=== PATIENT | male | born 1950 | race African-American/Black ===

== ENCOUNTER 2018-05-09 09:11 | Emergency (ER) | payer MEDICARE, OTHER, SELFPAY ==
[2018-05-09 09:13] VITALS: BP 166/70; PULSE 64; RESP 12; TEMP 36.3; O2SAT 100; BMI 39.7
--- NOTE | 2018-05-09 09:33 | DI.RAD.S_ITS ---
PROCEDURE: XR CHEST 2V INDICATIONS: burning in chest, right chest. TECHNIQUE: 2 views of the chest were acquired. COMPARISON: [facility], , CHEST 1 VIEW, 04/30/2013, 12:37. FINDINGS: Surgical changes and devices: None. Lungs and pleura: No pleural effusions or pneumothorax. Lungs are clear. Mediastinum: Mediastinal contours are normal. Heart size is normal. Bones and chest wall: No suspicious bony abnormalities. Soft tissues appear unremarkable. IMPRESSION: Mildly reduced inspiratory volume, no acute disease. Dictated by: Josué Figueroa M.D. on 05/09/2018 at 10:25 Approved by: Josué Figueroa M.D. on 05/09/2018 at 10:25
[2018-05-09 09:44] LABS: Add Manual Diff / Slide Review NO; Basophils Percent Auto 1.1 % (0-2); Eosinophils Percent Auto 4.7 % (2-4); Hematocrit 39.3 % (41-53); Hemoglobin 13.5 g/dL (13.5-17.5); Lymphocytes Percent Auto 36.7 % (25-40); Mean Corpuscular HGB Conc 34.3 % (30-36); Mean Corpuscular Hemoglobin 29.8 PG (26-34); Monocytes Percent Auto 9.2 % (3-14); Neutrophils Absolute Auto 1400 /uL (3000-5900); Neutrophils Percent Auto 48.3 % (50-75); Platelet Count 125 X10^3/uL (150-400); Red Blood Cell Count 4.52 X10^6/uL (4.5-5.9); Red Cell Distribution Width 15.6 % (11.6-14.8); White Blood Cell Count 2.9 X10^3/uL (4.5-11.0)
[2018-05-09 09:51] LABS: Prothrombin Time 11.1 SECONDS (10.1-12.7)
[2018-05-09 09:54] LABS: PTT Partial Thromboplastin Tim 27 SECONDS (26.4-36.2)
[2018-05-09 09:55] LABS: Alanine Aminotransferase 30 IU/L (21-72); Albumin 4.2 g/dL (3.5-5.0); Albumin Globulin Ratio 1.7 (1.0-2.8); Alkaline Phosphatase 92 U/L (38-126); Aspartate Aminotransferase 23 IU/L (17-59); BUN Creatinine Ratio 15.3 (6-22); Bilirubin Total 0.7 mg/dL (0.2-1.3); Blood Urea Nitrogen 26 mg/dL (9-20); Calcium 9.4 mg/dL (8.4-10.2); Carbon Dioxide 35 mmol/L (22-32); Chloride 96 mmol/L (98-107); Creatine Kinase 165 U/L (55-170); Estimated Glomerular Filt Rate 40.7 mL/min (>60); Globulin 2.5 g/dL (1.7-4.1); Glucose 228 mg/dL (80-110); HEMOLYSIS 16 (0-50); Lipase 77 U/L (23-300); Potassium 3.6 mmol/L (3.4-5.1); Sodium 140 mmol/L (137-145); Total Protein 6.7 g/dL (6.3-8.2)
[2018-05-09] MEDS: ASPIRIN 81 MG TAB 324 MG PO (09:55)
[2018-05-09 10:07] LABS: B Type Natriuretic Peptide < 100.0 (<100); Troponin I 0.022 ng/mL (0.01-0.034)
[2018-05-09 10:10] LABS: CKMB % Relative Index 0.6 % (1.5-5.0); Creatine Kinase MB 0.96 ng/mL (<2.37)
[2018-05-09 11:00] VITALS: BP 141/61; PULSE 65; O2SAT 98
[2018-05-09 12:00] VITALS: BP 137/61; PULSE 60; O2SAT 96
[2018-05-09 13:15] VITALS: BP 149/68; PULSE 64; O2SAT 97
--- NOTE | 2018-05-09 13:27 | ED.CHESTPAIN ---
HPI - Chest Pain General Chief Complaint: Chest Pain Stated Complaint: BURNING SENSATION IN CHEST/BACK,SORE IN APEX AREA History of Present Illness HPI narrative: HPI 67-year-old morbidly obese male with IDDM, asthma, CHF, renal insufficiency, HLD and atrial fibrillation presents for evaluation of 3 weeks of gradually progressive burning right-sided subpectoral/pectoral pain that radiates outwards around to his back is without clear provoking or relieving factors. Patient believes he may have had a recent stress test. Patient presented as his symptoms are worsened and he is unable to see his primary care physician. Patient denies recent immobilization, leg trauma, estrogen use, surgery in the last four weeks, hemoptysis, or malignancy in the last 6 months. [facility] a [facility] where requested and are unavailable. M/S/F/SocHx notable for: please see HPI; remainder reviewed with patient and in chart. ROS: Negative constitutional, eye, cardiovascular, pulmonary, GI, , MSK, skin, neurologic, psychiatric, endocrine unless noted in the HPI. Exam Gen: Pleasant, non-toxic appearing, resting comfortably. HEENT: NC, AT, PEERL, EOMI. Resp: Clear to auscultation bilaterally, normal work of breathing. Card: RRR with no M/R/G, no crackles in lung bases, no pedal edema, no JVD appreciated. GI: NT/ND Vascular: Both ankles, calves, and thighs of equal size, no calf tenderness to palpation bilaterally. MSK: No chest wall TTP. No visible deformities, strength and tone WNL. Skin: Normal color with no visible lesions, no vesicles on the chest. Neuro: AO x 3, no facial asymmetry, vision and hearing WNL. Psych: Mood and affect appropriate. Labs / Imaging (pertinent): WBC 2.9, Hb 13.5, PT/INR 1.0, Na 140, K 3.6, creatinine 1.70, glucose 228, total bilirubin 0.7, AST 23, ALT 30, ALP 92, lipase 77. Troponin (9:35 AM) 0.022, troponin (1:55 AM) 0.020, BNP <100 EKG: SR at 62 bpm, no OH segment depressions, no new ST segment changes, new LBBB, or T-wave changes that would suggest acute ischemia. CXR: mildly reduced inspiratory volume, no acute disease. MDM Previous chart, nursing note, and vitals reviewed. A: 67-year-old morbidly obese male with IDDM, asthma, CHF, renal insufficiency, HLD and atrial fibrillation presents for evaluation of 3 weeks of gradually progressive burning right-sided subpectoral/pectoral pain that radiates outwards around to his back is without clear provoking or relieving factors. DDx and Evaluation: * ACS - doubt ACS given a non-ischemic EKG and negative serial troponins. * UA - patient with the atypical history for unstable angina, HEART score 4 (Hx - 0, EKG - 0, age - 2, risk factors - 2, troponin - 0; 30 day MACE: 12 to 16.6%). Admission was discussed with the patient, patient would prefer to follow up with his home service technician, risks and benefits reviewed. * Pericarditis - consider pericarditis unlikely given the lack of OH segment depressions as well as the absence of diffuse ST-segment elevations, lack of reduction of pain when supine, and lack of a friction rub. * Myocarditis - unlikely given the negative troponin and an EKG without characteristic OH-segment or ST-segment changes. * Dissection - dissection is unlikely given symptoms, and lack of mediastinal widening. * PE - low clinical suspicion given history and alternate diagnosis, further risk stratification (e.g.) Well's not indicated. * Mediastinal Air - no evidence by CXR or auscultation. * Pneumothorax - no evidence by CXR or physical exam. * MSK - doubt given lack of reproducibility on exam. * Endocarditis - no identifiable risk factors, patient afebrile, no new murmurs appreciated on exam; doubt. * Cutaneous process - skin exam without identifiable abnormalities. ED Course: Vital signs remained stable and within clinically acceptable limits. Disposition: Discharge with PCP follow up. Return to care precautions given verbally and in writing. Impression: Chest Pain. (please reference below for remainder of encounter information) Related Data Home Medications Medication Instructions Recorded Confirmed carvedilol [Coreg] 12.5 mg PO BID #0 04/30/13 05/09/18 polyethylene glycol 3350 [Miralax] 17 gm PO QDAYP #0 04/30/13 allopurinol #0 04/16/17 amlodipine [Norvasc] 10 mg PO QDAY #0 04/16/17 05/09/18 bumetanide 6 mg PO DAILY #0 04/16/17 05/09/18 dexlansoprazole [Dexilant] 60 mg PO DAILY #0 04/16/17 05/09/18 diclofenac sodium [Voltaren] 1 tj TOPICAL BID #0 04/16/17 05/09/18 doxazosin [Cardura] 8 mg PO #0 04/16/17 fexofenadine #0 04/16/17 insulin aspart U-100 [Novolog 30 unit SQ TIDCC #0 04/16/17 Flexpen U-100 Insulin] insulin glargine [Lantus Solostar 60 unit SQ QPM #0 04/16/17 U-100 Insulin] oxybutynin chloride 5 mg PO BID #0 04/16/17 sildenafil [Viagra] 100 mg PO PRN PRN #0 04/16/17 Colace 05/09/18 flaxseed 05/09/18 Allergies Allergy/AdvReac Type Severity Reaction Status Date / Time No Known Drug Allergies Allergy Verified 05/09/18 09:17 [facility] Medical History Constipation (Acute) GERD (gastroesophageal reflux disease) (Acute) HTN (hypertension) (Acute) Heart failure (Acute) Hypercholesteremia (Acute) Knee pain (Acute) Renal disease (Acute) Social History Smoking Status: Former smoker Exam Initial Vital Signs Initial Vital Signs: Vital Signs Temperature 97.4 F L 05/09/18 09:13 Pulse Rate 64 05/09/18 09:13 Respiratory Rate 12 05/09/18 09:13 Blood Pressure 166/70 H 05/09/18 09:13 Pulse Oximetry 100 05/09/18 09:13 Course Orders Ordered: ED Orders 05/09/18 09:33 Chest [XR chest 2V] Stat EKG-12 Lead Stat 05/09/18 09:35 BNP [B Type Natriuretic Peptide] Stat Complete Blood Count AUTO DIFF Stat Comprehensive Metabolic Panel Stat Lipase Stat Partial Thromboplastin Time Stat Prothrombin Time INR Stat Troponin & CK Cardiac Panel Stat 05/09/18 11:55 Troponin I Stat Discontinued Medications Aspirin (Aspirin Chew) 324 mg PO NOW ONE Stop: 05/09/18 09:34 Last Admin: 05/09/18 09:55 Dose: 324 mg Vital Signs - 8 hr 05/09/18 09:13 05/09/18 11:00 05/09/18 12:00 Temperature 97.4 F L Pulse Rate 64 65 60 Respiratory Rate 12 Blood Pressure 166/70 H Blood Pressure [Left Arm] 141/61 H 137/61 H Pulse Oximetry 100 98 96 05/09/18 13:15 Temperature Pulse Rate 64 Respiratory Rate Blood Pressure Blood Pressure [Left Arm] 149/68 H Pulse Oximetry 97 MDM - Chest Pain Lab Data Result diagrams: 05/09/18 09:35 05/09/18 09:35 Lab Results 05/09/18 05/09/18 05/09/18 Range/Units 09:35 09:35 09:35 WBC 2.9 L (4.5-11.0) X10^3/uL RBC 4.52 (4.5-5.9) X10^6/uL Hgb 13.5 (13.5-17.5) g/dL Hct 39.3 L (41-53) % MCV 87.0 (80-100) fL MCH 29.8 (26-34) PG MCHC 34.3 (30-36) % RDW 15.6 H (11.6-14.8) % Plt Count 125 L (150-400) X10^3/uL Neut % (Auto) 48.3 L (50-75) % Lymph % (Auto) 36.7 (25-40) % Hopkins % (Auto) 9.2 (3-14) % Eos % (Auto) 4.7 H (2-4) % Baso % (Auto) 1.1 (0-2) % Neut # (Auto) 1400 L (5295-6277) /uL PT 11.1 (10.1-12.7) SECONDS INR 1.0 (0.9-1.3) APTT 27 (26.4-36.2) SECONDS Sodium 140 (137-145) mmol/L Potassium 3.6 (3.4-5.1) mmol/L Chloride 96 L (98-107) mmol/L Carbon Dioxide 35 H (22-32) mmol/L BUN 26 H (9-20) mg/dL Creatinine 1.70 H (0.66-1.25) mg/dL Estimated GFR 40.7 L (>60) mL/min BUN/Creatinine Ratio 15.3 (6-22) Glucose 228 H (80-110) mg/dL Calcium 9.4 (8.4-10.2) mg/dL Total Bilirubin 0.7 (0.2-1.3) mg/dL AST 23 (17-59) IU/L ALT 30 (21-72) IU/L Alkaline Phosphatase 92 (38-126) U/L Total Creatine Kinase 165 (55-170) U/L CK-MB (CK-2) 0.96 (<2.37) ng/mL CK-MB (CK-2) Rel Index 0.6 L (1.5-5.0) % Troponin I 0.022 (0.01-0.034) ng/mL B-Natriuretic Peptide (<100) Total Protein 6.7 (6.3-8.2) g/dL Albumin 4.2 (3.5-5.0) g/dL Globulin 2.5 (1.7-4.1) g/dL Albumin/Globulin Ratio 1.7 (1.0-2.8) Lipase 77 (23-300) U/L 05/09/18 05/09/18 Range/Units 09:35 11:55 WBC (4.5-11.0) X10^3/uL RBC (4.5-5.9) X10^6/uL Hgb (13.5-17.5) g/dL Hct (41-53) % MCV (80-100) fL MCH (26-34) PG MCHC (30-36) % RDW (11.6-14.8) % Plt Count (150-400) X10^3/uL Neut % (Auto) (50-75) % Lymph % (Auto) (25-40) % Hopkins % (Auto) (3-14) % Eos % (Auto) (2-4) % Baso % (Auto) (0-2) % Neut # (Auto) (0938-9991) /uL PT (10.1-12.7) SECONDS INR (0.9-1.3) APTT (26.4-36.2) SECONDS Sodium (137-145) mmol/L Potassium (3.4-5.1) mmol/L Chloride (98-107) mmol/L Carbon Dioxide (22-32) mmol/L BUN (9-20) mg/dL Creatinine (0.66-1.25) mg/dL Estimated GFR (>60) mL/min BUN/Creatinine Ratio (6-22) Glucose (80-110) mg/dL Calcium (8.4-10.2) mg/dL Total Bilirubin (0.2-1.3) mg/dL AST (17-59) IU/L ALT (21-72) IU/L Alkaline Phosphatase (38-126) U/L Total Creatine Kinase (55-170) U/L CK-MB (CK-2) (<2.37) ng/mL CK-MB (CK-2) Rel Index (1.5-5.0) % Troponin I 0.020 (0.01-0.034) ng/mL B-Natriuretic Peptide < 100.0 (<100) Total Protein (6.3-8.2) g/dL Albumin (3.5-5.0) g/dL Globulin (1.7-4.1) g/dL Albumin/Globulin Ratio (1.0-2.8) Lipase (23-300) U/L Discharge Plan Departure Prescriptions: No Action carvedilol [Coreg] 3.125 MG tablet 12.5 mg PO BID Qty: 0 RF: 0 polyethylene glycol 3350 [Miralax] 119 GM powder 17 gm PO QDAYP Qty: 0 RF: 0 insulin aspart U-100 [Novolog Flexpen U-100 Insulin] 100 UNIT/1 ML insulin pen 30 unit SQ TIDCC Qty: 0 RF: 0 diclofenac sodium [Voltaren] 1 % gel 1 tj Topical BID Qty: 0 RF: 0 dexlansoprazole [Dexilant] 60 MG capsule,biphase delayed releas 60 mg PO DAILY Qty: 0 RF: 0 insulin glargine [Lantus Solostar U-100 Insulin] 100 UNIT/1 ML insulin pen 60 unit SQ QPM Qty: 0 RF: 0 oxybutynin chloride 5 MG tablet 5 mg PO BID Qty: 0 RF: 0 bumetanide 1 MG tablet 6 mg PO DAILY Qty: 0 RF: 0 amlodipine [Norvasc] 5 MG tablet 10 mg PO QDAY Qty: 0 RF: 0 sildenafil [Viagra] 100 MG tablet 100 mg PO PRN PRN (Reason: Sexual Activity) Qty: 0 RF: 0 allopurinol 300 MG tablet Qty: 0 RF: 0 fexofenadine 180 MG tablet Qty: 0 RF: 0 doxazosin [Cardura] 8 MG tablet 8 mg PO Qty: 0 RF: 0 Colace RF: 0 flaxseed RF: 0
--- NOTE | 2018-05-10 11:43 | PC.NURSE ---
Follow up phone call: Spoke w/ patient. Has stress test scheduled tomorrow am. Denies new complaint at this time. Encouraged to f/u as needed and indicated and return for any difficulty or concerns.
== END 2018-05-09 13:49 | disposition home or self-care (01) ==
PROVIDERS: Emergency Provider Emergency Medicine
DX: R07.9 Chest pain, unspecified (principal)
CPT/HCPCS: 36415; 36591; 71046; 80053; 82550; 82553; 83690; 83880; 84484; 85025; 85610; 85730; 93005; 93010; 99283; 99285

== ENCOUNTER 2018-10-06 11:45 | Outpatient (RCR) | payer MEDICARE, OTHER, SELFPAY ==
--- NOTE | 2018-04-13 10:25 | PT.OIE ---
Current Diagnoses Spinal stenosis, cervical region (04/09/18) Lumbago with sciatica, left side (04/09/18) Weakness (04/09/18) Provider Visit Care Team Role Provider Type Yin Vásquez MD Family Provider Non-Staff Primary Care Provider Specialty: Medical Address: [address] [place] [address], [id number] Email: Gaurang Sam MD Attending Provider Physician Specialty: Orthopedic Surgery Address: [address] [place] [address], [id number] Email: [email or web address] Physical Therapy Initial Evaluation PT-OP-A Visit Information Start: 04/09/18 09:02 Freq: Status: Active Protocol: Document 04/09/18 09:05 [facility] (Rec: 04/13/18 10:13 [facility] [id number]) Out-Patient Physical Therapy Visit Information Visit Information Visit Type Initial Evaluation Visit Start Time 09:05 Visit Stop Time 09:45 Total Visit Minutes 40 Visit Number 1 Number of STEAM PRESS OPERATOR Visits 0 Evaluation Information Evaluation Date 04/09/18 PT-OP-B Current Condition Start: 04/09/18 09:02 Freq: Status: Active Protocol: Document 04/09/18 09:05 [facility] (Rec: 04/09/18 09:23 [facility] [id number]) Current Condition History of Current Condition Onset Date 30-40 yrs History of Current Condition Patient c/o constant pain, . Pinched nerves in neck causing pain into UEs, injection 03/29/18; pain better in right, but now has constant pain left. LBP L2 and L4 pinched nerves; left LE with burning and throbbing pain along entire outside of LE; injection planned for 04/19. 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 Unable to drive more than 15 minutes unless has heated seats then can last 1- 1 1/2 hrs. 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 States after doing any physical activities is often down for several days due to pain. and [id number] and daughter assist patient. Biggest goal is pain relief. PMH includes stage 4 kidney failure, CHF, HTN, diabetic polyneuropathy, DM. Patient has been referred for aquatic therapy Prior Treatments and Tests chiropractor, massage therapy, accupunture, shots, H-wave. Prior aquatic therapy at [facility]. Shallow water up to neck level is preference. No pain pills since 2006. Treatment Goals Patient/Caregiver Goals Pain relief, improved tolerance to activity Prior Functional Status Baseline Function- ADL's Independent Baseline Function- Mobility Independent Baseline Function- Gait no device Baseline Function- Work/School able to work, do yardwork Current Functional Impairments (Reported) Functional Limitations- ADL's All activity causes pain; assist of for dressing, bathing Functional Limitations- Mobility/Gait Requires 4WW for any community distances Functional Limitations- Work/School unable Personal Factors Other Personal Factors That May Effect depression Therapy/Recovery PT-OP-C Subjective Start: 04/09/18 09:02 Freq: Status: Active Protocol: Document 04/09/18 09:05 [facility] (Rec: 04/13/18 10:13 [facility] [id number]) Patient Questionnaires Neck Disability Index NDI Score 68 Neck Disability Index Impairment 60 to 79% Impaired (Score 30- 39) Oswestry Low Back Index Oswestry Score 76 Oswestry Impairment 60 to 79% Impaired (Score 60- 79) OP-PT Pain Assessment Pain Assessment Grid Paper Pain Assessment Grid Completed Yes Location Generalized Pain Location Details bilateral c/s, shld, and l/s; left UE, left LE Scale Used Numeric (1 - 10) Description Aching Burning Chronic Pressure Radiating Sharp Shooting Spasm Throbbing With Movement Radiating Location left UE and LE Pain Aggravating Factors Activity Exercise Pain Alleviating Factors None Home Pain Medication Use Pain Medications Used No Pain Behaviors Pain Behaviors Facial Grimacing Guarding Wincing Comments Pain Comments see pain diagram in paper chart PT-OP-E Functional Tests Start: 04/09/18 09:02 Freq: Status: Active Protocol: Document 04/09/18 09:05 [facility] (Rec: 04/13/18 10:13 [facility] [id number]) Functional Tests Maryey's Scratch Test Action 1: The subject is instructed to touch the opposite shoulder with his/her hand. This motion checks Glenohumeral adduction, internal rotation , horizontal adduction and scapular protraction Action 2: The subject is instructed to place his/her arm overhead and reach behind the neck to touch his/her upper back. This motion checks Glenohumeral abduction, external rotation and scapular upward rotation and elevation. Action 3: The subject puts his/her hand on the lower back and reaches upward as far as possible. This motion checks glenohumeral adduction, internal rotation and scapular retraction with downward rotation Action 1- Left front of chest Action 1- Right front of chest Action 2- Left side of neck Action 2- Right side of neck Action 3- Left side of hip Action 3- Right side of hip PT-OP-F Manual Assessment Start: 04/09/18 09:02 Freq: Status: Active Protocol: Document 04/09/18 09:05 [facility] (Rec: 04/13/18 10:13 [facility] [id number]) Manual Assessments Soft Tissue Assessment Soft Tissue Mobility Assessment difficult to assess due to high pain level PT-OP-G Mobility & Gait Start: 04/09/18 09:02 Freq: Status: Active Protocol: Document 04/09/18 09:05 [facility] (Rec: 04/13/18 10:13 [facility] [id number]) OP Mobility Evaluation Bed Mobility Rolling independent but painful Supine to and from Sit independent but painful Functional Movements Squats painful Other Functional Movements Unable to reach overhead or behind his back due to pain OP Gait Assessment Gait Gait Assistance Required: Independent Gait Deviations General Gait Pattern Wide Based Gait Comments Gait Comments slow, guarded, antalgic PT-OP-H Neuro Start: 04/09/18 09:02 Freq: Status: Active Protocol: Document 04/09/18 05:14 [facility] (Rec: 04/13/18 10:24 [facility] [id number]) Sensation Evaluation Gross Sensation Gross Sensation Left UE Impaired Right UE Impaired Left LE Impaired Right LE Impaired PT-OP-K Range of Motion Start: 04/09/18 09:02 Freq: Status: Active Protocol: Document 04/09/18 09:05 [facility] (Rec: 04/13/18 10:13 [facility] [id number]) Cervical Spine Range of Motion Cervical Spine Active Testing Position Sitting ROM Limitations Pain Comments moderately limited all motions due to pain Lumbar Spine Range of Motion Lumbar Spine Active ROM Limitations Pain Comments Moderately limited all motions due to pain Shoulder Goniometric Range of Motion Shoulder Measured in Degrees Left Shoulder ROM WFL No Right Shoulder ROM WFL No Shoulder ROM Limitations Shoulder ROM Limitations Muscle Weakness Pain Comments Unable to reach overhead or behind his back due to pain bilaterally Hip Goniometric Range of Motion Hip ROM Limitations Hip ROM Limitations Pain Comments moderately decreased due to pain bilaterally Knee Goniometric Range of Motion Knee ROM Limitations Comments WNL fuad Ankle and Foot Goniometric Range of Motion Ankle and Foot ROM Limitations Comments WNL fuad PT-OP-T Assessment and Plan Start: 04/13/18 10:13 Freq: Status: Active Protocol: Document 04/09/18 05:14 [facility] (Rec: 04/13/18 10:24 [facility] [id number]) Physical Therapy Assessment Rehab Potential Rehabilitation Potential Good Evaluation Complexity Number of Personal Factors/Comorbidities 3 or More Number of Body Systems Impaired 3 Clinical Presentation at Evaluation Evolving Impairments Impairments Activity Tolerance Functional Activities Functional Mobility Pain ROM Strength Goals Five Impairment activity intolerance Short Term Goal (STG) Patient able to tolerate 30-45 min aquatic exercise program without excess fatigue or pain STG Duration 6 wks Reverse Engineer Goal (LTG) Patient to be safe and independent in a 45 min aquatic exercise program for long-term pain managment and fitness Four Impairment ROM Reverse Engineer Goal (LTG) Improve ROM in neck, shoulders , spine, and hips to WFL with minimal to no pain including ability to reach overhead and behind his back so he can be independent with bathing and dressing. LTG Duration 3 months Three Impairment activity tolerance/functional mobility: Oswestry Disability Index 76% Short Term Goal (STG) Decrease Oswestry score to 60% STG Duration 6 wks Usp Goal (LTG) Decrease Oswestry score to no greater than 40% LTG Duration 3 months Two Impairment activity tolerance: neck disability index 68% Short Term Goal (STG) Decrease neck disability index score to 55% STG Duration 6 wks Usp Goal (LTG) Decrease neck disability index score to no greater than 40% LTG Duration 3 months One Impairment Pain 8-9/10 Short Term Goal (STG) Decrease pain to no greater than 7/10 STG Duration 6 wks Usp Goal (LTG) Decrease pain to no greater than 4/10 LTG Duration 3 months Assessment Summary Assessment Patient presents with function -limiting pain in cervical and lumbar spines with radicular symptoms into left UE and LE. This is complicated by DM with diabetic neuropathy, CHG, depression. Feel he would benefit highly from aquatic therapy for pain management, ROM, and strengthening to improve his function and quality of life. Physical Therapy Plan Frequency and Duration Frequency of Treatment 2x/Week Duration of Treatment 3 months Plan of Care Start Date 04/09/18 Plan of Care End Date 07/09/18 Therapeutic Interventions Therapeutic Interventions Aquatic Therapy Home Exercise Program Patient/Caregiver Education Next Visit Focus/Plan Next Note Type Treatment Note Next Visit Plan Initiate aquatic therapy.
--- NOTE | 2018-04-13 10:26 | PT.OPPOC ---
Current Diagnoses Spinal stenosis, cervical region (04/09/18) Lumbago with sciatica, left side (04/09/18) Weakness (04/09/18) Provider Visit Care Team Role Provider Type Yin Vásquez MD Family Provider Non-Staff Primary Care Provider Specialty: Medical Address: [address] [place] [address], [phone] Email: Gaurang Sam MD Attending Provider Physician Specialty: Orthopedic Surgery Address: [address] [place] [address], [phone] Email: [email or web address] Plan Of Care PT-OP-T Assessment and Plan Start: 04/13/18 10:13 Freq: Status: Active Protocol: Document 04/09/18 05:14 [facility] (Rec: 04/13/18 10:24 [facility] [id number]) Physical Therapy Assessment Rehab Potential Rehabilitation Potential Good Evaluation Complexity Number of Personal Factors/Comorbidities 3 or More Number of Body Systems Impaired 3 Clinical Presentation at Evaluation Evolving Impairments Impairments Activity Tolerance Functional Activities Functional Mobility Pain ROM Strength Goals Five Impairment activity intolerance Short Term Goal (STG) Patient able to tolerate 30-45 min aquatic exercise program without excess fatigue or pain STG Duration 6 wks Senior Living Goal (LTG) Patient to be safe and independent in a 45 min aquatic exercise program for long-term pain managment and fitness Four Impairment ROM Commodities Manager Goal (LTG) Improve ROM in neck, shoulders , spine, and hips to WFL with minimal to no pain including ability to reach overhead and behind his back so he can be independent with bathing and dressing. LTG Duration 3 months Three Impairment activity tolerance/functional mobility: Oswestry Disability Index 76% Short Term Goal (STG) Decrease Oswestry score to 60% STG Duration 6 wks Senior Living Goal (LTG) Decrease Oswestry score to no greater than 40% LTG Duration 3 months Two Impairment activity tolerance: neck disability index 68% Short Term Goal (STG) Decrease neck disability index score to 55% STG Duration 6 wks Senior Living Goal (LTG) Decrease neck disability index score to no greater than 40% LTG Duration 3 months One Impairment Pain 8-9/10 Short Term Goal (STG) Decrease pain to no greater than 7/10 STG Duration 6 wks Senior Living Goal (LTG) Decrease pain to no greater than 4/10 LTG Duration 3 months Assessment Summary Assessment Patient presents with function -limiting pain in cervical and lumbar spines with radicular symptoms into left UE and LE. This is complicated by DM with diabetic neuropathy, CHG, depression. Feel he would benefit highly from aquatic therapy for pain management, ROM, and strengthening to improve his function and quality of life. Physical Therapy Plan Frequency and Duration Frequency of Treatment 2x/Week Duration of Treatment 3 months Plan of Care Start Date 04/09/18 Plan of Care End Date 07/09/18 Therapeutic Interventions Therapeutic Interventions Aquatic Therapy Home Exercise Program Patient/Caregiver Education Next Visit Focus/Plan Next Note Type Treatment Note Next Visit Plan Initiate aquatic therapy. Plan of Care Dates Plan of Care Start Date 04/09/18 Plan of Care End Date 07/09/18 Please Sign and Return: I have reviewed this Plan of Care and certify that the skilled therapy services above are required to meet the patient?s needs. Physician Signature Date Printed Name and Credentials Clinical Instructor Signature Printed Name and Credentials
--- NOTE | 2018-05-03 13:45 | PT.OTN ---
Current Diagnoses Spinal stenosis, cervical region (05/03/18) Physical Therapy Treatment Note PT-OP-A Visit Information Start: 04/09/18 09:02 Freq: Status: Active Protocol: Document 05/03/18 13:45 [facility] (Rec: 05/03/18 16:37 [facility] [id number]) Out-Patient Physical Therapy Visit Information Visit Information Visit Type Treatment Note Visit Start Time 13:10 Visit Stop Time 13:45 Total Visit Minutes 35 Visit Number 2 Number of GRAVITY METER OBSERVER Visits 1 PT-OP-B Current Condition Start: 04/09/18 09:02 Freq: Status: Active Protocol: Document 04/09/18 09:05 [facility] (Rec: 04/09/18 09:23 [facility] [id number]) Current Condition History of Current Condition Onset Date 30-40 yrs History of Current Condition Patient c/o constant pain, . Pinched nerves in neck causing pain into UEs, injection 03/29/18; pain better in right, but now has constant pain left. LBP L2 and L4 pinched nerves; left LE with burning and throbbing pain along entire outside of LE; injection planned for 04/19. 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 Unable to drive more than 15 minutes unless has heated seats then can last 1- 1 1/2 hrs. 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 States after doing any physical activities is often down for several days due to pain. and [id number] and daughter assist patient. Biggest goal is pain relief. PMH includes stage 4 kidney failure, CHF, HTN, diabetic polyneuropathy, DM. Patient has been referred for aquatic therapy Prior Treatments and Tests chiropractor, massage therapy, accupunture, shots, H-wave. Prior aquatic therapy at [place] helpful. Shallow water up to neck level is preference. No pain pills since 2006. Treatment Goals Patient/Caregiver Goals Pain relief, improved tolerance to activity Prior Functional Status Baseline Function- ADL's Independent Baseline Function- Mobility Independent Baseline Function- Gait no device Baseline Function- Work/School able to work, do yardwork Current Functional Impairments (Reported) Functional Limitations- ADL's All activity causes pain; assist of for dressing, bathing Functional Limitations- Mobility/Gait Requires 4WW for any community distances Functional Limitations- Work/School unable Personal Factors Other Personal Factors That May Effect depression Therapy/Recovery PT-OP-C Subjective Start: 04/09/18 09:02 Freq: Status: Active Protocol: Document 05/03/18 13:45 [facility] (Rec: 05/03/18 16:37 [facility] [id number]) OP-PT Subjective Patient Comments Patient Comments Pt. is hoping aquatic therapy is helpful, states he's not comfortable going in deep water. PT-OP-E Functional Tests Start: 04/09/18 09:02 Freq: Status: Active Protocol: Document 04/09/18 09:05 [facility] (Rec: 04/13/18 10:13 [facility] [id number]) Functional Tests Apley's Scratch Test Action 1: The subject is instructed to touch the opposite shoulder with his/her hand. This motion checks Glenohumeral adduction, internal rotation , horizontal adduction and scapular protraction Action 2: The subject is instructed to place his/her arm overhead and reach behind the neck to touch his/her upper back. This motion checks Glenohumeral abduction, external rotation and scapular upward rotation and elevation. Action 3: The subject puts his/her hand on the lower back and reaches upward as far as possible. This motion checks glenohumeral adduction, internal rotation and scapular retraction with downward rotation Action 1- Left front of chest Action 1- Right front of chest Action 2- Left side of neck Action 2- Right side of neck Action 3- Left side of hip Action 3- Right side of hip PT-OP-F Manual Assessment Start: 04/09/18 09:02 Freq: Status: Active Protocol: Document 04/09/18 09:05 [facility] (Rec: 04/13/18 10:13 [facility] [id number]) Manual Assessments Soft Tissue Assessment Soft Tissue Mobility Assessment difficult to assess due to high pain level PT-OP-G Mobility & Gait Start: 04/09/18 09:02 Freq: Status: Active Protocol: Document 04/09/18 09:05 [facility] (Rec: 04/13/18 10:13 [facility] [id number]) OP Mobility Evaluation Bed Mobility Rolling independent but painful Supine to and from Sit independent but painful Functional Movements Squats painful Other Functional Movements Unable to reach overhead or behind his back due to pain OP Gait Assessment Gait Gait Assistance Required: Independent Gait Deviations General Gait Pattern Wide Based Gait Comments Gait Comments slow, guarded, antalgic PT-OP-H Neuro Start: 04/09/18 09:02 Freq: Status: Active Protocol: Document 04/09/18 05:14 [facility] (Rec: 04/13/18 10:24 [facility] [id number]) Sensation Evaluation Gross Sensation Gross Sensation Left UE Impaired Right UE Impaired Left LE Impaired Right LE Impaired PT-OP-K Range of Motion Start: 04/09/18 09:02 Freq: Status: Active Protocol: Document 04/09/18 09:05 [facility] (Rec: 04/13/18 10:13 [facility] [id number]) Cervical Spine Range of Motion Cervical Spine Active Testing Position Sitting ROM Limitations Pain Comments moderately limited all motions due to pain Lumbar Spine Range of Motion Lumbar Spine Active ROM Limitations Pain Comments Moderately limited all motions due to pain Shoulder Goniometric Range of Motion Shoulder Measured in Degrees Left Shoulder ROM WFL No Right Shoulder ROM WFL No Shoulder ROM Limitations Shoulder ROM Limitations Muscle Weakness Pain Comments Unable to reach overhead or behind his back due to pain bilaterally Hip Goniometric Range of Motion Hip ROM Limitations Hip ROM Limitations Pain Comments moderately decreased due to pain bilaterally Knee Goniometric Range of Motion Knee ROM Limitations Comments WNL fuad Ankle and Foot Goniometric Range of Motion Ankle and Foot ROM Limitations Comments WNL fuad PT-OP-S Aquatic Treatment Start: 04/13/18 10:13 Freq: Status: Active Protocol: Document 05/03/18 13:45 [facility] (Rec: 05/03/18 16:37 [facility] [id number]) Aquatics Treatment Pool Entry/Exit Pool Entry/Exit Method Stairs Assistance Standby Assistance Water Walking Marching Water Level Chest Level Sideways Water Level Chest Level Forwards Water Level Chest Level Lower Extremity Exercises 1 Details Hip flexion/ext, Hip AB, circles Body Position Standing Water Level Chest Level Reps/Duration x 10 reps. Comments Cues to keep ROM within tolerance. Lower Extremity Stretches 3 Details Single knee to chest Body Position Standing Reps/Duration x 2 2 Details Quad Body Position Standing Reps/Duration x 2 1 Details Hamstring Body Position Standing Reps/Duration x 2 PT-OP-T Assessment and Plan Start: 04/13/18 10:13 Freq: Status: Active Protocol: Document 05/03/18 13:45 [facility] (Rec: 05/03/18 16:37 [facility] [id number]) Physical Therapy Assessment Assessment Summary Assessment Pt. very limited with stretching, guarded with all mobility. Pt. cued to stay within tolerance ROM, pt. optimistic that aquatic therapy will be helpful. Physical Therapy Plan Frequency and Duration Frequency of Treatment 2x/Week Duration of Treatment 3 months Plan of Care Start Date 04/09/18 Plan of Care End Date 07/09/18 Next Visit Focus/Plan Next Visit Plan Continue to progress aquatics as tolerable.
--- NOTE | 2018-05-07 13:45 | PT.OTN ---
Current Diagnoses Spinal stenosis, cervical region (05/07/18) Physical Therapy Treatment Note PT-OP-A Visit Information Start: 04/09/18 09:02 Freq: Status: Active Protocol: Document 05/07/18 13:45 TMS (Rec: 05/07/18 16:26 TMS [email or web address]) Out-Patient Physical Therapy Visit Information Visit Information Visit Type Treatment Note Visit Start Time 13:15 Visit Stop Time 13:45 Total Visit Minutes 30 Visit Number 3 Number of GROUND WATER TECHNICIAN Visits 2 PT-OP-B Current Condition Start: 04/09/18 09:02 Freq: Status: Active Protocol: Document 04/09/18 09:05 SAK (Rec: 04/09/18 09:23 SAK [id number]) Current Condition History of Current Condition Onset Date 30-40 yrs History of Current Condition Patient c/o constant pain, . Pinched nerves in neck causing pain into UEs, injection 03/29/18; pain better in right, but now has constant pain left. LBP L2 and L4 pinched nerves; left LE with burning and throbbing pain along entire outside of LE; injection planned for 04/19. 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 Unable to drive more than 15 minutes unless has heated seats then can last 1- 1 1/2 hrs. States he was in [place] for 24 years. 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 States after doing any physical activities is often down for several days due to pain. and [id number] and daughter assist patient. Biggest goal is pain relief. PMH includes stage 4 kidney failure, CHF, HTN, diabetic polyneuropathy, DM. Patient has been referred for aquatic therapy Prior Treatments and Tests chiropractor, massage therapy, accupunture, shots, H-wave. Prior aquatic therapy at [facility] helpful. Shallow water up to neck level is preference. No pain pills since 2006. Treatment Goals Patient/Caregiver Goals Pain relief, improved tolerance to activity Prior Functional Status Baseline Function- ADL's Independent Baseline Function- Mobility Independent Baseline Function- Gait no device Baseline Function- Work/School able to work, do yardwork Current Functional Impairments (Reported) Functional Limitations- ADL's All activity causes pain; assist of for dressing, bathing Functional Limitations- Mobility/Gait Requires 4WW for any community distances Functional Limitations- Work/School unable Personal Factors Other Personal Factors That May Effect depression Therapy/Recovery PT-OP-C Subjective Start: 04/09/18 09:02 Freq: Status: Active Protocol: Document 05/07/18 13:45 TMS (Rec: 05/07/18 16:26 TMS [email or web address]) OP-PT Subjective Patient Comments Patient Comments Pt. states he felt better after first aquatics, I felt looser. Rates pain at 7/10 today. PT-OP-E Functional Tests Start: 04/09/18 09:02 Freq: Status: Active Protocol: Document 04/09/18 09:05 SAK (Rec: 04/13/18 10:13 SAK [id number]) Functional Tests Apley's Scratch Test Action 1: The subject is instructed to touch the opposite shoulder with his/her hand. This motion checks Glenohumeral adduction, internal rotation , horizontal adduction and scapular protraction Action 2: The subject is instructed to place his/her arm overhead and reach behind the neck to touch his/her upper back. This motion checks Glenohumeral abduction, external rotation and scapular upward rotation and elevation. Action 3: The subject puts his/her hand on the lower back and reaches upward as far as possible. This motion checks glenohumeral adduction, internal rotation and scapular retraction with downward rotation Action 1- Left front of chest Action 1- Right front of chest Action 2- Left side of neck Action 2- Right side of neck Action 3- Left side of hip Action 3- Right side of hip PT-OP-F Manual Assessment Start: 04/09/18 09:02 Freq: Status: Active Protocol: Document 04/09/18 09:05 SAK (Rec: 04/13/18 10:13 SAK [id number]) Manual Assessments Soft Tissue Assessment Soft Tissue Mobility Assessment difficult to assess due to high pain level PT-OP-G Mobility & Gait Start: 04/09/18 09:02 Freq: Status: Active Protocol: Document 04/09/18 09:05 SAK (Rec: 04/13/18 10:13 SAK [id number]) OP Mobility Evaluation Bed Mobility Rolling independent but painful Supine to and from Sit independent but painful Functional Movements Squats painful Other Functional Movements Unable to reach overhead or behind his back due to pain OP Gait Assessment Gait Gait Assistance Required: Independent Gait Deviations General Gait Pattern Wide Based Gait Comments Gait Comments slow, guarded, antalgic PT-OP-H Neuro Start: 04/09/18 09:02 Freq: Status: Active Protocol: Document 04/09/18 05:14 SAK (Rec: 04/13/18 10:24 SAK [id number]) Sensation Evaluation Gross Sensation Gross Sensation Left UE Impaired Right UE Impaired Left LE Impaired Right LE Impaired PT-OP-K Range of Motion Start: 04/09/18 09:02 Freq: Status: Active Protocol: Document 04/09/18 09:05 SAK (Rec: 04/13/18 10:13 SAK [id number]) Cervical Spine Range of Motion Cervical Spine Active Testing Position Sitting ROM Limitations Pain Comments moderately limited all motions due to pain Lumbar Spine Range of Motion Lumbar Spine Active ROM Limitations Pain Comments Moderately limited all motions due to pain Shoulder Goniometric Range of Motion Shoulder Measured in Degrees Left Shoulder ROM WFL No Right Shoulder ROM WFL No Shoulder ROM Limitations Shoulder ROM Limitations Muscle Weakness Pain Comments Unable to reach overhead or behind his back due to pain bilaterally Hip Goniometric Range of Motion Hip ROM Limitations Hip ROM Limitations Pain Comments moderately decreased due to pain bilaterally Knee Goniometric Range of Motion Knee ROM Limitations Comments WNL fuad Ankle and Foot Goniometric Range of Motion Ankle and Foot ROM Limitations Comments WNL fuad PT-OP-S Aquatic Treatment Start: 04/13/18 10:13 Freq: Status: Active Protocol: Document 05/07/18 13:45 TMS (Rec: 05/07/18 16:26 TMS [email or web address]) Aquatics Treatment Pool Entry/Exit Pool Entry/Exit Method Stairs Assistance Standby Assistance Lower Extremity Exercises 1 Details Hip flexion/ext, Hip AB, circles Body Position Standing Water Level Chest Level Reps/Duration x 10 reps. Comments Cues to keep ROM within tolerance. Lower Extremity Stretches 3 Details Single knee to chest Body Position Standing Reps/Duration x 2 Comments Using noodle under thigh to assist 1 Details Hamstring Body Position Standing Reps/Duration x 2 Upper Extremity Exercises 1 Details Shoulder Hor.AB/AD, flexion/ ext Body Position Standing Water Level Chest Level Reps/Duration x 10 Comments Core emphasis, bilateral and unilateral. York Activities York Activities Bicycle Equipment Square float/1 # ankle floats Duration 10 minutes Comments Pt. held onto tether, stayed close to shallow end. PT-OP-T Assessment and Plan Start: 04/13/18 10:13 Freq: Status: Active Protocol: Document 05/07/18 13:45 TMS (Rec: 05/07/18 16:26 TMS [email or web address]) Physical Therapy Assessment Assessment Summary Assessment Pt. needed cues to avoid twisting, cues not to overdo. Pt. liked deep water gait but shoulders were sore afterwards , might do better with belt vs . square float. Physical Therapy Plan Frequency and Duration Frequency of Treatment 2x/Week Duration of Treatment 3 months Plan of Care Start Date 04/09/18 Plan of Care End Date 07/09/18 Next Visit Focus/Plan Next Visit Plan Continue to progress aquatics as tolerable.
--- NOTE | 2018-05-24 16:03 | PT.OTN ---
Current Diagnoses Spinal stenosis, cervical region (05/24/18) Physical Therapy Treatment Note PT-OP-A Visit Information Start: 04/09/18 09:02 Freq: Status: Active Protocol: Document 05/24/18 13:00 CLB (Rec: 05/24/18 16:03 CLB [email or web address]) Out-Patient Physical Therapy Visit Information Visit Information Visit Type Treatment Note Visit Start Time 13:00 Visit Stop Time 13:40 Total Visit Minutes 40 Visit Number 4 Number of MANUAL EQUIPMENT MECHANIC Visits 3 PT-OP-B Current Condition Start: 04/09/18 09:02 Freq: Status: Active Protocol: Document 04/09/18 09:05 SAK (Rec: 04/09/18 09:23 SAK [id number]) Current Condition History of Current Condition Onset Date 30-40 yrs History of Current Condition Patient c/o constant pain, . Pinched nerves in neck causing pain into UEs, injection 03/29/18; pain better in right, but now has constant pain left. LBP L2 and L4 pinched nerves; left LE with burning and throbbing pain along entire outside of LE; injection planned for 04/19. 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 Unable to drive more than 15 minutes unless has heated seats then can last 1- 1 1/2 hrs. 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 States after doing any physical activities is often down for several days due to pain. and [id number] and daughter assist patient. Biggest goal is pain relief. PMH includes stage 4 kidney failure, CHF, HTN, diabetic polyneuropathy, DM. Patient has been referred for aquatic therapy Prior Treatments and Tests chiropractor, massage therapy, accupunture, shots, H-wave. Prior aquatic therapy at [place] helpful. Shallow water up to neck level is preference. No pain pills since 2006. Treatment Goals Patient/Caregiver Goals Pain relief, improved tolerance to activity Prior Functional Status Baseline Function- ADL's Independent Baseline Function- Mobility Independent Baseline Function- Gait no device Baseline Function- Work/School able to work, do yardwork Current Functional Impairments (Reported) Functional Limitations- ADL's All activity causes pain; assist of for dressing, bathing Functional Limitations- Mobility/Gait Requires 4WW for any community distances Functional Limitations- Work/School unable Personal Factors Other Personal Factors That May Effect depression Therapy/Recovery PT-OP-C Subjective Start: 04/09/18 09:02 Freq: Status: Active Protocol: Document 05/24/18 13:00 CLB (Rec: 05/24/18 16:03 CLB [email or web address]) OP-PT Subjective Patient Comments Patient Comments Pt states he feels being in the pool for therapy is already helping. He can do more in pool than he can on land. PT-OP-E Functional Tests Start: 04/09/18 09:02 Freq: Status: Active Protocol: Document 04/09/18 09:05 SAK (Rec: 04/13/18 10:13 SAK [id number]) Functional Tests Apley's Scratch Test Action 1: The subject is instructed to touch the opposite shoulder with his/her hand. This motion checks Glenohumeral adduction, internal rotation , horizontal adduction and scapular protraction Action 2: The subject is instructed to place his/her arm overhead and reach behind the neck to touch his/her upper back. This motion checks Glenohumeral abduction, external rotation and scapular upward rotation and elevation. Action 3: The subject puts his/her hand on the lower back and reaches upward as far as possible. This motion checks glenohumeral adduction, internal rotation and scapular retraction with downward rotation Action 1- Left front of chest Action 1- Right front of chest Action 2- Left side of neck Action 2- Right side of neck Action 3- Left side of hip Action 3- Right side of hip PT-OP-F Manual Assessment Start: 04/09/18 09:02 Freq: Status: Active Protocol: Document 04/09/18 09:05 SAK (Rec: 04/13/18 10:13 SAK [id number]) Manual Assessments Soft Tissue Assessment Soft Tissue Mobility Assessment difficult to assess due to high pain level PT-OP-G Mobility & Gait Start: 04/09/18 09:02 Freq: Status: Active Protocol: Document 04/09/18 09:05 SAK (Rec: 04/13/18 10:13 SAK [id number]) OP Mobility Evaluation Bed Mobility Rolling independent but painful Supine to and from Sit independent but painful Functional Movements Squats painful Other Functional Movements Unable to reach overhead or behind his back due to pain OP Gait Assessment Gait Gait Assistance Required: Independent Gait Deviations General Gait Pattern Wide Based Gait Comments Gait Comments slow, guarded, antalgic PT-OP-H Neuro Start: 04/09/18 09:02 Freq: Status: Active Protocol: Document 04/09/18 05:14 SAK (Rec: 04/13/18 10:24 SAK [id number]) Sensation Evaluation Gross Sensation Gross Sensation Left UE Impaired Right UE Impaired Left LE Impaired Right LE Impaired PT-OP-K Range of Motion Start: 04/09/18 09:02 Freq: Status: Active Protocol: Document 04/09/18 09:05 SAK (Rec: 04/13/18 10:13 SAK [id number]) Cervical Spine Range of Motion Cervical Spine Active Testing Position Sitting ROM Limitations Pain Comments moderately limited all motions due to pain Lumbar Spine Range of Motion Lumbar Spine Active ROM Limitations Pain Comments Moderately limited all motions due to pain Shoulder Goniometric Range of Motion Shoulder Measured in Degrees Left Shoulder ROM WFL No Right Shoulder ROM WFL No Shoulder ROM Limitations Shoulder ROM Limitations Muscle Weakness Pain Comments Unable to reach overhead or behind his back due to pain bilaterally Hip Goniometric Range of Motion Hip ROM Limitations Hip ROM Limitations Pain Comments moderately decreased due to pain bilaterally Knee Goniometric Range of Motion Knee ROM Limitations Comments WNL fuad Ankle and Foot Goniometric Range of Motion Ankle and Foot ROM Limitations Comments WNL fuad PT-OP-S Aquatic Treatment Start: 04/13/18 10:13 Freq: Status: Active Protocol: Document 05/24/18 13:00 CLB (Rec: 05/24/18 16:03 CLB [email or web address]) Aquatics Treatment Pool Entry/Exit Pool Entry/Exit Method Stairs Assistance Standby Assistance Water Walking Marching Water Level Chest Level Sideways Water Level Chest Level Forwards Water Level Chest Level Lower Extremity Exercises 1 Details Hip flexion/ext, Hip AB, circles Body Position Standing Water Level Chest Level Reps/Duration x 10 reps. Comments Cues to keep ROM within tolerance. Lower Extremity Stretches 3 Details Single knee to chest Body Position Standing Reps/Duration x 2 Comments Using noodle under thigh to assist 1 Details Hamstring Body Position Standing Reps/Duration x 2 Upper Extremity Exercises 1 Details Shoulder Hor.AB/AD, flexion/ ext Body Position Standing Water Level Chest Level Reps/Duration x 10 Comments Core emphasis, bilateral and unilateral. [place] Activities [place] Activities Bicycle Equipment [place] float/1 # ankle floats Duration 10 minutes PT-OP-T Assessment and Plan Start: 04/13/18 10:13 Freq: Status: Active Protocol: Document 05/24/18 13:00 CLB (Rec: 05/24/18 16:03 CLB [email or web address]) Physical Therapy Assessment Goals Five Impairment activity intolerance Short Term Goal (STG) Patient able to tolerate 30-45 min aquatic exercise program without excess fatigue or pain STG Duration 6 wks Lower In Supervisor Goal (LTG) Patient to be safe and independent in a 45 min aquatic exercise program for long-term pain managment and fitness Four Impairment ROM Group Home Goal (LTG) Improve ROM in neck, shoulders , spine, and hips to WFL with minimal to no pain including ability to reach overhead and behind his back so he can be independent with bathing and dressing. Three Impairment activity tolerance/functional mobility: Oswestry Disability Index 76% Short Term Goal (STG) Decrease Oswestry score to 60% STG Duration 6 wks Group Home Goal (LTG) Decrease Oswestry score to no greater than 40% LTG Duration 3 months Two Impairment activity tolerance: neck disability index 68% Short Term Goal (STG) Decrease neck disability index score to 55% STG Duration 6 wks Group Home Goal (LTG) Decrease neck disability index score to no greater than 40% LTG Duration 3 months One Impairment Pain 8-9/10 Short Term Goal (STG) Decrease pain to no greater than 7/10 STG Duration 6 wks Group Home Goal (LTG) Decrease pain to no greater than 4/10 LTG Duration 3 months Assessment Summary Assessment Pt improved with deep water cycling as he was able to cycle without use of tether. Physical Therapy Plan Frequency and Duration Frequency of Treatment 2x/Week Duration of Treatment 3 months Plan of Care Start Date 04/09/18 Plan of Care End Date 07/09/18 Next Visit Focus/Plan Next Visit Plan Continue to progress aquatics as tolerable.
--- NOTE | 2018-05-31 15:55 | PT.OTN ---
Current Diagnoses Spinal stenosis, cervical region (05/31/18) Physical Therapy Treatment Note PT-OP-A Visit Information Start: 04/09/18 09:02 Freq: Status: Active Protocol: Document 05/31/18 12:15 CLB (Rec: 05/31/18 15:54 CLB [email or web address]) Out-Patient Physical Therapy Visit Information Visit Information Visit Type Treatment Note Visit Start Time 12:45 Visit Stop Time 13:00 Total Visit Minutes 45 Visit Number 5 Number of VENDOR MANAGER Visits 4 PT-OP-B Current Condition Start: 04/09/18 09:02 Freq: Status: Active Protocol: Document 04/09/18 09:05 SAK (Rec: 04/09/18 09:23 SAK [id number]) Current Condition History of Current Condition Onset Date 30-40 yrs History of Current Condition Patient c/o constant pain, . Pinched nerves in neck causing pain into UEs, injection 03/29/18; pain better in right, but now has constant pain left. LBP L2 and L4 pinched nerves; left LE with burning and throbbing pain along entire outside of LE; injection planned for 04/19. 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 Unable to drive more than 15 minutes unless has heated seats then can last 1- 1 1/2 hrs. 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 States after doing any physical activities is often down for several days due to pain. and [id number] and daughter assist patient. Biggest goal is pain relief. PMH includes stage 4 kidney failure, CHF, HTN, diabetic polyneuropathy, DM. Patient has been referred for aquatic therapy Prior Treatments and Tests chiropractor, massage therapy, accupunture, shots, H-wave. Prior aquatic therapy at [place] helpful. Shallow water up to neck level is preference. No pain pills since 2006. Treatment Goals Patient/Caregiver Goals Pain relief, improved tolerance to activity Prior Functional Status Baseline Function- ADL's Independent Baseline Function- Mobility Independent Baseline Function- Gait no device Baseline Function- Work/School able to work, do yardwork Current Functional Impairments (Reported) Functional Limitations- ADL's All activity causes pain; assist of for dressing, bathing Functional Limitations- Mobility/Gait Requires 4WW for any community distances Functional Limitations- Work/School unable Personal Factors Other Personal Factors That May Effect depression Therapy/Recovery PT-OP-C Subjective Start: 04/09/18 09:02 Freq: Status: Active Protocol: Document 05/31/18 12:15 CLB (Rec: 05/31/18 15:54 CLB [email or web address]) OP-PT Subjective Patient Comments Patient Comments Pt states he is doing ok and that the pool helps him loosen up. Patient Reported Progress Same PT-OP-E Functional Tests Start: 04/09/18 09:02 Freq: Status: Active Protocol: Document 04/09/18 09:05 SAK (Rec: 04/13/18 10:13 [facility] [id number]) Functional Tests Apley's Scratch Test Action 1: The subject is instructed to touch the opposite shoulder with his/her hand. This motion checks Glenohumeral adduction, internal rotation , horizontal adduction and scapular protraction Action 2: The subject is instructed to place his/her arm overhead and reach behind the neck to touch his/her upper back. This motion checks Glenohumeral abduction, external rotation and scapular upward rotation and elevation. Action 3: The subject puts his/her hand on the lower back and reaches upward as far as possible. This motion checks glenohumeral adduction, internal rotation and scapular retraction with downward rotation Action 1- Left front of chest Action 1- Right front of chest Action 2- Left side of neck Action 2- Right side of neck Action 3- Left side of hip Action 3- Right side of hip PT-OP-F Manual Assessment Start: 04/09/18 09:02 Freq: Status: Active Protocol: Document 04/09/18 09:05 SAK (Rec: 04/13/18 10:13 SAK [id number]) Manual Assessments Soft Tissue Assessment Soft Tissue Mobility Assessment difficult to assess due to high pain level PT-OP-G Mobility & Gait Start: 04/09/18 09:02 Freq: Status: Active Protocol: Document 04/09/18 09:05 SAK (Rec: 04/13/18 10:13 SAK [id number]) OP Mobility Evaluation Bed Mobility Rolling independent but painful Supine to and from Sit independent but painful Functional Movements Squats painful Other Functional Movements Unable to reach overhead or behind his back due to pain OP Gait Assessment Gait Gait Assistance Required: Independent Gait Deviations General Gait Pattern Wide Based Gait Comments Gait Comments slow, guarded, antalgic PT-OP-H Neuro Start: 04/09/18 09:02 Freq: Status: Active Protocol: Document 04/09/18 05:14 SAK (Rec: 04/13/18 10:24 SAK [id number]) Sensation Evaluation Gross Sensation Gross Sensation Left UE Impaired Right UE Impaired Left LE Impaired Right LE Impaired PT-OP-K Range of Motion Start: 04/09/18 09:02 Freq: Status: Active Protocol: Document 04/09/18 09:05 SAK (Rec: 04/13/18 10:13 SAK [id number]) Cervical Spine Range of Motion Cervical Spine Active Testing Position Sitting ROM Limitations Pain Comments moderately limited all motions due to pain Lumbar Spine Range of Motion Lumbar Spine Active ROM Limitations Pain Comments Moderately limited all motions due to pain Shoulder Goniometric Range of Motion Shoulder Measured in Degrees Left Shoulder ROM WFL No Right Shoulder ROM WFL No Shoulder ROM Limitations Shoulder ROM Limitations Muscle Weakness Pain Comments Unable to reach overhead or behind his back due to pain bilaterally Hip Goniometric Range of Motion Hip ROM Limitations Hip ROM Limitations Pain Comments moderately decreased due to pain bilaterally Knee Goniometric Range of Motion Knee ROM Limitations Comments WNL fuad Ankle and Foot Goniometric Range of Motion Ankle and Foot ROM Limitations Comments WNL fuad PT-OP-S Aquatic Treatment Start: 04/13/18 10:13 Freq: Status: Active Protocol: Document 05/31/18 12:15 CLB (Rec: 05/31/18 15:54 CLB [email or web address]) Aquatics Treatment Water Walking Marching Water Level Chest Level Walking Equipment Resistance Fins Comments small green fins Sideways Water Level Chest Level Walking Equipment Resistance Fins Comments small green fins Forwards Water Level Chest Level Walking Equipment Resistance Fins Comments small green fins Lower Extremity Exercises 1 Details Hip flexion/ext, Hip AB, circles Body Position Standing Water Level Chest Level Equipment Resistance Fins(small green) Reps/Duration x 10 reps. Comments Cues to keep ROM within tolerance. Lower Extremity Stretches 3 Details Single knee to chest Body Position Standing Reps/Duration x 2 Comments Using noodle under thigh to assist 1 Details Hamstring Body Position Standing Reps/Duration x 2 Upper Extremity Exercises 1 Details Shoulder Hor.AB/AD, flexion/ ext Body Position Standing Water Level Chest Level Equipment UE paddles (open) Reps/Duration x 10 Comments Core emphasis, bilateral and unilateral. [place] Activities Equipment small [place] float/1# wt. Duration 10 minutes Comments cues for posture PT-OP-T Assessment and Plan Start: 04/13/18 10:13 Freq: Status: Active Protocol: Document 05/31/18 12:15 CLB (Rec: 05/31/18 15:54 CLB [email or web address]) Physical Therapy Assessment Goals Five Impairment activity intolerance Short Term Goal (STG) Patient able to tolerate 30-45 min aquatic exercise program without excess fatigue or pain STG Duration 6 wks Jail Goal (LTG) Patient to be safe and independent in a 45 min aquatic exercise program for long-term pain management and fitness Four Impairment ROM Jail Goal (LTG) Improve ROM in neck, shoulders , spine, and hips to WFL with minimal to no pain including ability to reach overhead and behind his back so he can be independent with bathing and dressing. Three Impairment activity tolerance/functional mobility: Oswestry Disability Index 76% Short Term Goal (STG) Decrease Oswestry score to 60% STG Duration 6 wks Auto Fleet Manager Goal (LTG) Decrease Oswestry score to no greater than 40% LTG Duration 3 months Two Impairment activity tolerance: neck disability index 68% Short Term Goal (STG) Decrease neck disability index score to 55% STG Duration 6 wks Jail Goal (LTG) Decrease neck disability index score to no greater than 40% LTG Duration 3 months One Impairment Pain 8-9/10 Short Term Goal (STG) Decrease pain to no greater than 7/10 STG Duration 6 wks Jail Goal (LTG) Decrease pain to no greater than 4/10 LTG Duration 3 months Assessment Summary Assessment Pt needs cues for posture with hip exercises as pt leans towards wall. Pt is continues to improve with deep water tolerance. Pt refused use of belt, noodle or arm circles, he prefers the [place] float. Physical Therapy Plan Frequency and Duration Frequency of Treatment 2x/Week Duration of Treatment 3 months Plan of Care Start Date 04/09/18 Plan of Care End Date 07/09/18 Next Visit Focus/Plan Next Visit Plan Continue to progress aquatics as tolerable.
--- NOTE | 2018-06-04 16:34 | PT.OTN ---
Current Diagnoses Spinal stenosis, cervical region (06/04/18) Physical Therapy Treatment Note PT-OP-A Visit Information Start: 04/09/18 09:02 Freq: Status: Active Protocol: Document 06/04/18 16:30 [facility] (Rec: 06/04/18 16:34 [facility] [id number]) Out-Patient Physical Therapy Visit Information Visit Information Visit Type Treatment Note Visit Start Time 11:45 Visit Stop Time 12:30 Total Visit Minutes 45 Visit Number 6 Number of ROLL THREADER OPERATOR Visits 0 PT-OP-B Current Condition Start: 04/09/18 09:02 Freq: Status: Active Protocol: Document 04/09/18 09:05 [facility] (Rec: 04/09/18 09:23 [facility] [id number]) Current Condition History of Current Condition Onset Date 30-40 yrs History of Current Condition Patient c/o constant pain, . Pinched nerves in neck causing pain into UEs, injection 03/29/18; pain better in right, but now has constant pain left. LBP L2 and L4 pinched nerves; left LE with burning and throbbing pain along entire outside of LE; injection planned for 04/19. 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 Unable to drive more than 15 minutes unless has heated seats then can last 1- 1 1/2 hrs. 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 States after doing any physical activities is often down for several days due to pain. and [id number] and daughter assist patient. Biggest goal is pain relief. PMH includes stage 4 kidney failure, CHF, HTN, diabetic polyneuropathy, DM. Patient has been referred for aquatic therapy Prior Treatments and Tests chiropractor, massage therapy, accupunture, shots, H-wave. Prior aquatic therapy at [place] helpful. Shallow water up to neck level is preference. No pain pills since 2006. Treatment Goals Patient/Caregiver Goals Pain relief, improved tolerance to activity Prior Functional Status Baseline Function- ADL's Independent Baseline Function- Mobility Independent Baseline Function- Gait no device Baseline Function- Work/School able to work, do yardwork Current Functional Impairments (Reported) Functional Limitations- ADL's All activity causes pain; assist of for dressing, bathing Functional Limitations- Mobility/Gait Requires 4WW for any community distances Functional Limitations- Work/School unable Personal Factors Other Personal Factors That May Effect depression Therapy/Recovery PT-OP-C Subjective Start: 04/09/18 09:02 Freq: Status: Active Protocol: Document 06/04/18 16:30 [facility] (Rec: 06/04/18 16:34 [facility] [id number]) OP-PT Subjective Patient Comments Patient Comments No new c/o, pain and numbness both decreased after aquatic therapy treatments. Patient Reported Progress Improving PT-OP-E Functional Tests Start: 04/09/18 09:02 Freq: Status: Active Protocol: Document 04/09/18 09:05 [facility] (Rec: 04/13/18 10:13 [facility] [id number]) Functional Tests Apley's Scratch Test Action 1: The subject is instructed to touch the opposite shoulder with his/her hand. This motion checks Glenohumeral adduction, internal rotation , horizontal adduction and scapular protraction Action 2: The subject is instructed to place his/her arm overhead and reach behind the neck to touch his/her upper back. This motion checks Glenohumeral abduction, external rotation and scapular upward rotation and elevation. Action 3: The subject puts his/her hand on the lower back and reaches upward as far as possible. This motion checks glenohumeral adduction, internal rotation and scapular retraction with downward rotation Action 1- Left front of chest Action 1- Right front of chest Action 2- Left side of neck Action 2- Right side of neck Action 3- Left side of hip Action 3- Right side of hip PT-OP-F Manual Assessment Start: 04/09/18 09:02 Freq: Status: Active Protocol: Document 04/09/18 09:05 [facility] (Rec: 04/13/18 10:13 [facility] [id number]) Manual Assessments Soft Tissue Assessment Soft Tissue Mobility Assessment difficult to assess due to high pain level PT-OP-G Mobility & Gait Start: 04/09/18 09:02 Freq: Status: Active Protocol: Document 04/09/18 09:05 [facility] (Rec: 04/13/18 10:13 [facility] [id number]) OP Mobility Evaluation Bed Mobility Rolling independent but painful Supine to and from Sit independent but painful Functional Movements Squats painful Other Functional Movements Unable to reach overhead or behind his back due to pain OP Gait Assessment Gait Gait Assistance Required: Independent Gait Deviations General Gait Pattern Wide Based Gait Comments Gait Comments slow, guarded, antalgic PT-OP-H Neuro Start: 04/09/18 09:02 Freq: Status: Active Protocol: Document 04/09/18 05:14 [facility] (Rec: 04/13/18 10:24 [facility] [id number]) Sensation Evaluation Gross Sensation Gross Sensation Left UE Impaired Right UE Impaired Left LE Impaired Right LE Impaired PT-OP-K Range of Motion Start: 04/09/18 09:02 Freq: Status: Active Protocol: Document 04/09/18 09:05 [facility] (Rec: 04/13/18 10:13 [facility] [id number]) Cervical Spine Range of Motion Cervical Spine Active Testing Position Sitting ROM Limitations Pain Comments moderately limited all motions due to pain Lumbar Spine Range of Motion Lumbar Spine Active ROM Limitations Pain Comments Moderately limited all motions due to pain Shoulder Goniometric Range of Motion Shoulder Measured in Degrees Left Shoulder ROM WFL No Right Shoulder ROM WFL No Shoulder ROM Limitations Shoulder ROM Limitations Muscle Weakness Pain Comments Unable to reach overhead or behind his back due to pain bilaterally Hip Goniometric Range of Motion Hip ROM Limitations Hip ROM Limitations Pain Comments moderately decreased due to pain bilaterally Knee Goniometric Range of Motion Knee ROM Limitations Comments WNL fuad Ankle and Foot Goniometric Range of Motion Ankle and Foot ROM Limitations Comments WNL fuad PT-OP-S Aquatic Treatment Start: 04/13/18 10:13 Freq: Status: Active Protocol: Document 06/04/18 16:30 [facility] (Rec: 06/04/18 16:34 [facility] [id number]) Aquatics Treatment Pool Entry/Exit Pool Entry/Exit Method Stairs Assistance Standby Assistance Water Walking [place] March Water Level Chest Level Walking Equipment Resistance Fins Comments small fins Marching Water Level Chest Level Walking Equipment Resistance Fins Comments small green fins Sideways Water Level Chest Level Walking Equipment Resistance Fins Comments small green fins Forwards Water Level Chest Level Walking Equipment Resistance Fins Comments small green fins Lower Extremity Exercises 1 Details Hip flexion/ext, Hip AB, circles Body Position Standing Water Level Chest Level Equipment Resistance Fins(small green) Reps/Duration 12 reps Comments Cues to keep ROM within tolerance. Lower Extremity Stretches 3 Details Single knee to chest Body Position Standing Reps/Duration x 2 Comments Using noodle under thigh to assist 1 Details Hamstring Body Position Standing Comments active Upper Extremity Exercises 1 Details Shoulder Hor.AB/AD, flexion/ ext Body Position Standing Water Level Chest Level Equipment UE paddles (open) Reps/Duration x 10 Comments Core emphasis, bilateral and unilateral. [place] Activities [place] Activities Bicycle Cross [place] Running Equipment small [place] float/1# wt. Duration 15 min PT-OP-T Assessment and Plan Start: 04/13/18 10:13 Freq: Status: Active Protocol: Document 06/04/18 16:30 [facility] (Rec: 06/04/18 16:34 [facility] [id number]) Physical Therapy Assessment Goals Five Impairment activity intolerance Short Term Goal (STG) Patient able to tolerate 30-45 min aquatic exercise program without excess fatigue or pain STG Duration 6 wks Residential Goal (LTG) Patient to be safe and independent in a 45 min aquatic exercise program for long-term pain managment and fitness Four Impairment ROM Natural Sciences Professor Goal (LTG) Improve ROM in neck, shoulders , spine, and hips to WFL with minimal to no pain including ability to reach overhead and behind his back so he can be independent with bathing and dressing. Three Impairment activity tolerance/functional mobility: Oswestry Disability Index 76% Short Term Goal (STG) Decrease Oswestry score to 60% STG Duration 6 wks Natural Sciences Professor Goal (LTG) Decrease Oswestry score to no greater than 40% LTG Duration 3 months Two Impairment activity tolerance: neck disability index 68% Short Term Goal (STG) Decrease neck disability index score to 55% STG Duration 6 wks Residential Goal (LTG) Decrease neck disability index score to no greater than 40% LTG Duration 3 months One Impairment Pain 8-9/10 Short Term Goal (STG) Decrease pain to no greater than 7/10 STG Duration 6 wks Natural Sciences Professor Goal (LTG) Decrease pain to no greater than 4/10 LTG Duration 3 months Assessment Summary Assessment decreased pain and numbness with aquatic therapy Physical Therapy Plan Frequency and Duration Frequency of Treatment 2x/Week Duration of Treatment 3 months Plan of Care Start Date 04/09/18 Plan of Care End Date 07/09/18 Next Visit Focus/Plan Next Visit Plan Aquatic PT for pain managment, strengthening, core stabilization, flexibility.
--- NOTE | 2018-06-09 14:39 | PT.OTN ---
Current Diagnoses Spinal stenosis, cervical region (06/09/18) Physical Therapy Treatment Note PT-OP-A Visit Information Start: 04/09/18 09:02 Freq: Status: Active Protocol: Document 06/09/18 12:30 [facility] (Rec: 06/09/18 14:39 [facility] [id number]) Out-Patient Physical Therapy Visit Information Visit Information Visit Type Treatment Note Visit Start Time 12:30 Visit Stop Time 13:15 Total Visit Minutes 45 Visit Number 7 Number of HEEL SLICKER Visits 1 PT-OP-B Current Condition Start: 04/09/18 09:02 Freq: Status: Active Protocol: Document 04/09/18 09:05 [facility] (Rec: 04/09/18 09:23 [facility] [id number]) Current Condition History of Current Condition Onset Date 30-40 yrs History of Current Condition Patient c/o constant pain, . Pinched nerves in neck causing pain into UEs, injection 03/29/18; pain better in right, but now has constant pain left. LBP L2 and L4 pinched nerves; left LE with burning and throbbing pain along entire outside of LE; injection planned for 04/19. 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 Unable to drive more than 15 minutes unless has heated seats then can last 1- 1 1/2 hrs. 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 States after doing any physical activities is often down for several days due to pain. and [id number] and daughter assist patient. Biggest goal is pain relief. PMH includes stage 4 kidney failure, CHF, HTN, diabetic polyneuropathy, DM. Patient has been referred for aquatic therapy Prior Treatments and Tests chiropractor, massage therapy, accupunture, shots, H-wave. Prior aquatic therapy at [place] helpful. Shallow water up to neck level is preference. No pain pills since 2006. Treatment Goals Patient/Caregiver Goals Pain relief, improved tolerance to activity Prior Functional Status Baseline Function- ADL's Independent Baseline Function- Mobility Independent Baseline Function- Gait no device Baseline Function- Work/School able to work, do yardwork Current Functional Impairments (Reported) Functional Limitations- ADL's All activity causes pain; assist of for dressing, bathing Functional Limitations- Mobility/Gait Requires 4WW for any community distances Functional Limitations- Work/School unable Personal Factors Other Personal Factors That May Effect depression Therapy/Recovery PT-OP-C Subjective Start: 04/09/18 09:02 Freq: Status: Active Protocol: Document 06/09/18 12:30 [facility] (Rec: 06/09/18 14:39 [facility] [id number]) OP-PT Subjective Patient Comments Patient Comments Pt states that the aquatic treatment helped for two days post tx. No new c/o pain. Patient Reported Progress Improving PT-OP-E Functional Tests Start: 04/09/18 09:02 Freq: Status: Active Protocol: Document 04/09/18 09:05 [facility] (Rec: 04/13/18 10:13 [facility] [id number]) Functional Tests Apley's Scratch Test Action 1: The subject is instructed to touch the opposite shoulder with his/her hand. This motion checks Glenohumeral adduction, internal rotation , horizontal adduction and scapular protraction Action 2: The subject is instructed to place his/her arm overhead and reach behind the neck to touch his/her upper back. This motion checks Glenohumeral abduction, external rotation and scapular upward rotation and elevation. Action 3: The subject puts his/her hand on the lower back and reaches upward as far as possible. This motion checks glenohumeral adduction, internal rotation and scapular retraction with downward rotation Action 1- Left front of chest Action 1- Right front of chest Action 2- Left side of neck Action 2- Right side of neck Action 3- Left side of hip Action 3- Right side of hip PT-OP-F Manual Assessment Start: 04/09/18 09:02 Freq: Status: Active Protocol: Document 04/09/18 09:05 [facility] (Rec: 04/13/18 10:13 [facility] [id number]) Manual Assessments Soft Tissue Assessment Soft Tissue Mobility Assessment difficult to assess due to high pain level PT-OP-G Mobility & Gait Start: 04/09/18 09:02 Freq: Status: Active Protocol: Document 04/09/18 09:05 [facility] (Rec: 04/13/18 10:13 [facility] [id number]) OP Mobility Evaluation Bed Mobility Rolling independent but painful Supine to and from Sit independent but painful Functional Movements Squats painful Other Functional Movements Unable to reach overhead or behind his back due to pain OP Gait Assessment Gait Gait Assistance Required: Independent Gait Deviations General Gait Pattern Wide Based Gait Comments Gait Comments slow, guarded, antalgic PT-OP-H Neuro Start: 04/09/18 09:02 Freq: Status: Active Protocol: Document 04/09/18 05:14 [facility] (Rec: 04/13/18 10:24 [facility] [id number]) Sensation Evaluation Gross Sensation Gross Sensation Left UE Impaired Right UE Impaired Left LE Impaired Right LE Impaired PT-OP-K Range of Motion Start: 04/09/18 09:02 Freq: Status: Active Protocol: Document 04/09/18 09:05 [facility] (Rec: 04/13/18 10:13 [facility] [id number]) Cervical Spine Range of Motion Cervical Spine Active Testing Position Sitting ROM Limitations Pain Comments moderately limited all motions due to pain Lumbar Spine Range of Motion Lumbar Spine Active ROM Limitations Pain Comments Moderately limited all motions due to pain Shoulder Goniometric Range of Motion Shoulder Measured in Degrees Left Shoulder ROM WFL No Right Shoulder ROM WFL No Shoulder ROM Limitations Shoulder ROM Limitations Muscle Weakness Pain Comments Unable to reach overhead or behind his back due to pain bilaterally Hip Goniometric Range of Motion Hip ROM Limitations Hip ROM Limitations Pain Comments moderately decreased due to pain bilaterally Knee Goniometric Range of Motion Knee ROM Limitations Comments WNL fuad Ankle and Foot Goniometric Range of Motion Ankle and Foot ROM Limitations Comments WNL fuad PT-OP-S Aquatic Treatment Start: 04/13/18 10:13 Freq: Status: Active Protocol: Document 06/09/18 12:30 [facility] (Rec: 06/09/18 14:39 [facility] [id number]) Aquatics Treatment Pool Entry/Exit Pool Entry/Exit Method Stairs Assistance Standby Assistance Water Walking [place] March Water Level Chest Level Walking Equipment Resistance Fins Comments small fins Marching Water Level Chest Level Walking Equipment Resistance Fins Comments small green fins Sideways Water Level Chest Level Walking Equipment Resistance Fins Comments small green fins Forwards Water Level Chest Level Walking Equipment Resistance Fins Comments small green fins Lower Extremity Exercises 1 Details Hip flexion/ext, Hip AB, circles Body Position Standing Water Level Chest Level Equipment Resistance Fins(small green) Reps/Duration 12 reps Comments cues for breathing-not holding breath Lower Extremity Stretches 3 Details Single knee to chest Body Position Standing Reps/Duration x 2 Comments foot cramped with noodle 2 Details quad Body Position Standing Water Level Waist Level Equipment [place] Float Reps/Duration foot cramped 1 Details Hamstring Body Position Standing Comments active Upper Extremity Exercises 1 Details Shoulder Hor.AB/AD, flexion/ ext Body Position Standing Water Level Chest Level Reps/Duration x 10 Spinal Exercises 2 Details shoot through/pendulum Body Position Standing Water Level [place] Equipment [place] Float 1 Details lateral flexion Body Position Standing Water Level Waist Level Reps/Duration 5 bilat [place] Activities [place] Activities Bicycle Cross Country Running Equipment small [place] float/1# wt. Duration 15 min PT-OP-T Assessment and Plan Start: 04/13/18 10:13 Freq: Status: Active Protocol: Document 06/09/18 12:30 [facility] (Rec: 06/09/18 14:39 [facility] [id number]) Physical Therapy Assessment Goals Five Impairment activity intolerance Short Term Goal (STG) Patient able to tolerate 30-45 min aquatic exercise program without excess fatigue or pain STG Duration 6 wks Body Rolling Machine Tender Goal (LTG) Patient to be safe and independent in a 45 min aquatic exercise program for long-term pain managment and fitness Four Impairment ROM Usp Goal (LTG) Improve ROM in neck, shoulders , spine, and hips to WFL with minimal to no pain including ability to reach overhead and behind his back so he can be independent with bathing and dressing. Three Impairment activity tolerance/functional mobility: Oswestry Disability Index 76% Short Term Goal (STG) Decrease Oswestry score to 60% STG Duration 6 wks Body Rolling Machine Tender Goal (LTG) Decrease Oswestry score to no greater than 40% LTG Duration 3 months Two Impairment activity tolerance: neck disability index 68% Short Term Goal (STG) Decrease neck disability index score to 55% STG Duration 6 wks Body Rolling Machine Tender Goal (LTG) Decrease neck disability index score to no greater than 40% LTG Duration 3 months One Impairment Pain 8-9/10 Short Term Goal (STG) Decrease pain to no greater than 7/10 STG Duration 6 wks Body Rolling Machine Tender Goal (LTG) Decrease pain to no greater than 4/10 LTG Duration 3 months Assessment Summary Assessment Pt tolerated exercises with some foot cramping. Shoulders got sore with [place] float. Physical Therapy Plan Frequency and Duration Frequency of Treatment 2x/Week Duration of Treatment 3 months Plan of Care Start Date 04/09/18 Plan of Care End Date 07/09/18 Next Visit Focus/Plan Next Visit Plan Aquatic PT for pain managment, strengthening, core stabilization, flexibility.
--- NOTE | 2018-06-11 15:08 | PT.OTN ---
Current Diagnoses Spinal stenosis, cervical region (06/11/18) Physical Therapy Treatment Note PT-OP-A Visit Information Start: 04/09/18 09:02 Freq: Status: Active Protocol: Document 06/11/18 12:15 LJ (Rec: 06/11/18 15:08 LJ [email or web address]) Out-Patient Physical Therapy Visit Information Visit Information Visit Type Treatment Note Visit Start Time 12:15 Visit Stop Time 13:15 Total Visit Minutes 60 PT-OP-B Current Condition Start: 04/09/18 09:02 Freq: Status: Active Protocol: Document 04/09/18 09:05 SAK (Rec: 04/09/18 09:23 SAK [id number]) Current Condition History of Current Condition Onset Date 30-40 yrs History of Current Condition Patient c/o constant pain, . Pinched nerves in neck causing pain into UEs, injection 03/29/18; pain better in right, but now has constant pain left. LBP L2 and L4 pinched nerves; left LE with burning and throbbing pain along entire outside of LE; injection planned for 04/19. 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 Unable to drive more than 15 minutes unless has heated seats then can last 1- 1 1/2 hrs. 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 States after doing any physical activities is often down for several days due to pain. and [id number] and daughter assist patient. Biggest goal is pain relief. PMH includes stage 4 kidney failure, CHF, HTN, diabetic polyneuropathy, DM. Patient has been referred for aquatic therapy Prior Treatments and Tests chiropractor, massage therapy, accupunture, shots, H-wave. Prior aquatic therapy at [facility] helpful. Shallow water up to neck level is preference. No pain pills since 2006. Treatment Goals Patient/Caregiver Goals Pain relief, improved tolerance to activity Prior Functional Status Baseline Function- ADL's Independent Baseline Function- Mobility Independent Baseline Function- Gait no device Baseline Function- Work/School able to work, do yardwork Current Functional Impairments (Reported) Functional Limitations- ADL's All activity causes pain; assist of for dressing, bathing Functional Limitations- Mobility/Gait Requires 4WW for any community distances Functional Limitations- Work/School unable Personal Factors Other Personal Factors That May Effect depression Therapy/Recovery PT-OP-C Subjective Start: 04/09/18 09:02 Freq: Status: Active Protocol: Document 06/11/18 12:15 LJ (Rec: 06/11/18 15:08 LJ [email or web address]) OP-PT Subjective Patient Comments Patient Comments Pt states the stretching of LEs caused residual pain after treatment. PT-OP-E Functional Tests Start: 04/09/18 09:02 Freq: Status: Active Protocol: Document 04/09/18 09:05 SAK (Rec: 04/13/18 10:13 SAK [id number]) Functional Tests Apley's Scratch Test Action 1: The subject is instructed to touch the opposite shoulder with his/her hand. This motion checks Glenohumeral adduction, internal rotation , horizontal adduction and scapular protraction Action 2: The subject is instructed to place his/her arm overhead and reach behind the neck to touch his/her upper back. This motion checks Glenohumeral abduction, external rotation and scapular upward rotation and elevation. Action 3: The subject puts his/her hand on the lower back and reaches upward as far as possible. This motion checks glenohumeral adduction, internal rotation and scapular retraction with downward rotation Action 1- Left front of chest Action 1- Right front of chest Action 2- Left side of neck Action 2- Right side of neck Action 3- Left side of hip Action 3- Right side of hip PT-OP-F Manual Assessment Start: 04/09/18 09:02 Freq: Status: Active Protocol: Document 04/09/18 09:05 [facility] (Rec: 04/13/18 10:13 SAK [id number]) Manual Assessments Soft Tissue Assessment Soft Tissue Mobility Assessment difficult to assess due to high pain level PT-OP-G Mobility & Gait Start: 04/09/18 09:02 Freq: Status: Active Protocol: Document 04/09/18 09:05 SAK (Rec: 04/13/18 10:13 SAK [id number]) OP Mobility Evaluation Bed Mobility Rolling independent but painful Supine to and from Sit independent but painful Functional Movements Squats painful Other Functional Movements Unable to reach overhead or behind his back due to pain OP Gait Assessment Gait Gait Assistance Required: Independent Gait Deviations General Gait Pattern Wide Based Gait Comments Gait Comments slow, guarded, antalgic PT-OP-H Neuro Start: 04/09/18 09:02 Freq: Status: Active Protocol: Document 04/09/18 05:14 SAK (Rec: 04/13/18 10:24 SAK [id number]) Sensation Evaluation Gross Sensation Gross Sensation Left UE Impaired Right UE Impaired Left LE Impaired Right LE Impaired PT-OP-K Range of Motion Start: 04/09/18 09:02 Freq: Status: Active Protocol: Document 04/09/18 09:05 SAK (Rec: 04/13/18 10:13 SAK [id number]) Cervical Spine Range of Motion Cervical Spine Active Testing Position Sitting ROM Limitations Pain Comments moderately limited all motions due to pain Lumbar Spine Range of Motion Lumbar Spine Active ROM Limitations Pain Comments Moderately limited all motions due to pain Shoulder Goniometric Range of Motion Shoulder Measured in Degrees Left Shoulder ROM WFL No Right Shoulder ROM WFL No Shoulder ROM Limitations Shoulder ROM Limitations Muscle Weakness Pain Comments Unable to reach overhead or behind his back due to pain bilaterally Hip Goniometric Range of Motion Hip ROM Limitations Hip ROM Limitations Pain Comments moderately decreased due to pain bilaterally Knee Goniometric Range of Motion Knee ROM Limitations Comments WNL fuad Ankle and Foot Goniometric Range of Motion Ankle and Foot ROM Limitations Comments WNL fuad PT-OP-S Aquatic Treatment Start: 04/13/18 10:13 Freq: Status: Active Protocol: Document 06/11/18 12:15 LJ (Rec: 06/11/18 15:08 LJ [email or web address]) Aquatics Treatment Pool Entry/Exit Pool Entry/Exit Method Stairs Assistance Standby Assistance Water Walking [place] March Water Level Chest Level Walking Equipment Resistance Fins Comments small fins Marching Water Level Chest Level Walking Equipment Resistance Fins Comments small green fins Sideways Water Level Chest Level Walking Equipment Resistance Fins Comments small green fins Forwards Water Level Chest Level Walking Equipment Resistance Fins Comments small green fins Lower Extremity Exercises 1 Details Hip flexion/ext, Hip AB, circles Body Position Standing Water Level Chest Level Equipment Resistance Fins(small green) Reps/Duration 12 reps Comments cues for breathing-not holding breath Upper Extremity Exercises 1 Details Shoulder Hor.AB/AD, flexion/ ext Body Position Standing Water Level Chest Level Reps/Duration x 10 Spinal Exercises 3 Details traction Water Level [place] Reps/Duration 10 min Comments #5 ankle [place] Activities [place] Activities Bicycle Cross Country Running Hip Abduction/Adduction Sit Kicks Equipment small [place] float Duration 15 min PT-OP-T Assessment and Plan Start: 04/13/18 10:13 Freq: Status: Active Protocol: Document 06/11/18 12:15 CHRISTINA (Rec: 06/11/18 15:08 CHRISTINA [email or web address]) Physical Therapy Assessment Goals Five Impairment activity intolerance Short Term Goal (STG) Patient able to tolerate 30-45 min aquatic exercise program without excess fatigue or pain STG Duration 6 wks Park Interpretive Specialist Goal (LTG) Patient to be safe and independent in a 45 min aquatic exercise program for long-term pain managment and fitness Four Impairment ROM Park Interpretive Specialist Goal (LTG) Improve ROM in neck, shoulders , spine, and hips to WFL with minimal to no pain including ability to reach overhead and behind his back so he can be independent with bathing and dressing. Three Impairment activity tolerance/functional mobility: Oswestry Disability Index 76% Short Term Goal (STG) Decrease Oswestry score to 60% STG Duration 6 wks Park Interpretive Specialist Goal (LTG) Decrease Oswestry score to no greater than 40% LTG Duration 3 months Two Impairment activity tolerance: neck disability index 68% Short Term Goal (STG) Decrease neck disability index score to 55% STG Duration 6 wks Retirement Goal (LTG) Decrease neck disability index score to no greater than 40% LTG Duration 3 months One Impairment Pain 8-9/10 Short Term Goal (STG) Decrease pain to no greater than 7/10 STG Duration 6 wks Retirement Goal (LTG) Decrease pain to no greater than 4/10 LTG Duration 3 months Assessment Summary Assessment Pt arrived 15 min early. Increased exertion with exercises particularly post traction. Required mod cues for breath holding. Physical Therapy Plan Frequency and Duration Frequency of Treatment 2x/Week Duration of Treatment 3 months Plan of Care Start Date 04/09/18 Plan of Care End Date 07/09/18 Next Visit Focus/Plan Next Visit Plan Aquatic PT for pain managment, strengthening, core stabilization, flexibility.
--- NOTE | 2018-06-14 15:28 | PT.OTN ---
Current Diagnoses Spinal stenosis, cervical region (06/14/18) Physical Therapy Treatment Note PT-OP-A Visit Information Start: 04/09/18 09:02 Freq: Status: Active Protocol: Document 06/14/18 12:30 CLB (Rec: 06/14/18 15:28 CLB [email or web address]) Out-Patient Physical Therapy Visit Information Visit Information Visit Type Treatment Note Visit Start Time 12:30 Visit Stop Time 13:10 Total Visit Minutes 40 Visit Number 9 Number of BAIT TIER Visits 3 PT-OP-B Current Condition Start: 04/09/18 09:02 Freq: Status: Active Protocol: Document 04/09/18 09:05 SAK (Rec: 04/09/18 09:23 SAK [id number]) Current Condition History of Current Condition Onset Date 30-40 yrs History of Current Condition Patient c/o constant pain, . Pinched nerves in neck causing pain into UEs, injection 03/29/18; pain better in right, but now has constant pain left. LBP L2 and L4 pinched nerves; left LE with burning and throbbing pain along entire outside of LE; injection planned for 04/19. 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 Unable to drive more than 15 minutes unless has heated seats then can last 1- 1 1/2 hrs. 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 States after doing any physical activities is often down for several days due to pain. and [id number] and daughter assist patient. Biggest goal is pain relief. PMH includes stage 4 kidney failure, CHF, HTN, diabetic polyneuropathy, DM. Patient has been referred for aquatic therapy Prior Treatments and Tests chiropractor, massage therapy, accupunture, shots, H-wave. Prior aquatic therapy at [facility] helpful. Shallow water up to neck level is preference. No pain pills since 2006. Treatment Goals Patient/Caregiver Goals Pain relief, improved tolerance to activity Prior Functional Status Baseline Function- ADL's Independent Baseline Function- Mobility Independent Baseline Function- Gait no device Baseline Function- Work/School able to work, do yardwork Current Functional Impairments (Reported) Functional Limitations- ADL's All activity causes pain; assist of for dressing, bathing Functional Limitations- Mobility/Gait Requires 4WW for any community distances Functional Limitations- Work/School unable Personal Factors Other Personal Factors That May Effect depression Therapy/Recovery PT-OP-C Subjective Start: 04/09/18 09:02 Freq: Status: Active Protocol: Document 06/14/18 12:30 CLB (Rec: 06/14/18 15:28 CLB [email or web address]) OP-PT Subjective Patient Comments Patient Comments Pt states he feels best on days he is in the pool for therapy. PT-OP-E Functional Tests Start: 04/09/18 09:02 Freq: Status: Active Protocol: Document 04/09/18 09:05 SAK (Rec: 04/13/18 10:13 SAK [id number]) Functional Tests Apley's Scratch Test Action 1: The subject is instructed to touch the opposite shoulder with his/her hand. This motion checks Glenohumeral adduction, internal rotation , horizontal adduction and scapular protraction Action 2: The subject is instructed to place his/her arm overhead and reach behind the neck to touch his/her upper back. This motion checks Glenohumeral abduction, external rotation and scapular upward rotation and elevation. Action 3: The subject puts his/her hand on the lower back and reaches upward as far as possible. This motion checks glenohumeral adduction, internal rotation and scapular retraction with downward rotation Action 1- Left front of chest Action 1- Right front of chest Action 2- Left side of neck Action 2- Right side of neck Action 3- Left side of hip Action 3- Right side of hip PT-OP-F Manual Assessment Start: 04/09/18 09:02 Freq: Status: Active Protocol: Document 04/09/18 09:05 SAK (Rec: 04/13/18 10:13 SAK [id number]) Manual Assessments Soft Tissue Assessment Soft Tissue Mobility Assessment difficult to assess due to high pain level PT-OP-G Mobility & Gait Start: 04/09/18 09:02 Freq: Status: Active Protocol: Document 04/09/18 09:05 SAK (Rec: 04/13/18 10:13 SAK [id number]) OP Mobility Evaluation Bed Mobility Rolling independent but painful Supine to and from Sit independent but painful Functional Movements Squats painful Other Functional Movements Unable to reach overhead or behind his back due to pain OP Gait Assessment Gait Gait Assistance Required: Independent Gait Deviations General Gait Pattern Wide Based Gait Comments Gait Comments slow, guarded, antalgic PT-OP-H Neuro Start: 04/09/18 09:02 Freq: Status: Active Protocol: Document 04/09/18 05:14 SAK (Rec: 04/13/18 10:24 SAK [id number]) Sensation Evaluation Gross Sensation Gross Sensation Left UE Impaired Right UE Impaired Left LE Impaired Right LE Impaired PT-OP-K Range of Motion Start: 04/09/18 09:02 Freq: Status: Active Protocol: Document 04/09/18 09:05 SAK (Rec: 04/13/18 10:13 SAK [id number]) Cervical Spine Range of Motion Cervical Spine Active Testing Position Sitting ROM Limitations Pain Comments moderately limited all motions due to pain Lumbar Spine Range of Motion Lumbar Spine Active ROM Limitations Pain Comments Moderately limited all motions due to pain Shoulder Goniometric Range of Motion Shoulder Measured in Degrees Left Shoulder ROM WFL No Right Shoulder ROM WFL No Shoulder ROM Limitations Shoulder ROM Limitations Muscle Weakness Pain Comments Unable to reach overhead or behind his back due to pain bilaterally Hip Goniometric Range of Motion Hip ROM Limitations Hip ROM Limitations Pain Comments moderately decreased due to pain bilaterally Knee Goniometric Range of Motion Knee ROM Limitations Comments WNL fuad Ankle and Foot Goniometric Range of Motion Ankle and Foot ROM Limitations Comments WNL fuad PT-OP-S Aquatic Treatment Start: 04/13/18 10:13 Freq: Status: Active Protocol: Document 06/14/18 12:30 CLB (Rec: 06/14/18 15:28 CLB [email or web address]) Aquatics Treatment Lower Extremity Exercises squats Details mini Body Position Standing Water Level Chest Level Reps/Duration 10 Comments mini squates with cues for posture 1 Details Hip flexion/ext, Hip AB, circles Body Position Standing Water Level Chest Level Equipment Resistance Fins(small green) Reps/Duration 12 reps Comments Cues to keep ROM within tolerance. Lower Extremity Stretches 1 Details Hamstring Body Position Standing Comments active Upper Extremity Exercises 1 Details Shoulder Hor.AB/AD, flexion/ ext Body Position Standing Water Level Chest Level Reps/Duration x 10 Spinal Exercises 3 Details traction Water Level [place] Reps/Duration during rest breaks in deep water Comments #5 ankle [place] Activities [place] Activities Bicycle Cross [place] Running Hip Abduction/Adduction Sit Kicks Equipment small [place] float Duration 15 min PT-OP-T Assessment and Plan Start: 04/13/18 10:13 Freq: Status: Active Protocol: Document 06/14/18 12:30 CLB (Rec: 06/14/18 15:28 CLB [email or web address]) Physical Therapy Assessment Goals Five Impairment activity intolerance Short Term Goal (STG) Patient able to tolerate 30-45 min aquatic exercise program without excess fatigue or pain STG Duration 6 wks Sexologist Goal (LTG) Patient to be safe and independent in a 45 min aquatic exercise program for long-term pain managment and fitness Four Impairment ROM Sexologist Goal (LTG) Improve ROM in neck, shoulders , spine, and hips to WFL with minimal to no pain including ability to reach overhead and behind his back so he can be independent with bathing and dressing. Three Impairment activity tolerance/functional mobility: Oswestry Disability Index 76% Short Term Goal (STG) Decrease Oswestry score to 60% STG Duration 6 wks Sexologist Goal (LTG) Decrease Oswestry score to no greater than 40% LTG Duration 3 months Two Impairment activity tolerance: neck disability index 68% Short Term Goal (STG) Decrease neck disability index score to 55% STG Duration 6 wks Sexologist Goal (LTG) Decrease neck disability index score to no greater than 40% LTG Duration 3 months One Impairment Pain 8-9/10 Short Term Goal (STG) Decrease pain to no greater than 7/10 STG Duration 6 wks Sexologist Goal (LTG) Decrease pain to no greater than 4/10 LTG Duration 3 months Assessment Summary Assessment Pt arrived 30 minutes early to do water walking. Pt continues to have numbness when using small [place] float but respectfully refuses any other floating device.Pt increasing activity tolerance. Physical Therapy Plan Frequency and Duration Frequency of Treatment 2x/Week Duration of Treatment 3 months Plan of Care Start Date 04/09/18 Plan of Care End Date 07/09/18 Next Visit Focus/Plan Next Visit Plan Aquatic PT for pain managment, strengthening, core stabilization, flexibility.
--- NOTE | 2018-06-18 17:24 | PT.OTN ---
Current Diagnoses Spinal stenosis, cervical region (06/18/18) Physical Therapy Treatment Note PT-OP-A Visit Information Start: 04/09/18 09:02 Freq: Status: Active Protocol: Document 06/18/18 17:19 [facility] (Rec: 06/18/18 17:24 [facility] [id number]) Out-Patient Physical Therapy Visit Information Visit Information Visit Type Treatment Note Visit Start Time 12:30 Visit Stop Time 13:10 Total Visit Minutes 40 Visit Number 10 Number of LEG ASSEMBLER Visits 0 PT-OP-B Current Condition Start: 04/09/18 09:02 Freq: Status: Active Protocol: Document 04/09/18 09:05 [facility] (Rec: 04/09/18 09:23 [facility] [id number]) Current Condition History of Current Condition Onset Date 30-40 yrs History of Current Condition Patient c/o constant pain, . Pinched nerves in neck causing pain into UEs, injection 03/29/18; pain better in right, but now has constant pain left. LBP L2 and L4 pinched nerves; left LE with burning and throbbing pain along entire outside of LE; injection planned for 04/19. 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 Unable to drive more than 15 minutes unless has heated seats then can last 1- 1 1/2 hrs. 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 States after doing any physical activities is often down for several days due to pain. and [id number] and daughter assist patient. Biggest goal is pain relief. PMH includes stage 4 kidney failure, CHF, HTN, diabetic polyneuropathy, DM. Patient has been referred for aquatic therapy Prior Treatments and Tests chiropractor, massage therapy, accupunture, shots, H-wave. Prior aquatic therapy at [place] helpful. Shallow water up to neck level is preference. No pain pills since 2006. Treatment Goals Patient/Caregiver Goals Pain relief, improved tolerance to activity Prior Functional Status Baseline Function- ADL's Independent Baseline Function- Mobility Independent Baseline Function- Gait no device Baseline Function- Work/School able to work, do yardwork Current Functional Impairments (Reported) Functional Limitations- ADL's All activity causes pain; assist of for dressing, bathing Functional Limitations- Mobility/Gait Requires 4WW for any community distances Functional Limitations- Work/School unable Personal Factors Other Personal Factors That May Effect depression Therapy/Recovery PT-OP-C Subjective Start: 04/09/18 09:02 Freq: Status: Active Protocol: Document 06/18/18 17:19 [facility] (Rec: 06/18/18 17:24 [facility] [id number]) OP-PT Subjective Patient Comments Patient Comments Continues to benefit from aquatic PT, feeling better after sessions. PT-OP-E Functional Tests Start: 04/09/18 09:02 Freq: Status: Active Protocol: Document 04/09/18 09:05 [facility] (Rec: 04/13/18 10:13 [facility] [id number]) Functional Tests Apley's Scratch Test Action 1: The subject is instructed to touch the opposite shoulder with his/her hand. This motion checks Glenohumeral adduction, internal rotation , horizontal adduction and scapular protraction Action 2: The subject is instructed to place his/her arm overhead and reach behind the neck to touch his/her upper back. This motion checks Glenohumeral abduction, external rotation and scapular upward rotation and elevation. Action 3: The subject puts his/her hand on the lower back and reaches upward as far as possible. This motion checks glenohumeral adduction, internal rotation and scapular retraction with downward rotation Action 1- Left front of chest Action 1- Right front of chest Action 2- Left side of neck Action 2- Right side of neck Action 3- Left side of hip Action 3- Right side of hip PT-OP-F Manual Assessment Start: 04/09/18 09:02 Freq: Status: Active Protocol: Document 04/09/18 09:05 [facility] (Rec: 04/13/18 10:13 [facility] [id number]) Manual Assessments Soft Tissue Assessment Soft Tissue Mobility Assessment difficult to assess due to high pain level PT-OP-G Mobility & Gait Start: 04/09/18 09:02 Freq: Status: Active Protocol: Document 04/09/18 09:05 [facility] (Rec: 04/13/18 10:13 [facility] [id number]) OP Mobility Evaluation Bed Mobility Rolling independent but painful Supine to and from Sit independent but painful Functional Movements Squats painful Other Functional Movements Unable to reach overhead or behind his back due to pain OP Gait Assessment Gait Gait Assistance Required: Independent Gait Deviations General Gait Pattern Wide Based Gait Comments Gait Comments slow, guarded, antalgic PT-OP-H Neuro Start: 04/09/18 09:02 Freq: Status: Active Protocol: Document 04/09/18 05:14 [facility] (Rec: 04/13/18 10:24 [facility] [id number]) Sensation Evaluation Gross Sensation Gross Sensation Left UE Impaired Right UE Impaired Left LE Impaired Right LE Impaired PT-OP-K Range of Motion Start: 04/09/18 09:02 Freq: Status: Active Protocol: Document 04/09/18 09:05 [facility] (Rec: 04/13/18 10:13 [facility] [id number]) Cervical Spine Range of Motion Cervical Spine Active Testing Position Sitting ROM Limitations Pain Comments moderately limited all motions due to pain Lumbar Spine Range of Motion Lumbar Spine Active ROM Limitations Pain Comments Moderately limited all motions due to pain Shoulder Goniometric Range of Motion Shoulder Measured in Degrees Left Shoulder ROM WFL No Right Shoulder ROM WFL No Shoulder ROM Limitations Shoulder ROM Limitations Muscle Weakness Pain Comments Unable to reach overhead or behind his back due to pain bilaterally Hip Goniometric Range of Motion Hip ROM Limitations Hip ROM Limitations Pain Comments moderately decreased due to pain bilaterally Knee Goniometric Range of Motion Knee ROM Limitations Comments WNL fuad Ankle and Foot Goniometric Range of Motion Ankle and Foot ROM Limitations Comments WNL fuad PT-OP-S Aquatic Treatment Start: 04/13/18 10:13 Freq: Status: Active Protocol: Document 06/18/18 17:19 [facility] (Rec: 06/18/18 17:24 [facility] [id number]) Aquatics Treatment Pool Entry/Exit Pool Entry/Exit Method Stairs Assistance Standby Assistance Lower Extremity Exercises squats Details mini Body Position Standing Water Level Chest Level Reps/Duration 10 Comments mini squates with cues for posture 1 Details Hip flexion/ext, Hip AB, circles Body Position Standing Water Level Chest Level Equipment Resistance Fins(small green) Reps/Duration 12 reps Comments Cues to keep ROM within tolerance. Lower Extremity Stretches 1 Details Hamstring Body Position Standing Comments active Upper Extremity Exercises 1 Details Shoulder Hor.AB/AD, flexion/ ext Body Position Standing Water Level Chest Level Reps/Duration x 10 Spinal Exercises 3 Details traction Water Level [place] Reps/Duration during rest breaks in deep water Comments #5 ankle [place] Activities [place] Activities Bicycle [place] Running Hip Abduction/Adduction Sit Kicks Equipment small [place] float Duration 15 min Comments Included 5 sets of 30 on/ 60 off intervals of running PT-OP-T Assessment and Plan Start: 04/13/18 10:13 Freq: Status: Active Protocol: Document 06/18/18 17:19 [facility] (Rec: 06/18/18 17:24 [facility] [id number]) Physical Therapy Assessment Goals Five Impairment activity intolerance Short Term Goal (STG) Patient able to tolerate 30-45 min aquatic exercise program without excess fatigue or pain (good goal progress) STG Duration 6 wks Civil Attorney Goal (LTG) Patient to be safe and independent in a 45 min aquatic exercise program for long-term pain managment and fitness LTG Duration 3 months Four Impairment ROM STG Duration 6 wks Civil Attorney Goal (LTG) Improve ROM in neck, shoulders , spine, and hips to WFL with minimal to no pain including ability to reach overhead and behind his back so he can be independent with bathing and dressing. (good goal progress) LTG Duration 3 months Three Impairment activity tolerance/functional mobility: Oswestry Disability Index 76% Short Term Goal (STG) Decrease Oswestry score to 60% (goal progress) STG Duration 6 wks Fdc Goal (LTG) Decrease Oswestry score to no greater than 40% (goal progress) LTG Duration 3 months Two Impairment activity tolerance: neck disability index 68% Short Term Goal (STG) Decrease neck disability index score to 55% (goal progress) STG Duration 6 wks Civil Attorney Goal (LTG) Decrease neck disability index score to no greater than 40% (goal progress) LTG Duration 3 months One Impairment Pain 8-9/10 Short Term Goal (STG) Decrease pain to no greater than 7/10 (goal progress) STG Duration 6 wks Fdc Goal (LTG) Decrease pain to no greater than 4/10 (goal progress) LTG Duration 3 months Assessment Summary Assessment Patient fatigued with intervals. Reports having decreased pain after PT, feeling stronger. Physical Therapy Plan Frequency and Duration Frequency of Treatment 2x/Week Duration of Treatment 3 months Plan of Care Start Date 04/09/18 Plan of Care End Date 07/09/18 Next Visit Focus/Plan Next Note Type Treatment Note Next Visit Plan Progression of aquatic PT for pain management, strengthening , core stabilization, flexibility.
--- NOTE | 2018-06-21 15:03 | PT.OTN ---
Current Diagnoses Spinal stenosis, cervical region (06/21/18) Physical Therapy Treatment Note PT-OP-A Visit Information Start: 04/09/18 09:02 Freq: Status: Active Protocol: Document 06/21/18 12:30 [facility] (Rec: 06/21/18 15:03 [facility] [id number]) Out-Patient Physical Therapy Visit Information Visit Information Visit Type Treatment Note Visit Start Time 12:30 Visit Stop Time 13:00 Total Visit Minutes 30 Visit Number 11 Number of GARDE MANAGER Visits 1 PT-OP-B Current Condition Start: 04/09/18 09:02 Freq: Status: Active Protocol: Document 04/09/18 09:05 [facility] (Rec: 04/09/18 09:23 [facility] [id number]) Current Condition History of Current Condition Onset Date 30-40 yrs History of Current Condition Patient c/o constant pain, . Pinched nerves in neck causing pain into UEs, injection 03/29/18; pain better in right, but now has constant pain left. LBP L2 and L4 pinched nerves; left LE with burning and throbbing pain along entire outside of LE; injection planned for 04/19. 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 Unable to drive more than 15 minutes unless has heated seats then can last 1- 1 1/2 hrs. 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 States after doing any physical activities is often down for several days due to pain. and [id number] and daughter assist patient. Biggest goal is pain relief. PMH includes stage 4 kidney failure, CHF, HTN, diabetic polyneuropathy, DM. Patient has been referred for aquatic therapy Prior Treatments and Tests chiropractor, massage therapy, accupunture, shots, H-wave. Prior aquatic therapy at [place] helpful. Shallow water up to neck level is preference. No pain pills since 2006. Treatment Goals Patient/Caregiver Goals Pain relief, improved tolerance to activity Prior Functional Status Baseline Function- ADL's Independent Baseline Function- Mobility Independent Baseline Function- Gait no device Baseline Function- Work/School able to work, do yardwork Current Functional Impairments (Reported) Functional Limitations- ADL's All activity causes pain; assist of for dressing, bathing Functional Limitations- Mobility/Gait Requires 4WW for any community distances Functional Limitations- Work/School unable Personal Factors Other Personal Factors That May Effect depression Therapy/Recovery PT-OP-C Subjective Start: 04/09/18 09:02 Freq: Status: Active Protocol: Document 06/21/18 12:30 [facility] (Rec: 06/21/18 15:03 [facility] [id number]) OP-PT Subjective Patient Comments Patient Comments Pt c/o left elbow pain. Pt stated he is having an MRI tomorrow. PT-OP-E Functional Tests Start: 04/09/18 09:02 Freq: Status: Active Protocol: Document 04/09/18 09:05 [facility] (Rec: 04/13/18 10:13 [facility] [id number]) Functional Tests Apley's Scratch Test Action 1: The subject is instructed to touch the opposite shoulder with his/her hand. This motion checks Glenohumeral adduction, internal rotation , horizontal adduction and scapular protraction Action 2: The subject is instructed to place his/her arm overhead and reach behind the neck to touch his/her upper back. This motion checks Glenohumeral abduction, external rotation and scapular upward rotation and elevation. Action 3: The subject puts his/her hand on the lower back and reaches upward as far as possible. This motion checks glenohumeral adduction, internal rotation and scapular retraction with downward rotation Action 1- Left front of chest Action 1- Right front of chest Action 2- Left side of neck Action 2- Right side of neck Action 3- Left side of hip Action 3- Right side of hip PT-OP-F Manual Assessment Start: 04/09/18 09:02 Freq: Status: Active Protocol: Document 04/09/18 09:05 [facility] (Rec: 04/13/18 10:13 [facility] [id number]) Manual Assessments Soft Tissue Assessment Soft Tissue Mobility Assessment difficult to assess due to high pain level PT-OP-G Mobility & Gait Start: 04/09/18 09:02 Freq: Status: Active Protocol: Document 04/09/18 09:05 [facility] (Rec: 04/13/18 10:13 [facility] [id number]) OP Mobility Evaluation Bed Mobility Rolling independent but painful Supine to and from Sit independent but painful Functional Movements Squats painful Other Functional Movements Unable to reach overhead or behind his back due to pain OP Gait Assessment Gait Gait Assistance Required: Independent Gait Deviations General Gait Pattern Wide Based Gait Comments Gait Comments slow, guarded, antalgic PT-OP-H Neuro Start: 04/09/18 09:02 Freq: Status: Active Protocol: Document 04/09/18 05:14 [facility] (Rec: 04/13/18 10:24 [facility] [id number]) Sensation Evaluation Gross Sensation Gross Sensation Left UE Impaired Right UE Impaired Left LE Impaired Right LE Impaired PT-OP-K Range of Motion Start: 04/09/18 09:02 Freq: Status: Active Protocol: Document 04/09/18 09:05 [facility] (Rec: 04/13/18 10:13 [facility] [id number]) Cervical Spine Range of Motion Cervical Spine Active Testing Position Sitting ROM Limitations Pain Comments moderately limited all motions due to pain Lumbar Spine Range of Motion Lumbar Spine Active ROM Limitations Pain Comments Moderately limited all motions due to pain Shoulder Goniometric Range of Motion Shoulder Measured in Degrees Left Shoulder ROM WFL No Right Shoulder ROM WFL No Shoulder ROM Limitations Shoulder ROM Limitations Muscle Weakness Pain Comments Unable to reach overhead or behind his back due to pain bilaterally Hip Goniometric Range of Motion Hip ROM Limitations Hip ROM Limitations Pain Comments moderately decreased due to pain bilaterally Knee Goniometric Range of Motion Knee ROM Limitations Comments WNL fuad Ankle and Foot Goniometric Range of Motion Ankle and Foot ROM Limitations Comments WNL fuad PT-OP-S Aquatic Treatment Start: 04/13/18 10:13 Freq: Status: Active Protocol: Document 06/21/18 12:30 [facility] (Rec: 06/21/18 15:03 [facility] [id number]) Aquatics Treatment Pool Entry/Exit Pool Entry/Exit Method Stairs Assistance Independent Lower Extremity Exercises squats Details mini Body Position Standing Water Level Chest Level Reps/Duration 10 Comments mini squates with cues for posture 1 Details Hip flexion/ext, Hip AB, circles Body Position Standing Water Level Chest Level Equipment Resistance Fins(small green) Reps/Duration 12 reps Comments Cues to keep ROM within tolerance. Lower Extremity Stretches 1 Details Hamstring Body Position Standing Comments active Upper Extremity Exercises 1 Details Shoulder Hor.AB/AD, flexion/ ext Body Position Standing Water Level Chest Level Reps/Duration x 10 [place] Activities [place] Activities Running Hip Abduction/Adduction Equipment small [place] float Comments Included 5 sets of 30 on/ 60 off intervals of running PT-OP-T Assessment and Plan Start: 04/13/18 10:13 Freq: Status: Active Protocol: Document 06/21/18 12:30 [facility] (Rec: 06/21/18 15:03 [facility] [id number]) Physical Therapy Assessment Goals Five Impairment activity intolerance Short Term Goal (STG) Patient able to tolerate 30-45 min aquatic exercise program without excess fatigue or pain (good goal progress) STG Duration 6 wks Stock Digger Goal (LTG) Patient to be safe and independent in a 45 min aquatic exercise program for long-term pain managment and fitness LTG Duration 3 months Four Impairment ROM STG Duration 6 wks Stock Digger Goal (LTG) Improve ROM in neck, shoulders , spine, and hips to WFL with minimal to no pain including ability to reach overhead and behind his back so he can be independent with bathing and dressing. (good goal progress) LTG Duration 3 months Three Impairment activity tolerance/functional mobility: Oswestry Disability Index 76% Short Term Goal (STG) Decrease Oswestry score to 60% (goal progress) STG Duration 6 wks [facility] Goal (LTG) Decrease Oswestry score to no greater than 40% (goal progress) LTG Duration 3 months Two Impairment activity tolerance: neck disability index 68% Short Term Goal (STG) Decrease neck disability index score to 55% (goal progress) STG Duration 6 wks [facility] Goal (LTG) Decrease neck disability index score to no greater than 40% (goal progress) LTG Duration 3 months One Impairment Pain 8-9/10 Short Term Goal (STG) Decrease pain to no greater than 7/10 (goal progress) STG Duration 6 wks [facility] Goal (LTG) Decrease pain to no greater than 4/10 (goal progress) LTG Duration 3 months Assessment Summary Assessment Pt arrived early for therapy and had walked laps before therapy session. Pt fatigued with intervals. Physical Therapy Plan Frequency and Duration Frequency of Treatment 2x/Week Duration of Treatment 3 months Plan of Care Start Date 04/09/18 Plan of Care End Date 07/09/18 Next Visit Focus/Plan Next Note Type Treatment Note Next Visit Plan Progression of aquatic PT for pain management, strengthening , core stabilization, flexibility.
--- NOTE | 2018-06-25 17:29 | PT.OTN ---
Current Diagnoses Spinal stenosis, cervical region (06/25/18) Physical Therapy Treatment Note PT-OP-A Visit Information Start: 04/09/18 09:02 Freq: Status: Active Protocol: Document 06/25/18 12:20 [facility] (Rec: 06/25/18 17:28 [facility] [id number]) Out-Patient Physical Therapy Visit Information Visit Information Visit Type Treatment Note Visit Start Time 12:20 Visit Stop Time 13:00 Total Visit Minutes 40 Visit Number 12 Number of SAND WHEELER Visits 1 Evaluation Information Evaluation Date 04/09/18 PT-OP-B Current Condition Start: 04/09/18 09:02 Freq: Status: Active Protocol: Document 04/09/18 09:05 [facility] (Rec: 04/09/18 09:23 [facility] [id number]) Current Condition History of Current Condition Onset Date 30-40 yrs History of Current Condition Patient c/o constant pain, . Pinched nerves in neck causing pain into UEs, injection 03/29/18; pain better in right, but now has constant pain left. LBP L2 and L4 pinched nerves; left LE with burning and throbbing pain along entire outside of LE; injection planned for 04/19. 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 Unable to drive more than 15 minutes unless has heated seats then can last 1- 1 1/2 hrs. 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 States after doing any physical activities is often down for several days due to pain. and [id number] and daughter assist patient. Biggest goal is pain relief. PMH includes stage 4 kidney failure, CHF, HTN, diabetic polyneuropathy, DM. Patient has been referred for aquatic therapy Prior Treatments and Tests chiropractor, massage therapy, accupunture, shots, H-wave. Prior aquatic therapy at [place] helpful. Shallow water up to neck level is preference. No pain pills since 2006. Treatment Goals Patient/Caregiver Goals Pain relief, improved tolerance to activity Prior Functional Status Baseline Function- ADL's Independent Baseline Function- Mobility Independent Baseline Function- Gait no device Baseline Function- Work/School able to work, do yardwork Current Functional Impairments (Reported) Functional Limitations- ADL's All activity causes pain; assist of for dressing, bathing Functional Limitations- Mobility/Gait Requires 4WW for any community distances Functional Limitations- Work/School unable Personal Factors Other Personal Factors That May Effect depression Therapy/Recovery PT-OP-C Subjective Start: 04/09/18 09:02 Freq: Status: Active Protocol: Document 06/25/18 12:20 [facility] (Rec: 06/25/18 17:28 [facility] [id number]) OP-PT Subjective Patient Comments Patient Comments No results from MRI yet. Fatigued, has been up since 2: 30 am to take Mother in law to physician in [place]. PT-OP-E Functional Tests Start: 04/09/18 09:02 Freq: Status: Active Protocol: Document 04/09/18 09:05 [facility] (Rec: 04/13/18 10:13 [facility] [id number]) Functional Tests Apley's Scratch Test Action 1: The subject is instructed to touch the opposite shoulder with his/her hand. This motion checks Glenohumeral adduction, internal rotation , horizontal adduction and scapular protraction Action 2: The subject is instructed to place his/her arm overhead and reach behind the neck to touch his/her upper back. This motion checks Glenohumeral abduction, external rotation and scapular upward rotation and elevation. Action 3: The subject puts his/her hand on the lower back and reaches upward as far as possible. This motion checks glenohumeral adduction, internal rotation and scapular retraction with downward rotation Action 1- Left front of chest Action 1- Right front of chest Action 2- Left side of neck Action 2- Right side of neck Action 3- Left side of hip Action 3- Right side of hip PT-OP-F Manual Assessment Start: 04/09/18 09:02 Freq: Status: Active Protocol: Document 04/09/18 09:05 [facility] (Rec: 04/13/18 10:13 [facility] [id number]) Manual Assessments Soft Tissue Assessment Soft Tissue Mobility Assessment difficult to assess due to high pain level PT-OP-G Mobility & Gait Start: 04/09/18 09:02 Freq: Status: Active Protocol: Document 04/09/18 09:05 [facility] (Rec: 04/13/18 10:13 [facility] [id number]) OP Mobility Evaluation Bed Mobility Rolling independent but painful Supine to and from Sit independent but painful Functional Movements Squats painful Other Functional Movements Unable to reach overhead or behind his back due to pain OP Gait Assessment Gait Gait Assistance Required: Independent Gait Deviations General Gait Pattern Wide Based Gait Comments Gait Comments slow, guarded, antalgic PT-OP-H Neuro Start: 04/09/18 09:02 Freq: Status: Active Protocol: Document 04/09/18 05:14 [facility] (Rec: 04/13/18 10:24 [facility] [id number]) Sensation Evaluation Gross Sensation Gross Sensation Left UE Impaired Right UE Impaired Left LE Impaired Right LE Impaired PT-OP-K Range of Motion Start: 04/09/18 09:02 Freq: Status: Active Protocol: Document 04/09/18 09:05 [facility] (Rec: 04/13/18 10:13 [facility] [id number]) Cervical Spine Range of Motion Cervical Spine Active Testing Position Sitting ROM Limitations Pain Comments moderately limited all motions due to pain Lumbar Spine Range of Motion Lumbar Spine Active ROM Limitations Pain Comments Moderately limited all motions due to pain Shoulder Goniometric Range of Motion Shoulder Measured in Degrees Left Shoulder ROM WFL No Right Shoulder ROM WFL No Shoulder ROM Limitations Shoulder ROM Limitations Muscle Weakness Pain Comments Unable to reach overhead or behind his back due to pain bilaterally Hip Goniometric Range of Motion Hip ROM Limitations Hip ROM Limitations Pain Comments moderately decreased due to pain bilaterally Knee Goniometric Range of Motion Knee ROM Limitations Comments WNL fuad Ankle and Foot Goniometric Range of Motion Ankle and Foot ROM Limitations Comments WNL fuad PT-OP-S Aquatic Treatment Start: 04/13/18 10:13 Freq: Status: Active Protocol: Document 06/25/18 12:20 [facility] (Rec: 06/25/18 17:28 [facility] [id number]) Aquatics Treatment Spinal Exercises 3 Details traction Water Level [place] Reps/Duration 10 min Comments #5 ea ankle 2 Details shoot through Body Position Standing Water Level [place] Equipment [place] Float [place] Activities [place] Activities Bicycle Cross Country Running Hip Abduction/Adduction Sit Kicks Equipment small [place] float Comments Included 5 sets of 30 on/ 60 off intervals of running PT-OP-T Assessment and Plan Start: 04/13/18 10:13 Freq: Status: Active Protocol: Document 06/25/18 12:20 [facility] (Rec: 06/25/18 17:28 [facility] [id number]) Physical Therapy Assessment Goals Five Impairment activity intolerance Short Term Goal (STG) Patient able to tolerate 30-45 min aquatic exercise program without excess fatigue or pain (good goal progress) STG Duration 6 wks Usp Goal (LTG) Patient to be safe and independent in a 45 min aquatic exercise program for long-term pain managment and fitness LTG Duration 3 months Four Impairment ROM STG Duration 6 wks Customer Resource Specialist Goal (LTG) Improve ROM in neck, shoulders , spine, and hips to WFL with minimal to no pain including ability to reach overhead and behind his back so he can be independent with bathing and dressing. (good goal progress) LTG Duration 3 months Three Impairment activity tolerance/functional mobility: Oswestry Disability Index 76% Short Term Goal (STG) Decrease Oswestry score to 60% (goal progress) STG Duration 6 wks Customer Resource Specialist Goal (LTG) Decrease Oswestry score to no greater than 40% (goal progress) LTG Duration 3 months Two Impairment activity tolerance: neck disability index 68% Short Term Goal (STG) Decrease neck disability index score to 55% (goal progress) STG Duration 6 wks Usp Goal (LTG) Decrease neck disability index score to no greater than 40% (goal progress) LTG Duration 3 months One Impairment Pain 8-9/10 Short Term Goal (STG) Decrease pain to no greater than 7/10 (goal progress) STG Duration 6 wks Customer Resource Specialist Goal (LTG) Decrease pain to no greater than 4/10 (goal progress) LTG Duration 3 months Assessment Summary Assessment Patient fatigued, decreased exercise tolerance today. Physical Therapy Plan Frequency and Duration Frequency of Treatment 2x/Week Duration of Treatment 3 months Plan of Care Start Date 04/09/18 Plan of Care End Date 07/09/18 Next Visit Focus/Plan Next Note Type Treatment Note Next Visit Plan Increased emphasis on shallow water ex, neck and shoulder pain, shallow water stabilization ex.
--- NOTE | 2018-06-28 15:03 | PT.OTN ---
Current Diagnoses Spinal stenosis, cervical region (06/28/18) Physical Therapy Treatment Note PT-OP-A Visit Information Start: 04/09/18 09:02 Freq: Status: Active Protocol: Document 06/28/18 12:15 [facility] (Rec: 06/28/18 15:02 [facility] [id number]) Out-Patient Physical Therapy Visit Information Visit Information Visit Type Treatment Note Visit Start Time 12:15 Visit Stop Time 13:00 Total Visit Minutes 45 Visit Number 13 Number of PEGGER Visits 1 PT-OP-B Current Condition Start: 04/09/18 09:02 Freq: Status: Active Protocol: Document 04/09/18 09:05 [facility] (Rec: 04/09/18 09:23 [facility] [id number]) Current Condition History of Current Condition Onset Date 30-40 yrs History of Current Condition Patient c/o constant pain, . Pinched nerves in neck causing pain into UEs, injection 03/29/18; pain better in right, but now has constant pain left. LBP L2 and L4 pinched nerves; left LE with burning and throbbing pain along entire outside of LE; injection planned for 04/19. 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 Unable to drive more than 15 minutes unless has heated seats then can last 1- 1 1/2 hrs. 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 States after doing any physical activities is often down for several days due to pain. and [id number] and daughter assist patient. Biggest goal is pain relief. PMH includes stage 4 kidney failure, CHF, HTN, diabetic polyneuropathy, DM. Patient has been referred for aquatic therapy Prior Treatments and Tests chiropractor, massage therapy, accupunture, shots, H-wave. Prior aquatic therapy at [place] helpful. Shallow water up to neck level is preference. No pain pills since 2006. Treatment Goals Patient/Caregiver Goals Pain relief, improved tolerance to activity Prior Functional Status Baseline Function- ADL's Independent Baseline Function- Mobility Independent Baseline Function- Gait no device Baseline Function- Work/School able to work, do yardwork Current Functional Impairments (Reported) Functional Limitations- ADL's All activity causes pain; assist of for dressing, bathing Functional Limitations- Mobility/Gait Requires 4WW for any community distances Functional Limitations- Work/School unable Personal Factors Other Personal Factors That May Effect depression Therapy/Recovery PT-OP-C Subjective Start: 04/09/18 09:02 Freq: Status: Active Protocol: Document 06/28/18 12:15 [facility] (Rec: 06/28/18 15:02 [facility] [id number]) OP-PT Subjective Patient Comments Patient Comments Pt stated he continues to wait for MRI results. Pt stated he is tired today because he was awake a lot last night with neck and shoulder pain. PT-OP-E Functional Tests Start: 04/09/18 09:02 Freq: Status: Active Protocol: Document 04/09/18 09:05 [facility] (Rec: 04/13/18 10:13 [facility] [id number]) Functional Tests Apley's Scratch Test Action 1: The subject is instructed to touch the opposite shoulder with his/her hand. This motion checks Glenohumeral adduction, internal rotation , horizontal adduction and scapular protraction Action 2: The subject is instructed to place his/her arm overhead and reach behind the neck to touch his/her upper back. This motion checks Glenohumeral abduction, external rotation and scapular upward rotation and elevation. Action 3: The subject puts his/her hand on the lower back and reaches upward as far as possible. This motion checks glenohumeral adduction, internal rotation and scapular retraction with downward rotation Action 1- Left front of chest Action 1- Right front of chest Action 2- Left side of neck Action 2- Right side of neck Action 3- Left side of hip Action 3- Right side of hip PT-OP-F Manual Assessment Start: 04/09/18 09:02 Freq: Status: Active Protocol: Document 04/09/18 09:05 [facility] (Rec: 04/13/18 10:13 [facility] [id number]) Manual Assessments Soft Tissue Assessment Soft Tissue Mobility Assessment difficult to assess due to high pain level PT-OP-G Mobility & Gait Start: 04/09/18 09:02 Freq: Status: Active Protocol: Document 04/09/18 09:05 [facility] (Rec: 04/13/18 10:13 [facility] [id number]) OP Mobility Evaluation Bed Mobility Rolling independent but painful Supine to and from Sit independent but painful Functional Movements Squats painful Other Functional Movements Unable to reach overhead or behind his back due to pain OP Gait Assessment Gait Gait Assistance Required: Independent Gait Deviations General Gait Pattern Wide Based Gait Comments Gait Comments slow, guarded, antalgic PT-OP-H Neuro Start: 04/09/18 09:02 Freq: Status: Active Protocol: Document 04/09/18 05:14 [facility] (Rec: 04/13/18 10:24 [facility] [id number]) Sensation Evaluation Gross Sensation Gross Sensation Left UE Impaired Right UE Impaired Left LE Impaired Right LE Impaired PT-OP-K Range of Motion Start: 04/09/18 09:02 Freq: Status: Active Protocol: Document 04/09/18 09:05 [facility] (Rec: 04/13/18 10:13 [facility] [id number]) Cervical Spine Range of Motion Cervical Spine Active Testing Position Sitting ROM Limitations Pain Comments moderately limited all motions due to pain Lumbar Spine Range of Motion Lumbar Spine Active ROM Limitations Pain Comments Moderately limited all motions due to pain Shoulder Goniometric Range of Motion Shoulder Measured in Degrees Left Shoulder ROM WFL No Right Shoulder ROM WFL No Shoulder ROM Limitations Shoulder ROM Limitations Muscle Weakness Pain Comments Unable to reach overhead or behind his back due to pain bilaterally Hip Goniometric Range of Motion Hip ROM Limitations Hip ROM Limitations Pain Comments moderately decreased due to pain bilaterally Knee Goniometric Range of Motion Knee ROM Limitations Comments WNL fuad Ankle and Foot Goniometric Range of Motion Ankle and Foot ROM Limitations Comments WNL fuad PT-OP-S Aquatic Treatment Start: 04/13/18 10:13 Freq: Status: Active Protocol: Document 06/28/18 12:15 [facility] (Rec: 06/28/18 15:02 [facility] [id number]) Aquatics Treatment Pool Entry/Exit Pool Entry/Exit Method Stairs Assistance Independent Water Walking Marching Water Level Chest Level Walking Equipment Ankle Floats Level of Assistance Standby Assistance Sideways Water Level Chest Level Walking Equipment Ankle Floats Level of Assistance Standby Assistance Comments Horizontal ab/add of arms Forwards Water Level Chest Level Walking Equipment Ankle Floats Level of Assistance Standby Assistance Lower Extremity Exercises squats Details mini Body Position Standing Water Level Chest Level Reps/Duration 10 Comments mini squates with cues for posture 1 Details Hip flexion/ext, Hip AB, circles Body Position Standing Water Level Chest Level Equipment Resistance Fins(small green) Reps/Duration 12 reps Comments Cues to keep ROM within tolerance. Lower Extremity Stretches 1 Details Hamstring Body Position Standing Comments active Upper Extremity Exercises 1 Details Shoulder Hor.AB/AD, flexion/ ext Body Position Standing Water Level Chest Level Reps/Duration x 10 Spinal Exercises 3 Details traction Water Level [place] Reps/Duration 10 min Comments #5 ea ankle [place] Activities [place] Activities Bicycle Cross Country Running Hip Abduction/Adduction Sit Kicks Equipment small [place] float Comments Included 5 sets of 30 on/ 60 off intervals of running PT-OP-T Assessment and Plan Start: 04/13/18 10:13 Freq: Status: Active Protocol: Document 06/28/18 12:15 [facility] (Rec: 06/28/18 15:02 [facility] [id number]) Physical Therapy Assessment Goals Five Impairment activity intolerance Short Term Goal (STG) Patient able to tolerate 30-45 min aquatic exercise program without excess fatigue or pain (good goal progress) STG Duration 6 wks Usp Goal (LTG) Patient to be safe and independent in a 45 min aquatic exercise program for long-term pain managment and fitness LTG Duration 3 months Four Impairment ROM STG Duration 6 wks Usp Goal (LTG) Improve ROM in neck, shoulders , spine, and hips to WFL with minimal to no pain including ability to reach overhead and behind his back so he can be independent with bathing and dressing. (good goal progress) LTG Duration 3 months Three Impairment activity tolerance/functional mobility: Oswestry Disability Index 76% Short Term Goal (STG) Decrease Oswestry score to 60% (goal progress) STG Duration 6 wks Usp Goal (LTG) Decrease Oswestry score to no greater than 40% (goal progress) LTG Duration 3 months Two Impairment activity tolerance: neck disability index 68% Short Term Goal (STG) Decrease neck disability index score to 55% (goal progress) STG Duration 6 wks Usp Goal (LTG) Decrease neck disability index score to no greater than 40% (goal progress) LTG Duration 3 months One Impairment Pain 8-9/10 Short Term Goal (STG) Decrease pain to no greater than 7/10 (goal progress) STG Duration 6 wks Usp Goal (LTG) Decrease pain to no greater than 4/10 (goal progress) LTG Duration 3 months Assessment Summary Assessment Patient fatigued, decreased exercise tolerance today. Physical Therapy Plan Frequency and Duration Frequency of Treatment 2x/Week Duration of Treatment 3 months Plan of Care Start Date 04/09/18 Plan of Care End Date 07/09/18 Next Visit Focus/Plan Next Note Type Treatment Note Next Visit Plan Increased emphasis on shallow water ex, neck and shoulder pain, shallow water stabilization ex.
--- NOTE | 2018-07-05 14:49 | PT.OTN ---
Current Diagnoses Spinal stenosis, cervical region (06/28/18) Physical Therapy Treatment Note PT-OP-A Visit Information Start: 04/09/18 09:02 Freq: Status: Active Protocol: Document 07/05/18 12:30 CLB (Rec: 07/05/18 14:49 CLB [id number]) Out-Patient Physical Therapy Visit Information Visit Information Visit Type Treatment Note Visit Start Time 12:30 Visit Stop Time 13:00 Total Visit Minutes 30 Visit Number 14 Number of PROFESSIONAL NURSE Visits 1 PT-OP-B Current Condition Start: 04/09/18 09:02 Freq: Status: Active Protocol: Document 04/09/18 09:05 SAK (Rec: 04/09/18 09:23 SAK [id number]) Current Condition History of Current Condition Onset Date 30-40 yrs History of Current Condition Patient c/o constant pain, . Pinched nerves in neck causing pain into UEs, injection 03/29/18; pain better in right, but now has constant pain left. LBP L2 and L4 pinched nerves; left LE with burning and throbbing pain along entire outside of LE; injection planned for 04/19. 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 Unable to drive more than 15 minutes unless has heated seats then can last 1- 1 1/2 hrs. 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 States after doing any physical activities is often down for several days due to pain. and [id number] and daughter assist patient. Biggest goal is pain relief. PMH includes stage 4 kidney failure, CHF, HTN, diabetic polyneuropathy, DM. Patient has been referred for aquatic therapy Prior Treatments and Tests chiropractor, massage therapy, accupunture, shots, H-wave. Prior aquatic therapy at [place] helpful. Shallow water up to neck level is preference. No pain pills since 2006. Treatment Goals Patient/Caregiver Goals Pain relief, improved tolerance to activity Prior Functional Status Baseline Function- ADL's Independent Baseline Function- Mobility Independent Baseline Function- Gait no device Baseline Function- Work/School able to work, do yardwork Current Functional Impairments (Reported) Functional Limitations- ADL's All activity causes pain; assist of for dressing, bathing Functional Limitations- Mobility/Gait Requires 4WW for any community distances Functional Limitations- Work/School unable Personal Factors Other Personal Factors That May Effect depression Therapy/Recovery PT-OP-C Subjective Start: 04/09/18 09:02 Freq: Status: Active Protocol: Document 07/05/18 12:30 CLB (Rec: 07/05/18 14:49 CLB [id number]) OP-PT Subjective Patient Comments Patient Comments Pt stated MRI showed pinched nerve at level T8-T9. Pt having increased back pain. PT-OP-E Functional Tests Start: 04/09/18 09:02 Freq: Status: Active Protocol: Document 04/09/18 09:05 SAK (Rec: 04/13/18 10:13 SAK [id number]) Functional Tests Apley's Scratch Test Action 1: The subject is instructed to touch the opposite shoulder with his/her hand. This motion checks Glenohumeral adduction, internal rotation , horizontal adduction and scapular protraction Action 2: The subject is instructed to place his/her arm overhead and reach behind the neck to touch his/her upper back. This motion checks Glenohumeral abduction, external rotation and scapular upward rotation and elevation. Action 3: The subject puts his/her hand on the lower back and reaches upward as far as possible. This motion checks glenohumeral adduction, internal rotation and scapular retraction with downward rotation Action 1- Left front of chest Action 1- Right front of chest Action 2- Left side of neck Action 2- Right side of neck Action 3- Left side of hip Action 3- Right side of hip PT-OP-F Manual Assessment Start: 04/09/18 09:02 Freq: Status: Active Protocol: Document 04/09/18 09:05 SAK (Rec: 04/13/18 10:13 SAK [id number]) Manual Assessments Soft Tissue Assessment Soft Tissue Mobility Assessment difficult to assess due to high pain level PT-OP-G Mobility & Gait Start: 04/09/18 09:02 Freq: Status: Active Protocol: Document 04/09/18 09:05 SAK (Rec: 04/13/18 10:13 SAK [id number]) OP Mobility Evaluation Bed Mobility Rolling independent but painful Supine to and from Sit independent but painful Functional Movements Squats painful Other Functional Movements Unable to reach overhead or behind his back due to pain OP Gait Assessment Gait Gait Assistance Required: Independent Gait Deviations General Gait Pattern Wide Based Gait Comments Gait Comments slow, guarded, antalgic PT-OP-H Neuro Start: 04/09/18 09:02 Freq: Status: Active Protocol: Document 04/09/18 05:14 SAK (Rec: 04/13/18 10:24 SAK [id number]) Sensation Evaluation Gross Sensation Gross Sensation Left UE Impaired Right UE Impaired Left LE Impaired Right LE Impaired PT-OP-K Range of Motion Start: 04/09/18 09:02 Freq: Status: Active Protocol: Document 04/09/18 09:05 SAK (Rec: 04/13/18 10:13 SAK [id number]) Cervical Spine Range of Motion Cervical Spine Active Testing Position Sitting ROM Limitations Pain Comments moderately limited all motions due to pain Lumbar Spine Range of Motion Lumbar Spine Active ROM Limitations Pain Comments Moderately limited all motions due to pain Shoulder Goniometric Range of Motion Shoulder Measured in Degrees Left Shoulder ROM WFL No Right Shoulder ROM WFL No Shoulder ROM Limitations Shoulder ROM Limitations Muscle Weakness Pain Comments Unable to reach overhead or behind his back due to pain bilaterally Hip Goniometric Range of Motion Hip ROM Limitations Hip ROM Limitations Pain Comments moderately decreased due to pain bilaterally Knee Goniometric Range of Motion Knee ROM Limitations Comments WNL fuad Ankle and Foot Goniometric Range of Motion Ankle and Foot ROM Limitations Comments WNL fuad PT-OP-S Aquatic Treatment Start: 04/13/18 10:13 Freq: Status: Active Protocol: Document 07/05/18 12:30 CLB (Rec: 07/05/18 14:49 CLB [id number]) Aquatics Treatment Pool Entry/Exit Pool Entry/Exit Method Stairs Assistance Independent Water Walking Marching Water Level Chest Level Walking Equipment Ankle Floats Level of Assistance Standby Assistance Sideways Water Level Chest Level Walking Equipment Ankle Floats Level of Assistance Standby Assistance Comments Horizontal ab/add of arms Forwards Water Level Chest Level Walking Equipment Ankle Floats Level of Assistance Standby Assistance Lower Extremity Exercises squats Details mini Body Position Standing Water Level Chest Level Reps/Duration 10 Comments mini squates with cues for posture Upper Extremity Exercises 1 Details Shoulder Hor.AB/AD, flexion/ ext Body Position Standing Water Level Chest Level Reps/Duration x 10 Comments cues for core stabilization [place] Activities [place] Activities Bicycle Cross Country Running Hip Abduction/Adduction Sit Kicks Other Activities Pt performed IND before tx session PT-OP-T Assessment and Plan Start: 04/13/18 10:13 Freq: Status: Active Protocol: Document 07/05/18 12:30 CLB (Rec: 07/05/18 14:49 CLB [id number]) Physical Therapy Assessment Goals Five Impairment activity intolerance Short Term Goal (STG) Patient able to tolerate 30-45 min aquatic exercise program without excess fatigue or pain (good goal progress) STG Duration 6 wks Clinical Services Consultant Goal (LTG) Patient to be safe and independent in a 45 min aquatic exercise program for long-term pain managment and fitness LTG Duration 3 months Four Impairment ROM STG Duration 6 wks Clinical Services Consultant Goal (LTG) Improve ROM in neck, shoulders , spine, and hips to WFL with minimal to no pain including ability to reach overhead and behind his back so he can be independent with bathing and dressing. (good goal progress) LTG Duration 3 months Three Impairment activity tolerance/functional mobility: Oswestry Disability Index 76% Short Term Goal (STG) Decrease Oswestry score to 60% (goal progress) STG Duration 6 wks Alf Goal (LTG) Decrease Oswestry score to no greater than 40% (goal progress) LTG Duration 3 months Two Impairment activity tolerance: neck disability index 68% Short Term Goal (STG) Decrease neck disability index score to 55% (goal progress) STG Duration 6 wks Alf Goal (LTG) Decrease neck disability index score to no greater than 40% (goal progress) LTG Duration 3 months One Impairment Pain 8-9/10 Short Term Goal (STG) Decrease pain to no greater than 7/10 (goal progress) STG Duration 6 wks Alf Goal (LTG) Decrease pain to no greater than 4/10 (goal progress) LTG Duration 3 months Assessment Summary Assessment Pt fatigued after 30 minute therapy session. Physical Therapy Plan Frequency and Duration Frequency of Treatment 2x/Week Duration of Treatment 3 months Plan of Care Start Date 04/09/18 Plan of Care End Date 07/09/18 Next Visit Focus/Plan Next Note Type Treatment Note Next Visit Plan Increased emphasis on shallow water ex, neck and shoulder pain, shallow water stabilization ex.
--- NOTE | 2018-07-12 16:44 | PT.OTN ---
Current Diagnoses Spinal stenosis, cervical region (07/12/18) Physical Therapy Treatment Note PT-OP-A Visit Information Start: 04/09/18 09:02 Freq: Status: Active Protocol: Document 07/09/18 16:31 [facility] (Rec: 07/12/18 16:42 [facility] [id number]) Out-Patient Physical Therapy Visit Information Visit Information Visit Type Re-Evaluation Visit Start Time 11:45 Visit Stop Time 12:15 Total Visit Minutes 45 Visit Number 15 Number of ENVIRONMENTAL AIDE Visits 0 PT-OP-B Current Condition Start: 04/09/18 09:02 Freq: Status: Active Protocol: Document 04/09/18 09:05 [facility] (Rec: 04/09/18 09:23 [facility] [id number]) Current Condition History of Current Condition Onset Date 30-40 yrs History of Current Condition Patient c/o constant pain, . Pinched nerves in neck causing pain into UEs, injection 03/29/18; pain better in right, but now has constant pain left. LBP L2 and L4 pinched nerves; left LE with burning and throbbing pain along entire outside of LE; injection planned for 04/19. 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 Unable to drive more than 15 minutes unless has heated seats then can last 1- 1 1/2 hrs. 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 States after doing any physical activities is often down for several days due to pain. and [id number] and daughter assist patient. Biggest goal is pain relief. PMH includes stage 4 kidney failure, CHF, HTN, diabetic polyneuropathy, DM. Patient has been referred for aquatic therapy Prior Treatments and Tests chiropractor, massage therapy, accupunture, shots, H-wave. Prior aquatic therapy at [place] helpful. Shallow water up to neck level is preference. No pain pills since 2006. Treatment Goals Patient/Caregiver Goals Pain relief, improved tolerance to activity Prior Functional Status Baseline Function- ADL's Independent Baseline Function- Mobility Independent Baseline Function- Gait no device Baseline Function- Work/School able to work, do yardwork Current Functional Impairments (Reported) Functional Limitations- ADL's All activity causes pain; assist of for dressing, bathing Functional Limitations- Mobility/Gait Requires 4WW for any community distances Functional Limitations- Work/School unable Personal Factors Other Personal Factors That May Effect depression Therapy/Recovery PT-OP-C Subjective Start: 04/09/18 09:02 Freq: Status: Active Protocol: Document 07/09/18 16:31 SAK (Rec: 07/12/18 16:42 SAK [id number]) OP-PT Subjective Patient Comments Patient Comments Reports being very sore. Receptive to alternative flotation for deep water and trial manual aquatic therapy techniques for pain relief PT-OP-E Functional Tests Start: 04/09/18 09:02 Freq: Status: Active Protocol: Document 04/09/18 09:05 SAK (Rec: 04/13/18 10:13 [facility] [id number]) Functional Tests Apley's Scratch Test Action 1: The subject is instructed to touch the opposite shoulder with his/her hand. This motion checks Glenohumeral adduction, internal rotation , horizontal adduction and scapular protraction Action 2: The subject is instructed to place his/her arm overhead and reach behind the neck to touch his/her upper back. This motion checks Glenohumeral abduction, external rotation and scapular upward rotation and elevation. Action 3: The subject puts his/her hand on the lower back and reaches upward as far as possible. This motion checks glenohumeral adduction, internal rotation and scapular retraction with downward rotation Action 1- Left front of chest Action 1- Right front of chest Action 2- Left side of neck Action 2- Right side of neck Action 3- Left side of hip Action 3- Right side of hip PT-OP-F Manual Assessment Start: 04/09/18 09:02 Freq: Status: Active Protocol: Document 04/09/18 09:05 SAK (Rec: 04/13/18 10:13 [facility] [id number]) Manual Assessments Soft Tissue Assessment Soft Tissue Mobility Assessment difficult to assess due to high pain level PT-OP-G Mobility & Gait Start: 04/09/18 09:02 Freq: Status: Active Protocol: Document 04/09/18 09:05 SAK (Rec: 04/13/18 10:13 SAK [id number]) OP Mobility Evaluation Bed Mobility Rolling independent but painful Supine to and from Sit independent but painful Functional Movements Squats painful Other Functional Movements Unable to reach overhead or behind his back due to pain OP Gait Assessment Gait Gait Assistance Required: Independent Gait Deviations General Gait Pattern Wide Based Gait Comments Gait Comments slow, guarded, antalgic PT-OP-H Neuro Start: 04/09/18 09:02 Freq: Status: Active Protocol: Document 04/09/18 05:14 [facility] (Rec: 04/13/18 10:24 [facility] [id number]) Sensation Evaluation Gross Sensation Gross Sensation Left UE Impaired Right UE Impaired Left LE Impaired Right LE Impaired PT-OP-K Range of Motion Start: 04/09/18 09:02 Freq: Status: Active Protocol: Document 04/09/18 09:05 [facility] (Rec: 04/13/18 10:13 [facility] [id number]) Cervical Spine Range of Motion Cervical Spine Active Testing Position Sitting ROM Limitations Pain Comments moderately limited all motions due to pain Lumbar Spine Range of Motion Lumbar Spine Active ROM Limitations Pain Comments Moderately limited all motions due to pain Shoulder Goniometric Range of Motion Shoulder Measured in Degrees Left Shoulder ROM WFL No Right Shoulder ROM WFL No Shoulder ROM Limitations Shoulder ROM Limitations Muscle Weakness Pain Comments Unable to reach overhead or behind his back due to pain bilaterally Hip Goniometric Range of Motion Hip ROM Limitations Hip ROM Limitations Pain Comments moderately decreased due to pain bilaterally Knee Goniometric Range of Motion Knee ROM Limitations Comments WNL fuad Ankle and Foot Goniometric Range of Motion Ankle and Foot ROM Limitations Comments WNL fuad PT-OP-S Aquatic Treatment Start: 04/13/18 10:13 Freq: Status: Active Protocol: Document 07/09/18 16:31 [facility] (Rec: 07/12/18 16:42 [facility] [id number]) Aquatics Treatment Pool Entry/Exit Pool Entry/Exit Method Stairs Assistance Independent Water Walking Marching Water Level Chest Level Walking Equipment Ankle Floats Level of Assistance Standby Assistance Sideways Water Level Chest Level Walking Equipment Ankle Floats Level of Assistance Standby Assistance Comments Horizontal ab/add of arms Forwards Water Level Chest Level Walking Equipment Ankle Floats Level of Assistance Standby Assistance Lower Extremity Stretches 1 Details Hamstring Body Position Standing Comments active [place] Activities [place] Activities Bicycle Cross Country Running Hip Abduction/Adduction Sit Kicks Equipment black neck float, waist belt, black arm floats Comments Included 6 sets of 30 on/ 60 off intervals of running Manual Techniques Aquatic Massage supine c/s, l/s, shoulders fuad PT-OP-T Assessment and Plan Start: 04/13/18 10:13 Freq: Status: Active Protocol: Document 07/09/18 16:31 [facility]ARR[facility] (Rec: 07/12/18 16:42 [facility] [id number]) Physical Therapy Assessment Goals Five Impairment activity intolerance Short Term Goal (STG) Patient able to tolerate 30-45 min aquatic exercise program without excess fatigue or pain (goal met) District Associate Judge Goal (LTG) Patient to be safe and independent in a 45 min aquatic exercise program for long-term pain managment and fitness LTG Duration 2 months Four Impairment ROM STG Duration 6 wks District Associate Judge Goal (LTG) Improve ROM in neck, shoulders , spine, and hips to WFL with minimal to no pain including ability to reach overhead and behind his back so he can be independent with bathing and dressing. ( goal progress) LTG Duration 2 months Three Impairment activity tolerance/functional mobility: Oswestry Disability Index 76% Short Term Goal (STG) Decrease Oswestry score to 60% (goal met; 58% on 07/09/18) Residential Goal (LTG) Decrease Oswestry score to no greater than 40% (goal progress) LTG Duration 2 months Two Impairment activity tolerance: neck disability index 68% Short Term Goal (STG) Decrease neck disability index score to 55% (goal progress) STG Duration 4 wks District Associate Judge Goal (LTG) Decrease neck disability index score to no greater than 40% LTG Duration 2 months One Impairment Pain 8-9/10 Short Term Goal (STG) Decrease pain to no greater than 7/10 (goal met) Residential Goal (LTG) Decrease pain to no greater than 4/10 LTG Duration 2 months Progress Towards Goals Progress Comments AC is highly motivated with his aquatic therapy, often arriving early to do some water walking. His pain levels remain high, though activity tolerance improved. Would benefit from further aquatic PT with some modifications such as done today to see if further benefits can be gained. Goal progress as above. Assessment Summary Assessment modified flotation allowed patient to keep shoulders submerged in deep water for better aquatic support, and no upward pressure under shoulders. Good tolerance for manual techniques. Physical Therapy Plan Frequency and Duration Frequency of Treatment 2x/Week Duration of Treatment 2 months Plan of Care Start Date 07/09/18 Plan of Care End Date 09/08/18 Next Visit Focus/Plan Next Note Type Treatment Note Next Visit Plan ASsess response to today's treatment modifications. Progress as indicated to decrease pain and improve patient function.
--- NOTE | 2018-07-12 16:44 | PT.OPPOC ---
Current Diagnoses Spinal stenosis, cervical region (07/12/18) Provider Visit Care Team Role Provider Type Yin Vásquez MD Family Provider Non-Staff Primary Care Provider Specialty: Medical Address: [address] [place] [address], [id number] Email: Gaurang Sam MD Attending Provider Physician Specialty: Orthopedic Surgery Address: [address] [place] [address], [id number] Email: [email or web address] Plan Of Care PT-OP-T Assessment and Plan Start: 04/13/18 10:13 Freq: Status: Active Protocol: Document 07/09/18 16:31 SAK (Rec: 07/12/18 16:42 SAK [id number]) Physical Therapy Assessment Goals Five Impairment activity intolerance Short Term Goal (STG) Patient able to tolerate 30-45 min aquatic exercise program without excess fatigue or pain (goal met) Blindstitch Lapel Padder Goal (LTG) Patient to be safe and independent in a 45 min aquatic exercise program for long-term pain managment and fitness LTG Duration 2 months Four Impairment ROM STG Duration 6 wks Senior Care Goal (LTG) Improve ROM in neck, shoulders , spine, and hips to WFL with minimal to no pain including ability to reach overhead and behind his back so he can be independent with bathing and dressing. ( goal progress) LTG Duration 2 months Three Impairment activity tolerance/functional mobility: Oswestry Disability Index 76% Short Term Goal (STG) Decrease Oswestry score to 60% (goal met; 58% on 07/09/18) Senior Care Goal (LTG) Decrease Oswestry score to no greater than 40% (goal progress) LTG Duration 2 months Two Impairment activity tolerance: neck disability index 68% Short Term Goal (STG) Decrease neck disability index score to 55% (goal progress) STG Duration 4 wks Senior Care Goal (LTG) Decrease neck disability index score to no greater than 40% LTG Duration 2 months One Impairment Pain 8-9/10 Short Term Goal (STG) Decrease pain to no greater than 7/10 (goal met) Blindstitch Lapel Padder Goal (LTG) Decrease pain to no greater than 4/10 LTG Duration 2 months Progress Towards Goals Progress Comments AC is highly motivated with his aquatic therapy, often arriving early to do some water walking. His pain levels remain high, though activity tolerance improved. Would benefit from further aquatic PT with some modifications such as done today to see if further benefits can be gained. Goal progress as above. Assessment Summary Assessment modified flotation allowed patient to keep shoulders submerged in deep water for better aquatic support, and no upward pressure under shoulders. Good tolerance for manual techniques. Physical Therapy Plan Frequency and Duration Frequency of Treatment 2x/Week Duration of Treatment 2 months Plan of Care Start Date 07/09/18 Plan of Care End Date 09/08/18 Next Visit Focus/Plan Next Note Type Treatment Note Next Visit Plan ASsess response to today's treatment modifications. Progress as indicated to decrease pain and improve patient function. Plan of Care Dates Plan of Care Start Date 07/09/18 Plan of Care End Date 09/08/18 Please Sign and Return: I have reviewed this Plan of Care and certify that the skilled therapy services above are required to meet the patient?s needs. Physician Signature Date Printed Name and Credentials Clinical Instructor Signature Printed Name and Credentials
--- NOTE | 2018-07-15 08:56 | PT.OTN ---
Current Diagnoses Spinal stenosis, cervical region (07/12/18) Physical Therapy Treatment Note PT-OP-A Visit Information Start: 04/09/18 09:02 Freq: Status: Active Protocol: Document 07/12/18 12:30 [facility] (Rec: 07/15/18 08:56 [facility] [id number]) Out-Patient Physical Therapy Visit Information Visit Information Visit Type Treatment Note Visit Start Time 12:30 Visit Stop Time 13:15 Total Visit Minutes 45 Visit Number 16 Number of FRAME TENDER Visits 0 PT-OP-B Current Condition Start: 04/09/18 09:02 Freq: Status: Active Protocol: Document 04/09/18 09:05 [facility] (Rec: 04/09/18 09:23 [facility] [id number]) Current Condition History of Current Condition Onset Date 30-40 yrs History of Current Condition Patient c/o constant pain, . Pinched nerves in neck causing pain into UEs, injection 03/29/18; pain better in right, but now has constant pain left. LBP L2 and L4 pinched nerves; left LE with burning and throbbing pain along entire outside of LE; injection planned for 04/19. 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 Unable to drive more than 15 minutes unless has heated seats then can last 1- 1 1/2 hrs. 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 States after doing any physical activities is often down for several days due to pain. and [id number] and daughter assist patient. Biggest goal is pain relief. PMH includes stage 4 kidney failure, CHF, HTN, diabetic polyneuropathy, DM. Patient has been referred for aquatic therapy Prior Treatments and Tests chiropractor, massage therapy, accupunture, shots, H-wave. Prior aquatic therapy at [place] helpful. Shallow water up to neck level is preference. No pain pills since 2006. Treatment Goals Patient/Caregiver Goals Pain relief, improved tolerance to activity Prior Functional Status Baseline Function- ADL's Independent Baseline Function- Mobility Independent Baseline Function- Gait no device Baseline Function- Work/School able to work, do yardwork Current Functional Impairments (Reported) Functional Limitations- ADL's All activity causes pain; assist of for dressing, bathing Functional Limitations- Mobility/Gait Requires 4WW for any community distances Functional Limitations- Work/School unable Personal Factors Other Personal Factors That May Effect depression Therapy/Recovery PT-OP-C Subjective Start: 04/09/18 09:02 Freq: Status: Active Protocol: Document 07/12/18 12:30 [facility] (Rec: 07/15/18 08:56 [facility] [id number]) OP-PT Subjective Patient Comments Patient Comments No new c/o, felt manual therapy techniques helpful for decreasing his pain for a couple hours. Requests we do again today PT-OP-E Functional Tests Start: 04/09/18 09:02 Freq: Status: Active Protocol: Document 04/09/18 09:05 [facility] (Rec: 04/13/18 10:13 [facility] [id number]) Functional Tests Apley's Scratch Test Action 1: The subject is instructed to touch the opposite shoulder with his/her hand. This motion checks Glenohumeral adduction, internal rotation , horizontal adduction and scapular protraction Action 2: The subject is instructed to place his/her arm overhead and reach behind the neck to touch his/her upper back. This motion checks Glenohumeral abduction, external rotation and scapular upward rotation and elevation. Action 3: The subject puts his/her hand on the lower back and reaches upward as far as possible. This motion checks glenohumeral adduction, internal rotation and scapular retraction with downward rotation Action 1- Left front of chest Action 1- Right front of chest Action 2- Left side of neck Action 2- Right side of neck Action 3- Left side of hip Action 3- Right side of hip PT-OP-F Manual Assessment Start: 04/09/18 09:02 Freq: Status: Active Protocol: Document 04/09/18 09:05 [facility] (Rec: 04/13/18 10:13 [facility] [id number]) Manual Assessments Soft Tissue Assessment Soft Tissue Mobility Assessment difficult to assess due to high pain level PT-OP-G Mobility & Gait Start: 04/09/18 09:02 Freq: Status: Active Protocol: Document 04/09/18 09:05 [facility] (Rec: 04/13/18 10:13 [facility] [id number]) OP Mobility Evaluation Bed Mobility Rolling independent but painful Supine to and from Sit independent but painful Functional Movements Squats painful Other Functional Movements Unable to reach overhead or behind his back due to pain OP Gait Assessment Gait Gait Assistance Required: Independent Gait Deviations General Gait Pattern Wide Based Gait Comments Gait Comments slow, guarded, antalgic PT-OP-H Neuro Start: 04/09/18 09:02 Freq: Status: Active Protocol: Document 04/09/18 05:14 [facility] (Rec: 04/13/18 10:24 [facility] [id number]) Sensation Evaluation Gross Sensation Gross Sensation Left UE Impaired Right UE Impaired Left LE Impaired Right LE Impaired PT-OP-K Range of Motion Start: 04/09/18 09:02 Freq: Status: Active Protocol: Document 04/09/18 09:05 [facility] (Rec: 04/13/18 10:13 [facility] [id number]) Cervical Spine Range of Motion Cervical Spine Active Testing Position Sitting ROM Limitations Pain Comments moderately limited all motions due to pain Lumbar Spine Range of Motion Lumbar Spine Active ROM Limitations Pain Comments Moderately limited all motions due to pain Shoulder Goniometric Range of Motion Shoulder Measured in Degrees Left Shoulder ROM WFL No Right Shoulder ROM WFL No Shoulder ROM Limitations Shoulder ROM Limitations Muscle Weakness Pain Comments Unable to reach overhead or behind his back due to pain bilaterally Hip Goniometric Range of Motion Hip ROM Limitations Hip ROM Limitations Pain Comments moderately decreased due to pain bilaterally Knee Goniometric Range of Motion Knee ROM Limitations Comments WNL fuad Ankle and Foot Goniometric Range of Motion Ankle and Foot ROM Limitations Comments WNL fuad PT-OP-S Aquatic Treatment Start: 04/13/18 10:13 Freq: Status: Active Protocol: Document 07/12/18 12:30 [facility] (Rec: 07/15/18 08:56 [facility] [id number]) Aquatics Treatment Pool Entry/Exit Pool Entry/Exit Method Stairs Assistance Independent Water Walking [place] March Water Level Chest Level Walking Equipment Resistance Fins Comments small fins Marching Water Level Chest Level Walking Equipment Ankle Floats Level of Assistance Standby Assistance Sideways Water Level Chest Level Walking Equipment Ankle Floats Level of Assistance Standby Assistance Comments Horizontal ab/add of arms Forwards Water Level Chest Level Walking Equipment Ankle Floats Level of Assistance Standby Assistance Lower Extremity Exercises 1 Details Hip flexion/ext, Hip AB, circles Body Position Standing Water Level Chest Level Equipment Resistance Fins(small green) Reps/Duration 12 reps Comments Cues to keep ROM within tolerance. Lower Extremity Stretches 1 Details Hamstring Body Position Standing Equipment Small Noodle [place] Activities [place] Activities Bicycle [place] Running Hip Abduction/Adduction Sit Kicks Equipment black neck float, waist belt, black arm floats Comments Included 6 sets of 30 on/ 60 off intervals of running Manual Techniques Jennifer Ragaz for gentle trunk ROM; supine with neck float, waist float, LE floats Aquatic Massage supine c/s, l/s, shoulders fuad PT-OP-T Assessment and Plan Start: 04/13/18 10:13 Freq: Status: Active Protocol: Document 07/12/18 12:30 [facility] (Rec: 07/15/18 08:56 [facility] [id number]) Physical Therapy Assessment Goals Five Impairment activity intolerance Short Term Goal (STG) Patient able to tolerate 30-45 min aquatic exercise program without excess fatigue or pain (goal met) Intermediate Goal (LTG) Patient to be safe and independent in a 45 min aquatic exercise program for long-term pain managment and fitness LTG Duration 2 months Four Impairment ROM STG Duration 6 wks Mandarin Speaking Nanny Goal (LTG) Improve ROM in neck, shoulders , spine, and hips to WFL with minimal to no pain including ability to reach overhead and behind his back so he can be independent with bathing and dressing. ( goal progress) LTG Duration 2 months Three Impairment activity tolerance/functional mobility: Oswestry Disability Index 76% Short Term Goal (STG) Decrease Oswestry score to 60% (goal met; 58% on 07/09/18) Intermediate Goal (LTG) Decrease Oswestry score to no greater than 40% (goal progress) LTG Duration 2 months Two Impairment activity tolerance: neck disability index 68% Short Term Goal (STG) Decrease neck disability index score to 55% (goal progress) STG Duration 4 wks Intermediate Goal (LTG) Decrease neck disability index score to no greater than 40% LTG Duration 2 months One Impairment Pain 8-9/10 Short Term Goal (STG) Decrease pain to no greater than 7/10 (goal met) Intermediate Goal (LTG) Decrease pain to no greater than 4/10 LTG Duration 2 months Progress Towards Goals Progress Comments Decreased pain with manual techniques. Patient remains highly motivated with aquatic exercise, plans to come independently after discharge Assessment Summary Assessment Best pain relief with aquatic manual techniques, continues to tolerate progression of quatic ex Physical Therapy Plan Next Visit Focus/Plan Next Note Type Treatment Note Next Visit Plan Discuss POC, further PT visits . Progress aquatic ex; issue written program.
--- NOTE | 2018-07-28 08:48 | PT.OTN ---
Current Diagnoses Spinal stenosis, cervical region (07/26/18) Physical Therapy Treatment Note PT-OP-A Visit Information Start: 04/09/18 09:02 Freq: Status: Active Protocol: Document 07/26/18 11:45 [facility] (Rec: 07/28/18 08:48 [facility] [id number]) Out-Patient Physical Therapy Visit Information Visit Information Visit Type Treatment Note Visit Start Time 11:45 Visit Stop Time 12:30 Total Visit Minutes 45 Visit Number 17 Number of ENERGY SYSTEMS ENGINEER Visits 0 Evaluation Information Evaluation Date 04/09/18 PT-OP-B Current Condition Start: 04/09/18 09:02 Freq: Status: Active Protocol: Document 04/09/18 09:05 [facility] (Rec: 04/09/18 09:23 [facility] [id number]) Current Condition History of Current Condition Onset Date 30-40 yrs History of Current Condition Patient c/o constant pain, . Pinched nerves in neck causing pain into UEs, injection 03/29/18; pain better in right, but now has constant pain left. LBP L2 and L4 pinched nerves; left LE with burning and throbbing pain along entire outside of LE; injection planned for 04/19. 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 Unable to drive more than 15 minutes unless has heated seats then can last 1- 1 1/2 hrs. 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 States after doing any physical activities is often down for several days due to pain. and [id number] and daughter assist patient. Biggest goal is pain relief. PMH includes stage 4 kidney failure, CHF, HTN, diabetic polyneuropathy, DM. Patient has been referred for aquatic therapy Prior Treatments and Tests chiropractor, massage therapy, accupunture, shots, H-wave. Prior aquatic therapy at [place] helpful. Shallow water up to neck level is preference. No pain pills since 2006. Treatment Goals Patient/Caregiver Goals Pain relief, improved tolerance to activity Prior Functional Status Baseline Function- ADL's Independent Baseline Function- Mobility Independent Baseline Function- Gait no device Baseline Function- Work/School able to work, do yardwork Current Functional Impairments (Reported) Functional Limitations- ADL's All activity causes pain; assist of for dressing, bathing Functional Limitations- Mobility/Gait Requires 4WW for any community distances Functional Limitations- Work/School unable Personal Factors Other Personal Factors That May Effect depression Therapy/Recovery PT-OP-C Subjective Start: 04/09/18 09:02 Freq: Status: Active Protocol: Document 07/26/18 11:45 [facility] (Rec: 07/28/18 08:48 [facility] [id number]) OP-PT Subjective Patient Comments Patient Comments Patient reports he is walking a little better and longer, again manual techniques helpful for decreasing his pain for rest of day after PT. PT-OP-E Functional Tests Start: 04/09/18 09:02 Freq: Status: Active Protocol: Document 04/09/18 09:05 [facility] (Rec: 04/13/18 10:13 [facility] [id number]) Functional Tests Apley's Scratch Test Action 1: The subject is instructed to touch the opposite shoulder with his/her hand. This motion checks Glenohumeral adduction, internal rotation , horizontal adduction and scapular protraction Action 2: The subject is instructed to place his/her arm overhead and reach behind the neck to touch his/her upper back. This motion checks Glenohumeral abduction, external rotation and scapular upward rotation and elevation. Action 3: The subject puts his/her hand on the lower back and reaches upward as far as possible. This motion checks glenohumeral adduction, internal rotation and scapular retraction with downward rotation Action 1- Left front of chest Action 1- Right front of chest Action 2- Left side of neck Action 2- Right side of neck Action 3- Left side of hip Action 3- Right side of hip PT-OP-F Manual Assessment Start: 04/09/18 09:02 Freq: Status: Active Protocol: Document 04/09/18 09:05 [facility] (Rec: 04/13/18 10:13 [facility] [id number]) Manual Assessments Soft Tissue Assessment Soft Tissue Mobility Assessment difficult to assess due to high pain level PT-OP-G Mobility & Gait Start: 04/09/18 09:02 Freq: Status: Active Protocol: Document 04/09/18 09:05 [facility] (Rec: 04/13/18 10:13 [facility] [id number]) OP Mobility Evaluation Bed Mobility Rolling independent but painful Supine to and from Sit independent but painful Functional Movements Squats painful Other Functional Movements Unable to reach overhead or behind his back due to pain OP Gait Assessment Gait Gait Assistance Required: Independent Gait Deviations General Gait Pattern Wide Based Gait Comments Gait Comments slow, guarded, antalgic PT-OP-H Neuro Start: 04/09/18 09:02 Freq: Status: Active Protocol: Document 04/09/18 05:14 [facility] (Rec: 04/13/18 10:24 [facility] [id number]) Sensation Evaluation Gross Sensation Gross Sensation Left UE Impaired Right UE Impaired Left LE Impaired Right LE Impaired PT-OP-K Range of Motion Start: 04/09/18 09:02 Freq: Status: Active Protocol: Document 04/09/18 09:05 [facility] (Rec: 04/13/18 10:13 [facility] [id number]) Cervical Spine Range of Motion Cervical Spine Active Testing Position Sitting ROM Limitations Pain Comments moderately limited all motions due to pain Lumbar Spine Range of Motion Lumbar Spine Active ROM Limitations Pain Comments Moderately limited all motions due to pain Shoulder Goniometric Range of Motion Shoulder Measured in Degrees Left Shoulder ROM WFL No Right Shoulder ROM WFL No Shoulder ROM Limitations Shoulder ROM Limitations Muscle Weakness Pain Comments Unable to reach overhead or behind his back due to pain bilaterally Hip Goniometric Range of Motion Hip ROM Limitations Hip ROM Limitations Pain Comments moderately decreased due to pain bilaterally Knee Goniometric Range of Motion Knee ROM Limitations Comments WNL fuad Ankle and Foot Goniometric Range of Motion Ankle and Foot ROM Limitations Comments WNL fuad PT-OP-S Aquatic Treatment Start: 04/13/18 10:13 Freq: Status: Active Protocol: Document 07/26/18 11:45 [facility] (Rec: 07/28/18 08:48 [facility] [id number]) Aquatics Treatment Pool Entry/Exit Pool Entry/Exit Method Stairs Assistance Independent Water Walking [place] March Water Level Chest Level Walking Equipment Resistance Fins Comments small fins Marching Water Level Chest Level Walking Equipment Ankle Floats Level of Assistance Standby Assistance Sideways Water Level Chest Level Walking Equipment Ankle Floats Level of Assistance Standby Assistance Comments Horizontal ab/add of arms Forwards Water Level Chest Level Walking Equipment Ankle Floats Level of Assistance Standby Assistance Lower Extremity Exercises squats Details mini Body Position Standing Water Level Chest Level Reps/Duration 10 1 Details Hip flexion/ext, Hip AB, circles Body Position Standing Water Level Chest Level Equipment Resistance Fins(small green) Reps/Duration 12 reps Comments Cues to keep ROM within tolerance. Lower Extremity Stretches 3 Details Single knee to chest Body Position Standing Reps/Duration x 2 Comments foot cramped with noodle 2 Details quad Body Position Standing Water Level Waist Level Equipment [place] Float Reps/Duration foot cramped 1 Details Hamstring Body Position Standing Equipment Small Noodle Upper Extremity Exercises 1 Details Shoulder Hor.AB/AD, flexion/ ext Body Position Standing Water Level Chest Level Reps/Duration x 10 Comments cues for core stabilization [place] Activities [place] Activities Bicycle [place] Running Hip Abduction/Adduction Sit Kicks Equipment black neck float, waist belt, black arm floats Comments Included 8 sets of 30 on/ 60 off intervals of running Manual Techniques Bad Ragaz for gentle trunk ROM; supine with neck float, waist float, LE floats Aquatic Massage supine c/s, l/s, shoulders fuad PT-OP-T Assessment and Plan Start: 04/13/18 10:13 Freq: Status: Active Protocol: Document 07/26/18 11:45 [facility] (Rec: 07/28/18 08:48 [facility] [id number]) Physical Therapy Assessment Goals Five Impairment activity intolerance Short Term Goal (STG) Patient able to tolerate 30-45 min aquatic exercise program without excess fatigue or pain (goal met) Refinery Operator Coking Goal (LTG) Patient to be safe and independent in a 45 min aquatic exercise program for long-term pain managment and fitness LTG Duration 2 months Four Impairment ROM STG Duration 6 wks Care Home Goal (LTG) Improve ROM in neck, shoulders , spine, and hips to WFL with minimal to no pain including ability to reach overhead and behind his back so he can be independent with bathing and dressing. ( goal progress) LTG Duration 2 months Three Impairment activity tolerance/functional mobility: Oswestry Disability Index 76% Short Term Goal (STG) Decrease Oswestry score to 60% (goal met; 58% on 07/09/18) Care Home Goal (LTG) Decrease Oswestry score to no greater than 40% (goal progress) LTG Duration 2 months Two Impairment activity tolerance: neck disability index 68% Short Term Goal (STG) Decrease neck disability index score to 55% (goal progress) STG Duration 4 wks Refinery Operator Coking Goal (LTG) Decrease neck disability index score to no greater than 40% LTG Duration 2 months One Impairment Pain 8-9/10 Short Term Goal (STG) Decrease pain to no greater than 7/10 (goal met) Care Home Goal (LTG) Decrease pain to no greater than 4/10 LTG Duration 2 months Assessment Summary Assessment Able to tolerate 8 sets of intervals today, improving gait tolerance per patient report. Benefiting from aquatic therapy. Physical Therapy Plan Frequency and Duration Frequency of Treatment 2x/Week Duration of Treatment 2 months Plan of Care Start Date 07/09/18 Plan of Care End Date 09/08/18 Therapeutic Interventions Therapeutic Interventions Aquatic Therapy Home Exercise Program Patient/Caregiver Education Next Visit Focus/Plan Next Note Type Treatment Note Next Visit Plan Patient to check out pool that has reopened nearer his home. Further progression of aquatic exercise and manual techniques for pain management and to improve function.
--- NOTE | 2018-08-06 08:24 | PT.OTN ---
Current Diagnoses Spinal stenosis, cervical region (08/04/18) Physical Therapy Treatment Note PT-OP-A Visit Information Start: 04/09/18 09:02 Freq: Status: Active Protocol: Document 08/04/18 08:17 [facility] (Rec: 08/06/18 08:24 [facility] [id number]) Out-Patient Physical Therapy Visit Information Visit Information Visit Type Treatment Note Visit Start Time 11:45 Visit Stop Time 12:30 Total Visit Minutes 45 Visit Number 18 Number of PROSTHETIC LAB TECHNICIAN Visits 0 Evaluation Information Evaluation Date 04/09/18 PT-OP-B Current Condition Start: 04/09/18 09:02 Freq: Status: Active Protocol: Document 04/09/18 09:05 [facility] (Rec: 04/09/18 09:23 [facility] [id number]) Current Condition History of Current Condition Onset Date 30-40 yrs History of Current Condition Patient c/o constant pain, . Pinched nerves in neck causing pain into UEs, injection 03/29/18; pain better in right, but now has constant pain left. LBP L2 and L4 pinched nerves; left LE with burning and throbbing pain along entire outside of LE; injection planned for 04/19. 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 Unable to drive more than 15 minutes unless has heated seats then can last 1- 1 1/2 hrs. 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 States after doing any physical activities is often down for several days due to pain. and [id number] and daughter assist patient. Biggest goal is pain relief. PMH includes stage 4 kidney failure, CHF, HTN, diabetic polyneuropathy, DM. Patient has been referred for aquatic therapy Prior Treatments and Tests chiropractor, massage therapy, accupunture, shots, H-wave. Prior aquatic therapy at [place] helpful. Shallow water up to neck level is preference. No pain pills since 2006. Treatment Goals Patient/Caregiver Goals Pain relief, improved tolerance to activity Prior Functional Status Baseline Function- ADL's Independent Baseline Function- Mobility Independent Baseline Function- Gait no device Baseline Function- Work/School able to work, do yardwork Current Functional Impairments (Reported) Functional Limitations- ADL's All activity causes pain; assist of for dressing, bathing Functional Limitations- Mobility/Gait Requires 4WW for any community distances Functional Limitations- Work/School unable Personal Factors Other Personal Factors That May Effect depression Therapy/Recovery PT-OP-C Subjective Start: 04/09/18 09:02 Freq: Status: Active Protocol: Document 08/04/18 08:17 [facility] (Rec: 08/06/18 08:24 [facility] [id number]) OP-PT Subjective Patient Comments Patient Comments Hasn't been at aquatic PT for 1 1/2 weeks, reports increase in pain. PT-OP-E Functional Tests Start: 04/09/18 09:02 Freq: Status: Active Protocol: Document 04/09/18 09:05 [facility] (Rec: 04/13/18 10:13 [facility] [id number]) Functional Tests Apley's Scratch Test Action 1: The subject is instructed to touch the opposite shoulder with his/her hand. This motion checks Glenohumeral adduction, internal rotation , horizontal adduction and scapular protraction Action 2: The subject is instructed to place his/her arm overhead and reach behind the neck to touch his/her upper back. This motion checks Glenohumeral abduction, external rotation and scapular upward rotation and elevation. Action 3: The subject puts his/her hand on the lower back and reaches upward as far as possible. This motion checks glenohumeral adduction, internal rotation and scapular retraction with downward rotation Action 1- Left front of chest Action 1- Right front of chest Action 2- Left side of neck Action 2- Right side of neck Action 3- Left side of hip Action 3- Right side of hip PT-OP-F Manual Assessment Start: 04/09/18 09:02 Freq: Status: Active Protocol: Document 04/09/18 09:05 [facility] (Rec: 04/13/18 10:13 [facility] [id number]) Manual Assessments Soft Tissue Assessment Soft Tissue Mobility Assessment difficult to assess due to high pain level PT-OP-G Mobility & Gait Start: 04/09/18 09:02 Freq: Status: Active Protocol: Document 04/09/18 09:05 [facility] (Rec: 04/13/18 10:13 [facility] [id number]) OP Mobility Evaluation Bed Mobility Rolling independent but painful Supine to and from Sit independent but painful Functional Movements Squats painful Other Functional Movements Unable to reach overhead or behind his back due to pain OP Gait Assessment Gait Gait Assistance Required: Independent Gait Deviations General Gait Pattern Wide Based Gait Comments Gait Comments slow, guarded, antalgic PT-OP-H Neuro Start: 04/09/18 09:02 Freq: Status: Active Protocol: Document 04/09/18 05:14 [facility] (Rec: 04/13/18 10:24 [facility] [id number]) Sensation Evaluation Gross Sensation Gross Sensation Left UE Impaired Right UE Impaired Left LE Impaired Right LE Impaired PT-OP-K Range of Motion Start: 04/09/18 09:02 Freq: Status: Active Protocol: Document 04/09/18 09:05 [facility] (Rec: 04/13/18 10:13 [facility] [id number]) Cervical Spine Range of Motion Cervical Spine Active Testing Position Sitting ROM Limitations Pain Comments moderately limited all motions due to pain Lumbar Spine Range of Motion Lumbar Spine Active ROM Limitations Pain Comments Moderately limited all motions due to pain Shoulder Goniometric Range of Motion Shoulder Measured in Degrees Left Shoulder ROM WFL No Right Shoulder ROM WFL No Shoulder ROM Limitations Shoulder ROM Limitations Muscle Weakness Pain Comments Unable to reach overhead or behind his back due to pain bilaterally Hip Goniometric Range of Motion Hip ROM Limitations Hip ROM Limitations Pain Comments moderately decreased due to pain bilaterally Knee Goniometric Range of Motion Knee ROM Limitations Comments WNL fuad Ankle and Foot Goniometric Range of Motion Ankle and Foot ROM Limitations Comments WNL fuad PT-OP-S Aquatic Treatment Start: 04/13/18 10:13 Freq: Status: Active Protocol: Document 08/04/18 08:17 [facility] (Rec: 08/06/18 08:24 [facility] [id number]) Aquatics Treatment Pool Entry/Exit Pool Entry/Exit Method Stairs Assistance Independent Water Walking [place] March Water Level Chest Level Walking Equipment Resistance Fins Marching Water Level Chest Level Level of Assistance Standby Assistance Sideways Water Level Chest Level Level of Assistance Standby Assistance Comments Horizontal ab/add of arms Forwards Water Level Chest Level Level of Assistance Standby Assistance Lower Extremity Exercises squats Details mini Body Position Standing Water Level Chest Level Reps/Duration 10 1 Details Hip flexion/ext, Hip AB, circles Body Position Standing Water Level Chest Level Reps/Duration 12 reps Comments Cues to keep ROM within tolerance. Lower Extremity Stretches 3 Details Single knee to chest Body Position Standing Reps/Duration x 2 2 Details quad Body Position Standing Water Level Waist Level Equipment Small Noodle 1 Details Hamstring Body Position Standing Equipment smal noodle Upper Extremity Exercises 1 Details Shoulder Hor.AB/AD, flexion/ ext Body Position Standing Water Level Chest Level Reps/Duration x 10 Comments cues for core stabilization [place] Activities [place] Activities Bicycle Cross Country Running Hip Abduction/Adduction Sit Kicks Equipment black neck float, waist belt, black arm floats Manual Techniques [place] for gentle trunk ROM; supine with neck float, waist float, LE floats Aquatic Massage supine c/s, l/s, shoulders fuad PT-OP-T Assessment and Plan Start: 04/13/18 10:13 Freq: Status: Active Protocol: Document 08/04/18 08:17 [facility] (Rec: 08/06/18 08:24 [facility] [id number]) Physical Therapy Assessment Goals Five Impairment activity intolerance Short Term Goal (STG) Patient able to tolerate 30-45 min aquatic exercise program without excess fatigue or pain (goal met) Compensator Goal (LTG) Patient to be safe and independent in a 45 min aquatic exercise program for long-term pain managment and fitness LTG Duration 2 months Four Impairment ROM STG Duration 6 wks Alf Goal (LTG) Improve ROM in neck, shoulders , spine, and hips to WFL with minimal to no pain including ability to reach overhead and behind his back so he can be independent with bathing and dressing. ( goal progress) LTG Duration 2 months Three Impairment activity tolerance/functional mobility: Oswestry Disability Index 76% Short Term Goal (STG) Decrease Oswestry score to 60% (goal met; 58% on 07/09/18) Alf Goal (LTG) Decrease Oswestry score to no greater than 40% (goal progress) LTG Duration 2 months Two Impairment activity tolerance: neck disability index 68% Short Term Goal (STG) Decrease neck disability index score to 55% (goal progress) STG Duration 4 wks Alf Goal (LTG) Decrease neck disability index score to no greater than 40% LTG Duration 2 months One Impairment Pain 8-9/10 Short Term Goal (STG) Decrease pain to no greater than 7/10 (goal met) Alf Goal (LTG) Decrease pain to no greater than 4/10 LTG Duration 2 months Assessment Summary Assessment Decreased intensity and resistance today due to increased fatigue. Physical Therapy Plan Frequency and Duration Frequency of Treatment 2x/Week Duration of Treatment 2 months Plan of Care Start Date 07/09/18 Plan of Care End Date 09/08/18 Therapeutic Interventions Therapeutic Interventions Aquatic Therapy Home Exercise Program Patient/Caregiver Education Next Visit Focus/Plan Next Note Type Treatment Note Next Visit Plan Patient to check out pool that has reopened nearer his home; not able to since last seen due to helping out a friend in trouble. Further progression of aquatic exercise and manual techniques for pain management and to improve function.
--- NOTE | 2018-09-13 15:52 | PT.OTN ---
Current Diagnoses Spinal stenosis, cervical region (09/13/18) Physical Therapy Treatment Note PT-OP-A Visit Information Start: 04/09/18 09:02 Freq: Status: Active Protocol: Document 09/13/18 12:30 [facility] (Rec: 09/13/18 15:51 [facility] [email or web address]) Out-Patient Physical Therapy Visit Information Visit Information Visit Type Aquatic Treatment Note Visit Start Time 12:30 Visit Stop Time 13:15 Total Visit Minutes 45 Visit Number 19 Number of SIGNAL HELPER Visits 1 PT-OP-B Current Condition Start: 04/09/18 09:02 Freq: Status: Active Protocol: Document 04/09/18 09:05 [facility] (Rec: 04/09/18 09:23 [facility] [id number]) Current Condition History of Current Condition Onset Date 30-40 yrs History of Current Condition Patient c/o constant pain, . Pinched nerves in neck causing pain into UEs, injection 03/29/18; pain better in right, but now has constant pain left. LBP L2 and L4 pinched nerves; left LE with burning and throbbing pain along entire outside of LE; injection planned for 04/19. 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 Unable to drive more than 15 minutes unless has heated seats then can last 1- 1 1/2 hrs. 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 States after doing any physical activities is often down for several days due to pain. and [id number] and daughter assist patient. Biggest goal is pain relief. PMH includes stage 4 kidney failure, CHF, HTN, diabetic polyneuropathy, DM. Patient has been referred for aquatic therapy Prior Treatments and Tests chiropractor, massage therapy, accupunture, shots, H-wave. Prior aquatic therapy at [place] helpful. Shallow water up to neck level is preference. No pain pills since 2006. Treatment Goals Patient/Caregiver Goals Pain relief, improved tolerance to activity Prior Functional Status Baseline Function- ADL's Independent Baseline Function- Mobility Independent Baseline Function- Gait no device Baseline Function- Work/School able to work, do yardwork Current Functional Impairments (Reported) Functional Limitations- ADL's All activity causes pain; assist of for dressing, bathing Functional Limitations- Mobility/Gait Requires 4WW for any community distances Functional Limitations- Work/School unable Personal Factors Other Personal Factors That May Effect depression Therapy/Recovery PT-OP-C Subjective Start: 04/09/18 09:02 Freq: Status: Active Protocol: Document 09/13/18 12:30 [facility] (Rec: 09/13/18 15:51 [facility] [id number]) OP-PT Subjective Patient Comments Patient Comments Pt reports his pain has increased since last aquatic therapy. States he won't go to [employer] to continue HEP. PT-OP-E Functional Tests Start: 04/09/18 09:02 Freq: Status: Active Protocol: Document 04/09/18 09:05 [facility] (Rec: 04/13/18 10:13 [facility] [id number]) Functional Tests Apley's Scratch Test Action 1: The subject is instructed to touch the opposite shoulder with his/her hand. This motion checks Glenohumeral adduction, internal rotation , horizontal adduction and scapular protraction Action 2: The subject is instructed to place his/her arm overhead and reach behind the neck to touch his/her upper back. This motion checks Glenohumeral abduction, external rotation and scapular upward rotation and elevation. Action 3: The subject puts his/her hand on the lower back and reaches upward as far as possible. This motion checks glenohumeral adduction, internal rotation and scapular retraction with downward rotation Action 1- Left front of chest Action 1- Right front of chest Action 2- Left side of neck Action 2- Right side of neck Action 3- Left side of hip Action 3- Right side of hip PT-OP-F Manual Assessment Start: 04/09/18 09:02 Freq: Status: Active Protocol: Document 04/09/18 09:05 [facility] (Rec: 04/13/18 10:13 [facility] [id number]) Manual Assessments Soft Tissue Assessment Soft Tissue Mobility Assessment difficult to assess due to high pain level PT-OP-G Mobility & Gait Start: 04/09/18 09:02 Freq: Status: Active Protocol: Document 04/09/18 09:05 [facility] (Rec: 04/13/18 10:13 [facility] [id number]) OP Mobility Evaluation Bed Mobility Rolling independent but painful Supine to and from Sit independent but painful Functional Movements Squats painful Other Functional Movements Unable to reach overhead or behind his back due to pain OP Gait Assessment Gait Gait Assistance Required: Independent Gait Deviations General Gait Pattern Wide Based Gait Comments Gait Comments slow, guarded, antalgic PT-OP-H Neuro Start: 04/09/18 09:02 Freq: Status: Active Protocol: Document 04/09/18 05:14 [facility] (Rec: 04/13/18 10:24 [facility] [id number]) Sensation Evaluation Gross Sensation Gross Sensation Left UE Impaired Right UE Impaired Left LE Impaired Right LE Impaired PT-OP-K Range of Motion Start: 04/09/18 09:02 Freq: Status: Active Protocol: Document 04/09/18 09:05 [facility] (Rec: 04/13/18 10:13 [facility] [id number]) Cervical Spine Range of Motion Cervical Spine Active Testing Position Sitting ROM Limitations Pain Comments moderately limited all motions due to pain Lumbar Spine Range of Motion Lumbar Spine Active ROM Limitations Pain Comments Moderately limited all motions due to pain Shoulder Goniometric Range of Motion Shoulder Measured in Degrees Left Shoulder ROM WFL No Right Shoulder ROM WFL No Shoulder ROM Limitations Shoulder ROM Limitations Muscle Weakness Pain Comments Unable to reach overhead or behind his back due to pain bilaterally Hip Goniometric Range of Motion Hip ROM Limitations Hip ROM Limitations Pain Comments moderately decreased due to pain bilaterally Knee Goniometric Range of Motion Knee ROM Limitations Comments WNL fuad Ankle and Foot Goniometric Range of Motion Ankle and Foot ROM Limitations Comments WNL fuad PT-OP-S Aquatic Treatment Start: 04/13/18 10:13 Freq: Status: Active Protocol: Document 09/13/18 12:30 [facility] (Rec: 09/13/18 15:51 [facility] [id number]) Aquatics Treatment Pool Entry/Exit Pool Entry/Exit Method Stairs Assistance Independent Water Walking [place] March Water Level Chest Level Walking Equipment Resistance Fins Marching Water Level Chest Level Level of Assistance Standby Assistance Sideways Water Level Chest Level Level of Assistance Standby Assistance Comments Horizontal ab/add of arms Forwards Water Level Chest Level Level of Assistance Standby Assistance Lower Extremity Exercises squats Details mini Body Position Standing Water Level Chest Level Reps/Duration 1 min Comments maintain full back against wall 1 Details Hip flexion/ext, Hip AB, circles Body Position Standing Water Level Chest Level Reps/Duration 10 Comments c/o pain; stopped to stretch Lower Extremity Stretches 3 Details Single knee to chest Body Position Standing Reps/Duration 1 min bilat Comments therapist assist 2 Details quad Body Position Standing Water Level Chest Level Reps/Duration against wall Comments stopped d/t cramping 1 Details Hamstring Body Position Standing Equipment 3 min Reps/Duration foot resting on therapist knee Comments no complaints Upper Extremity Exercises 1 Details Shoulder Hor.AB/AD, flexion/ ext Body Position Standing Water Level Chest Level Reps/Duration x 10 Comments cues for core stabilization [place] Activities [place] Activities Bicycle Cross [place] Hip Abduction/Adduction Equipment black neck float, waist belt, black arm floats Manual Techniques Aquatic Massage vastus lateralis, hip PT-OP-T Assessment and Plan Start: 04/13/18 10:13 Freq: Status: Active Protocol: Document 09/13/18 12:30 LJ (Rec: 09/13/18 15:51 [facility] [id number]) Physical Therapy Assessment Assessment Summary Assessment Pt c/o pain during exercise. Suggested decreased intensity but pt continued to exercise at the same intensity. Also, performed his own exercises rather than ones suggested by therapist. Despite pain pt was bouncing in chest deep water. Physical Therapy Plan Next Visit Focus/Plan Next Note Type Treatment Note Next Visit Plan seerecert note by treating PT
--- NOTE | 2018-09-13 16:53 | PT.OTRE ---
Current Diagnoses Spinal stenosis, cervical region (09/13/18) Past Medical History (Last Updated 05/09/18 @ 10:33 by Sahil Tee RN) Constipation (Acute) GERD (gastroesophageal reflux disease) (Acute) HTN (hypertension) (Acute) Heart failure (Acute) Hypercholesteremia (Acute) Knee pain (Acute) Renal disease (Acute) Provider Visit Care Team Role Provider Type Yin Vásquez MD Family Provider Non-Staff Primary Care Provider Specialty: Medical Address: [address] [place] [address], [id number] Email: Gaurang Sam MD Attending Provider Physician Specialty: Orthopedic Surgery Address: [address] [place] [address], [id number] Email: [email or web address] Physical Therapy Re-Evaluation PT-OP-A Visit Information Start: 04/09/18 09:02 Freq: Status: Active Protocol: Document 09/13/18 16:[address] [facility] (Rec: 09/13/18 16:[address] [facility] [id number]) Out-Patient Physical Therapy Visit Information Visit Information Visit Type Re-Evaluation Visit Number 20 Number of DISK SANDER Visits 0 Evaluation Information Evaluation Date 04/09/18 PT-OP-B Current Condition Start: 04/09/18 09:02 Freq: Status: Active Protocol: Document 04/09/18 09:[address] [facility] (Rec: 04/09/18 09:[address] [facility] [id number]) Current Condition History of Current Condition Onset Date 30-40 yrs History of Current Condition Patient c/o constant pain, . Pinched nerves in neck causing pain into UEs, injection 03/29/18; pain better in right, but now has constant pain left. LBP L2 and L4 pinched nerves; left LE with burning and throbbing pain along entire outside of LE; injection planned for 04/19. 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 Unable to drive more than 15 minutes unless has heated seats then can last 1- 1 1/2 hrs. States he was in [place] for 24 years. 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 States after doing any physical activities is often down for several days due to pain. and [id number] and daughter assist patient. Biggest goal is pain relief. PMH includes stage 4 kidney failure, CHF, HTN, diabetic polyneuropathy, DM. Patient has been referred for aquatic therapy Prior Treatments and Tests chiropractor, massage therapy, accupunture, shots, H-wave. Prior aquatic therapy at [facility]. Shallow water up to neck level is preference. No pain pills since 2006. Treatment Goals Patient/Caregiver Goals Pain relief, improved tolerance to activity Prior Functional Status Baseline Function- ADL's Independent Baseline Function- Mobility Independent Baseline Function- Gait no device Baseline Function- Work/School able to work, do yardwork Current Functional Impairments (Reported) Functional Limitations- ADL's All activity causes pain; assist of for dressing, bathing Functional Limitations- Mobility/Gait Requires 4WW for any community distances Functional Limitations- Work/School unable Personal Factors Other Personal Factors That May Effect depression Therapy/Recovery PT-OP-C Subjective Start: 04/09/18 09:02 Freq: Status: Active Protocol: Document 09/13/18 16:[address] [facility] (Rec: 09/13/18 16:[address] [facility] [id number]) OP-PT Subjective Patient Comments Patient Comments Pt reports his pain has increased since last aquatic therapy. States he won't go to [facility] to continue HEP: I didn't like the looks of that place. Wants to be able to continue aquatic PT. Patient Questionnaires Oswestry Low Back Index Oswestry Score 66 Oswestry Impairment 60 to 79% Impaired (Score 60- 79) OP-PT Pain Assessment Pain Assessment Grid Paper Pain Assessment Grid Completed Yes Location Generalized Pain Location Details bilateral c/s, shld, and l/s; fuad UE, fuad LE Intensity 7 Scale Used Numeric (1 - 10) Description Aching Burning Chronic Pressure Radiating Sharp Shooting Spasm Throbbing With Movement Radiating Location fuad UE and LE Pain Aggravating Factors Changing Position ADL's Activity Exercise Standing Sitting Walking Bending Lifting Pain Alleviating Factors Aqua Therapy Pain Behaviors Pain Behaviors Facial Grimacing Guarding Wincing Comments Pain Comments see pain diagram in paper chart PT-OP-E Functional Tests Start: 04/09/18 09:02 Freq: Status: Active Protocol: Document 04/09/18 09:[address] [facility] (Rec: 04/13/18 10:[address] [facility] [id number]) Functional Tests Apley's Scratch Test Action 1: The subject is instructed to touch the opposite shoulder with his/her hand. This motion checks Glenohumeral adduction, internal rotation , horizontal adduction and scapular protraction Action 2: The subject is instructed to place his/her arm overhead and reach behind the neck to touch his/her upper back. This motion checks Glenohumeral abduction, external rotation and scapular upward rotation and elevation. Action 3: The subject puts his/her hand on the lower back and reaches upward as far as possible. This motion checks glenohumeral adduction, internal rotation and scapular retraction with downward rotation Action 1- Left front of chest Action 1- Right front of chest Action 2- Left side of neck Action 2- Right side of neck Action 3- Left side of hip Action 3- Right side of hip PT-OP-F Manual Assessment Start: 04/09/18 09:02 Freq: Status: Active Protocol: Document 09/13/18 16:[address] [facility] (Rec: 09/13/18 16:[address] [facility] [id number]) Manual Assessments Soft Tissue Assessment Soft Tissue Mobility Assessment palpable tightness throughout paraspinals, buttocks, hamstrings PT-OP-G Mobility & Gait Start: 04/09/18 09:02 Freq: Status: Active Protocol: Document 04/09/18 09:[address] [facility] (Rec: 04/13/18 10:[address] [facility] [id number]) OP Mobility Evaluation Bed Mobility Rolling independent but painful Supine to and from Sit independent but painful Functional Movements Squats painful Other Functional Movements Unable to reach overhead or behind his back due to pain OP Gait Assessment Gait Gait Assistance Required: Independent Gait Deviations General Gait Pattern Wide Based Gait Comments Gait Comments slow, guarded, antalgic PT-OP-H Neuro Start: 04/09/18 09:02 Freq: Status: Active Protocol: Document 04/09/18 05:[address] [facility] (Rec: 04/13/18 10:[address] [facility] [id number]) Sensation Evaluation Gross Sensation Gross Sensation Left UE Impaired Right UE Impaired Left LE Impaired Right LE Impaired PT-OP-K Range of Motion Start: 04/09/18 09:02 Freq: Status: Active Protocol: Document 09/13/18 16:[address] [facility] (Rec: 09/13/18 16:[address] [facility] [id number]) Cervical Spine Range of Motion Cervical Spine Active Testing Position Sitting ROM Limitations Pain Comments moderately limited all motions due to pain Lumbar Spine Range of Motion Lumbar Spine Active ROM Limitations Pain Comments Moderately limited all motions due to pain Shoulder Goniometric Range of Motion Shoulder Measured in Degrees Left Shoulder ROM WFL No Right Shoulder ROM WFL No Shoulder ROM Limitations Shoulder ROM Limitations Muscle Weakness Pain Comments Unable to reach overhead or behind his back due to pain bilaterally Hip Goniometric Range of Motion Hip ROM Limitations Hip ROM Limitations Pain Comments moderately decreased due to pain bilaterally Knee Goniometric Range of Motion Knee ROM Limitations Comments WNL fuad Ankle and Foot Goniometric Range of Motion Ankle and Foot ROM Limitations Comments WFL fuad PT-OP-T Assessment and Plan Start: 04/13/18 10:13 Freq: Status: Active Protocol: Document 09/13/18 16:[address] [facility] (Rec: 09/13/18 16:[address] [facility] [id number]) Physical Therapy Assessment Goals Five Impairment activity intolerance Short Term Goal (STG) Patient able to tolerate 30-45 min aquatic exercise program without excess fatigue or pain (goal met) Senior Living Goal (LTG) Patient to be safe and independent in a 45 min aquatic exercise program for long-term pain managment and fitness (goal progress) LTG Duration 1 month Four Impairment ROM Creative Strategist Goal (LTG) Improve ROM in neck, shoulders , spine, and hips to WFL with minimal to no pain including ability to reach overhead and behind his back so he can be independent with bathing and dressing. ( goal progress) LTG Duration 1 month Three Impairment activity tolerance/functional mobility: Oswestry Disability Index 76% Short Term Goal (STG) Decrease Oswestry score to 60% (goal met; 58% on 07/09/18, increased without aquatic PT for 6 wks to 66%) Creative Strategist Goal (LTG) Decrease Oswestry score to no greater than 55% (goal progress) LTG Duration 1 month Two Impairment activity tolerance: neck disability index 68% Short Term Goal (STG) Decrease neck disability index score to 55% (goal progress) Senior Living Goal (LTG) Decrease neck disability index score to no greater than 40% LTG Duration 1 month One Impairment Pain 8-9/10 Short Term Goal (STG) Decrease pain to no greater than 7/10 (goal met) Creative Strategist Goal (LTG) Decrease pain to no greater than 4/10 LTG Duration 1 month Progress Towards Goals Progress Comments Patient reporting an increase in pain, decrease in function since last seen in aquatic therapy, has been unable to come to the pool on his own he reports for financial reasons . Assessment Summary Assessment Long discussion with AC about our need to transition him to an independent aquatic exercise program soon; he frequently wants to do his own activity vs what the therapist recommends for him. He is reluctant to discuss discharge; will need to discuss further at next session. Physical Therapy Plan Frequency and Duration Frequency of Treatment 1x/wk Duration of Treatment 1 month Plan of Care Start Date 09/13/18 Plan of Care End Date 11/14/17 Therapeutic Interventions Therapeutic Interventions Aquatic Therapy Home Exercise Program Patient/Caregiver Education Next Visit Focus/Plan Next Note Type Treatment Note Next Visit Plan Progression of aquatic exercises as tolerated, further discussion of POC as we work to transition AC to independent aquatic exercise program for residential pain management and fitness.
--- NOTE | 2018-09-13 16:53 | PT.OPPOC ---
Current Diagnoses Spinal stenosis, cervical region (09/13/18) Provider Visit Care Team Role Provider Type Yin Vásquez MD Family Provider Non-Staff Primary Care Provider Specialty: Medical Address: [address] [place] [address], [id number] Email: Gaurang Sam MD Attending Provider Physician Specialty: Orthopedic Surgery Address: [address] [place] [address], [id number] Email: [email or web address] Plan Of Care PT-OP-T Assessment and Plan Start: 04/13/18 10:13 Freq: Status: Active Protocol: Document 09/13/18 16:27 [facility] (Rec: 09/13/18 16:51 [facility] [id number]) Physical Therapy Assessment Goals Five Impairment activity intolerance Short Term Goal (STG) Patient able to tolerate 30-45 min aquatic exercise program without excess fatigue or pain (goal met) Curber Goal (LTG) Patient to be safe and independent in a 45 min aquatic exercise program for long-term pain managment and fitness (goal progress) LTG Duration 1 month Four Impairment ROM Curber Goal (LTG) Improve ROM in neck, shoulders , spine, and hips to WFL with minimal to no pain including ability to reach overhead and behind his back so he can be independent with bathing and dressing. ( goal progress) LTG Duration 1 month Three Impairment activity tolerance/functional mobility: Oswestry Disability Index 76% Short Term Goal (STG) Decrease Oswestry score to 60% (goal met; 58% on 07/09/18, increased without aquatic PT for 6 wks to 66%) Curber Goal (LTG) Decrease Oswestry score to no greater than 55% (goal progress) LTG Duration 1 month Two Impairment activity tolerance: neck disability index 68% Short Term Goal (STG) Decrease neck disability index score to 55% (goal progress) Curber Goal (LTG) Decrease neck disability index score to no greater than 40% LTG Duration 1 month One Impairment Pain 8-9/10 Short Term Goal (STG) Decrease pain to no greater than 7/10 (goal met) Curber Goal (LTG) Decrease pain to no greater than 4/10 LTG Duration 1 month Progress Towards Goals Progress Comments Patient reporting an increase in pain, decrease in function since last seen in aquatic therapy, has been unable to come to the pool on his own he reports for financial reasons . Assessment Summary Assessment Long discussion with AC about our need to transition him to an independent aquatic exercise program soon; he frequently wants to do his own activity vs what the therapist recommends for him. He is reluctant to discuss discharge; will need to discuss further at next session. Physical Therapy Plan Frequency and Duration Frequency of Treatment 1x/wk Duration of Treatment 1 month Plan of Care Start Date 09/13/18 Plan of Care End Date 11/14/17 Therapeutic Interventions Therapeutic Interventions Aquatic Therapy Home Exercise Program Patient/Caregiver Education Next Visit Focus/Plan Next Note Type Treatment Note Next Visit Plan Progression of aquatic exercises as tolerated, further discussion of POC as we work to transition AC to independent aquatic exercise program for prison pain management and fitness. Plan of Care Dates Plan of Care Start Date 09/13/18 Plan of Care End Date 11/14/17 Please Sign and Return: I have reviewed this Plan of Care and certify that the skilled therapy services above are required to meet the patient?s needs. Physician Signature Date Printed Name and Credentials Clinical Instructor Signature Printed Name and Credentials
--- NOTE | 2018-09-20 14:20 | PT.OTN ---
Current Diagnoses Spinal stenosis, cervical region (09/20/18) Physical Therapy Treatment Note PT-OP-A Visit Information Start: 04/09/18 09:02 Freq: Status: Active Protocol: Document 09/20/18 11:45 [facility] (Rec: 09/20/18 14:20 [facility] [id number]) Out-Patient Physical Therapy Visit Information Visit Information Visit Type Aquatic Treatment Note Visit Start Time 11:45 Visit Stop Time 12:30 Visit Number 21 Number of UNIT COORDINATOR Visits 1 PT-OP-B Current Condition Start: 04/09/18 09:02 Freq: Status: Active Protocol: Document 04/09/18 09:05 [facility] (Rec: 04/09/18 09:23 [facility] [id number]) Current Condition History of Current Condition Onset Date 30-40 yrs History of Current Condition Patient c/o constant pain, . Pinched nerves in neck causing pain into UEs, injection 03/29/18; pain better in right, but now has constant pain left. LBP L2 and L4 pinched nerves; left LE with burning and throbbing pain along entire outside of LE; injection planned for 04/19. 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 Unable to drive more than 15 minutes unless has heated seats then can last 1- 1 1/2 hrs. 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 States after doing any physical activities is often down for several days due to pain. and [id number] and daughter assist patient. Biggest goal is pain relief. PMH includes stage 4 kidney failure, CHF, HTN, diabetic polyneuropathy, DM. Patient has been referred for aquatic therapy Prior Treatments and Tests chiropractor, massage therapy, accupunture, shots, H-wave. Prior aquatic therapy at [place] helpful. Shallow water up to neck level is preference. No pain pills since 2006. Treatment Goals Patient/Caregiver Goals Pain relief, improved tolerance to activity Prior Functional Status Baseline Function- ADL's Independent Baseline Function- Mobility Independent Baseline Function- Gait no device Baseline Function- Work/School able to work, do yardwork Current Functional Impairments (Reported) Functional Limitations- ADL's All activity causes pain; assist of for dressing, bathing Functional Limitations- Mobility/Gait Requires 4WW for any community distances Functional Limitations- Work/School unable Personal Factors Other Personal Factors That May Effect depression Therapy/Recovery PT-OP-C Subjective Start: 04/09/18 09:02 Freq: Status: Active Protocol: Document 09/20/18 11:45 [facility] (Rec: 09/20/18 14:20 [facility] [id number]) OP-PT Subjective Patient Comments Patient Comments Pt feeling increase in pain and fatigue due to not sleeping well last night due to cramps in hands, feet and shoulders. PT-OP-E Functional Tests Start: 04/09/18 09:02 Freq: Status: Active Protocol: Document 04/09/18 09:05 [facility] (Rec: 04/13/18 10:13 [facility] [id number]) Functional Tests Apley's Scratch Test Action 1: The subject is instructed to touch the opposite shoulder with his/her hand. This motion checks Glenohumeral adduction, internal rotation , horizontal adduction and scapular protraction Action 2: The subject is instructed to place his/her arm overhead and reach behind the neck to touch his/her upper back. This motion checks Glenohumeral abduction, external rotation and scapular upward rotation and elevation. Action 3: The subject puts his/her hand on the lower back and reaches upward as far as possible. This motion checks glenohumeral adduction, internal rotation and scapular retraction with downward rotation Action 1- Left front of chest Action 1- Right front of chest Action 2- Left side of neck Action 2- Right side of neck Action 3- Left side of hip Action 3- Right side of hip PT-OP-F Manual Assessment Start: 04/09/18 09:02 Freq: Status: Active Protocol: Document 09/13/18 16:27 [facility] (Rec: 09/13/18 16:51 [facility] [id number]) Manual Assessments Soft Tissue Assessment Soft Tissue Mobility Assessment palpable tightness throughout paraspinals, buttocks, hamstrings PT-OP-G Mobility & Gait Start: 04/09/18 09:02 Freq: Status: Active Protocol: Document 04/09/18 09:05 [facility] (Rec: 04/13/18 10:13 [facility] [id number]) OP Mobility Evaluation Bed Mobility Rolling independent but painful Supine to and from Sit independent but painful Functional Movements Squats painful Other Functional Movements Unable to reach overhead or behind his back due to pain OP Gait Assessment Gait Gait Assistance Required: Independent Gait Deviations General Gait Pattern Wide Based Gait Comments Gait Comments slow, guarded, antalgic PT-OP-H Neuro Start: 04/09/18 09:02 Freq: Status: Active Protocol: Document 04/09/18 05:14 [facility] (Rec: 04/13/18 10:24 [facility] [id number]) Sensation Evaluation Gross Sensation Gross Sensation Left UE Impaired Right UE Impaired Left LE Impaired Right LE Impaired PT-OP-K Range of Motion Start: 04/09/18 09:02 Freq: Status: Active Protocol: Document 09/13/18 16:27 [facility] (Rec: 09/13/18 16:51 [facility] [id number]) Cervical Spine Range of Motion Cervical Spine Active Testing Position Sitting ROM Limitations Pain Comments moderately limited all motions due to pain Lumbar Spine Range of Motion Lumbar Spine Active ROM Limitations Pain Comments Moderately limited all motions due to pain Shoulder Goniometric Range of Motion Shoulder Measured in Degrees Left Shoulder ROM WFL No Right Shoulder ROM WFL No Shoulder ROM Limitations Shoulder ROM Limitations Muscle Weakness Pain Comments Unable to reach overhead or behind his back due to pain bilaterally Hip Goniometric Range of Motion Hip ROM Limitations Hip ROM Limitations Pain Comments moderately decreased due to pain bilaterally Knee Goniometric Range of Motion Knee ROM Limitations Comments WNL fuad Ankle and Foot Goniometric Range of Motion Ankle and Foot ROM Limitations Comments WFL fuad PT-OP-S Aquatic Treatment Start: 04/13/18 10:13 Freq: Status: Active Protocol: Document 09/20/18 11:45 [facility] (Rec: 09/20/18 14:20 [facility] [id number]) Aquatics Treatment Pool Entry/Exit Pool Entry/Exit Method Stairs Assistance Independent Water Walking [place] March Water Level Chest Level Walking Equipment Resistance Fins Marching Water Level Chest Level Walking Equipment Resistance Fins Level of Assistance Standby Assistance Sideways Water Level Chest Level Walking Equipment Resistance Fins Level of Assistance Standby Assistance Comments Horizontal ab/add of arms Forwards Water Level Chest Level Walking Equipment Resistance Fins Level of Assistance Standby Assistance Lower Extremity Exercises squats Details mini Body Position Standing Water Level Chest Level Equipment Resistance Fins Reps/Duration 1 min Comments maintain full back against wall 1 Details Hip flexion/ext, Hip AB, circles Body Position Standing Water Level Chest Level Equipment Resistance Fins Reps/Duration 10 Comments c/o pain; stopped to stretch Lower Extremity Stretches 3 Details Single knee to chest Body Position Standing Reps/Duration 1 min bilat Comments therapist assist 2 Details quad Body Position Standing Water Level Chest Level Reps/Duration against wall Comments stopped d/t cramping 1 Details Hamstring Body Position Standing Equipment 3 min Reps/Duration foot resting on therapist knee Comments no complaints Upper Extremity Exercises 1 Details Shoulder Hor.AB/AD, flexion/ ext Body Position Standing Water Level Chest Level Equipment UE paddles Reps/Duration x 10 Comments cues for core stabilization [place] Activities [place] Activities Bicycle [place] Hip Abduction/Adduction Equipment black neck float, waist belt, black arm floats PT-OP-T Assessment and Plan Start: 04/13/18 10:13 Freq: Status: Active Protocol: Document 09/20/18 11:45 [facility] (Rec: 09/20/18 14:20 [facility] [id number]) Physical Therapy Assessment Goals Five Impairment activity intolerance Short Term Goal (STG) Patient able to tolerate 30-45 min aquatic exercise program without excess fatigue or pain (goal met) Kids Activities Coach Goal (LTG) Patient to be safe and independent in a 45 min aquatic exercise program for long-term pain managment and fitness (goal progress) LTG Duration 1 month Four Impairment ROM Kids Activities Coach Goal (LTG) Improve ROM in neck, shoulders , spine, and hips to WFL with minimal to no pain including ability to reach overhead and behind his back so he can be independent with bathing and dressing. ( goal progress) LTG Duration 1 month Three Impairment activity tolerance/functional mobility: Oswestry Disability Index 76% Short Term Goal (STG) Decrease Oswestry score to 60% (goal met; 58% on 07/09/18, increased without aquatic PT for 6 wks to 66%) Kids Activities Coach Goal (LTG) Decrease Oswestry score to no greater than 55% (goal progress) LTG Duration 1 month Two Impairment activity tolerance: neck disability index 68% Short Term Goal (STG) Decrease neck disability index score to 55% (goal progress) Kids Activities Coach Goal (LTG) Decrease neck disability index score to no greater than 40% LTG Duration 1 month One Impairment Pain 8-9/10 Short Term Goal (STG) Decrease pain to no greater than 7/10 (goal met) Longterm Goal (LTG) Decrease pain to no greater than 4/10 LTG Duration 1 month Assessment Summary Assessment Pt c/o additional stiffness of RUE. Pt did well today and performed all therapeutic activities that were directed by the UNIT COORDINATOR. Discussed with pt transition to independent therapy and he stated after the new year he would like to come to the pool three days a week for independent water activities. Pt was educated on pool equipment that is available to him and where to locate it on the pool deck. Physical Therapy Plan Frequency and Duration Frequency of Treatment 1x/wk Duration of Treatment 1 month Plan of Care Start Date 09/13/18 Plan of Care End Date 11/14/17 Next Visit Focus/Plan Next Visit Plan Progression of aquatic exercises as tolerated, further discussion of POC as we work to transition AC to independent aquatic exercise program for assisted pain management and fitness.
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
== END 2019-04-19 10:21 ==
LOC: PHYS 11:45
PROVIDERS: Family Provider Internal Medicine; PCP Internal Medicine; Visit Provider Orthopaedic Surgery
DX: M48.02 Spinal stenosis, cervical region (principal)
CPT/HCPCS: 97113; 97163

== ENCOUNTER 2018-11-14 00:38 | Emergency (ER) | payer OTHER, MEDICARE, SELFPAY ==
--- NOTE | 2018-11-14 00:39 | ED.DIZZY ---
HPI - Dizziness General Chief Complaint: Dizziness Stated Complaint: Dizziness Time Seen by Provider: 11/14/18 00:39 Source: patient Mode of arrival: EMS Limitations: no limitations History of Present Illness HPI Narrative: 68-year-old male brought in by EMS after he had an episode at home where he became lightheaded and felt like he was going to fall over to the right. He had no other associated symptoms. He states he was sitting on the couch when he stood up and had the symptoms. He is a insulin-dependent diabetic and took his blood sugar and it was greater than 150. He denied any palpitations or chest pain at the time. He was recently diagnosed with a right ear infection. He is currently on antibiotic drops for this. He does not know whether it was a otitis externa or otitis media. States that he feels like his mouth is very dry. Related Data Home Medications Medication Instructions Recorded Confirmed carvedilol [Coreg] 12.5 mg PO BID #0 04/30/13 05/09/18 polyethylene glycol 3350 [Miralax] 17 gm PO QDAYP #0 04/30/13 allopurinol #0 04/16/17 amlodipine [Norvasc] 10 mg PO QDAY #0 04/16/17 05/09/18 bumetanide 6 mg PO DAILY #0 04/16/17 05/09/18 dexlansoprazole [Dexilant] 60 mg PO DAILY #0 04/16/17 05/09/18 diclofenac sodium [Voltaren] 1 tj TOPICAL BID #0 04/16/17 05/09/18 doxazosin [Cardura] 8 mg PO #0 04/16/17 fexofenadine #0 04/16/17 insulin aspart U-100 [Novolog 30 unit SQ TIDCC #0 04/16/17 Flexpen U-100 Insulin] insulin glargine [Lantus Solostar 60 unit SQ QPM #0 04/16/17 U-100 Insulin] oxybutynin chloride 5 mg PO BID #0 04/16/17 sildenafil [Viagra] 100 mg PO PRN PRN #0 04/16/17 Colace 05/09/18 flaxseed 05/09/18 Previous Rx's Medication Instructions Recorded [id number] 4 drop EAR-RIGHT Q6H 7 Days #10 ml 11/14/18 Allergies Allergy/AdvReac Type Severity Reaction Status Date / Time No Known Drug Allergies Allergy Verified 05/09/18 09:17 Review of Systems Constitutional Denies fever(s), Denies frequent falls, Denies headache(s) and Denies weakness Eyes Denies blurry vision, Denies change in vision and Denies diplopia ENT Ears, Nose, Mouth, and Throat: Denies vertigo, Reports dizziness, Denies ear discharge, Denies headache(s), Reports disequilibrium, Denies sore throat and Denies throat swelling Cardiovascular Denies chest pain, Denies syncope, Denies edema, Denies palpitations, Denies dyspnea and Denies dyspnea on exertion Respiratory Denies dyspnea, Denies dyspnea on exertion and Denies wheezing Gastrointestinal Gastrointestinal: Denies abdominal pain, Denies change in stool character, Denies nausea and Denies vomiting Musculoskeletal Denies myalgias and Denies arthralgias Integumentary/Breasts Denies rash Neurologic Denies vertigo, Reports dizziness, Denies syncope, Denies frequent falls, Denies headache(s), Denies memory loss, Denies paresthesias, Denies tremor(s), Reports disequilibrium and Denies weakness Psychiatric Denies memory loss Endocrine Denies palpitations Hematologic/Lymphatic Comments: Not on anticoagulation Allergic/Immunologic Denies throat swelling and Denies wheezing PFSH Medical History Constipation (Acute) GERD (gastroesophageal reflux disease) (Acute) HTN (hypertension) (Acute) Heart failure (Acute) Hypercholesteremia (Acute) Knee pain (Acute) Renal disease (Acute) Social History marital status: lives independently: Yes Smoking Status: Former smoker Social History marital status: lives independently: Yes Smoking Status: Former smoker Exam Initial Vital Signs Initial Vital Signs: Vital Signs Temperature 97.8 F 11/14/18 00:40 Pulse Rate 72 11/14/18 00:40 Respiratory Rate 18 11/14/18 00:40 Blood Pressure 130/62 11/14/18 00:40 Pulse Oximetry 98 11/14/18 00:40 Const General: cooperative, comfortable, well developed, well groomed and No acute distress Orientation: alert, awake and oriented x3 HENMT Head: normal to inspection and normocephalic Ears: TM normal on the right, TM normal on the left and EAC's not normal (Right external auditory canal somewhat red) Eyes Pupils: PERRL EOM: EOM intact bilaterally Resp Effort & Inspection: normal respiratory effort Auscultation: clear to auscultation bilaterally Cardio Rate: regular rate Rhythm: regular rhythm Pulses: radial pulses present Skin Lesions: no lesions Rashes: no rashes Neuro General: alert, awake and oriented x3 Cranial Nerves: CN's II-XI intact bilaterally Cognition: normal cognition Speech: speech normal Motor: muscle tone normal throughout Sensory Exam: no sensory deficits noted Extrem General: normal to inspection and capillary refill normal Psych Appearance: grossly normal and well kempt Course Orders Ordered: ED Orders 11/14/18 00:38 EKG-12 Lead Stat 11/14/18 00:57 Basic Metabolic Panel Stat Complete Blood Count AUTO DIFF Stat 11/14/18 01:08 CT head/brain wo con Stat Sodium Chloride (Normal Saline 0.9%) 1,000 mls @ 150 mls/hr IV CONT ORLY Last Admin: 11/14/18 02:20 Dose: 150 mls/hr Vital Signs - 8 hr 11/14/18 00:40 11/14/18 01:00 Temperature 97.8 F Pulse Rate 72 83 Respiratory Rate 18 23 Blood Pressure 130/62 Blood Pressure [Right Arm] 125/54 L Pulse Oximetry 98 96 MDM - Dizziness Lab Data Attestation: I reviewed the patient's lab results. Result diagrams: 11/14/18 00:57 11/14/18 00:57 Lab Results 11/14/18 11/14/18 Range/Units 00:57 00:57 WBC 4.1 L (4.5-11.0) X10^3/uL RBC 4.32 L (4.5-5.9) X10^6/uL Hgb 12.6 L (13.5-17.5) g/dL Hct 37.5 L (41-53) % MCV 86.7 (80-100) fL MCH 29.2 (26-34) PG MCHC 33.7 (30-36) % RDW 15.1 H (11.6-14.8) % Plt Count 153 (150-400) X10^3/uL Neut % (Auto) 46.4 L (50-75) % Lymph % (Auto) 38.9 (25-40) % [place] % (Auto) 10.3 (3-14) % Eos % (Auto) 3.4 (2-4) % Baso % (Auto) 1.0 (0-2) % Neut # (Auto) 1900 (4905-8994) /uL Lymph # (Auto) 1600 (6129-0595) /uL [place] # (Auto) 400 (0-900) /uL Eos # (Auto) 100 (0-450) /uL Baso # (Auto) 0 (0-100) /uL Sodium 138 (137-145) mmol/L Potassium 3.6 (3.4-5.1) mmol/L Chloride 97 L (98-107) mmol/L Carbon Dioxide 29 (22-32) mmol/L BUN 34 H (9-20) mg/dL Creatinine 2.30 H (0.66-1.25) mg/dL Estimated GFR 28.6 L (>60) mL/min BUN/Creatinine Ratio 14.8 (6-22) Glucose 171 H (80-110) mg/dL Calcium 9.5 (8.4-10.2) mg/dL Imaging Data CT scan - head: Radiologist's impression: Negative, age-appropriate unenhanced head CT. ECG Data Attestation: I personally reviewed and interpreted this ECG as follows: Prior ECG tracings: not available for review Interpretation: Sinus rhythm Ventricular rate is 67 QRS 125 milliseconds Normal QTC Nonspecific ST T wave abnormalities MDM Narrative Medical decision making narrative: Patient able to ambulate here in the emergency department. He states that he does still feel like he wants to fall off to the right but he states that it is much better than what it was earlier today. His creatinine was a little elevated. He states that his creatinine fluctuates between 1.5 in 2.3. He does have a kidney doctor. His electrolytes are unremarkable. His head CT is unremarkable. He has a normal neurologic exam. Will hold on further workup for now. It does appear that he is being treated for an otitis externa and his exam is consistent with that. Symptoms could very well be related to his otitis externa. Doubt CVA. Patient was given return precautions. He expressed understanding and agreement plan. Discharge Plan Departure Patient Disposition: Home Clinical Impression: Dizziness Otitis externa Qualifiers: Otitis externa type: unspecified type Chronicity: acute Laterality: right Qualified Code(s): H60.501 - Unspecified acute noninfective otitis externa, right ear Instructions: DI for Otitis Externa, DI for Dizziness-Nonvertigo Activity Restrictions/Additional Instructions: I recommend that you contact your primary care doctor also your kidney doctor. Take the medication as directed. Return to the emergency department for any new or worsening symptoms. Prescriptions: New qvqiwvqs-aeepjmurj-KX 3.5-10,000-1 mg/mL-unit/mL-% drops,suspension 4 drop EAR-RIGHT Q6H 7 Days Qty: 10 RF: 0 No Action carvedilol [Coreg] 3.125 MG tablet 12.5 mg PO BID Qty: 0 RF: 0 polyethylene glycol 3350 [Miralax] 119 GM powder 17 gm PO QDAYP Qty: 0 RF: 0 insulin aspart U-100 [Novolog Flexpen U-100 Insulin] 100 UNIT/1 ML insulin pen 30 unit SQ TIDCC Qty: 0 RF: 0 diclofenac sodium [Voltaren] 1 % gel 1 tj Topical BID Qty: 0 RF: 0 dexlansoprazole [Dexilant] 60 MG capsule,biphase delayed releas 60 mg PO DAILY Qty: 0 RF: 0 insulin glargine [Lantus Solostar U-100 Insulin] 100 UNIT/1 ML insulin pen 60 unit SQ QPM Qty: 0 RF: 0 oxybutynin chloride 5 MG tablet 5 mg PO BID Qty: 0 RF: 0 bumetanide 1 MG tablet 6 mg PO DAILY Qty: 0 RF: 0 amlodipine [Norvasc] 5 MG tablet 10 mg PO QDAY Qty: 0 RF: 0 sildenafil [Viagra] 100 MG tablet 100 mg PO PRN PRN (Reason: Sexual Activity) Qty: 0 RF: 0 allopurinol 300 MG tablet Qty: 0 RF: 0 fexofenadine 180 MG tablet Qty: 0 RF: 0 doxazosin [Cardura] 8 MG tablet 8 mg PO Qty: 0 RF: 0 Colace RF: 0 flaxseed RF: 0
[2018-11-14 00:40] VITALS: BP 130/62; PULSE 72; RESP 18; TEMP 36.6; O2SAT 98; BMI 37.3
[2018-11-14 01:00] VITALS: BP 125/54; PULSE 83; RESP 23; O2SAT 96
[2018-11-14 01:06] LABS: Add Manual Diff / Slide Review NO; Basophils Absolute Auto 0 /uL (0-100); Eosinophils Absolute Auto 100 /uL (0-450); Eosinophils Percent Auto 3.4 % (2-4); Hematocrit 37.5 % (41-53); Hemoglobin 12.6 g/dL (13.5-17.5); Lymphocytes Absolute Auto 1600 /uL (1100-4500); Lymphocytes Percent Auto 38.9 % (25-40); Mean Corpuscular HGB Conc 33.7 % (30-36); Mean Corpuscular Hemoglobin 29.2 PG (26-34); Mean Corpuscular Volume 86.7 fL (80-100); Monocytes Absolute Auto 400 /uL (0-900); Monocytes Percent Auto 10.3 % (3-14); Neutrophils Absolute Auto 1900 /uL (1500-7000); Neutrophils Percent Auto 46.4 % (50-75); Platelet Count 153 X10^3/uL (150-400); Red Blood Cell Count 4.32 X10^6/uL (4.5-5.9); Red Cell Distribution Width 15.1 % (11.6-14.8); White Blood Cell Count 4.1 X10^3/uL (4.5-11.0)
--- NOTE | 2018-11-14 01:08 | DI.CT.S_ITS ---
PROCEDURE: CT HEAD/BRAIN WO CON INDICATIONS: Lightheadedness TECHNIQUE: Noncontrast 4.5 mm thick angled axial sections acquired from the foramen magnum to the vertex, with coronal and sagittal reformats. For radiation dose reduction, the following was used: automated exposure control, adjustment of mA and/or kV according to patient size. COMPARISON: None. FINDINGS: Image quality: Excellent. CSF spaces: Basal cisterns are patent. No extra-axial fluid collections. The ventricles are symmetric in size and shape. Brain: No intracranial bleeds or masses. There is cerebral volume loss for age, with resultant ventricular and sulcal prominence. There are periventricular and deep white matter chronic small vessel ischemic changes. There is intracranial internal carotid artery atherosclerosis. Skull and face: Calvarium and visualized facial bones appear intact, without suspicious lesions. Possible scalp contusion or edema seen in the right posterior region on image 24 series 2. Sinuses: Visualized sinuses and mastoids are clear. IMPRESSION: Nonspecific right posterior scalp soft tissue changes potentially low-grade edema or hematoma. This finding is technically age-indeterminate. Recommend clinical correlation. No acute intracranial process. Dictated by: Jay Churchill M.D. on 11/14/2018 at 7:58 Approved by: Jay Churchill M.D. on 11/14/2018 at 8:00
[2018-11-14 01:20] LABS: BUN Creatinine Ratio 14.8 (6-22); Blood Urea Nitrogen 34 mg/dL (9-20); Calcium 9.5 mg/dL (8.4-10.2); Carbon Dioxide 29 mmol/L (22-32); Chloride 97 mmol/L (98-107); Estimated Glomerular Filt Rate 28.6 mL/min (>60); Glucose 171 mg/dL (80-110); HEMOLYSIS < 15 (0-50); Potassium 3.6 mmol/L (3.4-5.1); Sodium 138 mmol/L (137-145)
[2018-11-14] MEDS: SODIUM CHLORIDE 0.9% 1,000 ML 150 ML IV (02:20)
[2018-11-14 03:26] VITALS: BP 105/56; PULSE 82; RESP 23; O2SAT 97
== END 2018-11-14 03:26 | disposition home or self-care (01) ==
PROVIDERS: Emergency Provider Emergency Medicine
DX: H60.501 Unspecified acute noninfective otitis externa, right ear (principal); R42 Dizziness and giddiness
CPT/HCPCS: 36415; 70450; 80048; 85025; 93005; 96360; 99283; 99285

== ENCOUNTER 2019-03-24 09:08 | Emergency (ER) | payer MEDICARE, OTHER, SELFPAY ==
[2019-03-24 09:08] VITALS: PULSE 87; RESP 22; O2SAT 99; BMI 38.8
--- NOTE | 2019-03-24 09:21 | ED.FALL ---
HPI - Fall General Chief Complaint: Fall Stated Complaint: fell on left side, shoulder/neck/head Time Seen by Provider: 03/24/19 09:14 Source: patient and family Mode of arrival: ambulatory Limitations: no limitations History of Present Illness HPI Narrative: This is a 68-year-old male comes to the emergency department with complaint of ground level fall. Patient states that he was taking his trash out when he tripped and fell. Patient landed on his left side. He felt like he had some swelling left side of his face and then the right. He thinks he may have lost consciousness. It was not a witnessed fall so it is unclear exactly how long. Patient is complaining of pain in his left shoulder and tingling over the upper left back/neck. Patient denies any current headache he denies any vision changes. No nausea, no vomiting, no other GI or urinary symptoms. Patient is not having any chest pain shortness of breath. He denies any other tingling, numbness or weakness in his extremities. He drove himself to significant other's house, then he was driven here by his significant other. The event happened about an hour prior to arrival. Related Data Home Medications Medication Instructions Recorded Confirmed polyethylene glycol 3350 [Miralax] 17 gm PO QDAYP #0 04/30/13 03/24/19 Lantus Solostar U-100 Insulin 60 unit SQ BEDTIME #0 04/16/17 03/24/19 allopurinol 300 mg PO DAILY #0 04/16/17 03/24/19 diclofenac sodium [Voltaren] 1 tj TOPICAL BID #0 04/16/17 03/24/19 doxazosin [Cardura] 8 mg PO BEDTIME #0 04/16/17 03/24/19 oxybutynin chloride 5 mg PO BID #0 04/16/17 03/24/19 sildenafil [Viagra] 100 mg PO PRN PRN #0 MDD 100 mg 04/16/17 03/24/19 amlodipine 10 mg PO DAILY 03/24/19 03/24/19 artificial saliva (cmce-lytes) 1 spray PO PRN PRN 03/24/19 03/24/19 atorvastatin [Lipitor] 40 mg PO BEDTIME 03/24/19 03/24/19 bumetanide 6 mg PO BID 03/24/19 03/24/19 capsaicin 1 applic TOPICAL PRN PRN 03/24/19 03/24/19 carboxymethylcell-glycerin(PF) 1 applic OPHTHALMIC (EYE) QID 03/24/19 03/24/19 cholecalciferol (vitamin D3) 2,000 unit PO DAILY 03/24/19 03/24/19 dexlansoprazole [Dexilant] 60 mg PO DAILY 03/24/19 03/24/19 fexofenadine [Aller-ease] 180 mg PO DAILY 03/24/19 03/24/19 fluoride (sodium) [PreviDent 5000 1 applic DENTAL DIRECTED 03/24/19 03/24/19 Plus] glimepiride 4 mg PO BID 03/24/19 03/24/19 insulin aspart U-100 See Rx Instructions .ROUTE .COMPLEX 03/24/19 03/24/19 lisinopril 5 mg PO DAILY 03/24/19 03/24/19 losartan 100 mg PO DAILY 03/24/19 03/24/19 multivitamin with minerals 1 cap PO DAILY 03/24/19 03/24/19 pregabalin [Lyrica] 75 mg PO BID 03/24/19 03/24/19 sennosides-docusate sodium [Senna 1 tab PO DAILY 03/24/19 03/24/19 with Docusate Sodium] spironolactone 12.5 mg PO BID 03/24/19 03/24/19 tolterodine [Detrol LA] 4 mg PO DAILY 03/24/19 03/24/19 vitamin B complex 1 tab PO DAILY 03/24/19 03/24/19 Previous Rx's Medication Instructions Recorded oxycodone 5 mg PO Q4-6H PRN #20 tab 03/24/19 Allergies Allergy/AdvReac Type Severity Reaction Status Date / Time No Known Drug Allergies Allergy Verified 05/09/18 09:17 Review of Systems Review of Systems ROS Unobtainable: All systems reviewed & are unremarkable except as noted in HPI and below Constitutional Denies chills, Denies fever(s), Denies lethargy and Denies weakness Eyes Denies change in vision ENT Ears, Nose, Mouth, and Throat: Denies neck pain and Reports other (Swelling of face, face pain) Cardiovascular Denies chest pain, Denies irregular heart rhythm, Denies lightheadedness, Denies palpitations, Denies dyspnea and Denies orthopnea Respiratory Denies change in phlegm color, Denies chest congestion, Denies cough, Denies dyspnea and Denies wheezing Gastrointestinal Gastrointestinal: Denies abdominal pain, Denies change in bowel habits, Denies diarrhea, Denies nausea and Denies vomiting Genitourinary Denies hematuria, Denies flank pain, Denies urinary frequency and Denies urinary urgency Musculoskeletal Reports as per HPI, Denies abnormal gait, Denies back pain, Reports arthralgias (Left shoulder), Reports limited range of motion, Denies muscle weakness, Denies neck pain, Denies numbness, Reports radiating pain into limb (Left arm), Denies stiffness and Reports tingling (Upper neck) Integumentary/Breasts Denies rash and Reports wounds (Small cut on right knee, abrasion on left) Neurologic Denies abnormal gait, Denies numbness, Reports tingling (Upper neck) and Denies weakness Endocrine Denies palpitations Allergic/Immunologic Denies wheezing Exam Narrative Exam Narrative: GEN: C-collar in ED, Patient appears in moderate distress. HEAD: No evidence of trauma, no raccoon/Desai sign. NECK: Nontender, painless range of motion, trachea midline Positive for Nexus criteria, there is no mid line tenderness, positive for distracting injury, negative for altered mental status, neuro deficit, recent EtOH. EYES: PERRLA, EOMI ENT: External inspection normal, trachea is midline, TM's are normal no hemotypanum, Nares are clear, no septal hematoma, no dental or oral injury, airway is normal and with normal occlusion, No bony tenderness to palpation RESP: Chest is nontender and has symmetric movement, no ecchymosis, breath sounds are normal no crackles, wheezes or rales CVS: Heart sounds are normal, no murmur noted, No JVD. ABG/GI: Nontender, soft, normal bowel sounds, no distention, no organomegaly, pelvic rock is negative NEURO: Oriented AOx3, neuro is grossly intact, sensation and motor is normal all 4 extremities moving, cranial nerves II through XII are intact, GCS is 15 PSYCH: Normal mood and affect SKIN: Patient has small cut on the right knee that is less than 0.25cm slightly gapped, patient has abrasion the other knee., warm and dry, no crepitus and without decubitus BACK: No CVA tenderness, no vertebral tenderness, no step-off's, no crepitus EXT: Tenderness over the left shoulder, no obvious deformity. Patient does not have tenderness of the left elbow, forearm, wrist or hand any is normal range of motion of the hand and wrist. Patient prefers not to bend his elbow or move his shoulder. He has 2+ pulses bilaterally. With normal sensation in all 5 fingers and throughout the arm, hips are nontender, no pedal edema, normal color and temperature, normal range of motion of extremities with normal tendon exam, 2+ pulses in all four extremities. Patient ambulated in the room to the bed. Initial Vital Signs Initial Vital Signs: Vital Signs Pulse Rate 87 03/24/19 09:08 Respiratory Rate 22 03/24/19 09:08 Pulse Oximetry 99 03/24/19 09:08 Const General: cooperative and well developed Nutritional Appearance: well nourished Orientation: alert, awake, oriented x3 and not confused [facility] Medical History Constipation (Acute) GERD (gastroesophageal reflux disease) (Acute) HTN (hypertension) (Acute) Heart failure (Acute) Hypercholesteremia (Acute) Knee pain (Acute) Renal disease (Acute) Social History (Updated 11/14/18 @ 01:27 by Shaji Dunn DO) marital status: lives independently: Yes Smoking Status: Former smoker Social History marital status: lives independently: Yes Smoking Status: Former smoker Scores GCS Ron coma scale eye opening: Spontaneous Mclean coma scale verbal response: Orientated Mclean coma scale motor response: Obey commands Ron coma scale total score: 15 Course Orders Ordered: Discontinued Medications Hydromorphone HCl (Dilaudid) 0.5 mg IV NOW ONE Stop: 03/24/19 10:05 Last Admin: 03/24/19 10:07 Dose: 0.5 mg Hydromorphone HCl (Dilaudid) 1 mg IV NOW ONE Stop: 03/24/19 11:13 Last Admin: 03/24/19 11:37 Dose: 1 mg Morphine Sulfate (Morphine) 4 mg IV NOW ONE Stop: 03/24/19 09:22 Last Admin: 03/24/19 09:30 Dose: 4 mg Vital Signs - 8 hr 03/24/19 11:50 03/24/19 12:29 Pulse Rate 85 Respiratory Rate 19 Blood Pressure [Right Arm] 152/70 H Pulse Oximetry 83 L 98 MDM - Fall Lab Data Attestation: I reviewed the patient's lab results. Result diagrams: 03/24/19 09:30 03/24/19 09:30 Lab Results 03/24/19 03/24/19 03/24/19 Range/Units 09:30 09:30 09:30 WBC 5.2 (4.5-11.0) X10^3/uL RBC 4.90 (4.5-5.9) X10^6/uL Hgb 14.0 (13.5-17.5) g/dL Hct 41.7 (41-53) % MCV 85.1 (80-100) fL MCH 28.5 (26-34) PG MCHC 33.5 (30-36) % RDW 15.1 H (11.6-14.8) % Plt Count 165 (150-400) X10^3/uL Neut % (Auto) 72.6 (50-75) % Lymph % (Auto) 17.6 L (25-40) % [place] % (Auto) 6.4 (3-14) % Eos % (Auto) 2.5 (2-4) % Baso % (Auto) 0.9 (0-2) % Neut # (Auto) 3800 (6310-2202) /uL Lymph # (Auto) 900 L (8930-4185) /uL [place] # (Auto) 300 (0-900) /uL Eos # (Auto) 100 (0-450) /uL Baso # (Auto) 0 (0-100) /uL PT 11.3 (10.1-12.7) SECONDS INR 1.0 (0.9-1.3) APTT 30 D (26.4-36.2) SECONDS Sodium 139 (137-145) mmol/L Potassium 3.5 (3.4-5.1) mmol/L Chloride 99 (98-107) mmol/L Carbon Dioxide 28 (22-32) mmol/L BUN 24 H (9-20) mg/dL Creatinine 1.60 H (0.66-1.25) mg/dL Estimated GFR 43.5 L (>60) mL/min BUN/Creatinine Ratio 15.0 (6-22) Glucose 274 H (80-110) mg/dL Calcium 8.9 (8.4-10.2) mg/dL Total Bilirubin 0.7 (0.2-1.3) mg/dL AST 25 (17-59) IU/L ALT 28 (21-72) IU/L Alkaline Phosphatase 126 (38-126) U/L Total Protein 7.0 (6.3-8.2) g/dL Albumin 4.3 (3.5-5.0) g/dL Globulin 2.7 (1.7-4.1) g/dL Albumin/Globulin Ratio 1.6 (1.0-2.8) Ethyl Alcohol < 10 mg/dL Imaging Data Chest x-ray: Radiologist's impression: [address] [address] XRay Report Signed Patient: Khris Guaman CMR#: [id number] : 1950cct:[id number] Age/Sex: 68 / MDate of Service: 03/24/19 Loc: ED Accession Number: [id number] Procedure: XR chest 1V Ordering Provider: Ita Ramirez D.O. PROCEDURE: XR CHEST 1V INDICATIONS: fall, ? LOC< left shoulder pain TECHNIQUE: One view of the chest was acquired. COMPARISON: [facility], , XR CHEST 2V, 05/09/2018, 9:15. FINDINGS: Surgical changes and devices: None. Lungs and pleura: Lungs are clear. No pleural effusions or pneumothorax. Mediastinum: Mediastinal contours appear prominent likely due to portable technique. Heart size is normal. Bones and chest wall: No displaced fracture is identified. There is mild degeneration of the acromioclavicular joint bilaterally. Overlying soft tissues appear unremarkable. IMPRESSION: 1. No definite acute traumatic abnormality. Dictated by: Torey Niño M.D. on 03/24/2019 at 10:15 Approved by: Torey Niño M.D. on 03/24/2019 at 10:16 shoulder xray: Radiologist's impression: Khris Guaman 68 M [address] [address] XRay Report Signed Patient: Khris Guaman CMR#: [id number] : 1950cct:[id number] Age/Sex: 68 / MDate of Service: 03/24/19 Loc: ED Accession Number: [id number] Procedure: XR shoulder LT min 2V Ordering Provider: Ita Ramirez D.O. PROCEDURE: XR SHOULDER LT MIN 2V INDICATIONS: fall, left shoulder pain TECHNIQUE: 3 views of the shoulder were acquired. COMPARISON: [facility], CR, BILATERAL SHOULDER, 10/11/2014, 11:50. [facility], CR, XR CHEST 1V, 03/24/2019, 9:31. FINDINGS: Bones: There is a nondisplaced fracture laterally at the humeral head neck junction. There is moderate to severe glenohumeral joint degeneration with inferior osteophytosis and prominent subchondral sclerosis which limits evaluation. There is mild acromioclavicular joint degeneration. Visualized ribs appear intact. Soft tissues: No suspicious soft tissue calcifications. IMPRESSION: 1. Mildly displaced fracture laterally at the humeral head-neck junction. Evaluation is limited by degenerative subchondral sclerosis along the glenohumeral joint. Consider further evaluation with CT. 2. Moderate to severe glenohumeral joint degeneration. Dictated by: Torey Niño M.D. on 03/24/2019 at 10:17 Approved by: Torey Niño M.D. on 03/24/2019 at 10:23 CT scan - head: Radiologist's impression: [facility] [address] [place] [id number] [address] Scan Report Signed Patient: Khris Guaman CMR#: [id number] : [id number]:[id number] Age/Sex: 68 / MDate of Service: 03/24/19 Loc: ED Accession Number: [id number] Procedure: CT head/brain wo con Ordering Provider: Ita Ramirez D.O. PROCEDURE: CT HEAD/BRAIN WO CON INDICATIONS: fall, ? LOC TECHNIQUE: Noncontrast 4.5 mm thick angled axial sections acquired from the foramen magnum to the vertex, with coronal and sagittal reformats. For radiation dose reduction, the following was used: automated exposure control, adjustment of mA and/or kV according to patient size. COMPARISON: [facility], CT, CT HEAD/BRAIN WO CON, 11/14/2018, 1:21. FINDINGS: Image quality: Excellent. CSF spaces: Basal cisterns are patent. No extra-axial fluid collections. Ventricles are normal in size and shape. Brain: No intracranial hemorrhage, mass, or mass effect. Robertson-white matter interface is preserved. Skull and face: Calvarium and visualized facial bones are intact, without suspicious lesions. Sinuses: Visualized sinuses demonstrate mild mucosal thickening within the ethmoid sinuses. The mastoid air cells are clear. IMPRESSION: 1. No acute intracranial abnormality. Dictated by: Torey Niño M.D. on 03/24/2019 at 10:00 Approved by: Torey Niño M.D. on 03/24/2019 at 10:06 CT C-spine: Radiologist's impression: Khris Guaman 68 M 1950 [place] [address] CT Scan Report Signed Patient: Khris Guaman CMR#: [id number] : [id number]:[id number] Age/Sex: 68 / MDate of Service: 03/24/19 Loc: ED Accession Number: [id number] Procedure: CT cervical spine wo con Ordering Provider: Ita Ramirez D.O. PROCEDURE: CT CERVICAL SPINE WO CON INDICATIONS: lower neck pain status post fall. TECHNIQUE: Noncontrast 3 mm thick sections acquired from the skull base to the T4 level. Sagittal and coronal reformats were then constructed. For radiation dose reduction, the following was used: automated exposure control, adjustment of mA and/or kV according to patient size. COMPARISON: [facility], MR, C-SPINE WITHOUT CONTRAST, 09/23/2016, 16:09. [facility] [place], CR, XR CERVICAL SPINE 2 OR 3 VIEWS, 08/06/2017, 10:43. FINDINGS: Image quality: Excellent. Bones: No fractures or dislocations. There is straightening of the cervical lordosis. Minimal anterolisthesis demonstrated C7-T1, similar in appearance to the prior study. The There is fusion of the C4 and C5 vertebra. Multilevel disc space narrowing demonstrated throughout the cervical spine including mild to moderate narrowing inferiorly at C6-C7 and C7-T1 with endplate sclerosis and osteophytosis. There is also multilevel facet arthropathy throughout the cervical spine including moderate degeneration in the mid cervical spine on the left at C2-C5. Visualized superior ribs are intact. Soft tissues: Prevertebral soft tissues are normal in thickness. No paravertebral hematomas. No apical pneumothoraces. There is prominent heterogeneous enlargement of the left thyroid lobe. IMPRESSION: 1. No acute fracture or subluxation. 2. Straightening of the cervical lordosis with minimal anterolisthesis at C7-T1 redemonstrated. 3. Multilevel degenerative disc disease and facet arthropathy redemonstrated. 4. Heterogeneous enlargement of the left thyroid lobe. Further evaluation may be obtained with thyroid ultrasound. Dictated by: Torey Niño M.D. on 03/24/2019 at 10:06 Approved by: Torey Niño M.D. on 03/24/2019 at 10:15 [facility] Narrative Medical decision making narrative: Patient has a left proximal humerus fracture. Images were reviewed with Dr. Woodson who feels alignment is appropriate enough for DC home. Shoulder was immobilized with a sling. Were not able to find a shoulder immobilizer large enough. Patient received morphine which was minimally helpful a while as Dilaudid. He did have a little bit hypoxia with a 2nd dose of Dilaudid. Patient I discuss he can do oxycodone orally with Tylenol as needed. Patient states that he has a little bit of tolerance for pain medication. He is comfortable the plan, he normally follows with Dr. Sam he will call the set up follow-up. I did discuss with Dr. Woodson and he also send a note to Dr. Sam to make sure that he is notified. Discharge Plan Departure Patient Disposition: Home Clinical Impression: Enlarged thyroid Left humeral fracture Qualifiers: Encounter type: initial encounter Humerus Location: proximal Fracture type: closed Discharge Date/Time: 03/24/19 12:44 Interventions: ED Discharge Assessment Last Done: 03/24/19 12:43 Instructions: DI for Shoulder Fracture Activity Restrictions/Additional Instructions: Follow-up with Orthopedic surgery/Dr. Sam in the next 3-5 days for recheck. Call for an appointment this afternoon. Your imaging does show a enlarged thyroid on the left, follow up with your primary physician in order to follow this and make sure that it is not worsening or changing and for additional workup. Take pain medication as prescribed, this medication can make you sleepy do not drive, perform hazards activities or make any major decisions while taking it. Make sure you take a stool softener while taking this medication. I would also recommend taking up to a 1000 mg every 8 hours as needed for pain. You may take these 2 medications together. Splint Care: Keep splint clean and dry. Elevated affected body part to decrease swelling. OK to use ice pack on the affected body part. Use for 15-20 minutes each time, for 5-6x per day. If you develop worsening pain, numbness, tingling, discoloration of the affected body part, loosen the shoulder immobilizer, and either see your doctor for an urgent re-assessment, or return to the Emergency Department. Return to the Emergency Department for any new or worsening symptoms. Prescriptions: New oxycodone 5 mg tablet 5 mg PO Q4-6H PRN (Reason: pain) Qty: 20 RF: 0 No Action polyethylene glycol 3350 [Miralax] 119 GM powder 17 gm PO QDAYP Qty: 0 RF: 0 diclofenac sodium [Voltaren] 1 % gel 1 tj Topical BID Qty: 0 RF: 0 Lantus Solostar U-100 Insulin 100 UNIT/1 ML insulin pen 60 unit SQ BEDTIME Qty: 0 RF: 0 oxybutynin chloride 5 MG tablet 5 mg PO BID Qty: 0 RF: 0 sildenafil [Viagra] 100 MG tablet 100 mg PO PRN MDD 100 mg PRN (Reason: Sexual Activity) Qty: 0 RF: 0 allopurinol 300 MG tablet 300 mg PO DAILY Qty: 0 RF: 0 doxazosin [Cardura] 8 MG tablet 8 mg PO BEDTIME Qty: 0 RF: 0 amlodipine 10 mg tablet 10 mg PO DAILY RF: 0 atorvastatin [Lipitor] 40 mg tablet 40 mg PO BEDTIME RF: 0 bumetanide 2 mg tablet 6 mg PO BID RF: 0 tolterodine [Detrol LA] 4 mg capsule,extended release 24hr 4 mg PO DAILY RF: 0 fexofenadine [Aller-ease] 180 mg tablet 180 mg PO DAILY RF: 0 spironolactone 25 mg tablet 12.5 mg PO BID RF: 0 losartan 100 mg tablet 100 mg PO DAILY RF: 0 cholecalciferol (vitamin D3) 1,000 unit capsule 2,000 unit PO DAILY RF: 0 PreviDent 5000 Plus 1.1 % cream 1 applic dental DIRECTED RF: 0 Dexilant 60 mg capsule,biphase delayed releas 60 mg PO DAILY RF: 0 sennosides-docusate sodium [Senna with Docusate Sodium] 8.6-50 mg Tablet 1 tab PO DAILY RF: 0 insulin aspart U-100 100 unit/mL Solution See Rx Instructions .ROUTE .COMPLEX RF: 0 vitamin B complex Tablet 1 tab PO DAILY RF: 0 capsaicin 0.025 % cream 1 applic topical PRN PRN (Reason: pain) RF: 0 lisinopril 5 mg Tablet 5 mg PO DAILY RF: 0 Lyrica 75 mg capsule 75 mg PO BID RF: 0 carboxymethylcell-glycerin(PF) 0.5-0.9 % Dropperette 1 applic ophthalmic (eye) QID RF: 0 glimepiride 4 mg Tablet 4 mg PO BID RF: 0 multivitamin with minerals Capsule 1 cap PO DAILY RF: 0 artificial saliva (cmce-lytes) [place] With Pump 1 spray PO PRN PRN (Reason: Dry Mouth) RF: 0 Referrals: Gaurang Sam MD [Physician] -
[2019-03-24 09:22] VITALS: BP 158/81; TEMP 37.1
[2019-03-24] MEDS: MORPHINE 4 MG/ML INJ IV (09:30)
--- NOTE | 2019-03-24 09:31 | ED_ITS ---
HPI - Fall General Chief Complaint: Fall Stated Complaint: fell on left side, shoulder/neck/head Time Seen by Provider: 03/24/19 09:14 Source: patient and family Mode of arrival: ambulatory Limitations: no limitations History of Present Illness HPI Narrative: This is a 68-year-old male comes to the emergency department with complaint of ground level fall. Patient states that he was taking his trash out when he tripped and fell. Patient landed on his left side. He felt like he had some swelling left side of his face and then the right. He thinks he may have lost consciousness. It was not a witnessed fall so it is unclear exactly how long. Patient is complaining of pain in his left shoulder and tingling over the upper left back/neck. Patient denies any current headache he denies any vision changes. No nausea, no vomiting, no other GI or urinary symptoms. Patient is not having any chest pain shortness of breath. He denies any other tingling, numbness or weakness in his extremities. He drove himself to significant other's house, then he was driven here by his significant other. The event happ ened about an hour prior to arrival. Related Data Home Medications Medication Instructions Recorded Confirmed polyethylene glycol 3350 [Miralax] 17 gm PO QDAYP #0 04/30/13 03/24/19 Lantus Solostar U-100 Insulin 60 unit SQ BEDTIME #0 04/16/17 03/24/19 allopurinol 300 mg PO DAILY #0 04/16/17 03/24/19 diclofenac sodium [Voltaren] 1 tj TOPICAL BID #0 04/16/17 03/24/19 doxazosin [Cardura] 8 mg PO BEDTIME #0 04/16/17 03/24/19 oxybutynin chloride 5 mg PO BID #0 04/16/17 03/24/19 sildenafil [Viagra] 100 mg PO PRN PRN #0 MDD 100 mg 04/16/17 03/24/19 amlodipine 10 mg PO DAILY 03/24/19 03/24/19 artificial saliva (cmce-lytes) 1 spray PO PRN PRN 03/24/19 03/24/19 atorvastatin [Lipitor] 40 mg PO BEDTIME 03/24/19 03/24/19 bumetanide 6 mg PO BID 03/24/19 03/24/19 capsaicin 1 applic TOPICAL PRN PRN 03/24/19 03/24/19 carboxymethylcell-glycerin(PF) 1 applic OPHTHALMIC (EYE) QID 03/24/19 03/24/19 cholecalciferol (vitamin D3) 2,000 unit PO DAILY 03/24/19 03/24/19 dexlansoprazole [Dexilant] 60 mg PO DAILY 03/24/19 03/24/19 fexofenadine [Aller-ease] 180 mg PO DAILY 03/24/19 03/24/19 fluoride (sodium) [PreviDent 5000 1 applic DENTAL DIRECTED 03/24/19 03/24/19 Plus] glimepiride 4 mg PO BID 03/24/19 03/24/19 insulin aspart U-100 See Rx Instructions .ROUTE .COMPLEX 03/24/19 03/24/19 lisinopril 5 mg PO DAILY 03/24/19 03/24/19 losartan 100 mg PO DAILY 03/24/19 03/24/19 multivitamin with minerals 1 cap PO DAILY 03/24/19 03/24/19 pregabalin [Lyrica] 75 mg PO BID 03/24/19 03/24/19 sennosides-docusate sodium [Senna 1 tab PO DAILY 03/24/19 03/24/19 with Docusate Sodium] spironolactone 12.5 mg PO BID 03/24/19 03/24/19 tolterodine [Detrol LA] 4 mg PO DAILY 03/24/19 03/24/19 vitamin B complex 1 tab PO DAILY 03/24/19 03/24/19 Previous Rx's Medication Instructions Recorded oxycodone 5 mg PO Q4-6H PRN #20 tab 03/24/19 Allergies Allergy/AdvReac Type Severity Reaction Status Date / Time No Known Drug Allergies Allergy Verified 05/09/18 09:17 Review of Systems Review of Systems ROS Unobtainable: All systems reviewed & are unremarkable except as noted in HPI and below Constitutional Denies chills, Denies fever(s), Denies lethargy and Denies weakness Eyes Denies change in vision ENT Ears, Nose, Mouth, and Throat: Denies neck pain and Reports other (Swelling of face, face pain) Cardiovascular Denies chest pain, Denies irregular heart rhythm, Denies lightheadedness, Denies palpitations, Denies dyspnea and Denies orthopnea Respiratory Denies change in phlegm color, Denies chest congestion, Denies cough, Denies dyspnea and Denies wheezing Gastrointestinal Gastrointestinal: Denies abdominal pain, Denies change in bowel habits, Denies diarrhea, Denies nausea and Denies vomiting Genitourinary Denies hematuria, Denies flank pain, Denies urinary frequency and Denies urinary urgency Musculoskeletal Reports as per HPI, Denies abnormal gait, Denies back pain, Reports arthralgias (Left shoulder), Reports limited range of motion, Denies muscle weakness, Denies neck pain, Denies numbness, Reports radiating pain into limb (Left arm), Denies stiffness and Reports tingling (Upper neck) Integumentary/Breasts Denies rash and Reports wounds (Small cut on right knee, abrasion on left) Neurologic Denies abnormal gait, Denies numbness, Reports tingling (Upper neck) and Denies weakness Endocrine Denies palpitations Allergic/Immunologic Denies wheezing Exam Narrative Exam Narrative: GEN: C-collar in ED, Patient appears in moderate distress. HEAD: No evidence of trauma, no raccoon/Desai sign. NECK: Nontender, painless range of motion, trachea midline Positive for Nexus criteria, there is no mid line tenderness, positive for distracting injury, negative for altered mental status, neuro deficit, recent EtOH. EYES: PERRLA, EOMI ENT: External inspection normal, trachea is midline, TM's are normal no hemotypanum, Nares are clear, no septal hematoma, no dental or oral injury, a irway is normal and with normal occlusion, No bony tenderness to palpation RESP: Chest is nontender and has symmetric movement, no ecchymosis, breath sounds are normal no crackles, wheezes or rales CVS: Heart sounds are normal, no murmur noted, No JVD. ABG/GI: Nontender, soft, normal bowel sounds, no distention, no organomegaly, pelvic rock is negative NEURO: Oriented AOx3, neuro is grossly intact, sensation and motor is normal all 4 extremities moving, cranial nerves II through XII are intact, GCS is 15 PSYCH: Normal mood and affect SKIN: Patient has small cut on the right knee that is less than 0.25cm slightly gapped, patient has abrasion the other knee., warm and dry, no crepitus and wit hout decubitus BACK: No CVA tenderness, no vertebral tenderness, no step-off's, no crepitus EXT: Tenderness over the left shoulder, no obvious deformity. Patient does not have tenderness of the left elbow, forearm, wrist or hand any is normal range of motion of the hand and wrist. Patient prefers not to bend his elbow or move his shoulder. He has 2+ pulses bilaterally. With normal sensation in all 5 fingers and throughout the arm, hips are nontender, no pedal edema, normal color and temperature, normal range of motion of extremities with normal tendon exam, 2+ pulses in all four extremities. Patient ambulated in the room to the bed. Initial Vital Signs Initial Vital Signs: Vital Signs Pulse Rate 87 03/24/19 09:08 Respiratory Rate 22 03/24/19 09:08 Pulse Oximetry 99 03/24/19 09:08 Const General: cooperative and well developed Nutritional Appearance: well nourished Orientation: alert, awake, oriented x3 and not confused [facility] Medical History Constipation (Acute) GERD (gastroesophageal reflux disease) (Acute) HTN (hypertension) (Acute) Heart failure (Acute) Hypercholesteremia (Acute) Knee pain (Acute) Renal disease (Acute) Social History (Updated 11/14/18 @ 01:27 by Shaji Dunn DO) marital status: lives independently: Yes Smoking Status: Former smoker Social History marital status: lives independently: Yes Smoking Status: Former smoker Scores GCS Ron coma scale eye opening: Spontaneous [place] coma scale verbal response: Orientated Ron coma scale motor response: Obey commands Ron coma scale total score: 15 Course Orders Ordered: Discontinued Medications Hydromorphone HCl (Dilaudid) 0.5 mg IV NOW ONE Stop: 03/24/19 10:05 Last Admin: 03/24/19 10:07 Dose: 0.5 mg Hydromorphone HCl (Dilaudid) 1 mg IV NOW ONE Stop: 03/24/19 11:13 Last Admin: 03/24/19 11:37 Dose: 1 mg Morphine Sulfate (Morphine) 4 mg IV NOW ONE Stop: 03/24/19 09:22 Last Admin: 03/24/19 09:30 Dose: 4 mg Vital Signs - 8 hr 03/24/19 11:50 03/24/19 12:29 Pulse Rate 85 Respiratory Rate 19 Blood Pressure [Right Arm] 152/70 H Pulse Oximetry 83 L 98 MDM - Fall Lab Data Attestation: I reviewed the patient's lab results. Result diagrams: 03/24/19 09:30 03/24/19 09:30 Lab Results 03/24/19 03/24/19 03/24/19 Range/Units 09:30 09:30 09:30 WBC 5.2 (4.5-11.0) X10^3/uL RBC 4.90 (4.5-5.9) X10^6/uL Hgb 14.0 (13.5-17.5) g/dL Hct 41.7 (41-53) % MCV 85.1 (80-100) fL MCH 28.5 (26-34) PG MCHC 33.5 (30-36) % RDW 15.1 H (11.6-14.8) % Plt Count 165 (150-400) X10^3/uL Neut % (Auto) 72.6 (50-75) % Lymph % (Auto) 17.6 L (25-40) % Pope % (Auto) 6.4 (3-14) % Eos % (Auto) 2.5 (2-4) % Baso % (Auto) 0.9 (0-2) % Neut # (Auto) 3800 (9529-5435) /uL Lymph # (Auto) 900 L (1219-1906) /uL Pope # (Auto) 300 (0-900) /uL Eos # (Auto) 100 (0-450) /uL Baso # (Auto) 0 (0-100) /uL PT 11.3 (10.1-12.7) SECONDS INR 1.0 (0.9-1.3) APTT 30 D (26.4-36.2) SECONDS Sodium 139 (137-145) mmol/L Potassium 3.5 (3.4-5.1) mmol/L Chloride 99 (98-107) mmol/L Carbon Dioxide 28 (22-32) mmol/L BUN 24 H (9-20) mg/dL Creatinine 1.60 H (0.66-1.25) mg/dL Estimated GFR 43.5 L (>60) mL/min BUN/Creatinine Ratio 15.0 (6-22) Glucose 274 H (80-110) mg/dL Calcium 8.9 (8.4-10.2) mg/dL Total Bilirubin 0.7 (0.2-1.3) mg/dL AST 25 (17-59) IU/L ALT 28 (21-72) IU/L Alkaline Phosphatase 126 (38-126) U/L Total Protein 7.0 (6.3-8.2) g/dL Albumin 4.3 (3.5-5.0) g/dL Globulin 2.7 (1.7-4.1) g/dL Albumin/Globulin Ratio 1.6 (1.0-2.8) Ethyl Alcohol < 10 mg/dL Imaging Data Chest x-ray: Radiologist's impression: [address] [address] XRay Report Signed Patient: Khris Guaman CMR#: [id number] : 1950cct:[id number] Age/Sex: 68 / MDate of Service: 03/24/19 Loc: ED Accession Number: [id number] Procedure: XR chest 1V Ordering Provider: Ita Ramirez D.O. PROCEDURE: XR CHEST 1V INDICATIONS: fall, ? LOC< left shoulder pain TECHNIQUE: One view of the chest was acquired. COMPARISON: [facility], , XR CHEST 2V, 05/09/2018, 9:15. FINDINGS: Surgical changes and devices: None. Lungs and pleura: Lungs are clear. No pleural effusions or pneumothorax. Mediastinum: Mediastinal contours appear prominent likely due to portable technique. Heart size is normal. Bones and chest wall: No displaced fracture is identified. There is mild degeneration of the acromioclavicular joint bilaterally. Overlying soft tissues appear unremark able. IMPRESSION: 1. No definite acute traumatic abnormality. Dictated by: Torey Niño M.D. on 03/24/2019 at 10:15 Approved by: Torey Niño M.D. on 03/24/2019 at 10:16 shoulder xray: Radiologist's impression: Khris Guaman 68 M [address] [address] XRay Report Signed Patient: Khris Guaman CMR#: [id number] : 1950cct:[id number] Age/Sex: 68 / MDate of Service: 03/24/19 Loc: ED Accession Number: [id number] Procedure: XR shoulder LT min 2V Ordering Provider: Ita Ramirez D.O. PROCEDURE: XR SHOULDER LT MIN 2V INDICATIONS: fall, left shoulder pain TECHNIQUE: 3 views of the shoulder were acquired. COMPARISON: [facility] [place], CR, BILATERAL SHOULDER, 10/11/2014, 11:50. [facility], CR, XR CHEST 1V, 03/24/2019, 9:31. FINDINGS: Bones: There is a nondisplaced fracture laterally at the humeral head neck junction. There is moderate to severe glenohumeral joint degeneration with inferior osteophytosis and prominent subchondral sclerosis which limits evaluation. There is mild acromioclavicular joint degeneration. Visualized ribs appear intact. Soft tissues: No suspicious soft tissue calcifications. IMPRESSION: 1. Mildly displaced fracture laterally at the humeral head-neck junction. Evaluation is limited by degenerative subchondral sclerosis along the glenohumeral joint. Consider further evaluation with CT. 2. Moderate to severe glenohumeral joint degeneration. Dictated by: Torey Niño M.D. on 03/24/2019 at 10:17 Approved by: Torey Niño M.D. on 03/24/2019 at 10:23 CT scan - head: Radiologist's impression: [address] [address] [address] Scan Report Signed Patient: Khris Guaman CMR#: [id number] : 1950cct:[id number] Age/Sex: 68 / MDate of Service: 03/24/19 Loc: ED Accession Number: [id number] Procedure: CT head/brain wo con Ordering Provider: Ita Ramirez D.O. PROCEDURE: CT HEAD/BRAIN WO CON INDICATIONS: fall, ? LOC TECHNIQUE: Noncontrast 4.5 mm thick angled axial sections acquired from the foramen magnum to the vertex, with coronal and sagittal reformats. For radiation dose reduction, the following was used: automated exposure control, adjustment of mA and/or kV according to patient size. COMPARISON: [facility], CT, CT HEAD/BRAIN WO CON, 11/14/2018, 1:21. FINDINGS: Image quality: Excellent. CSF spaces: Basal cisterns are patent. No extra-axial fluid collections. Ventricles are normal in size and shape. Brain: No intracranial hemorrhage, mass, or mass effect. Robertson-white matter interface is preserved. Skull and face: Calvarium and visualized facial bones are intact, without suspicious lesions. Sinuses: Visualized sinuses demonstrate mild mucosal thickening within the ethmoid sinuses. The mastoid air cells are clear. IMPRESSION: 1. No acute intracranial abnormality. Dictated by: Torey Niño M.D. on 03/24/2019 at 10:00 Approved by: Torey Niño M.D. on 03/24/2019 at 10:06 CT C-spine: Radiologist's impression: Khris Guaman 68 M 1950 [place] [address] CT Scan Report Signed Patient: Khris Guaman CMR#: [id number] : 1950cct:[id number] Age/Sex: 68 / MDate of Service: 03/24/19 Loc: ED Accession Number: [id number] Procedure: CT cervical spine wo con Ordering Provider: Ita Ramirez D.O. PROCEDURE: CT CERVICAL SPINE WO CON INDICATIONS: lower neck pain status post fall. TECHNIQUE: Noncontrast 3 mm thick sections acquired from the skull base to the T4 level. Sagittal and coronal reformats were then constructed. For radiation dose reduction, the following was used: automated exposure control, adjustment of mA and/or kV according to patient size. COMPARISON: [facility], MR, C-SPINE WITHOUT CONTRAST, 09/23/2016, 16:09. [facility] [place], CR, XR CERVICAL SPINE 2 OR 3 VIEWS, 08/06/2017, 10:43. FINDINGS: Image quality: Excellent. Bones: No fractures or dislocations. There is straightening of the cervical lordosis. Minimal anterolisthesis demonstrated C7-T1, similar in appearance to the prior study. The There is fusion of the C4 and C5 vertebra. Multilevel disc space narrowing demonstrated throughout the cervical spine including mild to moderate narrowing inferiorly at C6-C7 and C7-T1 with endplate sclerosis and osteophytosis. There is also multilevel facet arthropathy throughout the cervical spine including moderate degeneration in the mid cervical spine on the left at C2-C5. Visualized superior ribs are intact. Soft tissues: Prevertebral soft tissues are normal in thickness. No paravertebral hematomas. No apical pneumothoraces. There is prominent heterogeneous enlargement of the left thyroid lobe. IMPRESSION: 1. No acute fracture or subluxation. 2. Straightening of the cervical lordosis with minimal anterolisthesis at C7-T1 redemonstrated. 3. Multilevel degenerative disc disease and facet arthropathy redemonstrated. 4. Heterogeneous enlargement of the left thyroid lobe. Further evaluation may be obtained with thyroid ultrasound. Dictated by: Torey Niño M.D. on 03/24/2019 at 10:06 Approved by: Torey Niño M.D. on 03/24/2019 at 10:15 [facility] Narrative Medical decision making narrative: Patient has a left proximal humerus fracture. Images were reviewed with Dr. Woodson who feels alignment is appropriate enough for DC home. Shoulder was immobilized with a sling. Were not able to find a shoulder immobilizer large enough. Patient received morphine which was minimally helpful a while as Dilaudid. He did have a little bit hypoxia with a 2nd dose of Dilaudid. Patient I discuss he can do oxycodone orally with Tylenol as needed. Patient states that he has a little bit of tolerance for pain medication. He is comfortable the plan, he normally follows with Dr. Sam he will call the set up follow-up. I did discuss with Dr. Woodson and he also send a note to Dr. Sam to make sure that he is notified. Discharge Plan Departure Patient Disposition: Home Clinical Impression: Enlarged thyroid Left humeral fracture Qualifiers: Encounter type: initial encounter Humerus Location: proximal Fracture type: closed Discharge Date/Time: 03/24/19 12:44 Interventions: ED Discharge Assessment Last Done: 03/24/19 12:43 Instructions: DI for Shoulder Fracture Activity Restrictions/Additional Instructions: Follow-up with Orthopedic surgery/Dr. Sam in the next 3-5 days for recheck. Call for an appointment this afternoon. Your imaging does show a enlarged thyroid on the left, follow up with your primary physician in order to follow this and make sure that it is not worsening or changing and for additional workup. Take pain medication as prescribed, this medication can make you sleepy do not drive, perform hazards activities or make any major decisions while taking it. Make sure you take a stool softener while taking this medication. I would also recommend taking up to a 1000 mg every 8 hours as needed for pain. You may take these 2 medications together. Splint Care: Keep splint clean and dry. Elevated affected body part to decrease swelling. OK to use ice pack on the affected body part. Use for 15-20 minutes each time, for 5-6x per day. If you develop worsening pain, numbness, tingling, discoloration of the affected body part, loosen the shoulder immobilizer, and either see your doctor for an urgent re-assessment, or return to the Emergency Department. Return to the Emergency Department for any new or worsening symptoms. Prescriptions: New oxycodone 5 mg tablet 5 mg PO Q4-6H PRN (Reason: pain) Qty: 20 RF: 0 No Action polyethylene glycol 3350 [Miralax] 119 GM powder 17 gm PO QDAYP Qty: 0 RF: 0 diclofenac sodium [Voltaren] 1 % gel 1 tj Topical BID Qty: 0 RF: 0 Lantus Solostar U-100 Insulin 100 UNIT/1 ML insulin pen 60 unit SQ BEDTIME Qty: 0 RF: 0 oxybutynin chloride 5 MG tablet 5 mg PO BID Qty: 0 RF: 0 sildenafil [Viagra] 100 MG tablet 100 mg PO PRN MDD 100 mg PRN (Reason: Sexual Activity) Qty: 0 RF: 0 allopurinol 300 MG tablet 300 mg PO DAILY Qty: 0 RF: 0 doxazosin [Cardura] 8 MG tablet 8 mg PO BEDTIME Qty: 0 RF: 0 amlodipine 10 mg tablet 10 mg PO DAILY RF: 0 atorvastatin [Lipitor] 40 mg tablet 40 mg PO BEDTIME RF: 0 bumetanide 2 mg tablet 6 mg PO BID RF: 0 tolterodine [Detrol LA] 4 mg capsule,extended release 24hr 4 mg PO DAILY RF: 0 fexofenadine [Aller-ease] 180 mg tablet 180 mg PO DAILY RF: 0 spironolactone 25 mg tablet 12.5 mg PO BID RF: 0 losartan 100 mg tablet 100 mg PO DAILY RF: 0 cholecalciferol (vitamin D3) 1,000 unit capsule 2,000 unit PO DAILY RF: 0 PreviDent 5000 Plus 1.1 % cream 1 applic dental DIRECTED RF: 0 Dexilant 60 mg capsule,biphase delayed releas 60 mg PO DAILY RF: 0 sennosides-docusate sodium [Senna with Docusate Sodium] 8.6-50 mg Tablet 1 tab PO DAILY RF: 0 insulin aspart U-100 100 unit/mL Solution See Rx Instructions .ROUTE .COMPLEX RF: 0 vitamin B complex Tablet 1 tab PO DAILY RF: 0 capsaicin 0.025 % cream 1 applic topical PRN PRN (Reason: pain) RF: 0 lisinopril 5 mg Tablet 5 mg PO DAILY RF: 0 Lyrica 75 mg capsule 75 mg PO BID RF: 0 carboxymethylcell-glycerin(PF) 0.5-0.9 % Dropperette 1 applic ophthalmic (eye) QID RF: 0 glimepiride 4 mg Tablet 4 mg PO BID RF: 0 multivitamin with minerals Capsule 1 cap PO DAILY RF: 0 artificial saliva (cmce-lytes) [place] With Pump 1 spray PO PRN PRN (Reason: Dry Mouth) RF: 0 Referrals: Gaurang Sam MD [Physician] -
[2019-03-24 09:43] LABS: Add Manual Diff / Slide Review NO; Basophils Absolute Auto 0 /uL (0-100); Basophils Percent Auto 0.9 % (0-2); Eosinophils Absolute Auto 100 /uL (0-450); Eosinophils Percent Auto 2.5 % (2-4); Hematocrit 41.7 % (41-53); Lymphocytes Absolute Auto 900 /uL (1100-4500); Lymphocytes Percent Auto 17.6 % (25-40); Mean Corpuscular HGB Conc 33.5 % (30-36); Mean Corpuscular Hemoglobin 28.5 PG (26-34); Mean Corpuscular Volume 85.1 fL (80-100); Monocytes Absolute Auto 300 /uL (0-900); Monocytes Percent Auto 6.4 % (3-14); Neutrophils Absolute Auto 3800 /uL (1500-7000); Neutrophils Percent Auto 72.6 % (50-75); Platelet Count 165 X10^3/uL (150-400); Red Cell Distribution Width 15.1 % (11.6-14.8); White Blood Cell Count 5.2 X10^3/uL (4.5-11.0)
[2019-03-24 09:53] LABS: Alanine Aminotransferase 28 IU/L (21-72); Albumin 4.3 g/dL (3.5-5.0); Albumin Globulin Ratio 1.6 (1.0-2.8); Alkaline Phosphatase 126 U/L (38-126); Aspartate Aminotransferase 25 IU/L (17-59); Bilirubin Total 0.7 mg/dL (0.2-1.3); Blood Urea Nitrogen 24 mg/dL (9-20); Calcium 8.9 mg/dL (8.4-10.2); Carbon Dioxide 28 mmol/L (22-32); Chloride 99 mmol/L (98-107); Estimated Glomerular Filt Rate 43.5 mL/min (>60); Ethanol (ETOH) < 10 mg/dL; Globulin 2.7 g/dL (1.7-4.1); Glucose 274 mg/dL (80-110); HEMOLYSIS 24 (0-50); PTT Partial Thromboplastin Tim 30 SECONDS (26.4-36.2); Potassium 3.5 mmol/L (3.4-5.1); Prothrombin Time 11.3 SECONDS (10.1-12.7); Sodium 139 mmol/L (137-145)
[2019-03-24 10:00] VITALS: BP 167/77; PULSE 88; RESP 18; O2SAT 88
[2019-03-24] MEDS: HYDROMORPHONE 1 MG INJ 0.5 MG IV (10:07)
[2019-03-24] MEDS: HYDROMORPHONE 1 MG INJ IV (11:37)
[2019-03-24 11:50] VITALS: O2SAT 83
--- NOTE | 2019-03-24 11:50 | PC.NURSE ---
Placed on 2L NC due to o2 drop after pain medications. Breathing normal and unlabored.
[2019-03-24 12:29] VITALS: BP 152/70; PULSE 85; RESP 19; O2SAT 98
== END 2019-03-24 12:44 | disposition home or self-care (01) ==
PROVIDERS: Emergency Provider Emergency Medicine
DX: S42.302A Unspecified fracture of shaft of humerus, left arm, initial encounter for closed fracture (principal); M54.2 Cervicalgia; E04.9 Nontoxic goiter, unspecified; W01.0XXA Fall on same level from slipping, tripping and stumbling without subsequent striking against object, initial encounter
CPT/HCPCS: 36591; 70450; 71045; 72125; 73030; 80053; 80320; 85025; 85610; 85730; 96374; 96375; 96376; 99283; 99284; J1170; J2270

== ENCOUNTER 2019-05-23 13:21 | Emergency (ER) | payer MEDICARE, OTHER, SELFPAY ==
[2019-05-23 13:26] VITALS: BP 148/74; PULSE 82; RESP 18; TEMP 36.2; O2SAT 97; BMI 40.4
--- NOTE | 2019-05-23 14:26 | DI.RAD.S_ITS ---
PROCEDURE: XR KNEE LT 1TO2V INDICATIONS: pain sp fall TECHNIQUE: 2 views of the knee were acquired. COMPARISON: None. FINDINGS: Bones: No fractures or dislocations. No suspicious bony lesions. Moderate severe medial and patellofemoral compartment osteoarthritis. Soft tissues: Nonspecific joint effusion. No suspicious soft tissue calcifications. IMPRESSION: No fracture. No acute osseous lesion. If symptoms and/or clinical suspicion for pathology persists, further assessment with repeat radiographs (7-10 days) or advanced imaging (e.g. CT, MRI or bone scan) may be helpful. Dictated by: Stephanie Reyes MD, PhD on 05/23/2019 at 15:28 Approved by: Stephanie Reyes MD, PhD on 05/23/2019 at 15:29
--- NOTE | 2019-05-23 14:26 | DI.RAD.S_ITS ---
PROCEDURE: XR THORACIC SPINE 2V INDICATIONS: pain sp fall TECHNIQUE: 2 views of the thoracic spine were acquired. COMPARISON: None. FINDINGS: Bones: No fractures or dislocations. No suspicious bony lesions. 12 pairs of ribs are noted, and appear intact where visualized. Soft tissues: No paravertebral stripe thickening. Surgical clips noted in the soft tissue of the right neck base. IMPRESSION: No fracture. No acute osseous lesion. If symptoms and/or clinical suspicion for pathology persists, evaluation with MRI may be helpful for further assessment. Dictated by: Stephanie Reyes MD, PhD on 05/23/2019 at 15:27 Approved by: Stephanie Reyes MD, PhD on 05/23/2019 at 15:27
--- NOTE | 2019-05-23 14:26 | DI.RAD.S_ITS ---
PROCEDURE: XR KNEE RT 1TO2V INDICATIONS: pain sp fall TECHNIQUE: 2 views of the knee were acquired. COMPARISON: None. FINDINGS: Bones: No fractures or dislocations. No suspicious bony lesions. Moderate severe medial and patellofemoral compartment osteoarthritis. Mild lateral compartment osteoarthritis. Soft tissues: Nonspecific suprapatellar joint effusion. No suspicious soft tissue calcifications. IMPRESSION: No fracture. No acute osseous lesion. If symptoms and/or clinical suspicion for pathology persists, further assessment with repeat radiographs (7-10 days) or advanced imaging (e.g. CT, MRI or bone scan) may be helpful. Dictated by: Stephanie Reyes MD, PhD on 05/23/2019 at 15:29 Approved by: Stephanie Reyes MD, PhD on 05/23/2019 at 15:30
--- NOTE | 2019-05-23 14:26 | DI.RAD.S_ITS ---
PROCEDURE: XR LUMBAR SPINE 2-3V INDICATIONS: pain sp fall TECHNIQUE: 3 views of the lumbar spine were acquired. COMPARISON: None. FINDINGS: Bones: 5 [id number] vertebrae are present. There is normal bony alignment. No vertebral body compression fractures. No suspicious bony lesions. Mild multilevel degenerative disc disease. Soft tissues: Overlying bowel gas pattern is normal. No suspicious soft tissue calcifications. IMPRESSION: No fracture. No acute osseous lesion. If symptoms and/or clinical suspicion for pathology persists, evaluation with MRI may be helpful for further assessment. Dictated by: Stephanie Reyes MD, PhD on 05/23/2019 at 15:30 Approved by: Stephanie Reyes MD, PhD on 05/23/2019 at 15:30
--- NOTE | 2019-05-23 14:50 | DI.CT.S_ITS ---
PROCEDURE: CT CERVICAL SPINE WO CON INDICATIONS: pain sp fall TECHNIQUE: Noncontrast 3 mm thick sections acquired from the skull base to the T4 level. Sagittal and coronal reformats were then constructed. For radiation dose reduction, the following was used: automated exposure control, adjustment of mA and/or kV according to patient size. COMPARISON: [facility], CT, CT CERVICAL SPINE WO CON, 03/24/2019, 9:37. FINDINGS: Image quality: Excellent. Bones: No fractures or dislocations. Visualized superior ribs are intact. Relatively prominent degenerative changes are seen, with fusion at the C4-C5 level. Moderate to severe disc space narrowing can be seen at C5-C6 and C6-C7. Soft tissues: Prevertebral soft tissues are normal in thickness. No paravertebral hematomas. No apical pneumothoraces. The cervix changes of the right neck can be seen. IMPRESSION: No acute fractures are seen. Prominent degenerative changes are seen, including vertebral body fusion at C4-C5. Prior postoperative change of the right neck noted. Dictated by: Valerio Tomlinson M.D. on 05/23/2019 at 14:21 Approved by: Valerio Tomlinson M.D. on 05/23/2019 at 14:22
--- NOTE | 2019-05-23 14:50 | DI.CT.S_ITS ---
PROCEDURE: CT HEAD/BRAIN WO CON INDICATIONS: fall TECHNIQUE: Noncontrast 4.5 mm thick angled axial sections acquired from the foramen magnum to the vertex, with coronal and sagittal reformats. For radiation dose reduction, the following was used: automated exposure control, adjustment of mA and/or kV according to patient size. COMPARISON: [facility], CT, SINUS SCREEN, 03/01/2010, 10:01. [facility], CT, CT HEAD/BRAIN WO CON, 11/14/2018, 1:21. [facility], CT, CT CERVICAL SPINE WO CON, 05/23/2019, 14:51. [facility], CT, CT HEAD/BRAIN WO CON, 03/24/2019, 9:37. FINDINGS: Image quality: Excellent. CSF spaces: Basal cisterns are patent. No extra-axial fluid collections. The ventricles are symmetric in size and shape. Brain: No intracranial bleeds or masses. There is cerebral volume loss for age, with resultant ventricular and sulcal prominence. There are periventricular and deep white matter chronic small vessel ischemic changes. There is intracranial internal carotid artery atherosclerosis. Skull and face: There is a mild scalp hematoma seen posteriorly and on the right, as on series 2 image 23. No underlying calvarial fracture can be seen. Calvarium and visualized facial bones appear intact, without suspicious lesions. Sinuses: Visualized sinuses and mastoids are clear. IMPRESSION: Right posterior scalp hematoma, without acute intracranial hemorrhage or displaced calvarial fracture. Note is made of age-appropriate brain parenchymal volume loss and chronic small vessel ischemic changes. Dictated by: Valerio Tomlinson M.D. on 05/23/2019 at 14:20 Approved by: Valerio Tomlinson M.D. on 05/23/2019 at 14:21
[2019-05-23 15:56] VITALS: BP 143/74; PULSE 70; RESP 19; O2SAT 97
--- NOTE | 2019-05-23 16:26 | DI.RAD.S_ITS ---
PROCEDURE: XR SHOULDER LT MIN 2V INDICATIONS: pain after fall. TECHNIQUE: 3 views of the shoulder were acquired. COMPARISON: [facility], CR, XR SHOULDER LT MIN 2V, 03/24/2019, 9:31. FINDINGS: Bones: No fractures or dislocations. No suspicious bony lesions. Visualized ribs appear intact. There is linear lucency traversing the humeral head and neck. Periarticular osteophyte formation at the acromioclavicular and glenohumeral joints is present. Soft tissues: No suspicious soft tissue calcifications. IMPRESSION: 1. No change in left proximal humeral fracture. 2. Acromioclavicular and glenohumeral joint osteoarthritis. Dictated by: Randa Wahl M.D. on 05/23/2019 at 16:58 Approved by: Randa Wahl M.D. on 05/23/2019 at 16:59
--- NOTE | 2019-05-23 16:26 | DI.RAD.S_ITS ---
PROCEDURE: XR CHEST 2V INDICATIONS: possible aspiration per fall witness TECHNIQUE: 2 views of the chest were acquired. COMPARISON: [facility], , XR CHEST 1V, 03/24/2019, 9:31. FINDINGS: Surgical changes and devices: None. Lungs and pleura: Mild increased perihilar lung markings are present without lobar consolidation, effusion, or pneumothorax. Mediastinum: Mediastinal contours are normal. Heart size is normal. Bones and chest wall: No suspicious bony abnormalities. Degenerative changes of the spine and shoulders are not adequately evaluated. Soft tissues appear unremarkable. IMPRESSION: Prominent perihilar lung markings may represent vascular congestion. Atelectasis or aspiration are difficult to exclude. Dictated by: Damion Quiros M.D. on 05/23/2019 at 15:58 Approved by: Damion Quiros M.D. on 05/23/2019 at 16:02
[2019-05-23 18:08] VITALS: BP 139/86; PULSE 71; RESP 14; O2SAT 99
--- NOTE | 2019-05-23 19:22 | ED.FALL ---
HPI - Fall <Ita Aguilera [employer] KILN-BC - Last Filed: 05/23/19 19:33> General Chief Complaint: Fall Stated Complaint: Fell in pool off the ladder Time Seen by Provider: 05/23/19 14:08 Source: patient Mode of arrival: ambulatory Limitations: no limitations History of Present Illness HPI Narrative: The patient is a 68-year-old male former smoker who presents with a chief complaint of various pain after falling while doing physical therapy in the pool. He states he is going down the ladder, stepped and missed the step so we grabbed the side rail with his right arm. He states he did several ?contortions any thinks he might have hit his head. He states he does not remember the incident after he thinks he hit his head. He complains of neck pain, back pain, bilateral knee pain. He is also concerned about his left humerus as that is why he is in physical therapy, for that recovery. He complains of some lightheadedness and nausea. He states he ?feels funny.? He states that he slipped and missed the step and that is why he fell, no lightheadedness or dizziness or chest pain prior to the incident. The patient complains of back pain extending down his back. No incontinence of bowel, incontinence of bladder or saddle anesthesia. He denies any weakness or numbness. Related Data Home Medications Medication Instructions Recorded Confirmed polyethylene glycol 3350 [Miralax] 17 gm PO QDAYP #0 04/30/13 05/23/19 allopurinol 300 mg PO DAILY #0 04/16/17 05/23/19 diclofenac sodium [Voltaren] 1 tj TOPICAL Q4H PRN #0 MDD 16 G 04/16/17 05/23/19 (4 doses) doxazosin [Cardura] 8 mg PO BEDTIME #0 04/16/17 05/23/19 sildenafil [Viagra] 100 mg PO PRN PRN #0 MDD 100 mg 04/16/17 03/24/19 amlodipine 10 mg PO DAILY 03/24/19 05/23/19 artificial saliva (cmce-lytes) 1 spray PO PRN PRN 03/24/19 05/23/19 atorvastatin [Lipitor] 40 mg PO BEDTIME 03/24/19 05/23/19 bumetanide 6 mg PO BID 03/24/19 05/23/19 capsaicin 1 applic TOPICAL PRN PRN 03/24/19 05/23/19 carboxymethylcell-glycerin(PF) 1 applic OPHTHALMIC (EYE) QID 03/24/19 05/23/19 cholecalciferol (vitamin D3) 2,000 unit PO DAILY 03/24/19 05/23/19 dexlansoprazole [Dexilant] 60 mg PO DAILY 03/24/19 05/23/19 fexofenadine [Aller-ease] 180 mg PO DAILY 03/24/19 05/23/19 fluoride (sodium) [PreviDent 5000 1 applic DENTAL DIRECTED 03/24/19 03/24/19 Plus] glimepiride 4 mg PO BID 03/24/19 05/23/19 insulin aspart U-100 See Rx Instructions .ROUTE .COMPLEX 03/24/19 05/23/19 lisinopril 5 mg PO DAILY 03/24/19 05/23/19 losartan 100 mg PO DAILY 03/24/19 05/23/19 multivitamin with minerals 1 cap PO DAILY 03/24/19 05/23/19 pregabalin [Lyrica] 75 mg PO BID 03/24/19 03/24/19 spironolactone 12.5 mg PO BID 03/24/19 05/23/19 tolterodine [Detrol LA] 4 mg PO DAILY 03/24/19 05/23/19 vitamin B complex 1 tab PO DAILY 03/24/19 05/23/19 chlorhexidine gluconate 1 applic TOPICAL DAILY 05/23/19 05/23/19 chlorhexidine gluconate 15 ml MUCOUS MEMBRANE BID 05/23/19 05/23/19 flaxseed oil 2 cap PO DAILY 05/23/19 05/23/19 insulin glargine 70 unit SUBCUT BEDTIME 05/23/19 05/23/19 ipratropium-albuterol 1 ea INHALATION DIRECTED 05/23/19 05/23/19 sennosides-docusate sodium 1 tab PO DAILY 05/23/19 05/23/19 Previous Rx's Medication Instructions Recorded cyclobenzaprine 10 mg PO TID PRN #30 tab 05/23/19 tramadol 50 mg PO Q8H PRN #7 tab 05/23/19 Allergies Allergy/AdvReac Type Severity Reaction Status Date / Time No Known Drug Allergies Allergy Verified 05/23/19 13:26 Review of Systems <Ita NeumannMARGO pollock-BC - Last Filed: 05/23/19 19:33> Review of Systems GENERAL: Denies chills, fatigue, malaise, fever, sweats. HEENT: Denies sinus pain, ear pain, sore throat, difficulty swallowing, dizziness. RESPIRATORY: Denies dyspnea, cough, wheezing, hemoptysis, sputum. CARDIOVASCULAR: Denies chest pain, palpitations, orthopnea, edema, GASTROINTESTINAL: Denies nausea, vomiting, abdominal pain, diarrhea, constipation, melena. : Denies dysuria, frequency, incontinence, hematuria, urinary retention. MUSCULOSKELETAL: See HPI SKIN: Denies rash, skin lesions, or other NEUROLOGIC: see HPI PSYCHIATRIC: No concerning psychosocial issues. 12 point review of systems is negative except for those stated above Exam <MARGO Waller-BC - Last Filed: 05/23/19 19:33> Narrative Exam Narrative: GENERAL: Obese male in no acute distress HEAD: Atraumatic. Normocephalic. Slight tenderness to tendon portal palpation. EYES: Pupils equal round and reactive. Extraocular motions intact. No scleral icterus. No injection or drainage. ENT: Nose without bleeding, purulent drainage or septal hematoma. Throat without erythema, tonsillar hypertrophy or exudate. Uvula midline. Airway patent. NECK: Trachea midline. No JVD or lymphadenopathy. Supple, nontender, no meningeal signs. CARDIOVASCULAR: Regular rate and rhythm RESPIRATORY: Clear to auscultation. Breath sounds equal bilaterally. No wheezes, rales, or rhonchi. No cough. No increased respiratory effort. No accessory muscle use. GASTROINTESTINAL: Abdomen soft, non-tender, nondistended. No hepato-splenomegaly, or palpable masses. No guarding. Active bowel sounds all 4 quadrants. EXTREMITIES: Pain to palpation of bilateral knees, bilateral shoulders. Peripheral pulses intact all 4 extremities. Full range of motion noted bilateral knees, elbows etc. BACK: Nontender without deformity or crepitance. No flank tenderness. Midline pain to palpation of C T and L-spine. Cervical collar in place during exam. NEURO: AOx3. Strength is equal upper and lower extremities bilaterally. No gross cranial nerve deficit. SKIN: No rash or erythema. No ecchymosis noted on visible skin. Initial Vital Signs Initial Vital Signs: Vital Signs Temperature 97.1 F L 05/23/19 13:26 Pulse Rate 82 05/23/19 13:26 Respiratory Rate 18 05/23/19 13:26 Blood Pressure 148/74 H 05/23/19 13:26 Pulse Oximetry 97 05/23/19 13:26 <Radhika Wilkinson DO - Last Filed: 05/24/19 07:14> Initial Vital Signs Initial Vital Signs: Vital Signs Temperature 97.1 F L 05/23/19 13:26 Pulse Rate 82 05/23/19 13:26 Respiratory Rate 18 05/23/19 13:26 Blood Pressure 148/74 H 05/23/19 13:26 Pulse Oximetry 97 05/23/19 13:26 PFSH <SVEN Waller - Last Filed: 05/23/19 19:33> Medical History Constipation (Acute) GERD (gastroesophageal reflux disease) (Acute) HTN (hypertension) (Acute) Heart failure (Acute) Hypercholesteremia (Acute) Knee pain (Acute) Renal disease (Acute) Social History marital status: lives independently: Yes Smoking Status: Former smoker Social History marital status: lives independently: Yes Smoking Status: Former smoker Course <SVEN Waller - Last Filed: 05/23/19 19:33> Orders Ordered: ED Orders 05/23/19 14:26 XR knee LT 1to2V Stat XR knee RT 1to2V Stat XR lumbar spine 2-3V Stat XR thoracic spine 2V Stat 05/23/19 14:50 CT cervical spine wo con Stat CT head/brain wo con Stat 05/23/19 16:26 XR chest 2V Stat XR shoulder LT min 2V Stat Vital Signs - 8 hr 05/23/19 13:26 05/23/19 15:56 05/23/19 18:08 Temperature 97.1 F L Pulse Rate 82 70 71 Respiratory Rate 18 14 Blood Pressure 148/74 H 139/86 Blood Pressure [Right Arm] 143/74 H Pulse Oximetry 97 97 99 <Radhika Wilkinson DO - Last Filed: 05/24/19 07:14> Orders Ordered: ED Orders 05/23/19 14:26 XR knee LT 1to2V Stat XR knee RT 1to2V Stat XR lumbar spine 2-3V Stat XR thoracic spine 2V Stat 05/23/19 14:50 CT cervical spine wo con Stat CT head/brain wo con Stat 05/23/19 16:26 XR chest 2V Stat XR shoulder LT min 2V Stat Vital Signs - 8 hr 05/23/19 13:26 05/23/19 15:56 05/23/19 18:08 Temperature 97.1 F L Pulse Rate 82 70 71 Respiratory Rate 18 19 14 Blood Pressure 148/74 H 139/86 Blood Pressure [Right Arm] 143/74 H Pulse Oximetry 97 97 99 MDM - Fall <SVEN Waller - Last Filed: 05/23/19 19:33> Lab Data Urine Dip Bedside Urine Glucose 500 mg/dl Bedside Urine Bilirubin - Negative Bedside Urine Ketone - Negative Urine Specific [place] 1.010 Bedside Urine Occult Blood - Negative Bedside Urine pH 6.0 Bedside Urine Protein - Negative Bedside Urine Urobilinogen - Negative Bedside Urine Nitrite - Negative Bedside Urine Leukocytes - Negative Esterase Imaging Data Chest x-ray: Radiologist's impression: Khris Guaman 68 M [address] [address] XRay Report Signed Patient: Khris Guaman CMR#: [id number] : 1950cct:[id number] Age/Sex: 68 / MDate of Service: 05/23/19 Loc: ED Accession Number: [id number] Procedure: XR chest 2V Ordering Provider: Ita Aguilera PROCEDURE: XR CHEST 2V INDICATIONS: possible aspiration per fall witness TECHNIQUE: 2 views of the chest were acquired. COMPARISON: [facility], [place], XR CHEST 1V, 03/24/2019, 9:31. FINDINGS: Surgical changes and devices: None. Lungs and pleura: Mild increased perihilar lung markings are present without lobar consolidation, effusion, or pneumothorax. Mediastinum: Mediastinal contours are normal. Heart size is normal. Bones and chest wall: No suspicious bony abnormalities. Degenerative changes of the spine and shoulders are not adequately evaluated. Soft tissues appear unremarkable. IMPRESSION: Prominent perihilar lung markings may represent vascular congestion. Atelectasis or aspiration are difficult to exclude. Dictated by: Damion Quiros M.D. on 05/23/2019 at 15:58 Approved by: Damion Quiros M.D. on 05/23/2019 at 16:02 Shoulder x-ray: Radiologist's impression: Khris Guaman C 68 M [address] [address] XRay Report Signed Patient: Khris Guaman CMR#: [id number] : 1950cct:[id number] Age/Sex: 68 / MDate of Service: 05/23/19 Loc: ED Accession Number: [id number] Procedure: XR chest 2V Ordering Provider: Ita Aguilera-MUKUL PROCEDURE: XR CHEST 2V INDICATIONS: possible aspiration per fall witness TECHNIQUE: 2 views of the chest were acquired. COMPARISON: [facility], , XR CHEST 1V, 03/24/2019, 9:31. FINDINGS: Surgical changes and devices: None. Lungs and pleura: Mild increased perihilar lung markings are present without lobar consolidation, effusion, or pneumothorax. Mediastinum: Mediastinal contours are normal. Heart size is normal. Bones and chest wall: No suspicious bony abnormalities. Degenerative changes of the spine and shoulders are not adequately evaluated. Soft tissues appear unremarkable. IMPRESSION: Prominent perihilar lung markings may represent vascular congestion. Atelectasis or aspiration are difficult to exclude. Dictated by: Damion Quiros M.D. on 05/23/2019 at 15:58 Approved by: Damion Quiros M.D. on 05/23/2019 at 16:02 CT C-spine: Radiologist's impression: [address] [address] [address] Scan Report Signed Patient: Khris Guaman CMR#: [id number] : 1950cct:[id number] Age/Sex: 68 / MDate of Service: 05/23/19 Loc: ED Accession Number: [id number] Procedure: CT cervical spine wo con Ordering Provider: Ita Aguilera PROCEDURE: CT CERVICAL SPINE WO CON INDICATIONS: pain sp fall TECHNIQUE: Noncontrast 3 mm thick sections acquired from the skull base to the T4 level. Sagittal and coronal reformats were then constructed. For radiation dose reduction, the following was used: automated exposure control, adjustment of mA and/or kV according to patient size. COMPARISON: [facility], CT, CT CERVICAL SPINE WO CON, 03/24/2019, 9:37. FINDINGS: Image quality: Excellent. Bones: No fractures or dislocations. Visualized superior ribs are intact. Relatively prominent degenerative changes are seen, with fusion at the C4-C5 level. Moderate to severe disc space narrowing can be seen at C5-C6 and C6-C7. Soft tissues: Prevertebral soft tissues are normal in thickness. No paravertebral hematomas. No apical pneumothoraces. The cervix changes of the right neck can be seen. IMPRESSION: No acute fractures are seen. Prominent degenerative changes are seen, including vertebral body fusion at C4-C5. Prior postoperative change of the right neck noted. Dictated by: Valerio Tomlinson M.D. on 05/23/2019 at 14:21 Approved by: Valeroi Tomlinson M.D. on 05/23/2019 at 14:22 CT scan - head: Radiologist's impression: [place] [address] CT Scan Report Signed Patient: Khris Guaman CMR#: [id number] : 2Acct:[id number] Age/Sex: 68 / MDate of Service: 05/23/19 Loc: ED Accession Number: [id number] Procedure: CT head/brain wo con Ordering Provider: Ita Aguilera PROCEDURE: CT HEAD/BRAIN WO CON INDICATIONS: fall TECHNIQUE: Noncontrast 4.5 mm thick angled axial sections acquired from the foramen magnum to the vertex, with coronal and sagittal reformats. For radiation dose reduction, the following was used: automated exposure control, adjustment of mA and/or kV according to patient size. COMPARISON: [facility], CT, SINUS SCREEN, 03/01/2010, 10:01. [facility], CT, CT HEAD/BRAIN WO CON, 11/14/2018, 1:21. [facility], CT, CT CERVICAL SPINE WO CON, 05/23/2019, 14:51. [facility], CT, CT HEAD/BRAIN WO CON, 03/24/2019, 9:37. FINDINGS: Image quality: Excellent. CSF spaces: Basal cisterns are patent. No extra-axial fluid collections. The ventricles are symmetric in size and shape. Brain: No intracranial bleeds or masses. There is cerebral volume loss for age, with resultant ventricular and sulcal prominence. There are periventricular and deep white matter chronic small vessel ischemic changes. There is intracranial internal carotid artery atherosclerosis. Skull and face: There is a mild scalp hematoma seen posteriorly and on the right, as on series 2 image 23. No underlying calvarial fracture can be seen. Calvarium and visualized facial bones appear intact, without suspicious lesions. Sinuses: Visualized sinuses and mastoids are clear. IMPRESSION: Right posterior scalp hematoma, without acute intracranial hemorrhage or displaced calvarial fracture. Note is made of age-appropriate brain parenchymal volume loss and chronic small vessel ischemic changes. Dictated by: Valerio Tomlinson M.D. on 05/23/2019 at 14:20 Approved by: Valerio Tomlinson M.D. on 05/23/2019 at 14:21 Right knee x-ray: Radiologist's impression: [place] [address] XRay Report Signed Patient: Khris Guaman CMR#: [id number] : 2Acct:[id number] Age/Sex: 68 / MDate of Service: 05/23/19 Loc: ED Accession Number: [id number] Procedure: XR knee RT 1to2V Ordering Provider: Ita Aguilera- PROCEDURE: XR KNEE RT 1TO2V INDICATIONS: pain sp fall TECHNIQUE: 2 views of the knee were acquired. COMPARISON: None. FINDINGS: Bones: No fractures or dislocations. No suspicious bony lesions. Moderate severe medial and patellofemoral compartment osteoarthritis. Mild lateral compartment osteoarthritis. Soft tissues: Nonspecific suprapatellar joint effusion. No suspicious soft tissue calcifications. IMPRESSION: No fracture. No acute osseous lesion. If symptoms and/or clinical suspicion for pathology persists, further assessment with repeat radiographs (7-10 days) or advanced imaging (e.g. CT, MRI or bone scan) may be helpful. Dictated by: Stephanie Reyes MD, PhD on 05/23/2019 at 15:29 Approved by: Stephanie Reyes MD, PhD on 05/23/2019 at 15:30 Left knee x-ray: Radiologist's impression: [address] [address] XRay Report Signed Patient: Khris Guaman CMR#: [id number] : [id number] Age/Sex: 68 / MDate of Service: 05/23/19 Loc: ED Accession Number: [id number] Procedure: XR knee LT 1to2V Ordering Provider: Ita AguileraP-BC PROCEDURE: XR KNEE LT 1TO2V INDICATIONS: pain sp fall TECHNIQUE: 2 views of the knee were acquired. COMPARISON: None. FINDINGS: Bones: No fractures or dislocations. No suspicious bony lesions. Moderate severe medial and patellofemoral compartment osteoarthritis. Soft tissues: Nonspecific joint effusion. No suspicious soft tissue calcifications. IMPRESSION: No fracture. No acute osseous lesion. If symptoms and/or clinical suspicion for pathology persists, further assessment with repeat radiographs (7-10 days) or advanced imaging (e.g. CT, MRI or bone scan) may be helpful. Dictated by: Stephanie Reyes MD, PhD on 05/23/2019 at 15:28 Approved by: Stephanie Reyes MD, PhD on 05/23/2019 at 15:29 Lumbar x-ray: Radiologist's impression: [address] [address] XRay Report Signed Patient: Khris Guaman CMR#: [id number] : 2At:[id number] Age/Sex: 68 / MDate of Service: 05/23/19 Loc: ED Accession Number: [id number] Procedure: XR lumbar spine 2-3V Ordering Provider: Ita AguileraP-BC PROCEDURE: XR LUMBAR SPINE 2-3V INDICATIONS: pain sp fall TECHNIQUE: 3 views of the lumbar spine were acquired. COMPARISON: None. FINDINGS: Bones: 5 [id number] vertebrae are present. There is normal bony alignment. No vertebral body compression fractures. No suspicious bony lesions. Mild multilevel degenerative disc disease. Soft tissues: Overlying bowel gas pattern is normal. No suspicious soft tissue calcifications. IMPRESSION: No fracture. No acute osseous lesion. If symptoms and/or clinical suspicion for pathology persists, evaluation with MRI may be helpful for further assessment. Dictated by: Stephanie Reyes MD, PhD on 05/23/2019 at 15:30 Approved by: Stephanie Reyes MD, PhD on 05/23/2019 at 15:30 T-spine x-ray: Radiologist's impression: [address] [address] XRay Report Signed Patient: Khris Guaman CMR#: [id number] : 2Acct:[id number] Age/Sex: 68 / MDate of Service: 05/23/19 Loc: ED Accession Number: [id number] Procedure: XR thoracic spine 2V Ordering Provider: Ita Aguilera-MUKUL PROCEDURE: XR THORACIC SPINE 2V INDICATIONS: pain sp fall TECHNIQUE: 2 views of the thoracic spine were acquired. COMPARISON: None. FINDINGS: Bones: No fractures or dislocations. No suspicious bony lesions. 12 pairs of ribs are noted, and appear intact where visualized. Soft tissues: No paravertebral stripe thickening. Surgical clips noted in the soft tissue of the right neck base. IMPRESSION: No fracture. No acute osseous lesion. If symptoms and/or clinical suspicion for pathology persists, evaluation with MRI may be helpful for further assessment. Dictated by: Stephanie Reyes MD, PhD on 05/23/2019 at 15:27 Approved by: Stephanie Reyes MD, PhD on 05/23/2019 at 15:27 [facility] Narrative Medical decision making narrative: The patient is a 68-year-old male who presents after a near fall off of a ladder in a pool. He states he does not know what happened, and had neck pains was placed in a C-collar as well as head and neck CTs obtained. The patient also complained of. Orthopedic pain including shoulder, bilateral knees so films were also obtained of this. [employer]INE from the incident came over to discuss what happened and she states she saw him stepped backwards, missed the step and fall back holding the pool assist with his right hand. She states he done his head under water, so a chest x-ray was obtained. He does have clear lung sounds in his no acute distress, with good oxygenation levels. I do believe that he has a concussion given his symptoms. I discussed at length that he needs to follow up with his PCP. Discussed going back to the ER for any acute concerns such as chest pain or shortness of breath. <Radhika Wilkinson DO - Last Filed: 05/24/19 07:14> Lab Data Urine Dip Bedside Urine Glucose 500 mg/dl Bedside Urine Bilirubin - Negative Bedside Urine Ketone - Negative Urine Specific [place] 1.010 Bedside Urine Occult Blood - Negative Bedside Urine pH 6.0 Bedside Urine Protein - Negative Bedside Urine Urobilinogen - Negative Bedside Urine Nitrite - Negative Bedside Urine Leukocytes - Negative Esterase Discharge Plan Departure Patient Disposition: Home Clinical Impression: Fall into swimming pool striking water surface causing other injury, initial encounter, Acute neck pain Back pain Qualifiers: Back pain location: low back pain Chronicity: acute Back pain laterality: bilateral Sciatica presence: without sciatica Qualified Code(s): M54.5 - Low back pain Bilateral knee pain Qualifiers: Chronicity: acute Qualified Code(s): M25.561 - Pain in right knee Acute shoulder pain Qualifiers: Laterality: bilateral Qualified Code(s): M25.511 - Pain in right shoulder Concussion Qualifiers: Encounter type: initial encounter Loss of consciousness presence/duration: without LOC Qualified Code(s): S06.0X0A - Concussion without loss of consciousness, initial encounter Discharge Date/Time: 05/23/19 18:09 Interventions: ED Discharge Assessment Last Done: 05/23/19 18:08 Instructions: DI for Concussion, DI for Low Back Pain, How to Prevent Falls, DI for Neck Pain, DI for Thoracic Back Pain Activity Restrictions/Additional Instructions: Today we did imaging on her head, neck, back, shoulder, and knees. Likely everything came back without acute abnormality. I believe you have a concussion given her symptoms. Please rest her brain, use [id number] medications as needed And able. Please come back to the emergency department for any acute concerns such as we discussed including incontinence of bowel, incontinence of bladder numbness in your groin, confusion etc. Of course come back to the emergency department for any acute concerns such as concern of heart attack or stroke. Please follow up with primary care provider in the next few days Prescriptions: New cyclobenzaprine 10 mg tablet 10 mg PO TID PRN (Reason: muscle spasm) Qty: 30 RF: 0 tramadol 50 mg tablet 50 mg PO Q8H PRN (Reason: pain) Qty: 7 RF: 0 No Action polyethylene glycol 3350 [Miralax] 119 GM powder 17 gm PO QDAYP Qty: 0 RF: 0 diclofenac sodium [Voltaren] 1 % gel 1 tj Topical Q4H MDD 16 G (4 doses) PRN (Reason: osteoarthritis) Qty: 0 RF: 0 sildenafil [Viagra] 100 MG tablet 100 mg PO PRN MDD 100 mg PRN (Reason: Sexual Activity) Qty: 0 RF: 0 allopurinol 300 MG tablet 300 mg PO DAILY Qty: 0 RF: 0 doxazosin [Cardura] 8 MG tablet 8 mg PO BEDTIME Qty: 0 RF: 0 amlodipine 10 mg tablet 10 mg PO DAILY RF: 0 atorvastatin [Lipitor] 40 mg tablet 40 mg PO BEDTIME RF: 0 bumetanide 2 mg tablet 6 mg PO BID RF: 0 tolterodine [Detrol LA] 4 mg capsule,extended release 24hr 4 mg PO DAILY RF: 0 fexofenadine [Aller-ease] 180 mg tablet 180 mg PO DAILY RF: 0 spironolactone 25 mg tablet 12.5 mg PO BID RF: 0 losartan 100 mg tablet 100 mg PO DAILY RF: 0 cholecalciferol (vitamin D3) 1,000 unit capsule 2,000 unit PO DAILY RF: 0 PreviDent 5000 Plus 1.1 % cream 1 applic dental DIRECTED RF: 0 Dexilant 60 mg capsule,biphase delayed releas 60 mg PO DAILY RF: 0 insulin aspart U-100 100 unit/mL Solution See Rx Instructions .ROUTE .COMPLEX RF: 0 vitamin B complex Tablet 1 tab PO DAILY RF: 0 capsaicin 0.025 % cream 1 applic topical PRN PRN (Reason: pain) RF: 0 lisinopril 5 mg Tablet 5 mg PO DAILY RF: 0 Lyrica 75 mg capsule 75 mg PO BID RF: 0 carboxymethylcell-glycerin(PF) 0.5-0.9 % Dropperette 1 applic ophthalmic (eye) QID RF: 0 glimepiride 4 mg Tablet 4 mg PO BID RF: 0 multivitamin with minerals Capsule 1 cap PO DAILY RF: 0 artificial saliva (cmce-lytes) [place] With Pump 1 spray PO PRN PRN (Reason: Dry Mouth) RF: 0 ipratropium-albuterol 0.5 mg-3 mg(2.5 mg base)/3 mL Solution For Nebulization 1 ea inhalation DIRECTED RF: 0 insulin glargine 100 unit/mL Solution 70 unit SUBCUT BEDTIME RF: 0 sennosides-docusate sodium 8.6-50 mg Tablet 1 tab PO DAILY RF: 0 chlorhexidine gluconate 4 % Liquid 1 applic TOPICAL DAILY RF: 0 chlorhexidine gluconate 0.12 % Mouthwash 15 ml MUCOUS MEMBRANE BID RF: 0 flaxseed oil 2 cap PO DAILY RF: 0 <Radhika Wilkinson, - Last Filed: 05/24/19 07:14> Cosign ED Attending Cosignature Attestation: I was immediately available in the department for consultation. Documentation has been reviewed. I agree with assessment and plan.
--- NOTE | 2019-05-23 19:27 | ED_ITS ---
HPI - Fall <Ita Aguilera LEAD PONY RIDER-BC - Last Filed: 05/23/19 19:33> General Chief Complaint: Fall Stated Complaint: Fell in pool off the ladder Time Seen by Provider: 05/23/19 14:08 Source: patient Mode of arrival: ambulatory Limitations: no limitations History of Present Illness HPI Narrative: The patient is a 68-year-old male former smoker who presents with a chief complaint of various pain after falling while doing physical therapy in the pool. He states he is going down the ladder, stepped and missed the step so we grabbed the side rail with his right arm. He states he did several ?c ontortions any thinks he might have hit his head. He states he does not remember the incident after he thinks he hit his head. He complains of neck pain, back pain, bilateral knee pain. He is also concerned about his left humerus as that is why he is in physical therapy, for that recovery. He complains of some lightheadedness and nausea. He states he ?feels funny.? He states that he slipped and missed the step and that is why he fell, no lightheadedness or dizziness or chest pain prior to the incident. The patient complains of back pain extending down his back. No incontinence of bowel, incontinence of bladder or saddle anesthesia. He denies any weakness or numbness. Related Data Home Medications Medication Instructions Recorded Confirmed polyethylene glycol 3350 [Miralax] 17 gm PO QDAYP #0 04/30/13 05/23/19 allopurinol 300 mg PO DAILY #0 04/16/17 05/23/19 diclofenac sodium [Voltaren] 1 tj TOPICAL Q4H PRN #0 MDD 16 G 04/16/17 05/23/19 (4 doses) doxazosin [Cardura] 8 mg PO BEDTIME #0 04/16/17 05/23/19 sildenafil [Viagra] 100 mg PO PRN PRN #0 MDD 100 mg 04/16/17 03/24/19 amlodipine 10 mg PO DAILY 03/24/19 05/23/19 artificial saliva (cmce-lytes) 1 spray PO PRN PRN 03/24/19 05/23/19 atorvastatin [Lipitor] 40 mg PO BEDTIME 03/24/19 05/23/19 bumetanide 6 mg PO BID 03/24/19 05/23/19 capsaicin 1 applic TOPICAL PRN PRN 03/24/19 05/23/19 carboxymethylcell-glycerin(PF) 1 applic OPHTHALMIC (EYE) QID 03/24/19 05/23/19 cholecalciferol (vitamin D3) 2,000 unit PO DAILY 03/24/19 05/23/19 dexlansoprazole [Dexilant] 60 mg PO DAILY 03/24/19 05/23/19 fexofenadine [Aller-ease] 180 mg PO DAILY 03/24/19 05/23/19 fluoride (sodium) [PreviDent 5000 1 applic DENTAL DIRECTED 03/24/19 03/24/19 Plus] glimepiride 4 mg PO BID 03/24/19 05/23/19 insulin aspart U-100 See Rx Instructions .ROUTE .COMPLEX 03/24/19 05/23/19 lisinopril 5 mg PO DAILY 03/24/19 05/23/19 losartan 100 mg PO DAILY 03/24/19 05/23/19 multivitamin with minerals 1 cap PO DAILY 03/24/19 05/23/19 pregabalin [Lyrica] 75 mg PO BID 03/24/19 03/24/19 spironolactone 12.5 mg PO BID 03/24/19 05/23/19 tolterodine [Detrol LA] 4 mg PO DAILY 03/24/19 05/23/19 vitamin B complex 1 tab PO DAILY 03/24/19 05/23/19 chlorhexidine gluconate 1 applic TOPICAL DAILY 05/23/19 05/23/19 chlorhexidine gluconate 15 ml MUCOUS MEMBRANE BID 05/23/19 05/23/19 flaxseed oil 2 cap PO DAILY 05/23/19 05/23/19 insulin glargine 70 unit SUBCUT BEDTIME 05/23/19 05/23/19 ipratropium-albuterol 1 ea INHALATION DIRECTED 05/23/19 05/23/19 sennosides-docusate sodium 1 tab PO DAILY 05/23/19 05/23/19 Previous Rx's Medication Instructions Recorded cyclobenzaprine 10 mg PO TID PRN #30 tab 05/23/19 tramadol 50 mg PO Q8H PRN #7 tab 05/23/19 Allergies Allergy/AdvReac Type Severity Reaction Status Date / Time No Known Drug Allergies Allergy Verified 05/23/19 13:26 Review of Systems <Ita WillyMASSIMO - Last Filed: 05/23/19 19:33> Review of Systems GENERAL: Denies chills, fatigue, malaise, fever, sweats. HEENT: Denies sinus pain, ear pain, sore throat, difficulty swallowing, dizziness. RESPIRATORY: Denies dyspnea, cough, wheezing, hemoptysis, sputum. CARDIOVASCULAR: Denies chest pain, palpitations, orthopnea, edema, GASTROINTESTINAL: Denies nausea, vomiting, abdominal pain, diarrhea, constipation, melena. : Denies dysuria, frequency, incontinence, hematuria, urinary retention. MUSCULOSKELETAL: See HPI SKIN: Denies rash, skin lesions, or other NEUROLOGIC: see HPI PSYCHIATRIC: No concerning psychosocial issues. 12 point review of systems is negative except for those stated above Exam <MASSIMO Waller - Last Filed: 05/23/19 19:33> Narrative Exam Narrative: GENERAL: Obese male in no acute distress HEAD: Atraumatic. Normocephalic. Slight tenderness to tendon portal palpation. EYES: Pupils equal round and reactive. Extraocular motions intact. No scleral icterus. No injection or drainage. ENT: Nose without bleeding, purulent drainage or septal hematoma. Throat without erythema, tonsillar hypertrophy or exudate. Uvula midline. Airway patent. NECK: Trachea midline. No JVD or lymphadenopathy. Supple, nontender, no meningeal signs. CARDIOVASCULAR: Regular rate and rhythm RESPIRATORY: Clear to auscultation. Breath sounds equal bilaterally. No wheezes, rales, or rhonchi. No cough. No increased respiratory effort. No accessory muscle use. GASTROINTESTINAL: Abdomen soft, non-tender, nondistended. No hepato- splenomegaly, or palpable masses. No guarding. Active bowel sounds all 4 quadrants. EXTREMITIES: Pain to palpation of bilateral knees, bilateral shoulders. Peripheral pulses intact all 4 extremities. Full range of motion noted bilateral knees, elbows etc. BACK: Nontender without deformity or crepitance. No flank tenderness. Midline pain to palpation of C T and L-spine. Cervical collar in place during exam. NEURO: AOx3. Strength is equal upper and lower extremities bilaterally. No gross cranial nerve deficit. SKIN: No rash or erythema. No ecchymosis noted on visible skin. Initial Vital Signs Initial Vital Signs: Vital Signs Temperature 97.1 F L 05/23/19 13:26 Pulse Rate 82 05/23/19 13:26 Respiratory Rate 18 05/23/19 13:26 Blood Pressure 148/74 H 05/23/19 13:26 Pulse Oximetry 97 05/23/19 13:26 <Radhika Wilkinson DO - Last Filed: 05/24/19 07:14> Initial Vital Signs Initial Vital Signs: Vital Signs Temperature 97.1 F L 05/23/19 13:26 Pulse Rate 82 05/23/19 13:26 Respiratory Rate 18 05/23/19 13:26 Blood Pressure 148/74 H 05/23/19 13:26 Pulse Oximetry 97 05/23/19 13:26 PFSH <SVEN Waller - Last Filed: 05/23/19 19:33> Medical History Constipation (Acute) GERD (gastroesophageal reflux disease) (Acute) HTN (hypertension) (Acute) Heart failure (Acute) Hypercholesteremia (Acute) Knee pain (Acute) Renal disease (Acute) Social History marital status: lives independently: Yes Smoking Status: Former smoker Social History marital status: lives independently: Yes Smoking Status: Former smoker Course <SVEN Waller - Last Filed: 05/23/19 19:33> Orders Ordered: ED Orders 05/23/19 14:26 XR knee LT 1to2V Stat XR knee RT 1to2V Stat XR lumbar spine 2-3V Stat XR thoracic spine 2V Stat 05/23/19 14:50 CT cervical spine wo con Stat CT head/brain wo con Stat 05/23/19 16:26 XR chest 2V Stat XR shoulder LT min 2V Stat Vital Signs - 8 hr 05/23/19 13:26 05/23/19 15:56 05/23/19 18:08 Temperature 97.1 F L Pulse Rate 82 70 71 Respiratory Rate 18 14 Blood Pressure 148/74 H 139/86 Blood Pressure [Right Arm] 143/74 H Pulse Oximetry 97 97 99 <Radhika Wilkinson DO - Last Filed: 05/24/19 07:14> Orders Ordered: ED Orders 05/23/19 14:26 XR knee LT 1to2V Stat XR knee RT 1to2V Stat XR lumbar spine 2-3V Stat XR thoracic spine 2V Stat 05/23/19 14:50 CT cervical spine wo con Stat CT head/brain wo con Stat 05/23/19 16:26 XR chest 2V Stat XR shoulder LT min 2V Stat Vital Signs - 8 hr 05/23/19 13:26 05/23/19 15:56 05/23/19 18:08 Temperature 97.1 F L Pulse Rate 82 70 71 Respiratory Rate 18 19 14 Blood Pressure 148/74 H 139/86 Blood Pressure [Right Arm] 143/74 H Pulse Oximetry 97 97 99 MDM - Fall <SVEN Waller - Last Filed: 05/23/19 19:33> Lab Data Urine Dip Bedside Urine Glucose 500 mg/dl Bedside Urine Bilirubin - Negative Bedside Urine Ketone - Negative Urine Specific [place] 1.010 Bedside Urine Occult Blood - Negative Bedside Urine pH 6.0 Bedside Urine Protein - Negative Bedside Urine Urobilinogen - Negative Bedside Urine Nitrite - Negative Bedside Urine Leukocytes - Negative Esterase Imaging Data Chest x-ray: Radiologist's impression: Khris Guaman 68 M [address] [address] XRay Report Signed Patient: Khris Guaman CMR#: [id number] : 1950cct:[id number] Age/Sex: 68 / MDate of Service: 05/23/19 Loc: ED Accession Number: [id number] Procedure: XR chest 2V Ordering Provider: Ita Aguilera PROCEDURE: XR CHEST 2V INDICATIONS: possible aspiration per fall witness TECHNIQUE: 2 views of the chest were acquired. COMPARISON: [facility], [place], XR CHEST 1V, 03/24/2019, 9:31. FINDINGS: Surgical changes and devices: None. Lungs and pleura: Mild increased perihilar lung markings are present without lobar consolidation, effusion, or pneumothorax. Mediastinum: Mediastinal contours are normal. Heart size is normal. Bones and chest wall: No suspicious bony abnormalities. Degenerative changes of the spine and shoulders are not adequately evaluated. Soft tissues appear unremarkable. IMPRESSION: Prominent perihilar lung markings may represent vascular congestion. Atelectasis or aspiration are difficult to exclude. Dictated by: Damion Quiros M.D. on 05/23/2019 at 15:58 Approved by: Damion Quiros M.D. on 05/23/2019 at 16:02 Shoulder x-ray: Radiologist's impression: Khris Guaman C 68 M [address] [address] XRay Report Signed Patient: Khris Guaman CMR#: [id number] : 1950cct:[id number] Age/Sex: 68 / MDate of Service: 05/23/19 Loc: ED Accession Number: [id number] Procedure: XR chest 2V Ordering Provider: Ita Aguilera-MUKUL PROCEDURE: XR CHEST 2V INDICATIONS: possible aspiration per fall witness TECHNIQUE: 2 views of the chest were acquired. COMPARISON: [facility], , XR CHEST 1V, 03/24/2019, 9:31. FINDINGS: Surgical changes and devices: None. Lungs and pleura: Mild increased perihilar lung markings are present without lobar consolidation, effusion, or pneumothorax. Mediastinum: Mediastinal contours are normal. Heart size is normal. Bones and chest wall: No suspicious bony abnormalities. Degenerative changes of the spine and shoulders are not adequately evaluated. Soft tissues appear unremarkable. IMPRESSION: Prominent perihilar lung markings may represent vascular congestion. Atelectasis or aspiration are difficult to exclude. Dictated by: Damion Quiros M.D. on 05/23/2019 at 15:58 Approved by: Damion Quiros M.D. on 05/23/2019 at 16:02 CT C-spine: Radiologist's impression: [address] [address] [address] Scan Report Signed Patient: Khris Guaman CMR#: [id number] : 1950cct:[id number] Age/Sex: 68 / MDate of Service: 05/23/19 Loc: ED Accession Number: [id number] Procedure: CT cervical spine wo con Ordering Provider: Ita Aguilera PROCEDURE: CT CERVICAL SPINE WO CON INDICATIONS: pain sp fall TECHNIQUE: Noncontrast 3 mm thick sections acquired from the skull base to the T4 level. Sagittal and coronal reformats were then constructed. For radiation dose reduction, the following was used: automated exposure control, adjustment of mA and/or kV according to patient size. COMPARISON: [facility], CT, CT CERVICAL SPINE WO CON, 03/24/2019, 9:37. FINDINGS: Image quality: Excellent. Bones: No fractures or dislocations. Visualized superior ribs are intact. Relatively prominent degenerative changes are seen, with fusion at the C4-C5 level. Moderate to severe disc space narrowing can be seen at C5-C6 and C6-C7. Soft tissues: Prevertebral soft tissues are normal in thickness. No paravertebral hematomas. No apical pneumothoraces. The cervix changes of the right neck can be seen. IMPRESSION: No acute fractures are seen. Prominent degenerative changes are seen, including vertebral body fusion at C4- C5. Prior postoperative change of the right neck noted. Dictated by: Valerio Tomlinson M.D. on 05/23/2019 at 14:21 Approved by: Valerio Tomlinson M.D. on 05/23/2019 at 14:22 CT scan - head: Radiologist's impression: [place] [address] CT Scan Report Signed Patient: Khris Guaman CMR#: [id number] : 2Acct:[id number] Age/Sex: 68 / MDate of Service: 05/23/19 Loc: ED Accession Number: [id number] Procedure: CT head/brain wo con Ordering Provider: Ita Aguilera PROCEDURE: CT HEAD/BRAIN WO CON INDICATIONS: fall TECHNIQUE: Noncontrast 4.5 mm thick angled axial sections acquired from the foramen magnum to the vertex, with coronal and sagittal reformats. For radiation dose reduction, the following was used: automated exposure control, adjustment of mA and/or kV according to patient size. COMPARISON: [facility], CT, SINUS SCREEN, 03/01/2010, 10:01. [facility], CT, CT HEAD/BRAIN WO CON, 11/14/2018, 1:21. [facility], CT, CT CERVICAL SPINE WO CON, 05/23/2019, 14:51. [facility], CT, CT HEAD/BRAIN WO CON, 03/24/2019, 9:37. FINDINGS: Image quality: Excellent. CSF spaces: Basal cisterns are patent. No extra-axial fluid collections. The ventricles are symmetric in size and shape. Brain: No intracranial bleeds or masses. There is cerebral volume loss for age, with resultant ventricular and sulcal prominence. There are periventricular and deep white matter chronic small vessel ischemic changes. There is intracranial internal carotid artery atherosclerosis. Skull and face: There is a mild scalp hematoma seen posteriorly and on the right, as on series 2 image 23. No underlying calvarial fracture can be seen. Calvarium and visualized facial bones appear intact, without suspicious lesions. Sinuses: Visualized sinuses and mastoids are clear. IMPRESSION: Right posterior scalp hematoma, without acute intracranial hemorrhage or displaced calvarial fracture. Note is made of age-appropriate brain parenchymal volume loss and chronic small vessel ischemic changes. Dictated by: Valerio Tomlinson M.D. on 05/23/2019 at 14:20 Approved by: Valerio Tomlinson M.D. on 05/23/2019 at 14:21 Right knee x-ray: Radiologist's impression: [place] [address] XRay Report Signed Patient: Khris Guaman CMR#: [id number] : 2Acct:[id number] Age/Sex: 68 / MDate of Service: 05/23/19 Loc: ED Accession Number: [id number] Procedure: XR knee RT 1to2V Ordering Provider: Ita Aguilera- PROCEDURE: XR KNEE RT 1TO2V INDICATIONS: pain sp fall TECHNIQUE: 2 views of the knee were acquired. COMPARISON: None. FINDINGS: Bones: No fractures or dislocations. No suspicious bony lesions. Moderate severe medial and patellofemoral compartment osteoarthritis. Mild lateral compartment osteoarthritis. Soft tissues: Nonspecific suprapatellar joint effusion. No suspicious soft tissue calcifications. IMPRESSION: No fracture. No acute osseous lesion. If symptoms and/or clinical suspicion for pathology persists, further assessment with repeat radiographs (7-10 days) or advanced imaging (e.g. CT, MRI or bone scan) may be helpful. Dictated by: Stephanie Reyes MD, PhD on 05/23/2019 at 15:29 Approved by: Stephanie Reyes MD, PhD on 05/23/2019 at 15:30 Left knee x-ray: Radiologist's impression: [address] [address] XRay Report Signed Patient: Khris Guaman CMR#: [id number] : [id number] Age/Sex: 68 / MDate of Service: 05/23/19 Loc: ED Accession Number: [id number] Procedure: XR knee LT 1to2V Ordering Provider: Ita Aguilera-BC PROCEDURE: XR KNEE LT 1TO2V INDICATIONS: pain sp fall TECHNIQUE: 2 views of the knee were acquired. COMPARISON: None. FINDINGS: Bones: No fractures or dislocations. No suspicious bony lesions. Moderate severe medial and patellofemoral compartment osteoarthritis. Soft tissues: Nonspecific joint effusion. No suspicious soft tissue ca lcifications. IMPRESSION: No fracture. No acute osseous lesion. If symptoms and/or clinical suspicion for pathology persists, further assessment with repeat radiographs (7-10 days) or advanced imaging (e.g. CT, MRI or bone scan) may be helpful. Dictated by: Stephanie Reyes MD, PhD on 05/23/2019 at 15:28 Approved by: Stephanie Reyes MD, PhD on 05/23/2019 at 15:29 Lumbar x-ray: Radiologist's impression: [address] [address] XRay Report Signed Patient: Khris Guaman CMR#: [id number] : 2At:[id number] Age/Sex: 68 / MDate of Service: 05/23/19 Loc: ED Accession Number: [id number] Procedure: XR lumbar spine 2-3V Ordering Provider: Ita Aguilera-BC PROCEDURE: XR LUMBAR SPINE 2-3V INDICATIONS: pain sp fall TECHNIQUE: 3 views of the lumbar spine were acquired. COMPARISON: None. FINDINGS: Bones: 5 [id number] vertebrae are present. There is normal bony alignment. No vertebral body compression fractures. No suspicious bony lesions. Mild multilevel degenerative disc disease. Soft tissues: Overlying bowel gas pattern is normal. No suspicious soft tissue calcifications. IMPRESSION: No fracture. No acute osseous lesion. If symptoms and/or clinical suspicion for pathology persists, evaluation with MRI may be helpful for further assessment. Dictated by: Stephanie Reyes MD, PhD on 05/23/2019 at 15:30 Approved by: Stephanie Reyes MD, PhD on 05/23/2019 at 15:30 T-spine x-ray: Radiologist's impression: [address] [address] XRay Report Signed Patient: Khris Guaman CMR#: [id number] : 1950cct:[id number] Age/Sex: 68 / MDate of Service: 05/23/19 Loc: ED Accession Number: [id number] Procedure: XR thoracic spine 2V Ordering Provider: Ita Aguilera PROCEDURE: XR THORACIC SPINE 2V INDICATIONS: pain sp fall TECHNIQUE: 2 views of the thoracic spine were acquired. COMPARISON: None. FINDINGS: Bones: No fractures or dislocations. No suspicious bony lesions. 12 pairs of ribs are noted, and appear intact where visualized. Soft tissues: No paravertebral stripe thickening. Surgical clips noted in the soft tissue of the right neck base. IMPRESSION: No fracture. No acute osseous lesion. If symptoms and/or clinical suspicion for pathology persists, evaluation with MRI may be helpful for further assessment. Dictated by: Stephanie Reyes MD, PhD on 05/23/2019 at 15:27 Approved by: Stephanie Reyes MD, PhD on 05/23/2019 at 15:27 [facility] Narrative Medical decision making narrative: The patient is a 68-year-old male who presents after a near fall off of a ladder in a pool. He states he does not know what happened, and had neck pains was placed in a C-collar as well as head and neck CTs obtained. The patient also complained of. Orthopedic pain including shoulder, bilateral knees so films were also obtained of this. LADLE LINER HELPER from the incident came over to discuss what happened and she states she saw him stepped backwards, missed the step and fall back holding the pool assist with his right hand. She states he done his head under water, so a chest x-ray was obtained. He does have clear lung sounds in his no acute distress, with good oxygenation levels. I do believe that he has a concussion given his symptoms. I discussed at length that he needs to follow up with his PCP. Discussed going back to the ER for any acute concerns such as chest pain or shortness of breath. <Radhika DO Minh - Last Filed: 05/24/19 07:14> Lab Data Urine Dip Bedside Urine Glucose 500 mg/dl Bedside Urine Bilirubin - Negative Bedside Urine Ketone - Negative Urine Specific [place] 1.010 Bedside Urine Occult Blood - Negative Bedside Urine pH 6.0 Bedside Urine Protein - Negative Bedside Urine Urobilinogen - Negative Bedside Urine Nitrite - Negative Bedside Urine Leukocytes - Negative Esterase Discharge Plan Departure Patient Disposition: Home Clinical Impression: Fall into swimming pool striking water surface causing other injury, initial encounter, Acute neck pain Back pain Qualifiers: Back pain location: low back pain Chronicity: acute Back pain laterality: bilat eral Sciatica presence: without sciatica Qualified Code(s): M54.5 - Low back pain Bilateral knee pain Qualifiers: Chronicity: acute Qualified Code(s): M25.561 - Pain in right knee Acute shoulder pain Qualifiers: Laterality: bilateral Qualified Code(s): M25.511 - Pain in right shoulder Concussion Qualifiers: Encounter type: initial encounter Loss of consciousness presence/duration: without LOC Qualified Code(s): S06.0X0A - Concussion without loss of consciousness, initial encounter Discharge Date/Time: 05/23/19 18:09 Interventions: ED Discharge Assessment Last Done: 05/23/19 18:08 Instructions: DI for Concussion, DI for Low Back Pain, How to Prevent Falls, DI for Neck Pain, DI for Thoracic Back Pain Activity Restrictions/Additional Instructions: Today we did imaging on her head, neck, back, shoulder, and knees. Likely everything came back without acute abnormality. I believe you have a concussion given her symptoms. Please rest her brain, use [id number] medications as needed And able. Please come back to the emergency department for any acute concerns such as we discussed including incontinence of bowel, incontinence of bladder numbness in your groin, confusion etc. Of course come back to the emergency department for any acute concerns such as concern of heart attack or stroke. Please follow up with primary care provider in the next few days Prescriptions: New cyclobenzaprine 10 mg tablet 10 mg PO TID PRN (Reason: muscle spasm) Qty: 30 RF: 0 tramadol 50 mg tablet 50 mg PO Q8H PRN (Reason: pain) Qty: 7 RF: 0 No Action polyethylene glycol 3350 [Miralax] 119 GM powder 17 gm PO QDAYP Qty: 0 RF: 0 diclofenac sodium [Voltaren] 1 % gel 1 tj Topical Q4H MDD 16 G (4 doses) PRN (Reason: osteoarthritis) Qty: 0 RF: 0 sildenafil [Viagra] 100 MG tablet 100 mg PO PRN MDD 100 mg PRN (Reason: Sexual Activity) Qty: 0 RF: 0 allopurinol 300 MG tablet 300 mg PO DAILY Qty: 0 RF: 0 doxazosin [Cardura] 8 MG tablet 8 mg PO BEDTIME Qty: 0 RF: 0 amlodipine 10 mg tablet 10 mg PO DAILY RF: 0 atorvastatin [Lipitor] 40 mg tablet 40 mg PO BEDTIME RF: 0 bumetanide 2 mg tablet 6 mg PO BID RF: 0 tolterodine [Detrol LA] 4 mg capsule,extended release 24hr 4 mg PO DAILY RF: 0 fexofenadine [Aller-ease] 180 mg tablet 180 mg PO DAILY RF: 0 spironolactone 25 mg tablet 12.5 mg PO BID RF: 0 losartan 100 mg tablet 100 mg PO DAILY RF: 0 cholecalciferol (vitamin D3) 1,000 unit capsule 2,000 unit PO DAILY RF: 0 PreviDent 5000 Plus 1.1 % cream 1 applic dental DIRECTED RF: 0 Dexilant 60 mg capsule,biphase delayed releas 60 mg PO DAILY RF: 0 insulin aspart U-100 100 unit/mL Solution See Rx Instructions .ROUTE .COMPLEX RF: 0 vitamin B complex Tablet 1 tab PO DAILY RF: 0 capsaicin 0.025 % cream 1 applic topical PRN PRN (Reason: pain) RF: 0 lisinopril 5 mg Tablet 5 mg PO DAILY RF: 0 Lyrica 75 mg capsule 75 mg PO BID RF: 0 carboxymethylcell-glycerin(PF) 0.5-0.9 % [place] 1 applic ophthalmic (eye) QID RF: 0 glimepiride 4 mg Tablet 4 mg PO BID RF: 0 multivitamin with minerals Capsule 1 cap PO DAILY RF: 0 artificial saliva (cmce-lytes) [place] With Pump 1 spray PO PRN PRN (Reason: Dry Mouth) RF: 0 ipratropium-albuterol 0.5 mg-3 mg(2.5 mg base)/3 mL Solution For Nebulization 1 ea inhalation DIRECTED RF: 0 insulin glargine 100 unit/mL Solution 70 unit SUBCUT BEDTIME RF: 0 sennosides-docusate sodium 8.6-50 mg Tablet 1 tab PO DAILY RF: 0 chlorhexidine gluconate 4 % Liquid 1 applic TOPICAL DAILY RF: 0 chlorhexidine gluconate 0.12 % Mouthwash 15 ml MUCOUS MEMBRANE BID RF: 0 flaxseed oil 2 cap PO DAILY RF: 0 <Radhika Wilkinson, - Last Filed: 05/24/19 07:14> Cosign ED Attending Cosignature Attestation: I was immediately available in the department for consultation. Documentation has been reviewed. I agree with assessment and plan.
== END 2019-05-23 18:09 | disposition home or self-care (01) ==
PROVIDERS: Emergency Provider Nurse Practitioner Family
DX: S06.0X0A Concussion without loss of consciousness, initial encounter (principal); M54.5 Low back pain; M54.2 Cervicalgia; M25.561 Pain in right knee; M25.511 Pain in right shoulder; W16.012A Fall into swimming pool striking water surface causing other injury, initial encounter
CPT/HCPCS: 70450; 71046; 72070; 72100; 72125; 73030; 73560; 81003; 99283; 99284

== ENCOUNTER 2019-06-01 13:00 | Outpatient (RCR) | payer MEDICARE, OTHER, SELFPAY ==
--- NOTE | 2019-04-27 19:02 | PT.OIE ---
Current Diagnoses Bilateral primary osteoarthritis of knee (04/27/19) Primary osteoarthritis, left shoulder (04/27/19) Difficulty in walking, not elsewhere classified (04/27/19) Abnormal posture (04/27/19) Weakness (04/27/19) Unspecified fracture of upper end of left humerus, initial encounter for closed fracture (04/27/19) Past Medical History (Last Reviewed 03/24/19 @ 09:27 by Ita Ramirez DO) Constipation (Acute) GERD (gastroesophageal reflux disease) (Acute) HTN (hypertension) (Acute) Heart failure (Acute) Hypercholesteremia (Acute) Knee pain (Acute) Renal disease (Acute) Provider Visit Care Team Role Provider Type Gaurang Sam MD Attending Provider Physician Specialty: Orthopedic Surgery Address: [address] [place] [address], [id number] Email: [email or web address] Physical Therapy Initial Evaluation PT-OP-A Visit Information Start: 04/20/19 17:04 Freq: Status: Active Protocol: Document 04/27/19 09:06 [facility] (Rec: 04/27/19 10:21 [facility] [id number]) Out-Patient Physical Therapy Visit Information Visit Information Visit Type Initial Evaluation Visit Start Time 09:01 Visit Stop Time 09:48 Total Visit Minutes 47 Visit Number 1 Number of MARKETING COMMUNITY LIAISON Visits 0 PT-OP-B Current Condition Start: 04/20/19 17:04 Freq: Status: Active Protocol: Document 04/27/19 09:06 [facility] (Rec: 04/27/19 10:21 [facility] [id number]) Current Condition History of Current Condition Onset Date 03/24 Current Complaints L shoulder pain & knee pain History of Current Condition Pt reports L humerus fx and was put into a sling initially. Pt has been released from the sling at this time and was told to do small circles. Pt had a fall which caused the fracture. He thinks he may have gotten lightheaded because he blacked out when he fell. Pt reports he also injured his L knee and it feels like his knee locks up when he sits for a long time. Reports his knee is worse now then where it was before. Pt reports he does have a walker and a cane at home, which he sometimes uses. Pt reports he has gained weight since his fall, but was doing well with losing weight prior to this. Pt reports he has difficulty getting into the car and getting the seat belt set up and door closed. Pt reports he has had difficulty bathing and has difficulty reaching behind him and difficulty to LE. Pt reports he has to step up to his shower and he has a sliding door to get in. He does not have chair in there at this time and he has his help him with showering. Pt reports the MD told him the shoulder was mending. He is unsure how much he is allowed to do. He said he doesn't really have any range so he can't move his arm anyways. Reports he has burning sensation into med arm/elbow. Per MD phone call: Pt allowed gentle PROM & AAROM exercsies only at this time. Another call out re: if pt needs to wear sling Prior Treatments and Tests Injections for knees & LB; chiropractor for alignment of back & neck -has gone less frequently since fx shoulder Personal Factors Other Personal Factors That May Effect Heart failure, HTN, SOB, Therapy/Recovery neuropathy in hands and feet, diabetes, LBP with sciatica, neck pain, depression PT-OP-C Subjective Start: 04/20/19 17:04 Freq: Status: Active Protocol: Document 04/27/19 09:06 [facility] (Rec: 04/27/19 10:21 [facility] [id number]) Patient Questionnaires Lower Extremity Functional Scale LEFS Score 13 LEFS Impairment 80 to 99% Impaired (Score 1-16 ) Quick Dash- Upper Extremity Quick Dash UE Score 81.8 OP-PT Pain Assessment Location L>R knee Pain Location Details ant medial L knee, ant R knee along jt line Intensity 7 Scale Used Numeric (1 - 10) Description- Other locking of L knee Frequency Constant Pain Aggravating Factors Walking Other Pain Aggravating Factors sitting for a while then trying to stand, laying down Pain Alleviating Factors Heat Other Pain Alleviating Factors gentle motion L arm Pain Location Details L proximal brachium Intensity 5 Scale Used Numeric (1 - 10) Description Burning Sharp Description- Other at worst 10/10 Frequency Constant Radiating Location burning into med brachium Other Pain Aggravating Factors anything that requires movement, holding things Pain Alleviating Factors Heat PT-OP-G Mobility & Gait Start: 04/20/19 17:04 Freq: Status: Active Protocol: Document 04/27/19 09:06 [facility] (Rec: 04/27/19 10:21 [facility] [id number]) OP Gait Assessment Comments Gait Comments Pt walks at slow pace with lat leaning with elbow bent into sling position PT-OP-J Posture/Palpation/Skin Start: 04/20/19 17:04 Freq: Status: Active Protocol: Document 04/27/19 09:06 [facility] (Rec: 04/27/19 10:21 [facility] [id number]) Posture Evaluation Comments Posture Comments fwd head & rounded shoulers PT-OP-K Range of Motion Start: 04/20/19 17:04 Freq: Status: Active Protocol: Document 04/27/19 09:06 [facility] (Rec: 04/27/19 10:21 [facility] [id number]) Shoulder Goniometric Range of Motion Shoulder Left Passive Flexion 10 Abduction 14 Elbow/Forearm Range of Motion Elbow/Forearm Left Passive Elbow Flexion (degrees) 85 Elbow Extension (degrees) 45 PT-OP-M Strength Start: 04/20/19 17:04 Freq: Status: Active Protocol: Document 04/27/19 09:06 [facility] (Rec: 04/27/19 10:21 [facility] [id number]) Hip Strength Hip Manual Muscle Testing Left Flexion (L2) 3+ Fair+ Right Flexion (L2) 4- Good- Knee Strength Knee Manual Muscle Testing Right Flexion (S2) 4+ Good+ Extension (L3) 4+ Good+ Left Flexion (S2) 3+ Fair+ Extension (L3) 4 Good Ankle/Foot Strength Ankle and Foot Manual Muscle Testing Right Dorsiflexion (L4) 4+ Good+ Left Dorsiflexion (L4) 4- Good- PT-OP-Q Treatments Start: 04/20/19 17:04 Freq: Status: Active Protocol: Document 04/27/19 09:06 [facility] (Rec: 04/27/19 10:21 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 (Rec: 04/27/19 10:21 [facility] [id number]) Physical Therapy Assessment Rehab Potential Rehabilitation Potential Good Evaluation Complexity Number of Personal Factors/Comorbidities 3 or More Number of Body Systems Impaired 4 or More Clinical Presentation at Evaluation Evolving Impairments Impairments Activity Tolerance Balance Functional Activities Functional Mobility Gait Pain Posture ROM Soft Tissue Mobility Strength Goals Three Impairment DASH Short Term Goal (STG) Pt will improve score to 65 to show improvement in functional ability. STG Duration 05/28/19 Shipwright Helper Goal (LTG) Pt will ijmprove his score to 50 in order to show progress with his ability to participate in functional activties at home. LTG Duration 06/28/19 Two Impairment LE strength Short Term Goal (STG) Pt will be indep with HEP in order to be able to indep work on his strength separate of PT sessions. STG Duration 05/28/19 Mcfp Goal (LTG) Pt will in LE strength to grossly 4+/5 B in order to be able to go from sit to stand without inc pain in knees. LTG Duration 06/28/29 One Impairment ROM Short Term Goal (STG) Pt will improve PROM to 50% of typical range and will be able to rest arm at side in order to improve his resting posture and gait mechanics. STG Duration 05/28/19 Mcfp Goal (LTG) Pt will have AROM to within 50 % normal limits in order to allow him to participate in his ADLs (dressing and bathing ) and household tasks without assistance. LTG Duration 06/28/19 Assessment Summary Assessment Pt presents s/p L humerus fx & inc pain in L knee after a fall on 03/24/19 likely d/t lightheadness. He has significant pain in L knee and L shoulder at this time that is limiting his ability to participate in typical daily tasks. He is unable to tolerate even small amounts of PROM at this time and would benefit from skilled PT to address his ROM limitations and evenually strength of LUE. His LLE has significant dec strength, which is likely part of what limits his ability to walk and do other activtiies involving his LEs. Physical Therapy Plan Frequency and Duration Frequency of Treatment 1-2x/week Duration of Treatment 2 months Plan of Care Start Date 04/27/19 Plan of Care End Date 06/28/19 Therapeutic Interventions Therapeutic Interventions Aquatic Therapy Balance Training Gait Training Home Exercise Program Joint Mobilizations Manual Therapy Neuromuscular Re-education Patient/Caregiver Education Self-Care/Home Management Soft Tissue Mobilization Taping Therapeutic Activities Therapeutic Exercises Next Visit Focus/Plan Next Note Type Treatment Note Next Visit Plan Work on gradual progression of L shoulder ROM
--- NOTE | 2019-04-27 19:02 | PT.OPPOC ---
Current Diagnoses Bilateral primary osteoarthritis of knee (04/27/19) Primary osteoarthritis, left shoulder (04/27/19) Difficulty in walking, not elsewhere classified (04/27/19) Abnormal posture (04/27/19) Weakness (04/27/19) Unspecified fracture of upper end of left humerus, initial encounter for closed fracture (04/27/19) Provider Visit Care Team Role Provider Type Gaurang Sam MD Attending Provider Physician Specialty: Orthopedic Surgery Address: [address] [place] [address], [id number] Email: [email or web address] Plan Of Care PT-OP-T Assessment and Plan Start: 04/20/19 17:04 Freq: Status: Active Protocol: Document 04/27/19 09:06 [facility] (Rec: 04/27/19 10:21 [facility] [id number]) Physical Therapy Assessment Rehab Potential Rehabilitation Potential Good Evaluation Complexity Number of Personal Factors/Comorbidities 3 or More Number of Body Systems Impaired 4 or More Clinical Presentation at Evaluation Evolving Impairments Impairments Activity Tolerance Balance Functional Activities Functional Mobility Gait Pain Posture ROM Soft Tissue Mobility Strength Goals Three Impairment DASH Short Term Goal (STG) Pt will improve score to 65 to show improvement in functional ability. STG Duration 05/28/19 Cement Sack Breaker Goal (LTG) Pt will ijmprove his score to 50 in order to show progress with his ability to participate in functional activties at home. LTG Duration 06/28/19 Two Impairment LE strength Short Term Goal (STG) Pt will be indep with [facility] in order to be able to indep work on his strength separate of PT sessions. STG Duration 05/28/19 Jail Goal (LTG) Pt will in LE strength to grossly 4+/5 B in order to be able to go from sit to stand without inc pain in knees. LTG Duration 06/28/29 One Impairment ROM Short Term Goal (STG) Pt will improve PROM to 50% of typical range and will be able to rest arm at side in order to improve his resting posture and gait mechanics. STG Duration 05/28/19 Cement Sack Breaker Goal (LTG) Pt will have AROM to within 50 % normal limits in order to allow him to participate in his ADLs (dressing and bathing ) and household tasks without assistance. LTG Duration 06/28/19 Assessment Summary Assessment Pt presents s/p L humerus fx & inc pain in L knee after a fall on 03/24/19 likely d/t lightheadness. He has significant pain in L knee and L shoulder at this time that is limiting his ability to participate in typical daily tasks. He is unable to tolerate even small amounts of PROM at this time and would benefit from skilled PT to address his ROM limitations and evenually strength of LUE. His LLE has significant dec strength, which is likely part of what limits his ability to walk and do other activtiies involving his LEs. Physical Therapy Plan Frequency and Duration Frequency of Treatment 1-2x/week Duration of Treatment 2 months Plan of Care Start Date 04/27/19 Plan of Care End Date 06/28/19 Therapeutic Interventions Therapeutic Interventions Aquatic Therapy Balance Training Gait Training Home Exercise Program Joint Mobilizations Manual Therapy Neuromuscular Re-education Patient/Caregiver Education Self-Care/Home Management Soft Tissue Mobilization Taping Therapeutic Activities Therapeutic Exercises Next Visit Focus/Plan Next Note Type Treatment Note Next Visit Plan Work on gradual progression of L shoulder ROM Plan of Care Dates Plan of Care Start Date 04/27/19 Plan of Care End Date 06/28/19 Please Sign and Return: I have reviewed this Plan of Care and certify that the skilled therapy services above are required to meet the patient?s needs. Physician Signature Date Printed Name and Credentials Clinical Instructor Signature Printed Name and Credentials
--- NOTE | 2019-05-04 14:56 | PT-OP ANOTE ---
Cancelled due to having another appointment at same time.
--- NOTE | 2019-05-09 15:41 | PT.OTN ---
Current Diagnoses Bilateral primary osteoarthritis of knee (05/09/19) Primary osteoarthritis, left shoulder (05/09/19) Difficulty in walking, not elsewhere classified (05/09/19) Abnormal posture (05/09/19) Weakness (05/09/19) Unspecified fracture of upper end of left humerus, initial encounter for closed fracture (05/09/19) Physical Therapy Treatment Note PT-OP-A Visit Information Start: 04/20/19 17:04 Freq: Status: Active Protocol: Document 05/09/19 13:00 [facility] (Rec: 05/09/19 15:25 [facility] [id number]) Out-Patient Physical Therapy Visit Information Visit Information Visit Type Treatment Note Visit Start Time 13:00 Visit Stop Time 13:45 Total Visit Minutes 40 Visit Number 2 Number of NAVAL SCIENCE TEACHER Visits 1 PT-OP-B Current Condition Start: 04/20/19 17:04 Freq: Status: Active Protocol: Document 04/27/19 09:06 [facility] (Rec: 04/27/19 10:21 [facility] [id number]) Current Condition History of Current Condition Onset Date 03/24 Current Complaints L shoulder pain & knee pain History of Current Condition Pt reports L humerus fx and was put into a sling initially. Pt has been released from the sling at this time and was told to do small circles. Pt had a fall which caused the fracture. He thinks he may have gotten lightheaded because he blacked out when he fell. Pt reports he also injured his L knee and it feels like his knee locks up when he sits for a long time. Reports his knee is worse now then where it was before. Pt reports he does have a walker and a cane at home, which he sometimes uses. Pt reports he has gained weight since his fall, but was doing well with losing weight prior to this. Pt reports he has difficulty getting into the car and getting the seat belt set up and door closed. Pt reports he has had difficulty bathing and has difficulty reaching behind him and difficulty to LE. Pt reports he has to step up to his shower and he has a sliding door to get in. He does not have chair in there at this time and he has his help him with showering. Pt reports the MD told him the shoulder was mending. He is unsure how much he is allowed to do. He said he doesn't really have any range so he can't move his arm anyways. Reports he has burning sensation into med arm/elbow. Per MD phone call: Pt allowed gentle PROM & AAROM exercsies only at this time. Another call out re: if pt needs to wear sling Prior Treatments and Tests Injections for knees & LB; chiropractor for alignment of back & neck -has gone less frequently since fx shoulder Personal Factors Other Personal Factors That May Effect Heart failure, HTN, SOB, Therapy/Recovery neuropathy in hands and feet, diabetes, LBP with sciatica, neck pain, depression PT-OP-C Subjective Start: 04/20/19 17:04 Freq: Status: Active Protocol: Document 05/09/19 15:39 [facility] (Rec: 05/09/19 15:41 [facility] [id number]) OP-PT Subjective Patient Comments Patient Comments pt states his shoulder movement is limited and painful when he tries to lift it out to side. Pain radiates down to elbow at times. Says he wants to be very careful so as to promote healing and not injure it further. PT-OP-G Mobility & Gait Start: 04/20/19 17:04 Freq: Status: Active Protocol: Document 04/27/19 09:06 [facility] (Rec: 04/27/19 10:21 [facility] [id number]) OP Gait Assessment Comments Gait Comments Pt walks at slow pace with lat leaning with elbow bent into sling position PT-OP-J Posture/Palpation/Skin Start: 04/20/19 17:04 Freq: Status: Active Protocol: Document 04/27/19 09:06 [facility] (Rec: 04/27/19 10:21 [facility] [id number]) Posture Evaluation Comments Posture Comments fwd head & rounded shoulers PT-OP-K Range of Motion Start: 04/20/19 17:04 Freq: Status: Active Protocol: Document 04/27/19 09:06 [facility] (Rec: 04/27/19 10:21 [facility] [id number]) Shoulder Goniometric Range of Motion Shoulder Left Passive Flexion 10 Abduction 14 Elbow/Forearm Range of Motion Elbow/Forearm Left Passive Elbow Flexion (degrees) 85 Elbow Extension (degrees) 45 PT-OP-M Strength Start: 04/20/19 17:04 Freq: Status: Active Protocol: Document 04/27/19 09:06 [facility] (Rec: 04/27/19 10:21 [facility] [id number]) Hip Strength Hip Manual Muscle Testing Left Flexion (L2) 3+ Fair+ Right Flexion (L2) 4- Good- Knee Strength Knee Manual Muscle Testing Right Flexion (S2) 4+ Good+ Extension (L3) 4+ Good+ Left Flexion (S2) 3+ Fair+ Extension (L3) 4 Good Ankle/Foot Strength Ankle and Foot Manual Muscle Testing Right Dorsiflexion (L4) 4+ Good+ Left Dorsiflexion (L4) 4- Good- PT-OP-Q Treatments Start: 04/20/19 17:04 Freq: Status: Active Protocol: Document 04/27/19 09:06 [facility] (Rec: 04/27/19 10:21 [facility] [id number]) Therapeutic Exercises Sitting Exercises elbow ext Sitting Exercise Name AAROM elbow ext Comments too much pain with R side holding L arm online editor Sitting Exercise Name squeezing towel Side left Reps/Minutes 3 Standing Exercises pendulum Standing Exercise Name fwd/back Side left Reps/Minutes 10 Comments edu for relaxing arm PT-OP-S Aquatic Treatment Start: 05/09/19 15:25 Freq: Status: Active Protocol: Document 05/09/19 15:26 [facility] (Rec: 05/09/19 15:39 [id number]) Aquatics Treatment Pool Entry/Exit Pool Entry/Exit Method Stairs Assistance Independent Water Walking backward Water Level Chest Level Walking Equipment arm float Level of Assistance Standby Assistance Marching Water Level Chest Level Level of Assistance Independent Sideways Water Level Chest Level Comments right leading only Forwards Water Level Chest Level Walking Equipment arm float Level of Assistance Independent Upper Extremity Exercises 1 Details Shoulder Hor.AB/AD, ABD/ADD Water Level Chest Level Equipment arm float Comments very gentle movements with limited ROM Upper Extremity Stretches chest stretch Body Position Standing Water Level Chest Level Equipment UE paddles Comments cues for relaxing shoulders; very gentle [place] Activities [place] Activities Bicycle [place] Hip Abduction/Adduction Equipment blue float, neck float Duration 10 min Comments pt experiencing pain with float under arm. Discontinued deep water PT-OP-T Assessment and Plan Start: 04/20/19 17:04 Freq: Status: Active Protocol: Document 05/09/19 15:26 [facility] (Rec: 05/09/19 15:39 [facility] [id number]) Physical Therapy Assessment Impairments Impairments Activity Tolerance Balance Functional Activities Functional Mobility Gait Pain Posture ROM Soft Tissue Mobility Strength Goals Three Impairment DASH Short Term Goal (STG) Pt will improve score to 65 to show improvement in functional ability. STG Duration 05/28/19 Usp Goal (LTG) Pt will ijmprove his score to 50 in order to show progress with his ability to participate in functional activties at home. LTG Duration 06/28/19 Two Impairment LE strength Short Term Goal (STG) Pt will be indep with HEP in order to be able to indep work on his strength separate of PT sessions. STG Duration 05/28/19 Usp Goal (LTG) Pt will in LE strength to grossly 4+/5 B in order to be able to go from sit to stand without inc pain in knees. LTG Duration 06/28/29 One Impairment ROM Short Term Goal (STG) Pt will improve PROM to 50% of typical range and will be able to rest arm at side in order to improve his resting posture and gait mechanics. STG Duration 05/28/19 Perinatal Specialist Goal (LTG) Pt will have AROM to within 50 % normal limits in order to allow him to participate in his ADLs (dressing and bathing ) and household tasks without assistance. LTG Duration 06/28/19 Assessment Summary Assessment Pt using arm float to assist with PROM. Very gentle motion with UE. Pt held arm when in deep water and after 10m minutes stated it was too painful and he needed to return to shallow where he rested for several minutes. Pt c/o pool temp being cold and left several minutes early. Tolerated gentle movements with UEs. C/O bilat knee pain after several laps of gentle walking Physical Therapy Plan Frequency and Duration Frequency of Treatment 1-2x/week Duration of Treatment 2 months Plan of Care Start Date 04/27/19 Plan of Care End Date 06/28/19 Therapeutic Interventions Therapeutic Interventions Aquatic Therapy Balance Training Gait Training Home Exercise Program Joint Mobilizations Manual Therapy Neuromuscular Re-education Patient/Caregiver Education Self-Care/Home Management Soft Tissue Mobilization Taping Therapeutic Activities Therapeutic Exercises Next Visit Focus/Plan Next Note Type Treatment Note Next Visit Plan Work on gradual progression of L shoulder ROM. Use another method of floatation in deep water d/t increase in pain with blue float under arm.
--- NOTE | 2019-05-25 14:47 | PT-OP ANOTE ---
cancelled PT appointment today per doctor recommendation due to fall 05/23/19
--- NOTE | 2019-05-30 13:00 | PT.OTN ---
Current Diagnoses Bilateral primary osteoarthritis of knee (05/30/19) Primary osteoarthritis, left shoulder (05/30/19) Difficulty in walking, not elsewhere classified (05/30/19) Abnormal posture (05/30/19) Weakness (05/30/19) Unspecified fracture of upper end of left humerus, initial encounter for closed fracture (05/30/19) Physical Therapy Treatment Note PT-OP-A Visit Information Start: 04/20/19 17:04 Freq: Status: Active Protocol: Document 05/30/19 13:00 SAK (Rec: 05/31/19 09:35 SAK [id number]) Out-Patient Physical Therapy Visit Information Visit Information Visit Type Aquatic Treatment Note Visit Start Time 13:00 Visit Stop Time 13:40 Total Visit Minutes 40 Visit Number 3 Number of EMTS Visits 0 PT-OP-B Current Condition Start: 04/20/19 17:04 Freq: Status: Active Protocol: Document 04/27/19 09:06 [facility] (Rec: 04/27/19 10:21 [facility] [id number]) Current Condition History of Current Condition Onset Date 03/24 Current Complaints L shoulder pain & knee pain History of Current Condition Pt reports L humerus fx and was put into a sling initially. Pt has been released from the sling at this time and was told to do small circles. Pt had a fall which caused the fracture. He thinks he may have gotten lightheaded because he blacked out when he fell. Pt reports he also injured his L knee and it feels like his knee locks up when he sits for a long time. Reports his knee is worse now then where it was before. Pt reports he does have a walker and a cane at home, which he sometimes uses. Pt reports he has gained weight since his fall, but was doing well with losing weight prior to this. Pt reports he has difficulty getting into the car and getting the seat belt set up and door closed. Pt reports he has had difficulty bathing and has difficulty reaching behind him and difficulty to LE. Pt reports he has to step up to his shower and he has a sliding door to get in. He does not have chair in there at this time and he has his help him with showering. Pt reports the MD told him the shoulder was mending. He is unsure how much he is allowed to do. He said he doesn't really have any range so he can't move his arm anyways. Reports he has burning sensation into med arm/elbow. Per MD phone call: Pt allowed gentle PROM & AAROM exercsies only at this time. Another call out re: if pt needs to wear sling Prior Treatments and Tests Injections for knees & LB; chiropractor for alignment of back & neck -has gone less frequently since fx shoulder Personal Factors Other Personal Factors That May Effect Heart failure, HTN, SOB, Therapy/Recovery neuropathy in hands and feet, diabetes, LBP with sciatica, neck pain, depression PT-OP-C Subjective Start: 04/20/19 17:04 Freq: Status: Active Protocol: Document 05/30/19 13:00 SAK (Rec: 05/31/19 09:35 SAK [id number]) OP-PT Subjective Patient Comments Patient Comments Patient returns to PT reporting increased pain in all the usual areas after his fall 06/23/19. PT-OP-G Mobility & Gait Start: 04/20/19 17:04 Freq: Status: Active Protocol: Document 04/27/19 09:06 [facility] (Rec: 04/27/19 10:21 [facility] [id number]) OP Gait Assessment Comments Gait Comments Pt walks at slow pace with lat leaning with elbow bent into sling position PT-OP-J Posture/Palpation/Skin Start: 04/20/19 17:04 Freq: Status: Active Protocol: Document 04/27/19 09:06 [facility] (Rec: 04/27/19 10:21 [facility] [id number]) Posture Evaluation Comments Posture Comments fwd head & rounded shoulers PT-OP-K Range of Motion Start: 04/20/19 17:04 Freq: Status: Active Protocol: Document 04/27/19 09:06 [facility] (Rec: 04/27/19 10:21 [facility] [id number]) Shoulder Goniometric Range of Motion Shoulder Left Passive Flexion 10 Abduction 14 Elbow/Forearm Range of Motion Elbow/Forearm Left Passive Elbow Flexion (degrees) 85 Elbow Extension (degrees) 45 PT-OP-M Strength Start: 04/20/19 17:04 Freq: Status: Active Protocol: Document 04/27/19 09:06 [facility] (Rec: 04/27/19 10:21 [facility] [id number]) Hip Strength Hip Manual Muscle Testing Left Flexion (L2) 3+ Fair+ Right Flexion (L2) 4- Good- Knee Strength Knee Manual Muscle Testing Right Flexion (S2) 4+ Good+ Extension (L3) 4+ Good+ Left Flexion (S2) 3+ Fair+ Extension (L3) 4 Good Ankle/Foot Strength Ankle and Foot Manual Muscle Testing Right Dorsiflexion (L4) 4+ Good+ Left Dorsiflexion (L4) 4- Good- PT-OP-Q Treatments Start: 04/20/19 17:04 Freq: Status: Active Protocol: Document 04/27/19 09:06 [facility] (Rec: 04/27/19 10:21 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 Sitting Exercise Name squeezing towel Side left Reps/Minutes 3 Standing Exercises pendulum Standing Exercise Name fwd/back Side left Reps/Minutes 10 Comments edu for relaxing arm PT-OP-S Aquatic Treatment Start: 05/09/19 15:25 Freq: Status: Active Protocol: Document 05/30/19 13:00 [facility] (Rec: 05/31/19 09:35 [facility] [id number]) Aquatics Treatment Pool Entry/Exit Pool Entry/Exit Method Stairs Assistance Contact Guard Assistance Water Walking backward Water Level Chest Level Level of Assistance Standby Assistance Verbal Cues Marching Water Level Chest Level Level of Assistance Standby Assistance Verbal Cues Sideways Water Level Chest Level Comments small steps Forwards Water Level Chest Level Level of Assistance Standby Assistance Verbal Cues Upper Extremity Exercises shoulder flex/ext Water Level Chest Level Reps/Duration 10x ea 1 Details Shoulder Hor.AB/AD, ABD/ADD Water Level Chest Level Reps/Duration 10x ea [place] Activities [place] Activities Bicycle Other Activities deep water hang x 2 min Equipment flotation belt, neck float Duration 10 min Manual Techniques Aquatic Massage supine to upper traps, rhomboids, deltoids, biceps fuad with neck float, waist float, LE floats (poor tolerance due to being cold) PT-OP-T Assessment and Plan Start: 04/20/19 17:04 Freq: Status: Active Protocol: Document 05/30/19 13:00 [facility] (Rec: 05/31/19 09:35 [facility] [id number]) Physical Therapy Assessment Impairments Impairments Activity Tolerance Balance Functional Activities Functional Mobility Gait Pain Posture ROM Soft Tissue Mobility Strength Goals Five Impairment activity intolerance Short Term Goal (STG) Patient able to tolerate 30-45 min aquatic exercise program without excess fatigue or pain (goal met) Residential Goal (LTG) Patient to be safe and independent in a 45 min aquatic exercise program for long-term pain managment and fitness (goal met 10/06/18 LTG Duration 1 month Four Impairment ROM Home Health Nurse Goal (LTG) Improve ROM in neck, shoulders , spine, and hips to WFL with minimal to no pain including ability to reach overhead and behind his back so he can be independent with bathing and dressing. ( goal progress) LTG Duration 1 month Three Impairment DASH Short Term Goal (STG) Pt will improve score to 65 to show improvement in functional ability. STG Duration 05/28/19 Residential Goal (LTG) Pt will ijmprove his score to 50 in order to show progress with his ability to participate in functional activties at home. LTG Duration 06/28/19 Two Impairment LE strength Short Term Goal (STG) Pt will be indep with HEP in order to be able to indep work on his strength separate of PT sessions. STG Duration 05/28/19 Home Health Nurse Goal (LTG) Pt will in LE strength to grossly 4+/5 B in order to be able to go from sit to stand without inc pain in knees. LTG Duration 06/28/29 One Impairment ROM Short Term Goal (STG) Pt will improve PROM to 50% of typical range and will be able to rest arm at side in order to improve his resting posture and gait mechanics. STG Duration 05/28/19 Residential Goal (LTG) Pt will have AROM to within 50 % normal limits in order to allow him to participate in his ADLs (dressing and bathing ) and household tasks without assistance. LTG Duration 06/28/19 Assessment Summary Assessment Patient reporting increased pain throughout his body, had difficulty tolerating water temperature in pool today, felt very cold. Physical Therapy Plan Next Visit Focus/Plan Next Note Type Treatment Note Next Visit Plan Gentle progression of aquatic exercises as tolerated.
--- NOTE | 2019-06-01 15:33 | PT.OTN ---
Current Diagnoses Bilateral primary osteoarthritis of knee (06/01/19) Primary osteoarthritis, left shoulder (06/01/19) Difficulty in walking, not elsewhere classified (06/01/19) Abnormal posture (06/01/19) Weakness (06/01/19) Unspecified fracture of upper end of left humerus, initial encounter for closed fracture (06/01/19) Physical Therapy Treatment Note PT-OP-A Visit Information Start: 04/20/19 17:04 Freq: Status: Active Protocol: Document 06/01/19 15:17 LJ (Rec: 06/01/19 15:18 LJ [id number]) Out-Patient Physical Therapy Visit Information Visit Information Visit Type Aquatic Treatment Note Visit Start Time 13:00 Visit Stop Time 13:40 Total Visit Minutes 40 Visit Number 4 Number of EXTRUDER OPERATOR VERTICAL Visits 1 PT-OP-B Current Condition Start: 04/20/19 17:04 Freq: Status: Active Protocol: Document 04/27/19 09:06 [facility] (Rec: 04/27/19 10:21 [facility] [id number]) Current Condition History of Current Condition Onset Date 03/24 Current Complaints L shoulder pain & knee pain History of Current Condition Pt reports L humerus fx and was put into a sling initially. Pt has been released from the sling at this time and was told to do small circles. Pt had a fall which caused the fracture. He thinks he may have gotten lightheaded because he blacked out when he fell. Pt reports he also injured his L knee and it feels like his knee locks up when he sits for a long time. Reports his knee is worse now then where it was before. Pt reports he does have a walker and a cane at home, which he sometimes uses. Pt reports he has gained weight since his fall, but was doing well with losing weight prior to this. Pt reports he has difficulty getting into the car and getting the seat belt set up and door closed. Pt reports he has had difficulty bathing and has difficulty reaching behind him and difficulty to LE. Pt reports he has to step up to his shower and he has a sliding door to get in. He does not have chair in there at this time and he has his help him with showering. Pt reports the MD told him the shoulder was mending. He is unsure how much he is allowed to do. He said he doesn't really have any range so he can't move his arm anyways. Reports he has burning sensation into med arm/elbow. Per MD phone call: Pt allowed gentle PROM & AAROM exercsies only at this time. Another call out re: if pt needs to wear sling Prior Treatments and Tests Injections for knees & LB; chiropractor for alignment of back & neck -has gone less frequently since fx shoulder Personal Factors Other Personal Factors That May Effect Heart failure, HTN, SOB, Therapy/Recovery neuropathy in hands and feet, diabetes, LBP with sciatica, neck pain, depression PT-OP-C Subjective Start: 04/20/19 17:04 Freq: Status: Active Protocol: Document 06/01/19 15:17 LJ (Rec: 06/01/19 15:18 LJ [id number]) OP-PT Subjective Patient Comments Patient Comments Pt reports he is sstill PT-OP-G Mobility & Gait Start: 04/20/19 17:04 Freq: Status: Active Protocol: Document 04/27/19 09:06 [facility] (Rec: 04/27/19 10:21 [facility] [id number]) OP Gait Assessment Comments Gait Comments Pt walks at slow pace with lat leaning with elbow bent into sling position PT-OP-J Posture/Palpation/Skin Start: 04/20/19 17:04 Freq: Status: Active Protocol: Document 04/27/19 09:06 [facility] (Rec: 04/27/19 10:21 [facility] [id number]) Posture Evaluation Comments Posture Comments fwd head & rounded shoulers PT-OP-K Range of Motion Start: 04/20/19 17:04 Freq: Status: Active Protocol: Document 04/27/19 09:06 [facility] (Rec: 04/27/19 10:21 [facility] [id number]) Shoulder Goniometric Range of Motion Shoulder Left Passive Flexion 10 Abduction 14 Elbow/Forearm Range of Motion Elbow/Forearm Left Passive Elbow Flexion (degrees) 85 Elbow Extension (degrees) 45 PT-OP-M Strength Start: 04/20/19 17:04 Freq: Status: Active Protocol: Document 04/27/19 09:06 [facility] (Rec: 04/27/19 10:21 [facility] [id number]) Hip Strength Hip Manual Muscle Testing Left Flexion (L2) 3+ Fair+ Right Flexion (L2) 4- Good- Knee Strength Knee Manual Muscle Testing Right Flexion (S2) 4+ Good+ Extension (L3) 4+ Good+ Left Flexion (S2) 3+ Fair+ Extension (L3) 4 Good Ankle/Foot Strength Ankle and Foot Manual Muscle Testing Right Dorsiflexion (L4) 4+ Good+ Left Dorsiflexion (L4) 4- Good- PT-OP-Q Treatments Start: 04/20/19 17:04 Freq: Status: Active Protocol: Document 04/27/19 09:06 [facility] (Rec: 04/27/19 10:21 [facility] [id number]) Therapeutic Exercises Sitting Exercises elbow ext Sitting Exercise Name AAROM elbow ext Comments 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 Sitting Exercise Name squeezing towel Side left Reps/Minutes 3 Standing Exercises pendulum Standing Exercise Name fwd/back Side left Reps/Minutes 10 Comments edu for relaxing arm PT-OP-S Aquatic Treatment Start: 05/09/19 15:25 Freq: Status: Active Protocol: Document 06/01/19 13:00 CHRISTINA (Rec: 06/01/19 15:33 CHRISTINA [id number]) Aquatics Treatment Pool Entry/Exit Pool Entry/Exit Method Stairs Assistance Standby Assistance,Verbal Cues Water Walking backward Water Level Chest Level Level of Assistance Standby Assistance,Verbal Cues Marching Water Level Chest Level Level of Assistance Standby Assistance,Verbal Cues Sideways Water Level Chest Level Comments small steps Forwards Water Level Chest Level Level of Assistance Standby Assistance,Verbal Cues Upper Extremity Exercises shoulder flex/ext Water Level Chest Level Equipment sm. float on left arm Reps/Duration 10x ea 1 Details Shoulder Hor.AB/AD, ABD/ADD Water Level Chest Level Equipment sm float on arm Reps/Duration 10x ea Upper Extremity Stretches wrist flex/ext, pronate/supinate Details while walking forward chest stretch Body Position Standing Water Level Chest Level Comments cues for relaxing shoulders; very gentle [place] Activities [place] Activities Bicycle Equipment flotation belt, neck float Duration 20 min PT-OP-T Assessment and Plan Start: 04/20/19 17:04 Freq: Status: Active Protocol: Document 06/01/19 13:00 CHRISTINA (Rec: 06/01/19 15:33 LJ [id number]) Physical Therapy Assessment Impairments Impairments Activity Tolerance,Balance, Functional Activities, Functional Mobility,Gait,Pain, Posture,ROM,Soft Tissue Mobility,Strength Goals Five Impairment activity intolerance Short Term Goal (STG) Patient able to tolerate 30-45 min aquatic exercise program without excess fatigue or pain (goal met) Senior Care Goal (LTG) Patient to be safe and independent in a 45 min aquatic exercise program for long-term pain managment and fitness (goal met 10/06/18 LTG Duration 1 month Four Impairment ROM Senior Care Goal (LTG) Improve ROM in neck, shoulders , spine, and hips to WFL with minimal to no pain including ability to reach overhead and behind his back so he can be independent with bathing and dressing. ( goal progress) LTG Duration 1 month Three Impairment DASH Short Term Goal (STG) Pt will improve score to 65 to show improvement in functional ability. STG Duration 05/28/19 Senior Care Goal (LTG) Pt will ijmprove his score to 50 in order to show progress with his ability to participate in functional activties at home. LTG Duration 06/28/19 Two Impairment LE strength Short Term Goal (STG) Pt will be indep with HEP in order to be able to indep work on his strength separate of PT sessions. STG Duration 05/28/19 [place] Goal (LTG) Pt will in LE strength to grossly 4+/5 B in order to be able to go from sit to stand without inc pain in knees. LTG Duration 06/28/29 One Impairment ROM Short Term Goal (STG) Pt will improve PROM to 50% of typical range and will be able to rest arm at side in order to improve his resting posture and gait mechanics. STG Duration 05/28/19 Senior Care Goal (LTG) Pt will have AROM to within 50 % normal limits in order to allow him to participate in his ADLs (dressing and bathing ) and household tasks without assistance. LTG Duration 06/28/19 Assessment Summary Assessment Pt had right HS cramp in deep water. Went to stairs to stretch which helped. Pt c/o increased knee pain so it was suggested to keep floatation belt on and move to deeper water. Pt did not comply. Exited the water due to being cold. Physical Therapy Plan Next Visit Focus/Plan Next Note Type Treatment Note Next Visit Plan Gentle progression of aquatic exercises as tolerated.
--- NOTE | 2019-08-25 11:43 | PT.OPDS ---
Current Diagnoses Bilateral primary osteoarthritis of knee (06/01/19) Primary osteoarthritis, left shoulder (06/01/19) Difficulty in walking, not elsewhere classified (06/01/19) Abnormal posture (06/01/19) Weakness (06/01/19) Unspecified fracture of upper end of left humerus, initial encounter for closed fracture (06/01/19) Visit Care Team Role Provider Type Gaurang Sam MD Attending Provider Physician Specialty: Orthopedic Surgery Address: [address] [place] [address], [place], [address] Email: [email or web address] Visit Number Visit Number 4 Discharge Summary PT-OP-B Current Condition Start: 04/20/19 17:04 Freq: Status: Active Protocol: Document 04/27/19 09:06 [facility] (Rec: 04/27/19 10:21 [facility] [id number]) Current Condition History of Current Condition Onset Date 03/24 Current Complaints L shoulder pain & knee pain History of Current Condition Pt reports L humerus fx and was put into a sling initially. Pt has been released from the sling at this time and was told to do small circles. Pt had a fall which caused the fracture. He thinks he may have gotten lightheaded because he blacked out when he fell. Pt reports he also injured his L knee and it feels like his knee locks up when he sits for a long time. Reports his knee is worse now then where it was before. Pt reports he does have a walker and a cane at home, which he sometimes uses. Pt reports he has gained weight since his fall, but was doing well with losing weight prior to this. Pt reports he has difficulty getting into the car and getting the seat belt set up and door closed. Pt reports he has had difficulty bathing and has difficulty reaching behind him and difficulty to LE. Pt reports he has to step up to his shower and he has a sliding door to get in. He does not have chair in there at this time and he has his help him with showering. Pt reports the MD told him the shoulder was mending. He is unsure how much he is allowed to do. He said he doesn't really have any range so he can't move his arm anyways. Reports he has burning sensation into med arm/elbow. Per MD phone call: Pt allowed gentle PROM & AAROM exercsies only at this time. Another call out re: if pt needs to wear sling Prior Treatments and Tests Injections for knees & LB; chiropractor for alignment of back & neck -has gone less frequently since fx shoulder Personal Factors Other Personal Factors That May Effect Heart failure, HTN, SOB, Therapy/Recovery neuropathy in hands and feet, diabetes, LBP with sciatica, neck pain, depression PT-OP-C Subjective Start: 04/20/19 17:04 Freq: Status: Active Protocol: Document 06/08/19 11:00 LJ (Rec: 06/08/19 14:25 LJ [id number]) OP-PT Subjective Patient Comments Patient Comments Pt came to the pool and reported that he experienced some dizziness and head spinning while driving to the pool today. He called his neurologist to make an appointment. Pt states his face feels swollen on one side and droopy on the other side. This therapist suggested he go to the hospital but pt declined. PT-OP-G Mobility & Gait Start: 04/20/19 17:04 Freq: Status: Active Protocol: Document 04/27/19 09:06 [facility] (Rec: 04/27/19 10:21 [facility] [id number]) OP Gait Assessment Comments Gait Comments Pt walks at slow pace with lat leaning with elbow bent into sling position PT-OP-J Posture/Palpation/Skin Start: 04/20/19 17:04 Freq: Status: Active Protocol: Document 04/27/19 09:06 [facility] (Rec: 04/27/19 10:21 [facility] [id number]) Posture Evaluation Comments Posture Comments fwd head & rounded shoulers PT-OP-K Range of Motion Start: 04/20/19 17:04 Freq: Status: Active Protocol: Document 04/27/19 09:06 [facility] (Rec: 04/27/19 10:21 [facility] [id number]) Shoulder Goniometric Range of Motion Shoulder Left Passive Flexion 10 Abduction 14 Elbow/Forearm Range of Motion Elbow/Forearm Left Passive Elbow Flexion (degrees) 85 Elbow Extension (degrees) 45 PT-OP-M Strength Start: 04/20/19 17:04 Freq: Status: Active Protocol: Document 04/27/19 09:06 [facility] (Rec: 04/27/19 10:21 [facility] [id number]) Hip Strength Hip Manual Muscle Testing Left Flexion (L2) 3+ Fair+ Right Flexion (L2) 4- Good- Knee Strength Knee Manual Muscle Testing Right Flexion (S2) 4+ Good+ Extension (L3) 4+ Good+ Left Flexion (S2) 3+ Fair+ Extension (L3) 4 Good Ankle/Foot Strength Ankle and Foot Manual Muscle Testing Right Dorsiflexion (L4) 4+ Good+ Left Dorsiflexion (L4) 4- Good- PT-OP-T Assessment and Plan Start: 04/20/19 17:04 Freq: Status: Active Protocol: Document 08/25/19 11:39 JARROD (Rec: 08/25/19 11:43 [facility] [id number]) Physical Therapy Plan Discharge Physical Therapy Discharge Reasons Change in Medical Status
== END 2019-06-01 16:00 | disposition home or self-care (01) ==
LOC: PHYS 13:00
PROVIDERS: Visit Provider Orthopaedic Surgery
DX: M17.0 Bilateral primary osteoarthritis of knee (principal); S42.202A Unspecified fracture of upper end of left humerus, initial encounter for closed fracture; M19.012 Primary osteoarthritis, left shoulder; R29.3 Abnormal posture; R53.1 Weakness; R26.2 Difficulty in walking, not elsewhere classified
CPT/HCPCS: 97110; 97113; 97162

== ENCOUNTER 2019-12-19 10:15 | Outpatient (RCR) | payer MEDICARE, OTHER, SELFPAY ==
--- NOTE | 2019-10-06 09:47 | PT.OIE ---
Current Diagnoses Bilateral primary osteoarthritis of knee (10/03/19) Difficulty in walking, not elsewhere classified (10/03/19) Weakness (10/03/19) History of falling (10/03/19) Past Medical History (Last Reviewed 05/23/19 @ 19:33 by Ita Aguilera [facility]) Constipation (Acute) GERD (gastroesophageal reflux disease) (Acute) Heart failure (Acute) HTN (hypertension) (Acute) Hypercholesteremia (Acute) Knee pain (Acute) Renal disease (Acute) Visit Care Team Role Provider Type Luis Collier Primary Care Provider Non-Staff Specialty: Internal Medicine Address: [address] [place], [address] Email: Other Providers Specialty: Address: Phone: Fax: Email: Gaurang Sam MD Attending Provider Physician Specialty: Orthopedic Surgery Address: [address] [place] [address], [id number] Email: [email or web address] Physical Therapy Initial Evaluation PT-OP-A Visit Information Start: 10/03/19 14:24 Freq: Status: Active Protocol: Document 10/03/19 14:28 [facility] (Rec: 10/03/19 15:15 SAK [id number]) Out-Patient Physical Therapy Visit Information Visit Information Visit Type Initial Evaluation Visit Note patient time constraints limited his evaluation/ treatment time to 30 min Visit Start Time 14:30 Visit Stop Time 15:00 Total Visit Minutes 30 Visit Number 1 Number of [employer] Visits 0 Precautions Precautions cervical fusion PT-OP-B Current Condition Start: 10/03/19 14:24 Freq: Status: Active Protocol: Document 10/03/19 14:28 SAK (Rec: 10/03/19 15:15 SAK [id number]) Current Condition History of Current Condition Onset Date 10+ years Current Complaints bilateral knee pain. History of Current Condition gradual worsening bilateral knee pain: bone on bone. Uses walking stick. Reports not a surgical candidate due to other medical issues. Getting 2 knee braces from [facility] today. States since falling back in May his knee pain has worsened, he has gained weight. Also c/o neck pain; prior neck painwhich has worsened since a fall in May 2019. States he has a prescription for PT treatment of his neck as well but didn't bring today. Also c/o sciatic pain left LE, numbness left foot; has prior history of LBP, sciatic pain. Prior Treatments and Tests x-ray of knees. States he had a recent injection left knee; helped for 2-3 days. Also reports seeing a chiropractor which has been helpful but insurance won't cover it soon. Aquatic PT previously was helpful but states he was unable to continue with aquatic exercise independently due to cost. Treatment Goals Patient/Caregiver Goals Be able to walk with less pain , lose weight/get more fit. Prior Functional Status Baseline Function- ADL's Independent Current Functional Impairments (Reported) Functional Limitations- ADL's assistance with bathing Functional Limitations- Mobility/Gait uses walking stick; household and very short distance community Functional Limitations- Work/School retired can't cut grass can't go shopping can't wash car Functional Limitations- Recreation/ unable Hobbies Personal Factors Other Personal Factors That May Effect cardiac, HTN, neuropathy, Therapy/Recovery PT-OP-C Subjective Start: 10/03/19 14:24 Freq: Status: Active Protocol: Document 10/03/19 14:28 SAK (Rec: 10/03/19 15:15 [facility] [id number]) OP-PT Pain Assessment Location L>R knee Pain Location Details fuad knee joints at joint line Intensity 8 Description- Other locking of L knee PT-OP-D Balance Start: 10/03/19 14:24 Freq: Status: Active Protocol: Document 10/03/19 14:28 SAK (Rec: 10/03/19 15:15 SAK [id number]) Balance Tests Single Limb Standing Single Limb- Right unable Single Limb- Left unable Tandem Tandem Standing unable PT-OP-G Mobility & Gait Start: 10/03/19 14:24 Freq: Status: Active Protocol: Document 10/03/19 14:28 SAK (Rec: 10/03/19 15:15 SAK [id number]) OP Mobility Evaluation Transfers Sit to Stand painful, requires use of UE's fuad Floor Transfers unable PT-OP-K Range of Motion Start: 10/03/19 14:24 Freq: Status: Active Protocol: Document 10/03/19 14:28 SAK (Rec: 10/03/19 15:15 SAK [id number]) Hip Goniometric Range of Motion Hip ROM Limitations Comments moderately decreased due to pain bilaterally Knee Goniometric Range of Motion Knee ROM Limitations Comments 18-92 right 20-95 left Ankle and Foot Goniometric Range of Motion Ankle and Foot fuad Dorsiflexion with Knee Flexed 0 Dorsiflexion with Knee Extended 35 PT-OP-T Assessment and Plan Start: 10/03/19 14:24 Freq: Status: Active Protocol: Document 10/03/19 14:28 [facility] (Rec: 10/03/19 15:15 [facility] [id number]) Physical Therapy Assessment Rehab Potential Rehabilitation Potential Fair Evaluation Complexity Number of Personal Factors/Comorbidities 3 or More Number of Body Systems Impaired 4 or More Clinical Presentation at Evaluation Evolving Impairments Impairments Activity Tolerance,Balance, Gait,ROM,Strength Goals Five Impairment activity intolerance Short Term Goal (STG) Patient able to tolerate 30-45 min aquatic exercise program without excess fatigue or pain (goal met) STG Duration 6 wks Long-Term Goal (LTG) Patient to be safe and independent in a 45 min aquatic exercise program for long-term pain managment and fitness (goal met 10/06/18 LTG Duration 12 wks Four Impairment limited ROM in hips, knees, and ankles limiting ADL indep M1A1 Tank Crewman Goal (LTG) Improve ROM sufficient to allow him to bathe and dress independently LTG Duration 12 wks Three Impairment requires use of walking stick, limited to household and short distance comm Long-Term Goal (LTG) Patient able to walk without walking stick in the home, and tolerate walking in community for functional distances (ie brief shopping) with minimal to no increase in pain LTG Duration 12 wks Two Impairment LE weakness and pain M1A1 Tank Crewman Goal (LTG) Pt will in LE strength to grossly 4+/5 B in order to be able to go from sit to stand without inc pain in knees. LTG Duration 12 wks One Impairment balance dysfunction, high fall risk Long-Term Goal (LTG) Improve balance to decrease fall risk from high to low LTG Duration 12 wks Assessment Summary Assessment Patient presents with function -limiting pain in bilateral knees, weakness throughout, gait and balance dysfunction, difficulty performing ADL's. He has benefited from aquatic therapy in the past. Feel he would benefit form aquatic PT for ther ex in gravity-lessed environment to allow movement with less stress to his joints and increased ease of mobility. He is in agreement. He appears highly motivated. Physical Therapy Plan Frequency and Duration Frequency of Treatment 1-2x/week Duration of Treatment 12 wks Plan of Care Start Date 10/03/19 Plan of Care End Date 01/01/20 Therapeutic Interventions Therapeutic Interventions Aquatic Therapy,Balance Training,Gait Training,Home Exercise Program,Manual Therapy,Neuromuscular Re- education,Patient/Caregiver Education,Self-Care/Home Management,Taping,Therapeutic Activities,Therapeutic Exercises Next Visit Focus/Plan Next Note Type Treatment Note Next Visit Plan Initiate aquatic therapy
--- NOTE | 2019-10-06 09:47 | PT.OPPOC ---
Physical, Occupational & Speech Therapy At [facility] Current Diagnoses Bilateral primary osteoarthritis of knee (10/03/19) Difficulty in walking, not elsewhere classified (10/03/19) Weakness (10/03/19) History of falling (10/03/19) Visit Care Team Role Provider Type Luis Collier Primary Care Provider Non-Staff Specialty: Internal Medicine Address: [address] [facility], [place], [address] Email: Other Providers Specialty: Address: Phone: Fax: Email: Gaurang Sam MD Attending Provider Physician Specialty: Orthopedic Surgery Address: [address] [place] [address], [address] Email: [email or web address] Plan Of Care PT-OP-T Assessment and Plan Start: 10/03/19 14:24 Freq: Status: Active Protocol: Document 10/03/19 14:28 SAK (Rec: 10/03/19 15:15 [facility] [id number]) Physical Therapy Assessment Rehab Potential Rehabilitation Potential Fair Evaluation Complexity Number of Personal Factors/Comorbidities 3 or More Number of Body Systems Impaired 4 or More Clinical Presentation at Evaluation Evolving Impairments Impairments Activity Tolerance,Balance, Gait,ROM,Strength Goals Five Impairment activity intolerance Short Term Goal (STG) Patient able to tolerate 30-45 min aquatic exercise program without excess fatigue or pain (goal met) STG Duration 6 wks Marine Steward Goal (LTG) Patient to be safe and independent in a 45 min aquatic exercise program for long-term pain managment and fitness (goal met 10/06/18 LTG Duration 12 wks Four Impairment limited ROM in hips, knees, and ankles limiting ADL indep Half-Way Goal (LTG) Improve ROM sufficient to allow him to bathe and dress independently LTG Duration 12 wks Three Impairment requires use of walking stick, limited to household and short distance comm Marine Steward Goal (LTG) Patient able to walk without walking stick in the home, and tolerate walking in community for functional distances (ie brief shopping) with minimal to no increase in pain LTG Duration 12 wks Two Impairment LE weakness and pain Marine Steward Goal (LTG) Pt will in LE strength to grossly 4+/5 B in order to be able to go from sit to stand without inc pain in knees. LTG Duration 12 wks One Impairment balance dysfunction, high fall risk Half-Way Goal (LTG) Improve balance to decrease fall risk from high to low LTG Duration 12 wks Assessment Summary Assessment Patient presents with function -limiting pain in bilateral knees, weakness throughout, gait and balance dysfunction, difficulty performing ADL's. He has benefited from aquatic therapy in the past. Feel he would benefit form aquatic PT for ther ex in gravity-lessed environment to allow movement with less stress to his joints and increased ease of mobility. He is in agreement. He appears highly motivated. Physical Therapy Plan Frequency and Duration Frequency of Treatment 1-2x/week Duration of Treatment 12 wks Plan of Care Start Date 10/03/19 Plan of Care End Date 01/01/20 Therapeutic Interventions Therapeutic Interventions Aquatic Therapy,Balance Training,Gait Training,Home Exercise Program,Manual Therapy,Neuromuscular Re- education,Patient/Caregiver Education,Self-Care/Home Management,Taping,Therapeutic Activities,Therapeutic Exercises Next Visit Focus/Plan Next Note Type Treatment Note Next Visit Plan Initiate aquatic therapy Plan of Care Dates Plan of Care Start Date 10/03/19 Plan of Care End Date 01/01/20 Electronically Signed by: Dorita Holmna PT 10/06/19 [id number] Please Sign and Return: I have reviewed this Plan of Care and certify that the skilled therapy services above are required to meet the patient?s needs. Physician Signature Date Printed Name and Credentials Clinical Instructor Signature Printed Name and Credentials
--- NOTE | 2019-11-14 11:03 | PT.OTN ---
Current Diagnoses Bilateral primary osteoarthritis of knee (10/03/19) Difficulty in walking, not elsewhere classified (10/03/19) Weakness (10/03/19) History of falling (10/03/19) Physical Therapy Treatment Note PT-OP-A Visit Information Start: 10/03/19 14:24 Freq: Status: Active Protocol: Document 11/14/19 11:03 DLM (Rec: 11/14/19 14:08 DLM [id number]) Out-Patient Physical Therapy Visit Information Visit Information Visit Type Aquatic Treatment Note Visit Start Time 11:03 Visit Stop Time 11:45 Total Visit Minutes 42 Visit Number 2 Number of LOCK TENDER CHIEF OPERATOR Visits 0 Evaluation Information Evaluation Date 10/03/19 PT-OP-B Current Condition Start: 10/03/19 14:24 Freq: Status: Active Protocol: Document 10/03/19 14:28 SAK (Rec: 10/03/19 15:15 SAK [id number]) Current Condition History of Current Condition Onset Date 10+ years Current Complaints bilateral knee pain. History of Current Condition gradual worsening bilateral knee pain: bone on bone. Uses walking stick. Reports not a surgical candidate due to other medical issues. Getting 2 knee braces from [facility] today. States since falling back in May his knee pain has worsened, he has gained weight. Also c/o neck pain; prior neck pain which has worsened since a fall in May 2019. States he has a prescription for PT treatment of his neck as well but didn't bring today. Also c/o sciatic pain left LE, numbness left foot; has prior history of LBP, sciatic pain. Prior Treatments and Tests x-ray of knees. States he had a recent injection left knee; helped for 2-3 days. Also reports seeing a chiropractor which has been helpful but insurance won't cover it soon. Aquatic PT previously was helpful but states he was unable to continue with aquatic exercise independently due to cost. Treatment Goals Patient/Caregiver Goals Be able to walk with less pain , lose weight/get more fit. Prior Functional Status Baseline Function- ADL's Independent Current Functional Impairments (Reported) Functional Limitations- ADL's assistance with bathing Functional Limitations- Mobility/Gait uses walking stick; household and very short distance community Functional Limitations- Work/School retired can't cut grass can't go shopping can't wash car Functional Limitations- Recreation/ unable Hobbies Personal Factors Other Personal Factors That May Effect cardiac, HTN, neuropathy, Therapy/Recovery PT-OP-C Subjective Start: 10/03/19 14:24 Freq: Status: Active Protocol: Document 11/14/19 11:03 DLM (Rec: 11/14/19 14:08 DLM [id number]) OP-PT Subjective Patient Comments Patient Comments He has been sick since his evaluation at the end of Sep. He is finally better and will be able to regularly participate in physical therapy. He has more pool appointments scheduled. OP-PT Pain Assessment Location Neck Intensity 8 Scale Used Numeric (1 - 10) Description Aching,Tightness L>R knee Pain Location Details fuad knee joints at joint line Intensity 8 Scale Used Numeric (1 - 10) Description Aching Description- Other locking of L knee Frequency Constant PT-OP-D Balance Start: 10/03/19 14:24 Freq: Status: Active Protocol: Document 10/03/19 14:28 SAK (Rec: 10/03/19 15:15 SAK [id number]) Balance Tests Single Limb Standing Single Limb- Right unable Single Limb- Left unable Tandem Tandem Standing unable PT-OP-G Mobility & Gait Start: 10/03/19 14:24 Freq: Status: Active Protocol: Document 10/03/19 14:28 SAK (Rec: 10/03/19 15:15 SAK [id number]) OP Mobility Evaluation Transfers Sit to Stand painful, requires use of UE's fuad Floor Transfers unable PT-OP-K Range of Motion Start: 10/03/19 14:24 Freq: Status: Active Protocol: Document 10/03/19 14:28 SAK (Rec: 10/03/19 15:15 SAK [id number]) Hip Goniometric Range of Motion Hip ROM Limitations Comments moderately decreased due to pain bilaterally Knee Goniometric Range of Motion Knee ROM Limitations Comments 18-92 right 20-95 left Ankle and Foot Goniometric Range of Motion Ankle and Foot fuad Dorsiflexion with Knee Flexed 0 Dorsiflexion with Knee Extended 35 PT-OP-S Aquatic Treatment Start: 10/03/19 14:24 Freq: Status: Active Protocol: Document 11/14/19 11:03 DLM (Rec: 11/14/19 14:08 DL [id number]) Aquatics Treatment Pool Entry/Exit Pool Entry/Exit Method Stairs Assistance Independent Comments needs UE support on rails, step-to, slow pace Water Walking backward Water Level Chest Level Comments 2 laps [place] March Water Level Chest Level Comments 2 laps Marching Water Level Chest Level Comments 2 laps Sideways Water Level Chest Level Comments 2 laps Forwards Water Level Chest Level Comments 2 laps Lower Extremity Exercises squats Body Position Standing Water Level Chest Level Reps/Duration 10 reps Lower Extremity Stretches 2 Details quad stretch Body Position Standing Water Level Chest Level Equipment noodle on LE to assist Reps/Duration 2 reps each side Comments pt needs assist with noodle 1 Details Calf Stretch Body Position Standing Water Level Waist Level Equipment off edge of step Reps/Duration 3 reps Spinal Exercises 2 Details deep water distraction with float Body Position Standing Water Level Neck Level Equipment blue float and neck float 1 Details cervical spine AROM Body Position Standing Water Level Neck Level Reps/Duration 5 reps each [place] Activities [place] Activities Bicycle Equipment blue float and neck float Duration 10 min PT-OP-T Assessment and Plan Start: 10/03/19 14:24 Freq: Status: Active Protocol: Document 11/14/19 11:03 DLM (Rec: 11/14/19 14:08 DLM [id number]) Physical Therapy Assessment Goals Five Impairment activity intolerance Short Term Goal (STG) Patient able to tolerate 30-45 min aquatic exercise program without excess fatigue or pain (goal met) STG Duration 6 wks Prison Goal (LTG) Patient to be safe and independent in a 45 min aquatic exercise program for long-term pain managment and fitness (goal met 10/06/18 LTG Duration 12 wks Four Impairment limited ROM in hips, knees, and ankles limiting ADL indep Prison Goal (LTG) Improve ROM sufficient to allow him to bathe and dress independently LTG Duration 12 wks Three Impairment requires use of walking stick, limited to household and short distance comm Prison Goal (LTG) Patient able to walk without walking stick in the home, and tolerate walking in community for functional distances (ie brief shopping) with minimal to no increase in pain LTG Duration 12 wks Two Impairment LE weakness and pain Pe Manager Goal (LTG) Pt will in LE strength to grossly 4+/5 B in order to be able to go from sit to stand without inc pain in knees. LTG Duration 12 wks One Impairment balance dysfunction, high fall risk Prison Goal (LTG) Improve balance to decrease fall risk from high to low LTG Duration 12 wks Progress Towards Goals Progress Comments pt has not attended physical therapy since his evhi Assessment Summary Assessment He tolerated his first pool session well. Discussed need to advance his exercises slowly since he has been out of the pool for months and has been ill. Today is his first physical therapy visit since his evaluation. No significant changes in his status were noted this visit compared to [facility]. Will continues his goals set at [facility]. Physical Therapy Plan Frequency and Duration Frequency of Treatment 1-2x/week Duration of Treatment 12 wks Plan of Care Start Date 10/03/19 Plan of Care End Date 01/01/20 Therapeutic Interventions Therapeutic Interventions Aquatic Therapy,Balance Training,Gait Training,Home Exercise Program,Manual Therapy,Neuromuscular Re- education,Patient/Caregiver Education,Self-Care/Home Management,Taping,Therapeutic Activities,Therapeutic Exercises Next Visit Focus/Plan Next Note Type Treatment Note Next Visit Plan slow advance aquatic exercises
--- NOTE | 2019-11-14 14:09 | PT.OPPN ---
Current Diagnoses Bilateral primary osteoarthritis of knee (10/03/19) Difficulty in walking, not elsewhere classified (10/03/19) Weakness (10/03/19) History of falling (10/03/19) Physical Therapy Progress Note PT-OP-A Visit Information Start: 10/03/19 14:24 Freq: Status: Active Protocol: Document 11/14/19 11:03 DLM (Rec: 11/14/19 14:08 DLM [id number]) Out-Patient Physical Therapy Visit Information Visit Information Visit Type Aquatic Treatment Note Visit Start Time 11:03 Visit Stop Time 11:45 Total Visit Minutes 42 Visit Number 2 Number of FINISHING INSPECTOR Visits 0 Evaluation Information Evaluation Date 10/03/19 PT-OP-B Current Condition Start: 10/03/19 14:24 Freq: Status: Active Protocol: Document 10/03/19 14:28 SAK (Rec: 10/03/19 15:15 SAK [id number]) Current Condition History of Current Condition Onset Date 10+ years Current Complaints bilateral knee pain. History of Current Condition gradual worsening bilateral knee pain: bone on bone. Uses walking stick. Reports not a surgical candidate due to other medical issues. Getting 2 knee braces from [facility] today. States since falling back in May his knee pain has worsened, he has gained weight. Also c/o neck pain; prior neck pain which has worsened since a fall in May 2019. States he has a prescription for PT treatment of his neck as well but didn't bring today. Also c/o sciatic pain left LE, numbness left foot; has prior history of LBP, sciatic pain. Prior Treatments and Tests x-ray of knees. States he had a recent injection left knee; helped for 2-3 days. Also reports seeing a chiropractor which has been helpful but insurance won't cover it soon. Aquatic PT previously was helpful but states he was unable to continue with aquatic exercise independently due to cost. Treatment Goals Patient/Caregiver Goals Be able to walk with less pain , lose weight/get more fit. Prior Functional Status Baseline Function- ADL's Independent Current Functional Impairments (Reported) Functional Limitations- ADL's assistance with bathing Functional Limitations- Mobility/Gait uses walking stick; household and very short distance community Functional Limitations- Work/School retired can't cut grass can't go shopping can't wash car Functional Limitations- Recreation/ unable Hobbies Personal Factors Other Personal Factors That May Effect cardiac, HTN, neuropathy, Therapy/Recovery PT-OP-C Subjective Start: 10/03/19 14:24 Freq: Status: Active Protocol: Document 11/14/19 11:03 DLM (Rec: 11/14/19 14:08 DLM [id number]) OP-PT Subjective Patient Comments Patient Comments He has been sick since his evaluation at the end of Sep. He is finally better and will be able to regularly participate in physical therapy. He has more pool appointments scheduled. OP-PT Pain Assessment Location Neck Intensity 8 Scale Used Numeric (1 - 10) Description Aching,Tightness L>R knee Pain Location Details fuad knee joints at joint line Intensity 8 Scale Used Numeric (1 - 10) Description Aching Description- Other locking of L knee Frequency Constant PT-OP-D Balance Start: 10/03/19 14:24 Freq: Status: Active Protocol: Document 10/03/19 14:28 SAK (Rec: 10/03/19 15:15 SAK [id number]) Balance Tests Single Limb Standing Single Limb- Right unable Single Limb- Left unable Tandem Tandem Standing unable PT-OP-G Mobility & Gait Start: 10/03/19 14:24 Freq: Status: Active Protocol: Document 10/03/19 14:28 SAK (Rec: 10/03/19 15:15 SAK [id number]) OP Mobility Evaluation Transfers Sit to Stand painful, requires use of UE's fuad Floor Transfers unable PT-OP-K Range of Motion Start: 10/03/19 14:24 Freq: Status: Active Protocol: Document 10/03/19 14:28 SAK (Rec: 10/03/19 15:15 SAK [id number]) Hip Goniometric Range of Motion Hip ROM Limitations Comments moderately decreased due to pain bilaterally Knee Goniometric Range of Motion Knee ROM Limitations Comments 18-92 right 20-95 left Ankle and Foot Goniometric Range of Motion Ankle and Foot Measured in Degrees fuad Dorsiflexion with Knee Flexed 0 Dorsiflexion with Knee Extended 35 PT-OP-T Assessment and Plan Start: 10/03/19 14:24 Freq: Status: Active Protocol: Document 11/14/19 11:03 DLM (Rec: 11/14/19 14:08 DL [id number]) Physical Therapy Assessment Goals Five Impairment activity intolerance Short Term Goal (STG) Patient able to tolerate 30-45 min aquatic exercise program without excess fatigue or pain (goal met) STG Duration 6 wks Director Of Assessing Goal (LTG) Patient to be safe and independent in a 45 min aquatic exercise program for long-term pain managment and fitness (goal met 10/06/18 LTG Duration 12 wks Four Impairment limited ROM in hips, knees, and ankles limiting ADL indep Director Of Assessing Goal (LTG) Improve ROM sufficient to allow him to bathe and dress independently LTG Duration 12 wks Three Impairment requires use of walking stick, limited to household and short distance comm Director Of Assessing Goal (LTG) Patient able to walk without walking stick in the home, and tolerate walking in community for functional distances (ie brief shopping) with minimal to no increase in pain LTG Duration 12 wks Two Impairment LE weakness and pain Fci Goal (LTG) Pt will in LE strength to grossly 4+/5 B in order to be able to go from sit to stand without inc pain in knees. LTG Duration 12 wks One Impairment balance dysfunction, high fall risk Fci Goal (LTG) Improve balance to decrease fall risk from high to low LTG Duration 12 wks Progress Towards Goals Progress Comments pt has not attended physical therapy since his [facility] Assessment Summary Assessment He tolerated his first pool session well. Discussed need to advance his exercises slowly since he has been out of the pool for months and has been ill. Today is his first physical therapy visit since his evaluation. No significant changes in his status were noted this visit compared to [facility]. Will continues his goals set at [facility]. Physical Therapy Plan Frequency and Duration Frequency of Treatment 1-2x/week Duration of Treatment 12 wks Plan of Care Start Date 10/03/19 Plan of Care End Date 01/01/20 Therapeutic Interventions Therapeutic Interventions Aquatic Therapy,Balance Training,Gait Training,Home Exercise Program,Manual Therapy,Neuromuscular Re- education,Patient/Caregiver Education,Self-Care/Home Management,Taping,Therapeutic Activities,Therapeutic Exercises Next Visit Focus/Plan Next Note Type Treatment Note Next Visit Plan slow advance aquatic exercises
--- NOTE | 2019-11-16 14:24 | PT.OTN ---
Current Diagnoses Bilateral primary osteoarthritis of knee (11/14/19) Difficulty in walking, not elsewhere classified (11/14/19) Weakness (11/14/19) History of falling (11/14/19) Physical Therapy Treatment Note PT-OP-A Visit Information Start: 10/03/19 14:24 Freq: Status: Active Protocol: Document 11/16/19 11:45 LJ (Rec: 11/16/19 14:24 LJ [id number]) Out-Patient Physical Therapy Visit Information Visit Information Visit Type Aquatic Treatment Note Visit Start Time 11:45 Visit Stop Time 12:30 Total Visit Minutes 45 Visit Number 3 Number of ELECTROPLATING SALES REPRESENTATIVE Visits 1 PT-OP-B Current Condition Start: 10/03/19 14:24 Freq: Status: Active Protocol: Document 10/03/19 14:28 SAK (Rec: 10/03/19 15:15 SAK [id number]) Current Condition History of Current Condition Onset Date 10+ years Current Complaints bilateral knee pain. History of Current Condition gradual worsening bilateral knee pain: bone on bone. Uses walking stick. Reports not a surgical candidate due to other medical issues. Getting 2 knee braces from [facility] today. States since falling back in May his knee pain has worsened, he has gained weight. Also c/o neck pain; prior neck painwhich has worsened since a fall in May 2019. States he has a prescription for PT treatment of his neck as well but didn't bring today. Also c/o sciatic pain left LE, numbness left foot; has prior history of LBP, sciatic pain. Prior Treatments and Tests x-ray of knees. States he had a recent injection left knee; helped for 2-3 days. Also reports seeing a chiropractor which has been helpful but insurance won't cover it soon. Aquatic PT previously was helpful but states he was unable to continue with aquatic exercise independently due to cost. Treatment Goals Patient/Caregiver Goals Be able to walk with less pain , lose weight/get more fit. Prior Functional Status Baseline Function- ADL's Independent Current Functional Impairments (Reported) Functional Limitations- ADL's assistance with bathing Functional Limitations- Mobility/Gait uses walking stick; household and very short distance community Functional Limitations- Work/School retired can't cut grass can't go shopping can't wash car Functional Limitations- Recreation/ unable Hobbies Personal Factors Other Personal Factors That May Effect cardiac, HTN, neuropathy, Therapy/Recovery PT-OP-C Subjective Start: 10/03/19 14:24 Freq: Status: Active Protocol: Document 11/16/19 11:45 LJ (Rec: 11/16/19 14:24 LJ [id number]) OP-PT Subjective Patient Comments Patient Comments He was very sore after last pool session. Thinks he may have over-done exercising. PT-OP-D Balance Start: 10/03/19 14:24 Freq: Status: Active Protocol: Document 10/03/19 14:28 SAK (Rec: 10/03/19 15:15 SAK [id number]) Balance Tests Single Limb Standing Single Limb- Right unable Single Limb- Left unable Tandem Tandem Standing unable PT-OP-G Mobility & Gait Start: 10/03/19 14:24 Freq: Status: Active Protocol: Document 10/03/19 14:28 SAK (Rec: 10/03/19 15:15 SAK [id number]) OP Mobility Evaluation Transfers Sit to Stand painful, requires use of UE's fuad Floor Transfers unable PT-OP-K Range of Motion Start: 10/03/19 14:24 Freq: Status: Active Protocol: Document 10/03/19 14:28 SAK (Rec: 10/03/19 15:15 SAK [id number]) Hip Goniometric Range of Motion Hip ROM Limitations Comments moderately decreased due to pain bilaterally Knee Goniometric Range of Motion Knee ROM Limitations Comments 18-92 right 20-95 left Ankle and Foot Goniometric Range of Motion Ankle and Foot fuad Dorsiflexion with Knee Flexed 0 Dorsiflexion with Knee Extended 35 PT-OP-S Aquatic Treatment Start: 10/03/19 14:24 Freq: Status: Active Protocol: Document 11/16/19 11:45 LJ (Rec: 11/16/19 14:24 LJ [id number]) Aquatics Treatment Pool Entry/Exit Pool Entry/Exit Method Stairs Assistance Independent Comments needs UE support on rails, step-to, slow pace Water Walking [place] March Water Level Chest Level Comments 2 laps Marching Water Level Chest Level Comments 2 laps Sideways Water Level Chest Level Comments 2 laps Forwards Water Level Chest Level Comments 2 laps Lower Extremity Stretches 2 Details quad stretch Body Position Standing Water Level Chest Level Equipment noodle on LE to assist Reps/Duration 2 reps each side Comments pt needs assist with noodle 1 Details Calf Stretch Body Position Standing Water Level Waist Level Equipment off edge of step Reps/Duration 3 reps Spinal Exercises 2 Details deep water distraction with float Body Position Standing Water Level Neck Level Equipment blue float and neck float 1 Details cervical spine AROM Body Position Standing Water Level Neck Level Reps/Duration 5 reps each [place] Activities [place] Activities Bicycle,Cross Country,Hip Abduction/Adduction Equipment blue float and neck float Duration 25 min Swim Strokes modified emmonak. baackstroke Laps/Duration 5 min Comments lg blue float PT-OP-T Assessment and Plan Start: 10/03/19 14:24 Freq: Status: Active Protocol: Document 11/16/19 11:45 CHRISTINA (Rec: 11/16/19 14:24 CHRISTINA [id number]) Physical Therapy Assessment Rehab Potential Rehabilitation Potential Fair Evaluation Complexity Number of Personal Factors/Comorbidities 3 or More Number of Body Systems Impaired 4 or More Clinical Presentation at Evaluation Evolving Impairments Impairments Activity Tolerance,Balance, Gait,ROM,Strength Goals Five Impairment activity intolerance Short Term Goal (STG) Patient able to tolerate 30-45 min aquatic exercise program without excess fatigue or pain (goal met) STG Duration 6 wks Vocational Rehabilitation Teacher Goal (LTG) Patient to be safe and independent in a 45 min aquatic exercise program for long-term pain managment and fitness (goal met 10/06/18 LTG Duration 12 wks Four Impairment limited ROM in hips, knees, and ankles limiting ADL indep Usp Goal (LTG) Improve ROM sufficient to allow him to bathe and dress independently LTG Duration 12 wks Three Impairment requires use of walking stick, limited to household and short distance comm Vocational Rehabilitation Teacher Goal (LTG) Patient able to walk without walking stick in the home, and tolerate walking in community for functional distances (ie brief shopping) with minimal to no increase in pain LTG Duration 12 wks Two Impairment LE weakness and pain Vocational Rehabilitation Teacher Goal (LTG) Pt will in LE strength to grossly 4+/5 B in order to be able to go from sit to stand without inc pain in knees. LTG Duration 12 wks One Impairment balance dysfunction, high fall risk Vocational Rehabilitation Teacher Goal (LTG) Improve balance to decrease fall risk from high to low LTG Duration 12 wks Assessment Summary Assessment Pt spent more time in deep water this session. Limited exercises in intensity and discontinued CC ski as it caused pain in his knees and hips. Physical Therapy Plan Frequency and Duration Frequency of Treatment 1-2x/week Duration of Treatment 12 wks Plan of Care Start Date 10/03/19 Plan of Care End Date 01/01/20 Therapeutic Interventions Therapeutic Interventions Aquatic Therapy,Balance Training,Gait Training,Home Exercise Program,Manual Therapy,Neuromuscular Re- education,Patient/Caregiver Education,Self-Care/Home Management,Taping,Therapeutic Activities,Therapeutic Exercises Next Visit Focus/Plan Next Note Type Treatment Note Next Visit Plan slowly advance aquatic exercises with focus on strengthening in deep water to relieve joint stress
--- NOTE | 2019-11-21 15:27 | PT.OTN ---
Current Diagnoses Bilateral primary osteoarthritis of knee (11/21/19) Difficulty in walking, not elsewhere classified (11/21/19) Weakness (11/21/19) History of falling (11/21/19) Physical Therapy Treatment Note PT-OP-A Visit Information Start: 10/03/19 14:24 Freq: Status: Active Protocol: Document 11/21/19 11:45 LJ (Rec: 11/21/19 15:27 LJ [id number]) Out-Patient Physical Therapy Visit Information Visit Information Visit Type Aquatic Treatment Note Visit Start Time 11:45 Visit Stop Time 12:30 Total Visit Minutes 45 Visit Number 4 Number of FLOOR SPECIALIST Visits 2 PT-OP-B Current Condition Start: 10/03/19 14:24 Freq: Status: Active Protocol: Document 10/03/19 14:28 SAK (Rec: 10/03/19 15:15 SAK [id number]) Current Condition History of Current Condition Onset Date 10+ years Current Complaints bilateral knee pain. History of Current Condition gradual worsening bilateral knee pain: bone on bone. Uses walking stick. Reports not a surgical candidate due to other medical issues. Getting 2 knee braces from [facility] today. States since falling back in May his knee pain has worsened, he has gained weight. Also c/o neck pain; prior neck painwhich has worsened since a fall in May 2019. States he has a prescription for PT treatment of his neck as well but didn't bring today. Also c/o sciatic pain left LE, numbness left foot; has prior history of LBP, sciatic pain. Prior Treatments and Tests x-ray of knees. States he had a recent injection left knee; helped for 2-3 days. Also reports seeing a chiropractor which has been helpful but insurance won't cover it soon. Aquatic PT previously was helpful but states he was unable to continue with aquatic exercise independently due to cost. Treatment Goals Patient/Caregiver Goals Be able to walk with less pain , lose weight/get more fit. Prior Functional Status Baseline Function- ADL's Independent Current Functional Impairments (Reported) Functional Limitations- ADL's assistance with bathing Functional Limitations- Mobility/Gait uses walking stick; household and very short distance community Functional Limitations- Work/School retired can't cut grass can't go shopping can't wash car Functional Limitations- Recreation/ unable Hobbies Personal Factors Other Personal Factors That May Effect cardiac, HTN, neuropathy, Therapy/Recovery PT-OP-C Subjective Start: 10/03/19 14:24 Freq: Status: Active Protocol: Document 11/21/19 11:45 LJ (Rec: 11/21/19 15:27 LJ [id number]) OP-PT Subjective Patient Comments Patient Comments Pt reports his shoulders were sore after last pool session PT-OP-D Balance Start: 10/03/19 14:24 Freq: Status: Active Protocol: Document 10/03/19 14:28 SAK (Rec: 10/03/19 15:15 SAK [id number]) Balance Tests Single Limb Standing Single Limb- Right unable Single Limb- Left unable Tandem Tandem Standing unable PT-OP-G Mobility & Gait Start: 10/03/19 14:24 Freq: Status: Active Protocol: Document 10/03/19 14:28 SAK (Rec: 10/03/19 15:15 SAK [id number]) OP Mobility Evaluation Transfers Sit to Stand painful, requires use of UE's fuad Floor Transfers unable PT-OP-K Range of Motion Start: 10/03/19 14:24 Freq: Status: Active Protocol: Document 10/03/19 14:28 SAK (Rec: 10/03/19 15:15 SAK [id number]) Hip Goniometric Range of Motion Hip ROM Limitations Comments moderately decreased due to pain bilaterally Knee Goniometric Range of Motion Knee ROM Limitations Comments 18-92 right 20-95 left Ankle and Foot Goniometric Range of Motion Ankle and Foot fuad Dorsiflexion with Knee Flexed 0 Dorsiflexion with Knee Extended 35 PT-OP-S Aquatic Treatment Start: 10/03/19 14:24 Freq: Status: Active Protocol: Document 11/21/19 11:45 CHRISTINA (Rec: 11/21/19 15:27 LJ [id number]) Aquatics Treatment Pool Entry/Exit Pool Entry/Exit Method Stairs Assistance Independent Comments needs UE support on rails, step-to, slow pace Water Walking jogging Water Level Chest Level Comments pt experienced knee pain backward Water Level Chest Level Comments forward BS [place] March Water Level Chest Level Comments opp hand to knee Marching Water Level Chest Level Comments reverse BS Sideways Water Level Chest Level Comments HABD/HADD Forwards Water Level Chest Level Walking Equipment Ankle Weight- 5.0# Level of Assistance Verbal Cues Comments passive stretch with bilateral neck lateral flexion Lower Extremity Exercises squats Body Position Standing Water Level Chest Level Reps/Duration 10 reps 1 Details Hip flexion/ext, Hip AB, circles Body Position Standing Water Level Chest Level Reps/Duration 10 Comments #4 weights Lower Extremity Stretches 2 Details quad stretch Body Position Standing Water Level Chest Level Equipment noodle on LE to assist Reps/Duration 2 reps each side Comments pt needs assist with noodle 1 Details Calf Stretch Body Position Standing Water Level Waist Level Equipment off edge of step Reps/Duration 3 reps Upper Extremity Exercises 1 Details Shoulder ABD/ADD, flex/ext Water Level Chest Level Reps/Duration 10x ea Upper Extremity Stretches forward walking w/paddles Reps/Duration 4 laps Comments UEs IR/ER Spinal Exercises 1 Details cervical spine AROM Body Position Standing Water Level Neck Level Reps/Duration 5 reps each Balance UCT directional changes Reps/Duration 2 min Mobile Activities Mobile Activities Bicycle,Cross Country,Hip Abduction/Adduction Equipment saddle, noodle under armpits Duration 15 PT-OP-T Assessment and Plan Start: 10/03/19 14:24 Freq: Status: Active Protocol: Document 11/21/19 11:45 LJ (Rec: 11/21/19 15:27 LJ [id number]) Physical Therapy Assessment Rehab Potential Rehabilitation Potential Fair Evaluation Complexity Number of Personal Factors/Comorbidities 3 or More Number of Body Systems Impaired 4 or More Clinical Presentation at Evaluation Evolving Impairments Impairments Activity Tolerance,Balance, Gait,ROM,Strength Goals Five Impairment activity intolerance Short Term Goal (STG) Patient able to tolerate 30-45 min aquatic exercise program without excess fatigue or pain (goal met) STG Duration 6 wks Long-Term Goal (LTG) Patient to be safe and independent in a 45 min aquatic exercise program for long-term pain managment and fitness (goal met 10/06/18 LTG Duration 12 wks Four Impairment limited ROM in hips, knees, and ankles limiting ADL indep Long-Term Goal (LTG) Improve ROM sufficient to allow him to bathe and dress independently LTG Duration 12 wks Three Impairment requires use of walking stick, limited to household and short distance comm Long-Term Goal (LTG) Patient able to walk without walking stick in the home, and tolerate walking in community for functional distances (ie brief shopping) with minimal to no increase in pain LTG Duration 12 wks Two Impairment LE weakness and pain Long-Term Goal (LTG) Pt will in LE strength to grossly 4+/5 B in order to be able to go from sit to stand without inc pain in knees. LTG Duration 12 wks One Impairment balance dysfunction, high fall risk Long-Term Goal (LTG) Improve balance to decrease fall risk from high to low LTG Duration 12 wks Assessment Summary Assessment Pt more compliant with exercises this session. Modified deep water equipment to saddle and bilat lg noodles . Could try sm noodles to limit shoulder impingement position. Physical Therapy Plan Frequency and Duration Frequency of Treatment 1-2x/week Duration of Treatment 12 wks Plan of Care Start Date 10/03/19 Plan of Care End Date 01/01/20 Therapeutic Interventions Therapeutic Interventions Aquatic Therapy,Balance Training,Gait Training,Home Exercise Program,Manual Therapy,Neuromuscular Re- education,Patient/Caregiver Education,Self-Care/Home Management,Taping,Therapeutic Activities,Therapeutic Exercises Next Visit Focus/Plan Next Note Type Treatment Note Next Visit Plan slowly advance aquatic exercises with focus on strengthening in deep water to relieve joint stress
--- NOTE | 2019-11-24 08:12 | PT.OTN ---
Current Diagnoses Bilateral primary osteoarthritis of knee (11/23/19) Difficulty in walking, not elsewhere classified (11/23/19) Weakness (11/23/19) History of falling (11/23/19) Physical Therapy Treatment Note PT-OP-A Visit Information Start: 10/03/19 14:24 Freq: Status: Active Protocol: Document 11/23/19 11:00 SAK (Rec: 11/24/19 08:12 SAK [id number]) Out-Patient Physical Therapy Visit Information Visit Information Visit Type Aquatic Treatment Note Visit Start Time 11:00 Visit Stop Time 11:45 Total Visit Minutes 45 Visit Number 5/ Number of ROCK CONTRACTOR Visits 0 PT-OP-B Current Condition Start: 10/03/19 14:24 Freq: Status: Active Protocol: Document 10/03/19 14:28 SAK (Rec: 10/03/19 15:15 SAK [id number]) Current Condition History of Current Condition Onset Date 10+ years Current Complaints bilateral knee pain. History of Current Condition gradual worsening bilateral knee pain: bone on bone. Uses walking stick. Reports not a surgical candidate due to other medical issues. Getting 2 knee braces from [email or web address] [facility] today. States since falling back in May his knee pain has worsened, he has gained weight. Also c/o neck pain; prior neck painwhich has worsened since a fall in May 2019. States he has a prescription for PT treatment of his neck as well but didn't bring today. Also c/o sciatic pain left LE, numbness left foot; has prior history of LBP, sciatic pain. Prior Treatments and Tests x-ray of knees. States he had a recent injection left knee; helped for 2-3 days. Also reports seeing a chiropractor which has been helpful but insurance won't cover it soon. Aquatic PT previously was helpful but states he was unable to continue with aquatic exercise independently due to cost. Treatment Goals Patient/Caregiver Goals Be able to walk with less pain , lose weight/get more fit. Prior Functional Status Baseline Function- ADL's Independent Current Functional Impairments (Reported) Functional Limitations- ADL's assistance with bathing Functional Limitations- Mobility/Gait uses walking stick; household and very short distance community Functional Limitations- Work/School retired can't cut grass can't go shopping can't wash car Functional Limitations- Recreation/ unable Hobbies Personal Factors Other Personal Factors That May Effect cardiac, HTN, neuropathy, Therapy/Recovery PT-OP-C Subjective Start: 10/03/19 14:24 Freq: Status: Active Protocol: Document 11/23/19 11:00 SAK (Rec: 11/24/19 08:12 SAK [id number]) OP-PT Subjective Patient Comments Patient Comments Likes using saddle float plus noodles for flotation in deep water, less shoulder soreness. I always feel better in the water. PT-OP-D Balance Start: 10/03/19 14:24 Freq: Status: Active Protocol: Document 10/03/19 14:28 SAK (Rec: 10/03/19 15:15 SAK [id number]) Balance Tests Single Limb Standing Single Limb- Right unable Single Limb- Left unable Tandem Tandem Standing unable PT-OP-G Mobility & Gait Start: 10/03/19 14:24 Freq: Status: Active Protocol: Document 10/03/19 14:28 SAK (Rec: 10/03/19 15:15 SAK [id number]) OP Mobility Evaluation Transfers Sit to Stand painful, requires use of UE's fuad Floor Transfers unable PT-OP-K Range of Motion Start: 10/03/19 14:24 Freq: Status: Active Protocol: Document 10/03/19 14:28 SAK (Rec: 10/03/19 15:15 SAK [id number]) Hip Goniometric Range of Motion Hip ROM Limitations Comments moderately decreased due to pain bilaterally Knee Goniometric Range of Motion Knee ROM Limitations Comments 18-92 right 20-95 left Ankle and Foot Goniometric Range of Motion Ankle and Foot fuad Dorsiflexion with Knee Flexed 0 Dorsiflexion with Knee Extended 35 PT-OP-S Aquatic Treatment Start: 10/03/19 14:24 Freq: Status: Active Protocol: Document 11/23/19 11:00 SAK (Rec: 11/24/19 08:12 SAK [id number]) Aquatics Treatment Pool Entry/Exit Pool Entry/Exit Method Stairs Assistance Independent Comments needs UE support on rails, step-to, slow pace Water Walking backward Water Level Chest Level Comments forward BS [place] March Water Level Chest Level Comments opp hand to knee Marching Water Level Chest Level Comments reverse BS Sideways Water Level Chest Level Comments HABD/HADD Forwards Water Level Chest Level Level of Assistance Verbal Cues Lower Extremity Exercises knee flex/ext Reps/Duration 10x squats Body Position Standing Water Level Chest Level Reps/Duration 10 reps 1 Details Hip flexion/ext, Hip AB, circles Body Position Standing Water Level Chest Level Reps/Duration 10 Lower Extremity Stretches HS Equipment Large Noodle Reps/Duration 2x 3 Details Single knee to chest Body Position Standing Reps/Duration 1 min bilat Comments therapist assist 2 Details quad stretch Body Position Standing Water Level Chest Level Equipment small moodle Reps/Duration 2 reps each side Comments pt needs assist with noodle Upper Extremity Exercises 1 Details Shoulder ABD/ADD, flex/ext Water Level Chest Level Reps/Duration 10x ea Spinal Exercises 1 Details cervical spine AROM Body Position Standing Water Level Neck Level Reps/Duration 5 reps each [place] Activities [place] Activities Bicycle,Cross [place],Hip Abduction/Adduction Equipment saddle, 1 large noodle under each armpit Duration 15 PT-OP-T Assessment and Plan Start: 10/03/19 14:24 Freq: Status: Active Protocol: Document 11/23/19 11:00 [facility] (Rec: 11/24/19 08:12 [facility] [id number]) Physical Therapy Assessment Rehab Potential Rehabilitation Potential Fair Goals Five Impairment activity intolerance Short Term Goal (STG) Patient able to tolerate 30-45 min aquatic exercise program without excess fatigue or pain (goal met) STG Duration 6 wks Custodial Goal (LTG) Patient to be safe and independent in a 45 min aquatic exercise program for long-term pain managment and fitness (goal met 10/06/18 LTG Duration 12 wks Four Impairment limited ROM in hips, knees, and ankles limiting ADL indep Custodial Goal (LTG) Improve ROM sufficient to allow him to bathe and dress independently LTG Duration 12 wks Three Impairment requires use of walking stick, limited to household and short distance comm Communications Program Manager Goal (LTG) Patient able to walk without walking stick in the home, and tolerate walking in community for functional distances (ie brief shopping) with minimal to no increase in pain LTG Duration 12 wks Two Impairment LE weakness and pain Communications Program Manager Goal (LTG) Pt will in LE strength to grossly 4+/5 B in order to be able to go from sit to stand without inc pain in knees. LTG Duration 12 wks One Impairment balance dysfunction, high fall risk Communications Program Manager Goal (LTG) Improve balance to decrease fall risk from high to low LTG Duration 12 wks Assessment Summary Assessment Good tolerance for aquatic exercises, patient highly motivated. Due to limited shoulder ROM and strength has difficulty managing equipment for stretching independently. Physical Therapy Plan Frequency and Duration Frequency of Treatment 1-2x/week Duration of Treatment 12 wks Plan of Care Start Date 10/03/19 Plan of Care End Date 01/01/20 Therapeutic Interventions Therapeutic Interventions Aquatic Therapy,Balance Training,Gait Training,Home Exercise Program,Manual Therapy,Neuromuscular Re- education,Patient/Caregiver Education,Self-Care/Home Management,Taping,Therapeutic Activities,Therapeutic Exercises Next Visit Focus/Plan Next Note Type Treatment Note Next Visit Plan Continue aquatic PT for strengthening, ROM, pain management. Consider trying small noodles under arms in deep water; patient refused to switch today.
--- NOTE | 2019-11-30 14:17 | PT.OTN ---
Current Diagnoses Bilateral primary osteoarthritis of knee (11/23/19) Difficulty in walking, not elsewhere classified (11/23/19) Weakness (11/23/19) History of falling (11/23/19) Physical Therapy Treatment Note PT-OP-A Visit Information Start: 10/03/19 14:24 Freq: Status: Active Protocol: Document 11/30/19 11:00 LJ (Rec: 11/30/19 14:17 LJ [id number]) Out-Patient Physical Therapy Visit Information Visit Information Visit Type Aquatic Treatment Note Visit Start Time 11:00 Visit Stop Time 11:45 Total Visit Minutes 45 Visit Number 03/14 Number of LOCKSTITCH WAISTBAND SETTER Visits 1 PT-OP-B Current Condition Start: 10/03/19 14:24 Freq: Status: Active Protocol: Document 10/03/19 14:28 SAK (Rec: 10/03/19 15:15 SAK [id number]) Current Condition History of Current Condition Onset Date 10+ years Current Complaints bilateral knee pain. History of Current Condition gradual worsening bilateral knee pain: bone on bone. Uses walking stick. Reports not a surgical candidate due to other medical issues. Getting 2 knee braces from [employer] [facility] today. States since falling back in May his knee pain has worsened, he has gained weight. Also c/o neck pain; prior neck painwhich has worsened since a fall in May 2019. States he has a prescription for PT treatment of his neck as well but didn't bring today. Also c/o sciatic pain left LE, numbness left foot; has prior history of LBP, sciatic pain. Prior Treatments and Tests x-ray of knees. States he had a recent injection left knee; helped for 2-3 days. Also reports seeing a chiropractor which has been helpful but insurance won't cover it soon. Aquatic PT previously was helpful but states he was unable to continue with aquatic exercise independently due to cost. Treatment Goals Patient/Caregiver Goals Be able to walk with less pain , lose weight/get more fit. Prior Functional Status Baseline Function- ADL's Independent Current Functional Impairments (Reported) Functional Limitations- ADL's assistance with bathing Functional Limitations- Mobility/Gait uses walking stick; household and very short distance community Functional Limitations- Work/School retired can't cut grass can't go shopping can't wash car Functional Limitations- Recreation/ unable Hobbies Personal Factors Other Personal Factors That May Effect cardiac, HTN, neuropathy, Therapy/Recovery PT-OP-C Subjective Start: 10/03/19 14:24 Freq: Status: Active Protocol: Document 11/30/19 11:00 LJ (Rec: 11/30/19 14:17 LJ [id number]) OP-PT Subjective Patient Comments Patient Comments Pt reports he was using an edger this weekend and is now experiencing overall pain especially in his knees PT-OP-D Balance Start: 10/03/19 14:24 Freq: Status: Active Protocol: Document 10/03/19 14:28 SAK (Rec: 10/03/19 15:15 SAK [id number]) Balance Tests Single Limb Standing Single Limb- Right unable Single Limb- Left unable Tandem Tandem Standing unable PT-OP-G Mobility & Gait Start: 10/03/19 14:24 Freq: Status: Active Protocol: Document 10/03/19 14:28 SAK (Rec: 10/03/19 15:15 SAK [id number]) OP Mobility Evaluation Transfers Sit to Stand painful, requires use of UE's fuad Floor Transfers unable PT-OP-K Range of Motion Start: 10/03/19 14:24 Freq: Status: Active Protocol: Document 10/03/19 14:28 SAK (Rec: 10/03/19 15:15 SAK [id number]) Hip Goniometric Range of Motion Hip ROM Limitations Comments moderately decreased due to pain bilaterally Knee Goniometric Range of Motion Knee ROM Limitations Comments 18-92 right 20-95 left Ankle and Foot Goniometric Range of Motion Ankle and Foot fuad Dorsiflexion with Knee Flexed 0 Dorsiflexion with Knee Extended 35 PT-OP-S Aquatic Treatment Start: 10/03/19 14:24 Freq: Status: Active Protocol: Document 11/30/19 11:00 LJ (Rec: 11/30/19 14:17 LJ [id number]) Aquatics Treatment Pool Entry/Exit Pool Entry/Exit Method Stairs Assistance Independent Comments needs UE support on rails, step-to, slow pace Water Walking backward Water Level Chest Level Comments forward BS Marching Water Level Chest Level Comments reverse BS Sideways Water Level Chest Level Comments HABD/HADD Lower Extremity Exercises squats Body Position Standing Water Level Chest Level Reps/Duration 10 reps Upper Extremity Exercises 1 Details Shoulder ABD/ADD, flex/ext Water Level Chest Level Reps/Duration during walking exercises Upper Extremity Stretches forward walking w/paddles Reps/Duration 1 lap Comments UEs IR/ER Spinal Exercises 1 Details cervical spine AROM Body Position Standing Water Level Neck Level Reps/Duration 5 reps each [place] Activities [place] Activities Bicycle,Cross [place],Hip Abduction/Adduction Equipment saddle + 2 colored noodles Duration 20 Manual Techniques Aquatic Massage using roller stick on upper traps and quads bilat PT-OP-T Assessment and Plan Start: 10/03/19 14:24 Freq: Status: Active Protocol: Document 11/30/19 11:00 CHRISTINA (Rec: 11/30/19 14:17 CHRISTINA [id number]) Physical Therapy Assessment Rehab Potential Rehabilitation Potential Fair Evaluation Complexity Number of Personal Factors/Comorbidities 3 or More Number of Body Systems Impaired 4 or More Clinical Presentation at Evaluation Evolving Impairments Impairments Activity Tolerance,Balance, Gait,ROM,Strength Goals Five Impairment activity intolerance Short Term Goal (STG) Patient able to tolerate 30-45 min aquatic exercise program without excess fatigue or pain (goal met) STG Duration 6 wks Longterm Goal (LTG) Patient to be safe and independent in a 45 min aquatic exercise program for long-term pain managment and fitness (goal met 10/06/18 LTG Duration 12 wks Four Impairment limited ROM in hips, knees, and ankles limiting ADL indep Brattice Builder Goal (LTG) Improve ROM sufficient to allow him to bathe and dress independently LTG Duration 12 wks Three Impairment requires use of walking stick, limited to household and short distance comm Brattice Builder Goal (LTG) Patient able to walk without walking stick in the home, and tolerate walking in community for functional distances (ie brief shopping) with minimal to no increase in pain LTG Duration 12 wks Two Impairment LE weakness and pain Longterm Goal (LTG) Pt will in LE strength to grossly 4+/5 B in order to be able to go from sit to stand without inc pain in knees. LTG Duration 12 wks One Impairment balance dysfunction, high fall risk Brattice Builder Goal (LTG) Improve balance to decrease fall risk from high to low LTG Duration 12 wks Assessment Summary Assessment Pt spent more time in deep water at lower intensity this session due to increased pain from the weekend activities. Refused stretching exercises, Comntinues to self-direct his exercises. No increase in pain reported. Physical Therapy Plan Frequency and Duration Frequency of Treatment 1-2x/week Duration of Treatment 12 wks Plan of Care Start Date 10/03/19 Plan of Care End Date 01/01/20 Therapeutic Interventions Therapeutic Interventions Aquatic Therapy,Balance Training,Gait Training,Home Exercise Program,Manual Therapy,Neuromuscular Re- education,Patient/Caregiver Education,Self-Care/Home Management,Taping,Therapeutic Activities,Therapeutic Exercises Next Visit Focus/Plan Next Note Type Treatment Note Next Visit Plan Continue aquatic PT for strengthening, ROM, pain management.
--- NOTE | 2019-12-05 15:46 | PT.OTN ---
Current Diagnoses Bilateral primary osteoarthritis of knee (12/05/19) Difficulty in walking, not elsewhere classified (12/05/19) Weakness (12/05/19) History of falling (12/05/19) Physical Therapy Treatment Note PT-OP-A Visit Information Start: 10/03/19 14:24 Freq: Status: Active Protocol: Document 12/05/19 11:45 LJ (Rec: 12/05/19 15:45 LJ [id number]) Out-Patient Physical Therapy Visit Information Visit Information Visit Type Aquatic Treatment Note Visit Start Time 11:45 Visit Stop Time 12:30 Total Visit Minutes 45 Visit Number 7/ Number of EMERGENCY ROOM NURSE Visits 2 PT-OP-B Current Condition Start: 10/03/19 14:24 Freq: Status: Active Protocol: Document 10/03/19 14:28 SAK (Rec: 10/03/19 15:15 SAK [id number]) Current Condition History of Current Condition Onset Date 10+ years Current Complaints bilateral knee pain. History of Current Condition gradual worsening bilateral knee pain: bone on bone. Uses walking stick. Reports not a surgical candidate due to other medical issues. Getting 2 knee braces from [employer] [facility] today. States since falling back in May his knee pain has worsened, he has gained weight. Also c/o neck pain; prior neck painwhich has worsened since a fall in May 2019. States he has a prescription for PT treatment of his neck as well but didn't bring today. Also c/o sciatic pain left LE, numbness left foot; has prior history of LBP, sciatic pain. Prior Treatments and Tests x-ray of knees. States he had a recent injection left knee; helped for 2-3 days. Also reports seeing a chiropractor which has been helpful but insurance won't cover it soon. Aquatic PT previously was helpful but states he was unable to continue with aquatic exercise independently due to cost. Treatment Goals Patient/Caregiver Goals Be able to walk with less pain , lose weight/get more fit. Prior Functional Status Baseline Function- ADL's Independent Current Functional Impairments (Reported) Functional Limitations- ADL's assistance with bathing Functional Limitations- Mobility/Gait uses walking stick; household and very short distance community Functional Limitations- Work/School retired can't cut grass can't go shopping can't wash car Functional Limitations- Recreation/ unable Hobbies Personal Factors Other Personal Factors That May Effect cardiac, HTN, neuropathy, Therapy/Recovery PT-OP-C Subjective Start: 10/03/19 14:24 Freq: Status: Active Protocol: Document 12/05/19 11:45 LJ (Rec: 12/05/19 15:45 LJ [id number]) OP-PT Subjective Patient Comments Patient Comments Pt states his shoulders are feeling stiff this morning. He did not do anything strenuous over the weekend and does not know why they are so stiff PT-OP-D Balance Start: 10/03/19 14:24 Freq: Status: Active Protocol: Document 10/03/19 14:28 SAK (Rec: 10/03/19 15:15 SAK [id number]) Balance Tests Single Limb Standing Single Limb- Right unable Single Limb- Left unable Tandem Tandem Standing unable PT-OP-G Mobility & Gait Start: 10/03/19 14:24 Freq: Status: Active Protocol: Document 10/03/19 14:28 SAK (Rec: 10/03/19 15:15 SAK [id number]) OP Mobility Evaluation Transfers Sit to Stand painful, requires use of UE's fuad Floor Transfers unable PT-OP-K Range of Motion Start: 10/03/19 14:24 Freq: Status: Active Protocol: Document 10/03/19 14:28 SAK (Rec: 10/03/19 15:15 SAK [id number]) Hip Goniometric Range of Motion Hip ROM Limitations Comments moderately decreased due to pain bilaterally Knee Goniometric Range of Motion Knee ROM Limitations Comments 18-92 right 20-95 left Ankle and Foot Goniometric Range of Motion Ankle and Foot fuad Dorsiflexion with Knee Flexed 0 Dorsiflexion with Knee Extended 35 PT-OP-S Aquatic Treatment Start: 10/03/19 14:24 Freq: Status: Active Protocol: Document 12/05/19 11:45 LJ (Rec: 12/05/19 15:45 LJ [id number]) Aquatics Treatment Pool Entry/Exit Pool Entry/Exit Method Stairs Assistance Independent Comments needs UE support on rails, step-to, slow pace Water Walking jogging Water Level Chest Level backward Walking Equipment UE paddles Comments forward BS [place] March Water Level Chest Level Walking Equipment UE paddles Comments opp hand to knee Marching Water Level Chest Level Walking Equipment UE paddles Comments reverse BS Sideways Water Level Chest Level Walking Equipment UE paddles Comments HABD/HADD Lower Extremity Exercises knee flex/ext Reps/Duration 20x Comments bilateral squats Body Position Standing Water Level Chest Level Reps/Duration 10 reps 1 Details Hip flexion/ext, Hip AB, circles Body Position Standing Water Level Chest Level Reps/Duration 10 Lower Extremity Stretches HS Equipment Large Noodle Reps/Duration 2x 2 Details quad stretch Body Position Standing Water Level Chest Level Equipment small moodle Reps/Duration 2 reps each side Comments pt needs assist with noodle 1 Details Calf Stretch Body Position Standing Water Level Waist Level Equipment off edge of step Reps/Duration 3 reps Upper Extremity Stretches forward walking w/paddles Reps/Duration 1 lap Balance UCT directional changes Reps/Duration 2 min [place] Activities [place] Activities Bicycle,Cross Country,Hip Abduction/Adduction Equipment saddle + 2 colored noodles Duration 20 PT-OP-T Assessment and Plan Start: 10/03/19 14:24 Freq: Status: Active Protocol: Document 12/05/19 11:45 CHRISTINA (Rec: 12/05/19 15:45 [id number]) Physical Therapy Assessment Rehab Potential Rehabilitation Potential Fair Evaluation Complexity Number of Personal Factors/Comorbidities 3 or More Number of Body Systems Impaired 4 or More Clinical Presentation at Evaluation Evolving Impairments Impairments Activity Tolerance,Balance, Gait,ROM,Strength Goals Five Impairment activity intolerance Short Term Goal (STG) Patient able to tolerate 30-45 min aquatic exercise program without excess fatigue or pain (goal met) STG Duration 6 wks [facility] Goal (LTG) Patient to be safe and independent in a 45 min aquatic exercise program for long-term pain managment and fitness (goal met 10/06/18 LTG Duration 12 wks Four Impairment limited ROM in hips, knees, and ankles limiting ADL indep Automotive Refinish Technician Goal (LTG) Improve ROM sufficient to allow him to bathe and dress independently LTG Duration 12 wks Three Impairment requires use of walking stick, limited to household and short distance comm Automotive Refinish Technician Goal (LTG) Patient able to walk without walking stick in the home, and tolerate walking in community for functional distances (ie brief shopping) with minimal to no increase in pain LTG Duration 12 wks Two Impairment LE weakness and pain [facility] Goal (LTG) Pt will in LE strength to grossly 4+/5 B in order to be able to go from sit to stand without inc pain in knees. LTG Duration 12 wks One Impairment balance dysfunction, high fall risk [facility] Goal (LTG) Improve balance to decrease fall risk from high to low LTG Duration 12 wks Assessment Summary Assessment Pt UE strength and ROM appear to be increasing with less pain during activity. He used the paddles with most walking and standing exercises Physical Therapy Plan Frequency and Duration Frequency of Treatment 1-2x/week Duration of Treatment 12 wks Plan of Care Start Date 10/03/19 Plan of Care End Date 01/01/20 Therapeutic Interventions Therapeutic Interventions Aquatic Therapy,Balance Training,Gait Training,Home Exercise Program,Manual Therapy,Neuromuscular Re- education,Patient/Caregiver Education,Self-Care/Home Management,Taping,Therapeutic Activities,Therapeutic Exercises Discharge Physical Therapy Discharge Reasons Change in Medical Status Next Visit Focus/Plan Next Note Type Treatment Note Next Visit Plan Continue aquatic PT for strengthening, ROM, pain management.
--- NOTE | 2019-12-14 13:35 | PT.OTN ---
Current Diagnoses Bilateral primary osteoarthritis of knee (12/14/19) Difficulty in walking, not elsewhere classified (12/14/19) Weakness (12/14/19) History of falling (12/14/19) Physical Therapy Treatment Note PT-OP-A Visit Information Start: 10/03/19 14:24 Freq: Status: Active Protocol: Document 12/14/19 11:24 LJ (Rec: 12/14/19 13:35 LJ [id number]) Out-Patient Physical Therapy Visit Information Visit Information Visit Type Aquatic Treatment Note Visit Start Time 11:24 Visit Stop Time 11:04 Total Visit Minutes 40 Visit Number 05/14 Number of CREDIT CLERK Visits 3 PT-OP-B Current Condition Start: 10/03/19 14:24 Freq: Status: Active Protocol: Document 10/03/19 14:28 SAK (Rec: 10/03/19 15:15 SAK [id number]) Current Condition History of Current Condition Onset Date 10+ years Current Complaints bilateral knee pain. History of Current Condition gradual worsening bilateral knee pain: bone on bone. Uses walking stick. Reports not a surgical candidate due to other medical issues. Getting 2 knee braces from [facility] [facility] [facility] today. States since falling back in May his knee pain has worsened, he has gained weight. Also c/o neck pain; prior neck painwhich has worsened since a fall in May 2019. States he has a prescription for PT treatment of his neck as well but didn't bring today. Also c/o sciatic pain left LE, numbness left foot; has prior history of LBP, sciatic pain. Prior Treatments and Tests x-ray of knees. States he had a recent injection left knee; helped for 2-3 days. Also reports seeing a chiropractor which has been helpful but insurance won't cover it soon. Aquatic PT previously was helpful but states he was unable to continue with aquatic exercise independently due to cost. Treatment Goals Patient/Caregiver Goals Be able to walk with less pain , lose weight/get more fit. Prior Functional Status Baseline Function- ADL's Independent Current Functional Impairments (Reported) Functional Limitations- ADL's assistance with bathing Functional Limitations- Mobility/Gait uses walking stick; household and very short distance community Functional Limitations- Work/School retired can't cut grass can't go shopping can't wash car Functional Limitations- Recreation/ unable Hobbies Personal Factors Other Personal Factors That May Effect cardiac, HTN, neuropathy, Therapy/Recovery PT-OP-C Subjective Start: 10/03/19 14:24 Freq: Status: Active Protocol: Document 12/14/19 11:24 CHRISTINA (Rec: 12/14/19 13:35 LJ [id number]) OP-PT Subjective Patient Comments Patient Comments Pt reprts some days he can't move his shoulders but is able to move them in the water. He is still having neck pain and tingling sensation going down bilateral arms. PT-OP-D Balance Start: 10/03/19 14:24 Freq: Status: Active Protocol: Document 10/03/19 14:28 SAK (Rec: 10/03/19 15:15 SAK [id number]) Balance Tests Single Limb Standing Single Limb- Right unable Single Limb- Left unable Tandem Tandem Standing unable PT-OP-G Mobility & Gait Start: 10/03/19 14:24 Freq: Status: Active Protocol: Document 10/03/19 14:28 SAK (Rec: 10/03/19 15:15 SAK [id number]) OP Mobility Evaluation Transfers Sit to Stand painful, requires use of UE's fuad Floor Transfers unable PT-OP-K Range of Motion Start: 10/03/19 14:24 Freq: Status: Active Protocol: Document 10/03/19 14:28 SAK (Rec: 10/03/19 15:15 SAK [id number]) Hip Goniometric Range of Motion Hip ROM Limitations Comments moderately decreased due to pain bilaterally Knee Goniometric Range of Motion Knee ROM Limitations Comments 18-92 right 20-95 left Ankle and Foot Goniometric Range of Motion Ankle and Foot fuad Dorsiflexion with Knee Flexed 0 Dorsiflexion with Knee Extended 35 PT-OP-S Aquatic Treatment Start: 10/03/19 14:24 Freq: Status: Active Protocol: Document 12/14/19 11:24 CHRISTINA (Rec: 12/14/19 13:35 LJ [id number]) Aquatics Treatment Pool Entry/Exit Pool Entry/Exit Method Stairs Assistance Independent Comments needs UE support on rails, step-to, slow pace Water Walking slow circumduction forward and backward Water Level Chest Level jogging Water Level Chest Level backward Comments forward breaststroke arms [place] March Water Level Chest Level Comments opp hand to knee Marching Water Level Chest Level Comments reverse breaststroke arms Sideways Water Level Chest Level Walking Equipment UE paddles Comments HABD/HADD; lateral ab,ad arms Lower Extremity Exercises knee flex/ext Reps/Duration 20x Comments bilateral squats Body Position Standing Water Level Chest Level Reps/Duration 10 reps Lower Extremity Stretches 1 Details Calf Stretch Body Position Standing Water Level Waist Level Equipment off edge of step Reps/Duration 2 reps Spinal Exercises 1 Details cervical spine AROM Body Position Standing Water Level Neck Level Reps/Duration 5 reps each [place] Activities [place] Activities Bicycle,Cross Country,Hip Abduction/Adduction Equipment saddle + 2 colored noodles Duration 17 PT-OP-T Assessment and Plan Start: 10/03/19 14:24 Freq: Status: Active Protocol: Document 12/14/19 11:24 CHRISTINA (Rec: 12/14/19 13:35 CHRISTINA [id number]) Physical Therapy Assessment Rehab Potential Rehabilitation Potential Fair Evaluation Complexity Number of Personal Factors/Comorbidities 3 or More Number of Body Systems Impaired 4 or More Clinical Presentation at Evaluation Evolving Impairments Impairments Activity Tolerance,Balance, Gait,ROM,Strength Goals Five Impairment activity intolerance Short Term Goal (STG) Patient able to tolerate 30-45 min aquatic exercise program without excess fatigue or pain (goal met) STG Duration 6 wks Nursing Home Goal (LTG) Patient to be safe and independent in a 45 min aquatic exercise program for long-term pain managment and fitness (goal met 10/06/18 LTG Duration 12 wks Four Impairment limited ROM in hips, knees, and ankles limiting ADL indep Nursing Home Goal (LTG) Improve ROM sufficient to allow him to bathe and dress independently LTG Duration 12 wks Three Impairment requires use of walking stick, limited to household and short distance comm Nursing Home Goal (LTG) Patient able to walk without walking stick in the home, and tolerate walking in community for functional distances (ie brief shopping) with minimal to no increase in pain LTG Duration 12 wks Two Impairment LE weakness and pain Supervisor Laboratory Goal (LTG) Pt will in LE strength to grossly 4+/5 B in order to be able to go from sit to stand without inc pain in knees. LTG Duration 12 wks One Impairment balance dysfunction, high fall risk Supervisor Laboratory Goal (LTG) Improve balance to decrease fall risk from high to low LTG Duration 12 wks Assessment Summary Assessment Pt refused paddles this session saing his shoulders were stiff and didn't want to make them worse. Balance ppears to be improving with more challenging gait exercises. Still relying heavily on use of UEs when exiting pool Physical Therapy Plan Frequency and Duration Frequency of Treatment 1-2x/week Duration of Treatment 12 wks Plan of Care Start Date 10/03/19 Plan of Care End Date 01/01/20 Therapeutic Interventions Therapeutic Interventions Aquatic Therapy,Balance Training,Gait Training,Home Exercise Program,Manual Therapy,Neuromuscular Re- education,Patient/Caregiver Education,Self-Care/Home Management,Taping,Therapeutic Activities,Therapeutic Exercises Next Visit Focus/Plan Next Note Type Treatment Note Next Visit Plan Continue aquatic PT for strengthening, ROM, pain management.
--- NOTE | 2019-12-19 12:05 | PT.OTN ---
Current Diagnoses Bilateral primary osteoarthritis of knee (12/14/19) Difficulty in walking, not elsewhere classified (12/14/19) Weakness (12/14/19) History of falling (12/14/19) Physical Therapy Treatment Note PT-OP-A Visit Information Start: 10/03/19 14:24 Freq: Status: Active Protocol: Document 12/19/19 10:15 LJ (Rec: 12/19/19 12:05 LJ [id number]) Out-Patient Physical Therapy Visit Information Visit Information Visit Type Aquatic Treatment Note Visit Start Time 10:15 Visit Stop Time 11:00 Total Visit Minutes 45 Visit Number 06/14 Number of MICROSTRATEGY ARCHITECT DEVELOPER Visits 4 PT-OP-B Current Condition Start: 10/03/19 14:24 Freq: Status: Active Protocol: Document 10/03/19 14:28 SAK (Rec: 10/03/19 15:15 SAK [id number]) Current Condition History of Current Condition Onset Date 10+ years Current Complaints bilateral knee pain. History of Current Condition gradual worsening bilateral knee pain: bone on bone. Uses walking stick. Reports not a surgical candidate due to other medical issues. Getting 2 knee braces from [employer] [facility] today. States since falling back in May his knee pain has worsened, he has gained weight. Also c/o neck pain; prior neck painwhich has worsened since a fall in May 2019. States he has a prescription for PT treatment of his neck as well but didn't bring today. Also c/o sciatic pain left LE, numbness left foot; has prior history of LBP, sciatic pain. Prior Treatments and Tests x-ray of knees. States he had a recent injection left knee; helped for 2-3 days. Also reports seeing a chiropractor which has been helpful but insurance won't cover it soon. Aquatic PT previously was helpful but states he was unable to continue with aquatic exercise independently due to cost. Treatment Goals Patient/Caregiver Goals Be able to walk with less pain , lose weight/get more fit. Prior Functional Status Baseline Function- ADL's Independent Current Functional Impairments (Reported) Functional Limitations- ADL's assistance with bathing Functional Limitations- Mobility/Gait uses walking stick; household and very short distance community Functional Limitations- Work/School retired can't cut grass can't go shopping can't wash car Functional Limitations- Recreation/ unable Hobbies Personal Factors Other Personal Factors That May Effect cardiac, HTN, neuropathy, Therapy/Recovery PT-OP-C Subjective Start: 10/03/19 14:24 Freq: Status: Active Protocol: Document 12/19/19 10:15 CHRISTINA (Rec: 12/19/19 12:05 CHRISTINA [id number]) OP-PT Subjective Patient Comments Patient Comments Pt states he is having a bad day so far which is causing him pain in lhis neck and shoulders. PT-OP-D Balance Start: 10/03/19 14:24 Freq: Status: Active Protocol: Document 10/03/19 14:28 SAK (Rec: 10/03/19 15:15 SAK [id number]) Balance Tests Single Limb Standing Single Limb- Right unable Single Limb- Left unable Tandem Tandem Standing unable PT-OP-G Mobility & Gait Start: 10/03/19 14:24 Freq: Status: Active Protocol: Document 10/03/19 14:28 SAK (Rec: 10/03/19 15:15 SAK [id number]) OP Mobility Evaluation Transfers Sit to Stand painful, requires use of UE's fuad Floor Transfers unable PT-OP-K Range of Motion Start: 10/03/19 14:24 Freq: Status: Active Protocol: Document 10/03/19 14:28 SAK (Rec: 10/03/19 15:15 SAK [id number]) Hip Goniometric Range of Motion Hip ROM Limitations Comments moderately decreased due to pain bilaterally Knee Goniometric Range of Motion Knee ROM Limitations Comments 18-92 right 20-95 left Ankle and Foot Goniometric Range of Motion Ankle and Foot fuad Dorsiflexion with Knee Flexed 0 Dorsiflexion with Knee Extended 35 PT-OP-S Aquatic Treatment Start: 10/03/19 14:24 Freq: Status: Active Protocol: Document 12/19/19 10:15 CHRISTINA (Rec: 12/19/19 12:05 CHRISTINA [id number]) Aquatics Treatment Pool Entry/Exit Pool Entry/Exit Method Stairs Assistance Independent Comments needs UE support on rails, step-to, slow pace Water Walking jogging Water Level Chest Level backward Comments forward breaststroke arms [place] March Water Level Chest Level Comments opp hand to knee Marching Water Level Chest Level Comments reverse breaststroke arms Sideways Water Level Chest Level Comments HABD/HADD; lateral ab,ad arms Forwards Water Level Chest Level Lower Extremity Exercises knee flex/ext Details at wall Reps/Duration 1 min Comments bilateral squats Body Position Standing Water Level Chest Level Reps/Duration 15 reps Upper Extremity Exercises lat pull downs Water Level Chest Level Equipment UE paddles Reps/Duration 10x shoulder flex/ext Water Level Chest Level Equipment UE paddles Reps/Duration 10x ea 1 Details Shoulder ABD/ADD, flex/ext Water Level Chest Level Equipment UE paddles Reps/Duration 10x ea Upper Extremity Stretches chest stretch Body Position Standing Water Level Chest Level forward walking w/paddles Reps/Duration 1 lap Spinal Exercises 1 Details cervical spine AROM Body Position Standing Water Level Neck Level Reps/Duration 5 reps each [place] Activities [place] Activities Bicycle,Cross Country,Hip Abduction/Adduction Equipment saddle + 2 colored half noodles Duration 24 PT-OP-T Assessment and Plan Start: 10/03/19 14:24 Freq: Status: Active Protocol: Document 12/19/19 10:15 CHRISTINA (Rec: 12/19/19 12:05 CHRISTINA [id number]) Physical Therapy Assessment Rehab Potential Rehabilitation Potential Fair Evaluation Complexity Number of Personal Factors/Comorbidities 3 or More Number of Body Systems Impaired 4 or More Clinical Presentation at Evaluation Evolving Impairments Impairments Activity Tolerance,Balance, Gait,ROM,Strength Goals Five Impairment activity intolerance Short Term Goal (STG) Patient able to tolerate 30-45 min aquatic exercise program without excess fatigue or pain (goal met) STG Duration 6 wks Assisted Goal (LTG) Patient to be safe and independent in a 45 min aquatic exercise program for long-term pain managment and fitness (goal met 10/06/18 LTG Duration 12 wks Four Impairment limited ROM in hips, knees, and ankles limiting ADL indep Olive Knocker Goal (LTG) Improve ROM sufficient to allow him to bathe and dress independently LTG Duration 12 wks Three Impairment requires use of walking stick, limited to household and short distance comm Olive Knocker Goal (LTG) Patient able to walk without walking stick in the home, and tolerate walking in community for functional distances (ie brief shopping) with minimal to no increase in pain LTG Duration 12 wks Two Impairment LE weakness and pain Assisted Goal (LTG) Pt will in LE strength to grossly 4+/5 B in order to be able to go from sit to stand without inc pain in knees. LTG Duration 12 wks One Impairment balance dysfunction, high fall risk Olive Knocker Goal (LTG) Improve balance to decrease fall risk from high to low LTG Duration 12 wks Assessment Summary Assessment Pt toleraed exercise session well, as he self-directs much of his treatment. Suggested he continue with land based home exercises to maintain strength and mobility as he will not get pool therapy for at least 2 weeks due to mandated pool closure Physical Therapy Plan Frequency and Duration Frequency of Treatment 1-2x/week Duration of Treatment 12 wks Plan of Care Start Date 10/03/19 Plan of Care End Date 01/01/20 Therapeutic Interventions Therapeutic Interventions Aquatic Therapy,Balance Training,Gait Training,Home Exercise Program,Manual Therapy,Neuromuscular Re- education,Patient/Caregiver Education,Self-Care/Home Management,Taping,Therapeutic Activities,Therapeutic Exercises Next Visit Focus/Plan Next Note Type Treatment Note Next Visit Plan Continue aquatic PT for strengthening, ROM, pain management when pool reopens.
--- NOTE | 2020-09-06 11:45 | PT.OPDS ---
Current Diagnoses Bilateral primary osteoarthritis of knee (12/19/19) Difficulty in walking, not elsewhere classified (12/19/19) Weakness (12/19/19) History of falling (12/19/19) Visit Care Team Role Provider Type Luis Collier MD Primary Care Provider Non-Staff Specialty: Medical Address: [address], [place], [address] Email: Other Providers Specialty: Address: Phone: Fax: Email: Gaurang Sam MD Attending Provider Physician Specialty: Orthopedic Surgery Address: [address] [place] [address], [place], [address] Email: [email or web address] Visit Number Visit Number 06/14 Discharge Summary PT-OP-B Current Condition Start: 10/03/19 14:24 Freq: Status: Active Protocol: Document 10/03/19 14:28 [facility] (Rec: 10/03/19 15:15 SAK [id number]) Current Condition History of Current Condition Onset Date 10+ years Current Complaints bilateral knee pain. History of Current Condition gradual worsening bilateral knee pain: bone on bone. Uses walking stick. Reports not a surgical candidate due to other medical issues. Getting 2 knee braces from [employer] [facility] today. States since falling back in May his knee pain has worsened, he has gained weight. Also c/o neck pain; prior neck painwhich has worsened since a fall in May 2019. States he has a prescription for PT treatment of his neck as well but didn't bring today. Also c/o sciatic pain left LE, numbness left foot; has prior history of LBP, sciatic pain. Prior Treatments and Tests x-ray of knees. States he had a recent injection left knee; helped for 2-3 days. Also reports seeing a chiropractor which has been helpful but insurance won't cover it soon. Aquatic PT previously was helpful but states he was unable to continue with aquatic exercise independently due to cost. Treatment Goals Patient/Caregiver Goals Be able to walk with less pain , lose weight/get more fit. Prior Functional Status Baseline Function- ADL's Independent Current Functional Impairments (Reported) Functional Limitations- ADL's assistance with bathing Functional Limitations- Mobility/Gait uses walking stick; household and very short distance community Functional Limitations- Work/School retired can't cut grass can't go shopping can't wash car Functional Limitations- Recreation/ unable Hobbies Personal Factors Other Personal Factors That May Effect cardiac, HTN, neuropathy, Therapy/Recovery PT-OP-C Subjective Start: 10/03/19 14:24 Freq: Status: Active Protocol: Document 12/19/19 10:15 LJ (Rec: 12/19/19 12:05 LJ [id number]) OP-PT Subjective Patient Comments Patient Comments Pt states he is having a bad day so far which is causing him pain in lhis neck and shoulders. PT-OP-D Balance Start: 10/03/19 14:24 Freq: Status: Active Protocol: Document 10/03/19 14:28 SAK (Rec: 10/03/19 15:15 SAK [id number]) Balance Tests Single Limb Standing Single Limb- Right unable Single Limb- Left unable Tandem Tandem Standing unable PT-OP-G Mobility & Gait Start: 10/03/19 14:24 Freq: Status: Active Protocol: Document 10/03/19 14:28 SAK (Rec: 10/03/19 15:15 SAK [id number]) OP Mobility Evaluation Transfers Sit to Stand painful, requires use of UE's fuad Floor Transfers unable PT-OP-K Range of Motion Start: 10/03/19 14:24 Freq: Status: Active Protocol: Document 10/03/19 14:28 SAK (Rec: 10/03/19 15:15 SAK [id number]) Hip Goniometric Range of Motion Hip ROM Limitations Comments moderately decreased due to pain bilaterally Knee Goniometric Range of Motion Knee ROM Limitations Comments 18-92 right 20-95 left Ankle and Foot Goniometric Range of Motion Ankle and Foot fuad Dorsiflexion with Knee Flexed 0 Dorsiflexion with Knee Extended 35 PT-OP-T Assessment and Plan Start: 10/03/19 14:24 Freq: Status: Active Protocol: Document 09/06/20 11:44 SAK (Rec: 09/06/20 11:45 SAK [id number]) Physical Therapy Plan Discharge Physical Therapy Discharge Reasons No Longer Attending PT
== END 2020-09-14 12:13 ==
LOC: PHYS 10:15
PROVIDERS: PCP Student in an Organized Health Care Education/Training Program; Visit Provider Orthopaedic Surgery
DX: M17.0 Bilateral primary osteoarthritis of knee (principal); R53.1 Weakness; Z91.81 History of falling; R26.2 Difficulty in walking, not elsewhere classified
CPT/HCPCS: 97113; 97162

== ENCOUNTER 2020-10-21 12:18 | Emergency (ER) | payer OTHER, MEDICARE, SELFPAY ==
[2020-10-21 12:29] VITALS: BP 187/80; PULSE 71; O2SAT 97
[2020-10-21 12:31] VITALS: BP 187/80; PULSE 82; RESP 16; TEMP 36.4; O2SAT 98; BMI 40.6
--- NOTE | 2020-10-21 12:50 | DI.RAD.S_ITS ---
PROCEDURE: XR KNEE LT 3V INDICATIONS: knee pain TECHNIQUE: 3 views of the knee were acquired. COMPARISON: [facility], CR, XR KNEE ARTHRITIC SERIES BI, 03/15/2019, 14:05. [facility], CR, XR KNEE ARTHRITIC SERIES LT, 03/31/2019, 8:40. [facility], CR, XR KNEE LT 1TO2V, 05/23/2019, 14:35. [facility], CR, XR KNEE RT 1TO2V, 05/23/2019, 14:35. FINDINGS: Bones: No fractures or dislocations. No suspicious bony lesions. There is moderate to severe medial femorotibial joint space narrowing seen, with associated remodeling changes including subchondral sclerosis and osteophyte formation along the jointline. On the sunrise view, there is moderate lateral patellofemoral joint space narrowing seen. Osteophyte formation can be seen along the margins of the patella. Soft tissues: There is a moderate joint effusion. No suspicious soft tissue calcifications. IMPRESSION: Osteoarthritic degenerative changes are seen, which are most prominent involving the medial femorotibial compartment. There is a moderate joint effusion seen. If there is strong clinical suspicion for internal derangement of the knee, please consider a dedicated, scheduled MRI for further evaluation (assuming that there is no contraindication to MRI). Dictated by: Valerio Tomlinson M.D. on 10/21/2020 at 12:14 Approved by: Valerio Tomlinson M.D. on 10/21/2020 at 12:15
[2020-10-21] MEDS: LIDOCAINE PATCH 1 EACH ADH..PATCH TOP (13:22)
[2020-10-21] MEDS: TRAMADOL 50 MG TABLET PO (14:26)
--- NOTE | 2020-10-21 15:13 | ED.LOWEXIN ---
HPI - Extremity Injury (Lower) <Ita Aguilera, COUNTY NURSE-BC - Last Filed: 10/21/20 15:30> General Chief Complaint: Extremity Injury, Lower Stated Complaint: Lt Knee Pain Time Seen by Provider: 10/21/20 12:25 Source: patient Mode of arrival: Ambulatory Limitations: no limitations History of Present Illness HPI Narrative: The patient is a 62-year-old male former smoker with history of hypertension and renal disease who presents with a chief complaint of continued left knee pain. He states he has a history of knee pain, but that it got worse this morning and yesterday. He states he is scheduled to have a knee replacement in November, though that might not happen because of the pandemic. He denies any falls or trauma. He states that it hurts more on the outside of his knee than prior. No redness. He has not taken anything for pain. He has not tried [id number] medications for pain either. He states that he was supposed to get a steroid injection for his knee, though that did not happen because he has preop, and was told that he should not be getting steroid injections preop. Related Data Home Medications Medication Instructions Recorded Confirmed polyethylene glycol 3350 [Miralax] 17 gm PO QDAYP #0 04/30/13 05/23/19 allopurinol 300 mg PO DAILY #0 04/16/17 05/23/19 diclofenac sodium [Voltaren] 1 tj TOPICAL Q4H PRN #0 MDD 16 G 04/16/17 05/23/19 (4 doses) doxazosin [Cardura] 8 mg PO BEDTIME #0 04/16/17 05/23/19 sildenafil [Viagra] 100 mg PO PRN PRN #0 MDD 100 mg 04/16/17 03/24/19 amlodipine 10 mg PO DAILY 03/24/19 05/23/19 artificial saliva (cmce-lytes) 1 spray PO PRN PRN 03/24/19 05/23/19 atorvastatin [Lipitor] 40 mg PO BEDTIME 03/24/19 05/23/19 bumetanide 6 mg PO BID 03/24/19 05/23/19 capsaicin 1 applic TOPICAL PRN PRN 03/24/19 05/23/19 carboxymethylcell-glycerin(PF) 1 applic OPHTHALMIC (EYE) QID 03/24/19 05/23/19 cholecalciferol (vitamin D3) 2,000 unit PO DAILY 03/24/19 05/23/19 dexlansoprazole [Dexilant] 60 mg PO DAILY 03/24/19 05/23/19 fexofenadine [Aller-ease] 180 mg PO DAILY 03/24/19 05/23/19 fluoride (sodium) [PreviDent 5000 1 applic DENTAL DIRECTED 03/24/19 03/24/19 Plus] glimepiride 4 mg PO BID 03/24/19 05/23/19 insulin aspart U-100 See Rx Instructions .ROUTE .COMPLEX 03/24/19 05/23/19 lisinopril 5 mg PO DAILY 03/24/19 05/23/19 losartan 100 mg PO DAILY 03/24/19 05/23/19 multivitamin with minerals 1 cap PO DAILY 03/24/19 05/23/19 pregabalin [Lyrica] 75 mg PO BID 03/24/19 03/24/19 spironolactone 12.5 mg PO BID 03/24/19 05/23/19 tolterodine [Detrol LA] 4 mg PO DAILY 03/24/19 05/23/19 vitamin B complex 1 tab PO DAILY 03/24/19 05/23/19 chlorhexidine gluconate 1 applic TOPICAL DAILY 05/23/19 05/23/19 chlorhexidine gluconate 15 ml MUCOUS MEMBRANE BID 05/23/19 05/23/19 flaxseed oil 2 cap PO DAILY 05/23/19 05/23/19 insulin glargine 70 unit SUBCUT BEDTIME 05/23/19 05/23/19 ipratropium-albuterol 1 ea INHALATION DIRECTED 05/23/19 05/23/19 sennosides-docusate sodium 1 tab PO DAILY 05/23/19 05/23/19 Previous Rx's Medication Instructions Recorded cyclobenzaprine 10 mg PO TID PRN #30 tab 05/23/19 tramadol 50 mg PO Q8H PRN #7 tab 05/23/19 lidocaine 1 patch TOPICAL DAILY PRN #15 ea 10/21/20 tramadol 50 mg PO TID PRN #10 tab 10/21/20 Allergies Allergy/AdvReac Type Severity Reaction Status Date / Time No Known Drug Allergies Allergy Verified 05/23/19 13:26 Review of Systems <Ita Ramsey, COUNTY NURSE-BC - Last Filed: 10/21/20 15:30> Review of Systems Narrative: GENERAL: Denies chills, fatigue, malaise, fever, sweats. HEENT: Denies sinus pain, ear pain, sore throat, difficulty swallowing, dizziness. RESPIRATORY: Denies dyspnea, cough, wheezing, hemoptysis, sputum. CARDIOVASCULAR: Denies chest pain, palpitations, orthopnea, edema, GASTROINTESTINAL: Denies nausea, vomiting, abdominal pain, diarrhea, constipation, melena. : Denies dysuria, frequency, incontinence, hematuria, urinary retention. MUSCULOSKELETAL: See HPI SKIN: Denies rash, skin lesions, or other NEUROLOGIC: Denies weakness, headache, numbness, change in speech, confusion, seizures, incoordination. PSYCHIATRIC: No concerning psychosocial issues. 12 point review of systems is negative except for those stated above Patient History <SVEN Waller - Last Filed: 10/21/20 15:30> Medical History (Updated 10/21/20 @ 15:20 by SVEN Waller) Constipation GERD (gastroesophageal reflux disease) Heart failure HTN (hypertension) Hypercholesteremia Knee pain Renal disease Social History marital status: lives independently: Yes Smoking Status: Former smoker Smoking Status: Former smoker alcohol intake frequency: 0-2 drinks per day Substance Use Type: does not use Exam <SVEN Waller - Last Filed: 10/21/20 15:30> Narrative Exam Narrative: GENERAL: This is a well-nourished, well-developed patient, in no acute distress e HEAD: Atraumatic. Normocephalic. No temporal or scalp tenderness. EYES: Pupils equal round and reactive. Extraocular motions intact. No scleral icterus. No injection or drainage. ENT: Nose without bleeding, purulent drainage or septal hematoma. Wearing a mask. Airway patent. NECK: Trachea midline. No JVD or lymphadenopathy. Supple, nontender, no meningeal signs. CARDIOVASCULAR: Regular rate and rhythm RESPIRATORY: No cough. No increased respiratory effort. No accessory muscle use. EXTREMITIES: Able to lift left knee off stretcher, able to flex to 90?, pain to palpation lateral aspect of left knee no obvious swelling. Positive pedal pulses. BACK: Nontender without deformity or crepitance. No flank tenderness. NEURO: AOx3. SKIN: No rash or erythema on visible skin. No overlying erythema of left knee Initial Vital Signs Initial Vital Signs: Vital Signs Pulse Rate 71 10/21/20 12:29 Blood Pressure 187/80 H 10/21/20 12:29 Pulse Oximetry 97 10/21/20 12:29 <Radhika Wilkinson DO - Last Filed: 10/21/20 18:35> Initial Vital Signs Initial Vital Signs: Vital Signs Pulse Rate 71 10/21/20 12:29 Blood Pressure 187/80 H 10/21/20 12:29 Pulse Oximetry 97 10/21/20 12:29 Procedures <SVEN Waller - Last Filed: 10/21/20 15:30> Orthopedic Splinting/Casting Injury #1: Side: left Upper Extremity Immobilizer: Reji wrap Post splinting neuro exam: intact Post splinting vascular exam: intact Placed by: Nursing Scores <SVEN Waller - Last Filed: 10/21/20 15:30> [facility] [place] coma scale eye opening: Spontaneous [place] coma scale verbal response: Orientated [place] coma scale motor response: Obey commands [place] coma scale total score: 15 Course <SVEN Waller - Last Filed: 10/21/20 15:30> Orders Ordered: ED Orders 10/21/20 12:50 XR knee LT 3V Stat Discontinued Medications Lidocaine (Lidocaine Patch 1 Each Adh..Patch) 1 each TOP NOW ONE Stop: 10/21/20 12:51 Last Admin: 10/21/20 13:22 Dose: 1 each Documented by: KECIA Lidocaine (Remove Lidocaine Patch) 1 each TOP BEDTIME ORLY Tramadol HCl (Tramadol 50 Mg Tablet) 50 mg PO NOW ONE Stop: 10/21/20 14:13 Last Admin: 10/21/20 14:26 Dose: 50 mg Documented by: DARRIUS Vital Signs Vital signs: Vital Signs - 8 hr 10/21/20 12:29 10/21/20 12:31 Temperature 97.5 F L Pulse Rate 71 82 Respiratory Rate 16 Blood Pressure 187/80 H 187/80 H Pulse Oximetry 97 98 <Radhika Wilkinson DO - Last Filed: 10/21/20 18:35> Orders Ordered: ED Orders 10/21/20 12:50 XR knee LT 3V Stat Discontinued Medications Lidocaine (Lidocaine Patch 1 Each Adh..Patch) 1 each TOP NOW ONE Stop: 10/21/20 12:51 Last Admin: 10/21/20 13:22 Dose: 1 each Documented by: KECIA Garcia (Remove Lidocaine Patch) 1 each TOP BEDTIME ORLY Tramadol HCl (Tramadol 50 Mg Tablet) 50 mg PO NOW ONE Stop: 10/21/20 14:13 Last Admin: 10/21/20 14:26 Dose: 50 mg Documented by: DARRIUS Vital Signs Vital signs: Vital Signs - 8 hr 10/21/20 12:29 10/21/20 12:31 Temperature 97.5 F L Pulse Rate 71 82 Respiratory Rate 16 Blood Pressure 187/80 H 187/80 H Pulse Oximetry 97 98 MDM - Extremity Injury (Lower) <SVEN Waller - Last Filed: 10/21/20 15:30> Imaging Data Extremity x-ray #1: Radiologist's Impression: [address] [place] [id number] ReportSigned Patient: Khris Guaman CMR#: [id number]: 1950cct:[id number]/Sex: 70 / MDate of Service: 10/21/20Loc: EDAccession Number: [id number] Procedure: XR knee LT 3V Ordering Provider: Ita Aguilera-MUKUL PROCEDURE: XR KNEE LT 3V INDICATIONS: knee pain TECHNIQUE: 3 views of the knee were acquired. COMPARISON: [facility] SHAE Saba, XR KNEE ARTHRITIC SERIES BI, 03/15/2019, 14:05. [facility] SHAE Saba, XR KNEE ARTHRITIC SERIES LT, 03/31/2019, 8:40. [facility], [facility]2019[facility] 14[facility]35[facility], 05/23/2019, 14:35. FINDINGS: Bones: No fractures or dislocations. No suspicious bony lesions. There is moderate to severe medial femorotibial joint space narrowing seen, with associated remodeling changes including subchondral sclerosis and osteophyte formation along the jointline. On the sunrise view, there is moderate lateral patellofemoral joint space narrowing seen. Osteophyte formation can be seen along the margins of the patella. Soft tissues: There is a moderate joint effusion. No suspicious soft tissue calcifications. IMPRESSION: Osteoarthritic degenerative changes are seen, which are most prominent involving the medial femorotibial compartment. There is a moderate joint effusion seen. If there is strong clinical suspicion for internal derangement of the knee, please consider a dedicated, scheduled MRI for further evaluation (assuming that there is no contraindication to MRI). Dictated by: Valeiro Tomlinson M.D. on 10/21/2020 at 12:14 Approved by: Valerio Tomlinson M.D. on 10/21/2020 at 12:15 MDM Narrative Medical decision making narrative: The patient is a 70-year-old male who presents with a chief complaint of worsening left knee pain. I suspect this might be due to the fact that he did not receive a steroid injection that he was due for due to his imminent knee replacement. He is neurovascularly intact, has no overlying erythema or swelling. X-ray shows no acute findings. NSAIDs consider, though the patient has increased creatinine history of renal disease, so we will hold off on those at this point time. He feels much improved after single dose of tramadol as well as a lidocaine patch. I encouraged him to follow up with primary care provider as well as his orthopedic surgeon, rest ice compression elevation. I also suspect that the brace he has been wearing has been worsening his pain given that it places pressure on the place he says is tender. He was placed in an Reji wrap and feels improved. Patient has no questions or concerns upon discharge and states understanding return precautions as well as follow-up care. Discharge Plan Departure Patient Disposition: Home Clinical Impression: Knee pain, left Qualifiers: Chronicity: chronic Qualified Code(s): M25.562 - Pain in left knee Instructions: How To Perform RICE (Rest, Ice, Compress, Elevate), DI for Leg Pain, How to Apply an Elastic Wrap on Knee Activity Restrictions/Additional Instructions: Thank you for trusting us with your care today. As I discussed, your x-ray shows no acute fracture. This does not rule out a soft tissue injury such as a ligament or tendon injury. It is important that you follow up with primary care provider, especially if worsening or no improvement. I sent a prescription of lidocaine patches to the [facility] pharmacy in [place] I have given you a printed prescription of tramadol for pain I have given you a prescription of a narcotic for pain. Be aware that this can be constipating and sedating. I encouraged taking with a stool softener, pushing fluids and fiber. Do not take and drive, operate heavy machinery, etc. Do not combine it with any other sedating substances such as alcohol. The combination of narcotics and alcohol and/or other sedatives can be lethal. Please come back to the emergency department for any acute concerns Prescriptions: New lidocaine 5 % adhesive patch,medicated 1 patch topical DAILY PRN (Reason: pain) Qty: 15 RF: 0 tramadol 50 mg tablet 50 mg PO TID PRN (Reason: pain) Qty: 10 RF: 0 No Action polyethylene glycol 3350 [Miralax] 119 GM powder 17 gm PO QDAYP Qty: 0 RF: 0 diclofenac sodium [Voltaren] 1 % gel 1 tj Topical Q4H MDD 16 G (4 doses) PRN (Reason: osteoarthritis) Qty: 0 RF: 0 sildenafil [Viagra] 100 MG tablet 100 mg PO PRN MDD 100 mg PRN (Reason: Sexual Activity) Qty: 0 RF: 0 allopurinol 300 MG tablet 300 mg PO DAILY Qty: 0 RF: 0 doxazosin [Cardura] 8 MG tablet 8 mg PO BEDTIME Qty: 0 RF: 0 amlodipine 10 mg tablet 10 mg PO DAILY RF: 0 atorvastatin [Lipitor] 40 mg tablet 40 mg PO BEDTIME RF: 0 bumetanide 2 mg tablet 6 mg PO BID RF: 0 tolterodine [Detrol LA] 4 mg capsule,extended release 24hr 4 mg PO DAILY RF: 0 fexofenadine [Aller-ease] 180 mg tablet 180 mg PO DAILY RF: 0 spironolactone 25 mg tablet 12.5 mg PO BID RF: 0 losartan 100 mg tablet 100 mg PO DAILY RF: 0 cholecalciferol (vitamin D3) 1,000 unit capsule 2,000 unit PO DAILY RF: 0 PreviDent 5000 Plus 1.1 % cream 1 applic dental DIRECTED RF: 0 Dexilant 60 mg capsule,biphase delayed releas 60 mg PO DAILY RF: 0 insulin aspart U-100 100 unit/mL Solution See Rx Instructions .ROUTE .COMPLEX RF: 0 vitamin B complex Tablet 1 tab PO DAILY RF: 0 capsaicin 0.025 % cream 1 applic topical PRN PRN (Reason: pain) RF: 0 lisinopril 5 mg Tablet 5 mg PO DAILY RF: 0 Lyrica 75 mg capsule 75 mg PO BID RF: 0 carboxymethylcell-glycerin(PF) 0.5-0.9 % Dropperette 1 applic ophthalmic (eye) QID RF: 0 glimepiride 4 mg Tablet 4 mg PO BID RF: 0 multivitamin with minerals Capsule 1 cap PO DAILY RF: 0 artificial saliva (cmce-lytes) [place] With Pump 1 spray PO PRN PRN (Reason: Dry Mouth) RF: 0 ipratropium-albuterol 0.5 mg-3 mg(2.5 mg base)/3 mL Solution For Nebulization 1 ea inhalation DIRECTED RF: 0 insulin glargine 100 unit/mL Solution 70 unit SUBCUT BEDTIME RF: 0 sennosides-docusate sodium 8.6-50 mg Tablet 1 tab PO DAILY RF: 0 chlorhexidine gluconate 4 % Liquid 1 applic TOPICAL DAILY RF: 0 chlorhexidine gluconate 0.12 % Mouthwash 15 ml MUCOUS MEMBRANE BID RF: 0 flaxseed oil 2 cap PO DAILY RF: 0 cyclobenzaprine 10 mg tablet 10 mg PO TID PRN (Reason: muscle spasm) Qty: 30 RF: 0 tramadol 50 mg tablet 50 mg PO Q8H PRN (Reason: pain) Qty: 7 RF: 0 Referrals: Luis Collier MD [Primary Care Provider] - <Radhika Wilkinson DO - Last Filed: 10/21/20 18:35> Cosign ED Attending Lucíaature Attestation: I was immediately available in the department for consultation. Documentation has been reviewed. I agree with assessment and plan.
== END 2020-10-21 15:39 | disposition home or self-care (01) ==
PROVIDERS: Emergency Provider Nurse Practitioner Family; PCP Student in an Organized Health Care Education/Training Program
DX: M25.562 Pain in left knee (principal); I10 Essential (primary) hypertension; I50.9 Heart failure, unspecified; N28.9 Disorder of kidney and ureter, unspecified
CPT/HCPCS: 73562; 99281; 99283

== ENCOUNTER 2020-11-28 18:50 | Emergency (ER) | payer OTHER, MEDICARE, SELFPAY ==
[2020-11-28] VITALS (7 sets, daily range): BP systolic 165–191; BP diastolic 79–94; PULSE 67–77; RESP 16–23; TEMP 36.6; O2SAT 93–99; BMI 40.2
--- NOTE | 2020-11-28 19:05 | ED_ITS ---
HPI - Headache General Chief Complaint: Headache Stated Complaint: headache, swollen eyes Time Seen by Provider: 11/28/20 18:56 Source: patient and family Mode of arrival: Ambulatory Limitations: no limitations History of Present Illness HPI Narrative: 70-year-old male former smoker with history of hypertension pres ents with his in the chief complaint of a squeezing headache over the course of the day. He states has been gradually worsening and he feels throbbing in his temples and feels like his eyes are swollen. He denies any blurred vision or trouble with speech. He denies any neck pain or confusion. He has had no chest pain or shortness of breath. He denies any focal neurologic findings such as numbness, tingling or weakness. He denies any recent injuries or falls. He has no neck pain or stiffness. Patient had recently been encouraged to increase his amlodipine from 5 mg to 10 mg and did so for the 1st time yesterday but not yet today. His blood pressure at home was in the 190s. MD Complaint: headache Onset (ago): hour(s) Onset description: gradual Location: temporal Severity: severe Quality: aching and throbbing Relieving factors: nothing Exacerbating factors: none Associated symptoms: eye pain Treatments prior to arrival: none Related Data Home Medications Medication Instructions Recorded Confirmed polyethylene glycol 3350 [Miralax] 17 gm PO QDAYP #0 04/30/13 05/23/19 allopurinol 300 mg PO DAILY #0 04/16/17 05/23/19 diclofenac sodium [Voltaren] 1 tj TOPICAL Q4H PRN #0 MDD 16 G 04/16/17 05/23/19 (4 doses) doxazosin [Cardura] 8 mg PO BEDTIME #0 04/16/17 05/23/19 sildenafil [Viagra] 100 mg PO PRN PRN #0 MDD 100 mg 04/16/17 03/24/19 amlodipine 10 mg PO DAILY 03/24/19 05/23/19 artificial saliva (cmce-lytes) 1 spray PO PRN PRN 03/24/19 05/23/19 atorvastatin [Lipitor] 40 mg PO BEDTIME 03/24/19 05/23/19 bumetanide 6 mg PO BID 03/24/19 05/23/19 capsaicin 1 applic TOPICAL PRN PRN 03/24/19 05/23/19 carboxymethylcell-glycerin(PF) 1 applic OPHTHALMIC (EYE) QID 03/24/19 05/23/19 cholecalciferol (vitamin D3) 2,000 unit PO DAILY 03/24/19 05/23/19 dexlansoprazole [Dexilant] 60 mg PO DAILY 03/24/19 05/23/19 fexofenadine [Aller-ease] 180 mg PO DAILY 03/24/19 05/23/19 fluoride (sodium) [PreviDent 5000 1 applic DENTAL DIRECTED 03/24/19 03/24/19 Plus] glimepiride 4 mg PO BID 03/24/19 05/23/19 insulin aspart U-100 See Rx Instructions .ROUTE .COMPLEX 03/24/19 05/23/19 lisinopril 5 mg PO DAILY 03/24/19 05/23/19 losartan 100 mg PO DAILY 03/24/19 05/23/19 multivitamin with minerals 1 cap PO DAILY 03/24/19 05/23/19 pregabalin [Lyrica] 75 mg PO BID 03/24/19 03/24/19 spironolactone 12.5 mg PO BID 03/24/19 05/23/19 tolterodine [Detrol LA] 4 mg PO DAILY 03/24/19 05/23/19 vitamin B complex 1 tab PO DAILY 03/24/19 05/23/19 chlorhexidine gluconate 1 applic TOPICAL DAILY 05/23/19 05/23/19 chlorhexidine gluconate 15 ml MUCOUS MEMBRANE BID 05/23/19 05/23/19 flaxseed oil 2 cap PO DAILY 05/23/19 05/23/19 insulin glargine 70 unit SUBCUT BEDTIME 05/23/19 05/23/19 ipratropium-albuterol 1 ea INHALATION DIRECTED 05/23/19 05/23/19 sennosides-docusate sodium 1 tab PO DAILY 05/23/19 05/23/19 Previous Rx's Medication Instructions Recorded cyclobenzaprine 10 mg PO TID PRN #30 tab 05/23/19 tramadol 50 mg PO Q8H PRN #7 tab 05/23/19 lidocaine 1 patch TOPICAL DAILY PRN #15 ea 10/21/20 tramadol 50 mg PO TID PRN #10 tab 10/21/20 Allergies Allergy/AdvReac Type Severity Reaction Status Date / Time No Known Drug Allergies Allergy Verified 05/23/19 13:26 Review of Systems Constitutional Constitutional: Denies chills, Denies fatigue, Denies fever(s), Denies frequent falls, Reports headache(s), Denies lethargy and Denies weakness Eyes Eyes: Denies change in vision, Denies eye discharge, Denies irritation and Denies loss of vision Comments: swollen eyes ENT Ears, Nose, Mouth, and Throat: Denies change in voice, Denies dizziness, Reports headache(s), Denies neck pain, Denies sore throat and Denies throat swelling Cardiovascular Cardiovascular: Denies chest pain, Denies irregular heart rhythm, Denies lightheadedness, Denies palpitations, Denies dyspnea, Denies dyspnea on exertion and Denies orthopnea Respiratory Respiratory: Denies cough, Denies dyspnea, Denies dyspnea on exertion and Denies wheezing Gastrointestinal Gastrointestinal: Denies abdominal pain, Denies change in bowel habits, Denies diarrhea, Denies nausea and Denies vomiting Musculoskeletal Musculoskeletal: Denies neck pain and Denies numbness Integumentary/Breasts Skin/Breast: Denies pruritus, Denies erythema, Denies rash and Denies wounds Neurologic Neurologic: Denies behavioral changes, Denies confusion, Denies dizziness, Denies frequent falls, Reports headache(s), Denies loss of vision, Denies numbness and Denies weakness Psychiatric Psychiatric: Denies anxiety, Denies behavioral changes, Denies confusion, Denies depression, Denies homicidal ideation and Denies suicidal ideation Endocrine Endocrine: Denies fatigue, Denies flushing and Denies palpitations Hematologic/Lymphatic Hematologic/Lymphatic: Denies easy bruising Allergic/Immunologic Allergic/Immunologic: Denies urticaria, Denies throat swelling and Denies wheezing Patient History Medical History Constipation GERD (gastroesophageal reflux disease) Heart failure HTN (hypertension) Hypercholesteremia Knee pain Renal disease Social History marital status: lives independently: Yes Smoking Status: Former smoker Smoking Status: Former smoker alcohol intake frequency: 0-2 drinks per day Substance Use Type: does not use Exam Narrative Exam Narrative: GENERAL: [70] year old patient appears stated age. Well- nourished, well-developed patient, in mild distress. GCS 15 HEAD: Atraumatic. Normocephalic. EYES: Pupils equal round and reactive. Extraocular motions intact. No scleral icterus. No injection or drainage. ENT: Nose without bleeding, purulent drainage. Throat without erythema, tonsillar hypertrophy or exudate. Airway patent. NECK: Trachea midline. Non tender CARDIOVASCULAR: Regular rate and rhythm without murmurs, gallops, or rubs. RESPIRATORY: Clear to auscultation. Breath sounds equal bilaterally. No wheezes, rales, or rhonchi. GASTROINTESTINAL: Abdomen soft, non-tender, nondistended. EXTREMITIES: No edema or joint tenderness. BACK: Nontender without deformity or crepitance. No flank tenderness. NEURO: AOx3. SKIN: No rash or erythema of visible areas NIH Stroke Scale 1a. LOC: Patient is alert and keenly responsive (0) 1b. LOC Questions: Patient answers both LOC questions accurately (0) 1c. LOC Commands: Patient performs both tasks correctly (0) 2. Best Gaze: Normal (0) 3. Visual: No visual loss (0) 4. Facial palsy: Normal symmetrical movements (0) 5. Motor arm: No drift (0) 6. Motor leg: No drift (0) 7. Limb ataxia: Absent (0) 8. Sensory: Normal (0) 9. Best language: No aphasia; normal (0) 10. Dysarthria: Normal (0) 11. Extinction and inattention: No abnormality (0) NIHSS: 0 Initial Vital Signs Initial Vital Signs: Vital Signs Pulse Rate 77 11/28/20 19:09 Pulse Oximetry 99 11/28/20 19:09 Course Orders Ordered: ED Orders 11/28/20 19:06 XR chest 1V Stat EKG-12 Lead Stat 11/28/20 19:25 Complete Blood Count AUTO DIFF Stat Comprehensive Metabolic Panel Stat NT-proBNP (BNP-Adult 18+) Stat Troponin & CK Cardiac Panel Stat Discontinued Medications Labetalol HCl (Labetalol 20 Mg/4 Ml Syringe) 20 mg IV NOW ONE Stop: 11/28/20 19:49 Last Admin: 11/28/20 19:53 Dose: 20 mg Documented by: DARRICK Reevaluation(s) Reevaluation #1: patient responded quite well to Labetalol and BP dropped to the 150s/160s. His symptoms completely resolved and he states he is ready to go. Vital Signs Vital signs: Vital Signs - 8 hr 11/28/20 19:09 11/28/20 19:15 11/28/20 19:30 Temperature 97.9 F Pulse Rate 77 77 77 Respiratory Rate 18 23 Blood Pressure 189/94 H Pulse Oximetry 99 98 97 11/28/20 19:40 11/28/20 19:53 11/28/20 20:00 Temperature Pulse Rate 73 70 67 Respiratory Rate 21 16 Blood Pressure 191/87 H 191/87 H 165/79 H Pulse Oximetry 97 93 11/28/20 20:21 Temperature Pulse Rate 71 Respiratory Rate 22 Blood Pressure 168/85 H Pulse Oximetry 96 MDM - Headache Lab Data Result diagrams: 11/28/20 19:25 11/28/20 19:25 Labs: Lab Results 11/28/20 11/28/20 Range/Units 19:25 19:25 WBC 3.2 L (4.5-11.0) X10^3/uL RBC 4.56 (4.5-5.9) X10^6/uL Hgb 13.8 (13.5-17.5) g/dL Hct 40.4 L (41-53) % MCV 88.5 (80-100) fL MCH 30.3 (26-34) PG MCHC 34.2 (30-36) % RDW 14.8 (11.6-14.8) % Plt Count 145 L (150-400) X10^3/uL Neut % (Auto) 51.7 (50-75) % Lymph % (Auto) 34.5 (25-40) % [place] % (Auto) 10.1 (3-14) % Eos % (Auto) 3.2 (2-4) % Baso % (Auto) 0.5 (0-2) % Neut # (Auto) 1600 (6549-5063) /uL Lymph # (Auto) 1100 (1045-1217) /uL [place] # (Auto) 300 (0-900) /uL Eos # (Auto) 100 (0-450) /uL Baso # (Auto) 0 (0-100) /uL Sodium 138 (137-145) mmol/L Potassium 3.6 (3.4-5.1) mmol/L Chloride 103 (98-107) mmol/L Carbon Dioxide 30 (22-32) mmol/L BUN 21 H (9-20) mg/dL Creatinine 1.33 H (0.66-1.25) mg/dL Estimated GFR 53.5 L (>60) mL/min BUN/Creatinine Ratio 15.8 (6-22) Glucose 87 (80-110) mg/dL Calcium 8.7 (8.4-10.2) mg/dL Total Bilirubin 0.3 (0.2-1.3) mg/dL AST 29 (17-59) IU/L ALT 27 (<50) IU/L Alkaline Phosphatase 94 (38-126) U/L Total Creatine Kinase 146 (55-170) U/L CK-MB (CK-2) 1.23 (<2.37) ng/mL CK-MB (CK-2) Rel Index 0.8 L (1.5-5.0) % Troponin I 0.059 H (0.01-0.034) ng/mL NT-Pro-B Natriuret Pep 411 H (<125) pg/mL Total Protein 6.8 (6.3-8.2) g/dL Albumin 4.0 (3.5-5.0) g/dL Globulin 2.8 (1.7-4.1) g/dL Albumin/Globulin Ratio 1.4 (1.0-2.8) MDM Narrative Medical decision making narrative: Headache considerations include, but not limited to: Subarachnoid hemorrhage, but unlikely as patient denies sudden onset of pain, not worst of life, or neck pain Meningitis considered, but thought unlikely given lack of Brudzinski's, Kernig's sign, altered mental status or fever Giant cell arteritis considered, but thought unlikely given lack of unilateral findings, pain in zoroastrianism, vision change HTN Emergency considered most likely given nature of SANDOVAL and complete resolution with BP control Other serious diagnoses considered unlikely given lack of red flag findings such as sudden onset, increasing frequency, immunocompromise, systemic signs (fever, chills, stiff neck, or rash), focal neurologic findings, trauma, blood thinners, etc. We discussed various options moving forward, but agree that continuing his newly prescribed higher dose of Amlodipine with close follow up as opposed to ad dition of a new agent. He's given return precautions and has had questions answered to his apparent satisfaction. He and understand and are in agreement with diagnosis and plan Discharge Plan Departure Patient Disposition: Home Clinical Impression: Headache Qualifiers: Headache type: unspecified Headache chronicity pattern: acute headache Intractability: not intractable Qualified Code(s): R51.9 - Headache, unspecified Instructions: DI for Headache Activity Restrictions/Additional Instructions: *You have been diagnosed with [severe headache, likely a consequence of hype rtension.] *What to do: *Take medications as directed: Please resume the higher dose of amlodipine as we discussed *Follow up with your primary care provider in 2-3 days, call for an appoi ntment. Let them know you were seen in the Emergency Department and that we ask that you be seen in follow up *Return to ER if you should have any new, worsening or concerning symptoms, such as [headache, blurred vision, confusion, numbness, tingling, weakness or other bothersome symptoms] Prescriptions: No Action polyethylene glycol 3350 [Miralax] 119 GM powder 17 gm PO QDAYP Qty: 0 RF: 0 diclofenac sodium [Voltaren] 1 % gel 1 tj Topical Q4H MDD 16 G (4 doses) PRN (Reason: osteoarthritis) Qty: 0 RF: 0 sildenafil [Viagra] 100 MG tablet 100 mg PO PRN MDD 100 mg PRN (Reason: Sexual Activity) Qty: 0 RF: 0 allopurinol 300 MG tablet 300 mg PO DAILY Qty: 0 RF: 0 doxazosin [Cardura] 8 MG tablet 8 mg PO BEDTIME Qty: 0 RF: 0 amlodipine 10 mg tablet 10 mg PO DAILY RF: 0 atorvastatin [Lipitor] 40 mg tablet 40 mg PO BEDTIME RF: 0 bumetanide 2 mg tablet 6 mg PO BID RF: 0 tolterodine [Detrol LA] 4 mg capsule,extended release 24hr 4 mg PO DAILY RF: 0 fexofenadine [Aller-ease] 180 mg tablet 180 mg PO DAILY RF: 0 spironolactone 25 mg tablet 12.5 mg PO BID RF: 0 losartan 100 mg tablet 100 mg PO DAILY RF: 0 cholecalciferol (vitamin D3) 1,000 unit capsule 2,000 unit PO DAILY RF: 0 PreviDent 5000 Plus 1.1 % cream 1 applic dental DIRECTED RF: 0 Dexilant 60 mg capsule,biphase delayed releas 60 mg PO DAILY RF: 0 insulin aspart U-100 100 unit/mL Solution See Rx Instructions .ROUTE .COMPLEX RF: 0 vitamin B complex Tablet 1 tab PO DAILY RF: 0 capsaicin 0.025 % cream 1 applic topical PRN PRN (Reason: pain) RF: 0 lisinopril 5 mg Tablet 5 mg PO DAILY RF: 0 Lyrica 75 mg capsule 75 mg PO BID RF: 0 carboxymethylcell-glycerin(PF) 0.5-0.9 % Drop[place]rette 1 applic ophthalmic (eye) QID RF: 0 glimepiride 4 mg Tablet 4 mg PO BID RF: 0 multivitamin with minerals Capsule 1 cap PO DAILY RF: 0 artificial saliva (cmce-lytes) [place] With Pump 1 spray PO PRN PRN (Reason: Dry Mouth) RF: 0 ipratropium-albuterol 0.5 mg-3 mg(2.5 mg base)/3 mL Solution For Nebulization 1 ea inhalation DIRECTED RF: 0 insulin glargine 100 unit/mL Solution 70 unit SUBCUT BEDTIME RF: 0 sennosides-docusate sodium 8.6-50 mg Tablet 1 tab PO DAILY RF: 0 chlorhexidine gluconate 4 % Liquid 1 applic TOPICAL DAILY RF: 0 chlorhexidine gluconate 0.12 % Mouthwash 15 ml MUCOUS MEMBRANE BID RF: 0 flaxseed oil 2 cap PO DAILY RF: 0 cyclobenzaprine 10 mg tablet 10 mg PO TID PRN (Reason: muscle spasm) Qty: 30 RF: 0 tramadol 50 mg tablet 50 mg PO Q8H PRN (Reason: pain) Qty: 7 RF: 0 lidocaine 5 % adhesive patch,medicated 1 patch topical DAILY PRN (Reason: pain) Qty: 15 RF: 0 tramadol 50 mg tablet 50 mg PO TID PRN (Reason: pain) Qty: 10 RF: 0 Referrals: Luis Collier MD [Primary Care Provider] -
--- NOTE | 2020-11-28 19:06 | DI.RAD.S_ITS ---
PROCEDURE: XR CHEST 1V INDICATIONS: chest pain, HTN emergency TECHNIQUE: One view of the chest was acquired. COMPARISON: [facility], CR, XR CHEST 2 VIEWS, 08/04/2019, 16:25. [facility], CR, XR CHEST 2V, 05/23/2019, 16:27. [facility], CR, XR CHEST 1V, 03/24/2019, 9:31. FINDINGS: Surgical changes and devices: None. Lungs and pleura: Lungs are clear. No pleural effusions or pneumothorax. Mediastinum: Mediastinal contours appear normal. Heart size is prominent. Bones and chest wall: No suspicious bony lesions. Overlying soft tissues appear unremarkable. IMPRESSION: No acute cardiopulmonary abnormality. Dictated by: Bereket Murphy M.D. on 11/28/2020 at 20:34 Approved by: Bereket Murphy M.D. on 11/28/2020 at 20:35
[2020-11-28 19:46] LABS: Add Manual Diff / Slide Review NO; Basophils Absolute Auto 0 /uL (0-100); Basophils Percent Auto 0.5 % (0-2); Eosinophils Absolute Auto 100 /uL (0-450); Eosinophils Percent Auto 3.2 % (2-4); Hematocrit 40.4 % (41-53); Hemoglobin 13.8 g/dL (13.5-17.5); Lymphocytes Absolute Auto 1100 /uL (1100-4500); Lymphocytes Percent Auto 34.5 % (25-40); Mean Corpuscular HGB Conc 34.2 % (30-36); Mean Corpuscular Hemoglobin 30.3 PG (26-34); Mean Corpuscular Volume 88.5 fL (80-100); Monocytes Absolute Auto 300 /uL (0-900); Monocytes Percent Auto 10.1 % (3-14); Neutrophils Absolute Auto 1600 /uL (1500-7000); Neutrophils Percent Auto 51.7 % (50-75); Platelet Count 145 X10^3/uL (150-400); Red Blood Cell Count 4.56 X10^6/uL (4.5-5.9); Red Cell Distribution Width 14.8 % (11.6-14.8); White Blood Cell Count 3.2 X10^3/uL (4.5-11.0)
[2020-11-28] MEDS: LABETALOL 20 MG/4 ML SYRINGE IV (19:53)
[2020-11-28 19:55] LABS: Alanine Aminotransferase 27 IU/L (<50); Albumin Globulin Ratio 1.4 (1.0-2.8); Alkaline Phosphatase 94 U/L (38-126); Aspartate Aminotransferase 29 IU/L (17-59); BUN Creatinine Ratio 15.8 (6-22); Bilirubin Total 0.3 mg/dL (0.2-1.3); Blood Urea Nitrogen 21 mg/dL (9-20); Calcium 8.7 mg/dL (8.4-10.2); Carbon Dioxide 30 mmol/L (22-32); Chloride 103 mmol/L (98-107); Creatine Kinase 146 U/L (55-170); Estimated Glomerular Filt Rate 53.5 mL/min (>60); Globulin 2.8 g/dL (1.7-4.1); Glucose 87 mg/dL (80-110); HEMOLYSIS < 15 (0-50); Potassium 3.6 mmol/L (3.4-5.1); Sodium 138 mmol/L (137-145); Total Protein 6.8 g/dL (6.3-8.2)
[2020-11-28 20:08] LABS: NT-proBNP (BNP-Adult 18+) 411 pg/mL (<125); Troponin I 0.059 ng/mL (0.01-0.034)
[2020-11-28 20:11] LABS: CKMB % Relative Index 0.8 % (1.5-5.0); Creatine Kinase MB 1.23 ng/mL (<2.37)
== END 2020-11-28 20:30 | disposition home or self-care (01) ==
PROVIDERS: Emergency Provider Emergency Medicine; PCP Student in an Organized Health Care Education/Training Program
DX: R51.9 Headache, unspecified (principal); I10 Essential (primary) hypertension
CPT/HCPCS: 36415; 71045; 80053; 82550; 82553; 83880; 84484; 85025; 93005; 96374; 99281; 99284

== ENCOUNTER 2021-01-17 19:39 | Emergency (ER) | payer OTHER, MEDICARE, SELFPAY ==
[2021-01-17] VITALS (14 sets, daily range): BP systolic 155–193; BP diastolic 74–97; PULSE 101–116; RESP 19–26; TEMP 37.2; O2SAT 88–95; BMI 38.7
[2021-01-17] MEDS: SODIUM CHLORIDE 0.9% 500 ML 1000 ML IV (20:12)
[2021-01-17] MEDS: ONDANSETRON 4 MG/2 ML INJ (20:12)
[2021-01-17 20:22] LABS: INR 1.1 (0.9-1.3); Prothrombin Time 13.1 SECONDS (10.1-12.7)
[2021-01-17 20:23] LABS: Add Manual Diff / Slide Review NO; Basophils Absolute Auto 0 /uL (0-100); Basophils Percent Auto 0.5 % (0-2); Eosinophils Absolute Auto 0 /uL (0-450); Eosinophils Percent Auto 0.6 % (2-4); Hematocrit 45.3 % (41-53); Hemoglobin 15.1 g/dL (13.5-17.5); Lymphocytes Absolute Auto 300 /uL (1100-4500); Lymphocytes Percent Auto 4.6 % (25-40); Mean Corpuscular HGB Conc 33.2 % (30-36); Mean Corpuscular Hemoglobin 28.7 PG (26-34); Mean Corpuscular Volume 86.3 fL (80-100); Monocytes Absolute Auto 300 /uL (0-900); Monocytes Percent Auto 5.3 % (3-14); Neutrophils Absolute Auto 5400 /uL (1500-7000); Platelet Count 139 X10^3/uL (150-400); Red Blood Cell Count 5.25 X10^6/uL (4.5-5.9); Red Cell Distribution Width 14.1 % (11.6-14.8)
[2021-01-17 20:25] LABS: PTT Partial Thromboplastin Tim 37 SECONDS (26.4-36.2)
[2021-01-17 20:26] LABS: Alanine Aminotransferase 27 IU/L (<50); Albumin 4.6 g/dL (3.5-5.0); Albumin Globulin Ratio 1.5 (1.0-2.8); Alkaline Phosphatase 121 U/L (38-126); Aspartate Aminotransferase 57 IU/L (17-59); BUN Creatinine Ratio 14.4 (6-22); Bilirubin Total 0.7 mg/dL (0.2-1.3); Blood Urea Nitrogen 25 mg/dL (9-20); Calcium 9.9 mg/dL (8.4-10.2); Carbon Dioxide 28 mmol/L (22-32); Chloride 103 mmol/L (98-107); Estimated Glomerular Filt Rate 39.2 mL/min (>60); Glucose 100 mg/dL (80-110); HEMOLYSIS 29 (0-50); Lipase 268 U/L (23-300); Potassium 3.7 mmol/L (3.4-5.1); Sodium 142 mmol/L (137-145); Total Protein 7.6 g/dL (6.3-8.2)
--- NOTE | 2021-01-17 21:36 | ED_ITS ---
HPI - Nausea/Vomiting/Diarrhea General Chief complaint: Nausea/Vomiting/Diarrhea Stated complaint: vomiting, not feeling well Time Seen by Provider: 01/17/21 21:36 Source: patient Mode of arrival: Wheelchair Limitations: no limitations History of Present Illness HPI Narrative: 70-year-old gentleman who gets the majority of his care at the [facility] presents complaining of abdominal pain and nausea starting acutely at 2:00 p.m. this afternoon. He states that he takes a whole list of medications and believes he has high blood pressure and high cholesterol but specifically denies coronary artery disease or diabetes. States he was working in his garage felt that he had overdone it a bit came in and took a tramadol for mild pain. He notes that this was on an empty stomach. Shortly thereafter he began having nausea and then reports at least 8 episodes of nonbloody emesis. He comes in complaining of general malaise, continued nausea and excessive fatigue. It is late in the evening and he reports he slept poorly the night before. He denies fever, cough, palpitations, chest pain, dyspnea, diarrhea, acute neurologic changes. Related Data Home Medications Medication Instructions Recorded Confirmed polyethylene glycol 3350 [Miralax] 17 gm PO QDAYP #0 04/30/13 05/23/19 allopurinol 300 mg PO DAILY #0 04/16/17 05/23/19 diclofenac sodium [Voltaren] 1 tj TOPICAL Q4H PRN #0 MDD 16 G 04/16/17 05/23/19 (4 doses) doxazosin [Cardura] 8 mg PO BEDTIME #0 04/16/17 05/23/19 sildenafil [Viagra] 100 mg PO PRN PRN #0 MDD 100 mg 04/16/17 03/24/19 amlodipine 10 mg PO DAILY 03/24/19 05/23/19 artificial saliva (cmce-lytes) 1 spray PO PRN PRN 03/24/19 05/23/19 atorvastatin [Lipitor] 40 mg PO BEDTIME 03/24/19 05/23/19 bumetanide 6 mg PO BID 03/24/19 05/23/19 capsaicin 1 applic TOPICAL PRN PRN 03/24/19 05/23/19 carboxymethylcell-glycerin(PF) 1 applic OPHTHALMIC (EYE) QID 03/24/19 05/23/19 cholecalciferol (vitamin D3) 2,000 unit PO DAILY 03/24/19 05/23/19 dexlansoprazole [Dexilant] 60 mg PO DAILY 03/24/19 05/23/19 fexofenadine [Aller-ease] 180 mg PO DAILY 03/24/19 05/23/19 fluoride (sodium) [PreviDent 5000 1 applic DENTAL DIRECTED 03/24/19 03/24/19 Plus] glimepiride 4 mg PO BID 03/24/19 05/23/19 insulin aspart U-100 See Rx Instructions .ROUTE .COMPLEX 03/24/19 05/23/19 lisinopril 5 mg PO DAILY 03/24/19 05/23/19 losartan 100 mg PO DAILY 03/24/19 05/23/19 multivitamin with minerals 1 cap PO DAILY 03/24/19 05/23/19 pregabalin [Lyrica] 75 mg PO BID 03/24/19 03/24/19 spironolactone 12.5 mg PO BID 03/24/19 05/23/19 tolterodine [Detrol LA] 4 mg PO DAILY 03/24/19 05/23/19 vitamin B complex 1 tab PO DAILY 03/24/19 05/23/19 chlorhexidine gluconate 1 applic TOPICAL DAILY 05/23/19 05/23/19 chlorhexidine gluconate 15 ml MUCOUS MEMBRANE BID 05/23/19 05/23/19 flaxseed oil 2 cap PO DAILY 05/23/19 05/23/19 insulin glargine 70 unit SUBCUT BEDTIME 05/23/19 05/23/19 ipratropium-albuterol 1 ea INHALATION DIRECTED 05/23/19 05/23/19 sennosides-docusate sodium 1 tab PO DAILY 05/23/19 05/23/19 Previous Rx's Medication Instructions Recorded cyclobenzaprine 10 mg PO TID PRN #30 tab 05/23/19 tramadol 50 mg PO Q8H PRN #7 tab 05/23/19 lidocaine 1 patch TOPICAL DAILY PRN #15 ea 10/21/20 tramadol 50 mg PO TID PRN #10 tab 10/21/20 Allergies Allergy/AdvReac Type Severity Reaction Status Date / Time No Known Drug Allergies Allergy Verified 05/23/19 13:26 Review of Systems Review of Systems Narrative: Remainder of complete review of systems is otherwise unremarkable except for that included in the HPI. Patient History Medical History (Updated 01/18/21 @ 03:59 by Madeline Mejia MD) Constipation GERD (gastroesophageal reflux disease) Heart failure HTN (hypertension) Hypercholesteremia Knee pain Renal disease Social History marital status: lives independently: Yes Smoking Status: Former smoker Smoking Status: Former smoker alcohol intake frequency: 0-2 drinks per day Substance Use Type: does not use Exam Narrative Exam Narrative: General: Appears chronically ill and in mild distress. HEENT: Moist mucous membranes, normal sclera with reactive pupils, swelling under both eyes Neck: No JVD, supple Respiratory: Lungs are clear to auscultation, no wheezing no rales no rhonchi. Full and symmetrical air movement Cardiac: Mild tachycardia but otherwise Regular rate and rhythm no murmurs no bruits Abdomen: Soft, mild distension but nontender, good bowel tones, no flank pain Skin: Warm and dry, no rashes Neurologic: Grossly neurologically intact with no obvious asymmetries or abnormalities Extremities: No trauma, well perfused, no lower extremity edema Psych: Cooperative, poor insight into overall disease status Initial Vital Signs Initial Vital Signs: Vital Signs Temperature 99.0 F 01/17/21 19:45 Pulse Rate 116 H 01/17/21 19:45 Respiratory Rate 22 01/17/21 19:45 Blood Pressure 186/97 H 01/17/21 19:45 Pulse Oximetry 94 01/17/21 19:45 Course Orders Ordered: ED Orders 01/17/21 19:57 EKG-12 Lead Routine 01/17/21 20:06 Complete Blood Count AUTO DIFF Stat Comprehensive Metabolic Panel Stat Lipase Stat Partial Thromboplastin Time Stat Prothrombin Time INR Stat Troponin I Stat 01/17/21 23:00 EKG-12 Lead Stat 01/17/21 23:05 Troponin I Stat 01/17/21 23:15 COVID19 - ADMIT (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 swab/PCR) Stat Discontinued Medications Aspirin (Aspirin 81 Mg Chew Tab) 324 mg PO NOW ONE Stop: 01/17/21 22:56 Last Admin: 01/17/21 22:59 Dose: 324 mg Documented by: GUERO Sodium Chloride (Normal Saline 0.9%) 500 mls @ 1,000 mls/hr IV BOLUS ONE Stop: 01/17/21 20:41 Last Infusion: 01/17/21 20:42 Dose: 0 mls/hr Documented by: Admin: 01/17/21 20:12 Dose: 1,000 mls/hr Documented by: DEBBIE Sodium Chloride (Normal Saline 0.9%) 1,000 mls @ 1,000 mls/hr IV BOLUS ONE Stop: 01/17/21 22:52 Last Infusion: 01/18/21 00:38 Dose: 0 mls/hr Documented by: Admin: 01/17/21 22:26 Dose: 1,000 mls/hr Documented by: JARED Metoprolol Tartrate (Metoprolol Ir 25 Mg Tablet) 25 mg PO NOW ONE Stop: 01/17/21 23:21 Last Admin: 01/17/21 23:38 Dose: 25 mg Documented by: JARED Nitroglycerin (Nitroglycerin 0.4 Mg Sl Tab) 0.4 mg SL [id number] PRN PRN Reason: Chest Pain Last Admin: 01/17/21 23:07 Dose: 0.4 mg Documented by: GUERO Ondansetron HCl (Ondansetron 4 Mg/2 Ml Inj) 4 mg IV NOW ONE Stop: 01/17/21 21:54 Last Admin: 01/17/21 22:26 Dose: 4 mg Documented by: JARED Vital Signs Vital signs: Vital Signs - 8 hr 01/17/21 19:56 01/17/21 20:00 01/17/21 20:30 Pulse Rate 112 H 106 H 104 H Respiratory Rate 26 H 25 H Blood Pressure 186/90 H Pulse Oximetry 93 93 88 L 01/17/21 21:00 01/17/21 21:30 01/17/21 22:00 Pulse Rate 111 H 116 H 112 H Respiratory Rate 25 H 25 H 25 H Blood Pressure Pulse Oximetry 91 91 88 L 01/17/21 22:17 01/17/21 22:28 01/17/21 22:30 Pulse Rate 109 H 109 H 111 H Respiratory Rate 23 23 22 Blood Pressure 193/92 H 191/88 H 192/92 H Pulse Oximetry 91 92 91 01/17/21 23:00 01/17/21 23:01 01/17/21 23:20 Pulse Rate 106 H 105 H 107 H Respiratory Rate 19 21 25 H Blood Pressure 177/77 H 155/82 H Pulse Oximetry 94 94 94 01/17/21 23:30 01/18/21 00:00 01/18/21 00:30 Pulse Rate 101 H 98 H 93 H Respiratory Rate 22 19 23 Blood Pressure 160/74 H 140/63 141/65 H Pulse Oximetry 95 92 95 MDM - Nausea/Vomiting/Diarrhea Medical Records Attestation: I reviewed the patient's medical records. Lab Data Attestation: I reviewed the patient's lab results. Result diagrams: 01/17/21 20:06 01/17/21 20:06 Labs: Lab Results 01/17/21 01/17/21 01/17/21 Range/Units 20:06 20:06 20:06 WBC 6.0 (4.5-11.0) X10^3/uL RBC 5.25 (4.5-5.9) X10^6/uL Hgb 15.1 (13.5-17.5) g/dL Hct 45.3 (41-53) % MCV 86.3 (80-100) fL MCH 28.7 (26-34) PG MCHC 33.2 (30-36) % RDW 14.1 (11.6-14.8) % Plt Count 139 L (150-400) X10^3/uL Neut % (Auto) 89.0 H (50-75) % Lymph % (Auto) 4.6 L (25-40) % Page % (Auto) 5.3 (3-14) % Eos % (Auto) 0.6 L (2-4) % Baso % (Auto) 0.5 (0-2) % Neut # (Auto) 5400 (7124-5630) /uL Lymph # (Auto) 300 L (5196-6889) /uL Page # (Auto) 300 (0-900) /uL Eos # (Auto) 0 (0-450) /uL Baso # (Auto) 0 (0-100) /uL PT 13.1 H (10.1-12.7) SECONDS INR 1.1 (0.9-1.3) APTT 37 H D (26.4-36.2) SECONDS Sodium 142 (137-145) mmol/L Potassium 3.7 (3.4-5.1) mmol/L Chloride 103 (98-107) mmol/L Carbon Dioxide 28 (22-32) mmol/L BUN 25 H (9-20) mg/dL Creatinine 1.74 H (0.66-1.25) mg/dL Estimated GFR 39.2 L (>60) mL/min BUN/Creatinine Ratio 14.4 (6-22) Glucose 100 (80-110) mg/dL Calcium 9.9 (8.4-10.2) mg/dL Total Bilirubin 0.7 (0.2-1.3) mg/dL AST 57 (17-59) IU/L ALT 27 (<50) IU/L Alkaline Phosphatase 121 (38-126) U/L Troponin I (0.01-0.034) ng/mL Total Protein 7.6 (6.3-8.2) g/dL Albumin 4.6 (3.5-5.0) g/dL Globulin 3.0 (1.7-4.1) g/dL Albumin/Globulin Ratio 1.5 (1.0-2.8) Lipase 268 (23-300) U/L SARS-CoV-2 (PCR) (Negative) 01/17/21 01/17/21 01/17/21 Range/Units 20:06 23:05 23:15 WBC (4.5-11.0) X10^3/uL RBC (4.5-5.9) X10^6/uL Hgb (13.5-17.5) g/dL Hct (41-53) % MCV (80-100) fL MCH (26-34) PG MCHC (30-36) % RDW (11.6-14.8) % Plt Count (150-400) X10^3/uL Neut % (Auto) (50-75) % Lymph % (Auto) (25-40) % Page % (Auto) (3-14) % Eos % (Auto) (2-4) % Baso % (Auto) (0-2) % Neut # (Auto) (4450-4608) /uL Lymph # (Auto) (6496-5440) /uL Page # (Auto) (0-900) /uL Eos # (Auto) (0-450) /uL Baso # (Auto) (0-100) /uL PT (10.1-12.7) SECONDS INR (0.9-1.3) APTT (26.4-36.2) SECONDS Sodium (137-145) mmol/L Potassium (3.4-5.1) mmol/L Chloride (98-107) mmol/L Carbon Dioxide (22-32) mmol/L BUN (9-20) mg/dL Creatinine (0.66-1.25) mg/dL Estimated GFR (>60) mL/min BUN/Creatinine Ratio (6-22) Glucose (80-110) mg/dL Calcium (8.4-10.2) mg/dL Total Bilirubin (0.2-1.3) mg/dL AST (17-59) IU/L ALT (<50) IU/L Alkaline Phosphatase (38-126) U/L Troponin I 0.088 H 0.093 H (0.01-0.034) ng/mL Total Protein (6.3-8.2) g/dL Albumin (3.5-5.0) g/dL Globulin (1.7-4.1) g/dL Albumin/Globulin Ratio (1.0-2.8) Lipase (23-300) U/L SARS-CoV-2 (PCR) Negative (Negative) Urine Dip Bedside Urine Glucose 1000 mg/dl Bedside Urine Bilirubin - Negative Bedside Urine Ketone - Negative Urine Specific [place] 1.020 Bedside Urine Occult Blood + Bedside Urine pH 5.5 Bedside Urine Protein ++ 100 Bedside Urine Nitrite - Negative Bedside Urine Leukocytes - Negative Esterase ABG Data Interpretation: 7:54 p.m. Sinus tachycardia at a rate of [address] T wave abnormalities no comparison EKGs Normal axis Two thousand three hundred Sinus tach at 1:05 a.m[address] Normal axis Similar ST T wave changes again, nonspecific without specific ischemic pattern appreciated MDM Narrative Medical decision making narrative: 70-year-old gentleman presents with acute onset nausea vomiting and unsure have is his entire medical history. Initial troponin was slightly elevated as was renal function. Repeat troponin was slightly worse. Throughout events he did not specifically complain of chest pain however his nausea and general malaise sensation did improve with a single sublingual nitroglycerin. He was given aspirin and 25 mg of immediate release metoprolol with blood pressure and heart rate coming down nicely. He was given a L fluid after the description of significant volume of emesis and slight increase in his creatinine. Troponins were repeated EKGs were essentially unchanged and care is reviewed with Dr. Cornelius, cardiology. She had access to [facility] and access to additional medical records including of recent cardiology review with Dr. Vargas at [facility]. He does in fact have a diagnosis of diabetes. He had a heart catheterization that was completely clear in 2009. He had a nuclear medicine stress test in 2018 that was unremarkable. I history of chronic diastolic heart failure that has improved significantly with recent echocardiogram in November of this year showing ejection fraction up to 55% with medical therapy. He chronically has troponins in the 0.008-0.09 range which is where he is today and has creatinines ranging up into the 2 range and 1 point had been in the 3.5 range and discussing dialysis. He is currently being treated for tuberculosis with isoniazid, pyrazinamide, ethambutol and rifampin through the [place] and he reports that he does not have TB. In light of additional medical history now available it does appear that his lab abnormalities that are appreciated today are stable. I suspect that he is entirely contract that the tramadol taken on an empty stomach cause significant nausea and vomiting. Mild dehydration for which he has improved nicely. No evidence at this point of increasing troponins be on his baseline, or acute coronary syndrome, worsening renal failure beyond his baseline no evidence of acute anemia and with nausea resolved he is safe for home discharge. Discharge Plan Departure Patient Disposition: Home Clinical Impression: Acute vomiting, Acute dehydration Instructions: DI for Nausea -- Adult Activity Restrictions/Additional Instructions: Thank you for coming in today You did have some abnormalities on your blood work but, it does look like these are relatively stable and chronic. 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 Your renal function is in its usual range and the troponin levels have been noted to be in the 0.08 and 0.09 ranges with previous evaluations. I suspect that you are right, that taking the tramadol as well as your other medications on an empty stomach may have made your nausea significantly worse and then cause you to be somewhat dehydrated. At this point you have an thrown up, your heart rate has come down, your blood pressure is reassuring and you are feeling significantly better. I do believe it is safe for you to go home. I would like you to [facility] within the next week or two. If you have worsening symptoms please feel free to return to the emergency department Prescriptions: No Action polyethylene glycol 3350 [Miralax] 119 GM powder 17 gm PO QDAYP Qty: 0 RF: 0 diclofenac sodium [Voltaren] 1 % gel 1 tj Topical Q4H MDD 16 G (4 doses) PRN (Reason: osteoarthritis) Qty: 0 RF: 0 sildenafil [Viagra] 100 MG tablet 100 mg PO PRN MDD 100 mg PRN (Reason: Sexual Activity) Qty: 0 RF: 0 allopurinol 300 MG tablet 300 mg PO DAILY Qty: 0 RF: 0 doxazosin [Cardura] 8 MG tablet 8 mg PO BEDTIME Qty: 0 RF: 0 amlodipine 10 mg tablet 10 mg PO DAILY RF: 0 atorvastatin [Lipitor] 40 mg tablet 40 mg PO BEDTIME RF: 0 bumetanide 2 mg tablet 6 mg PO BID RF: 0 tolterodine [Detrol LA] 4 mg capsule,extended release 24hr 4 mg PO DAILY RF: 0 fexofenadine [Aller-ease] 180 mg tablet 180 mg PO DAILY RF: 0 spironolactone 25 mg tablet 12.5 mg PO BID RF: 0 losartan 100 mg tablet 100 mg PO DAILY RF: 0 cholecalciferol (vitamin D3) 1,000 unit capsule 2,000 unit PO DAILY RF: 0 PreviDent 5000 Plus 1.1 % cream 1 applic dental DIRECTED RF: 0 Dexilant 60 mg capsule,biphase delayed releas 60 mg PO DAILY RF: 0 insulin aspart U-100 100 unit/mL Solution See Rx Instructions .ROUTE .COMPLEX RF: 0 vitamin B complex Tablet 1 tab PO DAILY RF: 0 capsaicin 0.025 % cream 1 applic topical PRN PRN (Reason: pain) RF: 0 lisinopril 5 mg Tablet 5 mg PO DAILY RF: 0 Lyrica 75 mg capsule 75 mg PO BID RF: 0 carboxymethylcell-glycerin(PF) 0.5-0.9 % [place] 1 applic ophthalmic (eye) QID RF: 0 glimepiride 4 mg Tablet 4 mg PO BID RF: 0 multivitamin with minerals Capsule 1 cap PO DAILY RF: 0 artificial saliva (cmce-lytes) [place] With Pump 1 spray PO PRN PRN (Reason: Dry Mouth) RF: 0 ipratropium-albuterol 0.5 mg-3 mg(2.5 mg base)/3 mL Solution For Nebulization 1 ea inhalation DIRECTED RF: 0 insulin glargine 100 unit/mL Solution 70 unit SUBCUT BEDTIME RF: 0 sennosides-docusate sodium 8.6-50 mg Tablet 1 tab PO DAILY RF: 0 chlorhexidine gluconate 4 % Liquid 1 applic TOPICAL DAILY RF: 0 chlorhexidine gluconate 0.12 % Mouthwash 15 ml MUCOUS MEMBRANE BID RF: 0 flaxseed oil 2 cap PO DAILY RF: 0 cyclobenzaprine 10 mg tablet 10 mg PO TID PRN (Reason: muscle spasm) Qty: 30 RF: 0 tramadol 50 mg tablet 50 mg PO Q8H PRN (Reason: pain) Qty: 7 RF: 0 lidocaine 5 % adhesive patch,medicated 1 patch topical DAILY PRN (Reason: pain) Qty: 15 RF: 0 tramadol 50 mg tablet 50 mg PO TID PRN (Reason: pain) Qty: 10 RF: 0 Referrals: Luis Collier MD [Primary Care Provider] -
[2021-01-17 22:18] LABS: Troponin I 0.088 ng/mL (0.01-0.034)
[2021-01-17] MEDS: SODIUM CHLORIDE 0.9% 1,000 ML 1000 ML IV (22:26)
[2021-01-17] MEDS: ONDANSETRON 4 MG/2 ML INJ IV (22:26)
[2021-01-17] MEDS: ASPIRIN 81 MG CHEW TAB 324 MG PO (22:59)
[2021-01-17] MEDS: NITROGLYCERIN 0.4 MG SL TAB SL (23:07)
[2021-01-17 23:34] LABS: Troponin I 0.093 ng/mL (0.01-0.034)
[2021-01-17] MEDS: METOPROLOL IR 25 MG TABLET PO (23:38)
[2021-01-18] VITALS: BP 140/63; PULSE 98; RESP 19; O2SAT 92
[2021-01-18 00:11] LABS: COVID19 - ADMIT (NP swab/PCR) Negative (Negative)
[2021-01-18 00:30] VITALS: BP 141/65; PULSE 93; RESP 23; O2SAT 95
== END 2021-01-18 00:39 | disposition home or self-care (01) ==
PROVIDERS: Emergency Provider Emergency Medicine; PCP Student in an Organized Health Care Education/Training Program
DX: R11.2 Nausea with vomiting, unspecified (principal); E86.0 Dehydration; Z20.822 Contact with and (suspected) exposure to COVID-19
CPT/HCPCS: 36415; 80053; 81003; 83690; 84484; 85025; 85610; 85730; 87635; 93005; 93010; 96361; 96374; 99284; C9803; J2405

== ENCOUNTER 2021-01-18 18:23 | Emergency (ER) | payer OTHER, MEDICARE, SELFPAY ==
[2021-01-18] VITALS (33 sets, daily range): BP systolic 93–138; BP diastolic 44–69; PULSE 69–92; RESP 15–27; TEMP 37.4; O2SAT 87–98; BMI 39.4
--- NOTE | 2021-01-18 18:25 | DI.RAD.S_ITS ---
PROCEDURE: XR CHEST 1V INDICATIONS: chest pain TECHNIQUE: One view of the chest was acquired. COMPARISON: [facility], CT, CT CERVICAL SPINE WO CON, 05/23/2019, 14:51. [facility], CR, XR CHEST 1V, 11/28/2020, 19:22. [facility], CR, XR CHEST 2V, 05/23/2019, 16:27. FINDINGS: Semiupright. Surgical changes and devices: None. Lungs and pleura: Lungs are clear. No pleural effusions or pneumothorax. Mediastinum: Mediastinal contours appear normal. Heart size is prominent. Bones and chest wall: No suspicious bony lesions. Overlying soft tissues appear unremarkable. IMPRESSION: No acute cardiopulmonary abnormality identified. Dictated by: Bereket Murphy M.D. on 01/18/2021 at 19:31 Approved by: Bereket Murphy M.D. on 01/18/2021 at 19:32
[2021-01-18] MEDS: ONDANSETRON 4 MG/2 ML INJ IV (18:40)
[2021-01-18] MEDS: ASPIRIN 81 MG CHEW TAB 324 MG PO (18:41)
[2021-01-18] MEDS: NITROGLYCERIN 0.4 MG SL TAB SL (18:46)
--- NOTE | 2021-01-18 18:48 | ED.CHESTPAIN ---
HPI - Chest Pain General Chief Complaint: Chest Pain Stated Complaint: CHEST PAIN Time Seen by Provider: 01/18/21 18:25 Source: patient and family Mode of arrival: Family Vehicle Limitations: no limitations History of Present Illness HPI narrative: 70-year-old gentleman with a history of hypertension, hyperlipidemia, chronic diastolic dysfunction followed by cardiology group at [facility] in [place] chronic renal failure and chronically elevated troponins presents for the 2nd time in 24 hours with continued nausea, vomiting, central burning chest pain, diaphoresis and generally looking unwell. He was seen yesterday for similar symptoms. His symptoms had started abruptly at 2 in the afternoon and he attributed yesterday to working on his car and then taking tramadol on an empty stomach. He was found to be mildly dehydrated with a slight bump in his creatinine serial troponins were slightly elevated and care was reviewed with Cardiology with notation that the troponins at 0.08 and 0.09 are close to his baseline levels as is the degree of renal insufficiency noted, he had no specific acute ischemic EKG changes. After discussion we opted for discharge yesterday after of L of hydration with no continued burning or nausea symptoms. He states that over the course of the evening the burning returned began vomiting again this morning. He called the [place] hotline in the recommended he come in for additional evaluation. Today he looks more uncomfortable than yesterday and is more diaphoretic. His central chest burning is more intense, yesterday would describe it as uncomfortable and today he easily rates at a 5/10 in terms of pain. He does note that he has had more emesis today it has been slightly brownish. No abdominal pain, no palpitations, no dyspnea, no cough, no diarrhea, dysuria, flank pain, lower extremity edema, headaches, acute neurologic changes. Related Data Home Medications Medication Instructions Recorded Confirmed polyethylene glycol 3350 [Miralax] 17 gm PO QDAYP #0 04/30/13 05/23/19 allopurinol 300 mg PO DAILY #0 04/16/17 05/23/19 diclofenac sodium [Voltaren] 1 tj TOPICAL Q4H PRN #0 MDD 16 G 04/16/17 05/23/19 (4 doses) doxazosin [Cardura] 8 mg PO BEDTIME #0 04/16/17 05/23/19 sildenafil [Viagra] 100 mg PO PRN PRN #0 MDD 100 mg 04/16/17 03/24/19 amlodipine 10 mg PO DAILY 03/24/19 05/23/19 artificial saliva (cmce-lytes) 1 spray PO PRN PRN 03/24/19 05/23/19 atorvastatin [Lipitor] 40 mg PO BEDTIME 03/24/19 05/23/19 bumetanide 6 mg PO BID 03/24/19 05/23/19 capsaicin 1 applic TOPICAL PRN PRN 03/24/19 05/23/19 carboxymethylcell-glycerin(PF) 1 applic OPHTHALMIC (EYE) QID 03/24/19 05/23/19 cholecalciferol (vitamin D3) 2,000 unit PO DAILY 03/24/19 05/23/19 dexlansoprazole [Dexilant] 60 mg PO DAILY 03/24/19 05/23/19 fexofenadine [Aller-ease] 180 mg PO DAILY 03/24/19 05/23/19 fluoride (sodium) [PreviDent 5000 1 applic DENTAL DIRECTED 03/24/19 03/24/19 Plus] glimepiride 4 mg PO BID 03/24/19 05/23/19 insulin aspart U-100 See Rx Instructions .ROUTE .COMPLEX 03/24/19 05/23/19 lisinopril 5 mg PO DAILY 03/24/19 05/23/19 losartan 100 mg PO DAILY 03/24/19 05/23/19 multivitamin with minerals 1 cap PO DAILY 03/24/19 05/23/19 pregabalin [Lyrica] 75 mg PO BID 03/24/19 03/24/19 spironolactone 12.5 mg PO BID 03/24/19 05/23/19 tolterodine [Detrol LA] 4 mg PO DAILY 03/24/19 05/23/19 vitamin B complex 1 tab PO DAILY 03/24/19 05/23/19 chlorhexidine gluconate 1 applic TOPICAL DAILY 05/23/19 05/23/19 chlorhexidine gluconate 15 ml MUCOUS MEMBRANE BID 05/23/19 05/23/19 flaxseed oil 2 cap PO DAILY 05/23/19 05/23/19 insulin glargine 70 unit SUBCUT BEDTIME 05/23/19 05/23/19 ipratropium-albuterol 1 ea INHALATION DIRECTED 05/23/19 05/23/19 sennosides-docusate sodium 1 tab PO DAILY 05/23/19 05/23/19 Previous Rx's Medication Instructions Recorded cyclobenzaprine 10 mg PO TID PRN #30 tab 05/23/19 tramadol 50 mg PO Q8H PRN #7 tab 05/23/19 lidocaine 1 patch TOPICAL DAILY PRN #15 ea 10/21/20 tramadol 50 mg PO TID PRN #10 tab 10/21/20 Allergies Allergy/AdvReac Type Severity Reaction Status Date / Time No Known Drug Allergies Allergy Verified 05/23/19 13:26 Review of Systems Review of Systems Narrative: Remainder of complete review of systems is otherwise unremarkable except for that included in the HPI. Patient History Medical History Constipation GERD (gastroesophageal reflux disease) Heart failure HTN (hypertension) Hypercholesteremia Knee pain Renal disease Social History marital status: lives independently: Yes Smoking Status: Former smoker Smoking Status: Former smoker tobacco type: cigarettes alcohol intake frequency: 0-2 drinks per day Substance Use Type: does not use Exam Narrative Exam Narrative: General: Acutely ill-appearing, diaphoretic able to speak in full sentences in moderate pain. HEENT: Moist mucous membranes, normal sclera with reactive pupils, Neck: No JVD, supple Respiratory: Lungs are clear to auscultation, no wheezing no rales no rhonchi. Full and symmetrical air movement Cardiac: Regular rate and rhythm no murmurs no bruits Abdomen: Soft, nontender, good bowel tones, no flank pain Skin: Mildly diaphoretic but nicely perfused,, no rashes Neurologic: Grossly neurologically intact with no obvious asymmetries or abnormalities Extremities: No trauma, no significant lower extremity edema Psych: Cooperative, appropriate insight and affect Initial Vital Signs Initial Vital Signs: Vital Signs Temperature 99.4 F 01/18/21 18:27 Pulse Rate 89 01/18/21 18:27 Respiratory Rate 24 01/18/21 18:27 Blood Pressure 138/64 01/18/21 18:27 Pulse Oximetry 94 01/18/21 18:27 Course Orders Ordered: ED Orders 01/18/21 18:36 Complete Blood Count AUTO DIFF Stat Comprehensive Metabolic Panel Stat Lipase Stat NT-proBNP (BNP-Adult 18+) Stat Partial Thromboplastin Time Stat Prothrombin Time INR Stat Troponin & CK Cardiac Panel Stat 01/18/21 19:00 COVID19 -Nasal swab/Pre-Proc Stat Discontinued Medications Aspirin (Aspirin 81 Mg Chew Tab) 324 mg PO NOW ONE Stop: 01/18/21 18:34 Last Admin: 01/18/21 18:41 Dose: 324 mg Documented by: OMAR Heparin Sodium (Porcine) (Heparin 5,000 Unit/Ml Vial) 5,000 unit IV NOW ONE Stop: 01/18/21 18:58 Last Admin: 01/18/21 19:35 Dose: 5,000 unit Documented by: OMAR Heparin Sodium/Dextrose (Heparin Drip) 25,000 unit in 500 mls @ 27.456 mls/hr IV CONT ORLY; Protocol Last Infusion: 01/18/21 22:53 Dose: 0 units/kg/hr, 0 mls/hr Documented by: Admin: 01/18/21 19:36 Dose: 12 units/kg/hr, 27.456 mls/hr Documented by: OMAR Potassium Chloride 20 meq/ (Sodium Chloride) 260 mls @ 130 mls/hr IV NOW ONE Stop: 01/18/21 21:11 Last Infusion: 01/18/21 21:47 Dose: 0 mls/hr Documented by: OMAR Cosigned by: SONNY Admin: 01/18/21 19:40 Dose: 130 mls/hr Documented by: OMAR Cosigned by: SONNY Lorazepam (Lorazepam 0.5 Mg Tablet) 1 mg PO NOW ONE Stop: 01/18/21 22:43 Last Admin: 01/18/21 22:45 Dose: 1 mg Documented by: OMAR Nitroglycerin (Nitroglycerin 0.4 Mg Sl Tab) 0.4 mg SL [id number] PRN PRN Reason: Chest Pain Last Admin: 01/18/21 18:46 Dose: 0.4 mg Documented by: OMAR Nitroglycerin (Nitroglycerin Oint 1 Inch/Gm Oint...G.) 0.5 inch TOP NOW ONE Stop: 01/18/21 18:58 Last Admin: 01/18/21 19:35 Dose: 0.5 inch Documented by: OMAR Ondansetron HCl (Ondansetron 4 Mg/2 Ml Inj) 4 mg IV NOW ONE Stop: 01/18/21 18:34 Last Admin: 01/18/21 18:40 Dose: 4 mg Documented by: OMAR Pantoprazole Sodium (Pantoprazole 40 Mg Vial) 40 mg IV NOW ONE Stop: 01/18/21 21:30 Last Admin: 01/18/21 21:39 Dose: 40 mg Documented by: JARED Vital Signs Vital signs: Vital Signs - 8 hr 01/18/21 19:30 01/18/21 19:35 01/18/21 19:40 Pulse Rate 83 81 84 Respiratory Rate 22 21 21 Blood Pressure 106/59 L 106/69 Pulse Oximetry 89 L 90 L 92 01/18/21 19:45 01/18/21 19:50 01/18/21 19:55 Pulse Rate 81 76 75 Respiratory Rate 21 20 18 Blood Pressure 108/55 L Pulse Oximetry 87 L 96 97 01/18/21 20:00 01/18/21 20:05 01/18/21 20:10 Pulse Rate 75 75 74 Respiratory Rate 19 18 18 Blood Pressure 112/56 L Pulse Oximetry 97 98 98 01/18/21 20:15 01/18/21 20:20 01/18/21 20:30 Pulse Rate 76 75 79 Respiratory Rate 17 17 22 Blood Pressure 110/57 L 113/56 L Pulse Oximetry 97 97 97 01/18/21 20:45 01/18/21 21:00 01/18/21 21:15 Pulse Rate 73 72 72 Respiratory Rate 16 15 15 Blood Pressure 107/56 L 101/57 L 105/55 L Pulse Oximetry 97 97 97 01/18/21 21:30 01/18/21 21:31 01/18/21 21:45 Pulse Rate 73 78 72 Respiratory Rate 26 H 25 H 22 Blood Pressure 111/61 Pulse Oximetry 96 96 97 01/18/21 21:46 01/18/21 22:00 01/18/21 22:01 Pulse Rate 71 69 74 Respiratory Rate 21 19 23 Blood Pressure 106/47 L 93/44 L Pulse Oximetry 96 98 98 01/18/21 22:15 01/18/21 22:16 Pulse Rate 83 76 Respiratory Rate 24 18 Blood Pressure 106/53 L Pulse Oximetry 95 96 MDM - Chest Pain Medical Records Data Attestation: I reviewed the patient's medical records. Lab Data Attestation: I reviewed the patient's lab results. Result diagrams: 01/18/21 18:36 01/18/21 18:36 Labs: Lab Results 01/18/21 01/18/21 01/18/21 Range/Units 18:36 18:36 18:36 WBC 3.0 L (4.5-11.0) X10^3/uL RBC 4.69 (4.5-5.9) X10^6/uL Hgb 13.5 (13.5-17.5) g/dL Hct 40.8 L (41-53) % MCV 87.0 (80-100) fL MCH 28.8 (26-34) PG MCHC 33.1 (30-36) % RDW 14.4 (11.6-14.8) % Plt Count 115 L (150-400) X10^3/uL Neut % (Auto) 72.4 (50-75) % Lymph % (Auto) 16.1 L (25-40) % [place] % (Auto) 10.6 (3-14) % Eos % (Auto) 0.2 L (2-4) % Baso % (Auto) 0.7 (0-2) % Neut # (Auto) 2200 (2668-2730) /uL Lymph # (Auto) 500 L (3839-6466) /uL [place] # (Auto) 300 (0-900) /uL Eos # (Auto) 0 (0-450) /uL Baso # (Auto) 0 (0-100) /uL PT 13.5 H (10.1-12.7) SECONDS INR 1.2 (0.9-1.3) APTT 34 (26.4-36.2) SECONDS Sodium 137 (137-145) mmol/L Potassium 2.9 L (3.4-5.1) mmol/L Chloride 100 (98-107) mmol/L Carbon Dioxide 29 (22-32) mmol/L BUN 25 H (9-20) mg/dL Creatinine 1.85 H (0.66-1.25) mg/dL Estimated GFR 36.5 L (>60) mL/min BUN/Creatinine Ratio 13.5 (6-22) Glucose 93 (80-110) mg/dL Calcium 8.7 (8.4-10.2) mg/dL Total Bilirubin 0.5 (0.2-1.3) mg/dL AST 44 (17-59) IU/L ALT 26 (<50) IU/L Alkaline Phosphatase 89 (38-126) U/L Total Creatine Kinase 576 H (55-170) U/L CK-MB (CK-2) 1.13 (<2.37) ng/mL CK-MB (CK-2) Rel Index 0.2 L (1.5-5.0) % Troponin I 0.069 H (0.01-0.034) ng/mL NT-Pro-B Natriuret Pep (<125) pg/mL Total Protein 6.3 (6.3-8.2) g/dL Albumin 3.7 (3.5-5.0) g/dL Globulin 2.6 (1.7-4.1) g/dL Albumin/Globulin Ratio 1.4 (1.0-2.8) Lipase 162 (23-300) U/L SARS-CoV-2 (PCR) (Negative) 01/18/21 01/18/21 Range/Units 18:36 19:00 WBC (4.5-11.0) X10^3/uL RBC (4.5-5.9) X10^6/uL Hgb (13.5-17.5) g/dL Hct (41-53) % MCV (80-100) fL MCH (26-34) PG MCHC (30-36) % RDW (11.6-14.8) % Plt Count (150-400) X10^3/uL Neut % (Auto) (50-75) % Lymph % (Auto) (25-40) % [place] % (Auto) (3-14) % Eos % (Auto) (2-4) % Baso % (Auto) (0-2) % Neut # (Auto) (3963-9735) /uL Lymph # (Auto) (5160-1994) /uL [place] # (Auto) (0-900) /uL Eos # (Auto) (0-450) /uL Baso # (Auto) (0-100) /uL PT (10.1-12.7) SECONDS INR (0.9-1.3) APTT (26.4-36.2) SECONDS Sodium (137-145) mmol/L Potassium (3.4-5.1) mmol/L Chloride (98-107) mmol/L Carbon Dioxide (22-32) mmol/L BUN (9-20) mg/dL Creatinine (0.66-1.25) mg/dL Estimated GFR (>60) mL/min BUN/Creatinine Ratio (6-22) Glucose (80-110) mg/dL Calcium (8.4-10.2) mg/dL Total Bilirubin (0.2-1.3) mg/dL AST (17-59) IU/L ALT (<50) IU/L Alkaline Phosphatase (38-126) U/L Total Creatine Kinase (55-170) U/L CK-MB (CK-2) (<2.37) ng/mL CK-MB (CK-2) Rel Index (1.5-5.0) % Troponin I (0.01-0.034) ng/mL NT-Pro-B Natriuret Pep 817 H (<125) pg/mL Total Protein (6.3-8.2) g/dL Albumin (3.5-5.0) g/dL Globulin (1.7-4.1) g/dL Albumin/Globulin Ratio (1.0-2.8) Lipase (23-300) U/L SARS-CoV-2 (PCR) Negative (Negative) ECG Data Attestation: I personally reviewed and interpreted this ECG as follows: Interpretation: Sinus rhythm at a rate of 85 Normal axis, normal intervals In comparison to EKGs from last night, he does have continued nonspecific T-wave changes with subtle evolution of changes. Lead 1 with more inverted T-waves, subtle ST elevation in AVR with subtle depression and flipped T-waves in aVL. Subtle elevation in V1, 2, 3 that is similar to yesterday consistent with LVH. He does not meet any criteria for ST-elevation myocardial injury MDM Narrative Medical decision making narrative: 70-year-old gentleman presents with continuing burning chest pain and nausea. He has known diastolic disease with improvement in echocardiogram with ejection fraction increasing from the mid 30s to the mid 50s with last echocardiogram performed in November. Given his clinical presentation the worsening central burning chest pain and the subtle EKG evolution acute coronary syndrome is certainly concerning. With single sublingual nitroglycerin he is dramatically more comfortable, and the burning central chest pain has completely resolved. At this time, will presumed this is an acute coronary syndrome will begin heparin, will place nitro ointment and await remainder of blood work Troponin is down 2.0 6 9 however he clinically looks better and is pain free after 1 sublingual nitro currently with 0.5 in of nitropaste an on heparin drip. Given his constellation of medical problems, recurrent episode within 24 hours and subtle EKG changes will admit him for further observation. Possibility of an upper GI bleed is entertained. He will be given a dose of Protonix. His hemoglobin has come down slightly from yesterday however I think he was slightly hemoconcentrated yesterday due to dehydration. In November hemoglobin was 13.8 yesterday was 15.1 and today is 13.5. Will continue to watch serial hemoglobins. At this point I do not think he needs to be on a proton pump continuous drip. There are no beds currently at [facility]. He has been accepted at [facility]. He remains pain free at this time with heparin drip in place. Care is reviewed with who accepts patient in transfer. Critical Care Time Critical Care Time Critical Care Time: Yes Total Critical Care Time: 32 Attestation: Critical care time is separate from other billable procedures. This critical care time includes consultation with family and other consulting doctors, review of records, and interpretation of data from labs, EKGs and imaging as well as managements of acute chest pain Discharge Plan Departure Patient Disposition: [facility] Clinical Impression: Acute coronary syndrome, Acute hypokalemia Prescriptions: No Action polyethylene glycol 3350 [Miralax] 119 GM powder 17 gm PO QDAYP Qty: 0 RF: 0 diclofenac sodium [Voltaren] 1 % gel 1 tj Topical Q4H MDD 16 G (4 doses) PRN (Reason: osteoarthritis) Qty: 0 RF: 0 sildenafil [Viagra] 100 MG tablet 100 mg PO PRN MDD 100 mg PRN (Reason: Sexual Activity) Qty: 0 RF: 0 allopurinol 300 MG tablet 300 mg PO DAILY Qty: 0 RF: 0 doxazosin [Cardura] 8 MG tablet 8 mg PO BEDTIME Qty: 0 RF: 0 amlodipine 10 mg tablet 10 mg PO DAILY RF: 0 atorvastatin [Lipitor] 40 mg tablet 40 mg PO BEDTIME RF: 0 bumetanide 2 mg tablet 6 mg PO BID RF: 0 tolterodine [Detrol LA] 4 mg capsule,extended release 24hr 4 mg PO DAILY RF: 0 fexofenadine [Aller-ease] 180 mg tablet 180 mg PO DAILY RF: 0 spironolactone 25 mg tablet 12.5 mg PO BID RF: 0 losartan 100 mg tablet 100 mg PO DAILY RF: 0 cholecalciferol (vitamin D3) 1,000 unit capsule 2,000 unit PO DAILY RF: 0 PreviDent 5000 Plus 1.1 % cream 1 applic dental DIRECTED RF: 0 Dexilant 60 mg capsule,biphase delayed releas 60 mg PO DAILY RF: 0 insulin aspart U-100 100 unit/mL Solution See Rx Instructions .ROUTE .COMPLEX RF: 0 vitamin B complex Tablet 1 tab PO DAILY RF: 0 capsaicin 0.025 % cream 1 applic topical PRN PRN (Reason: pain) RF: 0 lisinopril 5 mg Tablet 5 mg PO DAILY RF: 0 Lyrica 75 mg capsule 75 mg PO BID RF: 0 carboxymethylcell-glycerin(PF) 0.5-0.9 % [place] 1 applic ophthalmic (eye) QID RF: 0 glimepiride 4 mg Tablet 4 mg PO BID RF: 0 multivitamin with minerals Capsule 1 cap PO DAILY RF: 0 artificial saliva (cmce-lytes) [place] With Pump 1 spray PO PRN PRN (Reason: Dry Mouth) RF: 0 ipratropium-albuterol 0.5 mg-3 mg(2.5 mg base)/3 mL Solution For Nebulization 1 ea inhalation DIRECTED RF: 0 insulin glargine 100 unit/mL Solution 70 unit SUBCUT BEDTIME RF: 0 sennosides-docusate sodium 8.6-50 mg Tablet 1 tab PO DAILY RF: 0 chlorhexidine gluconate 4 % Liquid 1 applic TOPICAL DAILY RF: 0 chlorhexidine gluconate 0.12 % Mouthwash 15 ml MUCOUS MEMBRANE BID RF: 0 flaxseed oil 2 cap PO DAILY RF: 0 cyclobenzaprine 10 mg tablet 10 mg PO TID PRN (Reason: muscle spasm) Qty: 30 RF: 0 tramadol 50 mg tablet 50 mg PO Q8H PRN (Reason: pain) Qty: 7 RF: 0 lidocaine 5 % adhesive patch,medicated 1 patch topical DAILY PRN (Reason: pain) Qty: 15 RF: 0 tramadol 50 mg tablet 50 mg PO TID PRN (Reason: pain) Qty: 10 RF: 0 Referrals: Luis Collier MD [Primary Care Provider] -
[2021-01-18 18:52] LABS: Add Manual Diff / Slide Review NO; Basophils Absolute Auto 0 /uL (0-100); Basophils Percent Auto 0.7 % (0-2); Eosinophils Absolute Auto 0 /uL (0-450); Eosinophils Percent Auto 0.2 % (2-4); Hematocrit 40.8 % (41-53); Hemoglobin 13.5 g/dL (13.5-17.5); Lymphocytes Absolute Auto 500 /uL (1100-4500); Lymphocytes Percent Auto 16.1 % (25-40); Mean Corpuscular HGB Conc 33.1 % (30-36); Mean Corpuscular Hemoglobin 28.8 PG (26-34); Monocytes Absolute Auto 300 /uL (0-900); Monocytes Percent Auto 10.6 % (3-14); Neutrophils Absolute Auto 2200 /uL (1500-7000); Neutrophils Percent Auto 72.4 % (50-75); Platelet Count 115 X10^3/uL (150-400); Red Blood Cell Count 4.69 X10^6/uL (4.5-5.9); Red Cell Distribution Width 14.4 % (11.6-14.8)
[2021-01-18 18:58] LABS: Alanine Aminotransferase 26 IU/L (<50); Albumin 3.7 g/dL (3.5-5.0); Albumin Globulin Ratio 1.4 (1.0-2.8); Alkaline Phosphatase 89 U/L (38-126); Aspartate Aminotransferase 44 IU/L (17-59); BUN Creatinine Ratio 13.5 (6-22); Bilirubin Total 0.5 mg/dL (0.2-1.3); Blood Urea Nitrogen 25 mg/dL (9-20); Calcium 8.7 mg/dL (8.4-10.2); Carbon Dioxide 29 mmol/L (22-32); Chloride 100 mmol/L (98-107); Creatine Kinase 576 U/L (55-170); Estimated Glomerular Filt Rate 36.5 mL/min (>60); Globulin 2.6 g/dL (1.7-4.1); Glucose 93 mg/dL (80-110); HEMOLYSIS < 15 (0-50); Lipase 162 U/L (23-300); Potassium 2.9 mmol/L (3.4-5.1); Sodium 137 mmol/L (137-145); Total Protein 6.3 g/dL (6.3-8.2)
[2021-01-18 19:07] LABS: NT-proBNP (BNP-Adult 18+) 817 pg/mL (<125)
[2021-01-18 19:10] LABS: INR 1.2 (0.9-1.3); Prothrombin Time 13.5 SECONDS (10.1-12.7); Troponin I 0.069 ng/mL (0.01-0.034)
[2021-01-18 19:13] LABS: CKMB % Relative Index 0.2 % (1.5-5.0); Creatine Kinase MB 1.13 ng/mL (<2.37); PTT Partial Thromboplastin Tim 34 SECONDS (26.4-36.2)
[2021-01-18] MEDS: NITROGLYCERIN OINT 1 INCH/GM OINT...G. 0.5 INCH TOP (19:35)
[2021-01-18] MEDS: HEPARIN 5,000 UNIT/ML VIAL 5000 UNIT IV (19:35)
[2021-01-18] MEDS: HEPARIN DRIP 25,000 UNIT/500 ML IV.SOLN 27.456 UNIT IV (19:36)
[2021-01-18] MEDS: POTASSIUM CHLORIDE 20 MEQ in SODIUM CHLORIDE 0.9% 250 ML 130 ML IV (19:40)
[2021-01-18 19:42] LABS: COVID19 -Nasal RAPID Negative (Negative)
[2021-01-18] MEDS: PANTOPRAZOLE 40 MG VIAL IV (21:39)
[2021-01-18] MEDS: LORazepam 0.5 MG TABLET 1 MG PO (22:45)
--- NOTE | 2021-01-18 22:53 | PC.NURSE ---
Heparin continued w/ [facility]WA during transfer to [facility].
== END 2021-01-18 22:53 | disposition short-term general hospital (02) ==
PROVIDERS: Emergency Provider Emergency Medicine; PCP Student in an Organized Health Care Education/Training Program
DX: I24.9 Acute ischemic heart disease, unspecified (principal); E87.6 Hypokalemia; R11.2 Nausea with vomiting, unspecified
CPT/HCPCS: 36415; 71045; 80053; 82550; 82553; 83690; 83880; 84484; 85025; 85610; 85730; 87635; 93005; 93010; 96365; 96368; 96375; 99285; 99291; C9803; C9113; J1644; J2405; J3480

== ENCOUNTER 2021-02-01 22:40 | Emergency (ER) | payer OTHER, SELFPAY ==
[2021-02-01 22:53] VITALS: BP 197/86; PULSE 89; RESP 17; TEMP 37; O2SAT 95; BMI 38.5
[2021-02-01 23:00] VITALS: BP 171/75; PULSE 83; RESP 20; O2SAT 93
--- NOTE | 2021-02-01 23:10 | ED.EXTPRO ---
HPI - Extremity Problem General Chief complaint: Extremity Problem,Nontraumatic Stated complaint: RIGHT & LEFT LEG SCIATICA THROWING UP Time Seen by Provider: 02/01/21 23:10 Source: patient Mode of arrival: Ambulatory Limitations: no limitations History of Present Illness HPI Narrative: Patient is a 70-year-old male coronary artery disease, chronic elevation of troponins is presenting today for right-sided sciatic pain. He actually was seen evaluated here twice on January 17 and January 18 for nausea vomiting. He is found have elevation of troponins and transferred to [facility]. He says he followed up with his clinical systems educator yesterday who states that his heart is ?fine.? However he continues to vomit today. Cardiology states that he needs to see GI specialist. He really is here for his back pain which starts in his left lumbar area and radiates all the way down his entire left leg. He is unable to take NSAIDs he started taking prednisone he also cannot take gabapentin but did take pregabalin, which he took and was not having any relief. He really is wanting something for pain. However he is feeling nauseous and vomiting. He denies any chest pain or shortness of breath he has no abdominal pain. Denies any fever or chills. Related Data Home Medications Medication Instructions Recorded Confirmed polyethylene glycol 3350 [Miralax] 17 gm PO QDAYP #0 04/30/13 05/23/19 allopurinol 300 mg PO DAILY #0 04/16/17 05/23/19 diclofenac sodium [Voltaren] 1 tj TOPICAL Q4H PRN #0 MDD 16 G 04/16/17 05/23/19 (4 doses) doxazosin [Cardura] 8 mg PO BEDTIME #0 04/16/17 05/23/19 sildenafil [Viagra] 100 mg PO PRN PRN #0 MDD 100 mg 04/16/17 03/24/19 amlodipine 10 mg PO DAILY 03/24/19 05/23/19 artificial saliva (cmce-lytes) 1 spray PO PRN PRN 03/24/19 05/23/19 atorvastatin [Lipitor] 40 mg PO BEDTIME 03/24/19 05/23/19 bumetanide 6 mg PO BID 03/24/19 05/23/19 capsaicin 1 applic TOPICAL PRN PRN 03/24/19 05/23/19 carboxymethylcell-glycerin(PF) 1 applic OPHTHALMIC (EYE) QID 03/24/19 05/23/19 cholecalciferol (vitamin D3) 2,000 unit PO DAILY 03/24/19 05/23/19 dexlansoprazole [Dexilant] 60 mg PO DAILY 03/24/19 05/23/19 fexofenadine [Aller-ease] 180 mg PO DAILY 03/24/19 05/23/19 fluoride (sodium) [PreviDent 5000 1 applic DENTAL DIRECTED 03/24/19 03/24/19 Plus] glimepiride 4 mg PO BID 03/24/19 05/23/19 insulin aspart U-100 See Rx Instructions .ROUTE .COMPLEX 03/24/19 05/23/19 lisinopril 5 mg PO DAILY 03/24/19 05/23/19 losartan 100 mg PO DAILY 03/24/19 05/23/19 multivitamin with minerals 1 cap PO DAILY 03/24/19 05/23/19 pregabalin [Lyrica] 75 mg PO BID 03/24/19 03/24/19 spironolactone 12.5 mg PO BID 03/24/19 05/23/19 tolterodine [Detrol LA] 4 mg PO DAILY 03/24/19 05/23/19 vitamin B complex 1 tab PO DAILY 03/24/19 05/23/19 chlorhexidine gluconate 1 applic TOPICAL DAILY 05/23/19 05/23/19 chlorhexidine gluconate 15 ml MUCOUS MEMBRANE BID 05/23/19 05/23/19 flaxseed oil 2 cap PO DAILY 05/23/19 05/23/19 insulin glargine 70 unit SUBCUT BEDTIME 05/23/19 05/23/19 ipratropium-albuterol 1 ea INHALATION DIRECTED 05/23/19 05/23/19 sennosides-docusate sodium 1 tab PO DAILY 05/23/19 05/23/19 Previous Rx's Medication Instructions Recorded cyclobenzaprine 10 mg PO TID PRN #30 tab 05/23/19 tramadol 50 mg PO Q8H PRN #7 tab 05/23/19 lidocaine 1 patch TOPICAL DAILY PRN #15 ea 10/21/20 tramadol 50 mg PO TID PRN #10 tab 10/21/20 Allergies Allergy/AdvReac Type Severity Reaction Status Date / Time No Known Drug Allergies Allergy Verified 05/23/19 13:26 Review of Systems Review of Systems ROS Unobtainable: All systems reviewed & are unremarkable except as noted in HPI and below Constitutional Constitutional: Denies chills, Denies fever(s), Denies lethargy and Denies weakness ENT Ears, Nose, Mouth, and Throat: Denies change in voice, Denies neck pain and Denies sore throat Cardiovascular Cardiovascular: Reports as per HPI, Denies dyspnea and Denies dyspnea on exertion Respiratory Respiratory: Denies cough, Denies dyspnea, Denies dyspnea on exertion and Denies wheezing Gastrointestinal Gastrointestinal: Denies abdominal pain, Denies change in bowel habits, Denies diarrhea, Reports nausea and Reports vomiting Musculoskeletal Musculoskeletal: Reports as per HPI, Reports back pain, Denies myalgias, Denies neck pain and Reports radiating pain into limb (Right leg) Integumentary/Breasts Skin/Breast: Denies pruritus, Denies erythema, Denies rash and Denies wounds Neurologic Neurologic: Denies weakness Allergic/Immunologic Allergic/Immunologic: Denies wheezing Patient History Medical History Constipation GERD (gastroesophageal reflux disease) Heart failure HTN (hypertension) Hypercholesteremia Knee pain Renal disease Social History marital status: lives independently: Yes Smoking Status: Former smoker Smoking Status: Former smoker tobacco type: cigarettes alcohol intake frequency: 0-2 drinks per day Substance Use Type: does not use Exam Initial Vital Signs Initial Vital Signs: Vital Signs Temperature 98.6 F 02/01/21 22:53 Pulse Rate 89 02/01/21 22:53 Respiratory Rate 17 02/01/21 22:53 Blood Pressure 197/86 H 02/01/21 22:53 Pulse Oximetry 95 02/01/21 22:53 GENERAL: Alert 62-year-old male sitting in chair he does appear uncomfortable and in no acute distress. HEENT: Head atraumatic,EOMI, pupils reactive, face symmetric, moist mucous membranes CARDIOVASCULAR: Regular rate and rhythm without murmurs, rubs or gallops. RESPIRATORY: Breath sounds equal bilaterally, no wheezes rales or rhonchi. ABDOMEN: Soft, nontender. Normoactive bowel sounds all 4 quadrants. No guarding or rebound. BACK: No vertebral tenderness no step-offs he does have pain around L4-L5 more on the right than the left : No CVA tenderness EXTREMITIES: Normal range of motion, no clubbing or edema. Neurovascularly intact. Strong distal right pedal pulse NEUROLOGICAL: Alert and oriented x4.Normal gait and speech. Cranial nerves II through XII grossly intact. Sensation in lower extremities intact SKIN: Warm, dry, no laceration, no petechiae, no rashes or lesions. Course Orders Ordered: ED Orders 02/01/21 23:48 EKG-12 Lead Stat 02/01/21 23:55 Complete Blood Count AUTO DIFF Stat Comprehensive Metabolic Panel Stat Lipase Stat Troponin & CK Cardiac Panel Stat Discontinued Medications Acetaminophen (Acetaminophen 325 Mg Tablet) 975 mg PO NOW ONE Stop: 02/02/21 00:19 Last Admin: 02/02/21 00:21 Dose: 975 mg Documented by: SONNY Hydrocodone Bitart/Acetaminophen (Hydrocodone/Acet 5/325 Prepack) 1 bottle [facility] [place] SEEINSTR ONE Stop: 02/02/21 01:45 Last Admin: 02/02/21 01:48 Dose: 1 bottle Documented by: SONNY Cyclobenzaprine HCl (Cyclobenzaprine 5 Mg Tablet) 5 mg PO NOW ONE Stop: 02/02/21 00:19 Last Admin: 02/02/21 00:27 Dose: Not Given Documented by: SONNY Cyclobenzaprine HCl (Cyclobenzaprine 10 Mg Tablet) 10 mg PO NOW ONE Stop: 02/02/21 00:22 Last Admin: 02/02/21 00:23 Dose: 10 mg Documented by: SONNY Cyclobenzaprine HCl (Cyclobenzaprine 10 Mg Prepack) 1 bottle [facility] [place] SEE[facility] ONE Stop: 02/02/21 01:45 Last Admin: 02/02/21 01:48 Dose: 1 bottle Documented by: SONNY Hydromorphone HCl (Hydromorphone 0.5 Mg Inj) 0.5 mg IV NOW ONE Stop: 02/01/21 23:49 Last Admin: 02/02/21 00:00 Dose: 0.5 mg Documented by: SONNY Lidocaine HCl 8.4 ml/ Sodium (Chloride) 58.4 mls @ 350.4 mls/hr IV NOW ONE Stop: 02/02/21 01:16 Last Infusion: 02/02/21 01:31 Dose: 0 mls/hr Documented by: Admin: 02/02/21 01:20 Dose: 350.4 mls/hr Documented by: SONNY Ketorolac Tromethamine (Ketorolac 30 Mg/Ml Vial) 15 mg IV NOW ONE Stop: 02/02/21 01:45 Last Admin: 02/02/21 01:48 Dose: 15 mg Documented by: SONNY Ondansetron HCl (Ondansetron 4 Mg/2 Ml Inj) 4 mg IV NOW ONE Stop: 02/01/21 23:49 Last Admin: 02/01/21 23:59 Dose: 4 mg Documented by: SONNY Vital Signs Vital signs: Vital Signs - 8 hr 02/01/21 22:53 02/01/21 23:00 02/02/21 00:05 Temperature 98.6 F Pulse Rate 89 83 Respiratory Rate 17 20 20 Blood Pressure 197/86 H 171/75 H Pulse Oximetry 95 93 82 L 02/02/21 00:07 02/02/21 00:16 02/02/21 01:23 Temperature Pulse Rate 74 72 Respiratory Rate 17 18 Blood Pressure 158/71 H 159/74 H Pulse Oximetry 94 91 94 02/02/21 01:30 Temperature Pulse Rate 69 Respiratory Rate 16 Blood Pressure 152/69 H Pulse Oximetry 96 MDM - Extremity (Nontraumatic) Lab Data Result diagrams: 02/01/21 23:55 02/01/21 23:55 Labs: Lab Results 02/01/21 02/01/21 Range/Units 23:55 23:55 WBC 4.1 L (4.5-11.0) X10^3/uL RBC 4.80 (4.5-5.9) X10^6/uL Hgb 13.9 (13.5-17.5) g/dL Hct 41.4 (41-53) % MCV 86.4 (80-100) fL MCH 28.9 (26-34) PG MCHC 33.5 (30-36) % RDW 14.4 (11.6-14.8) % Plt Count 178 (150-400) X10^3/uL Neut % (Auto) 51.7 (50-75) % Lymph % (Auto) 31.7 (25-40) % Haines % (Auto) 12.1 (3-14) % Eos % (Auto) 3.7 (2-4) % Baso % (Auto) 0.8 (0-2) % Neut # (Auto) 2100 (6497-3709) /uL Lymph # (Auto) 1300 (5569-8257) /uL Haines # (Auto) 500 (0-900) /uL Eos # (Auto) 200 (0-450) /uL Baso # (Auto) 0 (0-100) /uL Sodium 139 (137-145) mmol/L Potassium 4.2 (3.4-5.1) mmol/L Chloride 100 (98-107) mmol/L Carbon Dioxide 29 (22-32) mmol/L BUN 31 H (9-20) mg/dL Creatinine 1.69 H (0.66-1.25) mg/dL Estimated GFR 40.6 L (>60) mL/min BUN/Creatinine Ratio 18.3 (6-22) Glucose 216 H (80-110) mg/dL Calcium 9.6 (8.4-10.2) mg/dL Total Bilirubin 0.3 (0.2-1.3) mg/dL AST 26 (17-59) IU/L ALT 24 (<50) IU/L Alkaline Phosphatase 87 (38-126) U/L Total Creatine Kinase 136 (55-170) U/L CK-MB (CK-2) 1.01 (<2.37) ng/mL CK-MB (CK-2) Rel Index 0.7 L (1.5-5.0) % Troponin I 0.058 H (0.01-0.034) ng/mL Total Protein 6.9 (6.3-8.2) g/dL Albumin 4.3 (3.5-5.0) g/dL Globulin 2.6 (1.7-4.1) g/dL Albumin/Globulin Ratio 1.7 (1.0-2.8) Lipase 304 H (23-300) U/L ECG Data Attestation EKG: I personally reviewed and interpreted this ECG as follows: Prior ECG tracings: available for review Interpretation: Normal sinus rhythm rate 76 p.r. interval 182 you are S1-[address] changes or T-wave inversions MDM Narrative Medical decision making narrative: Patient blood work is overall stable and reassuring. Requiring multiple medications for pain control. Initially said cannot take NSAIDs soon was given dilaudid which cause some respiratory depression. He was given 5 mg of cyclobenzaprine continue to have pain sharp shooting. He was given lidocaine IV which he said helped a lot. Upon re-evaluation he said that he could have ibuprofen it just does not work typically so he was given Toradol prior to discharge. He clinically has sciatic pain with pain radiating down his right leg. He has a good strong peripheral pulse 0 likely to be of peripheral vascular disease. Position definitely makes it better or worse. Discharge Plan Departure Patient Disposition: Home Clinical Impression: Acute back pain with sciatica Qualifiers: Laterality: right Qualified Code(s): M54.41 - Lumbago with sciatica, right side Instructions: DI for Back Pain With Sciatica Activity Restrictions/Additional Instructions: *You have been diagnosed with back pain with sciatica *What to do: Increase activity as tolerated. You may require physical therapy. You may try a chiropractor manipulation. *Continue to take medications as directed [place] 1 tablet every 6 hours if needed for severe pain Flexeril 5-10 mg every 8 hours if needed for muscle spasm Ibuprofen 600 mg every 6 hours if needed for xray-lt-[id number] pain *Follow up with your primary care provider in 2-3 days *Return to ER if you should have increasing pain, weakness, changes in bowel or bladder habits ill loss of urine or any new, worsening or concerning symptoms CONTROLLED SUBSTANCE DISCHARGE (Narcotoic/benzodiazepine/Flexeril/Phenergan) 1. You have been prescribed narcotic medications, it does have acetaminophen/Tylenol/paracetamol in it, DO NOT TAKE MORE THAN 4,00mg in 24 hours of Tylenol. TRAMADOL DOES NOT CONTAIN TYLENOL 2. Please understand that we cannot provide further refills of narcotics, benzodiazepines or controlled substances through the ED and her pain management will need to be through your provider. 3. While on these medications you cannot drive or operate heavy machinery. 4. You cannot sign legal documents or perform any duties such as this. 5. As long as you're taking opiate pain medications he should also be taking a stool softener such as Colace, Dulcolax, MiraLAX or prune juice, to help avoid constipation. Prescriptions: No Action polyethylene glycol 3350 [Miralax] 119 GM powder 17 gm PO QDAYP Qty: 0 RF: 0 diclofenac sodium [Voltaren] 1 % gel 1 tj Topical Q4H MDD 16 G (4 doses) PRN (Reason: osteoarthritis) Qty: 0 RF: 0 sildenafil [Viagra] 100 MG tablet 100 mg PO PRN MDD 100 mg PRN (Reason: Sexual Activity) Qty: 0 RF: 0 allopurinol 300 MG tablet 300 mg PO DAILY Qty: 0 RF: 0 doxazosin [Cardura] 8 MG tablet 8 mg PO BEDTIME Qty: 0 RF: 0 amlodipine 10 mg tablet 10 mg PO DAILY RF: 0 atorvastatin [Lipitor] 40 mg tablet 40 mg PO BEDTIME RF: 0 bumetanide 2 mg tablet 6 mg PO BID RF: 0 tolterodine [Detrol LA] 4 mg capsule,extended release 24hr 4 mg PO DAILY RF: 0 fexofenadine [Aller-ease] 180 mg tablet 180 mg PO DAILY RF: 0 spironolactone 25 mg tablet 12.5 mg PO BID RF: 0 losartan 100 mg tablet 100 mg PO DAILY RF: 0 cholecalciferol (vitamin D3) 1,000 unit capsule 2,000 unit PO DAILY RF: 0 PreviDent 5000 Plus 1.1 % cream 1 applic dental DIRECTED RF: 0 Dexilant 60 mg capsule,biphase delayed releas 60 mg PO DAILY RF: 0 insulin aspart U-100 100 unit/mL Solution See Rx Instructions .ROUTE .COMPLEX RF: 0 vitamin B complex Tablet 1 tab PO DAILY RF: 0 capsaicin 0.025 % cream 1 applic topical PRN PRN (Reason: pain) RF: 0 lisinopril 5 mg Tablet 5 mg PO DAILY RF: 0 Lyrica 75 mg capsule 75 mg PO BID RF: 0 carboxymethylcell-glycerin(PF) 0.5-0.9 % [place] 1 applic ophthalmic (eye) QID RF: 0 glimepiride 4 mg Tablet 4 mg PO BID RF: 0 multivitamin with minerals Capsule 1 cap PO DAILY RF: 0 artificial saliva (cmce-lytes) [place] With Pump 1 spray PO PRN PRN (Reason: Dry Mouth) RF: 0 ipratropium-albuterol 0.5 mg-3 mg(2.5 mg base)/3 mL Solution For Nebulization 1 ea inhalation DIRECTED RF: 0 insulin glargine 100 unit/mL Solution 70 unit SUBCUT BEDTIME RF: 0 sennosides-docusate sodium 8.6-50 mg Tablet 1 tab PO DAILY RF: 0 chlorhexidine gluconate 4 % Liquid 1 applic TOPICAL DAILY RF: 0 chlorhexidine gluconate 0.12 % Mouthwash 15 ml MUCOUS MEMBRANE BID RF: 0 flaxseed oil 2 cap PO DAILY RF: 0 cyclobenzaprine 10 mg tablet 10 mg PO TID PRN (Reason: muscle spasm) Qty: 30 RF: 0 tramadol 50 mg tablet 50 mg PO Q8H PRN (Reason: pain) Qty: 7 RF: 0 lidocaine 5 % adhesive patch,medicated 1 patch topical DAILY PRN (Reason: pain) Qty: 15 RF: 0 tramadol 50 mg tablet 50 mg PO TID PRN (Reason: pain) Qty: 10 RF: 0 Referrals: Luis Collier MD [Primary Care Provider] -
[2021-02-01] MEDS: ONDANSETRON 4 MG/2 ML INJ IV (23:59)
[2021-02-02] MEDS: HYDROMORPHONE 0.5 MG INJ IV
[2021-02-02 00:05] VITALS: RESP 20; O2SAT 82
[2021-02-02 00:07] VITALS: O2SAT 94
[2021-02-02 00:16] VITALS: BP 158/71; PULSE 74; RESP 17; O2SAT 91
[2021-02-02] MEDS: ACETAMINOPHEN 325 MG TABLET 975 MG PO (00:21)
[2021-02-02] MEDS: CYCLOBENZAPRINE 10 MG TABLET PO (00:23)
[2021-02-02 00:25] LABS: Add Manual Diff / Slide Review NO; Basophils Absolute Auto 0 /uL (0-100); Basophils Percent Auto 0.8 % (0-2); Eosinophils Absolute Auto 200 /uL (0-450); Eosinophils Percent Auto 3.7 % (2-4); Hematocrit 41.4 % (41-53); Hemoglobin 13.9 g/dL (13.5-17.5); Lymphocytes Absolute Auto 1300 /uL (1100-4500); Lymphocytes Percent Auto 31.7 % (25-40); Mean Corpuscular HGB Conc 33.5 % (30-36); Mean Corpuscular Hemoglobin 28.9 PG (26-34); Mean Corpuscular Volume 86.4 fL (80-100); Monocytes Absolute Auto 500 /uL (0-900); Monocytes Percent Auto 12.1 % (3-14); Neutrophils Absolute Auto 2100 /uL (1500-7000); Neutrophils Percent Auto 51.7 % (50-75); Platelet Count 178 X10^3/uL (150-400); Red Cell Distribution Width 14.4 % (11.6-14.8); White Blood Cell Count 4.1 X10^3/uL (4.5-11.0)
[2021-02-02 00:26] LABS: Alanine Aminotransferase 24 IU/L (<50); Albumin 4.3 g/dL (3.5-5.0); Albumin Globulin Ratio 1.7 (1.0-2.8); Alkaline Phosphatase 87 U/L (38-126); Aspartate Aminotransferase 26 IU/L (17-59); BUN Creatinine Ratio 18.3 (6-22); Bilirubin Total 0.3 mg/dL (0.2-1.3); Blood Urea Nitrogen 31 mg/dL (9-20); Calcium 9.6 mg/dL (8.4-10.2); Carbon Dioxide 29 mmol/L (22-32); Chloride 100 mmol/L (98-107); Creatine Kinase 136 U/L (55-170); Estimated Glomerular Filt Rate 40.6 mL/min (>60); Globulin 2.6 g/dL (1.7-4.1); Glucose 216 mg/dL (80-110); HEMOLYSIS < 15 (0-50); Lipase 304 U/L (23-300); Potassium 4.2 mmol/L (3.4-5.1); Sodium 139 mmol/L (137-145); Total Protein 6.9 g/dL (6.3-8.2)
[2021-02-02 00:38] LABS: Troponin I 0.058 ng/mL (0.01-0.034)
[2021-02-02 00:41] LABS: CKMB % Relative Index 0.7 % (1.5-5.0); Creatine Kinase MB 1.01 ng/mL (<2.37)
[2021-02-02] MEDS: SODIUM CHLORIDE 0.9% IV (01:20)
[2021-02-02] MEDS: LIDOCAINE 2% IV (01:20)
[2021-02-02 01:23] VITALS: BP 159/74; PULSE 72; RESP 18; O2SAT 94
[2021-02-02 01:30] VITALS: BP 152/69; PULSE 69; RESP 16; O2SAT 96
[2021-02-02] MEDS: CYCLOBENZAPRINE 10 MG PREPACK 1 BOTTLE MISC (01:48)
[2021-02-02] MEDS: HYDROCODONE/ACET 5/325 PREPACK 1 BOTTLE MISC (01:48)
[2021-02-02] MEDS: KETOROLAC 30 MG/ML VIAL 15 MG IV (01:48)
== END 2021-02-02 01:54 | disposition home or self-care (01) ==
PROVIDERS: Emergency Provider Emergency Medicine; PCP Student in an Organized Health Care Education/Training Program
DX: M54.41 Lumbago with sciatica, right side (principal); R11.2 Nausea with vomiting, unspecified
CPT/HCPCS: 36415; 80053; 82550; 82553; 83690; 84484; 85025; 93005; 96374; 96375; 99285; J1170; J1885; J2405

== ENCOUNTER 2021-10-31 12:59 | Emergency (ER) | payer OTHER, SELFPAY ==
[2021-10-31 13:12] VITALS: BP 156/70; PULSE 76; RESP 18; TEMP 36.7; O2SAT 98; BMI 36.8
--- NOTE | 2021-10-31 13:39 | ED.HA ---
HPI - Headache <Donya Cardenas [employer] - Last Filed: 10/31/21 20:19> General Chief Complaint: Headache Stated Complaint: Radiating pain from neck to top of head-rt side Time Seen by Provider: 10/31/21 13:38 Mode of arrival: Ambulatory History of Present Illness HPI Narrative: 71-year-old male with multiple medical problems including hypertension, diabetes, CHF, renal disease and a TIA last year presents to the emergency department complaining of right neck pain for the last 3 weeks which has been radiating and throbbing and burning up to his head on the right side. Patient states he has tried heat, oxycodone, and sleep which has not improved his symptoms. He now endorses pain into his right arm which is brand new and this started when he got here today. He states he is concerned about a stroke because he had a TIA last urine had to call 911. Patient is a nonsmoker, denies any fever, denies any eye pain or vision changes, denies dizziness, shortness of breath, chest pain, difficulty breathing, wheezing, recent illness, nausea vomiting, or diarrhea. Patient states his neck pain was worsening and started burning approximately 1 week ago after he saw his primary care provider in 1 to a chiropractor. Patient denies any weakness of any extremity, numbness or tingling, swelling or headache. Patient denies any recent trauma. Patient now states that he is concerned about a tumor and a stroke but denies any change of his symptoms over the last 2 weeks. Endorses his pain starts in his right shoulder and travels up into his parietal head on the right. Related Data Home Medications Medication Instructions Recorded Confirmed polyethylene glycol 3350 17 17 gm PO QDAYP #0 04/30/13 05/23/19 gram/dose oral powder (Miralax) allopurinol 300 mg tablet 300 mg PO DAILY #0 04/16/17 05/23/19 diclofenac sodium 1 % topical gel 1 tj TOPICAL Q4H PRN #0 MDD 16 G 04/16/17 05/23/19 (Voltaren) (4 doses) doxazosin 8 mg tablet (Cardura) 8 mg PO BEDTIME #0 04/16/17 05/23/19 sildenafil 100 mg tablet (Viagra) 100 mg PO PRN PRN #0 MDD 100 mg 04/16/17 03/24/19 amlodipine 10 mg tablet 10 mg PO DAILY 03/24/19 05/23/19 artificial 1 spray PO PRN PRN 03/24/19 05/23/19 saliva(carboxymethylcellulose-electrolytes) spray pump atorvastatin 40 mg tablet 40 mg PO BEDTIME 03/24/19 05/23/19 bumetanide 2 mg tablet 6 mg PO BID 03/24/19 05/23/19 capsaicin 0.025 % topical cream 1 applic TOPICAL PRN PRN 03/24/19 05/23/19 carboxymethylcellulose 0.5 1 applic OPHTHALMIC (EYE) QID 03/24/19 05/23/19 %-glycerin 0.9 % (PF) eye drops,dropperette cholecalciferol (vitamin D3) 25 2,000 unit PO DAILY 03/24/19 05/23/19 mcg (1,000 unit) capsule dexlansoprazole 60 mg 60 mg PO DAILY 03/24/19 05/23/19 capsule,biphase delayed release fexofenadine 180 mg tablet 180 mg PO DAILY 03/24/19 05/23/19 fluoride (sodium) 1.1 % dental 1 applic DENTAL DIRECTED 03/24/19 03/24/19 cream glimepiride 4 mg tablet 4 mg PO BID 03/24/19 05/23/19 insulin aspart U-100 100 unit/mL See Rx Instructions .ROUTE .COMPLEX 03/24/19 05/23/19 subcutaneous solution lisinopril 5 mg tablet 5 mg PO DAILY 03/24/19 05/23/19 losartan 100 mg tablet 100 mg PO DAILY 03/24/19 05/23/19 multivitamin with minerals 1 cap PO DAILY 03/24/19 05/23/19 pregabalin 75 mg capsule 75 mg PO BID 03/24/19 03/24/19 spironolactone 25 mg tablet 12.5 mg PO BID 03/24/19 05/23/19 tolterodine 4 mg capsule,extended 4 mg PO DAILY 03/24/19 05/23/19 release 24 hr vitamin B complex 1 tab PO DAILY 03/24/19 05/23/19 chlorhexidine gluconate 0.12 % 15 ml MUCOUS MEMBRANE BID 05/23/19 05/23/19 mouthwash chlorhexidine gluconate 4 % 1 applic TOPICAL DAILY 05/23/19 05/23/19 topical liquid flaxseed oil 2 cap PO DAILY 05/23/19 05/23/19 insulin glargine 100 unit/mL 70 unit SUBCUT BEDTIME 05/23/19 05/23/19 subcutaneous solution ipratropium 0.5 mg-albuterol 3 mg 1 ea INHALATION DIRECTED 05/23/19 05/23/19 (2.5 mg base)/3 mL nebulization soln sennosides 8.6 mg-docusate sodium 1 tab PO DAILY 05/23/19 05/23/19 50 mg tablet Previous Rx's Medication Instructions Recorded cyclobenzaprine 10 mg tablet 10 mg PO TID PRN #30 tab 05/23/19 tramadol 50 mg tablet 50 mg PO Q8H PRN #7 tab 05/23/19 lidocaine 5 % topical patch 1 patch TOPICAL DAILY PRN #15 ea 10/21/20 tramadol 50 mg tablet 50 mg PO TID PRN #10 tab 10/21/20 hydrocodone 5 mg-acetaminophen 325 1 tab PO BID PRN #10 tab 10/31/21 mg tablet lidocaine 4 % topical patch 1 patch TOPICAL DAILY PRN #15 ea 10/31/21 methocarbamol 500 mg tablet 500 mg PO TID PRN #20 tab 10/31/21 Allergies Allergy/AdvReac Type Severity Reaction Status Date / Time No Allergy Information Allergy Verified 10/31/21 13:56 Available Review of Systems <ARTEM Vieira - Last Filed: 10/31/21 20:19> Review of Systems Narrative: General: denies fever, chills, malaise, sweats, fatigue Head/Neck: Endorses throbbing headache on right without dizziness, complains of right trapezius tenderness up into right neck. Eyes: denies visual changes, eye pain Cardio: denies chest pain, palpitations, edema Respiratory: denies dyspnea, cough, orthopnea GI: denies abdominal pain, nausea, vomiting, or diarrhea : denies dysuria, hematuria, urinary retention, frequency or incontinence MSK: denies joint pain, muscle weakness Skin: denies rash, itching, skin lesions or other Neuro: denies numbness, tingling Patient History <ARTEM Vieira - Last Filed: 10/31/21 20:19> Medical History Constipation GERD (gastroesophageal reflux disease) Heart failure HTN (hypertension) Hypercholesteremia Knee pain Renal disease Social History marital status: lives independently: Yes Smoking Status: Former smoker Smoking Status: Former smoker tobacco type: cigarettes alcohol intake frequency: 0-2 drinks per day Substance Use Type: does not use Exam <ARTEM Vieira - Last Filed: 10/31/21 20:19> Narrative Exam Narrative: Independently reviewed vitals signs and nursing notes. General: Awake, alert, well-nourished and developed, nontoxic, no cardiorespiratory distress Head/Neck: Atraumatic, neck full range of motion, trachea midline, no JVD or lymphadenopathy. Supple, nontender, no meningeal signs. Eyes: Pupils equal round and reactive, EOMI, conjunctiva normal, no scleral icterus or injections Nose: nares patent, no rhinorrhea, without purulent drainage or septal hematoma. Mouth/Throat: uvula midline, moist mucus membranes, posterior pharynx normal, no oral lesions, airway patent Cardio: Regular rate and rhythm, no peripheral edema Respiratory: respirations unlabored without wheezing, stridor, or rales. No retractions. GI: Abdomen soft, nontender, nondistended, no hepato-spenomegaly MSK: Moves all extremities, neurovascularly intact, no flank tenderness, right trapezius is tense with tenderness to palpation. No tenderness over cervical spine, no signs of temporal arteritis, facial movements are symmetrical, no warm hot tender vessels on right face, no visible trauma, no right lymphadenopathy or decreased range of motion, muscle tension right trapezius Skin: Normal capillary refill, no rash Neuro: Normal speech and cognition, normal gait, A&O x3 Initial Vital Signs Initial Vital Signs: Vital Signs Temperature 98.1 F 10/31/21 13:12 Pulse Rate 76 10/31/21 13:12 Respiratory Rate 18 10/31/21 13:12 Blood Pressure 156/70 H 10/31/21 13:12 Pulse Oximetry 98 10/31/21 13:12 <Shaji Dunn DO - Last Filed: 11/05/21 07:00> Initial Vital Signs Initial Vital Signs: Vital Signs Temperature 98.1 F 10/31/21 13:12 Pulse Rate 76 10/31/21 13:12 Respiratory Rate 18 10/31/21 13:12 Blood Pressure 156/70 H 10/31/21 13:12 Pulse Oximetry 98 10/31/21 13:12 Course <ARTEM Vieira - Last Filed: 10/31/21 20:19> Orders Ordered: Discontinued Medications Acetaminophen (Acetaminophen 325 Mg Tablet) 975 mg PO NOW ONE Stop: 10/31/21 15:38 Last Admin: 10/31/21 15:55 Dose: 975 mg Documented by: DEBBIE Methocarbamol (Methocarbamol 500 Mg Tablet) 500 mg PO NOW ONE Stop: 10/31/21 15:38 Last Admin: 10/31/21 15:55 Dose: 500 mg Documented by: DEBBIE Vital Signs Vital signs: Vital Signs - 8 hr 10/31/21 13:12 10/31/21 14:15 10/31/21 17:04 Temperature 98.1 F Pulse Rate 76 73 70 Respiratory Rate 18 18 18 Blood Pressure 156/70 H 143/67 H 130/60 Pulse Oximetry 98 98 99 <Shaji Dunn DO - Last Filed: 11/05/21 07:00> Orders Ordered: Discontinued Medications Acetaminophen (Acetaminophen 325 Mg Tablet) 975 mg PO NOW ONE Stop: 10/31/21 15:38 Last Admin: 10/31/21 15:55 Dose: 975 mg Documented by: DEBBIE Methocarbamol (Methocarbamol 500 Mg Tablet) 500 mg PO NOW ONE Stop: 10/31/21 15:38 Last Admin: 10/31/21 15:55 Dose: 500 mg Documented by: DEBBIE Vital Signs Vital signs: Vital Signs - 8 hr 10/31/21 13:12 10/31/21 14:15 10/31/21 17:04 Temperature 98.1 F Pulse Rate 76 73 70 Respiratory Rate 18 18 18 Blood Pressure 156/70 H 143/67 H 130/60 Pulse Oximetry 98 98 99 MDM - Headache <ARTEM Vieira - Last Filed: 10/31/21 20:19> Lab Data Result diagrams: 10/31/21 14:11 10/31/21 14:11 Labs: Lab Results 10/31/21 10/31/21 10/31/21 Range/Units 13:59 14:11 14:11 WBC 3.3 L (4.5-11.0) X10^3/uL RBC 4.14 L (4.5-5.9) X10^6/uL Hgb 12.3 L (13.5-17.5) g/dL Hct 36.5 L (41-53) % MCV 88.1 (80-100) fL MCH 29.8 (26-34) PG MCHC 33.8 (30-36) % RDW 15.0 H (11.6-14.8) % Plt Count 152 (150-400) X10^3/uL Neut % (Auto) 49.2 L (50-75) % Lymph % (Auto) 36.1 (25-40) % Campbell % (Auto) 10.3 (3-14) % Eos % (Auto) 3.2 (2-4) % Baso % (Auto) 1.2 (0-2) % Neut # (Auto) 1600 (0592-3906) /uL Lymph # (Auto) 1200 (6704-9715) /uL Campbell # (Auto) 300 (0-900) /uL Eos # (Auto) 100 (0-450) /uL Baso # (Auto) 0 (0-100) /uL ESR 30 H (0-15) MM/HR PT 11.8 (10.1-12.7) SECONDS INR 1.1 (0.9-1.3) APTT 33 (26.4-36.2) SECONDS Sodium (137-145) mmol/L Potassium (3.4-5.1) mmol/L Chloride (98-107) mmol/L Carbon Dioxide (22-32) mmol/L BUN (9-20) mg/dL Creatinine (0.66-1.25) mg/dL Estimated GFR (>60) mL/min BUN/Creatinine Ratio (6-22) Glucose (80-110) mg/dL Calcium (8.4-10.2) mg/dL Total Bilirubin (0.2-1.3) mg/dL AST (17-59) IU/L ALT (<50) IU/L Alkaline Phosphatase (38-126) U/L Total Creatine Kinase (55-170) U/L CK-MB (CK-2) (<2.37) ng/mL CK-MB (CK-2) Rel Index (1.5-5.0) % Troponin I (0.01-0.034) ng/mL C-Reactive Protein (<1.0) mg/dL NT-Pro-B Natriuret Pep (<125) pg/mL Total Protein (6.3-8.2) g/dL Albumin (3.5-5.0) g/dL Globulin (1.7-4.1) g/dL Albumin/Globulin Ratio (1.0-2.8) Lipase (23-300) U/L TSH (0.47-4.68) uIU/mL 10/31/21 10/31/21 10/31/21 Range/Units 14:11 14:11 14:11 WBC (4.5-11.0) X10^3/uL RBC (4.5-5.9) X10^6/uL Hgb (13.5-17.5) g/dL Hct (41-53) % MCV (80-100) fL MCH (26-34) PG MCHC (30-36) % RDW (11.6-14.8) % Plt Count (150-400) X10^3/uL Neut % (Auto) (50-75) % Lymph % (Auto) (25-40) % Campbell % (Auto) (3-14) % Eos % (Auto) (2-4) % Baso % (Auto) (0-2) % Neut # (Auto) (5533-6875) /uL Lymph # (Auto) (6082-5152) /uL Campbell # (Auto) (0-900) /uL Eos # (Auto) (0-450) /uL Baso # (Auto) (0-100) /uL ESR (0-15) MM/HR PT (10.1-12.7) SECONDS INR (0.9-1.3) APTT (26.4-36.2) SECONDS Sodium 140 (137-145) mmol/L Potassium 3.8 (3.4-5.1) mmol/L Chloride 100 (98-107) mmol/L Carbon Dioxide 32 (22-32) mmol/L BUN 30 H (9-20) mg/dL Creatinine 1.75 H (0.66-1.25) mg/dL Estimated GFR 38.8 L (>60) mL/min BUN/Creatinine Ratio 17.1 (6-22) Glucose 155 H (80-110) mg/dL Calcium 9.6 (8.4-10.2) mg/dL Total Bilirubin 0.4 (0.2-1.3) mg/dL AST 27 (17-59) IU/L ALT 24 (<50) IU/L Alkaline Phosphatase 97 (38-126) U/L Total Creatine Kinase 108 Cancelled (55-170) U/L CK-MB (CK-2) 0.73 Cancelled (<2.37) ng/mL CK-MB (CK-2) Rel Index 0.7 L Cancelled (1.5-5.0) % Troponin I 0.027 Cancelled (0.01-0.034) ng/mL C-Reactive Protein < 0.5 Cancelled (<1.0) mg/dL NT-Pro-B Natriuret Pep (<125) pg/mL Total Protein 7.4 (6.3-8.2) g/dL Albumin 4.4 (3.5-5.0) g/dL Globulin 3.0 (1.7-4.1) g/dL Albumin/Globulin Ratio 1.5 (1.0-2.8) Lipase (23-300) U/L TSH 0.838 (0.47-4.68) uIU/mL 10/31/21 Range/Units 15:12 WBC (4.5-11.0) X10^3/uL RBC (4.5-5.9) X10^6/uL Hgb (13.5-17.5) g/dL Hct (41-53) % MCV (80-100) fL MCH (26-34) PG MCHC (30-36) % RDW (11.6-14.8) % Plt Count (150-400) X10^3/uL Neut % (Auto) (50-75) % Lymph % (Auto) (25-40) % Campbell % (Auto) (3-14) % Eos % (Auto) (2-4) % Baso % (Auto) (0-2) % Neut # (Auto) (1792-5455) /uL Lymph # (Auto) (6595-7033) /uL Campbell # (Auto) (0-900) /uL Eos # (Auto) (0-450) /uL Baso # (Auto) (0-100) /uL ESR (0-15) MM/HR PT (10.1-12.7) SECONDS INR (0.9-1.3) APTT (26.4-36.2) SECONDS Sodium (137-145) mmol/L Potassium (3.4-5.1) mmol/L Chloride (98-107) mmol/L Carbon Dioxide (22-32) mmol/L BUN (9-20) mg/dL Creatinine (0.66-1.25) mg/dL Estimated GFR (>60) mL/min BUN/Creatinine Ratio (6-22) Glucose (80-110) mg/dL Calcium (8.4-10.2) mg/dL Total Bilirubin (0.2-1.3) mg/dL AST (17-59) IU/L ALT (<50) IU/L Alkaline Phosphatase (38-126) U/L Total Creatine Kinase (55-170) U/L CK-MB (CK-2) (<2.37) ng/mL CK-MB (CK-2) Rel Index (1.5-5.0) % Troponin I (0.01-0.034) ng/mL C-Reactive Protein (<1.0) mg/dL NT-Pro-B Natriuret Pep 196 H (<125) pg/mL Total Protein (6.3-8.2) g/dL Albumin (3.5-5.0) g/dL Globulin (1.7-4.1) g/dL Albumin/Globulin Ratio (1.0-2.8) Lipase 122 (23-300) U/L TSH (0.47-4.68) uIU/mL Imaging Data CT - cervical spine: Radiologist's Impression: PROCEDURE:? CT SOFT TISSUE NECK WO CON ? INDICATIONS:? burning rt neck pain, s/p cervical lymph node removal 2014 ? TECHNIQUE:? Non-contrast 3.0 mm axial sections acquired from the sella to the aortic arch.? Additional oblique axial 3.0 mm sections acquired through the pharynx.? 3 mm thick coronal and sagittal reformats were generated.? For radiation dose reduction, the following was used:? automated exposure control.? ? COMPARISON:? None. ? FINDINGS:? Image quality:? Excellent.? ? Lymph nodes:? No enlarged lymph nodes seen throughout the neck.? ? Vessels:? Non-opacified vessels appear normal in caliber.? ? Neck spaces:? The oropharynx, nasopharynx, and pharynx demonstrate no mucosal lesions.? The vocal cords, false vocal cords, pyriform sinuses, epiglottis, vallecula, and tongue base all appear normal.? Extramucosal spaces appear unremarkable.? ? A surgical clips noted in the deep spaces of the right neck consistent with prior kiran dissection. ? Glands:? The parotid and submandibular glands appear normal, without stones.? There is a large tear Baez this left thyroid nodule measuring 4.6 x 3.9 x 5.7 cm extending into the superior mediastinum.? Right thyroid gland is atrophic. ? Miscellaneous:? Visualized brain and orbits appear normal.? Lung apices appear clear.? Superficial soft tissues appear normal.? ? Multilevel degenerative disc space narrowing and arthropathy present throughout the cervical spine with moderate central stenosis at C3-4, C5-6 and C6-7.? Interbody fusion without instrumentation noted at C4-5. ? Please note, lack of intravenous contrast limits assessment of the exam, particularly for neoplasm ? IMPRESSION:? ? 1. Large heterogenous left thyroid nodule can be further evaluated by ultrasound ? 2. Prior right lymph node dissection.? ? 3. Multilevel degenerative disc disease and arthropathy with moderate central stenosis at C3-4, C5-6 and C6-7? ? ? Approved by: Juliocesar Arellano M.D. on 10/31/2021 at 15:25? [facility] Narrative Medical decision making narrative: This is a 71-year-old male who presents to the emergency department for 3 weeks of neck pain, he describes it as throbbing and starting in his shoulder. Head to the left, complains of muscle tension in his shoulder. Patient exam overall was unremarkable, no neuro deficits, no sensation changes, no visual deficit, EOMs intact, face expressions symmetrical, patient does not have any chest pain or shortness of breath. Mildly tense right trapezius and right neck musculature. Patient was given Robaxin and Tylenol with moderate relief in his symptoms. Cardiac workup was unremarkable, troponin was negative, EKG showed normal sinus rhythm without ectopy or ST changes. Lab work revealed a creatinine 1.75 above his baseline of 1.7, glucose 155, BNP 196 which is below his last results of 817. Lipase 122. ESR 30. Patient reports concern for tumor and stroke with history of TIA. A noncontrast soft tissue neck and his head was obtained which shows multilevel disc degenerative disc disease and arthropathy with moderate canal stenosis at C3-4 C5-6 and C6-7. A large heterogeneous left thyroid nodule and TSH was 0.83. Head CT shows no acute intracranial finding. Differential Includes temporal arteritis, vascular dissection, Subarachnoid hemorrhage, but unlikely as patient denies sudden onset of pain, not worst of life and no trauma. Meningitis considered, but thought unlikely given lack of Brudzinski's, Kernig's sign, altered mental status or fever.Giant cell arteritis considered, but thought unlikely given lack of unilateral findings, pain in uatsdin, vision change HTN Emergency considered, but thought unlikely given normal vitals.Other serious diagnoses considered unlikely given lack of red flag findings such as sudden onset, increasing frequency, immunocompromise, systemic signs (fever, chills, stiff neck, or rash), focal neurologic findings, trauma, blood thinners, etc. <Sahji Dunn, DO - Last Filed: 11/05/21 07:00> Lab Data Labs: Lab Results 10/31/21 10/31/21 10/31/21 Range/Units 13:59 14:11 14:11 WBC 3.3 L (4.5-11.0) X10^3/uL RBC 4.14 L (4.5-5.9) X10^6/uL Hgb 12.3 L (13.5-17.5) g/dL Hct 36.5 L (41-53) % MCV 88.1 (80-100) fL MCH 29.8 (26-34) PG MCHC 33.8 (30-36) % RDW 15.0 H (11.6-14.8) % Plt Count 152 (150-400) X10^3/uL Neut % (Auto) 49.2 L (50-75) % Lymph % (Auto) 36.1 (25-40) % Campbell % (Auto) 10.3 (3-14) % Eos % (Auto) 3.2 (2-4) % Baso % (Auto) 1.2 (0-2) % Neut # (Auto) 1600 (6515-5914) /uL Lymph # (Auto) 1200 (5459-7672) /uL Campbell # (Auto) 300 (0-900) /uL Eos # (Auto) 100 (0-450) /uL Baso # (Auto) 0 (0-100) /uL ESR 30 H (0-15) MM/HR PT 11.8 (10.1-12.7) SECONDS INR 1.1 (0.9-1.3) APTT 33 (26.4-36.2) SECONDS Sodium (137-145) mmol/L Potassium (3.4-5.1) mmol/L Chloride (98-107) mmol/L Carbon Dioxide (22-32) mmol/L BUN (9-20) mg/dL Creatinine (0.66-1.25) mg/dL Estimated GFR (>60) mL/min BUN/Creatinine Ratio (6-22) Glucose (80-110) mg/dL Calcium (8.4-10.2) mg/dL Total Bilirubin (0.2-1.3) mg/dL AST (17-59) IU/L ALT (<50) IU/L Alkaline Phosphatase (38-126) U/L Total Creatine Kinase (55-170) U/L CK-MB (CK-2) (<2.37) ng/mL CK-MB (CK-2) Rel Index (1.5-5.0) % Troponin I (0.01-0.034) ng/mL C-Reactive Protein (<1.0) mg/dL NT-Pro-B Natriuret Pep (<125) pg/mL Total Protein (6.3-8.2) g/dL Albumin (3.5-5.0) g/dL Globulin (1.7-4.1) g/dL Albumin/Globulin Ratio (1.0-2.8) Lipase (23-300) U/L TSH (0.47-4.68) uIU/mL 10/31/21 10/31/21 10/31/21 Range/Units 14:11 14:11 14:11 WBC (4.5-11.0) X10^3/uL RBC (4.5-5.9) X10^6/uL Hgb (13.5-17.5) g/dL Hct (41-53) % MCV (80-100) fL MCH (26-34) PG MCHC (30-36) % RDW (11.6-14.8) % Plt Count (150-400) X10^3/uL Neut % (Auto) (50-75) % Lymph % (Auto) (25-40) % Campbell % (Auto) (3-14) % Eos % (Auto) (2-4) % Baso % (Auto) (0-2) % Neut # (Auto) (8913-0808) /uL Lymph # (Auto) (4669-3267) /uL Campbell # (Auto) (0-900) /uL Eos # (Auto) (0-450) /uL Baso # (Auto) (0-100) /uL ESR (0-15) MM/HR PT (10.1-12.7) SECONDS INR (0.9-1.3) APTT (26.4-36.2) SECONDS Sodium 140 (137-145) mmol/L Potassium 3.8 (3.4-5.1) mmol/L Chloride 100 (98-107) mmol/L Carbon Dioxide 32 (22-32) mmol/L BUN 30 H (9-20) mg/dL Creatinine 1.75 H (0.66-1.25) mg/dL Estimated GFR 38.8 L (>60) mL/min BUN/Creatinine Ratio 17.1 (6-22) Glucose 155 H (80-110) mg/dL Calcium 9.6 (8.4-10.2) mg/dL Total Bilirubin 0.4 (0.2-1.3) mg/dL AST 27 (17-59) IU/L ALT 24 (<50) IU/L Alkaline Phosphatase 97 (38-126) U/L Total Creatine Kinase 108 Cancelled (55-170) U/L CK-MB (CK-2) 0.73 Cancelled (<2.37) ng/mL CK-MB (CK-2) Rel Index 0.7 L Cancelled (1.5-5.0) % Troponin I 0.027 Cancelled (0.01-0.034) ng/mL C-Reactive Protein < 0.5 Cancelled (<1.0) mg/dL NT-Pro-B Natriuret Pep (<125) pg/mL Total Protein 7.4 (6.3-8.2) g/dL Albumin 4.4 (3.5-5.0) g/dL Globulin 3.0 (1.7-4.1) g/dL Albumin/Globulin Ratio 1.5 (1.0-2.8) Lipase (23-300) U/L TSH 0.838 (0.47-4.68) uIU/mL 10/31/21 Range/Units 15:12 WBC (4.5-11.0) X10^3/uL RBC (4.5-5.9) X10^6/uL Hgb (13.5-17.5) g/dL Hct (41-53) % MCV (80-100) fL MCH (26-34) PG MCHC (30-36) % RDW (11.6-14.8) % Plt Count (150-400) X10^3/uL Neut % (Auto) (50-75) % Lymph % (Auto) (25-40) % Campbell % (Auto) (3-14) % Eos % (Auto) (2-4) % Baso % (Auto) (0-2) % Neut # (Auto) (6030-4648) /uL Lymph # (Auto) (6075-5156) /uL Campbell # (Auto) (0-900) /uL Eos # (Auto) (0-450) /uL Baso # (Auto) (0-100) /uL ESR (0-15) MM/HR PT (10.1-12.7) SECONDS INR (0.9-1.3) APTT (26.4-36.2) SECONDS Sodium (137-145) mmol/L Potassium (3.4-5.1) mmol/L Chloride (98-107) mmol/L Carbon Dioxide (22-32) mmol/L BUN (9-20) mg/dL Creatinine (0.66-1.25) mg/dL Estimated GFR (>60) mL/min BUN/Creatinine Ratio (6-22) Glucose (80-110) mg/dL Calcium (8.4-10.2) mg/dL Total Bilirubin (0.2-1.3) mg/dL AST (17-59) IU/L ALT (<50) IU/L Alkaline Phosphatase (38-126) U/L Total Creatine Kinase (55-170) U/L CK-MB (CK-2) (<2.37) ng/mL CK-MB (CK-2) Rel Index (1.5-5.0) % Troponin I (0.01-0.034) ng/mL C-Reactive Protein (<1.0) mg/dL NT-Pro-B Natriuret Pep 196 H (<125) pg/mL Total Protein (6.3-8.2) g/dL Albumin (3.5-5.0) g/dL Globulin (1.7-4.1) g/dL Albumin/Globulin Ratio (1.0-2.8) Lipase 122 (23-300) U/L TSH (0.47-4.68) uIU/mL Discharge Plan Departure Patient Disposition: Home Clinical Impression: Strain of cervical portion of right trapezius muscle, Cervical stenosis of spinal canal, Single thyroid nodule Degenerative disk disease Qualifiers: Spinal region: mid-cervical Mid-cervical spinal level: unspecified Qualified Code(s): M50.320 - Other cervical disc degeneration, mid-cervical region, unspecified level Instructions: DI for Neck Sprain, DI for Neck Pain Activity Restrictions/Additional Instructions: *You have been diagnosed with a strain your right neck and trapezius. Please continue to use heat packs at least twice a day, and Tylenol as needed for pain. You may use a muscle relaxer if this is throbbing, and you can try a pain pill to see if that helps as well. If you have any vision changes, altered mental status, or weakness please return to the emergency department for another evaluation. You have central canal stenosis and degenerative disc disease of your cervical vertebrae. Please follow-up with orthopedics, and especially if you have any weakness or numbness tingling in your extremities. *What to do: *Please continue to take your regular medications as directed. [ x] New medication prescriptions sent to your pharmacy: [ [facility]] [ ] New medication written as a paper prescription [ ] No new medications given *Please follow up with your primary care provider in 2-3 days, call for an appointment. Let them know you were seen in the Emergency Department and that we ask that you be seen in follow up. We will electronically transmit a record of today's note if your PCP is in our system *If you do not have a primary care provider please contact the [facility] Resource line at [phone]. They will ask some questions about your medical history and help get you set up with a doctor in the community. *Return to Emergency Department if you should have any new, worsening or concerning symptoms, such as [fever greater than 101F, chills, worsening pain, persistent vomiting or other bothersome symptoms] Prescriptions: New lidocaine 4 % adhesive patch,medicated 1 patch topical DAILY PRN (Reason: pain) Qty: 15 0RF methocarbamol 500 mg tablet 500 mg PO TID PRN (Reason: muscle spasm) Qty: 20 0RF hydrocodone-acetaminophen 5-325 mg tablet 1 tab PO BID PRN (Reason: pain) Qty: 10 0RF No Action polyethylene glycol 3350 [Miralax] 119 GM powder 17 gm PO QDAYP Qty: 0 0RF diclofenac sodium [Voltaren] 1 % gel 1 tj Topical Q4H MDD 16 G (4 doses) PRN (Reason: osteoarthritis) Qty: 0 0RF sildenafil [Viagra] 100 MG tablet 100 mg PO PRN MDD 100 mg PRN (Reason: Sexual Activity) Qty: 0 0RF allopurinol 300 MG tablet 300 mg PO DAILY Qty: 0 0RF doxazosin [Cardura] 8 MG tablet 8 mg PO BEDTIME Qty: 0 0RF amlodipine 10 mg tablet 10 mg PO DAILY 0RF Rx Instructions: hold for less than 140/90 atorvastatin [Lipitor] 40 mg tablet 40 mg PO BEDTIME 0RF bumetanide 2 mg tablet 6 mg PO BID 0RF tolterodine [Detrol LA] 4 mg capsule,extended release 24hr 4 mg PO DAILY 0RF fexofenadine [Aller-ease] 180 mg tablet 180 mg PO DAILY 0RF spironolactone 25 mg tablet 12.5 mg PO BID 0RF losartan 100 mg tablet 100 mg PO DAILY 0RF cholecalciferol (vitamin D3) 1,000 unit capsule 2,000 unit PO DAILY 0RF PreviDent 5000 Plus 1.1 % cream 1 applic dental DIRECTED 0RF Dexilant 60 mg capsule,biphase delayed releas 60 mg PO DAILY 0RF insulin aspart U-100 100 unit/mL Solution See Rx Instructions .ROUTE .COMPLEX 0RF Rx Instructions: 1 dose subcutaneously ;30 ac breakfast, 34 at noon, 30 at bedtime. vitamin B complex Tablet 1 tab PO DAILY 0RF capsaicin 0.025 % cream 1 applic topical PRN PRN (Reason: pain) 0RF lisinopril 5 mg Tablet 5 mg PO DAILY 0RF Lyrica 75 mg capsule 75 mg PO BID 0RF carboxymethylcell-glycerin(PF) 0.5-0.9 % Dropperette 1 applic ophthalmic (eye) QID 0RF glimepiride 4 mg Tablet 4 mg PO BID 0RF multivitamin with minerals Capsule 1 cap PO DAILY 0RF artificial saliva (cmce-lytes) [place] With Pump 1 spray PO PRN PRN (Reason: Dry Mouth) 0RF ipratropium-albuterol 0.5 mg-3 mg(2.5 mg base)/3 mL Solution For Nebulization 1 ea inhalation DIRECTED 0RF insulin glargine 100 unit/mL Solution 70 unit SUBCUT BEDTIME 0RF sennosides-docusate sodium 8.6-50 mg Tablet 1 tab PO DAILY 0RF chlorhexidine gluconate 4 % Liquid 1 applic TOPICAL DAILY 0RF Rx Instructions: to bumps on back of head chlorhexidine gluconate 0.12 % Mouthwash 15 ml MUCOUS MEMBRANE BID 0RF Rx Instructions: swish for 30 seconds and spit. after breakfast and at bedtime. do not eat or drink for at least one hour after use. flaxseed oil 2 cap PO DAILY 0RF cyclobenzaprine 10 mg tablet 10 mg PO TID PRN (Reason: muscle spasm) Qty: 30 0RF tramadol 50 mg tablet 50 mg PO Q8H PRN (Reason: pain) Qty: 7 0RF lidocaine 5 % adhesive patch,medicated 1 patch topical DAILY PRN (Reason: pain) Qty: 15 0RF Rx Instructions: leave on most painful area for up to 12 hrs tramadol 50 mg tablet 50 mg PO TID PRN (Reason: pain) Qty: 10 0RF Referrals: Luis Collier MD [Primary Care Provider] - Preeti Kruger MD [Physician] - 5-7 days (cervical stenosis w/multilevel DDD and arthropathy) <Shaji Dunn DO - Last Filed: 11/05/21 07:00> Cosign ED Attending Cosignature Attestation: Dr Dunn Co-Sign Statement: I was available for consultation during this patient's emergency department visit. This chart is signed by myself for administrative purposes only. I did not have direct contact with this patient during this visit. They were seen independently by the APC.
[2021-10-31 14:15] VITALS: BP 143/67; PULSE 73; RESP 18; O2SAT 98
[2021-10-31 14:21] LABS: Add Manual Diff / Slide Review NO; Basophils Absolute Auto 0 /uL (0-100); Basophils Percent Auto 1.2 % (0-2); Eosinophils Absolute Auto 100 /uL (0-450); Eosinophils Percent Auto 3.2 % (2-4); Hematocrit 36.5 % (41-53); Hemoglobin 12.3 g/dL (13.5-17.5); Lymphocytes Absolute Auto 1200 /uL (1100-4500); Lymphocytes Percent Auto 36.1 % (25-40); Mean Corpuscular HGB Conc 33.8 % (30-36); Mean Corpuscular Hemoglobin 29.8 PG (26-34); Mean Corpuscular Volume 88.1 fL (80-100); Monocytes Absolute Auto 300 /uL (0-900); Monocytes Percent Auto 10.3 % (3-14); Neutrophils Absolute Auto 1600 /uL (1500-7000); Neutrophils Percent Auto 49.2 % (50-75); Platelet Count 152 X10^3/uL (150-400); Red Blood Cell Count 4.14 X10^6/uL (4.5-5.9); White Blood Cell Count 3.3 X10^3/uL (4.5-11.0)
[2021-10-31 14:31] LABS: INR 1.1 (0.9-1.3); Prothrombin Time 11.8 SECONDS (10.1-12.7)
[2021-10-31 14:34] LABS: PTT Partial Thromboplastin Tim 33 SECONDS (26.4-36.2)
[2021-10-31 14:41] LABS: Alanine Aminotransferase 24 IU/L (<50); Albumin 4.4 g/dL (3.5-5.0); Albumin Globulin Ratio 1.5 (1.0-2.8); Alkaline Phosphatase 97 U/L (38-126); Aspartate Aminotransferase 27 IU/L (17-59); BUN Creatinine Ratio 17.1 (6-22); Bilirubin Total 0.4 mg/dL (0.2-1.3); Blood Urea Nitrogen 30 mg/dL (9-20); C-Reactive Protein Quant < 0.5 mg/dL (<1.0); Calcium 9.6 mg/dL (8.4-10.2); Carbon Dioxide 32 mmol/L (22-32); Chloride 100 mmol/L (98-107); Creatine Kinase 108 U/L (55-170); Estimated Glomerular Filt Rate 38.8 mL/min (>60); Glucose 155 mg/dL (80-110); Potassium 3.8 mmol/L (3.4-5.1); Sodium 140 mmol/L (137-145); Total Protein 7.4 g/dL (6.3-8.2)
[2021-10-31 14:47] LABS: Troponin I 0.027 ng/mL (0.01-0.034)
[2021-10-31 14:47] LABS: Erythrocyte Sedimentation Rate 30 MM/HR (0-15)
[2021-10-31 14:54] LABS: CKMB % Relative Index 0.7 % (1.5-5.0); Creatine Kinase MB 0.73 ng/mL (<2.37); HEMOLYSIS 19 (0-50)
[2021-10-31 15:22] LABS: Lipase 122 U/L (23-300)
[2021-10-31 15:32] LABS: NT-proBNP (BNP-Adult 18+) 196 pg/mL (<125)
--- NOTE | 2021-10-31 15:37 | DI.CT.S_ITS ---
PROCEDURE: CT SOFT TISSUE NECK WO CON INDICATIONS: burning rt neck pain, s/p cervical lymph node removal 2014 TECHNIQUE: Non-contrast 3.0 mm axial sections acquired from the sella to the aortic arch. Additional oblique axial 3.0 mm sections acquired through the pharynx. 3 mm thick coronal and sagittal reformats were generated. For radiation dose reduction, the following was used: automated exposure control. COMPARISON: None. FINDINGS: Image quality: Excellent. Lymph nodes: No enlarged lymph nodes seen throughout the neck. Vessels: Non-opacified vessels appear normal in caliber. Neck spaces: The oropharynx, nasopharynx, and pharynx demonstrate no mucosal lesions. The vocal cords, false vocal cords, pyriform sinuses, epiglottis, vallecula, and tongue base all appear normal. Extramucosal spaces appear unremarkable. A surgical clips noted in the deep spaces of the right neck consistent with prior kiran dissection. Glands: The parotid and submandibular glands appear normal, without stones. There is a large tear Baez this left thyroid nodule measuring 4.6 x 3.9 x 5.7 cm extending into the superior mediastinum. Right thyroid gland is atrophic. Miscellaneous: Visualized brain and orbits appear normal. Lung apices appear clear. Superficial soft tissues appear normal. Multilevel degenerative disc space narrowing and arthropathy present throughout the cervical spine with moderate central stenosis at C3-4, C5-6 and C6-7. Interbody fusion without instrumentation noted at C4-5. Please note, lack of intravenous contrast limits assessment of the exam, particularly for neoplasm IMPRESSION: 1. Large heterogenous left thyroid nodule can be further evaluated by ultrasound 2. Prior right lymph node dissection. 3. Multilevel degenerative disc disease and arthropathy with moderate central stenosis at C3-4, C5-6 and C6-7 Approved by: Juliocesar Arellano M.D. on 10/31/2021 at 15:25
--- NOTE | 2021-10-31 15:37 | DI.CT.S_ITS ---
PROCEDURE: CT HEAD/BRAIN WO CON INDICATIONS: r/o hemorrhage/tumor other TECHNIQUE: Noncontrast 4.5 mm thick angled axial sections acquired from the foramen magnum to the vertex, with coronal and sagittal reformats. For radiation dose reduction, the following was used: automated exposure control, adjustment of mA and/or kV according to patient size. COMPARISON: None. FINDINGS: Image quality: Excellent. CSF spaces: Basal cisterns are patent. No extra-axial fluid collections. The ventricles are symmetric in size and shape. Brain: No intracranial bleeds or masses. There is cerebral volume loss for age, with resultant ventricular and sulcal prominence. There are periventricular and deep white matter chronic small vessel ischemic changes. There is intracranial internal carotid artery atherosclerosis. Skull and face: Calvarium and visualized facial bones appear intact, without suspicious lesions. Sinuses: Visualized sinuses and mastoids are clear. IMPRESSION: No acute intracranial finding. Dictated by: Trey Matos M.D. on 10/31/2021 at 16:18 Approved by: Trey Matos M.D. on 10/31/2021 at 16:19
[2021-10-31] MEDS: methocarbamoL 500 MG TABLET PO (15:55)
[2021-10-31] MEDS: ACETAMINOPHEN 325 MG TABLET 975 MG PO (15:55)
[2021-10-31 17:04] VITALS: BP 130/60; PULSE 70; RESP 18; O2SAT 99
[2021-10-31 17:35] LABS: Thyroid Stimulating Hormone 0.838 uIU/mL (0.47-4.68)
== END 2021-10-31 17:07 | disposition home or self-care (01) ==
PROVIDERS: Emergency Provider Nurse Practitioner Critical Care Medicine; PCP Student in an Organized Health Care Education/Training Program
DX: S16.1XXA Strain of muscle, fascia and tendon at neck level, initial encounter (principal); M48.02 Spinal stenosis, cervical region; E04.1 Nontoxic single thyroid nodule; Z87.891 Personal history of nicotine dependence; X58.XXXA Exposure to other specified factors, initial encounter
CPT/HCPCS: 70450; 70490; 80053; 82550; 82553; 83690; 83880; 84443; 84484; 85025; 85610; 85651; 85730; 86140; 93005; 99284

== ENCOUNTER → 2021-11-29 10:03 | Outpatient (CLI) | payer MEDICARE, OTHER, SELFPAY ==
[2021-11-29 12:34] LABS: COVID19 -Nasal RAPID Negative (Negative)
== END ==
PROVIDERS: PCP Student in an Organized Health Care Education/Training Program; Visit Provider Family Medicine Sleep Medicine
DX: Z20.822 Contact with and (suspected) exposure to COVID-19 (principal)
CPT/HCPCS: 87635; C9803

== ENCOUNTER 2021-12-02 12:38 | Day surgery (SDC) | payer MEDICARE, OTHER, SELFPAY ==
[2021-12-02] VITALS (7 sets, daily range): BP systolic 142–179; BP diastolic 72–90; PULSE 66–78; RESP 15–28; TEMP 36.2–36.8; O2SAT 95–99; BMI 36.0
--- NOTE | 2021-12-02 | PATH_ITS ---
[facility] Accession Number: [id number] . 01 Material submitted: . PART A: cecum - CECUM POLYP PART B: colon - TRANSVERSE COLON POLYP . 02 Diagnosis: A. Cecum Polyp: Tubular adenoma. . B. Transverse Colon Polyp: Tubular adenoma. MRV 12/04/2021 0955 Local . 02 Electronically signed: . Letty Price MD, Pathologist NPI- [id number] . 01 Gross description: . Part A: CECUM POLYP: Received in formalin is 1 fragment(s) of rosado, soft tissue measuring 0.3 x 0.1 x 0.1 cm submitted entirely in 1 cassette(s) Part B: TRANSVERSE COLON POLYP: Received in formalin is 1 fragment(s) of rosado, soft tissue measuring 0.6 x 0.4 x 0.4 cm which is bisected and submitted entirely in 1 cassette(s) /CPE 12/03/2021 1011 Local . 02 Pathologist provided ICD-10: K63.5, K59.00, R14.0 . 02 CPT . 217804, [id number] Specimen Comment: A courtesy copy of this report has been sent to [phone] Performed at: 01 [facility] [address], [place], [place] [id number] MD Torey Jimenez MD Phone: [phone] Performed at: 02 [facility] [address] [place], [place] [id number] MD Donya Madera MD Phone: [phone]
--- NOTE | 2021-12-02 13:47 | SUR.PREOP ---
Told about patients shortness of breath and resp rate of 28 upon getting into bed. He questioned patient who then referred to chest pain/pressure, which he relates to the bowel prep. States that it lasted 2-3 hours this morning and is currently absent. 12-lead EKG per Dr. Sparrow. Patient currently denies chest pain/pressure, SOB, nausea, diaphoresis. Skin warm and dry.
[2021-12-02] MEDS: SODIUM CHLORIDE 0.9% 1,000 ML 84 ML IV (13:54)
--- NOTE | 2021-12-02 13:58 | SUR.PREOP ---
Current and 10/31/21 EKGs shown to LISA Stringer, reported to Dr. Sparrow. Reviewed. Patient resting comfortably.
--- NOTE | 2021-12-02 14:24 | P.HP_ITS ---
History of Present Illness History of Present Illness Date Patient Seen: 12/02/21 Time Patient Seen: 14:24 Chief complaint: SDC Narrative: I reviewed the recent note from Jessica Rader no significant changes. The patient had some symptoms this morning that he believes were related to dehydration and struggles with the bowel prep. We checked an EKG and there were no acute changes. The EKG was consistent with his cardiogram from October showing an incomplete left bundle branch block. Patient wishes to proceed with the procedure today. Patient History Medical History Constipation GERD (gastroesophageal reflux disease) Heart failure HTN (hypertension) Hypercholesteremia Knee pain Renal disease Family & Social History Social History: household members spouse lives independently Yes Tobacco & Substance use: Tobacco type cigarettes Smoking Status Former smoker alcohol intake former alcohol intake frequency 0-2 drinks per day Substance Use Type does not use Meds Home Medications and Allergies Home Medications Medication Instructions Recorded Confirmed Type polyethylene glycol 3350 17 17 gm PO QDAYP #0 04/30/13 12/02/21 History gram/dose oral powder (Miralax) allopurinol 300 mg tablet 300 mg PO DAILY #0 04/16/17 12/02/21 History diclofenac sodium 1 % topical gel 1 tj TOPICAL Q4H PRN #0 MDD 16 G 04/16/17 12/02/21 History (Voltaren) (4 doses) doxazosin 8 mg tablet (Cardura) 8 mg PO BEDTIME #0 04/16/17 12/02/21 History sildenafil 100 mg tablet (Viagra) 100 mg PO PRN PRN #0 MDD 100 mg 04/16/17 12/02/21 History artificial 1 spray PO PRN PRN 03/24/19 12/02/21 History saliva(carboxymethylcellulose-electrolytes) spray pump bumetanide 2 mg tablet 2 mg PO BID 03/24/19 12/02/21 History capsaicin 0.025 % topical cream 1 applic TOPICAL PRN PRN 03/24/19 12/02/21 History carboxymethylcellulose 0.5 1 applic OPHTHALMIC (EYE) QID 03/24/19 12/02/21 History %-glycerin 0.9 % (PF) eye drops,dropperette cholecalciferol (vitamin D3) 25 2,000 unit PO DAILY 03/24/19 12/02/21 History mcg (1,000 unit) capsule dexlansoprazole 60 mg 60 mg PO DAILY 03/24/19 12/02/21 History capsule,biphase delayed release fexofenadine 180 mg tablet 180 mg PO DAILY 03/24/19 12/02/21 History fluoride (sodium) 1.1 % dental 1 applic DENTAL DIRECTED 03/24/19 12/02/21 History cream insulin aspart U-100 100 unit/mL See Rx Instructions .ROUTE .COMPLEX 03/24/19 12/02/21 History subcutaneous solution multivitamin with minerals 1 cap PO DAILY 03/24/19 12/02/21 History pregabalin 75 mg capsule 75 mg PO BID 03/24/19 12/02/21 History spironolactone 25 mg tablet 25 mg PO BID 03/24/19 12/02/21 History tolterodine 4 mg capsule,extended 4 mg PO DAILY 03/24/19 12/02/21 History release 24 hr vitamin B complex 1 tab PO DAILY 03/24/19 12/02/21 History chlorhexidine gluconate 0.12 % 15 ml MUCOUS MEMBRANE BID 05/23/19 12/02/21 History mouthwash chlorhexidine gluconate 4 % 1 applic TOPICAL DAILY 05/23/19 12/02/21 History topical liquid cyclobenzaprine 10 mg tablet 10 mg PO TID PRN #30 tab 05/23/19 12/02/21 Rx insulin glargine 100 unit/mL 70 unit SUBCUT QAM 05/23/19 12/02/21 History subcutaneous solution ipratropium 0.5 mg-albuterol 3 mg 1 ea INHALATION DIRECTED 05/23/19 12/02/21 History (2.5 mg base)/3 mL nebulization soln sennosides 8.6 mg-docusate sodium 2 tab PO DAILY 05/23/19 12/02/21 History 50 mg tablet tramadol 50 mg tablet 50 mg PO Q8H PRN #7 tab 05/23/19 12/02/21 Rx lidocaine 5 % topical patch 1 patch TOPICAL DAILY PRN #15 ea 10/21/20 12/02/21 Rx hydrocodone 5 mg-acetaminophen 325 1 tab PO BID PRN #10 tab 10/31/21 12/02/21 Rx mg tablet methocarbamol 500 mg tablet 500 mg PO TID PRN #20 tab 10/31/21 12/02/21 Rx atorvastatin 20 mg tablet mg 12/02/21 History losartan 25 mg tablet 25 mg PO DAILY 12/02/21 12/02/21 History semaglutide (Ozempic) 1 mg SUBCUT QWEEK 12/02/21 12/02/21 History Allergies Allergy/AdvReac Type Severity Reaction Status Date / Time No Allergy Information Allergy Verified 10/31/21 13:56 Available Review of Systems Review of Systems ROS: Yes All systems reviewed with the patient and are negative except as otherwise documented Exam Vital Signs (past 8 hours): - 12/02/21 12:59 Temperature 97.1 F L Pulse Rate 78 Respiratory Rate 28 H Blood Pressure 179/90 H Pulse Oximetry 97 Oxygen Delivery Method Room Air Const General: cooperative and comfortable Orientation: alert HENMT Head: normocephalic Ears: external ears normal Nose: external nose normal Face and sinus: normal facial exam Eyes General: appearance normal, both eyes and all related structures Neck Neck: normal visual inspection Chest Chest: normal inspection of the chest Resp Effort & Inspection: normal respiratory effort Cardio Rate: regular rate GI Inspection: normal to inspection Skin General: no rashes or lesions noted and No jaundice Neuro General: patient alert and moves all extremities Cognition: normal cognition Speech: speech normal Extrem General: no pedal edema Psych Appearance: grossly normal Assessment & Plan Assessment & Plan narrative: 71-year-old male with a personal history of colon polyps. Colonoscopy is pursue d today. Time Spent With Patient Critical Care time: I spent a total of [] minutes of critical care time on this patient's care today; this time is exclusive of procedural time.
--- NOTE | 2021-12-02 14:30 | PM.PREOP ---
Pre-operative Note COVID-19 COVID-19 status: Negative Result date/Date tested (Pos, Neg/Pending): 11/29/21 Criteria for continued procedure: Possibility delay results in more complex future surgery or treatment Interval Note History & Physical reviewed/Exam performed by Physician: Yes Changes to H&P: Yes H&P completed within 30 days and has changed as indicated here:: See my note. ASA Class (for procedural sedation): III
--- NOTE | 2021-12-02 14:57 | PM.OP.COLON ---
Operative Date/Time/Diagnoses Date of procedure: 12/02/21 Time of procedure: 14:57 Pre-op diagnosis: Personal history of colon polyps Post-op diagnosis: same Procedure & Clinicians Study performed: Colonoscopy with hot snare polypectomy and cold forceps polypectomy Same procedure as scheduled: Yes Indications: Personal history of colon polyps Surgeon: Lei Sparrow Procedure Notes SCOAP/Timeout: Done Procedure in detail: After the risks and benefits were explained, written and verbal informed consent was obtained. The patient was brought into the procedure room and placed into the left lateral decubitus position. Please see nurse rug cutter helper notes for sedation details. Digital rectal examination was accomplished. The scope was introduced into the patient and advanced under direct visualization to the cecum as identified by the appendiceal orifice and ileocecal valve. The scope was slowly withdrawn to carefully examine the mucosa for any defects or lesions. Comprehensive imaging was accomplished throughout the rectum including the dentate line. The colon was decompressed, the scope was then removed from the patient who tolerated the procedure well. Bowel prep fair Adult colonoscope Scope withdrawal time: 10 minutes Sedation minutes: 23 Complications: none Impression: Some diverticulosis was seen in the left colon. Patient had mild melanosis coli. It was challenging to achieve cecal intubation when the scope finally arrived in front of the ICV. There was a small polyp perhaps 3-4 mm in the cecum removed with cold forceps. In the proximal transverse there was a pedunculated 7 mm polyp removed with hot snare. Endoscopic diagnosis 1. Colon polyps 2. Diverticulosis 3. Mild melanosis coli Post-procedure Plan for aftercare: 1. Await histopathology. 2. Considering fair bowel prep, surveillance colonoscopy in 3 years would be reasonable. Disposition: PACU
--- NOTE | 2021-12-02 15:41 | SUR.PHASEII ---
Valuables returned to patient from locked drawer, repossession of valuables sign formed
== END 2021-12-02 15:41 | disposition home or self-care (01) ==
PROVIDERS: PCP Student in an Organized Health Care Education/Training Program; Referring Provider Internal Medicine Gastroenterology; Visit Provider Internal Medicine Gastroenterology
PROC: 0DJD8ZZ Inspection of Lower Intestinal Tract, Via Natural or Artificial Opening Endoscopic (ICD-10-PCS; CPT 45378; principal; 2021-12-02 14:00)
DX: Z12.11 Encounter for screening for malignant neoplasm of colon (principal); Z86.010 Personal history of colon polyps; I44.7 Left bundle-branch block, unspecified; K63.89 Other specified diseases of intestine; K57.30 Diverticulosis of large intestine without perforation or abscess without bleeding; D12.0 Benign neoplasm of cecum; D12.3 Benign neoplasm of transverse colon
CPT/HCPCS: 45385; 45380; 93005; J2250; J2704

== ENCOUNTER 2021-12-20 06:27 | Inpatient (IN) | payer OTHER, SELFPAY ==
[2021-12-20] VITALS (32 sets, daily range): BP systolic 107–179; BP diastolic 51–87; PULSE 61–84; RESP 16–21; TEMP 36.4–36.6; O2SAT 91–99; BMI 31.1
--- NOTE | 2021-12-20 06:34 | DI.RAD.S_ITS ---
PROCEDURE: XR ELBOW RT MIN 3V INDICATIONS: fall from ladder TECHNIQUE: 3 views of the elbow were acquired. COMPARISON: None. FINDINGS: Bones: No fractures or dislocations. No suspicious bony lesions. Soft tissues: No elbow joint effusion. No suspicious soft tissue calcifications. IMPRESSION: No evidence acute bony abnormality of the right elbow. If clinical suspicion and/or symptoms persist, further assessment with repeat plain films, or advanced imaging (e.g., CT, MRI, or bone scan) may be helpful for further assessment. Comment: Final report is concordant with preliminary interpretation provided by [facility]. Dictated by: Neville Beck M.D. on 12/20/2021 at 8:11 Approved by: Neville Beck M.D. on 12/20/2021 at 8:12
--- NOTE | 2021-12-20 06:34 | DI.RAD.S_ITS ---
PROCEDURE: XR PELVIS 1-2V INDICATIONS: fall from ladder TECHNIQUE: 1 view(s) of the pelvis acquired. COMPARISON: [facility], CT, CT CHEST ABD PEL WO CON, 12/20/2021, 7:05. FINDINGS: Bones: No fractures or dislocations. No suspicious bony lesions. Soft tissues: Visualized bowel gas pattern is normal. No suspicious soft tissue calcifications. IMPRESSION: No visualized acute fracture or dislocation. However, if clinical concern and/or pain persist, short interval imaging followup in 7-10 days is recommended, as occult injury cannot be definitively excluded. Dictated by: Tita Johnson M.D. on 12/20/2021 at 10:23 Approved by: Tita Johnson M.D. on 12/20/2021 at 10:23
--- NOTE | 2021-12-20 06:35 | DI.RAD.S_ITS ---
PROCEDURE: XR CHEST 1V INDICATIONS: fall from ladder TECHNIQUE: One view of the chest was acquired. COMPARISON: [facility], CR, XR CHEST 1V, 01/18/2021, 18:59. FINDINGS: Surgical changes and devices: None. Lungs and pleura: Interstitial pulmonary edema. No pleural effusions or pneumothorax. Mediastinum: Mediastinal contours appear normal. Cardiomegaly. Bones and chest wall: No suspicious bony lesions. Advanced degenerative change in both shoulders. Overlying soft tissues appear unremarkable. IMPRESSION: Congestive heart failure. Comment: Final report is concordant with preliminary interpretation provided by [facility]. Dictated by: Neville Beck M.D. on 12/20/2021 at 8:10 Approved by: Neville Beck M.D. on 12/20/2021 at 8:11
--- NOTE | 2021-12-20 06:35 | DI.CT.S_ITS ---
PROCEDURE: CT HEAD/BRAIN WO CON INDICATIONS: fall from ladder TECHNIQUE: Noncontrast 4.5 mm thick angled axial sections acquired from the foramen magnum to the vertex, with coronal and sagittal reformats. For radiation dose reduction, the following was used: automated exposure control, adjustment of mA and/or kV according to patient size. COMPARISON: None. FINDINGS: Image quality: Excellent. CSF spaces: Basal cisterns are patent. No extra-axial fluid collections. The ventricles are symmetric in size and shape. Brain: No intracranial bleeds or masses. Mild periventricular and deep white matter chronic small vessel ischemic changes. There is intracranial internal carotid artery atherosclerosis. Skull and face: Calvarium and visualized facial bones appear intact, without suspicious lesions. Sinuses: Visualized sinuses and mastoids are clear. IMPRESSION: No acute intracranial finding. Dictated by: Trey Matos M.D. on 12/20/2021 at 8:08 Approved by: Trey Matos M.D. on 12/20/2021 at 8:09
--- NOTE | 2021-12-20 06:36 | DI.RAD.S_ITS ---
PROCEDURE: XR SHOULDER RT MIN 2V INDICATIONS: fall from ladder TECHNIQUE: 3 views of the shoulder were acquired. COMPARISON: [facility], CR, XR SHOULDER LT MIN 2V, 05/23/2019, 16:27. FINDINGS: Bones: No fractures identified. There is appearance of inferior subluxation of the humeral head in relation to the glenohumeral joint. No suspicious bony lesions. Visualized ribs appear intact. Soft tissues: No suspicious soft tissue calcifications. IMPRESSION: No visualized acute fracture. However, if clinical concern and/or pain persist, short interval imaging followup in 7-10 days is recommended, as occult injury cannot be definitively excluded. Appearance of inferior subluxation of the humeral head at the glenohumeral joint space. However, positioning is suboptimal. If there is concern for dislocation, standard Y-views are recommended. Dictated by: Tita Johnson M.D. on 12/20/2021 at 10:24 Approved by: Tita Johnson M.D. on 12/20/2021 at 10:39
--- NOTE | 2021-12-20 06:37 | ED.GENADULT ---
HPI - General Adult <Madeline Mejia MD - Last Filed: 12/27/21 01:54> General Chief complaint: Trauma Stated complaint: fall off ladder Time Seen by Provider: 12/20/21 06:28 History of Present Illness HPI narrative: 71-year-old gentleman with a history of rate controlled atrial fibrillation not anticoagulated, diabetes, degenerative joint disease, congestive heart failure, renal disease prior TIA and multiple musculoskeletal complaints with both neck and low back pain presents 12 hours after a fall off a ladder. Reportedly was on the 2nd rung of the ladder lost his balance fell off landing mainly on his right side complaining of right neck pain right shoulder pain right chest wall pain right hip pain. His was able to help him get up off the ground and get back into the house. He was hurting enough that he was unable to sleep at all last night eventually called 911 this morning. Shallow breathing due to significant pain on the right side. Reports paresthesias starting in his right elbow and radiating up toward his neck. Related Data Home Medications Medication Instructions Recorded Confirmed polyethylene glycol 3350 17 17 gm PO QDAYP #0 04/30/13 12/21/21 gram/dose oral powder (Miralax) allopurinol 300 mg tablet 300 mg PO DAILY #0 04/16/17 12/21/21 diclofenac sodium 1 % topical gel 1 tj TOPICAL Q4H PRN #0 MDD 16 G 04/16/17 12/21/21 (Voltaren) (4 doses) doxazosin 8 mg tablet (Cardura) 8 mg PO BEDTIME #0 04/16/17 12/21/21 sildenafil 100 mg tablet (Viagra) 100 mg PO PRN PRN #0 MDD 100 mg 04/16/17 12/21/21 artificial 1 spray PO PRN PRN 03/24/19 12/21/21 saliva(carboxymethylcellulose-electrolytes) spray pump bumetanide 2 mg tablet 2 mg PO BID 03/24/19 12/21/21 capsaicin 0.025 % topical cream 1 applic TOPICAL PRN PRN 03/24/19 12/21/21 carboxymethylcellulose 0.5 1 applic OPHTHALMIC (EYE) QID 03/24/19 12/21/21 %-glycerin 0.9 % (PF) eye drops,dropperette cholecalciferol (vitamin D3) 25 2,000 unit PO DAILY 03/24/19 12/21/21 mcg (1,000 unit) capsule dexlansoprazole 60 mg 60 mg PO DAILY 03/24/19 12/21/21 capsule,biphase delayed release fexofenadine 180 mg tablet 180 mg PO DAILY 03/24/19 12/21/21 fluoride (sodium) 1.1 % dental 1 applic DENTAL DIRECTED 03/24/19 12/21/21 cream insulin aspart U-100 100 unit/mL See Rx Instructions .ROUTE .COMPLEX 03/24/19 12/21/21 subcutaneous solution multivitamin with minerals 1 cap PO DAILY 03/24/19 12/21/21 pregabalin 75 mg capsule 75 mg PO BID 03/24/19 12/21/21 spironolactone 25 mg tablet 25 mg PO BID 03/24/19 12/21/21 tolterodine 4 mg capsule,extended 4 mg PO DAILY 03/24/19 12/21/21 release 24 hr vitamin B complex 1 tab PO DAILY 03/24/19 12/21/21 chlorhexidine gluconate 0.12 % 15 ml MUCOUS MEMBRANE BID 05/23/19 12/21/21 mouthwash chlorhexidine gluconate 4 % 1 applic TOPICAL DAILY 05/23/19 12/21/21 topical liquid insulin glargine 100 unit/mL 70 unit SUBCUT QAM 05/23/19 12/21/21 subcutaneous solution ipratropium 0.5 mg-albuterol 3 mg 1 ea INHALATION DIRECTED 05/23/19 12/21/21 (2.5 mg base)/3 mL nebulization soln sennosides 8.6 mg-docusate sodium 2 tab PO DAILY 05/23/19 12/21/21 50 mg tablet atorvastatin 20 mg tablet 20 mg PO DAILY 12/02/21 12/21/21 losartan 25 mg tablet 25 mg PO DAILY 12/02/21 12/21/21 semaglutide (Ozempic) 1 mg SUBCUT QWEEK 12/02/21 12/21/21 Previous Rx's Medication Instructions Recorded cyclobenzaprine 10 mg tablet 10 mg PO TID PRN #30 tab 05/23/19 tramadol 50 mg tablet 50 mg PO Q8H PRN #7 tab 05/23/19 lidocaine 5 % topical patch 1 patch TOPICAL DAILY PRN #15 ea 10/21/20 hydrocodone 5 mg-acetaminophen 325 1 tab PO BID PRN #10 tab 10/31/21 mg tablet methocarbamol 500 mg tablet 500 mg PO TID PRN #20 tab 10/31/21 oxycodone 5 mg tablet 5 mg PO Q6H PRN #14 tab 12/22/21 Allergies Allergy/AdvReac Type Severity Reaction Status Date / Time gabapentin Allergy Verified 12/20/21 07:07 Review of Systems <Madeline Mejia MD - Last Filed: 12/27/21 01:54> Review of Systems Narrative: Chronic knee pain from degenerative joint disease Pertinent positive and negative findings as per HPI Remainder of review of systems is otherwise unremarkable for Constitutional: Fevers, chills, weakness ENT: No sore throat, neck pain, ear pain CV: Chest pain, palpitations, Respiratory: Cough, wheeze, dyspnea GI: Nausea, vomiting, diarrhea, : Dysuria, hematuria, Patient History <Madeline Mejia MD - Last Filed: 12/27/21 01:54> Medical History Constipation GERD (gastroesophageal reflux disease) Heart failure HTN (hypertension) Hypercholesteremia Knee pain Renal disease Social History marital status: household members: spouse lives independently: Yes Smoking Status: Former smoker alcohol intake: former Smoking Status: Former smoker tobacco type: cigarettes alcohol intake frequency: 0-2 drinks per day Substance Use Type: does not use Exam <Madeline Mejia MD - Last Filed: 12/27/21 01:54> Initial Vital Signs Initial Vital Signs: Vital Signs Temperature 98 F 12/20/21 06:10 Pulse Rate 78 12/20/21 06:10 Respiratory Rate 16 12/20/21 06:10 Blood Pressure 107/51 L 12/20/21 06:10 Pulse Oximetry 94 12/20/21 06:10 General: Morbidly obese, in obvious pain but able to speak in full sentences HEENT: Moist mucous membranes, normal sclera with reactive pupils, Neck: Significant tenderness to palpation from the right occipital input along the entire right side of the cervical spine. Respiratory: Lungs are clear to auscultation, no wheezing no rales no rhonchi. Full and symmetrical air movement. No subcutaneous air. no clavicular abnormalities or tenderness with palpation Thorax: Tenderness along the right chest mid axillary line without contusion, obvious deformity or subcutaneous air Cardiac: Regular rate and rhythm no murmurs no bruits Abdomen: Soft, obese, nontender, good bowel tones, no flank pain Spine: No tenderness along the thoracic spine. Positive tenderness in the lower lumbar spine and with manipulation of pelvic ring Skin: Warm and dry, no rashes Neurologic: Notes positive but decreased sensation over the posterior portion of the his right upper arm, he is able to move fingers in is vascularly intact distal to this Extremities: No trauma, no tenderness to thighs calves ankles or feet. He does have chronic bilateral knee tenderness that is unchanged from his baseline and he is otherwise well perfused Psych: Cooperative, appropriate insight and affect <Stef Chavez DO - Last Filed: 12/20/21 16:13> Initial Vital Signs Initial Vital Signs: Vital Signs Temperature 98 F 12/20/21 06:10 Pulse Rate 78 12/20/21 06:10 Respiratory Rate 16 12/20/21 06:10 Blood Pressure 107/51 L 12/20/21 06:10 Pulse Oximetry 94 12/20/21 06:10 <Stef Chavez DO - Last Filed: 12/20/21 16:13> Orthopedic Splinting/Casting Injury #1: Side: right Upper Extremity Injury Location: shoulder Upper Extremity Immobilizer: sling/shoulder immobilizer Post splinting neuro exam: intact Post splinting vascular exam: intact Placed by: Nursing Course <Madeline Mejia MD - Last Filed: 12/27/21 01:54> Orders Ordered: Discontinued Medications Hydrocodone Bitart/Acetaminophen (Hydrocodone/Acet 5/325 Tablet) 1 tab PO BID PRN PRN Reason: pain Last Admin: 12/21/21 20:47 Dose: 1 tab Documented by: Admin: 12/21/21 09:24 Dose: 1 tab Documented by: MICKEY Albuterol/Ipratropium (Albuterol/Ipratropium 3 Ml Ampul) ml INH DIRECTED ORLY Artificial Tears (Polyvinyl Alcohol Drops) 1 drops EYE-BOTH QID ORLY Last Admin: 12/22/21 13:08 Dose: Not Given Documented by: Admin: 12/22/21 09:11 Dose: 1 drops Documented by: Admin: 12/21/21 20:47 Dose: 1 drops Documented by: Admin: 12/21/21 18:43 Dose: 1 drops Documented by: Admin: 12/21/21 12:17 Dose: 1 drops Documented by: Admin: 12/21/21 09:22 Dose: 1 drop Documented by: MICKEY Capsaicin (Capsaicin 30 Applic/Tube Cream..G.) 1 applic TOP DAILY PRN PRN Reason: pain Cyclobenzaprine HCl (Cyclobenzaprine 10 Mg Tablet) 10 mg PO TID PRN PRN Reason: muscle spasm Last Admin: 12/22/21 03:13 Dose: 10 mg Documented by: Admin: 12/20/21 23:15 Dose: 10 mg Documented by: AR Dextrose (Dextrose 50 % In Water 25 Gm/50 Ml Syringe) 25 gm IV PRN PRN PRN Reason: Hypoglycemia Doxazosin Mesylate (Doxazosin 4 Mg Tablet) 8 mg PO BEDTIME [facility] Last Admin: 12/21/21 20:48 Dose: 8 mg Documented by: Admin: 12/20/21 22:55 Dose: 8 mg Documented by: AR Enoxaparin Sodium (Enoxaparin 40 Mg/0.4 Ml Syringe) 40 mg SUBCUT DAILY [facility] Last Admin: 12/22/21 09:12 Dose: 40 mg Documented by: Admin: 12/21/21 09:22 Dose: 40 mg Documented by: MICKEY Hydromorphone HCl (Hydromorphone 0.5 Mg Inj) 0.5 mg IV Q15MIN PRN PRN Reason: Pain, Last Admin: 12/21/21 22:30 Dose: 0.5 mg Documented by: Admin: 12/21/21 00:44 Dose: 0.5 mg Documented by: Admin: 12/20/21 21:40 Dose: 0.5 mg Documented by: Admin: 12/20/21 11:17 Dose: 0.5 mg Documented by: Admin: 12/20/21 10:20 Dose: 0.5 mg Documented by: Admin: 12/20/21 07:33 Dose: 0.5 mg Documented by: Admin: 12/20/21 06:45 Dose: 0.5 mg Documented by: GUERO Sodium Chloride (Normal Saline 0.9%) 1,000 mls @ 1,000 mls/hr IV BOLUS ONE Stop: 12/20/21 12:02 Last Infusion: 12/20/21 12:56 Dose: 0 mls/hr Documented by: Admin: 12/20/21 11:17 Dose: 1,000 mls/hr Documented by: DARRICK Sodium Chloride (Normal Saline 0.9%) 1,000 mls @ 100 mls/hr IV CONT [facility] Last Admin: 12/22/21 08:25 Dose: 100 mls/hr Documented by: Infusion: 12/22/21 08:25 Dose: 100 mls/hr Documented by: Admin: 12/21/21 22:29 Dose: 100 mls/hr Documented by: Infusion: 12/21/21 20:08 Dose: 100 mls/hr Documented by: Admin: 12/21/21 10:08 Dose: 100 mls/hr Documented by: Infusion: 12/21/21 09:12 Dose: 100 mls/hr Documented by: Admin: 12/20/21 23:12 Dose: 100 mls/hr Documented by: KENYAHAW Insulin Glargine (Insulin Glargine 100 Unit/Ml 3ml Pen) 70 unit SUBCUT DAILY [facility] Last Admin: 12/22/21 09:10 Dose: 70 unit Documented by: MICKEY Cosigned by: Analy Admin: 12/21/21 09:23 Dose: 70 unit Documented by: MICKEY Cosigned by: ESTRELLITA Insulin Human Lispro (Insulin Lispro 100 Unit/Ml 3ml Vial) 30 unit SUBCUT BIDAC [facility] Last Admin: 12/22/21 09:15 Dose: 15 unit Documented by: MICKEY Cosigned by: ESTRELLITA Admin: 12/21/21 17:47 Dose: Not Given Documented by: Analy Admin: 12/21/21 08:56 Dose: 30 unit Documented by: MICKEY Cosigned by: GPEREZ Insulin Human Lispro (Insulin Lispro 100 Unit/Ml 3ml Vial) 34 unit SUBCUT 1145 [facility] Last Admin: 12/22/21 13:07 Dose: Not Given Documented by: Admin: 12/21/21 12:04 Dose: 34 unit Documented by: MICKEY Cosigned by: ESTRELLITA Lidocaine (Lidocaine Patch 1 Each Adh..Patch) 1 each TOP DAILY PRN PRN Reason: pain Last Admin: 12/21/21 17:29 Dose: 1 each Documented by: Admin: 12/21/21 12:31 Dose: 1 each Documented by: MICKEY Loratadine (Loratadine 10 Mg Tablet) 10 mg PO DAILY [facility] Last Admin: 12/22/21 09:10 Dose: 10 mg Documented by: Admin: 12/21/21 09:22 Dose: 10 mg Documented by: MICKEY Multivitamins (Multivitamin 1 Tablet) 1 tab PO DAILY [facility] Last Admin: 12/22/21 09:10 Dose: 1 tab Documented by: Admin: 12/21/21 09:14 Dose: 1 tab Documented by: MICKEY Naloxone HCl (Naloxone 0.4 Mg/Ml Vial) 0.2 mg IV Q2MIN PRN PRN Reason: Opiate Reversal (Artificial Saliva ( Cmce-Lytes) [place] With Pump) 1 spray PO PRN PRN PRN Reason: Dry Mouth Vitamin B Complex (Tablet) 1 tab PO DAILY [facility] Glucose Tablets 4g ( (Chew Tabs)) 4 each PO PRN PRN PRN Reason: LOW BLOOD SUGAR Ondansetron HCl (Ondansetron 4 Mg/2 Ml Inj) 4 mg IV NOW ONE Stop: 12/20/21 06:35 Last Admin: 12/20/21 06:45 Dose: 4 mg Documented by: GUERO Oxybutynin Chloride (Oxybutynin 5 Mg Er Tab) 10 mg PO DAILY [facility] Last Admin: 12/22/21 09:10 Dose: 10 mg Documented by: Admin: 12/21/21 09:21 Dose: 10 mg Documented by: MICKEY Pantoprazole Sodium (Pantoprazole Dr 40 Mg Tablet) 40 mg PO DAILY [facility] Last Admin: 12/22/21 09:10 Dose: 40 mg Documented by: Admin: 12/21/21 09:14 Dose: 40 mg Documented by: MICKEY Polyethylene Glycol (Polyethylene Glycol 3350 17 Gm Powd.Pack) 17 gm PO DAILY PRN PRN Reason: Constipation Tramadol HCl (Tramadol 50 Mg Tablet) 50 mg PO Q8H PRN PRN Reason: pain Last Admin: 12/22/21 03:13 Dose: 50 mg Documented by: Admin: 12/21/21 17:30 Dose: 50 mg Documented by: Admin: 12/20/21 23:15 Dose: 50 mg Documented by: AR Vitamin D (Cholecalciferol (Vitamin D3) 1,000 Unit Tablet) 2,000 unit PO DAILY [facility] Last Admin: 12/22/21 09:10 Dose: 2,000 unit Documented by: Admin: 12/21/21 09:22 Dose: 2,000 unit Documented by: MICKEY Vital Signs Vital signs: Vital Signs - 8 hr 12/20/21 08:16 12/20/21 08:30 12/20/21 08:46 Pulse Rate 69 72 68 Blood Pressure 154/79 H 155/82 H 151/74 H Pulse Oximetry 97 97 95 12/20/21 09:00 12/20/21 09:15 12/20/21 09:30 Pulse Rate 66 68 66 Blood Pressure 153/87 H 165/67 H 161/76 H Pulse Oximetry 96 98 97 12/20/21 09:45 12/20/21 10:00 12/20/21 10:16 Pulse Rate 61 66 68 Blood Pressure 145/67 H 138/65 120/55 L Pulse Oximetry 97 97 97 12/20/21 10:30 12/20/21 10:45 12/20/21 11:00 Pulse Rate 66 66 65 Blood Pressure 127/62 124/68 109/64 Pulse Oximetry 95 97 98 12/20/21 11:16 12/20/21 11:30 12/20/21 12:00 Pulse Rate 64 65 69 Blood Pressure 138/63 Pulse Oximetry 98 96 98 12/20/21 12:30 12/20/21 13:00 12/20/21 13:30 Pulse Rate 64 70 67 Blood Pressure Pulse Oximetry 99 99 98 12/20/21 13:49 Pulse Rate 78 Blood Pressure 179/72 H Pulse Oximetry 95 <Stef Chavez, - Last Filed: 12/20/21 16:13> Course Course Narrative: Patient has reassuring evaluation from a trauma standpoint, however his initial elevated creatinine slightly worsened after a L of fluid. He requires hospitalization for ongoing evaluation of his acute kidney injury. I have spoken with on-call orthopedist (Dr. Nickerson) who has reviewed the case and agrees that a sling and pain control is all that is needed in this situation, there is no indication for surgical intervention of his humeral head fracture. Orders Ordered: Discontinued Medications Hydrocodone Bitart/Acetaminophen (Hydrocodone/Acet 5/325 Tablet) 1 tab PO BID PRN PRN Reason: pain Last Admin: 12/21/21 20:47 Dose: 1 tab Documented by: Admin: 12/21/21 09:24 Dose: 1 tab Documented by: MICKEY Albuterol/Ipratropium (Albuterol/Ipratropium 3 Ml Ampul) ml INH DIRECTED [facility] Artificial Tears (Polyvinyl Alcohol Drops) 1 drops EYE-BOTH QID [facility] Last Admin: 12/22/21 13:08 Dose: Not Given Documented by: Admin: 12/22/21 09:11 Dose: 1 drops Documented by: Admin: 12/21/21 20:47 Dose: 1 drops Documented by: Admin: 12/21/21 18:43 Dose: 1 drops Documented by: Admin: 12/21/21 12:17 Dose: 1 drops Documented by: Admin: 12/21/21 09:22 Dose: 1 drop Documented by: MICKEY Capsaicin (Capsaicin 30 Applic/Tube Cream..G.) 1 applic TOP DAILY PRN PRN Reason: pain Cyclobenzaprine HCl (Cyclobenzaprine 10 Mg Tablet) 10 mg PO TID PRN PRN Reason: muscle spasm Last Admin: 12/22/21 03:13 Dose: 10 mg Documented by: Admin: 12/20/21 23:15 Dose: 10 mg Documented by: AR Dextrose (Dextrose 50 % In Water 25 Gm/50 Ml Syringe) 25 gm IV PRN PRN PRN Reason: Hypoglycemia Doxazosin Mesylate (Doxazosin 4 Mg Tablet) 8 mg PO BEDTIME [facility] Last Admin: 12/21/21 20:48 Dose: 8 mg Documented by: Admin: 12/20/21 22:55 Dose: 8 mg Documented by: AR Enoxaparin Sodium (Enoxaparin 40 Mg/0.4 Ml Syringe) 40 mg SUBCUT DAILY [facility] Last Admin: 12/22/21 09:12 Dose: 40 mg Documented by: Admin: 12/21/21 09:22 Dose: 40 mg Documented by: MICKEY Hydromorphone HCl (Hydromorphone 0.5 Mg Inj) 0.5 mg IV Q15MIN PRN PRN Reason: Pain, Last Admin: 12/21/21 22:30 Dose: 0.5 mg Documented by: Admin: 12/21/21 00:44 Dose: 0.5 mg Documented by: Admin: 12/20/21 21:40 Dose: 0.5 mg Documented by: Admin: 12/20/21 11:17 Dose: 0.5 mg Documented by: Admin: 12/20/21 10:20 Dose: 0.5 mg Documented by: Admin: 12/20/21 07:33 Dose: 0.5 mg Documented by: Admin: 12/20/21 06:45 Dose: 0.5 mg Documented by: GUERO Sodium Chloride (Normal Saline 0.9%) 1,000 mls @ 1,000 mls/hr IV BOLUS ONE Stop: 12/20/21 12:02 Last Infusion: 12/20/21 12:56 Dose: 0 mls/hr Documented by: Admin: 12/20/21 11:17 Dose: 1,000 mls/hr Documented by: DARRICK Sodium Chloride (Normal Saline 0.9%) 1,000 mls @ 100 mls/hr IV CONT [facility] Last Admin: 12/22/21 08:25 Dose: 100 mls/hr Documented by: Infusion: 12/22/21 08:25 Dose: 100 mls/hr Documented by: Admin: 12/21/21 22:29 Dose: 100 mls/hr Documented by: Infusion: 12/21/21 20:08 Dose: 100 mls/hr Documented by: Admin: 12/21/21 10:08 Dose: 100 mls/hr Documented by: Infusion: 12/21/21 09:12 Dose: 100 mls/hr Documented by: Admin: 12/20/21 23:12 Dose: 100 mls/hr Documented by: AR Insulin Glargine (Insulin Glargine 100 Unit/Ml 3ml Pen) 70 unit SUBCUT DAILY [facility] Last Admin: 12/22/21 09:10 Dose: 70 unit Documented by: MICKEY Cosigned by: ESTRELLITA Admin: 12/21/21 09:23 Dose: 70 unit Documented by: MICKEY Quiñonesigned by: ESTRELLITA Insulin Human Lispro (Insulin Lispro 100 Unit/Ml 3ml Vial) 30 unit SUBCUT BIDAC [facility] Last Admin: 12/22/21 09:15 Dose: 15 unit Documented by: MICKEY Quiñonesigned by: ESTRELLITA Admin: 12/21/21 17:47 Dose: Not Given Documented by: Admin: 12/21/21 08:56 Dose: 30 unit Documented by: MICKEY Quiñonesigned by: GPEREZ Insulin Human Lispro (Insulin Lispro 100 Unit/Ml 3ml Vial) 34 unit SUBCUT 1145 [facility] Last Admin: 12/22/21 13:07 Dose: Not Given Documented by: Admin: 12/21/21 12:04 Dose: 34 unit Documented by: MICKEY Cosigned by: Lidocaine (Lidocaine Patch 1 Each Adh..Patch) 1 each TOP DAILY PRN PRN Reason: pain Last Admin: 12/21/21 17:29 Dose: 1 each Documented by: Admin: 12/21/21 12:31 Dose: 1 each Documented by: MICKEY Loratadine (Loratadine 10 Mg Tablet) 10 mg PO DAILY [facility] Last Admin: 12/22/21 09:10 Dose: 10 mg Documented by: Admin: 12/21/21 09:22 Dose: 10 mg Documented by: MICKEY Multivitamins (Multivitamin 1 Tablet) 1 tab PO DAILY [facility] Last Admin: 12/22/21 09:10 Dose: 1 tab Documented by: Admin: 12/21/21 09:14 Dose: 1 tab Documented by: MICKEY Naloxone HCl (Naloxone 0.4 Mg/Ml Vial) 0.2 mg IV Q2MIN PRN PRN Reason: Opiate Reversal (Artificial Saliva ( Cmce-Lytes) [place] With Pump) 1 spray PO PRN PRN PRN Reason: Dry Mouth Vitamin B Complex (Tablet) 1 tab PO DAILY [facility] Glucose Tablets 4g ( (Chew Tabs)) 4 each PO PRN PRN PRN Reason: LOW BLOOD SUGAR Ondansetron HCl (Ondansetron 4 Mg/2 Ml Inj) 4 mg IV NOW ONE Stop: 12/20/21 06:35 Last Admin: 12/20/21 06:45 Dose: 4 mg Documented by: GUERO Oxybutynin Chloride (Oxybutynin 5 Mg Er Tab) 10 mg PO DAILY [facility] Last Admin: 12/22/21 09:10 Dose: 10 mg Documented by: Admin: 12/21/21 09:21 Dose: 10 mg Documented by: MICKEY Pantoprazole Sodium (Pantoprazole Dr 40 Mg Tablet) 40 mg PO DAILY [facility] Last Admin: 12/22/21 09:10 Dose: 40 mg Documented by: Admin: 12/21/21 09:14 Dose: 40 mg Documented by: MICKEY Polyethylene Glycol (Polyethylene Glycol 3350 17 Gm Powd.Pack) 17 gm PO DAILY PRN PRN Reason: Constipation Tramadol HCl (Tramadol 50 Mg Tablet) 50 mg PO Q8H PRN PRN Reason: pain Last Admin: 12/22/21 03:13 Dose: 50 mg Documented by: Admin: 12/21/21 17:30 Dose: 50 mg Documented by: Admin: 12/20/21 23:15 Dose: 50 mg Documented by: AR Vitamin D (Cholecalciferol (Vitamin D3) 1,000 Unit Tablet) 2,000 unit PO DAILY [facility] Last Admin: 12/22/21 09:10 Dose: 2,000 unit Documented by: Admin: 12/21/21 09:22 Dose: 2,000 unit Documented by: MICKEY Consultations Consultation #1: discussed with dog control officer ortho (Krishan) pain control and sling, not surgical injury Consultation #2: hospitalist happy to accept Vital Signs Vital signs: Vital Signs - 8 hr 12/20/21 08:16 12/20/21 08:30 12/20/21 08:46 Pulse Rate 69 72 68 Blood Pressure 154/79 H 155/82 H 151/74 H Pulse Oximetry 97 97 95 12/20/21 09:00 12/20/21 09:15 12/20/21 09:30 Pulse Rate 66 68 66 Blood Pressure 153/87 H 165/67 H 161/76 H Pulse Oximetry 96 98 97 12/20/21 09:45 12/20/21 10:00 12/20/21 10:16 Pulse Rate 61 66 68 Blood Pressure 145/67 H 138/65 120/55 L Pulse Oximetry 97 97 97 12/20/21 10:30 12/20/21 10:45 12/20/21 11:00 Pulse Rate 66 66 65 Blood Pressure 127/62 124/68 109/64 Pulse Oximetry 95 97 98 12/20/21 11:16 12/20/21 11:30 12/20/21 12:00 Pulse Rate 64 65 69 Blood Pressure 138/63 Pulse Oximetry 98 96 98 12/20/21 12:30 12/20/21 13:00 12/20/21 13:30 Pulse Rate 64 70 67 Blood Pressure Pulse Oximetry 99 99 98 12/20/21 13:49 Pulse Rate 78 Blood Pressure 179/72 H Pulse Oximetry 95 Medical Decision Making <Madeline Mejia MD - Last Filed: 12/27/21 01:54> Lab Data Result diagrams: 12/22/21 07:05 12/22/21 07:05 Labs: Lab Results 12/20/21 12/20/21 12/20/21 Range/Units 07:29 07:30 07:30 WBC 5.3 (4.5-11.0) X10^3/uL RBC 4.05 L (4.5-5.9) X10^6/uL Hgb 12.1 L (13.5-17.5) g/dL Hct 35.8 L (41-53) % MCV 88.5 (80-100) fL MCH 30.0 (26-34) PG MCHC 33.9 (30-36) % RDW 14.7 (11.6-14.8) % Plt Count 149 L (150-400) X10^3/uL Neut % (Auto) 57.0 (50-75) % Lymph % (Auto) 27.3 (25-40) % [place] % (Auto) 12.5 (3-14) % Eos % (Auto) 2.3 (2-4) % Baso % (Auto) 0.9 (0-2) % Neut # (Auto) 3000 (9402-0017) /uL Lymph # (Auto) 1500 (7550-6539) /uL [place] # (Auto) 700 (0-900) /uL Eos # (Auto) 100 (0-450) /uL Baso # (Auto) 0 (0-100) /uL Sodium 141 142 (137-145) mmol/L Potassium 3.6 3.5 (3.4-5.1) mmol/L Chloride 101 102 (98-107) mmol/L Carbon Dioxide 29 27 (22-32) mmol/L BUN 41 H 40 H (9-20) mg/dL Creatinine 2.63 H 2.67 H (0.66-1.25) mg/dL Estimated GFR 24.3 L 23.9 L (>60) mL/min BUN/Creatinine Ratio 15.6 15.0 (6-22) Glucose 196 H 201 H (80-110) mg/dL Calcium 9.1 9.1 (8.4-10.2) mg/dL Total Bilirubin 0.4 (0.2-1.3) mg/dL AST 28 (17-59) IU/L ALT 17 (<50) IU/L Alkaline Phosphatase 90 (38-126) U/L Troponin I 0.016 (0.01-0.034) ng/mL Total Protein 7.1 (6.3-8.2) g/dL Albumin 4.3 (3.5-5.0) g/dL Globulin 2.8 (1.7-4.1) g/dL Albumin/Globulin Ratio 1.5 (1.0-2.8) SARS-CoV-2 (PCR) (Negative) 12/20/21 Range/Units 07:35 WBC (4.5-11.0) X10^3/uL RBC (4.5-5.9) X10^6/uL Hgb (13.5-17.5) g/dL Hct (41-53) % MCV (80-100) fL MCH (26-34) PG MCHC (30-36) % RDW (11.6-14.8) % Plt Count (150-400) X10^3/uL Neut % (Auto) (50-75) % Lymph % (Auto) (25-40) % [place] % (Auto) (3-14) % Eos % (Auto) (2-4) % Baso % (Auto) (0-2) % Neut # (Auto) (7580-9175) /uL Lymph # (Auto) (4930-5057) /uL [place] # (Auto) (0-900) /uL Eos # (Auto) (0-450) /uL Baso # (Auto) (0-100) /uL Sodium (137-145) mmol/L Potassium (3.4-5.1) mmol/L Chloride (98-107) mmol/L Carbon Dioxide (22-32) mmol/L BUN (9-20) mg/dL Creatinine (0.66-1.25) mg/dL Estimated GFR (>60) mL/min BUN/Creatinine Ratio (6-22) Glucose (80-110) mg/dL Calcium (8.4-10.2) mg/dL Total Bilirubin (0.2-1.3) mg/dL AST (17-59) IU/L ALT (<50) IU/L Alkaline Phosphatase (38-126) U/L Troponin I (0.01-0.034) ng/mL Total Protein (6.3-8.2) g/dL Albumin (3.5-5.0) g/dL Globulin (1.7-4.1) g/dL Albumin/Globulin Ratio (1.0-2.8) SARS-CoV-2 (PCR) Negative (Negative) MDM Narrative Medical decision making narrative: 71-year-old gentleman with multiple medical issues fall from 2nd rung of the ladder onto his right side approximately 12 hours prior to presentation. Significant right-sided neck arm rib and pelvic pain. Labs and imaging studies are initiated. No evidence of immediate pneumothorax. Care is turned over to Dr. Chavez at change of shift. Imaging studies and labs are pending <Stef Chavez DO - Last Filed: 12/20/21 16:13> Lab Data Labs: Lab Results 12/20/21 12/20/21 12/20/21 Range/Units 07:29 07:30 07:30 WBC 5.3 (4.5-11.0) X10^3/uL RBC 4.05 L (4.5-5.9) X10^6/uL Hgb 12.1 L (13.5-17.5) g/dL Hct 35.8 L (41-53) % MCV 88.5 (80-100) fL MCH 30.0 (26-34) PG MCHC 33.9 (30-36) % RDW 14.7 (11.6-14.8) % Plt Count 149 L (150-400) X10^3/uL Neut % (Auto) 57.0 (50-75) % Lymph % (Auto) 27.3 (25-40) % [place] % (Auto) 12.5 (3-14) % Eos % (Auto) 2.3 (2-4) % Baso % (Auto) 0.9 (0-2) % Neut # (Auto) 3000 (0508-8976) /uL Lymph # (Auto) 1500 (9705-2856) /uL [place] # (Auto) 700 (0-900) /uL Eos # (Auto) 100 (0-450) /uL Baso # (Auto) 0 (0-100) /uL Sodium 141 142 (137-145) mmol/L Potassium 3.6 3.5 (3.4-5.1) mmol/L Chloride 101 102 (98-107) mmol/L Carbon Dioxide 29 27 (22-32) mmol/L BUN 41 H 40 H (9-20) mg/dL Creatinine 2.63 H 2.67 H (0.66-1.25) mg/dL Estimated GFR 24.3 L 23.9 L (>60) mL/min BUN/Creatinine Ratio 15.6 15.0 (6-22) Glucose 196 H 201 H (80-110) mg/dL Calcium 9.1 9.1 (8.4-10.2) mg/dL Total Bilirubin 0.4 (0.2-1.3) mg/dL AST 28 (17-59) IU/L ALT 17 (<50) IU/L Alkaline Phosphatase 90 (38-126) U/L Troponin I 0.016 (0.01-0.034) ng/mL Total Protein 7.1 (6.3-8.2) g/dL Albumin 4.3 (3.5-5.0) g/dL Globulin 2.8 (1.7-4.1) g/dL Albumin/Globulin Ratio 1.5 (1.0-2.8) SARS-CoV-2 (PCR) (Negative) 12/20/21 Range/Units 07:35 WBC (4.5-11.0) X10^3/uL RBC (4.5-5.9) X10^6/uL Hgb (13.5-17.5) g/dL Hct (41-53) % MCV (80-100) fL MCH (26-34) PG MCHC (30-36) % RDW (11.6-14.8) % Plt Count (150-400) X10^3/uL Neut % (Auto) (50-75) % Lymph % (Auto) (25-40) % [place] % (Auto) (3-14) % Eos % (Auto) (2-4) % Baso % (Auto) (0-2) % Neut # (Auto) (6364-2794) /uL Lymph # (Auto) (8712-1198) /uL [place] # (Auto) (0-900) /uL Eos # (Auto) (0-450) /uL Baso # (Auto) (0-100) /uL Sodium (137-145) mmol/L Potassium (3.4-5.1) mmol/L Chloride (98-107) mmol/L Carbon Dioxide (22-32) mmol/L BUN (9-20) mg/dL Creatinine (0.66-1.25) mg/dL Estimated GFR (>60) mL/min BUN/Creatinine Ratio (6-22) Glucose (80-110) mg/dL Calcium (8.4-10.2) mg/dL Total Bilirubin (0.2-1.3) mg/dL AST (17-59) IU/L ALT (<50) IU/L Alkaline Phosphatase (38-126) U/L Troponin I (0.01-0.034) ng/mL Total Protein (6.3-8.2) g/dL Albumin (3.5-5.0) g/dL Globulin (1.7-4.1) g/dL Albumin/Globulin Ratio (1.0-2.8) SARS-CoV-2 (PCR) Negative (Negative) Imaging Data CT scan - head: Radiologist's Impression: [address] [address] [address] Scan Report Signed Patient: Khris Guaman MR#: [id number] : 1950 Acct:[id number] Age/Sex: 71 / M Date of Service: 12/20/21 Loc: ED Accession Number: [id number] ?? Procedure: CT head/brain wo con Ordering Provider: Madeline Mejia MD PROCEDURE:? CT HEAD/BRAIN WO CON ? INDICATIONS:? fall from ladder ? TECHNIQUE:? Noncontrast 4.5 mm thick angled axial sections acquired from the foramen magnum to the vertex, with coronal and sagittal reformats.? For radiation dose reduction, the following was used:? automated exposure control, adjustment of mA and/or kV according to patient size.? ? COMPARISON:? None. ? FINDINGS:? Image quality:? Excellent.? ? CSF spaces:? Basal cisterns are patent.? No extra-axial fluid collections.? The ventricles are symmetric in size and shape.? ? Brain:? No intracranial bleeds or masses.? Mild periventricular and deep white matter chronic small vessel ischemic changes.? There is intracranial internal carotid artery atherosclerosis.? ? Skull and face:? Calvarium and visualized facial bones appear intact, without suspicious lesions.? ? Sinuses:? Visualized sinuses and mastoids are clear.? ? IMPRESSION:? No acute intracranial finding. ? ? Dictated by: Trey Matos M.D. on 12/20/2021 at 8:08 ? ? Approved by: Trey Matos M.D. on 12/20/2021 at 8:09 ? CT - cervical spine: Radiologist's Impression: [place] [address] CT Scan Report Signed Patient: Khris Guaman MR#: [id number] : 1950 Acct:[id number] Age/Sex: 71 / M Date of Service: 12/20/21 Loc: ED Accession Number: [id number] ?? Procedure: CT cervical spine wo con Ordering Provider: Madeline Mejia MD PROCEDURE:? CT CERVICAL SPINE WO CON ? INDICATIONS:? fall from ladder, pain Right side of c spine ? TECHNIQUE:? Noncontrast 3 mm thick sections acquired from the skull base to the T4 level.? Sagittal and coronal reformats were then constructed.? For radiation dose reduction, the following was used:? automated exposure control, adjustment of mA and/or kV according to patient size.? ? COMPARISON:? [facility], CT, CT SOFT TISSUE NECK WO CON, 10/31/2021, 15:59. ? FINDINGS:? No cervical spine fracture or malalignment.? Overall moderate degenerative changes again noted.? Prevertebral and paraspinous soft tissues are normal.? Large left thyroid lobe mass redemonstrated. ? ? IMPRESSION:? No CT evidence of acute traumatic cervical spine injury. ? Dictated by: Trey Matos M.D. on 12/20/2021 at 8:09 ? ? Approved by: Trey Matos M.D. on 12/20/2021 at 8:11 ? CT scan - chest: Radiologist's Impression: [place] [address] CT Scan Report Signed Patient: Khris Guaman MR#: [id number] : 1950 Acct:[id number] Age/Sex: 71 / M Date of Service: 12/20/21 Loc: ED Accession Number: [id number] ?? Procedure: CT chest abd pel wo con Ordering Provider: Madeline Mejia MD PROCEDURE:? CT CHEST ABD PEL WO CON ? INDICATIONS:? trauma ? TECHNIQUE:? After the administration of oral contrast, 5 mm thick sections acquired from the lung apices to the symphysis pubis.? 5 mm thick coronal and sagittal reformats acquired, with additional 7 mm coronal MIP reformats through the lungs.? For radiation dose reduction, the following was used:? automated exposure control, adjustment of mA and/or kV according to patient size.? ? COMPARISON:? [facility], CT, CT HEAD/BRAIN WO CON, 12/20/2021, 7:05.? [facility], CT, CT CERVICAL SPINE WO CON, 12/20/2021, 7:05. ? FINDINGS:? Image quality:? Excellent.? ? CHEST:? Lungs and pleura:? No acute pulmonary opacities.? No pleural effusions or pneumothorax.? Central and peripheral airways are patent are normal in caliber.? ? Mediastinum:? Heart size is enlarged.? No pericardial effusion.? No mediastinal adenopathy by CT size criteria.? Thoracic aorta and central pulmonary arteries are normal in size.? Esophagus is normal in caliber.? No hiatal hernia.? ? Chest wall:? No axillary or supraclavicular adenopathy by size criteria.? Thyroid gland demonstrates heterogeneous enlargement on the left with areas of heterogeneous low attenuation on the right. .? ? ? ABDOMEN:? Solid organs:? Liver is normal in size.? Gallbladder is unremarkable .? Pancreas is normal in contours.? Spleen is normal in size.? No adrenal nodules.? Both kidneys are atrophic in size, without hydronephrosis or nephrolithiasis.? ? Peritoneum and bowel:? Small and large bowel loops are normal in caliber and wall thickness.? No free fluid or air.? ? Nodes and vessels:? No retroperitoneal or mesenteric adenopathy by size criteria.? Aorta and inferior vena cava are normal in size.? ? Miscellaneous:? No ventral hernias.? ? ? PELVIS:? Genitourinary:? Bladder wall thickness is normal.? ? Miscellaneous:? No inguinal hernias or adenopathy.? ? Bones:? No suspicious bony lesions.? No vertebral body compression fractures.? ? IMPRESSION:? ? No evidence of osseous or visceral injury. ? ? Dictated by: Tita Johnson M.D. on 12/20/2021 at 10:19 ? ? Approved by: Tita Johnson M.D. on 12/20/2021 at 10:22 ? Chest x-ray: Radiologist's Impression: Launch?[place] [address] XRay Report Signed Patient: Khris Guaman MR#: [id number] : 1950 Acct:[id number] Age/Sex: 71 / M Date of Service: 12/20/21 Loc: ED Accession Number: [id number] ?? Procedure: XR chest 1V Ordering Provider: Madeline Mejia MD PROCEDURE:? XR CHEST 1V ? INDICATIONS:? fall from ladder ? TECHNIQUE:? One view of the chest was acquired.? ? COMPARISON:? [facility], , XR CHEST 1V, 01/18/2021, 18:59. ? FINDINGS:? ? Surgical changes and devices:? None.? ? Lungs and pleura:? Interstitial pulmonary edema.? No pleural effusions or pneumothorax.? ? Mediastinum:? Mediastinal contours appear normal.? Cardiomegaly. ? Bones and chest wall:? No suspicious bony lesions.? Advanced degenerative change in both shoulders.? Overlying soft tissues appear unremarkable.? ? IMPRESSION:? Congestive heart failure. ? ? Comment: Final report is concordant with preliminary interpretation provided by [facility]. ? Dictated by: Neville Beck M.D. on 12/20/2021 at 8:10 ? ? Approved by: Neville Beck M.D. on 12/20/2021 at 8:11? Pelvic Xray: Radiologist's Impression: [address] [address] XRay Report Signed Patient: Khris Guaman MR#: [id number] : 1950 Acct:[id number] Age/Sex: 71 / M Date of Service: 12/20/21 Loc: ED Accession Number: [id number] ?? Procedure: XR pelvis 1-2V Ordering Provider: Madeline Mejia MD PROCEDURE:? XR PELVIS 1-2V ? INDICATIONS:? fall from ladder ? TECHNIQUE:? 1 view(s) of the pelvis acquired.? ? COMPARISON:? [facility], CT, CT CHEST ABD PEL WO CON, 12/20/2021, 7:05. ? FINDINGS:? ? Bones:? No fractures or dislocations.? No suspicious bony lesions.? ? Soft tissues:? Visualized bowel gas pattern is normal.? No suspicious soft tissue calcifications.? ? IMPRESSION:? No visualized acute fracture or dislocation. However, if clinical concern and/or pain persist, short interval imaging followup in 7-10 days is recommended, as occult injury cannot be definitively excluded. ? ? Dictated by: Tita Johnson M.D. on 12/20/2021 at 10:23 ? ? Approved by: Tita Johnson M.D. on 12/20/2021 at 10:23 ? Discharge Plan Departure Patient Disposition: Admitted As Inpatient Clinical Impression: Fall on and from ladder, initial encounter, Acute kidney injury, Fracture of proximal end of humerus Admit Date/Time: 12/20/21 14:49 Admit Provider: Etelvina Mendieta
[2021-12-20] MEDS: HYDROMORPHONE 0.5 MG INJ IV ×5 (06:45→21:40)
[2021-12-20] MEDS: ONDANSETRON 4 MG/2 ML INJ IV (06:45)
--- NOTE | 2021-12-20 07:00 | DI.CT.S_ITS ---
PROCEDURE: CT CHEST ABD PEL WO CON INDICATIONS: trauma TECHNIQUE: After the administration of oral contrast, 5 mm thick sections acquired from the lung apices to the symphysis pubis. 5 mm thick coronal and sagittal reformats acquired, with additional 7 mm coronal MIP reformats through the lungs. For radiation dose reduction, the following was used: automated exposure control, adjustment of mA and/or kV according to patient size. COMPARISON: [facility], CT, CT HEAD/BRAIN WO CON, 12/20/2021, 7:05. [facility], CT, CT CERVICAL SPINE WO CON, 12/20/2021, 7:05. FINDINGS: Image quality: Excellent. CHEST: Lungs and pleura: No acute pulmonary opacities. No pleural effusions or pneumothorax. Central and peripheral airways are patent are normal in caliber. Mediastinum: Heart size is enlarged. No pericardial effusion. No mediastinal adenopathy by CT size criteria. Thoracic aorta and central pulmonary arteries are normal in size. Esophagus is normal in caliber. No hiatal hernia. Chest wall: No axillary or supraclavicular adenopathy by size criteria. Thyroid gland demonstrates heterogeneous enlargement on the left with areas of heterogeneous low attenuation on the right. . ABDOMEN: Solid organs: Liver is normal in size. Gallbladder is unremarkable . Pancreas is normal in contours. Spleen is normal in size. No adrenal nodules. Both kidneys are atrophic in size, without hydronephrosis or nephrolithiasis. Peritoneum and bowel: Small and large bowel loops are normal in caliber and wall thickness. No free fluid or air. Nodes and vessels: No retroperitoneal or mesenteric adenopathy by size criteria. Aorta and inferior vena cava are normal in size. Miscellaneous: No ventral hernias. PELVIS: Genitourinary: Bladder wall thickness is normal. Miscellaneous: No inguinal hernias or adenopathy. Bones: No suspicious bony lesions. No vertebral body compression fractures. IMPRESSION: No evidence of osseous or visceral injury. Dictated by: Tita Johnson M.D. on 12/20/2021 at 10:19 Approved by: Tita Johnson M.D. on 12/20/2021 at 10:22
--- NOTE | 2021-12-20 07:14 | DI.CT.S_ITS ---
PROCEDURE: CT CERVICAL SPINE WO CON INDICATIONS: fall from ladder, pain Right side of c spine TECHNIQUE: Noncontrast 3 mm thick sections acquired from the skull base to the T4 level. Sagittal and coronal reformats were then constructed. For radiation dose reduction, the following was used: automated exposure control, adjustment of mA and/or kV according to patient size. COMPARISON: [facility], CT, CT SOFT TISSUE NECK WO CON, 10/31/2021, 15:59. FINDINGS: No cervical spine fracture or malalignment. Overall moderate degenerative changes again noted. Prevertebral and paraspinous soft tissues are normal. Large left thyroid lobe mass redemonstrated. IMPRESSION: No CT evidence of acute traumatic cervical spine injury. Dictated by: Trey Matos M.D. on 12/20/2021 at 8:09 Approved by: Trey Matos M.D. on 12/20/2021 at 8:11
[2021-12-20 07:37] LABS: Add Manual Diff / Slide Review NO; Basophils Absolute Auto 0 /uL (0-100); Basophils Percent Auto 0.9 % (0-2); Eosinophils Absolute Auto 100 /uL (0-450); Eosinophils Percent Auto 2.3 % (2-4); Hematocrit 35.8 % (41-53); Hemoglobin 12.1 g/dL (13.5-17.5); Lymphocytes Absolute Auto 1500 /uL (1100-4500); Lymphocytes Percent Auto 27.3 % (25-40); Mean Corpuscular HGB Conc 33.9 % (30-36); Mean Corpuscular Volume 88.5 fL (80-100); Monocytes Absolute Auto 700 /uL (0-900); Monocytes Percent Auto 12.5 % (3-14); Neutrophils Absolute Auto 3000 /uL (1500-7000); Platelet Count 149 X10^3/uL (150-400); Red Blood Cell Count 4.05 X10^6/uL (4.5-5.9); Red Cell Distribution Width 14.7 % (11.6-14.8); White Blood Cell Count 5.3 X10^3/uL (4.5-11.0)
[2021-12-20 07:58] LABS: COVID19 -Nasal RAPID Negative (Negative)
[2021-12-20 08:04] LABS: HEMOLYSIS < 15 (0-50); Troponin I 0.016 ng/mL (0.01-0.034)
[2021-12-20 08:31] LABS: Alanine Aminotransferase 17 IU/L (<50); Albumin 4.3 g/dL (3.5-5.0); Albumin Globulin Ratio 1.5 (1.0-2.8); Alkaline Phosphatase 90 U/L (38-126); Aspartate Aminotransferase 28 IU/L (17-59); Bilirubin Total 0.4 mg/dL (0.2-1.3); Blood Urea Nitrogen 40 mg/dL (9-20); Calcium 9.1 mg/dL (8.4-10.2); Carbon Dioxide 27 mmol/L (22-32); Chloride 102 mmol/L (98-107); Estimated Glomerular Filt Rate 23.9 mL/min (>60); Globulin 2.8 g/dL (1.7-4.1); Glucose 201 mg/dL (80-110); Potassium 3.5 mmol/L (3.4-5.1); Sodium 142 mmol/L (137-145); Total Protein 7.1 g/dL (6.3-8.2)
[2021-12-20] MEDS: SODIUM CHLORIDE 0.9% 1,000 ML 1000 ML IV (11:17)
--- NOTE | 2021-12-20 12:37 | DI.RAD.S_ITS ---
PROCEDURE: XR SHOULDER RT 1V INDICATIONS: need Y view please TECHNIQUE: 1 views of the shoulder were acquired. COMPARISON: [facility], CT, CT CHEST ABD PEL WO CON, 12/20/2021, 7:05. [facility], CR, XR SHOULDER RT MIN 2V, 12/20/2021, 6:39. [facility], CR, XR SHOULDER LT MIN 2V, 05/23/2019, 16:27. FINDINGS: Bones: Subtle irregularity at the surgical neck is most consistent with nondisplaced fracture. No dislocations. Visualized ribs appear intact. IMPRESSION: Nondisplaced fracture at the surgical neck. Findings discussed with Dr. Stef Chavez. Dictated by: Bereket Murphy M.D. on 12/20/2021 at 13:10 Approved by: Bereket Murphy M.D. on 12/20/2021 at 13:15
[2021-12-20 12:52] LABS: BUN Creatinine Ratio 15.6 (6-22); Blood Urea Nitrogen 41 mg/dL (9-20); Calcium 9.1 mg/dL (8.4-10.2); Carbon Dioxide 29 mmol/L (22-32); Chloride 101 mmol/L (98-107); Estimated Glomerular Filt Rate 24.3 mL/min (>60); Glucose 196 mg/dL (80-110); HEMOLYSIS < 15 (0-50); Potassium 3.6 mmol/L (3.4-5.1); Sodium 141 mmol/L (137-145)
--- NOTE | 2021-12-20 15:48 | PC.NURSE ---
Day shift: Pt on unit at approx 1545 from ED. C/o rt shoulder pain. VS WNL. RA 97%. Oriented to room and call light. There are no new MD orders at this time.
--- NOTE | 2021-12-20 20:25 | P.HP_ITS ---
History of Present Illness History of Present Illness Date Patient Seen: 12/20/21 Time Patient Seen: 20:25 Chief complaint: fall off ladder Narrative: This is a 71-year-old male with type 2 diabetes mellitus, degenerative joint disease, prior TIA, atrial fibrillation, congestive heart failure, hypertension, hyperlipidemia, GERD who fell off a ladder fracturing his right humeral head yesterday He has a baseline of chronic kidney disease with a creatinine of 1.85 on 01/18/2021 with new evidence now of acute kidney injury with a creatinine of 2.67. He says that his highest creatinine in the past has been about 2.0. He had been ingesting a product called ?kidney complete? until he ran out of it a month ago. A CK level is pending. He had not been lying on the ground or immobilized in any other way since the injury. Orthopedics has reviewed his shoulder x-ray and the conclusion is that he will not be candidate for surgery with a fracture in this location. He had stayed at home last night, planning to go to the [facility] for a root canal today but the pain seemed to worsen this morning so he came to the emergency department instead. He thinks he fell, coming down the ladder, from the lowest level because his pants fell and he turned around to try to lift them up. . Patient History Medical History Constipation GERD (gastroesophageal reflux disease) Heart failure HTN (hypertension) Hypercholesteremia Knee pain Renal disease Family & Social History Social History: household members spouse Prior Living Arrangements House lives independently Yes Safety & Behavioral: Feels Safe in Current Yes Environment Suicidal Ideation Description None Suicide Plan Description No Plan Tobacco & Substance use: Tobacco type cigarettes Smoking Status Former smoker alcohol intake former alcohol intake frequency 0-2 drinks per day Substance Use Type does not use Meds Home Medications and Allergies Home Medications Medication Instructions Recorded Confirmed Type polyethylene glycol 3350 17 17 gm PO QDAYP #0 04/30/13 12/02/21 History gram/dose oral powder (Miralax) allopurinol 300 mg tablet 300 mg PO DAILY #0 04/16/17 12/02/21 History diclofenac sodium 1 % topical gel 1 tj TOPICAL Q4H PRN #0 MDD 16 G 04/16/17 12/02/21 History (Voltaren) (4 doses) doxazosin 8 mg tablet (Cardura) 8 mg PO BEDTIME #0 04/16/17 12/02/21 History sildenafil 100 mg tablet (Viagra) 100 mg PO PRN PRN #0 MDD 100 mg 04/16/17 12/02/21 History artificial 1 spray PO PRN PRN 03/24/19 12/02/21 History saliva(carboxymethylcellulose-electrolytes) spray pump bumetanide 2 mg tablet 2 mg PO BID 03/24/19 12/02/21 History capsaicin 0.025 % topical cream 1 applic TOPICAL PRN PRN 03/24/19 12/02/21 Hi story carboxymethylcellulose 0.5 1 applic OPHTHALMIC (EYE) QID 03/24/19 12/02/21 History %-glycerin 0.9 % (PF) eye drops,dropperette cholecalciferol (vitamin D3) 25 2,000 unit PO DAILY 03/24/19 12/02/21 History mcg (1,000 unit) capsule dexlansoprazole 60 mg 60 mg PO DAILY 03/24/19 12/02/21 History capsule,biphase delayed release fexofenadine 180 mg tablet 180 mg PO DAILY 03/24/19 12/02/21 History fluoride (sodium) 1.1 % dental 1 applic DENTAL DIRECTED 03/24/19 12/02/21 History cream insulin aspart U-100 100 unit/mL See Rx Instructions .ROUTE .COMPLEX 03/24/19 12/02/21 History subcutaneous solution multivitamin with minerals 1 cap PO DAILY 03/24/19 12/02/21 History pregabalin 75 mg capsule 75 mg PO BID 03/24/19 12/02/21 History spironolactone 25 mg tablet 25 mg PO BID 03/24/19 12/02/21 History tolterodine 4 mg capsule,extended 4 mg PO DAILY 03/24/19 12/02/21 History release 24 hr vitamin B complex 1 tab PO DAILY 03/24/19 12/02/21 History chlorhexidine gluconate 0.12 % 15 ml MUCOUS MEMBRANE BID 05/23/19 12/02/21 History mouthwash chlorhexidine gluconate 4 % 1 applic TOPICAL DAILY 05/23/19 12/02/21 History topical liquid cyclobenzaprine 10 mg tablet 10 mg PO TID PRN #30 tab 05/23/19 12/02/21 Rx insulin glargine 100 unit/mL 70 unit SUBCUT QAM 05/23/19 12/02/21 History subcutaneous solution ipratropium 0.5 mg-albuterol 3 mg 1 ea INHALATION DIRECTED 05/23/19 12/02/21 History (2.5 mg base)/3 mL nebulization soln sennosides 8.6 mg-docusate sodium 2 tab PO DAILY 05/23/19 12/02/21 History 50 mg tablet tramadol 50 mg tablet 50 mg PO Q8H PRN #7 tab 05/23/19 12/02/21 Rx lidocaine 5 % topical patch 1 patch TOPICAL DAILY PRN #15 ea 10/21/20 12/02/21 Rx hydrocodone 5 mg-acetaminophen 325 1 tab PO BID PRN #10 tab 10/31/21 12/02/21 Rx mg tablet methocarbamol 500 mg tablet 500 mg PO TID PRN #20 tab 10/31/21 12/02/21 Rx atorvastatin 20 mg tablet 20 mg PO DAILY 12/02/21 History losartan 25 mg tablet 25 mg PO DAILY 12/02/21 12/02/21 History semaglutide (Ozempic) 1 mg SUBCUT QWEEK 12/02/21 12/02/21 History Allergies Allergy/AdvReac Type Severity Reaction Status Date / Time gabapentin Allergy Verified 12/20/21 07:07 Review of Systems Review of Systems Narrative: Positive for shoulder pain and weakness. Negative for fevers, chills, sweats, coughing, abdominal pain, nausea, vomiting, bleeding, diarrhea, dysuria, seizures, rashes, headaches, new allergies. Exam Vital Signs (past 8 hours): - 12/20/21 12:30 12/20/21 13:00 12/20/21 13:30 Temperature Pulse Rate 64 70 67 Respiratory Rate Blood Pressure Pulse Oximetry 99 99 98 12/20/21 13:49 12/20/21 16:30 Temperature 97.6 F Pulse Rate 78 75 Respiratory Rate 21 Blood Pressure 179/72 H 142/61 H Pulse Oximetry 95 95 Oxygen Delivery Method Room Air Oxygen Flow Rate 0 Narrative Exam Narrative: He is alert and oriented x3. No apparent distress. When he moves his right wrist, right elbow and right shoulder he flinches with pain and seems too tight now. Pupils are equally round reactive to light and accommodation. Extraocular muscles are intact. Sclerae are nonicteric Throat looks normal No lymph nodes are felt head, neck, supraclavicular area JVD is less than 6 cm and there is no carotid bruit heard There is no thyromegaly Heart is regular rate and rhythm without murmur Lungs are clear to auscultation bilaterally Abdomen is soft, obese, nontender, no organomegaly. There is a small and reducible umbilical hernia present. Extremities have trace bilateral pitting ankle edema He is tender to palpation of the right elbow and the right shoulder. Neurological exam: Cranial nerves 2-12 test intact There is no tremor Motor function is 5/5 in all extremities with guarding and inability to move much of the right side due to pain. Skin has no rash or jaundice Objective Labs Result Diagrams: 12/20/21 07:30 12/20/21 07:30 Labs: Laboratory Results - last 24 hr 12/20/21 12/20/21 12/20/21 07:29 07:30 07:30 WBC 5.3 RBC 4.05 L Hgb 12.1 L Hct 35.8 L MCV 88.5 MCH 30.0 MCHC 33.9 RDW 14.7 Plt Count 149 L Neut % (Auto) 57.0 Lymph % (Auto) 27.3 [place] % (Auto) 12.5 Eos % (Auto) 2.3 Baso % (Auto) 0.9 Neut # (Auto) 3000 Lymph # (Auto) 1500 [place] # (Auto) 700 Eos # (Auto) 100 Baso # (Auto) 0 Sodium 141 142 Potassium 3.6 3.5 Chloride 101 102 Carbon Dioxide 29 27 BUN 41 H 40 H Creatinine 2.63 H 2.67 H Estimated GFR 24.3 L 23.9 L BUN/Creatinine Ratio 15.6 15.0 Glucose 196 H 201 H Calcium 9.1 9.1 Total Bilirubin 0.4 AST 28 ALT 17 Alkaline Phosphatase 90 Troponin I 0.016 Total Protein 7.1 Albumin 4.3 Globulin 2.8 Albumin/Globulin Ratio 1.5 SARS-CoV-2 (PCR) 12/20/21 07:35 WBC RBC Hgb Hct MCV MCH MCHC RDW Plt Count Neut % (Auto) Lymph % (Auto) [place] % (Auto) Eos % (Auto) Baso % (Auto) Neut # (Auto) Lymph # (Auto) [place] # (Auto) Eos # (Auto) Baso # (Auto) Sodium Potassium Chloride Carbon Dioxide BUN Creatinine Estimated GFR BUN/Creatinine Ratio Glucose Calcium Total Bilirubin AST ALT Alkaline Phosphatase Troponin I Total Protein Albumin Globulin Albumin/Globulin Ratio SARS-CoV-2 (PCR) Negative Assessment & Plan Assessment & Plan narrative: This is a 71-year-old male with type 2 diabetes mellitus, degenerative joint disease, prior TIA, atrial fibrillation, congestive heart failure, hypertension, hyperlipidemia, GERD who fell off a ladder fracturing his right humeral head yesterday He has a baseline of chronic kidney disease with a creatinine of 1.85 on 01/18/2021 with new evidence now of acute kidney injury with a creatinine of 2.67. He says that his highest creatinine in the past has been about 2.0. He had been ingesting a product called ?kidney complete? until he ran out of it a month ago. A CK level is pending. He had not been lying on the ground or im mobilized in any other way since the injury. Acute kidney injury superimposed on chronic kidney disease, present on admission. Active. -baseline 1.85 creatinine 01/18/2021, CKD secondary to hypertension/diabetes -check CK level to rule out occult rhabdomyolysis -hold losartan and other potential nephrotoxins -continue IV hydration at 100 mL/hr saline -recheck creatinine on 12/21, anticipate improvement and possible discharge home at that time. Right humeral head fracture, present on admission. Active. -nondisplaced fracture at the humeral neck -x-ray reviewed/discussed with orthopedics who recommends immobilization and pain control. Not a typically operative location. -occupational therapy evaluation for activities of daily living with these restrictions. -no elbow fracture seen on x-ray Type 2 diabetes mellitus, present on admission. Active. -continue 70 units of glargine daily, aspart significant dosing with each meal per home regimen -monitor blood sugars 4 times a day -holding pregabalin until renal function improves in Congestive heart failure, present on admission. Active. -holding spironolactone, monitor Hyperlipidemia, present on admission. Chronic. -continue atorvastatin Reducible umbilical hernia, present on admission. Chronic. -follow Lovenox for DVT prevention His is his backup decision maker Time Spent With Patient Critical Care time: I spent a total of [] minutes of critical care time on this patient's care today; this time is exclusive of procedural time.
[2021-12-20 21:11] LABS: Creatine Kinase 154 U/L (55-170)
[2021-12-20] MEDS: DOXAZOSIN 4 MG TABLET 8 MG PO (22:55)
[2021-12-20] MEDS: SODIUM CHLORIDE 0.9% 1,000 ML 100 ML IV (23:12)
[2021-12-20] MEDS: CYCLOBENZAPRINE 10 MG TABLET PO (23:15)
[2021-12-20] MEDS: TRAMADOL 50 MG TABLET PO (23:15)
[2021-12-21] MEDS: HYDROMORPHONE 0.5 MG INJ IV ×2 (00:44→22:30)
[2021-12-21 02:45] VITALS: PULSE 74; O2SAT 95
[2021-12-21 05:44] LABS: Add Manual Diff / Slide Review NO; Basophils Absolute Auto 0 /uL (0-100); Basophils Percent Auto 0.5 % (0-2); Eosinophils Absolute Auto 200 /uL (0-450); Eosinophils Percent Auto 5.2 % (2-4); Hematocrit 33.6 % (41-53); Hemoglobin 11.2 g/dL (13.5-17.5); Lymphocytes Absolute Auto 1200 /uL (1100-4500); Lymphocytes Percent Auto 26.8 % (25-40); Mean Corpuscular HGB Conc 33.4 % (30-36); Mean Corpuscular Hemoglobin 29.8 PG (26-34); Mean Corpuscular Volume 89.2 fL (80-100); Monocytes Absolute Auto 400 /uL (0-900); Monocytes Percent Auto 9.5 % (3-14); Neutrophils Absolute Auto 2600 /uL (1500-7000); Platelet Count 129 X10^3/uL (150-400); Red Blood Cell Count 3.77 X10^6/uL (4.5-5.9); Red Cell Distribution Width 14.8 % (11.6-14.8); White Blood Cell Count 4.4 X10^3/uL (4.5-11.0)
[2021-12-21 05:52] LABS: Blood Urea Nitrogen 33 mg/dL (9-20); Calcium 8.8 mg/dL (8.4-10.2); Carbon Dioxide 31 mmol/L (22-32); Chloride 101 mmol/L (98-107); Estimated Glomerular Filt Rate 27.5 mL/min (>60); Glucose 154 mg/dL (80-110); HEMOLYSIS < 15 (0-50); Potassium 4.3 mmol/L (3.4-5.1); Sodium 136 mmol/L (137-145)
--- NOTE | 2021-12-21 07:24 | PM.PN.1 ---
Subjective Subjective Date Patient Seen: 12/21/21 Interval history: He is seen in his room here today to follow-up the right humeral fracture, acute kidney injury, chronic kidney disease, type 2 diabetes mellitus, hypertension and umbilical hernia. His right humeral pain continues to be quite severe with lots of guarding and essentially avoidance of all movement of the shoulder and elbow. On his continuous glucose monitor his blood sugars have been in the mid 100s. His creatinine has dropped from 2.67 down to 2.36. The potassium is 4.3. The CBC is normal. His blood pressure is 152/86. Exam Vital Signs (past 8 hours): - 12/21/21 02:45 Pulse Rate 74 Pulse Oximetry 95 Oxygen Delivery Method Room Air Oxygen Flow Rate 1.5 Narrative Exam Narrative: Alert and oriented x3. Mild distress with any movement of the right arm Heart is regular rate and rhythm without murmur Lungs are clear to auscultation bilaterally Extremities have trace bilateral pitting ankle edema Continued tenderness over the lateral right elbow and upper shoulder/humerus. In Objective Labs Result Diagrams: 12/21/21 05:15 12/21/21 05:15 Labs: Laboratory Results - last 24 hr 12/20/21 12/20/21 12/20/21 07:29 07:30 07:30 WBC 5.3 RBC 4.05 L Hgb 12.1 L Hct 35.8 L MCV 88.5 MCH 30.0 MCHC 33.9 RDW 14.7 Plt Count 149 L Neut % (Auto) 57.0 Lymph % (Auto) 27.3 [place] % (Auto) 12.5 Eos % (Auto) 2.3 Baso % (Auto) 0.9 Neut # (Auto) 3000 Lymph # (Auto) 1500 [place] # (Auto) 700 Eos # (Auto) 100 Baso # (Auto) 0 Sodium 141 142 Potassium 3.6 3.5 Chloride 101 102 Carbon Dioxide 29 27 BUN 41 H 40 H Creatinine 2.63 H 2.67 H Estimated GFR 24.3 L 23.9 L BUN/Creatinine Ratio 15.6 15.0 Glucose 196 H 201 H Calcium 9.1 9.1 Total Bilirubin 0.4 AST 28 ALT 17 Alkaline Phosphatase 90 Total Creatine Kinase Troponin I 0.016 Total Protein 7.1 Albumin 4.3 Globulin 2.8 Albumin/Globulin Ratio 1.5 SARS-CoV-2 (PCR) 0312/20/21 12/21/21 07:35 20:54 05:15 WBC 4.4 L RBC 3.77 L Hgb 11.2 L Hct 33.6 L MCV 89.2 MCH 29.8 MCHC 33.4 RDW 14.8 Plt Count 129 L Neut % (Auto) 58.0 Lymph % (Auto) 26.8 [place] % (Auto) 9.5 Eos % (Auto) 5.2 H Baso % (Auto) 0.5 Neut # (Auto) 2600 Lymph # (Auto) 1200 [place] # (Auto) 400 Eos # (Auto) 200 Baso # (Auto) 0 Sodium Potassium Chloride Carbon Dioxide BUN Creatinine Estimated GFR BUN/Creatinine Ratio Glucose Calcium Total Bilirubin AST ALT Alkaline Phosphatase Total Creatine Kinase 154 Troponin I Total Protein Albumin Globulin Albumin/Globulin Ratio SARS-CoV-2 (PCR) Negative 12/21/21 05:15 WBC RBC Hgb Hct MCV MCH MCHC RDW Plt Count Neut % (Auto) Lymph % (Auto) [place] % (Auto) Eos % (Auto) Baso % (Auto) Neut # (Auto) Lymph # (Auto) [place] # (Auto) Eos # (Auto) Baso # (Auto) Sodium 136 L Potassium 4.3 Chloride 101 Carbon Dioxide 31 BUN 33 H Creatinine 2.36 H Estimated GFR 27.5 L BUN/Creatinine Ratio 14.0 Glucose 154 H Calcium 8.8 Total Bilirubin AST ALT Alkaline Phosphatase Total Creatine Kinase Troponin I Total Protein Albumin Globulin Albumin/Globulin Ratio SARS-CoV-2 (PCR) [facility] Medical History Constipation GERD (gastroesophageal reflux disease) Heart failure HTN (hypertension) Hypercholesteremia Knee pain Renal disease Social History marital status: household members: spouse lives independently: Yes Smoking Status: Former smoker alcohol intake: former Assessment & Plan Assessment & Plan narrative: This is a 71-year-old male with type 2 diabetes mellitus, degenerative joint disease, prior TIA, atrial fibrillation, congestive heart failure, hypertension, hyperlipidemia and GERD who fell off a ladder fracturing his right humeral head yesterday? He has a baseline of chronic kidney disease with a creatinine of 1.85 on 01/18/2021 with new evidence now of acute kidney injury with a creatinine of 2.67.? He says that his highest creatinine in the past has been about 2.0.? He had been ingesting a product called ?kidney complete? until he ran out of it a month ago.? A CK level is pending.? ? He had not been lying on the ground or immobilized in any other way since the injury. Acute kidney injury superimposed on chronic kidney disease, present on admission.? Active. -baseline 1.85 creatinine 01/18/2021, CKD secondary to hypertension/diabetes -check CK level unremarkable at 154, so no rhabdo -holding losartan, spironolactone and other potential nephrotoxins -continue IV hydration at 100 mL/hr saline -recheck creatinine on 12/22, anticipate improvement and possible discharge home at that time. Right humeral head fracture, present on admission.? Active. -nondisplaced fracture at the humeral neck -x-ray reviewed/discussed with orthopedics who recommends immobilization and pain control.? Not a typically operative location.? -occupational therapy evaluation for activities of daily living with these restrictions.? -no elbow fracture seen on x-ray -Sling and NWB on the Right UE Type 2 diabetes mellitus, present on admission.? Active.? -continue 70 units of glargine daily, aspart significant dosing with each meal per home regimen -monitor blood sugars 4 times a day -holding pregabalin until renal function improves Congestive heart failure, present on admission.? Active. -holding spironolactone, monitor Hyperlipidemia, present on admission. Chronic.? -continue atorvastatin Reducible umbilical hernia, present on admission.? Chronic. -follow Lovenox for DVT prevention Disposition is return home, likely 12/22, when his creatinine trend approaches his usual CKD level. His is his backup decision maker Time Spent With Patient Critical Care time: I spent a total of [] minutes of critical care time on this patient's care today; this time is exclusive of procedural time.
[2021-12-21 08:19] VITALS: BP 152/70; PULSE 76; RESP 19; TEMP 36.1; O2SAT 95
[2021-12-21] MEDS: INSULIN LISPRO 100 UNIT/ML 3ML VIAL 30 UNIT SUBCUT (08:56)
[2021-12-21] MEDS: MULTIVITAMIN 1 TABLET 1 TAB PO (09:14)
[2021-12-21] MEDS: PANTOPRAZOLE DR 40 MG TABLET PO (09:14)
[2021-12-21] MEDS: OXYBUTYNIN 5 MG ER TAB 10 MG PO (09:21)
[2021-12-21] MEDS: CHOLECALCIFEROL (VITAMIN D3) 1,000 UNIT TABLET 2000 UNIT PO (09:22)
[2021-12-21] MEDS: LORATADINE 10 MG TABLET PO (09:22)
[2021-12-21] MEDS: ENOXAPARIN 40 MG/0.4 ML SYRINGE SUBCUT (09:22)
[2021-12-21] MEDS: POLYVINYL ALCOHOL DROPS 1 DROPS EYE-BOTH ×4 (09:22→20:47)
[2021-12-21] MEDS: INSULIN GLARGINE 100 UNIT/ML 3ML PEN 70 UNIT SUBCUT (09:23)
[2021-12-21] MEDS: HYDROCODONE/ACET 5/325 TABLET 1 TAB PO ×2 (09:24→20:47)
[2021-12-21] MEDS: SODIUM CHLORIDE 0.9% 1,000 ML 100 ML IV ×2 (10:08→22:29)
--- NOTE | 2021-12-21 10:10 | PC.NURSE ---
Day shift: Prior to insulin given per DEC this AM, the doses were discussed with Dr Dia and Sam in pharmacy by this journalists and other writers. Insulin was given per DEC. Will monitor Pt for any s/s of hypoglycemia.
[2021-12-21 11:39] VITALS: BP 136/58; PULSE 72; RESP 18; TEMP 36.3; O2SAT 95
[2021-12-21] MEDS: INSULIN LISPRO 100 UNIT/ML 3ML VIAL 34 UNIT SUBCUT (12:04)
[2021-12-21] MEDS: LIDOCAINE PATCH 1 EACH ADH..PATCH TOP ×2 (12:31→17:29)
--- NOTE | 2021-12-21 14:46 | PT.IIE ---
Current Diagnoses Acute kidney failure, unspecified (12/20/21) Medical History (Last Reviewed 12/20/21 @ 06:41 by Madeline Mejia MD) Constipation GERD (gastroesophageal reflux disease) Heart failure HTN (hypertension) Hypercholesteremia Knee pain Renal disease Physical Therapy Inpatient Evaluation/Re-Eval M1 PT/OT-IP Prior Functional Status Start: 12/21/21 16:56 Freq: NEEDED Status: Active Protocol: Document 12/21/21 14:46 AB (Rec: 12/21/21 17:37 AB [id number]) Medical Review Prior Functional Status Medical History Reviewed Yes Communication able to make needs known Mobility and Gait pt stated that he is modified independent with all mobilities and ambulation without AD but uses a 4WW for outdoor mobility Social History Household Members spouse Living Arrangements House Number of Floors (Floors) Two Floors Number of Stairs To Enter/Railing? has a chair lift to enter and get to 2nd level bedroom Home Environment Standard Height Toilet,Walk in Shower Home Equipment Four Wheel Walker,Straight Cane,Hand Held Shower,Grab Bars In Shower Additional Social History Comment pt has his spouse at home to assist him M2 PT-IP Current Condition Start: 12/21/21 16:56 Freq: NEEDED Status: Active Protocol: Document 12/21/21 14:46 AB (Rec: 12/21/21 17:37 AB [email or web address]) Physical Therapy Current Condition Current Condition Evaluation Date 12/21/21 Treatment Diagnosis s/p fall s/p R prox humeral fx Onset Date 12/20/21 M3 PT-IP Subjective Start: 12/21/21 16:56 Freq: NEEDED Status: Active Protocol: Document 12/21/21 14:46 AB (Rec: 12/21/21 17:37 AB [email or web address]) Subjective Physical Therapy Visit Type Type Initial Evaluation Visit Start Time 14:46 Visit Stop Time 15:35 Total Visit Minutes 49 Number of DISPUTE COORDINATOR Visits 0 Physical Therapy Visit Comments Patient Comments agreed to do PT Therapy Pain Assessment Pain When Pain Assessed At Rest Pain Present Pain Present Pain Reported Location Right Shoulder Scale Used pain scale not stated Pain Management Techniques Distraction,Modification of Treatment,Re-positioning, Timing of Activity with Medications M4 PT-IP Mobility and Gait Start: 12/21/21 16:56 Freq: NEEDED Status: Active Protocol: Document 12/21/21 14:46 AB (Rec: 12/21/21 17:37 AB [id number]) PT-Bed Mobility Assessment Sit to Supine Sit to Supine Standby Assistance PT-Transfer Assessment Sit to and From Stand Sit to and from Stand Independent Equipment Transfer Assistive Device None,Straight Cane Orthotic/Prosthetic Devices or Brace: Yes Comments Mobility Comments pt sitting on chair upon PT arrival. informed pt regarding R shoulder fx and precautions and doctor's order for a sling and PT to fit pt with sling. Asked pt regarding home set up and PLOF . Pt stated that he will need a hand held shower, long handled sponge and a device for him to be able to clean up when he uses the toilet. Informed pt that the hospital does not have those in house and that pt has to purchase from a [employer] or for the hand held shower form a hardware. pt stated that PT has to call [facility] for all the equipement to be provided and covered for him. Informed pt that he can purchase the equipement and have [facility] reimbursed him as PT does not usually call [facility]/ insurance for reimbursement of equipement. also stated to pt that he will need to use his L hand to do the ADLs for now due to RUE precautions. pt did not agreed and stated that he is a R handed person and that is why he needs the equipement. reminded pt regarding R shoulder precautions and healing process. provided and fitted pt with a sling and showed the nurse. pt completed sit to stand SBA and ambulated in room without AD SBA with antalgic gait . pt presents with bilateral genu varum. pt stated that he was supposed to have knee surgeries but did not push through. stated that he is to the point where he will need an electric scooter but he will not ask the hospital for that since [facility]. informed pt regarding safety and use of SPC a this time for safety. pt stated that he does not use a SPC and uses a 4WW. informed pt that due to his R shoulder fx, he cannot use a 4WW. pt agreed to ambulate in room usng SPC and completed SBA. pt is aware of SPC use upon d/c. pt refused to do bed mobility. pt then stated that all the information regarding his equipement needs should be faxed to his manager of case. also stated that the tiles/ chadwick at his house should be replaced because it is hard for him to walk and should be on PT's note so that [facility] will cover. Informed data center manager regarding pt's requests for equipment needs and to faxed to his [facility] manager of case. Pt will also need homehealth PT to complete home assessment for equipment needs or environmental adaptations needed. Observed pt this afternoon with nursing and pt without his sling on. nurse stated that pt refused the sling and has been getting up to use the toilet by himself. able to do sit to spine SBA. Gait Assessment Gait Gait Assistance Required: Standby Assistance Distance (Feet) 30 Able to Maintain Weight Bearing Status Yes During Gait Assistive Devices Assistive Device None,Straight Cane Orthotic/Prosthetic Devices or Brace: Yes Gait Deviations General Gait Pattern Antalgic,Decreased Stride Length,Decreased Feet Clearance,Step-to Gait Factors Limiting Gait Function Factors Limiting Gait Function Decreased Activity Tolerance, Decreased Strength,Limited Range of Motion,Pain,Poor Balance,Poor Safety Awareness PT-Balance Assessment Sitting Balance and Reactions Static Sitting Balance Ability Normal Dynamic Sitting Balance Ability Good Standing Balance and Reactions Static Standing Balance Ability Good Dynamic Standing Balance Ability Good Device Used SPC M5 PT-IP Objective Assessments Start: 12/21/21 16:56 Freq: NEEDED Status: Active Protocol: Document 12/21/21 14:46 AB (Rec: 12/21/21 17:37 AB [id number]) Orientation Orientation/Cognition Level of Alertness Alert Orientation Name,Place,Situation Safety Awareness Decreased Safety Awareness Memory Description Short Term Impaired Gross Range of Motion Upper Extremity ROM Assessment Right Impaired Impairments RUE sling Lower Extremity ROM Assessment Within Functional Limits Strength Lower Extremity Strength Hip 4-/5 Knee 4-/5 Muscle Tone Muscle Tone WNL Yes M6 PT-IP Treatment Start: 12/21/21 16:56 Freq: NEEDED Status: Active Protocol: Document 12/21/21 14:46 AB (Rec: 12/21/21 17:37 AB [id number]) Physical Therapy Treatment Education Education Provided Precautions,Weight Bearing Status,Safety M7 PT-IP Assessment and Plan Start: 12/21/21 16:56 Freq: NEEDED Status: Active Protocol: Document 12/21/21 14:46 AB (Rec: 12/21/21 17:37 AB [id number]) PT Summary Assessment and Plan Potential Rehabilitation Potential Fair Status of Condition at Evaluation Stable Summary Assessment Summary PT eval completed. Pt s/p fall and sustained a R prox humeral fx. pt has his spouse to assist him at home. pt directs his own care and educated on safety and precautions of R shoulder. data center manager also informed regarding pt's equipement needs and PT can only recommend equipement base on pt's diagnosis but OT will be able to make recommendations better when ADL assessment is completed. OT is not available today to complete evaluation. informed manager of case regarding HHPT for home assessment as pt has other equipement requests that PT is not able to recommend unless home assessment is conducted. pt able to ambulate without AD SBA but steadier with ambulation using SPC and pt is aware of recommendation but pt is hesitant to use. Pt is aware of safety and understood information provided. No further PT intervention is required at this time and OT eval will be conducted when available to determine specific equipement needs depending on ADL assessment. Frequency of Treatment Frequency Of Treatment Discharge Precautions Shoulder Precautions Sling Weight Bearing Status Weight Bearing Status Non-Weight Bearing Allowed Weight Bearing Amount (enter % RUE NWB or #) (%) Recommendations To Nursing Amount of Assist Needed Standby Assistance Discharge Recommendations PT Discharge Recommendations Home with Assistance,Home Health Transportation Needs at Discharge Private Vehicle
--- NOTE | 2021-12-21 14:54 | CM.DANOTE ---
Patient is a 71 yo male who was admitted on 12/20/21 for Fall Off Ladder. Pt has [facility] [employer] for insurance and his PCP is Luis Collier. EMR was reviewed. Per MD, pt with a hx of diabetes, CHF, AFIB and was working on his ladder when he got tangled up and fell and was admitted for shoulder fx. PT ordered and pending since OT initially ordered for shoulder but OT not available this weekend. Per Ortho, pt's shoulder fx non-operable and to be immobilized and pain management. Per RN, pt has had some significant pain and pain management issues today. Attempting better pain control. SW met briefly bedside with pt and explained role as pt clearly in discomfort and he confirms he lives with spouse in [place] and is retired and independent with ADL's at baseline. Pt's spouse is home and can assist if needed and pt is hopeful for home maybe tomorrow if pain better controlled. Plan: SW to follow closely for PT eval and recommendations to confirm plan of home with spouse assist when pain better controlled. SW to follow for any further identified needs. BREANN Kaur Discharge Planning/Care Management CM Discharge Assessment Start: 12/21/21 14:52 Freq: Status: Active Protocol: Document 12/21/21 14:52 BF (Rec: 12/21/21 14:54 [id number]) Discharge Planning Assessment Assigned Manager Internship BREANN Starr DPOA/Assigned Designee Name spouse [place] Contact Information [phone] Advance Directives? No Advance Directives on File No History Provided By Patient,Medical Record Has Patient been admitted in last 30 No days? Prior Living Arrangements House Household Members spouse Type of transporation used prior to Drives own vehicle admit Independent with ADL's Yes Is patient alert and oriented? Yes Caregiver for Another No Patient/Family Preference Home with Home Health,OP PT Therapy Comment HH vs outpt PT Barriers to Discharge No Discharge Plan Home Community Services Occupational Therapy Transportation Arrangement spouse can transport at d/c Referrals Initiated None needed Additional Comment Pending further PT/OT, OT may not be available this week so PT attempting to work with pt to confirm safe d/c home and any needs Whiteboard Updated in Patient Room with Yes name and ext. # of Manager Internship Review Status In Process Please Provide Date Initial DC 12/21/21 Assessment Was Performed Next Review Type Continued Stay Review
--- NOTE | 2021-12-21 16:06 | PC.NURSE ---
Day shift: Pt fitted with sling on Rt arm per MD orders and Pt states It does not fit right. It is too small. Sling is not on and Pt is asleep at this time (1600). Pt also stated I have a sling at home that I can use. Pt has also been asking When do I get to go home? today (Has asked 4 times). Sitting in chair with chair alarm on and call light in reach.
[2021-12-21] MEDS: TRAMADOL 50 MG TABLET PO (17:30)
[2021-12-21 20:05] VITALS: BP 150/76; PULSE 74; RESP 20; TEMP 37; O2SAT 95
[2021-12-21 20:48] VITALS: BP 136/58; PULSE 72
[2021-12-21] MEDS: DOXAZOSIN 4 MG TABLET 8 MG PO (20:48)
[2021-12-22] MEDS: CYCLOBENZAPRINE 10 MG TABLET PO (03:13)
[2021-12-22] MEDS: TRAMADOL 50 MG TABLET PO (03:13)
[2021-12-22 04:05] VITALS: PULSE 75; RESP 16
--- NOTE | 2021-12-22 04:13 | PC.NURSE ---
Pt's support person (daughter- Claudette) visited, encouraged pt to wear sling. Pt allowed sling for approximately 3 hours and then removed it, reporting discomfort. Pt educated on sling usage and plan of care. Continues to adamantly refuse. Will continue to encourage adherence to POC.
[2021-12-22 07:23] LABS: Add Manual Diff / Slide Review NO; Basophils Absolute Auto 0 /uL (0-100); Basophils Percent Auto 0.7 % (0-2); Eosinophils Absolute Auto 200 /uL (0-450); Eosinophils Percent Auto 6.2 % (2-4); Lymphocytes Absolute Auto 1000 /uL (1100-4500); Lymphocytes Percent Auto 29.2 % (25-40); Mean Corpuscular HGB Conc 33.3 % (30-36); Mean Corpuscular Hemoglobin 29.7 PG (26-34); Mean Corpuscular Volume 89.2 fL (80-100); Monocytes Absolute Auto 400 /uL (0-900); Monocytes Percent Auto 10.5 % (3-14); Neutrophils Absolute Auto 1800 /uL (1500-7000); Neutrophils Percent Auto 53.4 % (50-75); Platelet Count 129 X10^3/uL (150-400); Red Cell Distribution Width 14.6 % (11.6-14.8); White Blood Cell Count 3.4 X10^3/uL (4.5-11.0)
[2021-12-22 07:40] LABS: BUN Creatinine Ratio 12.8 (6-22); Blood Urea Nitrogen 25 mg/dL (9-20); Calcium 8.8 mg/dL (8.4-10.2); Carbon Dioxide 28 mmol/L (22-32); Chloride 105 mmol/L (98-107); Estimated Glomerular Filt Rate 34.1 mL/min (>60); Glucose 114 mg/dL (80-110); HEMOLYSIS < 15 (0-50); Magnesium 2.3 mg/dL (1.6-2.3); Potassium 3.9 mmol/L (3.4-5.1); Sodium 138 mmol/L (137-145)
[2021-12-22] MEDS: SODIUM CHLORIDE 0.9% 1,000 ML 100 ML IV (08:25)
[2021-12-22 08:50] VITALS: O2SAT 95
[2021-12-22] MEDS: INSULIN GLARGINE 100 UNIT/ML 3ML PEN 70 UNIT SUBCUT (09:10)
[2021-12-22] MEDS: OXYBUTYNIN 5 MG ER TAB 10 MG PO (09:10)
[2021-12-22] MEDS: CHOLECALCIFEROL (VITAMIN D3) 1,000 UNIT TABLET 2000 UNIT PO (09:10)
[2021-12-22] MEDS: MULTIVITAMIN 1 TABLET 1 TAB PO (09:10)
[2021-12-22] MEDS: LORATADINE 10 MG TABLET PO (09:10)
[2021-12-22] MEDS: PANTOPRAZOLE DR 40 MG TABLET PO (09:10)
[2021-12-22] MEDS: POLYVINYL ALCOHOL DROPS 1 DROPS EYE-BOTH (09:11)
[2021-12-22] MEDS: ENOXAPARIN 40 MG/0.4 ML SYRINGE SUBCUT (09:12)
[2021-12-22] MEDS: INSULIN LISPRO 100 UNIT/ML 3ML VIAL 30 UNIT SUBCUT (09:15)
[2021-12-22 11:26] VITALS: BP 161/81; PULSE 89; RESP 19; TEMP 35.7; O2SAT 94
--- NOTE | 2021-12-22 12:44 | PC.NURSE ---
Day shift: Pt agreable to having sling in place at this time. Pt's daughter in room for support and she will be here for d/c teachings.
--- NOTE | 2021-12-22 13:25 | PC.NURSE ---
Pt discharged at 1315. This nurse provided teaching and education to pt and daughter regarding home fall safety, sling use, humeral fracture. Rx provided to daughter. Pt left on a wheelchair.
--- NOTE | 2021-12-23 13:20 | PM.DS.1 ---
History of Present Illness History of Present Illness Chief complaint: fall off ladder Narrative: Per Dr. Dia: This is a 71-year-old male with type 2 diabetes mellitus, degenerative joint disease, prior TIA, atrial fibrillation, congestive heart failure, hypertension, hyperlipidemia, GERD who fell off a ladder fracturing his right humeral head yesterday? He has a baseline of chronic kidney disease with a creatinine of 1.85 on 01/18/2021 with new evidence now of acute kidney injury with a creatinine of 2.67.? He says that his highest creatinine in the past has been about 2.0.? He had been ingesting a product called ?kidney complete? until he ran out of it a month ago.? A CK level is pending.? ? He had not been lying on the ground or immobilized in any other way since the injury.? Orthopedics has reviewed his shoulder x-ray and the conclusion is that he will not be candidate for surgery with a fracture in this location.? He had stayed at home last night, planning to go to the [facility] for a root canal today but the pain seemed to worsen this morning so he came to the emergency department instead.? He thinks he fell, coming down the ladder, from the lowest level because his pants fell and he turned around to try to lift them up. Discharge Providers Provider Date of admission: 12/20/21 14:49 Discharge Date: 12/22/21 Primary care physician: Luis Collier MD Consults: 12/20/21 20:20 Consult to Occupational Therapy Evaluate & Treat Comment: Physician Instructions: Evaluate and treat 12/21/21 10:49 Consult to Physical Therapy Evaluate & Treat Comment: Physician Instructions: Evaluate and Treat 12/21/21 17:48 Consult to Pharmacy Routine Comment: Please enter patients own glucose tablet order Discharge provider: Ryan Pedraza MD Summary Hospital Course Discharge Diagnosis: 1. OSMEL on CKD stage 3 2. Right humeral head fracture 3. Type 2 Diabetes on insulin 4. Chronic CHF, EF unknown 5. Hyperlipidemia Hospital Course: Mr. Guaman came in to the hospital after a mechanical fall with a right humeral fracture. Ortho said no indication for surgery and he was recommended to stay in a sling, though at times patient refused to wear it. He initially came in with OSMEL but this improved with IV fluids. He was improved on day of discharged, with creatinine below 2 and near baseline. He had a referral to ortho placed on discharge to ensure he has good healing of his fracture and he was discharged with a sling Exam Vital Signs (past 8 hours): Oxygen Delivery Method Room Air Oxygen Flow Rate 0 Narrative Exam Narrative: GEN: no acute distress CV: regular rate and rhythm without murmur PULM: clear to auscultation bilaterally EXT: trace bilateral pitting ankle edema, tenderness over the right elbow and upper shoulder Objective Labs Result Diagrams: 12/22/21 07:05 12/22/21 07:05 [facility] Medical History Constipation GERD (gastroesophageal reflux disease) Heart failure HTN (hypertension) Hypercholesteremia Knee pain Renal disease Social History marital status: household members: spouse lives independently: Yes Smoking Status: Former smoker alcohol intake: former Discharge Plan Discharge Plan Patient Disposition: Home Discharge orders & Medications Prescriptions: New oxycodone 5 mg tablet 5 mg PO Q6H PRN (Reason: pain) Qty: 14 0RF Continued polyethylene glycol 3350 [Miralax] 119 GM powder 17 gm PO QDAYP Qty: 0 0RF diclofenac sodium [Voltaren] 1 % gel 1 tj Topical Q4H MDD 16 G (4 doses) PRN (Reason: osteoarthritis) Qty: 0 0RF sildenafil [Viagra] 100 MG tablet 100 mg PO PRN MDD 100 mg PRN (Reason: Sexual Activity) Qty: 0 0RF Label Comments: hasn't used in 'months' allopurinol 300 MG tablet 300 mg PO DAILY Qty: 0 0RF doxazosin [Cardura] 8 MG tablet 8 mg PO BEDTIME Qty: 0 0RF bumetanide 2 mg tablet 2 mg PO BID 0RF tolterodine 4 mg capsule,extended release 24hr 4 mg PO DAILY 0RF fexofenadine 180 mg tablet 180 mg PO DAILY 0RF spironolactone 25 mg tablet 25 mg PO BID 0RF cholecalciferol (vitamin D3) 1,000 unit capsule 2,000 unit PO DAILY 0RF fluoride (sodium) 1.1 % cream 1 applic dental DIRECTED 0RF dexlansoprazole 60 mg capsule,biphase delayed releas 60 mg PO DAILY 0RF insulin aspart U-100 100 unit/mL Solution See Rx Instructions .ROUTE .COMPLEX 0RF Rx Instructions: 1 dose subcutaneously ;24 ac breakfast, 24 at noon, 24 at bedtime. The above doses per Khris today 12/21/21 at approx 1535. vitamin B complex Tablet 1 tab PO DAILY 0RF capsaicin 0.025 % cream 1 applic topical PRN PRN (Reason: pain) 0RF pregabalin 75 mg capsule 75 mg PO BID 0RF carboxymethylcell-glycerin(PF) 0.5-0.9 % Dropperette 1 applic ophthalmic (eye) QID 0RF multivitamin with minerals Capsule 1 cap PO DAILY 0RF artificial saliva (cmce-lytes) [place] With Pump 1 spray PO PRN PRN (Reason: Dry Mouth) 0RF ipratropium-albuterol 0.5 mg-3 mg(2.5 mg base)/3 mL Solution For Nebulization 1 ea inhalation DIRECTED 0RF Label Comments: hasn't used for a couple months insulin glargine 100 unit/mL Solution 70 unit SUBCUT QAM 0RF Rx Instructions: Per Pt. Takes 35units left side ABD and the 0ther 35units on rt side per Pt at approx 1535 12/21/21 sennosides-docusate sodium 8.6-50 mg Tablet 2 tab PO DAILY 0RF chlorhexidine gluconate 4 % Liquid 1 applic TOPICAL DAILY 0RF Rx Instructions: to bumps on back of head chlorhexidine gluconate 0.12 % Mouthwash 15 ml MUCOUS MEMBRANE BID 0RF Rx Instructions: swish for 30 seconds and spit. after breakfast and at bedtime. do not eat or drink for at least one hour after use. cyclobenzaprine 10 mg tablet 10 mg PO TID PRN (Reason: muscle spasm) Qty: 30 0RF tramadol 50 mg tablet 50 mg PO Q8H PRN (Reason: pain) Qty: 7 0RF Label Comments: Doesn't take regularly lidocaine 5 % adhesive patch,medicated 1 patch topical DAILY PRN (Reason: pain) Qty: 15 0RF Rx Instructions: leave on most painful area for up to 12 hrs methocarbamol 500 mg tablet 500 mg PO TID PRN (Reason: muscle spasm) Qty: 20 0RF hydrocodone-acetaminophen 5-325 mg tablet 1 tab PO BID PRN (Reason: pain) Qty: 10 0RF atorvastatin 20 mg tablet 20 mg PO DAILY 0RF losartan 25 mg tablet 25 mg PO DAILY 0RF Ozempic 0.25 mg or 0.5 mg(2 mg/1.5 mL) Pen Injector 1 mg SUBCUT QWEEK 0RF Rx Instructions: Takes every Thursday. Per Pt 12/21/21 total dose 1.5mg Follow up/Referrals: Luis Collier MD [Primary Care Provider] - Rodolfo Nickerson MD [Physician] - (fall and humeral fracture, follow up) Visit Report/Discharge Packet Instructions: How to Use a Sling, Acute Kidney Injury, How to Prevent Falls, DI for Humeral Fracture Discharge Data Primary Care Provider: Luis Collier
== END 2021-12-22 13:15 | disposition home or self-care (01) | DRG 683 ==
LOC: ED 08:41 → AC 14:51
PROVIDERS: Emergency Medicine; Family Medicine; Nurse Practitioner Family; Admitting Provider Internal Medicine; Emergency Provider Emergency Medicine; PCP Student in an Organized Health Care Education/Training Program; Referring Provider Emergency Medicine; Visit Provider Internal Medicine
DX: N17.9 Acute kidney failure, unspecified (principal); S42.214A Unspecified nondisplaced fracture of surgical neck of right humerus, initial encounter for closed fracture; I13.0 Hypertensive heart and chronic kidney disease with heart failure and stage 1 through stage 4 chronic kidney disease, or unspecified chronic kidney disease; I50.9 Heart failure, unspecified; E11.22 Type 2 diabetes mellitus with diabetic chronic kidney disease; E78.5 Hyperlipidemia, unspecified; N18.30 Chronic kidney disease, stage 3 unspecified; K21.9 Gastro-esophageal reflux disease without esophagitis; M54.2 Cervicalgia; M54.50 Low back pain, unspecified; M25.511 Pain in right shoulder; R20.2 Paresthesia of skin; W11.XXXA Fall on and from ladder, initial encounter; Z87.891 Personal history of nicotine dependence; Z79.4 Long term (current) use of insulin; Z20.822 Contact with and (suspected) exposure to COVID-19
CPT/HCPCS: 36415; 36592; 70450; 71045; 71250; 72125; 72170; 73020; 73030; 73080; 74176; 80048; 80053; 82550; 82962; 83735; 84484; 85025; 87635; 96374; 97161; 97530; 99284; C9803; J1170; J1650; J1815; J2405

== ENCOUNTER 2022-03-22 12:00 | Emergency (ER) | payer OTHER, SELFPAY ==
[2021-12-20 17:44] VITALS: BMI 31.1
[2022-03-22 12:36] VITALS: BP 176/79; PULSE 86; RESP 22; TEMP 36.6; O2SAT 97
--- NOTE | 2022-03-22 13:03 | ED.FALL ---
HPI - Fall General Chief Complaint: Fall Stated Complaint: tripped over rebar*extreme all over body pain Time Seen by Provider: 03/22/22 12:31 Source: patient, family and old records reviewed Mode of arrival: Family Vehicle Limitations: no limitations History of Present Illness HPI Narrative: This is a 71-year-old male on Eliquis for atrial fibrillation, diabetes, CHF, renal disease, prior TIA with multiple musculoskeletal complaints after a fall. Patient was ambulating caring objects when he tripped on a piece of rebar protruding from the ground. Patient states this occurred either or Thursday, 2-3 days ago. He states he hit his head, he has headache, neck pain, of significant right shoulder pain with any kind of movement he complains of some elbow pain as well. He denies any chest or rib pain. He denies abdominal pain he has quite a bit of pain in his right knee. Patient states he was able to ambulate for the 1st 2 days but symptoms have continued to worsen. And now he is not able to weight bear and is significantly uncomfortable. He denies loss of consciousness. Denies any shortness of breath. No nausea or vomiting. No urinary frequency or incontinence. He has some chronic neuropathy but has not appreciated new numbness or tingling. Patient did take a pain pill last night and has had increasing discomfort. He has reported history of allergy to gabapentin. Related Data Home Medications Medication Instructions Recorded Confirmed polyethylene glycol 3350 17 17 gm PO QDAYP constipation ##0 04/30/13 12/21/21 gram/dose oral powder (Miralax) allopurinol 300 mg tablet 300 mg PO DAILY ##0 04/16/17 12/21/21 diclofenac sodium 1 % topical gel 1 tj topical Q4H PRN 04/16/17 12/21/21 (Voltaren) osteoarthritis ##0 doxazosin 8 mg tablet (Cardura) 8 mg PO BEDTIME ##0 04/16/17 12/21/21 sildenafil 100 mg tablet (Viagra) 100 mg PO PRN PRN Sexual Activity 04/16/17 12/21/21 ##0 artificial 1 spray PO PRN PRN Dry Mouth 03/24/19 12/21/21 saliva(carboxymethylcellulose-electrolytes) spray pump bumetanide 2 mg tablet 2 mg PO BID 03/24/19 12/21/21 capsaicin 0.025 % topical cream 1 applic topical PRN PRN pain 03/24/19 12/21/21 carboxymethylcellulose 0.5 1 applic ophthalmic (eye) QID 03/24/19 12/21/21 %-glycerin 0.9 % (PF) eye drops,dropperette cholecalciferol (vitamin D3) 25 2,000 unit PO DAILY 03/24/19 12/21/21 mcg (1,000 unit) capsule dexlansoprazole 60 mg 60 mg PO DAILY 03/24/19 12/21/21 capsule,biphase delayed release fexofenadine 180 mg tablet 180 mg PO DAILY 03/24/19 12/21/21 fluoride (sodium) 1.1 % dental 1 applic dental DIRECTED 03/24/19 12/21/21 cream insulin aspart U-100 100 unit/mL See Rx Instructions .Route .COMPLEX 03/24/19 12/21/21 subcutaneous solution multivitamin with minerals 1 cap PO DAILY 03/24/19 12/21/21 pregabalin 75 mg capsule 75 mg PO BID 03/24/19 12/21/21 spironolactone 25 mg tablet 25 mg PO BID 03/24/19 12/21/21 tolterodine 4 mg capsule,extended 4 mg PO DAILY 03/24/19 12/21/21 release 24 hr vitamin B complex 1 tab PO DAILY 03/24/19 12/21/21 chlorhexidine gluconate 0.12 % 15 ml mucous membrane BID 05/23/19 12/21/21 mouthwash chlorhexidine gluconate 4 % 1 applic topical DAILY 05/23/19 12/21/21 topical liquid insulin glargine 100 unit/mL 70 unit SUBCUT QAM 05/23/19 12/21/21 subcutaneous solution ipratropium 0.5 mg-albuterol 3 mg 1 ea inhalation DIRECTED 05/23/19 12/21/21 (2.5 mg base)/3 mL nebulization soln sennosides 8.6 mg-docusate sodium 2 tab PO DAILY 05/23/19 12/21/21 50 mg tablet atorvastatin 20 mg tablet 20 mg PO DAILY 12/02/21 12/21/21 losartan 25 mg tablet 25 mg PO DAILY 12/02/21 12/21/21 semaglutide 0.25 mg or 0.5 mg (2 1 mg SUBCUT QWEEK 12/02/21 12/21/21 mg/1.5 mL) subcutaneous pen injector (AppMakr) Previous Rx's Medication Instructions Recorded cyclobenzaprine 10 mg tablet 10 mg PO TID PRN muscle spasm #30 05/23/19 tabs tramadol 50 mg tablet 50 mg PO Q8H PRN pain #7 tabs 05/23/19 lidocaine 5 % topical patch 1 patch topical DAILY PRN pain #15 10/21/20 ea hydrocodone 5 mg-acetaminophen 325 1 tab PO BID PRN pain #10 tabs 10/31/21 mg tablet methocarbamol 500 mg tablet 500 mg PO TID PRN muscle spasm #20 10/31/21 tabs oxycodone 5 mg tablet 5 mg PO Q6H PRN pain #14 tabs 12/22/21 cyclobenzaprine 10 mg tablet 10 mg PO TID PRN muscle spasm #10 03/22/22 tabs hydrocodone 5 mg-acetaminophen 325 1 tab PO Q6H PRN pain #10 tabs 03/22/22 mg tablet Allergies Allergy/AdvReac Type Severity Reaction Status Date / Time gabapentin Allergy Verified 03/22/22 13:01 Review of Systems Review of Systems ROS Unobtainable: All systems reviewed & are unremarkable except as noted in HPI and below Patient History Medical History Constipation GERD (gastroesophageal reflux disease) Heart failure HTN (hypertension) Hypercholesteremia Knee pain Renal disease Social History marital status: household members: spouse lives independently: Yes Smoking Status: Former smoker alcohol intake: former Smoking Status: Former smoker tobacco type: cigarettes alcohol intake frequency: 0-2 drinks per day Substance Use Type: does not use Exam Narrative Exam Narrative: GEN:Patient appears in moderate distress. HEAD: No evidence of trauma, no raccoon/Desai sign. NECK: Nontender, painless range of motion, trachea midline Positive for Nexus criteria, there is no midline line tenderness, positive for distracting injury, no altered mental status, neuro deficit, recent EtOH. EYES: PERRLA, EOMI ENT: External inspection normal, trachea is midline, TM's are normal no hemotypanum, Nares are clear, no septal hematoma, no dental or oral injury, airway is normal and with normal occlusion, No bony tenderness RESP: Chest is nontender and has symmetric movement, no ecchymosis, breath sounds are normal no crackles, wheezes or rales CVS: Heart sounds are normal, no murmur noted, No JVD. ABG/GI: Nontender, soft, normal bowel sounds, no distention, no organomegaly, pelvic rock is negative NEURO: Oriented AOx3, neuro is grossly intact, sensation and motor is normal all 4 extremities moving, cranial nerves II through XII are intact, GCS is 15 PSYCH: Normal mood and affect SKIN: Intact, warm and dry, no crepitus and without decubitus BACK: Patient has some lower lumbar back pain palpation L3-L4. Generalized discomfort bilaterally in the lateral muscle. Patient also has some spasm. CVA tenderness, no vertebral tenderness, no step-off's, no crepitus EXT: Atraumatic, hips are nontender. Patient has some mild pain over the tibial plateau. No other bony pain on examination of the lower extremities. Upper extremities patient has some discomfort over the right elbow with palpation as well as the right shoulder over the AC joint. No ecchymosis, deformity. Patient appears to have good range of motion but is quite painful with movement at the shoulder. No pedal edema, normal color and temperature, normal range of motion of extremities with normal tendon exam, 2+ pulses in all four extremities Initial Vital Signs Initial Vital Signs: Vital Signs Temperature 98 F 03/22/22 12:36 Pulse Rate 86 03/22/22 12:36 Respiratory Rate 22 03/22/22 12:36 Blood Pressure 176/79 H 03/22/22 12:36 Pulse Oximetry 97 03/22/22 12:36 Oxygen Delivery Method 03/22/22 12:36 Scores GCS [place] coma scale eye opening: Spontaneous [place] coma scale verbal response: Orientated Ron coma scale motor response: Obey commands Ron coma scale total score: 15 Course Orders Ordered: ED Orders 03/22/22 13:04 CT cervical spine wo con Stat CT head/brain wo con Stat XR chest 1V Stat XR elbow RT min 3V Stat XR knee LT 3V Stat XR shoulder RT min 2V Stat EKG-12 Lead Stat 03/22/22 13:05 US abdomen complete Stat 03/22/22 13:10 CT lumbar spine wo con Stat 03/22/22 13:20 Complete Blood Count AUTO DIFF Stat Comprehensive Metabolic Panel Stat Ethanol (ETOH) Stat Lipase Stat Partial Thromboplastin Time Stat Prothrombin Time INR Stat Type and Screen Stat Discontinued Medications Morphine Sulfate (Morphine 4 Mg/Ml Inj) 4 mg IV NOW ONE Stop: 03/22/22 13:05 Last Admin: 03/22/22 13:25 Dose: 4 mg Documented By: MC Morphine Sulfate (Morphine 4 Mg/Ml Inj) 4 mg IV NOW ONE Stop: 03/22/22 14:45 Last Admin: 03/22/22 15:02 Dose: 4 mg Documented By: AT Ondansetron HCl (Ondansetron 4 Mg/2 Ml Inj) 4 mg IV NOW ONE Stop: 03/22/22 13:05 Last Admin: 03/22/22 13:25 Dose: 4 mg Documented By: Reevaluation(s) Reevaluation #1: Recheck patient's pain is improved but still uncomfortable. He and I reviewed all of his imaging and finding today he did have shoulder injury with fracture in December. He was in sling and was not operative. This is the same location that his pain is in today there is no obvious x-ray changes but recommended sling he defers at this time but states he can easily get 1 [id number]. Patient and I discussed pain manic judgment, he has taken [place] in the past found helpful but is out. He may benefit from muscle relaxer. Also reviewed his labs which appears close to baseline. Patient's fall have mostly been mechanical twice he had his pants fell down 1 he tripped over his pants, the other his pants fell down while on a ladder and today he tripped over a piece of rebar. Time: 16:31 Vital Signs Vital signs: Vital Signs - 8 hr 03/22/22 17:04 Temperature 98.3 F Pulse Rate 88 Respiratory Rate 18 Blood Pressure 165/70 H Pulse Oximetry 97 Oxygen Delivery Method Room Air MDM - Fall Lab Data Result diagrams: 03/22/22 13:20 03/22/22 13:20 Labs: Lab Results 03/22/22 03/22/22 03/22/22 Range/Units 13:20 13:20 13:20 WBC 5.6 (4.5-11.0) X10^3/uL RBC 4.32 L (4.5-5.9) X10^6/uL Hgb 13.1 L (13.5-17.5) g/dL Hct 37.8 L (41-53) % MCV 87.4 (80-100) fL MCH 30.3 (26-34) PG MCHC 34.7 (30-36) % RDW 15.6 H (11.6-14.8) % Plt Count 122 L (150-400) X10^3/uL Neut % (Auto) 78.5 H (50-75) % Lymph % (Auto) 12.5 L (25-40) % [place] % (Auto) 7.1 (3-14) % Eos % (Auto) 1.2 L (2-4) % Baso % (Auto) 0.7 (0-2) % Neut # (Auto) 4400 (0072-9823) /uL Lymph # (Auto) 700 L (2078-9092) /uL [place] # (Auto) 400 (0-900) /uL Eos # (Auto) 100 (0-450) /uL Baso # (Auto) 0 (0-100) /uL PT 12.3 (10.1-12.7) SECONDS INR 1.1 (0.9-1.3) APTT 32 (26.4-36.2) SECONDS Sodium 136 L (137-145) mmol/L Potassium 3.7 (3.4-5.1) mmol/L Chloride 96 L (98-107) mmol/L Carbon Dioxide 30 (22-32) mmol/L BUN 43 H (9-20) mg/dL Creatinine 1.99 H (0.66-1.25) mg/dL Estimated GFR 36 L (>60) mL/min BUN/Creatinine Ratio 21.6 (6-22) Glucose 152 H (80-110) mg/dL Calcium 9.3 (8.4-10.2) mg/dL Total Bilirubin 0.6 (0.2-1.3) mg/dL AST 21 (17-59) IU/L ALT 24 (<50) IU/L Alkaline Phosphatase 85 (38-126) U/L Total Protein 7.1 (6.3-8.2) g/dL Albumin 4.3 (3.5-5.0) g/dL Globulin 2.8 (1.7-4.1) g/dL Albumin/Globulin Ratio 1.5 (1.0-2.8) Lipase 223 (23-300) U/L Ethyl Alcohol < 10 ( - 10) mg/dL Blood Type Antibody Screen 03/22/22 Range/Units 13:20 WBC (4.5-11.0) X10^3/uL RBC (4.5-5.9) X10^6/uL Hgb (13.5-17.5) g/dL Hct (41-53) % MCV (80-100) fL MCH (26-34) PG MCHC (30-36) % RDW (11.6-14.8) % Plt Count (150-400) X10^3/uL Neut % (Auto) (50-75) % Lymph % (Auto) (25-40) % [place] % (Auto) (3-14) % Eos % (Auto) (2-4) % Baso % (Auto) (0-2) % Neut # (Auto) (6415-3546) /uL Lymph # (Auto) (1463-3816) /uL [place] # (Auto) (0-900) /uL Eos # (Auto) (0-450) /uL Baso # (Auto) (0-100) /uL PT (10.1-12.7) SECONDS INR (0.9-1.3) APTT (26.4-36.2) SECONDS Sodium (137-145) mmol/L Potassium (3.4-5.1) mmol/L Chloride (98-107) mmol/L Carbon Dioxide (22-32) mmol/L BUN (9-20) mg/dL Creatinine (0.66-1.25) mg/dL Estimated GFR (>60) mL/min BUN/Creatinine Ratio (6-22) Glucose (80-110) mg/dL Calcium (8.4-10.2) mg/dL Total Bilirubin (0.2-1.3) mg/dL AST (17-59) IU/L ALT (<50) IU/L Alkaline Phosphatase (38-126) U/L Total Protein (6.3-8.2) g/dL Albumin (3.5-5.0) g/dL Globulin (1.7-4.1) g/dL Albumin/Globulin Ratio (1.0-2.8) Lipase (23-300) U/L Ethyl Alcohol ( - 10) mg/dL Blood Type A Negative Antibody Screen Negative Urine Dip Bedside Urine Glucose 500 mg/dl Bedside Urine Bilirubin - Negative Bedside Urine Ketone - Negative Urine Specific [place] 1.010 Bedside Urine Occult Blood - Negative Bedside Urine pH 6.0 Bedside Urine Protein - Negative Bedside Urine Urobilinogen - Negative Bedside Urine Nitrite - Negative Bedside Urine Leukocytes - Negative Esterase ECG Data Attestation: I personally reviewed and interpreted this ECG as follows: Interpretation: Sinus rhythm rate of 77 SD 162 QRS of 104 and QTC 427. No acute ST changes noted. MDM Narrative Medical decision making narrative: This is a 71-year-old with multiple chronic medical issues on anticoagulation for AFib. Patient had a ground level fall 2-3 days ago after tripping over rebar. Patient has complaints of headache, neck pain, low lack back pain with some discomfort on palpation, a significant pain in his right shoulder elbow and states he is unable to bear weight on his left knee. He was ambulating the 2 days before this but has an increasing discomfort but based on his anticoagulation and exam at this time imaging was obtained. Because of his chronic medical issues baseline labs were also obtained CT with contrast was held secondary to his renal dysfunction. Patient's imaging including head CT, CT C-spine, CT L-spine obtained secondary to anticoagulation and pain on palpation of lower lumbar spine are all negative, shoulder x-ray shows arthritic changes but no fracture. Knee x-ray as well as right elbow x-ray are both negative. Patient has improved movement on recheck. Patient labs appear to be close to baseline he does have chronic kidney disease. Patient's EKG does not show acute changes. He had some improvement his pain management here with medication. Plan for discharge home he defers sling at this time for his right shoulder we did discuss follow-up in a week for repeat imaging if persisting. He is several days out so does not require repeat had head CT at this time from his fall. All questions answered and discussed return precautions. Prescription sent to patient's preferred pharmacy. Discharge Plan Departure Patient Disposition: Home Clinical Impression: Pain in right shoulder, Fall, Left knee sprain Instructions: How to Prevent Falls Activity Restrictions/Additional Instructions: Follow-up with your physician in the next week if not improving in her symptoms. Your imaging today did not show any fractures, breaks or injuries but if you continue at pain particularly in your right shoulder please follow-up for repeat imaging in 7-10 days. Continue home medications as prescribed. You can take 1 to 2 tablets of pain medication every 6 hours as needed. This medication can make you sleepy do not drive, perform hazardous activities or make any major decisions while taking it. This medication will make you constipated please take a stool softener once to twice daily until stools are soft and regular. You can take muscle relaxer 1 tablet every 8 hours as needed. Prescription sent to [facility] in [place]. Please return for altered mental status, rapidly worsening symptoms, new weakness, numbness or loss of sensation, persistent vomiting, loss of bowel or bladder control or other new or concerning symptoms. Prescriptions: New hydrocodone-acetaminophen 5-325 mg tablet 1 tab PO Q6H PRN (Reason: pain) Qty: 10 0RF cyclobenzaprine 10 mg tablet 10 mg PO TID PRN (Reason: muscle spasm) Qty: 10 0RF No Action polyethylene glycol 3350 [Miralax] 119 GM powder 17 gm PO QDAYP Qty: 0 diclofenac sodium [Voltaren] 1 % gel 1 tj Topical Q4H MDD 16 G (4 doses) PRN (Reason: osteoarthritis) Qty: 0 sildenafil [Viagra] 100 MG tablet 100 mg PO PRN MDD 100 mg PRN (Reason: Sexual Activity) Qty: 0 Label Comments: hasn't used in 'months' allopurinol 300 MG tablet 300 mg PO DAILY Qty: 0 doxazosin [Cardura] 8 MG tablet 8 mg PO BEDTIME Qty: 0 bumetanide 2 mg tablet 2 mg PO BID tolterodine 4 mg capsule,extended release 24hr 4 mg PO DAILY fexofenadine 180 mg tablet 180 mg PO DAILY spironolactone 25 mg tablet 25 mg PO BID cholecalciferol (vitamin D3) 1,000 unit capsule 2,000 unit PO DAILY fluoride (sodium) 1.1 % cream 1 applic dental DIRECTED dexlansoprazole 60 mg capsule,biphase delayed releas 60 mg PO DAILY insulin aspart U-100 100 unit/mL Solution See Rx Instructions .ROUTE .COMPLEX Rx Instructions: 1 dose subcutaneously ;24 ac breakfast, 24 at noon, 24 at bedtime. The above doses per Khris today 12/21/21 at approx 1535. vitamin B complex Tablet 1 tab PO DAILY capsaicin 0.025 % cream 1 applic topical PRN PRN (Reason: pain) pregabalin 75 mg capsule 75 mg PO BID carboxymethylcell-glycerin(PF) 0.5-0.9 % Dropperette 1 applic ophthalmic (eye) QID multivitamin with minerals Capsule 1 cap PO DAILY artificial saliva (cmce-lytes) [place] With Pump 1 spray PO PRN PRN (Reason: Dry Mouth) ipratropium-albuterol 0.5 mg-3 mg(2.5 mg base)/3 mL Solution For Nebulization 1 ea inhalation DIRECTED Label Comments: hasn't used for a couple months insulin glargine 100 unit/mL Solution 70 unit SUBCUT QAM Rx Instructions: Per Pt. Takes 35units left side ABD and the 0ther 35units on rt side per Pt at approx 1535 12/21/21 sennosides-docusate sodium 8.6-50 mg Tablet 2 tab PO DAILY chlorhexidine gluconate 4 % Liquid 1 applic TOPICAL DAILY Rx Instructions: to bumps on back of head chlorhexidine gluconate 0.12 % Mouthwash 15 ml MUCOUS MEMBRANE BID Rx Instructions: swish for 30 seconds and spit. after breakfast and at bedtime. do not eat or drink for at least one hour after use. cyclobenzaprine 10 mg tablet 10 mg PO TID PRN (Reason: muscle spasm) Qty: 30 0RF tramadol 50 mg tablet 50 mg PO Q8H PRN (Reason: pain) Qty: 7 0RF Label Comments: Doesn't take regularly lidocaine 5 % adhesive patch,medicated 1 patch topical DAILY PRN (Reason: pain) Qty: 15 0RF Rx Instructions: leave on most painful area for up to 12 hrs methocarbamol 500 mg tablet 500 mg PO TID PRN (Reason: muscle spasm) Qty: 20 0RF hydrocodone-acetaminophen 5-325 mg tablet 1 tab PO BID PRN (Reason: pain) Qty: 10 0RF atorvastatin 20 mg tablet 20 mg PO DAILY losartan 25 mg tablet 25 mg PO DAILY Ozempic 0.25 mg or 0.5 mg(2 mg/1.5 mL) Pen Injector 1 mg SUBCUT QWEEK Rx Instructions: Takes every Thursday. Per Pt 12/21/21 total dose 1.5mg oxycodone 5 mg tablet 5 mg PO Q6H PRN (Reason: pain) Qty: 14 0RF Referrals: Luis Collier MD [Primary Care Provider] - Visit Report Forms: Patient Portal/API
--- NOTE | 2022-03-22 13:04 | DI.RAD.S_ITS ---
PROCEDURE: XR ELBOW RT MIN 3V INDICATIONS: fall, increasing pain, on eliquis TECHNIQUE: 3 views of the elbow were acquired. COMPARISON: [facility], CR, XR ELBOW RT MIN 3V, 12/20/2021, 6:39. FINDINGS: Bones: No fractures or dislocations. No suspicious bony lesions. Soft tissues: No elbow joint effusion. No suspicious soft tissue calcifications. IMPRESSION: Unremarkable right elbow radiographs Approved by: Juliocesar Arellano M.D. on 03/22/2022 at 13:49
--- NOTE | 2022-03-22 13:04 | DI.CT.S_ITS ---
PROCEDURE: CT HEAD/BRAIN WO CON INDICATIONS: Trauma TECHNIQUE: Noncontrast 4.5 mm thick angled axial sections acquired from the foramen magnum to the vertex, with coronal and sagittal reformats. For radiation dose reduction, the following was used: automated exposure control, adjustment of mA and/or kV according to patient size. COMPARISON: [facility], CT, CT HEAD/BRAIN WO CON, 12/20/2021, 7:05. FINDINGS: Image quality: Excellent. CSF spaces: Basal cisterns are patent. No extra-axial fluid collections. Ventricles are normal in size and shape. Brain: No midline shift. No intracranial masses or hemorrhage. Robertson-white matter interface is normal. Moderate cerebral and cerebellar volume loss with multifocal white matter chronic ischemic change noted. Moderate calcified atherosclerotic plaque noted involving the cavernous portions of both internal carotid arteries. Skull and face: Calvarium and visualized facial bones are intact, without suspicious lesions. Sinuses: Visualized sinuses and mastoids are clear. IMPRESSION: Atrophy and chronic ischemic change without acute hemorrhage or mass effect Approved by: Juliocesar Arellano M.D. on 03/22/2022 at 13:09
--- NOTE | 2022-03-22 13:04 | DI.RAD.S_ITS ---
PROCEDURE: XR KNEE LT 3V INDICATIONS: fall, increasing pain, on eliquis TECHNIQUE: 3 views of the knee were acquired. COMPARISON: [facility], CR, XR KNEE LT 3V, 10/21/2020, 13:04. FINDINGS: Bones: No fractures or dislocations. No suspicious bony lesions. Severe medial and moderate lateral compartmental joint space narrowing. Moderate patellofemoral joint space narrowing. Significant joint effusion. Marginal osteophytes present. Soft tissues: No joint effusion. No suspicious soft tissue calcifications. IMPRESSION: Moderate to severe osteoarthritis without fracture Approved by: Juliocesar Arellano M.D. on 03/22/2022 at 13:50
--- NOTE | 2022-03-22 13:04 | DI.RAD.S_ITS ---
PROCEDURE: XR SHOULDER RT MIN 2V INDICATIONS: fall, increasing pain, on eliquis TECHNIQUE: 3 views of the shoulder were acquired. COMPARISON: [facility], CR, XR SHOULDER 2+ VIEWS RIGHT, 03/10/2022, 9:12. [facility], CR, XR SHOULDER RT 1V, 12/20/2021, 13:19. FINDINGS: Bones: Generalized decrease in osseous mineralization noted. Advanced glenohumeral degenerative change with remodeling of the humeral head and marginal osteophytes Soft tissues: No suspicious soft tissue calcifications. IMPRESSION: Advanced degenerative glenohumeral arthritic changes without fracture Osteopenia Approved by: Juliocesar Arellano M.D. on 03/22/2022 at 13:32
--- NOTE | 2022-03-22 13:04 | DI.CT.S_ITS ---
PROCEDURE: CT CERVICAL SPINE WO CON INDICATIONS: Trauma TECHNIQUE: Noncontrast 3 mm thick sections acquired from the skull base to the T4 level. Sagittal and coronal reformats were then constructed. For radiation dose reduction, the following was used: automated exposure control, adjustment of mA and/or kV according to patient size. COMPARISON: [facility], CT, CT CERVICAL SPINE WO CON, 12/20/2021, 7:05. FINDINGS: Image quality: Excellent. Bones: No fractures or dislocations. Visualized superior ribs are intact. Straightening of the normal cervical lordosis may be related to muscle spasm or positioning. Multilevel degenerative disc disease and arthropathy noted in the mid cervical spine. There is C4-5 left facet and interbody ankylosis noted, stable from the prior. Craniovertebral relationships are normal. Soft tissues: Prevertebral soft tissues are normal in thickness. No paravertebral hematomas. No apical pneumothoraces. Large left thyroid nodule unchanged IMPRESSION: No evidence of fracture or traumatic malalignment Degenerative changes stable from the prior exam Large left thyroid nodule Approved by: Juliocesar Arellano M.D. on 03/22/2022 at 13:14
--- NOTE | 2022-03-22 13:04 | DI.RAD.S_ITS ---
PROCEDURE: XR CHEST 1V INDICATIONS: fall, increasing pain, on eliquis TECHNIQUE: One view of the chest was acquired. COMPARISON: [facility], CR, XR CHEST 1V, 12/20/2021, 6:39. FINDINGS: Surgical changes and devices: None. Lungs and pleura: Lungs are clear. No pleural effusions or pneumothorax. Diffuse chronic interstitial changes Mediastinum: Mediastinal contours appear normal. Heart size is enlarged. Bones and chest wall: Fast bilateral glenohumeral degenerative osteoarthritis present. IMPRESSION: Cardiomegaly without evidence of fracture or pneumothorax Advanced degenerative glenohumeral arthritic changes Approved by: Juliocesar Arellano M.D. on 03/22/2022 at 13:33
--- NOTE | 2022-03-22 13:05 | DI.US.S_ITS ---
PROCEDURE: US ABDOMEN COMPLETE INDICATIONS: fall, increasing pain, on eliquis TECHNIQUE: Real-time scanning was performed of the abdominal and retroperitoneal organs, with image documentation. COMPARISON: None. FINDINGS: Liver: Hepatic parenchyma shows diffuse increased echogenicity consistent with fatty infiltration. Gallbladder: Sonolucent without cholelithiasis. No gallbladder wall thickening. No pericholecystic fluid or Ramirez's sign. Common Bile Duct: 4.8 mm. Pancreas: Unremarkable as visualized Right Kidney: Appropriate in size and echotexture. No evidence of hydronephrosis. No shadowing calculi. No solid or cystic mass lesion. new left upper pole 2.1 cm cyst. Study limited by body habitus, breathing motion, bowel gas. IMPRESSION: 1. Right renal cyst. Otherwise unremarkable right upper quadrant ultrasound Approved by: Juliocesar Arellano M.D. on 03/22/2022 at 15:12
--- NOTE | 2022-03-22 13:10 | DI.CT.S_ITS ---
PROCEDURE: CT LUMBAR SPINE WO CON INDICATIONS: back pain w/ palp, fall TECHNIQUE: Noncontrast 3 mm thick sections acquired from the T12 level to the sacrum. Sagittal and coronal reformats were constructed. For radiation dose reduction, the following was used: automated exposure control. COMPARISON: None. FINDINGS: Image quality: Excellent. Bones: There is normal bony alignment. No acute vertebral body compression fractures. No suspicious lytic or blastic bony lesions. No pars defects. At the disc levels, there is disc space narrowing and circumferential disc bulges combine with facet arthropathy in the lower lumbar spine. Moderate to severe central stenosis present at L4-5 Soft tissues: No retroperitoneal masses or hematomas. Visualized aorta is normal in caliber. Urinary bladder distension IMPRESSION: No evidence of fracture or traumatic malalignment. Multilevel degenerative disc disease and arthropathy results in varying degrees of central and foraminal stenosis including moderate to severe central stenosis at L4-5 Approved by: Juliocesar Arellano M.D. on 03/22/2022 at 13:16
[2022-03-22] MEDS: ONDANSETRON 4 MG/2 ML INJ IV (13:25)
[2022-03-22] MEDS: MORPHINE 4 MG/ML INJ IV ×2 (13:25→15:02)
[2022-03-22 13:36] LABS: Add Manual Diff / Slide Review NO; Basophils Absolute Auto 0 /uL (0-100); Basophils Percent Auto 0.7 % (0-2); Eosinophils Absolute Auto 100 /uL (0-450); Eosinophils Percent Auto 1.2 % (2-4); Hematocrit 37.8 % (41-53); Hemoglobin 13.1 g/dL (13.5-17.5); Lymphocytes Absolute Auto 700 /uL (1100-4500); Lymphocytes Percent Auto 12.5 % (25-40); Mean Corpuscular HGB Conc 34.7 % (30-36); Mean Corpuscular Hemoglobin 30.3 PG (26-34); Mean Corpuscular Volume 87.4 fL (80-100); Monocytes Absolute Auto 400 /uL (0-900); Monocytes Percent Auto 7.1 % (3-14); Neutrophils Absolute Auto 4400 /uL (1500-7000); Neutrophils Percent Auto 78.5 % (50-75); Platelet Count 122 X10^3/uL (150-400); Red Blood Cell Count 4.32 X10^6/uL (4.5-5.9); Red Cell Distribution Width 15.6 % (11.6-14.8); White Blood Cell Count 5.6 X10^3/uL (4.5-11.0)
[2022-03-22 14:05] LABS: Alanine Aminotransferase 24 IU/L (<50); Albumin 4.3 g/dL (3.5-5.0); Albumin Globulin Ratio 1.5 (1.0-2.8); Alkaline Phosphatase 85 U/L (38-126); Aspartate Aminotransferase 21 IU/L (17-59); BUN Creatinine Ratio 21.6 (6-22); Bilirubin Total 0.6 mg/dL (0.2-1.3); Blood Urea Nitrogen 43 mg/dL (9-20); Calcium 9.3 mg/dL (8.4-10.2); Carbon Dioxide 30 mmol/L (22-32); Chloride 96 mmol/L (98-107); Estimated Glomerular Filt Rate 36 mL/min (>60); Ethanol (ETOH) < 10 mg/dL; Globulin 2.8 g/dL (1.7-4.1); Glucose 152 mg/dL (80-110); HEMOLYSIS 16 (0-50); Lipase 223 U/L (23-300); Potassium 3.7 mmol/L (3.4-5.1); Sodium 136 mmol/L (137-145); Total Protein 7.1 g/dL (6.3-8.2)
[2022-03-22 15:39] LABS: INR 1.1 (0.9-1.3); Prothrombin Time 12.3 SECONDS (10.1-12.7)
[2022-03-22 15:41] LABS: PTT Partial Thromboplastin Tim 32 SECONDS (26.4-36.2)
[2022-03-22 17:04] VITALS: BP 165/70; PULSE 88; RESP 18; TEMP 36.8; O2SAT 97
== END 2022-03-22 17:03 | disposition home or self-care (01) ==
PROVIDERS: Emergency Provider Emergency Medicine; PCP Student in an Organized Health Care Education/Training Program
DX: S83.92XA Sprain of unspecified site of left knee, initial encounter (principal); M54.2 Cervicalgia; M25.511 Pain in right shoulder; W01.0XXA Fall on same level from slipping, tripping and stumbling without subsequent striking against object, initial encounter; Z79.01 Long term (current) use of anticoagulants
CPT/HCPCS: 36415; 70450; 71045; 72125; 72131; 73030; 73080; 73562; 76700; 80053; 80320; 81003; 83690; 85025; 85610; 85730; 86850; 86900; 86901; 93005; 93010; 96374; 96375; 96376; 99284; J2270; J2405

== ENCOUNTER 2022-06-06 15:36 | Emergency (ER) | payer OTHER, SELFPAY ==
[2021-12-20 17:44] VITALS: BMI 31.1
[2022-06-06] VITALS (9 sets, daily range): BP systolic 120–134; BP diastolic 58–71; PULSE 75–88; RESP 18–20; TEMP 36.4; O2SAT 92–99; BMI 38.7
--- NOTE | 2022-06-06 15:56 | DI.CT.S_ITS ---
PROCEDURE: CT HEAD/BRAIN WO CON INDICATIONS: vision changes , headache TECHNIQUE: Noncontrast 4.5 mm thick angled axial sections acquired from the foramen magnum to the vertex, with coronal and sagittal reformats. For radiation dose reduction, the following was used: automated exposure control, adjustment of mA and/or kV according to patient size. COMPARISON: [facility], CT, CT HEAD/BRAIN WO CON, 03/22/2022, 13:29. FINDINGS: Image quality: Excellent. CSF spaces: Basal cisterns are patent. No extra-axial fluid collections. The ventricles are symmetric in size and shape. Brain: No intracranial bleeds or masses. There is cerebral volume loss for age, with resultant ventricular and sulcal prominence. There are periventricular and deep white matter chronic small vessel ischemic changes. There is intracranial internal carotid artery atherosclerosis. Skull and face: Stable likely scarring can be seen involving the right parietal scalp, as on series 2, image 25. Calvarium and visualized facial bones appear intact, without suspicious lesions. Sinuses: Visualized sinuses and mastoids are clear. IMPRESSION: No acute intracranial process is seen. Stable from prior. Dictated by: Valerio Tomlinson M.D. on 06/06/2022 at 16:24 Approved by: Valerio Tomlinson M.D. on 06/06/2022 at 16:26
[2022-06-06 16:27] LABS: Add Manual Diff / Slide Review NO; Basophils Absolute Auto 0 /uL (0-100); Eosinophils Absolute Auto 200 /uL (0-450); Eosinophils Percent Auto 5.2 % (2-4); Hematocrit 37.7 % (41-53); Hemoglobin 12.6 g/dL (13.5-17.5); Lymphocytes Absolute Auto 1000 /uL (1100-4500); Lymphocytes Percent Auto 30.2 % (25-40); Mean Corpuscular HGB Conc 33.4 % (30-36); Mean Corpuscular Hemoglobin 29.4 PG (26-34); Mean Corpuscular Volume 87.9 fL (80-100); Monocytes Absolute Auto 300 /uL (0-900); Monocytes Percent Auto 8.5 % (3-14); Neutrophils Absolute Auto 1800 /uL (1500-7000); Neutrophils Percent Auto 55.1 % (50-75); Platelet Count 160 X10^3/uL (150-400); Red Blood Cell Count 4.29 X10^6/uL (4.5-5.9); Red Cell Distribution Width 13.9 % (11.6-14.8); White Blood Cell Count 3.3 X10^3/uL (4.5-11.0)
[2022-06-06 16:31] LABS: BUN Creatinine Ratio 17.7 (6-22); Blood Urea Nitrogen 41 mg/dL (9-20); Calcium 9.4 mg/dL (8.4-10.2); Carbon Dioxide 27 mmol/L (22-32); Chloride 101 mmol/L (98-107); Estimated Glomerular Filt Rate 30 mL/min (>60); Glucose 156 mg/dL (80-110); HEMOLYSIS < 15 (0-50); Potassium 4.4 mmol/L (3.4-5.1); Sodium 138 mmol/L (137-145)
--- NOTE | 2022-06-06 16:36 | PC.NURSE ---
Pt states he is having difficulty keeping his eyelids up, denies increase in swelling or pain to eyelids. Pt able to open eyes wide, denies top visual miller changes, states when he looks down he has blind spot in the field which he states is abnormal.
--- NOTE | 2022-06-06 17:13 | ED_ITS ---
HPI - Neuro Symptoms/Deficit <Shaji Dunn DO - Last Filed: 06/07/22 13:31> General Chief Complaint: Neuro Symptoms/Deficit Stated Complaint: Sharp pain in head, Eyesight fluctuating Time Seen by Provider: 06/06/22 16:52 Source: patient Mode of arrival: Wheelchair History of Present Illness HPI Narrative: Patient is a 71-year-old male. He is an insulin-dependent diabetic. He has had TIAs in the past. Has never had a stroke. Also has had laser surgery to his left eye which has caused some visual disturbances at baseline. He is here today because several days ago he started have pain in the right side of the back of his neck that has now progressed up to the top of his head on the right. He does have degenerative disc disease and has baseline cervical discomfort but the pain is never progressed the top of his head. He also states that at some point today he started have some visual deficits in the upper portion of his eyes. He states that it feels like that he is wearing a hat over his eyes. He has had symptoms like this in the past that were several years ago he is unsure what the circumstances were but thought maybe was because of his diabetes. Has not tried anything for symptoms prior to arrival. On Anticoagulants: No Related Data Home Medications Medication Instructions Recorded Confirmed polyethylene glycol 3350 17 17 gm PO QDAYP constipation ##0 04/30/13 12/21/21 gram/dose oral powder (Miralax) allopurinol 300 mg tablet 300 mg PO DAILY ##0 04/16/17 12/21/21 diclofenac sodium 1 % topical gel 1 tj topical Q4H PRN 04/16/17 12/21/21 (Voltaren) osteoarthritis ##0 doxazosin 8 mg tablet (Cardura) 8 mg PO BEDTIME ##0 04/16/17 12/21/21 sildenafil 100 mg tablet (Viagra) 100 mg PO PRN PRN Sexual Activity 04/16/17 12/21/21 ##0 artificial 1 spray PO PRN PRN Dry Mouth 03/24/19 12/21/21 saliva(carboxymethylcellulose-electrolytes) spray pump bumetanide 2 mg tablet 2 mg PO BID 03/24/19 12/21/21 capsaicin 0.025 % topical cream 1 applic topical PRN PRN pain 03/24/19 12/21/21 carboxymethylcellulose 0.5 1 applic ophthalmic (eye) QID 03/24/19 12/21/21 %-glycerin 0.9 % (PF) eye drops,dropperette cholecalciferol (vitamin D3) 25 2,000 unit PO DAILY 03/24/19 12/21/21 mcg (1,000 unit) capsule dexlansoprazole 60 mg 60 mg PO DAILY 03/24/19 12/21/21 capsule,biphase delayed release fexofenadine 180 mg tablet 180 mg PO DAILY 03/24/19 12/21/21 fluoride (sodium) 1.1 % dental 1 applic dental DIRECTED 03/24/19 12/21/21 cream insulin aspart U-100 100 unit/mL See Rx Instructions .Route .COMPLEX 03/24/19 12/21/21 subcutaneous solution multivitamin with minerals 1 cap PO DAILY 03/24/19 12/21/21 pregabalin 75 mg capsule 75 mg PO BID 03/24/19 12/21/21 spironolactone 25 mg tablet 25 mg PO BID 03/24/19 12/21/21 tolterodine 4 mg capsule,extended 4 mg PO DAILY 03/24/19 12/21/21 release 24 hr vitamin B complex 1 tab PO DAILY 03/24/19 12/21/21 chlorhexidine gluconate 0.12 % 15 ml mucous membrane BID 05/23/19 12/21/21 mouthwash chlorhexidine gluconate 4 % 1 applic topical DAILY 05/23/19 12/21/21 topical liquid insulin glargine 100 unit/mL 70 unit SUBCUT QAM 05/23/19 12/21/21 subcutaneous solution ipratropium 0.5 mg-albuterol 3 mg 1 ea inhalation DIRECTED 05/23/19 12/21/21 (2.5 mg base)/3 mL nebulization soln sennosides 8.6 mg-docusate sodium 2 tab PO DAILY 05/23/19 12/21/21 50 mg tablet atorvastatin 20 mg tablet 20 mg PO DAILY 12/02/21 12/21/21 losartan 25 mg tablet 25 mg PO DAILY 12/02/21 12/21/21 semaglutide 0.25 mg or 0.5 mg (2 1 mg SUBCUT QWEEK 12/02/21 12/21/21 mg/1.5 mL) subcutaneous pen injector (Ozempic) Previous Rx's Medication Instructions Recorded cyclobenzaprine 10 mg tablet 10 mg PO TID PRN muscle spasm #30 05/23/19 tabs tramadol 50 mg tablet 50 mg PO Q8H PRN pain #7 tabs 05/23/19 lidocaine 5 % topical patch 1 patch topical DAILY PRN pain #15 10/21/20 ea hydrocodone 5 mg-acetaminophen 325 1 tab PO BID PRN pain #10 tabs 10/31/21 mg tablet methocarbamol 500 mg tablet 500 mg PO TID PRN muscle spasm #20 10/31/21 tabs oxycodone 5 mg tablet 5 mg PO Q6H PRN pain #14 tabs 12/22/21 cyclobenzaprine 10 mg tablet 10 mg PO TID PRN muscle spasm #10 03/22/22 tabs hydrocodone 5 mg-acetaminophen 325 1 tab PO Q6H PRN pain #10 tabs 03/22/22 mg tablet Allergies Allergy/AdvReac Type Severity Reaction Status Date / Time gabapentin Allergy Verified 06/06/22 15:54 Review of Systems <Shaji Dunn DO - Last Filed: 06/07/22 13:31> Constitutional Constitutional: Reports system reviewed and no additional complaints, except as documented, Denies chills and Reports headache(s) Eyes Eyes: Reports system reviewed and no additional complaints, except as documented ENT Ears, Nose, Mouth, and Throat: Denies vertigo, Denies dizziness and Reports headache(s) Cardiovascular Comments: No chest pain Respiratory Comments: No shortness of breath Gastrointestinal Comments: No abdominal pain Integumentary/Breasts Skin/Breast: Reports system reviewed and no additional complaints, except as documented Neurologic Neurologic: Denies abnormal speech, Denies confusion, Denies vertigo, Denies dizziness and Reports headache(s) Psychiatric Psychiatric: Denies confusion Hematologic/Lymphatic On Anticoagulants: No Patient History <Shaji Dunn DO - Last Filed: 06/07/22 13:31> Medical History Constipation GERD (gastroesophageal reflux disease) Heart failure HTN (hypertension) Hypercholesteremia Knee pain Renal disease Social History marital status: household members: spouse lives independently: Yes Smoking Status: Former smoker alcohol intake: former Smoking Status: Former smoker tobacco type: cigarettes alcohol intake frequency: 0-2 drinks per day Substance Use Type: does not use Exam <DO Johan Borges Last Filed: 06/07/22 13:31> Initial Vital Signs Initial Vital Signs: Vital Signs Temperature 97.5 F L 06/06/22 15:47 Pulse Rate 82 06/06/22 15:47 Respiratory Rate 18 06/06/22 15:47 Blood Pressure 126/61 06/06/22 15:47 Pulse Oximetry 99 06/06/22 15:47 Oxygen Delivery Method 06/06/22 15:47 Const General: cooperative and comfortable HENMT Head: normal to inspection and normocephalic Face and sinus: normal facial exam Mouth: oral mucosae normal Eyes Pupils: PERRL EOM: EOM intact bilaterally Other: Patient does have superior visual field deficits that appear to be more in the left eye than the right eye. However upon testing today he states that all of the deficits that are found on the exam are not new. Resp Effort & Inspection: normal respiratory effort Auscultation: clear to auscultation bilaterally Cardio Rate: regular rate Rhythm: regular rhythm GI Inspection: normal to inspection Back/Spine/Pelvis Other: Patient does have paraspinal reproducible tenderness to palpation of the right side of his neck which he states reproduces his symptoms. Skin General: no rashes or lesions noted Neuro General: patient alert, patient awake, patient oriented x3 and moves all extremities Speech: speech normal Gait: normal gait Motor: muscle tone normal throughout Extrem General: normal to inspection and capillary refill normal <Stef Chavez DO - Last Filed: 06/07/22 05:25> Initial Vital Signs Initial Vital Signs: Vital Signs Temperature 97.5 F L 06/06/22 15:47 Pulse Rate 82 06/06/22 15:47 Respiratory Rate 18 06/06/22 15:47 Blood Pressure 126/61 06/06/22 15:47 Pulse Oximetry 99 06/06/22 15:47 Oxygen Delivery Method 06/06/22 15:47 Course <Shaji Dunn DO - Last Filed: 06/07/22 13:31> Orders Ordered: Discontinued Medications Hydrocodone Bitart/Acetaminophen (Hydrocodone/Acet 5/325 Prepack) 1 bottle MISC SEEINSTR ONE Stop: 06/06/22 22:41 Last Admin: 06/06/22 23:06 Dose: 1 bottle Documented By: AT Diazepam (Diazepam 10 Mg/2 Ml Syringe) 2 mg IV NOW ONE Stop: 06/06/22 17:41 Last Admin: 06/06/22 17:50 Dose: Not Given Documented By: RUTH Diazepam (Diazepam 10 Mg/2 Ml Syringe) 2 mg IV NOW ONE Stop: 06/06/22 18:01 Last Admin: 06/06/22 17:49 Dose: 2 mg Documented By: RUTH Diazepam (Diazepam 10 Mg/2 Ml Syringe) 2 mg IV NOW ONE Stop: 06/06/22 18:05 Last Admin: 06/06/22 18:15 Dose: 2 mg Documented By: KATHLEEN Sodium Chloride (Normal Saline 0.9%) 1,000 mls @ 150 mls/hr IV CONT ORLY Last Admin: 06/06/22 17:25 Dose: Not Given Documented By: AT Ketorolac Tromethamine (Ketorolac 30 Mg/Ml Vial) 10 mg IV NOW ONE Stop: 06/06/22 22:41 Last Admin: 06/06/22 23:06 Dose: 10 mg Documented By: AT Vital Signs Vital signs: Vital Signs - 8 hr 06/06/22 21:30 06/06/22 22:00 06/06/22 22:30 Pulse Rate 78 79 77 Blood Pressure Pulse Oximetry 93 92 94 Oxygen Delivery Method 06/06/22 23:00 06/06/22 23:08 06/06/22 23:08 Pulse Rate 78 76 Blood Pressure 123/60 Pulse Oximetry 93 94 Oxygen Delivery Method Room Air <Stef Chavez DO - Last Filed: 06/07/22 05:25> Orders Ordered: Discontinued Medications Hydrocodone Bitart/Acetaminophen (Hydrocodone/Acet 5/325 Prepack) 1 bottle MISC SEEINSTR ONE Stop: 06/06/22 22:41 Last Admin: 06/06/22 23:06 Dose: 1 bottle Documented By: AT Diazepam (Diazepam 10 Mg/2 Ml Syringe) 2 mg IV NOW ONE Stop: 06/06/22 17:41 Last Admin: 06/06/22 17:50 Dose: Not Given Documented By: RUTH Diazepam (Diazepam 10 Mg/2 Ml Syringe) 2 mg IV NOW ONE Stop: 06/06/22 18:01 Last Admin: 06/06/22 17:49 Dose: 2 mg Documented By: RUTH Diazepam (Diazepam 10 Mg/2 Ml Syringe) 2 mg IV NOW ONE Stop: 06/06/22 18:05 Last Admin: 06/06/22 18:15 Dose: 2 mg Documented By: AT Sodium Chloride (Normal Saline 0.9%) 1,000 mls @ 150 mls/hr IV CONT ORLY Last Admin: 06/06/22 17:25 Dose: Not Given Documented By: AT Ketorolac Tromethamine (Ketorolac 30 Mg/Ml Vial) 10 mg IV NOW ONE Stop: 06/06/22 22:41 Last Admin: 06/06/22 23:06 Dose: 10 mg Documented By: AT Vital Signs Vital signs: Vital Signs - 8 hr 06/06/22 21:30 06/06/22 22:00 06/06/22 22:30 Pulse Rate 78 79 77 Blood Pressure Pulse Oximetry 93 92 94 Oxygen Delivery Method 06/06/22 23:00 06/06/22 23:08 06/06/22 23:08 Pulse Rate 78 76 Blood Pressure 123/60 Pulse Oximetry 93 94 Oxygen Delivery Method Room Air MDM - Neuro Symptoms/Deficit <Shaji Dunn DO - Last Filed: 06/07/22 13:31> Lab Data Attestation: I reviewed the patient's lab results. Result diagrams: 06/06/22 15:59 06/06/22 15:59 Labs: Lab Results 06/06/22 06/06/22 Range/Units 15:59 15:59 WBC 3.3 L (4.5-11.0) X10^3/uL RBC 4.29 L (4.5-5.9) X10^6/uL Hgb 12.6 L (13.5-17.5) g/dL Hct 37.7 L (41-53) % MCV 87.9 (80-100) fL MCH 29.4 (26-34) PG MCHC 33.4 (30-36) % RDW 13.9 (11.6-14.8) % Plt Count 160 (150-400) X10^3/uL Neut % (Auto) 55.1 (50-75) % Lymph % (Auto) 30.2 (25-40) % [place] % (Auto) 8.5 (3-14) % Eos % (Auto) 5.2 H (2-4) % Baso % (Auto) 1.0 (0-2) % Neut # (Auto) 1800 (1409-3549) /uL Lymph # (Auto) 1000 L (6642-5305) /uL [place] # (Auto) 300 (0-900) /uL Eos # (Auto) 200 (0-450) /uL Baso # (Auto) 0 (0-100) /uL Sodium 138 (137-145) mmol/L Potassium 4.4 (3.4-5.1) mmol/L Chloride 101 (98-107) mmol/L Carbon Dioxide 27 (22-32) mmol/L BUN 41 H (9-20) mg/dL Creatinine 2.32 H (0.66-1.25) mg/dL Estimated GFR 30 L (>60) mL/min BUN/Creatinine Ratio 17.7 (6-22) Glucose 156 H (80-110) mg/dL Calcium 9.4 (8.4-10.2) mg/dL Point of Care Testing Glucose POC [address] scan - head: Radiologist's Impression: [place] [address] CT Scan Report Signed Patient: Khris Guaman MR#: [id number] : 1950 Acct:[id number] Age/Sex: 71 / M Date of Service: 06/06/22 Loc: ED Accession Number: [id number] ?? Procedure: CT head/brain wo con Ordering Provider: Shaji Dunn D.O. PROCEDURE:? CT HEAD/BRAIN WO CON ? INDICATIONS:? vision changes , headache ? TECHNIQUE:? Noncontrast 4.5 mm thick angled axial sections acquired from the foramen magnum to the vertex, with coronal and sagittal reformats.? For radiation dose reduction, the following was used:? automated exposure control, adjustment of mA and/or kV according to patient size.? ? COMPARISON:? [facility], CT, CT HEAD/BRAIN WO CON, 03/22/2022, 13:29. ? FINDINGS:? Image quality:? Excellent.? ? CSF spaces:? Basal cisterns are patent.? No extra-axial fluid collections.? The ventricles are symmetric in size and shape.? ? Brain:? No intracranial bleeds or masses.? There is cerebral volume loss for age, with resultant ventricular and sulcal prominence.? There are periventricular and deep white matter chronic small vessel ischemic changes.? There is intracranial internal carotid artery atherosclerosis.? ? Skull and face:? Stable likely scarring can be seen involving the right parietal scalp, as on series 2, image 25. Calvarium and visualized facial bones appear intact, without suspicious lesions.? ? Sinuses:? Visualized sinuses and mastoids are clear.? ? ? IMPRESSION:? ? No acute intracranial process is seen.? Stable from prior.? ? ? Dictated by: Valerio Tomlinson M.D. on 06/06/2022 at 16:24 ? ? Approved by: Valerio Tomlinson M.D. on 06/06/2022 at 16:26?? ECG Data Attestation: I personally reviewed and interpreted this ECG as follows: Interpretation: Sinus rhythm Ventricular rate is 76 Normal axis Normal QRS Normal QTC No ST T wave changes MDM Narrative Medical decision making narrative: Patient's headache today does seem to be tension type headache and most likely related to his cervical spinal injury. The EKG is unremarkable. It is somewhat difficult to ascertain as to whether not his vision symptoms today are new versus old. He states that the upper visual field deficits are new but then with objective testing it seems that all of the deficits are not new as they are related to his left eye. Will obtain an MRI for further evaluation. Care turned over to Dr. Chavez to follow-up with ultimate disposition. <Stef Chavez, DO - Last Filed: 06/07/22 05:25> Lab Data Labs: Lab Results 06/06/22 06/06/22 Range/Units 15:59 15:59 WBC 3.3 L (4.5-11.0) X10^3/uL RBC 4.29 L (4.5-5.9) X10^6/uL Hgb 12.6 L (13.5-17.5) g/dL Hct 37.7 L (41-53) % MCV 87.9 (80-100) fL MCH 29.4 (26-34) PG MCHC 33.4 (30-36) % RDW 13.9 (11.6-14.8) % Plt Count 160 (150-400) X10^3/uL Neut % (Auto) 55.1 (50-75) % Lymph % (Auto) 30.2 (25-40) % [place] % (Auto) 8.5 (3-14) % Eos % (Auto) 5.2 H (2-4) % Baso % (Auto) 1.0 (0-2) % Neut # (Auto) 1800 (2824-7998) /uL Lymph # (Auto) 1000 L (0643-0300) /uL [place] # (Auto) 300 (0-900) /uL Eos # (Auto) 200 (0-450) /uL Baso # (Auto) 0 (0-100) /uL Sodium 138 (137-145) mmol/L Potassium 4.4 (3.4-5.1) mmol/L Chloride 101 (98-107) mmol/L Carbon Dioxide 27 (22-32) mmol/L BUN 41 H (9-20) mg/dL Creatinine 2.32 H (0.66-1.25) mg/dL Estimated GFR 30 L (>60) mL/min BUN/Creatinine Ratio 17.7 (6-22) Glucose 156 H (80-110) mg/dL Calcium 9.4 (8.4-10.2) mg/dL Point of Care Testing Glucose POC 83 Imaging Data MRI: Radiologist's Impression: Khris Guaman??71??M??1950 ? Allergy/Adv: gabapentin Close Brain MRI (Signed) NiñoRian figueroael - 06/06/[address] (Signed) Champ Tomlinsonsse - 06/06/[address] (Signed) Arellano,Juliocesar - 03/22/22 Abdomen Ultrasound (Signed) Arellano,Juliocesar - 03/22/22 Shoulder X-Ray (Signed) Arellano,Juliocesar - 03/22/22 Knee X-Ray (Signed) Arellano,Juliocesar - 03/22/[address] (Signed) Arellano,Juliocesar - 03/22/22 Elbow X-Ray (Signed) Arellano,Juliocesar - 03/22/22 Chest X-Ray (Signed) Arellano,Juliocesar - 03/22/[address] (Signed) Arellano,Juliocesar - 03/22/22 Telemetry Strips 12/20/21 Telemetry Strips 12/20/21 Shoulder X-Ray (Signed) Bereket Murphy 12/20/[address] (Signed) Trey Matos - 12/20/21 Chest/Abdomen/Pelvis CT (Signed) Tita Johnson - 12/20/21 Shoulder X-Ray (Signed) JohnsonTita magallanes - 12/20/[address] (Signed) Slick Matosson - 12/20/21 Chest X-Ray (Signed) KiranNeville - 12/20/21 Pelvis X-Ray (Signed) JohnsonTita - 12/20/21 Elbow X-Ray (Signed) KiranNeville - 12/20/21 Telemetry Strips 12/02/[address] (Signed) Juliocesar Arellano - 10/31/[address] (Signed) Trey Matos - 10/31/21 Chest X-Ray (Signed) Call,Bereket - 01/18/21 Chest X-Ray (Signed) Call,Bereket - 11/28/20 Knee X-Ray (Signed) Valerio Tomlinson - 10/21/20 Shoulder X-Ray (Signed) Randa Wahl - 05/23/19 Chest X-Ray (Signed) Damion Quiros - 05/23/[address] (Signed) Longwood,Valerio - 05/23/[address] (Signed) Bushra,Valerio - 05/23/19 Thoracic Spine X-Ray (Signed) Eric,Stephanie - 05/23/19 Lumbar Spine X-Ray (Signed) Eric,Stephanie - 05/23/19 Knee X-Ray (Signed) Eric,Stephanie - 05/23/19 Knee X-Ray (Signed) Eric,Stephanie - 05/23/19 Shoulder X-Ray (Signed) Niño,Torey - 03/24/[address] (Signed) Niño,Torey - 03/24/19 Chest X-Ray (Signed) Niño,Torey - 03/24/[address] (Signed) Niño,Torey - 03/24/[address] (Signed) Jay Churchill - 11/14/18 Chest X-Ray (Signed) Josué Figueroa - 05/09/[address] [address] Magnetic Resonance Report Signed Patient: Khris Guaman MR#: [id number] : 1950 Acct:[id number] Age/Sex: 71 / M Date of Service: 06/06/22 Loc: ED Accession Number: [id number] ?? Procedure: MR stroke Ordering Provider: Shaji Dunn D.O. PROCEDURE:? MR STROKE Pre- and post-contrast brain MRI, non-contrast brain MR angiogram, pre- and postcontrast neck MR angiogram ? INDICATIONS:? Headache and vision changes. ? TECHNIQUE:? Brain:? Noncontrast axial T1 spin echo, axial T2 fast spin echo, sagittal and axial FLAIR, coronal T2 fast spin echo, axial gradient echo, axial diffusion and ADC through the brain.? After the administration of contrast, axial 3D VIBE of the cranial vasculature and brain.? Brain MRA:? Non-contrast 3-D time of flight MR angiogram, with multiple wqphkqx-cezeznmij-nytpxpvaqm (MIP) reformats performed.? Neck MRA:? Axial and sagittal TruFISP through the neck.? Coronal dynamic MR angiogram during administration of contrast in the arterial and venous phases, with 3- dimenstional uaqtefr-obnnncueu-yfwaexcuvu (MIP) reformats constructed from subtraction images.? ? COMPARISON:? [facility], CT, CT HEAD/BRAIN WO CON, 06/06/2022, 17:14. ? FINDINGS:? Image quality:? Excellent.? ? BRAIN:? CSF spaces:? There is mild cerebral volume loss with prominence of the ventricles and sulci.? Basal cisterns are patent.? No extra-axial fluid collections.? Brain:? Diffusion weighted images demonstrate no acute infarcts.? No intracranial hemorrhage, mass, or mass effect.? The foster-white matter junction appears preserved.? Brainstem appears normal.? Normal intravascular flow voids are present.? No abnormal intracranial enhancement.? Skull and face:? Calvarial marrow signal is normal.? Orbits appear normal.? Sinuses:? Sinuses and mastoids are clear.? ? BRAIN MR ANGIOGRAM:? Anterior circulation:? Intracranial internal carotid arteries are normal in size and patent bilaterally.? The flow within the paired anterior cerebral arteries is symmetric and patent bilaterally.? The flow within the middle cerebral arteries is symmetric and patent bilaterally.? The anterior communicating artery is patent.? No high-grade stenoses, occlusions, or aneurysms.? Posterior circulation:? The visualized portions of the vertebral arteries are patent and join to form a patent basilar artery.? The flow within the posterior cerebral arteries is symmetric and patent bilaterally.? There are bilateral posterior communicating arteries.? No high-grade stenoses, occlusions, or aneurysms.? ? NECK MR ANGIOGRAM:? Carotids:? Great vessels demonstrate a bovine aortic arch with common origin of the right brachiocephalic and left common carotid arteries as they arise from the aortic arch.? The origins of the common carotid arteries appear patent.? The calibers and courses of both common carotid arteries are normal.? The carotid bulbs appear widely patent.? The internal carotid arteries demonstrate normal course and caliber.? Posterior circulation:? The origins of the vertebral arteries appear patent.? More superior portions of both vertebral arteries demonstrate normal course and caliber, and join to form a normal appearing basilar artery.? Miscellaneous:? Subclavian arteries appear patent.? Pre-contrast images through the neck demonstrate moderate spinal canal narrowing at C3-C4. ? ? IMPRESSION:? ? BRAIN MRI:? ? 1. No infarct or other acute intracranial abnormality. ? 2. Mild cerebral volume loss.? ? BRAIN MR ANGIOGRAM:? ? 1. No high-grade stenosis or occlusion of the central intracranial arteries. ? NECK MR ANGIOGRAM:? ? 1. No high-grade stenosis or occlusion of the head and neck arteries.? The carotid bulbs appear widely patent. ? ? Dictated by: Torey Niño M.D. on 06/06/2022 at 20:03 ? ? Approved by: Torey Niño M.D. on 06/06/2022 at 20:12 ? [facility] Narrative Medical decision making narrative: Patient's headache today does seem to be tension type headache and most likely related to his cervical spinal injury. The EKG is unremarkable. It is somewhat difficult to ascertain as to whether not his vision symptoms today are new versus old. He states that the upper visual field deficits are new but then wit h objective testing it seems that all of the deficits are not new as they are related to his left eye. Will obtain an MRI for further evaluation. Care turned over to Dr. Chavez to follow-up with ultimate disposition. [1900] (Scott) Patient received in sign out from [Shaun]. I have reviewed the clinical course and performed an independent history and physical exam. Headache considerations include, but not limited to: Subarachnoid hemorrhage, but unlikely as patient denies sudden onset of pain, not worst of life, or neck pain Meningitis considered, but thought unlikely given lack of Brudzinski's, Kernig's sign, altered mental status or fever Giant cell arteritis considered, but thought unlikely given lack of unilateral findings, pain in advent, vision change HTN Emergency considered, but thought unlikely given normal vitals Other serious diagnoses considered unlikely given lack of red flag findings such as sudden onset, increasing frequency, immunocompromise, systemic signs (fever, chills, stiff neck, or rash), focal neurologic findings, trauma, blood thinners, etc. Patient offered pain control, given extensive return precautions and questions have been answered to his apparent satisfaction Discharge Plan Departure Patient Disposition: Home Clinical Impression: Headache Instructions: DI for Headache Activity Restrictions/Additional Instructions: *You have been diagnosed with [ Headache ] *What to do: *Take medications as directed *Follow up with your primary care provider in 2-3 days, call for an appointment. Let them know you were seen in the Emergency Department and that we ask that you be seen in follow up *Return to ER if you should have any new, worsening or concerning symptoms, such as [ fever > 101F, neck pain or stiffness, vomiting, confusion, seizure, focal weakness, vision change, speech deficit or other concerning symptoms ] Prescriptions: No Action polyethylene glycol 3350 [Miralax] 119 GM powder 17 gm PO QDAYP Qty: 0 diclofenac sodium [Voltaren] 1 % gel 1 tj Topical Q4H MDD 16 G (4 doses) PRN (Reason: osteoarthritis) Qty: 0 sildenafil [Viagra] 100 MG tablet 100 mg PO PRN MDD 100 mg PRN (Reason: Sexual Activity) Qty: 0 Label Comments: hasn't used in 'months' allopurinol 300 MG tablet 300 mg PO DAILY Qty: 0 doxazosin [Cardura] 8 MG tablet 8 mg PO BEDTIME Qty: 0 bumetanide 2 mg tablet 2 mg PO BID tolterodine 4 mg capsule,extended release 24hr 4 mg PO DAILY fexofenadine 180 mg tablet 180 mg PO DAILY spironolactone 25 mg tablet 25 mg PO BID cholecalciferol (vitamin D3) 1,000 unit capsule 2,000 unit PO DAILY fluoride (sodium) 1.1 % cream 1 applic dental DIRECTED dexlansoprazole 60 mg capsule,biphase delayed releas 60 mg PO DAILY insulin aspart U-100 100 unit/mL Solution See Rx Instructions .ROUTE .COMPLEX Rx Instructions: 1 dose subcutaneously ;24 ac breakfast, 24 at noon, 24 at bedtime. The above doses per Khris today 12/21/21 at approx 1535. vitamin B complex Tablet 1 tab PO DAILY capsaicin 0.025 % cream 1 applic topical PRN PRN (Reason: pain) pregabalin 75 mg capsule 75 mg PO BID carboxymethylcell-glycerin(PF) 0.5-0.9 % Dropperette 1 applic ophthalmic (eye) QID multivitamin with minerals Capsule 1 cap PO DAILY artificial saliva (cmce-lytes) [place] With Pump 1 spray PO PRN PRN (Reason: Dry Mouth) ipratropium-albuterol 0.5 mg-3 mg(2.5 mg base)/3 mL Solution For Nebulization 1 ea inhalation DIRECTED Label Comments: hasn't used for a couple months insulin glargine 100 unit/mL Solution 70 unit SUBCUT QAM Rx Instructions: Per Pt. Takes 35units left side ABD and the 0ther 35units on rt side per Pt at approx 1535 12/21/21 sennosides-docusate sodium 8.6-50 mg Tablet 2 tab PO DAILY chlorhexidine gluconate 4 % Liquid 1 applic TOPICAL DAILY Rx Instructions: to bumps on back of head chlorhexidine gluconate 0.12 % Mouthwash 15 ml MUCOUS MEMBRANE BID Rx Instructions: swish for 30 seconds and spit. after breakfast and at bedtime. do not eat or drink for at least one hour after use. cyclobenzaprine 10 mg tablet 10 mg PO TID PRN (Reason: muscle spasm) Qty: 30 0RF tramadol 50 mg tablet 50 mg PO Q8H PRN (Reason: pain) Qty: 7 0RF Label Comments: Doesn't take regularly lidocaine 5 % adhesive patch,medicated 1 patch topical DAILY PRN (Reason: pain) Qty: 15 0RF Rx Instructions: leave on most painful area for up to 12 hrs methocarbamol 500 mg tablet 500 mg PO TID PRN (Reason: muscle spasm) Qty: 20 0RF hydrocodone-acetaminophen 5-325 mg tablet 1 tab PO BID PRN (Reason: pain) Qty: 10 0RF atorvastatin 20 mg tablet 20 mg PO DAILY losartan 25 mg tablet 25 mg PO DAILY Ozempic 0.25 mg or 0.5 mg(2 mg/1.5 mL) Pen Injector 1 mg SUBCUT QWEEK Rx Instructions: Takes every Thursday. Per Pt 12/21/21 total dose 1.5mg oxycodone 5 mg tablet 5 mg PO Q6H PRN (Reason: pain) Qty: 14 0RF hydrocodone-acetaminophen 5-325 mg tablet 1 tab PO Q6H PRN (Reason: pain) Qty: 10 0RF cyclobenzaprine 10 mg tablet 10 mg PO TID PRN (Reason: muscle spasm) Qty: 10 0RF Referrals: Luis Collier MD [Primary Care Provider] - Visit Report Forms: Patient Portal/API
--- NOTE | 2022-06-06 17:40 | DI.MRI.S_ITS ---
PROCEDURE: MR STROKE Pre- and post-contrast brain MRI, non-contrast brain MR angiogram, pre- and postcontrast neck MR angiogram INDICATIONS: Headache and vision changes. TECHNIQUE: Brain: Noncontrast axial T1 spin echo, axial T2 fast spin echo, sagittal and axial FLAIR, coronal T2 fast spin echo, axial gradient echo, axial diffusion and ADC through the brain. After the administration of contrast, axial 3D VIBE of the cranial vasculature and brain. Brain MRA: Non-contrast 3-D time of flight MR angiogram, with multiple kkeiidy-xxlcasuea-kvajirhtfd (MIP) reformats performed. Neck MRA: Axial and sagittal TruFISP through the neck. Coronal dynamic MR angiogram during administration of contrast in the arterial and venous phases, with 3-dimenstional csufsgo-naxpzhmoa-qhdoiconpc (MIP) reformats constructed from subtraction images. COMPARISON: , CT, CT HEAD/BRAIN WO CON, 06/06/2022, 17:14. FINDINGS: Image quality: Excellent. BRAIN: CSF spaces: There is mild cerebral volume loss with prominence of the ventricles and sulci. Basal cisterns are patent. No extra-axial fluid collections. Brain: Diffusion weighted images demonstrate no acute infarcts. No intracranial hemorrhage, mass, or mass effect. The foster-white matter junction appears preserved. Brainstem appears normal. Normal intravascular flow voids are present. No abnormal intracranial enhancement. Skull and face: Calvarial marrow signal is normal. Orbits appear normal. Sinuses: Sinuses and mastoids are clear. BRAIN MR ANGIOGRAM: Anterior circulation: Intracranial internal carotid arteries are normal in size and patent bilaterally. The flow within the paired anterior cerebral arteries is symmetric and patent bilaterally. The flow within the middle cerebral arteries is symmetric and patent bilaterally. The anterior communicating artery is patent. No high-grade stenoses, occlusions, or aneurysms. Posterior circulation: The visualized portions of the vertebral arteries are patent and join to form a patent basilar artery. The flow within the posterior cerebral arteries is symmetric and patent bilaterally. There are bilateral posterior communicating arteries. No high-grade stenoses, occlusions, or aneurysms. NECK MR ANGIOGRAM: Carotids: Great vessels demonstrate a bovine aortic arch with common origin of the right brachiocephalic and left common carotid arteries as they arise from the aortic arch. The origins of the common carotid arteries appear patent. The calibers and courses of both common carotid arteries are normal. The carotid bulbs appear widely patent. The internal carotid arteries demonstrate normal course and caliber. Posterior circulation: The origins of the vertebral arteries appear patent. More superior portions of both vertebral arteries demonstrate normal course and caliber, and join to form a normal appearing basilar artery. Miscellaneous: Subclavian arteries appear patent. Pre-contrast images through the neck demonstrate moderate spinal canal narrowing at C3-C4. IMPRESSION: BRAIN MRI: 1. No infarct or other acute intracranial abnormality. 2. Mild cerebral volume loss. BRAIN MR ANGIOGRAM: 1. No high-grade stenosis or occlusion of the central intracranial arteries. NECK MR ANGIOGRAM: 1. No high-grade stenosis or occlusion of the head and neck arteries. The carotid bulbs appear widely patent. Dictated by: Torey Niño M.D. on 06/06/2022 at 20:03 Approved by: Torey Niño M.D. on 06/06/2022 at 20:12
[2022-06-06] MEDS: diazePAM 10 MG/2 ML SYRINGE 2 MG IV ×2 (17:49→18:15)
[2022-06-06] MEDS: KETOROLAC 30 MG/ML VIAL 10 MG IV (23:06)
[2022-06-06] MEDS: HYDROCODONE/ACET 5/325 PREPACK 1 BOTTLE MISC (23:06)
== END 2022-06-06 23:24 | disposition home or self-care (01) ==
PROVIDERS: Emergency Medicine; Emergency Provider Emergency Medicine; PCP Student in an Organized Health Care Education/Training Program
DX: R51.9 Headache, unspecified (principal); M50.30 Other cervical disc degeneration, unspecified cervical region
CPT/HCPCS: 70450; 70548; 70553; 80048; 82962; 85025; 93005; 96374; 96375; 99284; A9579; J1885; J3360

== ENCOUNTER → 2022-09-30 11:03 | Outpatient (RCR) | payer OTHER, SELFPAY ==
--- NOTE | 2021-07-29 13:55 | PT.OTN ---
Current Diagnoses Low back pain (07/25/21) Physical Therapy Treatment Note PT-OP-A Visit Information Start: 07/24/21 09:54 Freq: Status: Active Protocol: Document 07/29/21 13:26 LJ (Rec: 07/29/21 13:55 LJ [email or web address]) Out-Patient Physical Therapy Visit Information Visit Information Visit Type Aquatic Treatment Note Visit Start Time 10:15 Visit Stop Time 11:00 Total Visit Minutes 45 Visit Number 2 Number of MATERIALS CLERK Visits 1 Evaluation Information Evaluation Date 07/25/21 Precautions Precautions PMH: arthritis, back pain, HTN, CHF, demnetia, depression , DM, dizziness, headaches, TLINGIT & HAIDA, jaw pain, kidney disease, neck pain, neuropathy, PTSD, wears glasses. Patient did not bring medication list today PT-OP-B Current Condition Start: 07/24/21 09:54 Freq: Status: Active Protocol: Document 07/25/21 10:31 SAK (Rec: 07/25/21 11:14 SAK [id number]) Current Condition History of Current Condition Onset Date 1969' Current Complaints LBP,sciatica fuad knee pain, bilateral shoulder pain History of Current Condition Long history of pain since was in [employer]. Has had bilateral shoulder surgeries and has limited function, persistent LBP, bilateral knee pain left greater than right. Was supposed to get TKA's bilaterally in February was cancelled due to of his mother , then scheduled in May was cancelled due to Covid numbers in hospital , then July cancelled again due to Covid numbers. Now patient waiting for shots to knees to try instead of surgery first (Hyalgan injections); will get at . Has had other shots in his knees including Synvisc which was helpful for awhile but then stopped workinig for him. Has decreased his weight from 270 to 240. Uses cane or walker for mobility. For HEP doing leg lifts at home, small weights for shoulder. Has benefited from aquatic PT in the past. Prior Treatments and Tests chiropractic, aquatic PT, bilaterl shoulder surgery Future Testing and Treatments Planned Sees podiatry tomorrow for ingrown toenails. Getting Covid-19 booster. Treatment Goals Patient/Caregiver Goals Relieve some of the pain, be able to walk better. Prior Functional Status Baseline Function- ADL's Modified Independent Baseline Function- Mobility Modified Independent Current Functional Impairments (Reported) Functional Limitations- ADL's painful Functional Limitations- Mobility/Gait uses cane or walker Functional Limitations- Work/School retired Personal Factors Other Personal Factors That May Effect mom , depression Therapy/Recovery PT-OP-C Subjective Start: 07/24/21 09:54 Freq: Status: Active Protocol: Document 07/29/21 13:26 LJ (Rec: 07/29/21 13:55 LJ [id number]) OP-PT Subjective Patient Comments Patient Comments Pt states he is glad to be back in the water. Endorses increased pain in L knee over right. PT-OP-D Balance Start: 07/24/21 09:54 Freq: Status: Active Protocol: Document 07/25/21 10:31 SAK (Rec: 07/28/21 08:29 SAK [id number]) OP-PT Balance Assessment Sitting Balance Static Sitting Balance Ability Normal Standing Balance Static Standing Balance Ability Fair Dynamic Standing Balance Ability Fair Balance Tests Other Other Balance Tests Performed unable to tolerate due to pain Rider Fall Scale Copyright Permission PT-OP-E Functional Tests Start: 07/24/21 09:54 Freq: Status: Active Protocol: Document 07/25/21 10:31 SAK (Rec: 07/25/21 11:14 SAK [id number]) Functional Tests Five Times Sit to Stand Test Score 33 Comments using cane PT-OP-F Manual Assessment Start: 07/24/21 09:54 Freq: Status: Active Protocol: Document 07/25/21 10:31 SAK (Rec: 07/28/21 08:29 SAK [id number]) Manual Assessments Other Manual Assessments Other Manual Assessments Patient has multiple areas of tenderness throughout shoulders, spine, and LE's especially knees. PT-OP-G Mobility & Gait Start: 07/24/21 09:54 Freq: Status: Active Protocol: Document 07/25/21 10:31 SAK (Rec: 07/28/21 08:29 SAK [id number]) OP Mobility Evaluation Bed Mobility Rolling indep but labored Supine to and from Sit indep but labored Transfers Sit to Stand 5x sit to stand test 47 sec Bed to Chair Transfers indep Car Transfers indep Floor Transfers NA OP Gait Assessment Gait Gait Assistance Required: Independent Distance (Feet) 50 Assistive Devices Assistive Device Straight Cane Gait Deviations General Gait Pattern Antalgic,Decreased Stride Length,Decreased Feet Clearance Factors Limiting Gait Function Factors Limiting Gait Function Decreased Strength,Limited Range of Motion,Pain Stair Climbing Evaluation Devices Stair Climbing Assistive Devices Left Railing,Right Railing Technique/Endurance Stair Climbing Technique Step to Step PT-OP-H Neuro Start: 07/24/21 09:54 Freq: Status: Active Protocol: Document 07/25/21 10:31 SAK (Rec: 07/28/21 08:29 SAK [id number]) Sensation Evaluation Gross Sensation Gross Sensation Left LE Impaired,Right LE Impaired Sensation Description Numbness PT-OP-J Posture/Palpation/Skin Start: 07/24/21 09:54 Freq: Status: Active Protocol: Document 07/25/21 10:31 SAK (Rec: 07/25/21 11:14 SAK [id number]) Posture Evaluation Position Standing Head/C-Spine Posture Side Bent Right,C-Spine Flattened T-Spine Posture Increased Kyphosis L-Spine Posture Rotation Right,Increased Lordosis Shoulder Subluxation Degree (R) < 1 Finger wide Scapula Posture (L) Protracted Arm Posture (R) Internally Rotated Knee Posture (L) Genu Varus,(R) Genu Varus Palpation Assessment Location left knee Palpation Findings Tenderness Palpation Details medial joint line PT-OP-K Range of Motion Start: 07/24/21 09:54 Freq: Status: Active Protocol: Document 07/25/21 10:31 SAK (Rec: 07/25/21 11:14 SAK [id number]) Cervical Spine Range of Motion Cervical Spine Active ROM Limitations Soft Tissue Tightness,Bony Restriction,Pain Comments mod decrease all motions Lumbar Spine Range of Motion Lumbar Spine Active ROM Limitations Soft Tissue Tightness,Pain Comments mod decrease all motions PT-OP-L Special Tests Start: 07/24/21 09:54 Freq: Status: Active Protocol: Document 07/25/21 10:31 SAK (Rec: 07/28/21 08:29 SAK [id number]) Special Tests Lumbar Spine Special Tests 1 Comments too painful Shoulder Special Tests 1 Comments too painful Knee Special Tests 1 Comments unable to tolerate due to pain all movement or tests PT-OP-M Strength Start: 07/24/21 09:54 Freq: Status: Active Protocol: Document 07/25/21 10:31 SAK (Rec: 07/28/21 08:29 SAK [id number]) Shoulder Strength Shoulder Manual Muscle Testing fuad Flexion 3- Fair- Extension 3- Fair- Abduction (C5) 3- Fair- External Rotation 3- Fair- Internal Rotation 3- Fair- Horizontal Abduction 3- Fair- Horizontal Adduction 3- Fair- Elbow/Forearm Strength Elbow and Forearm Manual Muscle Testing fuad Flexion (C6) 4 Good Extension (C7) 4 Good Hip Strength Hip Manual Muscle Testing fuad Flexion (L2) 3+ Fair+ Extension (S1) 3- Fair- Abduction 3+ Fair+ Adduction 3+ Fair+ External Rotation 3+ Fair+ Knee Strength Knee Manual Muscle Testing fuad Flexion (S2) 4- Good- Extension (L3) 4- Good- Comments painful Ankle/Foot Strength Ankle and Foot Manual Muscle Testing fuad Dorsiflexion (L4) 4 Good Plantarflexion (S1) 4 Good PT-OP-Q Treatments Start: 07/24/21 09:54 Freq: Status: Active Protocol: Document 07/25/21 10:31 SAK (Rec: 07/28/21 08:29 SAK [id number]) Self-Care/Home Management Treatment Education Patient Education Fall Risk,Pain Management, Safety PT-OP-S Aquatic Treatment Start: 07/24/21 09:54 Freq: Status: Active Protocol: Document 07/29/21 13:26 LJ (Rec: 07/29/21 13:55 LJ [email or web address]) Aquatics Treatment Pool Entry/Exit Pool Entry/Exit Method Stairs Assistance Standby Assistance Comments pt sat in a chair next to stairsx2 minutes post tx, exited w/4WW Water Walking jogging Water Level Chest Level Comments self initiated; 3x roughly 30 sec several times during session backward Water Level Chest Level Level of Assistance Standby Assistance,Verbal Cues Marching Water Level Chest Level Level of Assistance Standby Assistance,Verbal Cues Comments half lap; pt states too painful for L knee Sideways Water Level Chest Level Level of Assistance Independent Comments HABD/HADD; lateral ab,ad arms Forwards Water Level Chest Level Level of Assistance Verbal Cues Comments 6 laps throughout session Lower Extremity Exercises knee flex/ext Details at wall Body Position Standing Water Level Chest Level Reps/Duration 10 x 2; B Comments 10 sec isometric hold pushing against wall every 5th rep squats Details mini Body Position Standing Water Level Chest Level Equipment Ankle Weight- 7.0# Reps/Duration 10 Comments picking up #7 wt off stairs then sideways step to place wts on lift chair 1 Details Hip flexion/ext, Hip AB, circles Lower Extremity Stretches HS Details hs Body Position Standing Water Level Chest Level Reps/Duration 30 sec Comments on stairs 3 Details Single knee to chest Reps/Duration 1 min bilat Comments therapist assist 2 Details quad stretch Body Position Standing Water Level Chest Level Equipment small moodle Reps/Duration 30 sec right only Comments L knee too painful 1 Details Calf Stretch Body Position Standing Water Level Waist Level Equipment off edge of step Reps/Duration 2 reps Comments at stairs Upper Extremity Exercises lat pull downs Comments with walking activities shoulder flex/ext Comments with walking activities Upper Extremity Stretches chest stretch Details forward arms open Body Position Standing Water Level Chest Level Comments cues for relaxing shoulders; no equipment Spinal Exercises 1 Details cervical spine AROM Body Position Standing Water Level Neck Level Reps/Duration 5 reps each Balance step ups Details low step Body Position Standing Reps/Duration 10 B each direction [place] Activities [place] Activities Bicycle,Bicycle Backwards, Cross Country Equipment blue float Duration 12 PT-OP-T Assessment and Plan Start: 07/24/21 09:54 Freq: Status: Active Protocol: Document 07/29/21 13:26 CHRISTINA (Rec: 07/29/21 13:55 CHRISTINA [email or web address]) Physical Therapy Assessment Rehab Potential Rehabilitation Potential Good Evaluation Complexity Number of Personal Factors/Comorbidities 3 or More Number of Body Systems Impaired 4 or More Clinical Presentation at Evaluation Evolving Impairments Impairments Activity Tolerance,Pain,ROM, Strength Goals Four Impairment functional strength Impairment 5x sit to stand test 47 seconds Nursing Home Goal (LTG) Patient will be able to sit to stand x5 in no greater than 30 sec as measure of improved LE functional strength LTG Duration 09/23/21 Three Impairment ROM and strength Impairment Patient has deficits in ROM and strength throughout his shoulders, spine, and LE's with poor tolerance for activity or exercise Short Term Goal (STG) Patient will be able to tolerate 45 min aquatic exercise program with minimal to no increase in pain for purposes of ROM, strengthening , pain management STG Duration Inspection Machine Tender Goal (LTG) Patient will be safe and independent with aquatic exercise program for long-term fitness and pain management and demonstrate improved ROM and strength with demonstrated improved ability to perform his ADL's in the home. LTG Duration 09/23/21 Two Impairment Activity tolerance Impairment Oswestry disability index score 66% Short Term Goal (STG) Decrease ALEKS score to no greater than 50% STG Duration 08/25/21 Nursing Home Goal (LTG) Decrease ALEKS score to no greater than 40% as measure of improved activity tolerence and quality of life LTG Duration 09/23/21 One Impairment Activity tolerance Impairment Lower extremity functional scale 23% Short Term Goal (STG) Improve LEFS score to at least 40% STG Duration 08/25/21 Nursing Home Goal (LTG) Improve LEFS to at least 60% as measure of improved activity tolerance and quality of life LTG Duration 09/23/21 Assessment Summary Assessment Pt glad to be back in the water. Reported greater pain in L knee than right this session. States weight bearing activities less painful that open chain in pool. Contunue aquatic therapy for increased exercise compliance, improving activity tolerance, and reducing pain during mobility. Physical Therapy Plan Frequency and Duration Frequency of Treatment 2x/Week Duration of Treatment 8 weeks Plan of Care Start Date 07/25/21 Plan of Care End Date 09/23/21 Therapeutic Interventions Therapeutic Interventions Aquatic Therapy,Patient/ Caregiver Education,Self-Care/ Home Management Next Visit Focus/Plan Next Note Type Treatment Note Next Visit Plan Initiate aquatic PT
--- NOTE | 2021-08-05 08:15 | PT-OP ANOTE ---
cancelled due to having tooth pulled on Thursday, not feeling well.
--- NOTE | 2021-08-07 09:11 | PT-OP ANOTE ---
cancelled due to root canal
--- NOTE | 2021-08-12 14:27 | PT.OTN ---
Current Diagnoses Low back pain, unspecified (08/12/21) Physical Therapy Treatment Note PT-OP-A Visit Information Start: 07/24/21 09:54 Freq: Status: Active Protocol: Document 08/12/21 14:12 LJ (Rec: 08/12/21 14:27 LJ [id number]) Out-Patient Physical Therapy Visit Information Visit Information Visit Type Treatment Note Visit Start Time 10:12 Visit Stop Time 10:56 Total Visit Minutes 44 Number of DEBURR OPERATOR Visits 2 Precautions Precautions PMH: arthritis, back pain, HTN, CHF, demnetia, depression , DM, dizziness, headaches, [place], jaw pain, kidney disease, neck pain, neuropathy, PTSD, wears glasses. Patient did not bring medication list today PT-OP-B Current Condition Start: 07/24/21 09:54 Freq: Status: Active Protocol: Document 07/25/21 10:31 SAK (Rec: 07/25/21 11:14 SAK [id number]) Current Condition History of Current Condition Onset Date 1969' Current Complaints LBP,sciatica fuad knee pain, bilateral shoulder pain History of Current Condition Long history of pain since was in [employer]. Has had bilateral shoulder surgeries and has limited function, persistent LBP, bilateral knee pain left greater than right. Was supposed to get TKA's bilaterally in February was cancelled due to of his mother , then scheduled in May was cancelled due to Covid numbers in hospital , then July cancelled again due to Covid numbers. Now patient waiting for shots to knees to try instead of surgery first (Hyalgan injections); will get at . Has had other shots in his knees including Synvisc which was helpful for awhile but then stopped workinig for him. Has decreased his weight from 270 to 240. Uses cane or walker for mobility. For HEP doing leg lifts at home, small weights for shoulder. Has benefited from aquatic PT in the past. Prior Treatments and Tests chiropractic, aquatic PT, bilaterl shoulder surgery Future Testing and Treatments Planned Sees podiatry tomorrow for ingrown toenails. Getting Covid-19 booster. Treatment Goals Patient/Caregiver Goals Relieve some of the pain, be able to walk better. Prior Functional Status Baseline Function- ADL's Modified Independent Baseline Function- Mobility Modified Independent Current Functional Impairments (Reported) Functional Limitations- ADL's painful Functional Limitations- Mobility/Gait uses cane or walker Functional Limitations- Work/School retired Personal Factors Other Personal Factors That May Effect mom , depression Therapy/Recovery PT-OP-C Subjective Start: 07/24/21 09:54 Freq: Status: Active Protocol: Document 08/12/21 14:12 LJ (Rec: 08/12/21 14:27 LJ [id number]) OP-PT Subjective Patient Comments Patient Comments Pt states he was in bad shape after a proceedure last week . He got an injection in his L knee last week and has not moved much so worried it has gotten stuck in the knee joint. Stated he needs to take it easy today. PT-OP-D Balance Start: 07/24/21 09:54 Freq: Status: Active Protocol: Document 07/25/21 10:31 SAK (Rec: 07/28/21 08:29 SAK [id number]) OP-PT Balance Assessment Sitting Balance Static Sitting Balance Ability Normal Standing Balance Static Standing Balance Ability Fair Dynamic Standing Balance Ability Fair Balance Tests Other Other Balance Tests Performed unable to tolerate due to pain Rider Fall Scale Copyright Permission PT-OP-E Functional Tests Start: 07/24/21 09:54 Freq: Status: Active Protocol: Document 07/25/21 10:31 SAK (Rec: 07/25/21 11:14 SAK [id number]) Functional Tests Five Times Sit to Stand Test Score 33 Comments using cane PT-OP-F Manual Assessment Start: 07/24/21 09:54 Freq: Status: Active Protocol: Document 07/25/21 10:31 SAK (Rec: 07/28/21 08:29 SAK [id number]) Manual Assessments Other Manual Assessments Other Manual Assessments Patient has multiple areas of tenderness throughout shoulders, spine, and LE's especially knees. PT-OP-G Mobility & Gait Start: 07/24/21 09:54 Freq: Status: Active Protocol: Document 07/25/21 10:31 SAK (Rec: 07/28/21 08:29 SAK [id number]) OP Mobility Evaluation Bed Mobility Rolling indep but labored Supine to and from Sit indep but labored Transfers Sit to Stand 5x sit to stand test 47 sec Bed to Chair Transfers indep Car Transfers indep Floor Transfers NA OP Gait Assessment Gait Gait Assistance Required: Independent Distance (Feet) 50 Assistive Devices Assistive Device Straight Cane Gait Deviations General Gait Pattern Antalgic,Decreased Stride Length,Decreased Feet Clearance Factors Limiting Gait Function Factors Limiting Gait Function Decreased Strength,Limited Range of Motion,Pain Stair Climbing Evaluation Devices Stair Climbing Assistive Devices Left Railing,Right Railing Technique/Endurance Stair Climbing Technique Step to Step PT-OP-H Neuro Start: 07/24/21 09:54 Freq: Status: Active Protocol: Document 07/25/21 10:31 SAK (Rec: 07/28/21 08:29 [facility] [id number]) Sensation Evaluation Gross Sensation Gross Sensation Left LE Impaired,Right LE Impaired Sensation Description Numbness PT-OP-J Posture/Palpation/Skin Start: 07/24/21 09:54 Freq: Status: Active Protocol: Document 07/25/21 10:31 SAK (Rec: 07/25/21 11:14 [facility] [id number]) Posture Evaluation Position Standing Head/C-Spine Posture Side Bent Right,C-Spine Flattened T-Spine Posture Increased Kyphosis L-Spine Posture Rotation Right,Increased Lordosis Shoulder Subluxation Degree (R) < 1 Finger wide Scapula Posture (L) Protracted Arm Posture (R) Internally Rotated Knee Posture (L) Genu Varus,(R) Genu Varus Palpation Assessment Location left knee Palpation Findings Tenderness Palpation Details medial joint line PT-OP-K Range of Motion Start: 07/24/21 09:54 Freq: Status: Active Protocol: Document 07/25/21 10:31 SAK (Rec: 07/25/21 11:14 [facility] [id number]) Cervical Spine Range of Motion Cervical Spine Active ROM Limitations Soft Tissue Tightness,Bony Restriction,Pain Comments mod decrease all motions Lumbar Spine Range of Motion Lumbar Spine Active ROM Limitations Soft Tissue Tightness,Pain Comments mod decrease all motions PT-OP-L Special Tests Start: 07/24/21 09:54 Freq: Status: Active Protocol: Document 07/25/21 10:31 SAK (Rec: 07/28/21 08:29 [facility] [id number]) Special Tests Lumbar Spine Special Tests 1 Comments too painful Shoulder Special Tests 1 Comments too painful Knee Special Tests 1 Comments unable to tolerate due to pain all movement or tests PT-OP-M Strength Start: 07/24/21 09:54 Freq: Status: Active Protocol: Document 07/25/21 10:31 SAK (Rec: 07/28/21 08:29 SAK [id number]) Shoulder Strength Shoulder Manual Muscle Testing fuad Flexion 3- Fair- Extension 3- Fair- Abduction (C5) 3- Fair- External Rotation 3- Fair- Internal Rotation 3- Fair- Horizontal Abduction 3- Fair- Horizontal Adduction 3- Fair- Elbow/Forearm Strength Elbow and Forearm Manual Muscle Testing fuad Flexion (C6) 4 Good Extension (C7) 4 Good Hip Strength Hip Manual Muscle Testing fuad Flexion (L2) 3+ Fair+ Extension (S1) 3- Fair- Abduction 3+ Fair+ Adduction 3+ Fair+ External Rotation 3+ Fair+ Knee Strength Knee Manual Muscle Testing fuad Flexion (S2) 4- Good- Extension (L3) 4- Good- Comments painful Ankle/Foot Strength Ankle and Foot Manual Muscle Testing fuad Dorsiflexion (L4) 4 Good Plantarflexion (S1) 4 Good PT-OP-Q Treatments Start: 07/24/21 09:54 Freq: Status: Active Protocol: Document 07/25/21 10:31 SAK (Rec: 07/28/21 08:29 [facility] [id number]) Self-Care/Home Management Treatment Education Patient Education Fall Risk,Pain Management, Safety PT-OP-S Aquatic Treatment Start: 07/24/21 09:54 Freq: Status: Active Protocol: Document 08/12/21 14:12 CHRISTINA (Rec: 08/12/21 14:27 CHRISTINA [id number]) Aquatics Treatment Pool Entry/Exit Pool Entry/Exit Method Stairs Assistance Standby Assistance Comments pt sat in a chair next to stairsx2 minutes post tx, exited w/4WW Water Walking jogging Water Level Chest Level Comments self initiated; 3x roughly 30 sec several times during session backward Water Level Chest Level Level of Assistance Standby Assistance,Verbal Cues [place] March Water Level Chest Level Comments opp hand to knee Marching Water Level Chest Level Level of Assistance Standby Assistance,Verbal Cues Comments no c/o pain this session Sideways Water Level Chest Level Level of Assistance Independent Comments HABD/HADD; lateral ab,ad arms Forwards Water Level Chest Level Level of Assistance Verbal Cues Comments 7 laps throughout session Lower Extremity Exercises knee flex/ext Details at wall Body Position Standing Water Level Chest Level Reps/Duration 10 x 2; B squats Details mini Body Position Standing Water Level Chest Level Reps/Duration 10 Lower Extremity Stretches HS Details hs Body Position Standing Water Level Chest Level Reps/Duration 30 sec Comments on stairs 2 Details quad stretch Body Position Standing Water Level Chest Level Equipment small moodle Reps/Duration 30 sec right only Comments L knee too painful 1 Details Calf Stretch Body Position Standing Water Level Waist Level Equipment off edge of step Reps/Duration 2 reps Comments at stairs Upper Extremity Exercises forward and reverse breast stroke Body Position Standing Water Level Neck Level Reps/Duration 12 both directions Upper Extremity Stretches chest stretch Details forward arms open Water Level Chest Level Comments cues for relaxing shoulders; no equipment Spinal Exercises 1 Details cervical spine AROM Body Position Standing Water Level Neck Level Reps/Duration 5 reps each Balance SLS bilat Details mini squats Water Level Chest Level Reps/Duration 10 B [place] Activities [place] Activities Bicycle,Cross Country Equipment blue float Duration 12 PT-OP-T Assessment and Plan Start: 07/24/21 09:54 Freq: Status: Active Protocol: Document 08/12/21 14:12 CHRISTINA (Rec: 08/12/21 14:27 CHRISTINA [email or web address]) Physical Therapy Assessment Rehab Potential Rehabilitation Potential Good Evaluation Complexity Number of Personal Factors/Comorbidities 3 or More Number of Body Systems Impaired 4 or More Clinical Presentation at Evaluation Evolving Impairments Impairments Activity Tolerance,Pain,ROM, Strength Goals Four Impairment functional strength Impairment 5x sit to stand test 47 seconds Jail Goal (LTG) Patient will be able to sit to stand x5 in no greater than 30 sec as measure of improved LE functional strength LTG Duration 09/23/21 Three Impairment ROM and strength Impairment Patient has deficits in ROM and strength throughout his shoulders, spine, and LE's with poor tolerance for activity or exercise Short Term Goal (STG) Patient will be able to tolerate 45 min aquatic exercise program with minimal to no increase in pain for purposes of ROM, strengthening , pain management STG Duration Operating Room Tech Goal (LTG) Patient will be safe and independent with aquatic exercise program for long-term fitness and pain management and demonstrate improved ROM and strength with demonstrated improved ability to perform his ADL's in the home. LTG Duration 09/23/21 Two Impairment Activity tolerance Impairment Oswestry disability index score 66% Short Term Goal (STG) Decrease ALEKS score to no greater than 50% STG Duration 08/25/21 Jail Goal (LTG) Decrease ALEKS score to no greater than 40% as measure of improved activity tolerence and quality of life LTG Duration 09/23/21 One Impairment Activity tolerance Impairment Lower extremity functional scale 23% Short Term Goal (STG) Improve LEFS score to at least 40% STG Duration 08/25/21 Operating Room Tech Goal (LTG) Improve LEFS to at least 60% as measure of improved activity tolerance and quality of life LTG Duration 09/23/21 Assessment Summary Assessment Pt exited pool a couple of minutes early due to fatigue. Admitted he didn't follow plan to work at a lower pace and level of exertion. Continues to self-direct his exercise session. Physical Therapy Plan Frequency and Duration Frequency of Treatment 2x/Week Duration of Treatment 8 weeks Plan of Care Start Date 07/25/21 Plan of Care End Date 09/23/21 Therapeutic Interventions Therapeutic Interventions Aquatic Therapy,Patient/ Caregiver Education,Self-Care/ Home Management Next Visit Focus/Plan Next Note Type Treatment Note Next Visit Plan Progress aquatic PT strengthening as tolerated
--- NOTE | 2021-08-14 14:04 | PT.OTN ---
Current Diagnoses Low back pain, unspecified (08/12/21) Physical Therapy Treatment Note PT-OP-A Visit Information Start: 07/24/21 09:54 Freq: Status: Active Protocol: Document 08/14/21 13:46 [facility] (Rec: 08/14/21 14:03 [facility] [id number]) Out-Patient Physical Therapy Visit Information Visit Information Visit Type Treatment Note Visit Start Time 11:45 Visit Stop Time 12:30 Total Visit Minutes 45 Visit Number [address] SCAN SPECIAL PROCEDURES TECHNOLOGIST Visits 0 Precautions Precautions PMH: arthritis, back pain, HTN, CHF, demnetia, depression , DM, dizziness, headaches, [place], jaw pain, kidney disease, neck pain, neuropathy, PTSD, wears glasses. Patient did not bring medication list today PT-OP-B Current Condition Start: 07/24/21 09:54 Freq: Status: Active Protocol: Document 07/25/21 10:31 [facility] (Rec: 07/25/21 11:14 [facility] [id number]) Current Condition History of Current Condition Onset Date 1969' Current Complaints LBP,sciatica fuad knee pain, bilateral shoulder pain History of Current Condition Long history of pain since was in [employer]. Has had bilateral shoulder surgeries and has limited function, persistent LBP, bilateral knee pain left greater than right. Was supposed to get TKA's bilaterally in February was cancelled due to of his mother , then scheduled in May was cancelled due to Covid numbers in hospital , then July cancelled again due to Covid numbers. Now patient waiting for shots to knees to try instead of surgery first (Hyalgan injections); will get at . Has had other shots in his knees including Synvisc which was helpful for awhile but then stopped workinig for him. Has decreased his weight from 270 to 240. Uses cane or walker for mobility. For HEP doing leg lifts at home, small weights for shoulder. Has benefited from aquatic PT in the past. Prior Treatments and Tests chiropractic, aquatic PT, bilaterl shoulder surgery Future Testing and Treatments Planned Sees podiatry tomorrow for ingrown toenails. Getting Covid-19 booster. Treatment Goals Patient/Caregiver Goals Relieve some of the pain, be able to walk better. Prior Functional Status Baseline Function- ADL's Modified Independent Baseline Function- Mobility Modified Independent Current Functional Impairments (Reported) Functional Limitations- ADL's painful Functional Limitations- Mobility/Gait uses cane or walker Functional Limitations- Work/School retired Personal Factors Other Personal Factors That May Effect mom , depression Therapy/Recovery PT-OP-C Subjective Start: 07/24/21 09:54 Freq: Status: Active Protocol: Document 08/14/21 13:46 SAK (Rec: 08/14/21 14:03 SAK [id number]) OP-PT Subjective Patient Comments Patient Comments Minimal sleep after being in the hospital with his mother- in law last night. Had last injection yesterday, doctor said ok to do aquatic PT today . PT-OP-D Balance Start: 07/24/21 09:54 Freq: Status: Active Protocol: Document 07/25/21 10:31 SAK (Rec: 07/28/21 08:29 SAK [id number]) OP-PT Balance Assessment Sitting Balance Static Sitting Balance Ability Normal Standing Balance Static Standing Balance Ability Fair Dynamic Standing Balance Ability Fair Balance Tests Other Other Balance Tests Performed unable to tolerate due to pain Rider Fall Scale Copyright Permission PT-OP-E Functional Tests Start: 07/24/21 09:54 Freq: Status: Active Protocol: Document 07/25/21 10:31 SAK (Rec: 07/25/21 11:14 SAK [id number]) Functional Tests Five Times Sit to Stand Test Score 33 Comments using cane PT-OP-F Manual Assessment Start: 07/24/21 09:54 Freq: Status: Active Protocol: Document 07/25/21 10:31 SAK (Rec: 07/28/21 08:29 SAK [id number]) Manual Assessments Other Manual Assessments Other Manual Assessments Patient has multiple areas of tenderness throughout shoulders, spine, and LE's especially knees. PT-OP-G Mobility & Gait Start: 07/24/21 09:54 Freq: Status: Active Protocol: Document 07/25/21 10:31 SAK (Rec: 07/28/21 08:29 SAK [id number]) OP Mobility Evaluation Bed Mobility Rolling indep but labored Supine to and from Sit indep but labored Transfers Sit to Stand 5x sit to stand test 47 sec Bed to Chair Transfers indep Car Transfers indep Floor Transfers NA OP Gait Assessment Gait Gait Assistance Required: Independent Distance (Feet) 50 Assistive Devices Assistive Device Straight Cane Gait Deviations General Gait Pattern Antalgic,Decreased Stride Length,Decreased Feet Clearance Factors Limiting Gait Function Factors Limiting Gait Function Decreased Strength,Limited Range of Motion,Pain Stair Climbing Evaluation Devices Stair Climbing Assistive Devices Left Railing,Right Railing Technique/Endurance Stair Climbing Technique Step to Step PT-OP-H Neuro Start: 07/24/21 09:54 Freq: Status: Active Protocol: Document 07/25/21 10:31 SAK (Rec: 07/28/21 08:29 SAK [id number]) Sensation Evaluation Gross Sensation Gross Sensation Left LE Impaired,Right LE Impaired Sensation Description Numbness PT-OP-J Posture/Palpation/Skin Start: 07/24/21 09:54 Freq: Status: Active Protocol: Document 07/25/21 10:31 SAK (Rec: 07/25/21 11:14 SAK [id number]) Posture Evaluation Position Standing Head/C-Spine Posture Side Bent Right,C-Spine Flattened T-Spine Posture Increased Kyphosis L-Spine Posture Rotation Right,Increased Lordosis Shoulder Subluxation Degree (R) < 1 Finger wide Scapula Posture (L) Protracted Arm Posture (R) Internally Rotated Knee Posture (L) Genu Varus,(R) Genu Varus Palpation Assessment Location left knee Palpation Findings Tenderness Palpation Details medial joint line PT-OP-K Range of Motion Start: 07/24/21 09:54 Freq: Status: Active Protocol: Document 07/25/21 10:31 SAK (Rec: 07/25/21 11:14 [facility] [id number]) Cervical Spine Range of Motion Cervical Spine Active ROM Limitations Soft Tissue Tightness,Bony Restriction,Pain Comments mod decrease all motions Lumbar Spine Range of Motion Lumbar Spine Active ROM Limitations Soft Tissue Tightness,Pain Comments mod decrease all motions PT-OP-L Special Tests Start: 07/24/21 09:54 Freq: Status: Active Protocol: Document 07/25/21 10:31 SAK (Rec: 07/28/21 08:29 SAK [id number]) Special Tests Lumbar Spine Special Tests 1 Comments too painful Shoulder Special Tests 1 Comments too painful Knee Special Tests 1 Comments unable to tolerate due to pain all movement or tests PT-OP-M Strength Start: 07/24/21 09:54 Freq: Status: Active Protocol: Document 07/25/21 10:31 SAK (Rec: 07/28/21 08:29 SAK [id number]) Shoulder Strength Shoulder Manual Muscle Testing fuad Flexion 3- Fair- Extension 3- Fair- Abduction (C5) 3- Fair- External Rotation 3- Fair- Internal Rotation 3- Fair- Horizontal Abduction 3- Fair- Horizontal Adduction 3- Fair- Elbow/Forearm Strength Elbow and Forearm Manual Muscle Testing fuad Flexion (C6) 4 Good Extension (C7) 4 Good Hip Strength Hip Manual Muscle Testing fuad Flexion (L2) 3+ Fair+ Extension (S1) 3- Fair- Abduction 3+ Fair+ Adduction 3+ Fair+ External Rotation 3+ Fair+ Knee Strength Knee Manual Muscle Testing fuad Flexion (S2) 4- Good- Extension (L3) 4- Good- Comments painful Ankle/Foot Strength Ankle and Foot Manual Muscle Testing fuad Dorsiflexion (L4) 4 Good Plantarflexion (S1) 4 Good PT-OP-Q Treatments Start: 07/24/21 09:54 Freq: Status: Active Protocol: Document 07/25/21 10:31 [facility] (Rec: 07/28/21 08:29 [facility] [id number]) Self-Care/Home Management Treatment Education Patient Education Fall Risk,Pain Management, Safety PT-OP-S Aquatic Treatment Start: 07/24/21 09:54 Freq: Status: Active Protocol: Document 08/14/21 13:46 [facility] (Rec: 08/14/21 14:03 [facility] [id number]) Aquatics Treatment Pool Entry/Exit Pool Entry/Exit Method Stairs Assistance Standby Assistance Comments pt sat in a chair next to stairsx2 minutes post tx, exited w/4WW Water Walking jogging Water Level Chest Level Comments 3x roughly 30 sec several times during session backward Water Level Chest Level Level of Assistance Standby Assistance,Verbal Cues [place] March Water Level Chest Level Comments opp hand to knee Marching Water Level Chest Level Level of Assistance Standby Assistance,Verbal Cues Comments no c/o pain this session Sideways Water Level Chest Level Level of Assistance Independent Comments HABD/HADD; lateral ab,ad arms Forwards Water Level Chest Level Level of Assistance Verbal Cues Comments 7 laps throughout session Lower Extremity Exercises knee flex/ext Details at wall Body Position Standing Water Level Chest Level Reps/Duration 10 x 2; B squats Details mini Body Position Standing Water Level Chest Level Reps/Duration 10 1 Details Hip flexion/ext, Hip AB, circles Reps/Duration 12x Comments also figure 8's Lower Extremity Stretches 1 Details Calf Stretch Body Position Standing Water Level Waist Level Equipment off edge of step Reps/Duration 2 reps Comments at stairs [place] Activities [place] Activities Bicycle,Cross Country,Hip Abduction/Adduction,Sit Kicks Other Activities deep water hang Equipment blue float Duration 15 PT-OP-T Assessment and Plan Start: 07/24/21 09:54 Freq: Status: Active Protocol: Document 08/14/21 13:46 [facility] (Rec: 08/14/21 14:03 [facility] [id number]) Physical Therapy Assessment Rehab Potential Rehabilitation Potential Good Evaluation Complexity Number of Personal Factors/Comorbidities 3 or More Number of Body Systems Impaired 4 or More Clinical Presentation at Evaluation Evolving Impairments Impairments Activity Tolerance,Pain,ROM, Strength Goals Four Impairment functional strength Impairment 5x sit to stand test 47 seconds Search Engine Optimization Specialist Goal (LTG) Patient will be able to sit to stand x5 in no greater than 30 sec as measure of improved LE functional strength LTG Duration 09/23/21 Three Impairment ROM and strength Impairment Patient has deficits in ROM and strength throughout his shoulders, spine, and LE's with poor tolerance for activity or exercise Short Term Goal (STG) Patient will be able to tolerate 45 min aquatic exercise program with minimal to no increase in pain for purposes of ROM, strengthening , pain management STG Duration Search Engine Optimization Specialist Goal (LTG) Patient will be safe and independent with aquatic exercise program for long-term fitness and pain management and demonstrate improved ROM and strength with demonstrated improved ability to perform his ADL's in the home. LTG Duration 09/23/21 Two Impairment Activity tolerance Impairment Oswestry disability index score 66% Short Term Goal (STG) Decrease ALEKS score to no greater than 50% STG Duration 08/25/21 Search Engine Optimization Specialist Goal (LTG) Decrease ALEKS score to no greater than 40% as measure of improved activity tolerence and quality of life LTG Duration 09/23/21 One Impairment Activity tolerance Impairment Lower extremity functional scale 23% Short Term Goal (STG) Improve LEFS score to at least 40% STG Duration 08/25/21 Group Home Goal (LTG) Improve LEFS to at least 60% as measure of improved activity tolerance and quality of life LTG Duration 09/23/21 Assessment Summary Assessment Patient more receptive to cues and guidance for pacing, controlled breathing, willing to take breaks. Physical Therapy Plan Frequency and Duration Frequency of Treatment 2x/Week Duration of Treatment 8 weeks Plan of Care Start Date 07/25/21 Plan of Care End Date 09/23/21 Therapeutic Interventions Therapeutic Interventions Aquatic Therapy,Patient/ Caregiver Education,Self-Care/ Home Management Next Visit Focus/Plan Next Note Type Treatment Note Next Visit Plan Progress aquatic PT strengthening and flexibility as tolerated
--- NOTE | 2021-08-19 14:48 | PT-OP ANOTE ---
Cancelled due to sick, going to ED
--- NOTE | 2021-08-26 14:07 | PT.OTN ---
Current Diagnoses Low back pain, unspecified (08/26/21) Physical Therapy Treatment Note PT-OP-A Visit Information Start: 07/24/21 09:54 Freq: Status: Active Protocol: Document 08/26/21 13:45 SAK (Rec: 08/26/21 14:07 SAK [id number]) Out-Patient Physical Therapy Visit Information Visit Information Visit Type Treatment Note Visit Start Time 11:00 Visit Stop Time 11:15 Total Visit Minutes 15 Visit Number 5 Precautions Precautions PMH: arthritis, back pain, HTN, CHF, demnetia, depression , DM, dizziness, headaches, TAZLINA, jaw pain, kidney disease, neck pain, neuropathy, PTSD, wears glasses. Patient did not bring medication list today PT-OP-B Current Condition Start: 07/24/21 09:54 Freq: Status: Active Protocol: Document 07/25/21 10:31 SAK (Rec: 07/25/21 11:14 SAK [id number]) Current Condition History of Current Condition Onset Date 1969' Current Complaints LBP,sciatica fuad knee pain, bilateral shoulder pain History of Current Condition Long history of pain since was in [place]. Has had bilateral shoulder surgeries and has limited function, persistent LBP, bilateral knee pain left greater than right. Was supposed to get TKA's bilaterally in February was cancelled due to of his mother , then scheduled in May was cancelled due to Covid numbers in hospital , then July cancelled again due to Covid numbers. Now patient waiting for shots to knees to try instead of surgery first (Hyalgan injections); will get at . Has had other shots in his knees including Synvisc which was helpful for awhile but then stopped workinig for him. Has decreased his weight from 270 to 240. Uses cane or walker for mobility. For HEP doing leg lifts at home, small weights for shoulder. Has benefited from aquatic PT in the past. Prior Treatments and Tests chiropractic, aquatic PT, bilaterl shoulder surgery Future Testing and Treatments Planned Sees podiatry tomorrow for ingrown toenails. Getting Covid-19 booster. Treatment Goals Patient/Caregiver Goals Relieve some of the pain, be able to walk better. Prior Functional Status Baseline Function- ADL's Modified Independent Baseline Function- Mobility Modified Independent Current Functional Impairments (Reported) Functional Limitations- ADL's painful Functional Limitations- Mobility/Gait uses cane or walker Functional Limitations- Work/School retired Personal Factors Other Personal Factors That May Effect mom , depression Therapy/Recovery PT-OP-C Subjective Start: 07/24/21 09:54 Freq: Status: Active Protocol: Document 08/26/21 13:45 SAK (Rec: 08/26/21 14:07 SAK [id number]) OP-PT Subjective Patient Comments Patient Comments schedule confusion, PT only able to see patient for shortened session, given instructions for what to do on own today as PT double-booked . PT-OP-D Balance Start: 07/24/21 09:54 Freq: Status: Active Protocol: Document 07/25/21 10:31 SAK (Rec: 07/28/21 08:29 SAK [id number]) OP-PT Balance Assessment Sitting Balance Static Sitting Balance Ability Normal Standing Balance Static Standing Balance Ability Fair Dynamic Standing Balance Ability Fair Balance Tests Other Other Balance Tests Performed unable to tolerate due to pain Rider Fall Scale Copyright Permission PT-OP-E Functional Tests Start: 07/24/21 09:54 Freq: Status: Active Protocol: Document 07/25/21 10:31 SAK (Rec: 07/25/21 11:14 SAK [id number]) Functional Tests Five Times Sit to Stand Test Score 33 Comments using cane PT-OP-F Manual Assessment Start: 07/24/21 09:54 Freq: Status: Active Protocol: Document 07/25/21 10:31 SAK (Rec: 07/28/21 08:29 SAK [id number]) Manual Assessments Other Manual Assessments Other Manual Assessments Patient has multiple areas of tenderness throughout shoulders, spine, and LE's especially knees. PT-OP-G Mobility & Gait Start: 07/24/21 09:54 Freq: Status: Active Protocol: Document 07/25/21 10:31 SAK (Rec: 07/28/21 08:29 SAK [id number]) OP Mobility Evaluation Bed Mobility Rolling indep but labored Supine to and from Sit indep but labored Transfers Sit to Stand 5x sit to stand test 47 sec Bed to Chair Transfers indep Car Transfers indep Floor Transfers NA OP Gait Assessment Gait Gait Assistance Required: Independent Distance (Feet) 50 Assistive Devices Assistive Device Straight Cane Gait Deviations General Gait Pattern Antalgic,Decreased Stride Length,Decreased Feet Clearance Factors Limiting Gait Function Factors Limiting Gait Function Decreased Strength,Limited Range of Motion,Pain Stair Climbing Evaluation Devices Stair Climbing Assistive Devices Left Railing,Right Railing Technique/Endurance Stair Climbing Technique Step to Step PT-OP-H Neuro Start: 07/24/21 09:54 Freq: Status: Active Protocol: Document 07/25/21 10:31 SAK (Rec: 07/28/21 08:29 [facility] [id number]) Sensation Evaluation Gross Sensation Gross Sensation Left LE Impaired,Right LE Impaired Sensation Description Numbness PT-OP-J Posture/Palpation/Skin Start: 07/24/21 09:54 Freq: Status: Active Protocol: Document 07/25/21 10:31 SAK (Rec: 07/25/21 11:14 [facility] [id number]) Posture Evaluation Position Standing Head/C-Spine Posture Side Bent Right,C-Spine Flattened T-Spine Posture Increased Kyphosis L-Spine Posture Rotation Right,Increased Lordosis Shoulder Subluxation Degree (R) < 1 Finger wide Scapula Posture (L) Protracted Arm Posture (R) Internally Rotated Knee Posture (L) Genu Varus,(R) Genu Varus Palpation Assessment Location left knee Palpation Findings Tenderness Palpation Details medial joint line PT-OP-K Range of Motion Start: 07/24/21 09:54 Freq: Status: Active Protocol: Document 07/25/21 10:31 SAK (Rec: 07/25/21 11:14 [facility] [id number]) Cervical Spine Range of Motion Cervical Spine Active ROM Limitations Soft Tissue Tightness,Bony Restriction,Pain Comments mod decrease all motions Lumbar Spine Range of Motion Lumbar Spine Active ROM Limitations Soft Tissue Tightness,Pain Comments mod decrease all motions PT-OP-L Special Tests Start: 07/24/21 09:54 Freq: Status: Active Protocol: Document 07/25/21 10:31 SAK (Rec: 07/28/21 08:29 [facility] [id number]) Special Tests Lumbar Spine Special Tests 1 Comments too painful Shoulder Special Tests 1 Comments too painful Knee Special Tests 1 Comments unable to tolerate due to pain all movement or tests PT-OP-M Strength Start: 07/24/21 09:54 Freq: Status: Active Protocol: Document 07/25/21 10:31 SAK (Rec: 07/28/21 08:29 SAK [id number]) Shoulder Strength Shoulder Manual Muscle Testing fuad Flexion 3- Fair- Extension 3- Fair- Abduction (C5) 3- Fair- External Rotation 3- Fair- Internal Rotation 3- Fair- Horizontal Abduction 3- Fair- Horizontal Adduction 3- Fair- Elbow/Forearm Strength Elbow and Forearm Manual Muscle Testing fuad Flexion (C6) 4 Good Extension (C7) 4 Good Hip Strength Hip Manual Muscle Testing fuad Flexion (L2) 3+ Fair+ Extension (S1) 3- Fair- Abduction 3+ Fair+ Adduction 3+ Fair+ External Rotation 3+ Fair+ Knee Strength Knee Manual Muscle Testing fuad Flexion (S2) 4- Good- Extension (L3) 4- Good- Comments painful Ankle/Foot Strength Ankle and Foot Manual Muscle Testing fuad Dorsiflexion (L4) 4 Good Plantarflexion (S1) 4 Good PT-OP-Q Treatments Start: 07/24/21 09:54 Freq: Status: Active Protocol: Document 07/25/21 10:31 [facility] (Rec: 07/28/21 08:29 SAK [id number]) Self-Care/Home Management Treatment Education Patient Education Fall Risk,Pain Management, Safety PT-OP-S Aquatic Treatment Start: 07/24/21 09:54 Freq: Status: Active Protocol: Document 08/26/21 13:45 [facility] (Rec: 08/26/21 14:07 [facility] [id number]) Aquatics Treatment Pool Entry/Exit Pool Entry/Exit Method Stairs Assistance Standby Assistance Comments pt sat in a chair next to stairsx2 minutes post tx, exited w/4WW Lower Extremity Exercises knee flex/ext Details at wall Body Position Standing Water Level Chest Level Reps/Duration 10 x 2; B squats Details mini Body Position Standing Water Level Chest Level Reps/Duration 10 Lower Extremity Stretches 1 Details Calf Stretch Body Position Standing Water Level Waist Level Equipment off edge of step Reps/Duration 2 reps Comments at stairs [place] Activities [place] Activities Bicycle,Cross Country,Hip Abduction/Adduction,Sit Kicks Other Activities deep water hang Equipment blue float Duration 10 PT-OP-T Assessment and Plan Start: 07/24/21 09:54 Freq: Status: Active Protocol: Document 08/26/21 13:45 [facility] (Rec: 08/26/21 14:07 [facility] [id number]) Physical Therapy Assessment Goals Four Impairment functional strength Impairment 5x sit to stand test 47 seconds Facility Manager Goal (LTG) Patient will be able to sit to stand x5 in no greater than 30 sec as measure of improved LE functional strength LTG Duration 09/23/21 Three Impairment ROM and strength Impairment Patient has deficits in ROM and strength throughout his shoulders, spine, and LE's with poor tolerance for activity or exercise Short Term Goal (STG) Patient will be able to tolerate 45 min aquatic exercise program with minimal to no increase in pain for purposes of ROM, strengthening , pain management STG Duration Facility Manager Goal (LTG) Patient will be safe and independent with aquatic exercise program for long-term fitness and pain management and demonstrate improved ROM and strength with demonstrated improved ability to perform his ADL's in the home. LTG Duration 09/23/21 Two Impairment Activity tolerance Impairment Oswestry disability index score 66% Short Term Goal (STG) Decrease ALEKS score to no greater than 50% STG Duration 08/25/21 Facility Manager Goal (LTG) Decrease ALEKS score to no greater than 40% as measure of improved activity tolerence and quality of life LTG Duration 09/23/21 One Impairment Activity tolerance Impairment Lower extremity functional scale 23% Short Term Goal (STG) Improve LEFS score to at least 40% STG Duration 08/25/21 Residential Goal (LTG) Improve LEFS to at least 60% as measure of improved activity tolerance and quality of life LTG Duration 09/23/21 Assessment Summary Assessment shortened treatment today due to schedule conflict, patient able to follow some of prior treatments with guidance. Will continue to progress as tolerated.
--- NOTE | 2021-09-02 14:55 | PT.OTN ---
Current Diagnoses Low back pain, unspecified (09/02/21) Physical Therapy Treatment Note PT-OP-A Visit Information Start: 07/24/21 09:54 Freq: Status: Active Protocol: Document 09/02/21 14:32 CHRISTINA (Rec: 09/02/21 14:55 LJ [id number]) Out-Patient Physical Therapy Visit Information Visit Information Visit Type Aquatic Treatment Note Visit Start Time 10:15 Visit Stop Time 11:00 Total Visit Minutes 45 Visit Number 6 Number of [employer]ER Visits 1 Precautions Precautions PMH: arthritis, back pain, HTN, CHF, demnetia, depression , DM, dizziness, headaches, [place], jaw pain, kidney disease, neck pain, neuropathy, PTSD, wears glasses. Patient did not bring medication list today PT-OP-B Current Condition Start: 07/24/21 09:54 Freq: Status: Active Protocol: Document 07/25/21 10:31 SAK (Rec: 07/25/21 11:14 SAK [id number]) Current Condition History of Current Condition Onset Date 1969' Current Complaints LBP,sciatica fuad knee pain, bilateral shoulder pain History of Current Condition Long history of pain since was in [place]. Has had bilateral shoulder surgeries and has limited function, persistent LBP, bilateral knee pain left greater than right. Was supposed to get TKA's bilaterally in February was cancelled due to of his mother , then scheduled in May was cancelled due to Covid numbers in hospital , then July cancelled again due to Covid numbers. Now patient waiting for shots to knees to try instead of surgery first (Hyalgan injections); will get at . Has had other shots in his knees including Synvisc which was helpful for awhile but then stopped workinig for him. Has decreased his weight from 270 to 240. Uses cane or walker for mobility. For HEP doing leg lifts at home, small weights for shoulder. Has benefited from aquatic PT in the past. Prior Treatments and Tests chiropractic, aquatic PT, bilaterl shoulder surgery Future Testing and Treatments Planned Sees podiatry tomorrow for ingrown toenails. Getting Covid-19 booster. Treatment Goals Patient/Caregiver Goals Relieve some of the pain, be able to walk better. Prior Functional Status Baseline Function- ADL's Modified Independent Baseline Function- Mobility Modified Independent Current Functional Impairments (Reported) Functional Limitations- ADL's painful Functional Limitations- Mobility/Gait uses cane or walker Functional Limitations- Work/School retired Personal Factors Other Personal Factors That May Effect mom , depression Therapy/Recovery PT-OP-C Subjective Start: 07/24/21 09:54 Freq: Status: Active Protocol: Document 09/02/21 14:32 LJ (Rec: 09/02/21 14:55 LJ [id number]) OP-PT Subjective Patient Comments Patient Comments Pt states anne [place] knee was painful after he worked out last aquatic session. Feels he did too much flexion but he states his doctor told him to keep fl/ext for ROM. PT-OP-D Balance Start: 07/24/21 09:54 Freq: Status: Active Protocol: Document 07/25/21 10:31 SAK (Rec: 07/28/21 08:29 SAK [id number]) OP-PT Balance Assessment Sitting Balance Static Sitting Balance Ability Normal Standing Balance Static Standing Balance Ability Fair Dynamic Standing Balance Ability Fair Balance Tests Other Other Balance Tests Performed unable to tolerate due to pain Rider Fall Scale Copyright Permission PT-OP-E Functional Tests Start: 07/24/21 09:54 Freq: Status: Active Protocol: Document 07/25/21 10:31 SAK (Rec: 07/25/21 11:14 SAK [id number]) Functional Tests Five Times Sit to Stand Test Score 33 Comments using cane PT-OP-F Manual Assessment Start: 07/24/21 09:54 Freq: Status: Active Protocol: Document 07/25/21 10:31 SAK (Rec: 07/28/21 08:29 SAK [id number]) Manual Assessments Other Manual Assessments Other Manual Assessments Patient has multiple areas of tenderness throughout shoulders, spine, and LE's especially knees. PT-OP-G Mobility & Gait Start: 07/24/21 09:54 Freq: Status: Active Protocol: Document 07/25/21 10:31 SAK (Rec: 07/28/21 08:29 SAK [id number]) OP Mobility Evaluation Bed Mobility Rolling indep but labored Supine to and from Sit indep but labored Transfers Sit to Stand 5x sit to stand test 47 sec Bed to Chair Transfers indep Car Transfers indep Floor Transfers NA OP Gait Assessment Gait Gait Assistance Required: Independent Distance (Feet) 50 Assistive Devices Assistive Device Straight Cane Gait Deviations General Gait Pattern Antalgic,Decreased Stride Length,Decreased Feet Clearance Factors Limiting Gait Function Factors Limiting Gait Function Decreased Strength,Limited Range of Motion,Pain Stair Climbing Evaluation Devices Stair Climbing Assistive Devices Left Railing,Right Railing Technique/Endurance Stair Climbing Technique Step to Step PT-OP-H Neuro Start: 07/24/21 09:54 Freq: Status: Active Protocol: Document 07/25/21 10:31 SAK (Rec: 07/28/21 08:29 SAK [id number]) Sensation Evaluation Gross Sensation Gross Sensation Left LE Impaired,Right LE Impaired Sensation Description Numbness PT-OP-J Posture/Palpation/Skin Start: 07/24/21 09:54 Freq: Status: Active Protocol: Document 07/25/21 10:31 SAK (Rec: 07/25/21 11:14 SAK [id number]) Posture Evaluation Position Standing Head/C-Spine Posture Side Bent Right,C-Spine Flattened T-Spine Posture Increased Kyphosis L-Spine Posture Rotation Right,Increased Lordosis Shoulder Subluxation Degree (R) < 1 Finger wide Scapula Posture (L) Protracted Arm Posture (R) Internally Rotated Knee Posture (L) Genu Varus,(R) Genu Varus Palpation Assessment Location left knee Palpation Findings Tenderness Palpation Details medial joint line PT-OP-K Range of Motion Start: 07/24/21 09:54 Freq: Status: Active Protocol: Document 07/25/21 10:31 SAK (Rec: 07/25/21 11:14 [facility] [id number]) Cervical Spine Range of Motion Cervical Spine Active ROM Limitations Soft Tissue Tightness,Bony Restriction,Pain Comments mod decrease all motions Lumbar Spine Range of Motion Lumbar Spine Active ROM Limitations Soft Tissue Tightness,Pain Comments mod decrease all motions PT-OP-L Special Tests Start: 07/24/21 09:54 Freq: Status: Active Protocol: Document 07/25/21 10:31 SAK (Rec: 07/28/21 08:29 SAK [id number]) Special Tests Lumbar Spine Special Tests 1 Comments too painful Shoulder Special Tests 1 Comments too painful Knee Special Tests 1 Comments unable to tolerate due to pain all movement or tests PT-OP-M Strength Start: 07/24/21 09:54 Freq: Status: Active Protocol: Document 07/25/21 10:31 SAK (Rec: 07/28/21 08:29 SAK [id number]) Shoulder Strength Shoulder Manual Muscle Testing fuad Flexion 3- Fair- Extension 3- Fair- Abduction (C5) 3- Fair- External Rotation 3- Fair- Internal Rotation 3- Fair- Horizontal Abduction 3- Fair- Horizontal Adduction 3- Fair- Elbow/Forearm Strength Elbow and Forearm Manual Muscle Testing fuad Flexion (C6) 4 Good Extension (C7) 4 Good Hip Strength Hip Manual Muscle Testing fuad Flexion (L2) 3+ Fair+ Extension (S1) 3- Fair- Abduction 3+ Fair+ Adduction 3+ Fair+ External Rotation 3+ Fair+ Knee Strength Knee Manual Muscle Testing fuad Flexion (S2) 4- Good- Extension (L3) 4- Good- Comments painful Ankle/Foot Strength Ankle and Foot Manual Muscle Testing fuad Dorsiflexion (L4) 4 Good Plantarflexion (S1) 4 Good PT-OP-Q Treatments Start: 07/24/21 09:54 Freq: Status: Active Protocol: Document 07/25/21 10:31 SAK (Rec: 07/28/21 08:29 SAK [id number]) Self-Care/Home Management Treatment Education Patient Education Fall Risk,Pain Management, Safety PT-OP-S Aquatic Treatment Start: 07/24/21 09:54 Freq: Status: Active Protocol: Document 09/02/21 14:32 LJ (Rec: 09/02/21 14:55 LJ [id number]) Aquatics Treatment Pool Entry/Exit Pool Entry/Exit Method Stairs Assistance Standby Assistance Water Walking [place] December Water Level Chest Level March Water Level Chest Level Comments no c/o pain this session Sideways Water Level Chest Level Level of Assistance Independent Comments HABD/HADD; lateral ab,ad arms [place] Water Level Chest Level Level of Assistance Verbal Cues Comments 3 laps throughout session Lower Extremity Exercises knee flex/ext Details at wall Body Position Standing Water Level Chest Level Reps/Duration 10 B Comments L knee painful squats Details mini Body Position Standing Water Level Chest Level Reps/Duration 10 Lower Extremity Stretches ITB Details at wall Body Position Standing Water Level Waist Level Reps/Duration 30 sec L side hip flexor Details at wall Body Position Standing Water Level Waist Level Reps/Duration 30 sec HS Details hs Body Position Standing Water Level Chest Level Reps/Duration 30 sec Comments on stairs 2 Details quad stretch Body Position Standing Water Level Chest Level Reps/Duration 30 sec right only Comments L knee limited d/t pain 1 Details Calf Stretch Body Position Standing Water Level Waist Level Equipment toes on wall Reps/Duration 2 reps Comments at stairs [place] Activities [place] Activities Bicycle,Cross Country,Hip Abduction/Adduction,Sit Kicks Equipment blue float, #2 ankle wt on LLE Duration 20 Swim Strokes modified [place]. baackstroke Laps/Duration 5 min Comments lg blue float Manual Techniques Aquatic Massage Left distal TFL soft ball rolling on wall 2 minutes gentle PT-OP-T Assessment and Plan Start: 07/24/21 09:54 Freq: Status: Active Protocol: Document 09/02/21 14:32 CHRISTINA (Rec: 09/02/21 14:55 CHRISTINA [id number]) Physical Therapy Assessment Rehab Potential Rehabilitation Potential Good Evaluation Complexity Number of Personal Factors/Comorbidities 3 or More Number of Body Systems Impaired 4 or More Clinical Presentation at Evaluation Evolving Impairments Impairments Activity Tolerance,Pain,ROM, Strength Goals Four Impairment functional strength Impairment 5x sit to stand test 47 seconds Fdc Goal (LTG) Patient will be able to sit to stand x5 in no greater than 30 sec as measure of improved LE functional strength LTG Duration 09/23/21 Three Impairment ROM and strength Impairment Patient has deficits in ROM and strength throughout his shoulders, spine, and LE's with poor tolerance for activity or exercise Short Term Goal (STG) Patient will be able to tolerate 45 min aquatic exercise program with minimal to no increase in pain for purposes of ROM, strengthening , pain management STG Duration Fdc Goal (LTG) Patient will be safe and independent with aquatic exercise program for long-term fitness and pain management and demonstrate improved ROM and strength with demonstrated improved ability to perform his ADL's in the home. LTG Duration 09/23/21 Two Impairment Activity tolerance Impairment Oswestry disability index score 66% Short Term Goal (STG) Decrease ALEKS score to no greater than 50% STG Duration 08/25/21 Fdc Goal (LTG) Decrease ALEKS score to no greater than 40% as measure of improved activity tolerence and quality of life LTG Duration 09/23/21 One Impairment Activity tolerance Impairment Lower extremity functional scale 23% Short Term Goal (STG) Improve LEFS score to at least 40% STG Duration 08/25/21 Fdc Goal (LTG) Improve LEFS to at least 60% as measure of improved activity tolerance and quality of life LTG Duration 09/23/21 Physical Therapy Plan Frequency and Duration Frequency of Treatment 2x/Week Duration of Treatment 8 weeks Plan of Care Start Date 07/25/21 Plan of Care End Date 09/23/21 Therapeutic Interventions Therapeutic Interventions Aquatic Therapy,Patient/ Caregiver Education,Self-Care/ Home Management Next Visit Focus/Plan Next Note Type Treatment Note Next Visit Plan Pt spent the majority of this AT session in deep water d/t pain in L knee with WB in shallow water. His endorsement of pain was erratic; sometimes painful with WB and sometimes not. Responded well to ball rolling on wall. Stated he felt it loosened up his knee . In deep water with ankle weight on LLE pt stated he felt much better. Therapist cautioned against overworking the knee but pt not compliant. Progress strengthening and ROM as tolerated. Continue with #2 weights on L knee for distraction to reduce pain.
--- NOTE | 2021-09-02 14:57 | PT.OTN ---
Current Diagnoses Low back pain, unspecified (09/02/21) Physical Therapy Treatment Note PT-OP-A Visit Information Start: 07/24/21 09:54 Freq: Status: Active Protocol: Document 09/02/21 14:32 CHRISTINA (Rec: 09/02/21 14:55 LJ [email or web address]) Out-Patient Physical Therapy Visit Information Visit Information Visit Type Aquatic Treatment Note Visit Start Time 10:15 Visit Stop Time 11:00 Total Visit Minutes 45 Visit Number 6 Number of MOTORBOAT MECHANIC INBOARD Visits 1 Precautions Precautions PMH: arthritis, back pain, HTN, CHF, demnetia, depression , DM, dizziness, headaches, [place], jaw pain, kidney disease, neck pain, neuropathy, PTSD, wears glasses. Patient did not bring medication list today PT-OP-B Current Condition Start: 07/24/21 09:54 Freq: Status: Active Protocol: Document 07/25/21 10:31 SAK (Rec: 07/25/21 11:14 SAK [id number]) Current Condition History of Current Condition Onset Date 1969' Current Complaints LBP,sciatica fuad knee pain, bilateral shoulder pain History of Current Condition Long history of pain since was in [place]. Has had bilateral shoulder surgeries and has limited function, persistent LBP, bilateral knee pain left greater than right. Was supposed to get TKA's bilaterally in February was cancelled due to of his mother , then scheduled in May was cancelled due to Covid numbers in hospital , then July cancelled again due to Covid numbers. Now patient waiting for shots to knees to try instead of surgery first (Hyalgan injections); will get at . Has had other shots in his knees including Synvisc which was helpful for awhile but then stopped workinig for him. Has decreased his weight from 270 to 240. Uses cane or walker for mobility. For HEP doing leg lifts at home, small weights for shoulder. Has benefited from aquatic PT in the past. Prior Treatments and Tests chiropractic, aquatic PT, bilaterl shoulder surgery Future Testing and Treatments Planned Sees podiatry tomorrow for ingrown toenails. Getting Covid-19 booster. Treatment Goals Patient/Caregiver Goals Relieve some of the pain, be able to walk better. Prior Functional Status Baseline Function- ADL's Modified Independent Baseline Function- Mobility Modified Independent Current Functional Impairments (Reported) Functional Limitations- ADL's painful Functional Limitations- Mobility/Gait uses cane or walker Functional Limitations- Work/School retired Personal Factors Other Personal Factors That May Effect mom , depression Therapy/Recovery PT-OP-C Subjective Start: 07/24/21 09:54 Freq: Status: Active Protocol: Document 09/02/21 14:32 LJ (Rec: 09/02/21 14:55 LJ [id number]) OP-PT Subjective Patient Comments Patient Comments Pt states anne Drummond knee was painful after he worked out last aquatic session. Feels he did too much flexion but he states his doctor told him to keep fl/ext for ROM. PT-OP-D Balance Start: 07/24/21 09:54 Freq: Status: Active Protocol: Document 07/25/21 10:31 SAK (Rec: 07/28/21 08:29 SAK [id number]) OP-PT Balance Assessment Sitting Balance Static Sitting Balance Ability Normal Standing Balance Static Standing Balance Ability Fair Dynamic Standing Balance Ability Fair Balance Tests Other Other Balance Tests Performed unable to tolerate due to pain Rider Fall Scale Copyright Permission PT-OP-E Functional Tests Start: 07/24/21 09:54 Freq: Status: Active Protocol: Document 07/25/21 10:31 SAK (Rec: 07/25/21 11:14 SAK [id number]) Functional Tests Five Times Sit to Stand Test Score 33 Comments using cane PT-OP-F Manual Assessment Start: 07/24/21 09:54 Freq: Status: Active Protocol: Document 07/25/21 10:31 SAK (Rec: 07/28/21 08:29 SAK [id number]) Manual Assessments Other Manual Assessments Other Manual Assessments Patient has multiple areas of tenderness throughout shoulders, spine, and LE's especially knees. PT-OP-G Mobility & Gait Start: 07/24/21 09:54 Freq: Status: Active Protocol: Document 07/25/21 10:31 SAK (Rec: 07/28/21 08:29 SAK [id number]) OP Mobility Evaluation Bed Mobility Rolling indep but labored Supine to and from Sit indep but labored Transfers Sit to Stand 5x sit to stand test 47 sec Bed to Chair Transfers indep Car Transfers indep Floor Transfers NA OP Gait Assessment Gait Gait Assistance Required: Independent Distance (Feet) 50 Assistive Devices Assistive Device Straight Cane Gait Deviations General Gait Pattern Antalgic,Decreased Stride Length,Decreased Feet Clearance Factors Limiting Gait Function Factors Limiting Gait Function Decreased Strength,Limited Range of Motion,Pain Stair Climbing Evaluation Devices Stair Climbing Assistive Devices Left Railing,Right Railing Technique/Endurance Stair Climbing Technique Step to Step PT-OP-H Neuro Start: 07/24/21 09:54 Freq: Status: Active Protocol: Document 07/25/21 10:31 SAK (Rec: 07/28/21 08:29 SAK [id number]) Sensation Evaluation Gross Sensation Gross Sensation Left LE Impaired,Right LE Impaired Sensation Description Numbness PT-OP-J Posture/Palpation/Skin Start: 07/24/21 09:54 Freq: Status: Active Protocol: Document 07/25/21 10:31 SAK (Rec: 07/25/21 11:14 SAK [id number]) Posture Evaluation Position Standing Head/C-Spine Posture Side Bent Right,C-Spine Flattened T-Spine Posture Increased Kyphosis L-Spine Posture Rotation Right,Increased Lordosis Shoulder Subluxation Degree (R) < 1 Finger wide Scapula Posture (L) Protracted Arm Posture (R) Internally Rotated Knee Posture (L) Genu Varus,(R) Genu Varus Palpation Assessment Location left knee Palpation Findings Tenderness Palpation Details medial joint line PT-OP-K Range of Motion Start: 07/24/21 09:54 Freq: Status: Active Protocol: Document 07/25/21 10:31 SAK (Rec: 07/25/21 11:14 [facility] [id number]) Cervical Spine Range of Motion Cervical Spine Active ROM Limitations Soft Tissue Tightness,Bony Restriction,Pain Comments mod decrease all motions Lumbar Spine Range of Motion Lumbar Spine Active ROM Limitations Soft Tissue Tightness,Pain Comments mod decrease all motions PT-OP-L Special Tests Start: 07/24/21 09:54 Freq: Status: Active Protocol: Document 07/25/21 10:31 SAK (Rec: 07/28/21 08:29 SAK [id number]) Special Tests Lumbar Spine Special Tests 1 Comments too painful Shoulder Special Tests 1 Comments too painful Knee Special Tests 1 Comments unable to tolerate due to pain all movement or tests PT-OP-M Strength Start: 07/24/21 09:54 Freq: Status: Active Protocol: Document 07/25/21 10:31 SAK (Rec: 07/28/21 08:29 SAK [id number]) Shoulder Strength Shoulder Manual Muscle Testing fuad Flexion 3- Fair- Extension 3- Fair- Abduction (C5) 3- Fair- External Rotation 3- Fair- Internal Rotation 3- Fair- Horizontal Abduction 3- Fair- Horizontal Adduction 3- Fair- Elbow/Forearm Strength Elbow and Forearm Manual Muscle Testing fuad Flexion (C6) 4 Good Extension (C7) 4 Good Hip Strength Hip Manual Muscle Testing fuad Flexion (L2) 3+ Fair+ Extension (S1) 3- Fair- Abduction 3+ Fair+ Adduction 3+ Fair+ External Rotation 3+ Fair+ Knee Strength Knee Manual Muscle Testing fuad Flexion (S2) 4- Good- Extension (L3) 4- Good- Comments painful Ankle/Foot Strength Ankle and Foot Manual Muscle Testing fuad Dorsiflexion (L4) 4 Good Plantarflexion (S1) 4 Good PT-OP-Q Treatments Start: 07/24/21 09:54 Freq: Status: Active Protocol: Document 07/25/21 10:31 SAK (Rec: 07/28/21 08:29 SAK [id number]) Self-Care/Home Management Treatment Education Patient Education Fall Risk,Pain Management, Safety PT-OP-S Aquatic Treatment Start: 07/24/21 09:54 Freq: Status: Active Protocol: Document 09/02/21 14:32 LJ (Rec: 09/02/21 14:55 LJ [id number]) Aquatics Treatment Pool Entry/Exit Pool Entry/Exit Method Stairs Assistance Standby Assistance Water Walking [place] December Water Level Chest Level March Water Level Chest Level Comments no c/o pain this session Sideways Water Level Chest Level Level of Assistance Independent Comments HABD/HADD; lateral ab,ad arms Forwards Water Level Chest Level Level of Assistance Verbal Cues Comments 3 laps throughout session Lower Extremity Exercises knee flex/ext Details at wall Body Position Standing Water Level Chest Level Reps/Duration 10 B Comments L knee painful squats Details mini Body Position Standing Water Level Chest Level Reps/Duration 10 Lower Extremity Stretches ITB Details at wall Body Position Standing Water Level Waist Level Reps/Duration 30 sec L side hip flexor Details at wall Body Position Standing Water Level Waist Level Reps/Duration 30 sec HS Details hs Body Position Standing Water Level Chest Level Reps/Duration 30 sec Comments on stairs 2 Details quad stretch Body Position Standing Water Level Chest Level Reps/Duration 30 sec right only Comments L knee limited d/t pain 1 Details Calf Stretch Body Position Standing Water Level Waist Level Equipment toes on wall Reps/Duration 2 reps Comments at stairs [place] Activities [place] Activities Bicycle,Cross Country,Hip Abduction/Adduction,Sit Kicks Equipment blue float, #2 ankle wt on LLE Duration 20 Swim Strokes modified [place]. baackstroke Laps/Duration 5 min Comments lg blue float Manual Techniques Aquatic Massage Left distal TFL soft ball rolling on wall 2 minutes gentle PT-OP-T Assessment and Plan Start: 07/24/21 09:54 Freq: Status: Active Protocol: Document 09/02/21 14:32 CHRISTINA (Rec: 09/02/21 14:55 CHRISTINA [id number]) Physical Therapy Assessment Rehab Potential Rehabilitation Potential Good Evaluation Complexity Number of Personal Factors/Comorbidities 3 or More Number of Body Systems Impaired 4 or More Clinical Presentation at Evaluation Evolving Impairments Impairments Activity Tolerance,Pain,ROM, Strength Goals Four Impairment functional strength Impairment 5x sit to stand test 47 seconds Custodial Goal (LTG) Patient will be able to sit to stand x5 in no greater than 30 sec as measure of improved LE functional strength LTG Duration 09/23/21 Three Impairment ROM and strength Impairment Patient has deficits in ROM and strength throughout his shoulders, spine, and LE's with poor tolerance for activity or exercise Short Term Goal (STG) Patient will be able to tolerate 45 min aquatic exercise program with minimal to no increase in pain for purposes of ROM, strengthening , pain management STG Duration Custodial Goal (LTG) Patient will be safe and independent with aquatic exercise program for long-term fitness and pain management and demonstrate improved ROM and strength with demonstrated improved ability to perform his ADL's in the home. LTG Duration 09/23/21 Two Impairment Activity tolerance Impairment Oswestry disability index score 66% Short Term Goal (STG) Decrease ALEKS score to no greater than 50% STG Duration 08/25/21 Custodial Goal (LTG) Decrease ALEKS score to no greater than 40% as measure of improved activity tolerence and quality of life LTG Duration 09/23/21 One Impairment Activity tolerance Impairment Lower extremity functional scale 23% Short Term Goal (STG) Improve LEFS score to at least 40% STG Duration 08/25/21 Custodial Goal (LTG) Improve LEFS to at least 60% as measure of improved activity tolerance and quality of life LTG Duration 09/23/21 Physical Therapy Plan Frequency and Duration Frequency of Treatment 2x/Week Duration of Treatment 8 weeks Plan of Care Start Date 07/25/21 Plan of Care End Date 09/23/21 Therapeutic Interventions Therapeutic Interventions Aquatic Therapy,Patient/ Caregiver Education,Self-Care/ Home Management Next Visit Focus/Plan Next Note Type Treatment Note Next Visit Plan Pt spent the majority of this AT session in deep water d/t pain in L knee with WB in shallow. His endorsement of pain was erratic; sometimes painful with WB and sometimes not. Responded well to ball rolling on wall. Stated he felt it loosened up his knee . In deep water with ankle weight on LLE pt stated he felt much better. Therapist cautioned against overworking the knee but pt not compliant. Progress strengthening and ROM as tolerated. Continue with #2 weights on L knee.
--- NOTE | 2021-09-09 14:06 | PT-OP ANOTE ---
cancelled due to of [id number]
--- NOTE | 2021-09-11 16:55 | PT.OTN ---
Current Diagnoses Low back pain, unspecified (09/02/21) Physical Therapy Treatment Note PT-OP-A Visit Information Start: 07/24/21 09:54 Freq: Status: Active Protocol: Document 09/11/21 16:48 [facility] (Rec: 09/11/21 16:55 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 Patient did not bring medication list today PT-OP-B Current Condition Start: 07/24/21 09:54 Freq: Status: Active Protocol: Document 07/25/21 10:31 SAK (Rec: 07/25/21 11:14 [facility] [id number]) Current Condition History of Current Condition Onset Date 1969' Current Complaints LBP,sciatica fuad knee pain, bilateral shoulder pain History of Current Condition Long history of pain since was in [place]. Has had bilateral shoulder surgeries and has limited function, persistent LBP, bilateral knee pain left greater than right. Was supposed to get TKA's bilaterally in February was cancelled due to of his mother , then scheduled in May was cancelled due to Covid numbers in hospital , then July cancelled again due to Covid numbers. Now patient waiting for shots to knees to try instead of surgery first (Hyalgan injections); will get at . Has had other shots in his knees including Synvisc which was helpful for awhile but then stopped workinig for him. Has decreased his weight from 270 to 240. Uses cane or walker for mobility. For HEP doing leg lifts at home, small weights for shoulder. Has benefited from aquatic PT in the past. Prior Treatments and Tests chiropractic, aquatic PT, bilaterl shoulder surgery Future Testing and Treatments Planned Sees podiatry tomorrow for ingrown toenails. Getting Covid-19 booster. Treatment Goals Patient/Caregiver Goals Relieve some of the pain, be able to walk better. Prior Functional Status Baseline Function- ADL's Modified Independent Baseline Function- Mobility Modified Independent Current Functional Impairments (Reported) Functional Limitations- ADL's painful Functional Limitations- Mobility/Gait uses cane or walker Functional Limitations- Work/School retired Personal Factors Other Personal Factors That May Effect mom , depression Therapy/Recovery PT-OP-C Subjective Start: 07/24/21 09:54 Freq: Status: Active Protocol: Document 09/11/21 16:48 SAK (Rec: 09/11/21 16:55 [facility] [id number]) OP-PT Subjective Patient Comments Patient Comments Patient reports the injection doesn't seem to have helped his knee, has to wait for 3 months after injection to be able to have TKA but states he is thinking that is the option he is thinking about now. Increased pain after no aquatic PT. [id number] , going to have viewing soon, [facility] PT-OP-D Balance Start: 07/24/21 09:54 Freq: Status: Active Protocol: Document 07/25/21 10:31 SAK (Rec: 07/28/21 08:29 [facility] [id number]) OP-PT Balance Assessment Sitting Balance Static Sitting Balance Ability Normal Standing Balance Static Standing Balance Ability Fair Dynamic Standing Balance Ability Fair Balance Tests Other Other Balance Tests Performed unable to tolerate due to pain Rider Fall Scale Copyright Permission PT-OP-E Functional Tests Start: 07/24/21 09:54 Freq: Status: Active Protocol: Document 07/25/21 10:31 SAK (Rec: 07/25/21 11:14 [facility] [id number]) Functional Tests Five Times Sit to Stand Test Score 33 Comments using cane PT-OP-F Manual Assessment Start: 07/24/21 09:54 Freq: Status: Active Protocol: Document 07/25/21 10:31 SAK (Rec: 07/28/21 08:29 [facility] [id number]) Manual Assessments Other Manual Assessments Other Manual Assessments Patient has multiple areas of tenderness throughout shoulders, spine, and LE's especially knees. PT-OP-G Mobility & Gait Start: 07/24/21 09:54 Freq: Status: Active Protocol: Document 07/25/21 10:31 SAK (Rec: 07/28/21 08:29 [facility] [id number]) OP Mobility Evaluation Bed Mobility Rolling indep but labored Supine to and from Sit indep but labored Transfers Sit to Stand 5x sit to stand test 47 sec Bed to Chair Transfers indep Car Transfers indep Floor Transfers NA OP Gait Assessment Gait Gait Assistance Required: Independent Distance (Feet) 50 Assistive Devices Assistive Device Straight Cane Gait Deviations General Gait Pattern Antalgic,Decreased Stride Length,Decreased Feet Clearance Factors Limiting Gait Function Factors Limiting Gait Function Decreased Strength,Limited Range of Motion,Pain Stair Climbing Evaluation Devices Stair Climbing Assistive Devices Left Railing,Right Railing Technique/Endurance Stair Climbing Technique Step to Step PT-OP-H Neuro Start: 07/24/21 09:54 Freq: Status: Active Protocol: Document 07/25/21 10:31 SAK (Rec: 07/28/21 08:29 [facility] [id number]) Sensation Evaluation Gross Sensation Gross Sensation Left LE Impaired,Right LE Impaired Sensation Description Numbness PT-OP-J Posture/Palpation/Skin Start: 07/24/21 09:54 Freq: Status: Active Protocol: Document 07/25/21 10:31 SAK (Rec: 07/25/21 11:14 SAK [id number]) Posture Evaluation Position Standing Head/C-Spine Posture Side Bent Right,C-Spine Flattened T-Spine Posture Increased Kyphosis L-Spine Posture Rotation Right,Increased Lordosis Shoulder Subluxation Degree (R) < 1 Finger wide Scapula Posture (L) Protracted Arm Posture (R) Internally Rotated Knee Posture (L) Genu Varus,(R) Genu Varus Palpation Assessment Location left knee Palpation Findings Tenderness Palpation Details medial joint line PT-OP-K Range of Motion Start: 07/24/21 09:54 Freq: Status: Active Protocol: Document 07/25/21 10:31 SAK (Rec: 07/25/21 11:14 SAK [id number]) Cervical Spine Range of Motion Cervical Spine Active ROM Limitations Soft Tissue Tightness,Bony Restriction,Pain Comments mod decrease all motions Lumbar Spine Range of Motion Lumbar Spine Active ROM Limitations Soft Tissue Tightness,Pain Comments mod decrease all motions PT-OP-L Special Tests Start: 07/24/21 09:54 Freq: Status: Active Protocol: Document 07/25/21 10:31 SAK (Rec: 07/28/21 08:29 SAK [id number]) Special Tests Lumbar Spine Special Tests 1 Comments too painful Shoulder Special Tests 1 Comments too painful Knee Special Tests 1 Comments unable to tolerate due to pain all movement or tests PT-OP-M Strength Start: 07/24/21 09:54 Freq: Status: Active Protocol: Document 07/25/21 10:31 SAK (Rec: 07/28/21 08:29 [facility] [id number]) Shoulder Strength Shoulder Manual Muscle Testing fuad Flexion 3- Fair- Extension 3- Fair- Abduction (C5) 3- Fair- External Rotation 3- Fair- Internal Rotation 3- Fair- Horizontal Abduction 3- Fair- Horizontal Adduction 3- Fair- Elbow/Forearm Strength Elbow and Forearm Manual Muscle Testing fuad Flexion (C6) 4 Good Extension (C7) 4 Good Hip Strength Hip Manual Muscle Testing fuad Flexion (L2) 3+ Fair+ Extension (S1) 3- Fair- Abduction 3+ Fair+ Adduction 3+ Fair+ External Rotation 3+ Fair+ Knee Strength Knee Manual Muscle Testing fuad Flexion (S2) 4- Good- Extension (L3) 4- Good- Comments painful Ankle/Foot Strength Ankle and Foot Manual Muscle Testing fuad Dorsiflexion (L4) 4 Good Plantarflexion (S1) 4 Good PT-OP-Q Treatments Start: 07/24/21 09:54 Freq: Status: Active Protocol: Document 07/25/21 10:31 JARROD (Rec: 07/28/21 08:29 [facility] [id number]) Self-Care/Home Management Treatment Education Patient Education Fall Risk,Pain Management, Safety PT-OP-S Aquatic Treatment Start: 07/24/21 09:54 Freq: Status: Active Protocol: Document 09/11/21 16:48 [facility] (Rec: 09/11/21 16:55 [facility] [id number]) Aquatics Treatment Water Walking [place] December Water Level Chest Level [place] Water Level Chest Level Sideways Water Level Chest Level Level of Assistance Independent Comments HABD/HADD; lateral ab,ad arms Forwards Water Level Chest Level Level of Assistance Verbal Cues Lower Extremity Exercises knee flex/ext Details at wall Body Position Standing Water Level Chest Level Reps/Duration 10 B Comments L knee painful squats Details mini Body Position Standing Water Level Chest Level Reps/Duration 10 Lower Extremity Stretches ITB Details at wall Body Position Standing Water Level Waist Level Equipment large ankle floats Reps/Duration 30 sec L side hip flexor Details at wall Body Position Standing Water Level Waist Level Reps/Duration 30 sec HS Details hs Body Position Standing Water Level Chest Level Reps/Duration 30 sec Comments on stairs 2 Details quad stretch Body Position Standing Water Level Chest Level Reps/Duration 30 sec right only Comments L knee limited d/t pain 1 Details Calf Stretch Body Position Standing Water Level Waist Level Equipment toes on wall Reps/Duration 2 reps Comments at stairs [place] Activities [place] Activities Bicycle,Cross Country,Hip Abduction/Adduction,Sit Kicks Duration 20 Swim Strokes modified [email or web address]. baackstroke Laps/Duration 5 min Comments lg blue float PT-OP-T Assessment and Plan Start: 07/24/21 09:54 Freq: Status: Active Protocol: Document 09/11/21 16:48 [facility] (Rec: 09/11/21 16:55 [facility] [id number]) Physical Therapy Assessment Goals Four Impairment functional strength Impairment 5x sit to stand test 47 seconds Care Home Goal (LTG) Patient will be able to sit to stand x5 in no greater than 30 sec as measure of improved LE functional strength LTG Duration 09/23/21 Three Impairment ROM and strength Impairment Patient has deficits in ROM and strength throughout his shoulders, spine, and LE's with poor tolerance for activity or exercise Short Term Goal (STG) Patient will be able to tolerate 45 min aquatic exercise program with minimal to no increase in pain for purposes of ROM, strengthening , pain management STG Duration Advertising Inserter Goal (LTG) Patient will be safe and independent with aquatic exercise program for long-term fitness and pain management and demonstrate improved ROM and strength with demonstrated improved ability to perform his ADL's in the home. LTG Duration 09/23/21 Two Impairment Activity tolerance Impairment Oswestry disability index score 66% Short Term Goal (STG) Decrease ALEKS score to no greater than 50% STG Duration 08/25/21 Care Home Goal (LTG) Decrease ALEKS score to no greater than 40% as measure of improved activity tolerence and quality of life LTG Duration 09/23/21 One Impairment Activity tolerance Impairment Lower extremity functional scale 23% Short Term Goal (STG) Improve LEFS score to at least 40% STG Duration 08/25/21 Care Home Goal (LTG) Improve LEFS to at least 60% as measure of improved activity tolerance and quality of life LTG Duration 09/23/21 Assessment Summary Assessment Fair tolerance for therapy activities, patient continues to work hard despite pain, hoping to be as strong as possible for potential TKA. Physical Therapy Plan Frequency and Duration Frequency of Treatment 2x/Week Duration of Treatment 8 weeks Plan of Care Start Date 07/25/21 Plan of Care End Date 09/23/21 Therapeutic Interventions Therapeutic Interventions Aquatic Therapy,Patient/ Caregiver Education,Self-Care/ Home Management Next Visit Focus/Plan Next Note Type Treatment Note Next Visit Plan Patient initially stiff and c/ o pain, but that decreased throughout session. Patient refused ankle weight left. Cues for neutral LE alignment with all activities, good tolerance for use of large ankle floats for stretching exercises.
--- NOTE | 2022-09-25 11:48 | PT.OPDS ---
Current Diagnoses Low back pain, unspecified (09/11/21) Visit Care Team Role Provider Type Luis Collier MD Primary Care Provider Non-Staff Specialty: Medical Address: [address] [facility], [place], [address] Email: Attending Provider Referring Provider Specialty: Address: Phone: Fax: Email: Visit Number Visit Number [id number] Discharge Summary PT-OP-B Current Condition Start: 07/24/21 09:54 Freq: Status: Active Protocol: Document 07/25/21 10:31 SAK (Rec: 07/25/21 11:14 [facility] [id number]) Current Condition History of Current Condition Onset Date 1969' Current Complaints LBP,sciatica fuad knee pain, bilateral shoulder pain History of Current Condition Long history of pain since was in [place]. Has had bilateral shoulder surgeries and has limited function, persistent LBP, bilateral knee pain left greater than right. Was supposed to get TKA's bilaterally in February was cancelled due to of his mother , then scheduled in May was cancelled due to Covid numbers in hospital , then July cancelled again due to Covid numbers. Now patient waiting for shots to knees to try instead of surgery first (Hyalgan injections); will get at . Has had other shots in his knees including Synvisc which was helpful for awhile but then stopped workinig for him. Has decreased his weight from 270 to 240. Uses cane or walker for mobility. For HEP doing leg lifts at home, small weights for shoulder. Has benefited from aquatic PT in the past. Prior Treatments and Tests chiropractic, aquatic PT, bilaterl shoulder surgery Future Testing and Treatments Planned Sees podiatry tomorrow for ingrown toenails. Getting Covid-19 booster. Treatment Goals Patient/Caregiver Goals Relieve some of the pain, be able to walk better. Prior Functional Status Baseline Function- ADL's Modified Independent Baseline Function- Mobility Modified Independent Current Functional Impairments (Reported) Functional Limitations- ADL's painful Functional Limitations- Mobility/Gait uses cane or walker Functional Limitations- Work/School retired Personal Factors Other Personal Factors That May Effect mom , depression Therapy/Recovery PT-OP-C Subjective Start: 07/24/21 09:54 Freq: Status: Active Protocol: Document 09/11/21 16:48 [facility] (Rec: 09/11/21 16:55 [facility] [id number]) OP-PT Subjective Patient Comments Patient Comments Patient reports the injection doesn't seem to have helped his knee, has to wait for 3 months after injection to be able to have TKA but states he is thinking that is the option he is thinking about now. Increased pain after no aquatic PT. [id number] , going to have viewing soon, next spring take her body to [facility]. PT-OP-D Balance Start: 07/24/21 09:54 Freq: Status: Active Protocol: Document 07/25/21 10:31 SAK (Rec: 07/28/21 08:29 [facility] [id number]) OP-PT Balance Assessment Sitting Balance Static Sitting Balance Ability Normal Standing Balance Static Standing Balance Ability Fair Dynamic Standing Balance Ability Fair Balance Tests Other Other Balance Tests Performed unable to tolerate due to pain Rider Fall Scale Copyright Permission PT-OP-E Functional Tests Start: 07/24/21 09:54 Freq: Status: Active Protocol: Document 07/25/21 10:31 SAK (Rec: 07/25/21 11:14 [facility] [id number]) Functional Tests Five Times Sit to Stand Test Score 33 Comments using cane PT-OP-F Manual Assessment Start: 07/24/21 09:54 Freq: Status: Active Protocol: Document 07/25/21 10:31 SAK (Rec: 07/28/21 08:29 [facility] [id number]) Manual Assessments Other Manual Assessments Other Manual Assessments Patient has multiple areas of tenderness throughout shoulders, spine, and LE's especially knees. PT-OP-G Mobility & Gait Start: 07/24/21 09:54 Freq: Status: Active Protocol: Document 07/25/21 10:31 SAK (Rec: 07/28/21 08:29 [facility] [id number]) OP Mobility Evaluation Bed Mobility Rolling indep but labored Supine to and from Sit indep but labored Transfers Sit to Stand 5x sit to stand test 47 sec Bed to Chair Transfers indep Car Transfers indep Floor Transfers NA OP Gait Assessment Gait Gait Assistance Required: Independent Distance (Feet) 50 Assistive Devices Assistive Device Straight Cane Gait Deviations General Gait Pattern Antalgic,Decreased Stride Length,Decreased Feet Clearance Factors Limiting Gait Function Factors Limiting Gait Function Decreased Strength,Limited Range of Motion,Pain Stair Climbing Evaluation Devices Stair Climbing Assistive Devices Left Railing,Right Railing Technique/Endurance Stair Climbing Technique Step to Step PT-OP-H Neuro Start: 07/24/21 09:54 Freq: Status: Active Protocol: Document 07/25/21 10:31 SAK (Rec: 07/28/21 08:29 SAK [id number]) Sensation Evaluation Gross Sensation Gross Sensation Left LE Impaired,Right LE Impaired Sensation Description Numbness PT-OP-J Posture/Palpation/Skin Start: 07/24/21 09:54 Freq: Status: Active Protocol: Document 07/25/21 10:31 SAK (Rec: 07/25/21 11:14 SAK [id number]) Posture Evaluation Position Standing Head/C-Spine Posture Side Bent Right,C-Spine Flattened T-Spine Posture Increased Kyphosis L-Spine Posture Rotation Right,Increased Lordosis Shoulder Subluxation Degree (R) < 1 Finger wide Scapula Posture (L) Protracted Arm Posture (R) Internally Rotated Knee Posture (L) Genu Varus,(R) Genu Varus Palpation Assessment Location left knee Palpation Findings Tenderness Palpation Details medial joint line PT-OP-K Range of Motion Start: 07/24/21 09:54 Freq: Status: Active Protocol: Document 07/25/21 10:31 SAK (Rec: 07/25/21 11:14 [facility] [id number]) Cervical Spine Range of Motion Cervical Spine Active ROM Limitations Soft Tissue Tightness,Bony Restriction,Pain Comments mod decrease all motions Lumbar Spine Range of Motion Lumbar Spine Active ROM Limitations Soft Tissue Tightness,Pain Comments mod decrease all motions PT-OP-L Special Tests Start: 07/24/21 09:54 Freq: Status: Active Protocol: Document 07/25/21 10:31 SAK (Rec: 07/28/21 08:29 SAK [id number]) Special Tests Lumbar Spine Special Tests 1 Comments too painful Shoulder Special Tests 1 Comments too painful Knee Special Tests 1 Comments unable to tolerate due to pain all movement or tests PT-OP-M Strength Start: 07/24/21 09:54 Freq: Status: Active Protocol: Document 07/25/21 10:31 SAK (Rec: 07/28/21 08:29 SAK [id number]) Shoulder Strength Shoulder Manual Muscle Testing fuad Flexion 3- Fair- Extension 3- Fair- Abduction (C5) 3- Fair- External Rotation 3- Fair- Internal Rotation 3- Fair- Horizontal Abduction 3- Fair- Horizontal Adduction 3- Fair- Elbow/Forearm Strength Elbow and Forearm Manual Muscle Testing fuad Flexion (C6) 4 Good Extension (C7) 4 Good Hip Strength Hip Manual Muscle Testing fuad Flexion (L2) 3+ Fair+ Extension (S1) 3- Fair- Abduction 3+ Fair+ Adduction 3+ Fair+ External Rotation 3+ Fair+ Knee Strength Knee Manual Muscle Testing fuad Flexion (S2) 4- Good- Extension (L3) 4- Good- Comments painful Ankle/Foot Strength Ankle and Foot Manual Muscle Testing fuad Dorsiflexion (L4) 4 Good Plantarflexion (S1) 4 Good PT-OP-T Assessment and Plan Start: 07/24/21 09:54 Freq: Status: Active Protocol: Document 09/25/22 11:48 JARROD (Rec: 09/25/22 11:48 JARROD [id number]) Physical Therapy Plan Discharge Physical Therapy Discharge Reasons No Longer Attending PT
== END | disposition home or self-care (01) ==
LOC: PHYS 07-25 10:06
PROVIDERS: PCP Student in an Organized Health Care Education/Training Program
DX: M54.50 Low back pain, unspecified (principal)
CPT/HCPCS: 97113; 97162; 97535

== ENCOUNTER 2022-10-23 13:47 | Emergency (ER) | payer OTHER, SELFPAY ==
[2021-12-20 17:44] VITALS: BMI 31.1
[2022-10-23 14:01] VITALS: BP 148/67; PULSE 77; RESP 17; TEMP 36.6; O2SAT 99; BMI 34.4
--- NOTE | 2022-10-23 18:36 | ED_ITS ---
HPI - Extremity Problem General Chief complaint: Extremity Problem,Nontraumatic Stated complaint: knees burning mid thigh down/back of head RT emily Time Seen by Provider: 10/23/22 18:10 Source: patient Mode of arrival: Wheelchair Limitations: no limitations History of Present Illness HPI Narrative: 72-year-old male who is here for evaluation of 2 separate things. He is here because several weeks of right-sided upper back pain that has been worsening/constant over the past 3 days. No specific injury. He states that it does radiate up to the back of his head. It hurts when he moves his head. He has been taking his medications at home as prescribed. He is also here because a couple weeks ago he fell while getting out of his truck. He states he hyperextended his lower legs and since that time has had pain from his mid hamstrings down to his mid calf region. It is now constant as well. It is a burning sensation. Related Data Home Medications Medication Instructions Recorded Confirmed polyethylene glycol 3350 17 17 gm PO QDAYP constipation ##0 04/30/13 12/21/21 gram/dose oral powder (Miralax) allopurinol 300 mg tablet 300 mg PO DAILY ##0 04/16/17 12/21/21 diclofenac sodium 1 % topical gel 1 tj topical Q4H PRN 04/16/17 12/21/21 (Voltaren) osteoarthritis ##0 doxazosin 8 mg tablet (Cardura) 8 mg PO BEDTIME ##0 04/16/17 12/21/21 sildenafil 100 mg tablet (Viagra) 100 mg PO PRN PRN Sexual Activity 04/16/17 12/21/21 ##0 artificial 1 spray PO PRN PRN Dry Mouth 03/24/19 12/21/21 saliva(carboxymethylcellulose-electrolytes) spray pump bumetanide 2 mg tablet 2 mg PO BID 03/24/19 12/21/21 capsaicin 0.025 % topical cream 1 applic topical PRN PRN pain 03/24/19 12/21/21 carboxymethylcellulose 0.5 1 applic ophthalmic (eye) QID 03/24/19 12/21/21 %-glycerin 0.9 % (PF) eye drops,dropperette cholecalciferol (vitamin D3) 25 2,000 unit PO DAILY 03/24/19 12/21/21 mcg (1,000 unit) capsule dexlansoprazole 60 mg 60 mg PO DAILY 03/24/19 12/21/21 capsule,biphase delayed release fexofenadine 180 mg tablet 180 mg PO DAILY 03/24/19 12/21/21 fluoride (sodium) 1.1 % dental 1 applic dental DIRECTED 03/24/19 12/21/21 cream insulin aspart U-100 100 unit/mL See Rx Instructions .Route .COMPLEX 03/24/19 12/21/21 subcutaneous solution multivitamin with minerals 1 cap PO DAILY 03/24/19 12/21/21 pregabalin 75 mg capsule 75 mg PO BID 03/24/19 12/21/21 spironolactone 25 mg tablet 25 mg PO BID 03/24/19 12/21/21 tolterodine 4 mg capsule,extended 4 mg PO DAILY 03/24/19 12/21/21 release 24 hr vitamin B complex 1 tab PO DAILY 03/24/19 12/21/21 chlorhexidine gluconate 0.12 % 15 ml mucous membrane BID 05/23/19 12/21/21 mouthwash chlorhexidine gluconate 4 % 1 applic topical DAILY 05/23/19 12/21/21 topical liquid insulin glargine 100 unit/mL 70 unit SUBCUT QAM 05/23/19 12/21/21 subcutaneous solution ipratropium 0.5 mg-albuterol 3 mg 1 ea inhalation DIRECTED 05/23/19 12/21/21 (2.5 mg base)/3 mL nebulization soln sennosides 8.6 mg-docusate sodium 2 tab PO DAILY 05/23/19 12/21/21 50 mg tablet atorvastatin 20 mg tablet 20 mg PO DAILY 12/02/21 12/21/21 losartan 25 mg tablet 25 mg PO DAILY 12/02/21 12/21/21 semaglutide 0.25 mg or 0.5 mg (2 1 mg SUBCUT QWEEK 12/02/21 12/21/21 mg/1.5 mL) subcutaneous pen injector (Ozempic) Previous Rx's Medication Instructions Recorded cyclobenzaprine 10 mg tablet 10 mg PO TID PRN muscle spasm #30 05/23/19 tabs tramadol 50 mg tablet 50 mg PO Q8H PRN pain #7 tabs 08/19/19 lidocaine 5 % topical patch 1 patch topical DAILY PRN pain #15 10/21/20 ea hydrocodone 5 mg-acetaminophen 325 1 tab PO BID PRN pain #10 tabs 10/31/21 mg tablet methocarbamol 500 mg tablet 500 mg PO TID PRN muscle spasm #20 10/31/21 tabs oxycodone 5 mg tablet 5 mg PO Q6H PRN pain #14 tabs 12/22/21 cyclobenzaprine 10 mg tablet 10 mg PO TID PRN muscle spasm #10 03/22/22 tabs hydrocodone 5 mg-acetaminophen 325 1 tab PO Q6H PRN pain #10 tabs 03/22/22 mg tablet cyclobenzaprine 10 mg tablet 10 mg PO TID PRN muscle spasm #21 10/23/22 tabs prednisone 20 mg tablet 20 mg PO DAILY #3 tabs 10/23/22 tramadol 50 mg tablet 50 mg PO Q6H PRN pain #12 tabs 10/23/22 Allergies Allergy/AdvReac Type Severity Reaction Status Date / Time gabapentin Allergy Verified 10/23/22 14:01 Review of Systems Constitutional Constitutional: Reports system reviewed and no additional complaints, except as documented Genitourinary Genitourinary: Reports system reviewed and no additional complaints, except as documented Musculoskeletal Musculoskeletal: Reports system reviewed and no additional complaints, except as documented Integumentary/Breasts Skin/Breast: Reports system reviewed and no additional complaints, except as documented Neurologic Neurologic: Reports system reviewed and no additional complaints, except as documented Patient History Medical History Constipation GERD (gastroesophageal reflux disease) Heart failure HTN (hypertension) Hypercholesteremia Knee pain Renal disease Social History marital status: household members: spouse lives independently: Yes Smoking Status: Former smoker alcohol intake: former Smoking Status: Former smoker tobacco type: cigarettes alcohol intake frequency: 0-2 drinks per day Substance Use Type: does not use Exam Initial Vital Signs Initial Vital Signs: Vital Signs Temperature 97.8 F 10/23/22 14:01 Pulse Rate 77 10/23/22 14:01 Respiratory Rate 17 10/23/22 14:01 Blood Pressure 148/67 H 10/23/22 14:01 Pulse Oximetry 99 10/23/22 14:01 Oxygen Delivery Method 10/23/22 14:01 Resp Effort & Inspection: normal respiratory effort Back/Spine/Pelvis Other: Tenderness along the trapezius/levator scapula and also occipital muscle specific on the right side of his cervical region. Skin General: no rashes or lesions noted Neuro Sensory Exam: no sensory deficits noted Extrem Other: Discomfort with palpation of bilateral calf muscles from about the mid calf up the posterior portion of the calf muscles past the knee to bilateral medial hamstrings. Course Vital Signs Vital signs: Vital Signs - 8 hr 10/23/22 14:01 10/23/22 18:49 Temperature 97.8 F Pulse Rate 77 71 Respiratory Rate 17 18 Blood Pressure 148/67 H 150/72 H Pulse Oximetry 99 98 Oxygen Delivery Method Room Air Room Air MDM - Extremity (Nontraumatic) MDM Narrative Medical decision making narrative: Differential diagnosis includes pulled muscles, lumbar radiculopathy, DVT, cellulitis, vasculitis, cervical fracture, cervical muscle strain, headache, and others. Patient's symptoms been going on for the past several days/weeks. I have a very high suspicion this is musculoskeletal in origin. There is no indication for any radiologic studies. Patient is diabetic although he states he can take prednisone for a very short period of time swallowing put him on p rednisone for the next 3 days. I also feel the muscle relaxers will be helpful specifically with his cervical muscle injury. Reassured the patient that his physical exam was not consistent with a DVT. I have low suspicion for fractures. He does take oxycodone at home but he does not have any of his medication at home and I told him that he needed to follow-up with his primary doctor regarding this. The medications were sent to the pharmacy of his choice. He was given return precautions. He expressed understanding and agreement. Discharge Plan Departure Patient Disposition: Home Clinical Impression: Cervical strain, Strain of hamstring muscle Instructions: DI for Muscle Strain Activity Restrictions/Additional Instructions: Medications were sent to [facility] in [place] per your request. One of the medications is a steroid that can increase your blood sugars so make sure that you adjust your insulin accordingly. Contact your primary doctor for a follow- up. Prescriptions: New cyclobenzaprine 10 mg tablet 10 mg PO TID PRN (Reason: muscle spasm) Qty: 21 0RF tramadol 50 mg tablet 50 mg PO Q6H PRN (Reason: pain) Qty: 12 0RF prednisone 20 mg tablet 20 mg PO DAILY Qty: 3 0RF No Action polyethylene glycol 3350 [Miralax] 119 GM powder 17 gm PO QDAYP Qty: 0 diclofenac sodium [Voltaren] 1 % gel 1 tj Topical Q4H MDD 16 G (4 doses) PRN (Reason: osteoarthritis) Qty: 0 sildenafil [Viagra] 100 MG tablet 100 mg PO PRN MDD 100 mg PRN (Reason: Sexual Activity) Qty: 0 Label Comments: hasn't used in 'months' allopurinol 300 MG tablet 300 mg PO DAILY Qty: 0 doxazosin [Cardura] 8 MG tablet 8 mg PO BEDTIME Qty: 0 bumetanide 2 mg tablet 2 mg PO BID tolterodine 4 mg capsule,extended release 24hr 4 mg PO DAILY fexofenadine 180 mg tablet 180 mg PO DAILY spironolactone 25 mg tablet 25 mg PO BID cholecalciferol (vitamin D3) 1,000 unit capsule 2,000 unit PO DAILY fluoride (sodium) 1.1 % cream 1 applic dental DIRECTED dexlansoprazole 60 mg capsule,biphase delayed releas 60 mg PO DAILY insulin aspart U-100 100 unit/mL Solution See Rx Instructions .ROUTE .COMPLEX Rx Instructions: 1 dose subcutaneously ;24 ac breakfast, 24 at noon, 24 at bedtime. The above doses per today 12/21/21 at approx 1535. vitamin B complex Tablet 1 tab PO DAILY capsaicin 0.025 % cream 1 applic topical PRN PRN (Reason: pain) pregabalin 75 mg capsule 75 mg PO BID carboxymethylcell-glycerin(PF) 0.5-0.9 % Dropperette 1 applic ophthalmic (eye) QID multivitamin with minerals Capsule 1 cap PO DAILY artificial saliva (cmce-lytes) Mayer With Pump 1 spray PO PRN PRN (Reason: Dry Mouth) ipratropium-albuterol 0.5 mg-3 mg(2.5 mg base)/3 mL Solution For Nebulization 1 ea inhalation DIRECTED Label Comments: hasn't used for a couple months insulin glargine 100 unit/mL Solution 70 unit SUBCUT QAM Rx Instructions: Per Pt. Takes 35units left side ABD and the 0ther 35units on rt side per Pt at approx 1535 12/21/21 sennosides-docusate sodium 8.6-50 mg Tablet 2 tab PO DAILY chlorhexidine gluconate 4 % Liquid 1 applic TOPICAL DAILY Rx Instructions: to bumps on back of head chlorhexidine gluconate 0.12 % Mouthwash 15 ml MUCOUS MEMBRANE BID Rx Instructions: swish for 30 seconds and spit. after breakfast and at bedtime. do not eat or drink for at least one hour after use. cyclobenzaprine 10 mg tablet 10 mg PO TID PRN (Reason: muscle spasm) Qty: 30 0RF tramadol 50 mg tablet 50 mg PO Q8H PRN (Reason: pain) Qty: 7 0RF Label Comments: Doesn't take regularly lidocaine 5 % adhesive patch,medicated 1 patch topical DAILY PRN (Reason: pain) Qty: 15 0RF Rx Instructions: leave on most painful area for up to 12 hrs methocarbamol 500 mg tablet 500 mg PO TID PRN (Reason: muscle spasm) Qty: 20 0RF hydrocodone-acetaminophen 5-325 mg tablet 1 tab PO BID PRN (Reason: pain) Qty: 10 0RF atorvastatin 20 mg tablet 20 mg PO DAILY losartan 25 mg tablet 25 mg PO DAILY Ozempic 0.25 mg or 0.5 mg(2 mg/1.5 mL) Pen Injector 1 mg SUBCUT QWEEK Rx Instructions: Takes every Thursday. Per Pt 12/21/21 total dose 1.5mg oxycodone 5 mg tablet 5 mg PO Q6H PRN (Reason: pain) Qty: 14 0RF hydrocodone-acetaminophen 5-325 mg tablet 1 tab PO Q6H PRN (Reason: pain) Qty: 10 0RF cyclobenzaprine 10 mg tablet 10 mg PO TID PRN (Reason: muscle spasm) Qty: 10 0RF Referrals: Luis Collier MD [Primary Care Provider] - Stand Alone Forms: Patient Portal/API
[2022-10-23 18:49] VITALS: BP 150/72; PULSE 71; RESP 18; O2SAT 98
== END 2022-10-23 18:50 | disposition home or self-care (01) ==
PROVIDERS: Emergency Provider Emergency Medicine; PCP Student in an Organized Health Care Education/Training Program
DX: S16.1XXA Strain of muscle, fascia and tendon at neck level, initial encounter (principal); S86.912A Strain of unspecified muscle(s) and tendon(s) at lower leg level, left leg, initial encounter; S86.911A Strain of unspecified muscle(s) and tendon(s) at lower leg level, right leg, initial encounter; Z79.899 Other long term (current) drug therapy
CPT/HCPCS: 99281

== ENCOUNTER 2022-10-31 19:55 | Emergency (ER) | payer OTHER, SELFPAY ==
[2021-12-20 17:44] VITALS: BMI 31.1
[2022-10-31 20:29] VITALS: BP 164/70; PULSE 96; RESP 20; TEMP 36.3; O2SAT 99; BMI 34.4
--- NOTE | 2022-10-31 23:12 | ED.EXTPRO ---
HPI - Extremity Problem General Chief complaint: Extremity Problem,Nontraumatic Stated complaint: Both legs burnings/ joint pain 4-5 days Time Seen by Provider: 10/31/22 20:45 Source: patient Mode of arrival: Wheelchair Limitations: no limitations History of Present Illness HPI Narrative: Patient is a 72-year-old male who I evaluated here in the emergency department several days ago for pain in the back of his legs and also upper back pain. Since that time he states his symptoms have continued. He has contacted his primary doctor. He does have an appointment scheduled. 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 He is run out of the medications that he was given during his last visit. He is here seeking pain management. Related Data Home Medications Medication Instructions Recorded Confirmed polyethylene glycol 3350 17 17 gm PO QDAYP constipation ##0 04/30/13 12/21/21 gram/dose oral powder (Miralax) allopurinol 300 mg tablet 300 mg PO DAILY ##0 04/16/17 12/21/21 diclofenac sodium 1 % topical gel 1 tj topical Q4H PRN 04/16/17 12/21/21 (Voltaren) osteoarthritis ##0 doxazosin 8 mg tablet (Cardura) 8 mg PO BEDTIME ##0 04/16/17 12/21/21 sildenafil 100 mg tablet (Viagra) 100 mg PO PRN PRN Sexual Activity 04/16/17 12/21/21 ##0 artificial 1 spray PO PRN PRN Dry Mouth 03/24/19 12/21/21 saliva(carboxymethylcellulose-electrolytes) spray pump bumetanide 2 mg tablet 2 mg PO BID 03/24/19 12/21/21 capsaicin 0.025 % topical cream 1 applic topical PRN PRN pain 03/24/19 12/21/21 carboxymethylcellulose 0.5 1 applic ophthalmic (eye) QID 03/24/19 12/21/21 %-glycerin 0.9 % (PF) eye drops,dropperette cholecalciferol (vitamin D3) 25 2,000 unit PO DAILY 03/24/19 12/21/21 mcg (1,000 unit) capsule dexlansoprazole 60 mg 60 mg PO DAILY 03/24/19 12/21/21 capsule,biphase delayed release fexofenadine 180 mg tablet 180 mg PO DAILY 03/24/19 12/21/21 fluoride (sodium) 1.1 % dental 1 applic dental DIRECTED 03/24/19 12/21/21 cream insulin aspart U-100 100 unit/mL See Rx Instructions .Route .COMPLEX 03/24/19 12/21/21 subcutaneous solution multivitamin with minerals 1 cap PO DAILY 03/24/19 12/21/21 pregabalin 75 mg capsule 75 mg PO BID 03/24/19 12/21/21 spironolactone 25 mg tablet 25 mg PO BID 03/24/19 12/21/21 tolterodine 4 mg capsule,extended 4 mg PO DAILY 03/24/19 12/21/21 release 24 hr vitamin B complex 1 tab PO DAILY 03/24/19 12/21/21 chlorhexidine gluconate 0.12 % 15 ml mucous membrane BID 05/23/19 12/21/21 mouthwash chlorhexidine gluconate 4 % 1 applic topical DAILY 05/23/19 12/21/21 topical liquid insulin glargine 100 unit/mL 70 unit SUBCUT QAM 05/23/19 12/21/21 subcutaneous solution ipratropium 0.5 mg-albuterol 3 mg 1 ea inhalation DIRECTED 05/23/19 12/21/21 (2.5 mg base)/3 mL nebulization soln sennosides 8.6 mg-docusate sodium 2 tab PO DAILY 05/23/19 12/21/21 50 mg tablet atorvastatin 20 mg tablet 20 mg PO DAILY 12/02/21 12/21/21 losartan 25 mg tablet 25 mg PO DAILY 12/02/21 12/21/21 semaglutide 0.25 mg or 0.5 mg (2 1 mg SUBCUT QWEEK 12/02/21 12/21/21 mg/1.5 mL) subcutaneous pen injector (Ozempic) Previous Rx's Medication Instructions Recorded cyclobenzaprine 10 mg tablet 10 mg PO TID PRN muscle spasm #30 05/23/19 tabs tramadol 50 mg tablet 50 mg PO Q8H PRN pain #7 tabs 05/23/19 lidocaine 5 % topical patch 1 patch topical DAILY PRN pain #15 10/21/20 ea hydrocodone 5 mg-acetaminophen 325 1 tab PO BID PRN pain #10 tabs 10/31/21 mg tablet methocarbamol 500 mg tablet 500 mg PO TID PRN muscle spasm #20 10/31/21 tabs oxycodone 5 mg tablet 5 mg PO Q6H PRN pain #14 tabs 12/22/21 cyclobenzaprine 10 mg tablet 10 mg PO TID PRN muscle spasm #10 03/22/22 tabs hydrocodone 5 mg-acetaminophen 325 1 tab PO Q6H PRN pain #10 tabs 03/22/22 mg tablet cyclobenzaprine 10 mg tablet 10 mg PO TID PRN muscle spasm #21 10/23/22 tabs prednisone 20 mg tablet 20 mg PO DAILY #3 tabs 10/23/22 tramadol 50 mg tablet 50 mg PO Q6H PRN pain #12 tabs 10/23/22 cyclobenzaprine 10 mg tablet 10 mg PO TID PRN muscle spasm #21 10/31/22 tabs tramadol 50 mg tablet 50 mg PO Q8H PRN pain #21 tabs 10/31/22 Allergies Allergy/AdvReac Type Severity Reaction Status Date / Time gabapentin Allergy Verified 10/31/22 20:29 Review of Systems Constitutional Constitutional: Reports system reviewed and no additional complaints, except as documented Musculoskeletal Musculoskeletal: Reports system reviewed and no additional complaints, except as documented Neurologic Neurologic: Reports system reviewed and no additional complaints, except as documented Patient History Medical History Constipation GERD (gastroesophageal reflux disease) Heart failure HTN (hypertension) Hypercholesteremia Knee pain Renal disease Social History marital status: household members: spouse lives independently: Yes Smoking Status: Former smoker alcohol intake: former Smoking Status: Former smoker tobacco type: cigarettes alcohol intake frequency: 0-2 drinks per day Substance Use Type: does not use Exam Initial Vital Signs Initial Vital Signs: Vital Signs Temperature 97.3 F L 10/31/22 20:29 Pulse Rate 96 H 10/31/22 20:29 Respiratory Rate 20 10/31/22 20:29 Blood Pressure 164/70 H 10/31/22 20:29 Pulse Oximetry 99 10/31/22 20:29 Oxygen Delivery Method 10/31/22 20:29 Const General: cooperative and No ill appearing HENMT Head: normal to inspection and normocephalic Back/Spine/Pelvis Other: Discomfort upper thoracic region Skin General: no rashes or lesions noted Neuro General: patient alert, patient awake and moves all extremities Extrem General: normal to inspection and capillary refill normal Course Orders Ordered: Discontinued Medications Cyclobenzaprine HCl (Cyclobenzaprine 10 Mg Prepack) 1 bottle MISC SEEINSTR ONE Stop: 10/31/22 23:13 Last Admin: 10/31/22 23:23 Dose: 1 bottle Documented By: ANASTACIO Tramadol HCl (Tramadol 50 Mg Prepack) 1 bottle MISC SEEINSTR ONE Stop: 10/31/22 23:13 Last Admin: 10/31/22 23:23 Dose: 1 bottle Documented By: ANASTACIO Vital Signs Vital signs: Vital Signs - 8 hr 10/31/22 20:29 10/31/22 23:28 Temperature 97.3 F L 97.3 F L Pulse Rate 96 H 78 Respiratory Rate 20 18 Blood Pressure 164/70 H 154/76 H Pulse Oximetry 99 98 Oxygen Delivery Method Room Air Room Air MDM - Extremity (Nontraumatic) MDM Narrative Medical decision making narrative: Continued symptoms since the last time that he was here. He is scheduled to see his primary doctor. No indication for further radiologic studies. I will refill his pain medication but he was informed that he needed to talk with his primary doctor for anymore medications. He expressed understanding and agreement. Discharge Plan Departure Patient Disposition: Home Clinical Impression: Acute thoracic back pain, Bilateral leg pain Activity Restrictions/Additional Instructions: It is important that you follow-up with your primary doctor for long-term pain management prescriptions. Return to the emergency department for any new symptoms. Continue all of your medications as directed. Prescriptions: New cyclobenzaprine 10 mg tablet 10 mg PO TID PRN (Reason: muscle spasm) Qty: 21 0RF tramadol 50 mg tablet 50 mg PO Q8H PRN (Reason: pain) Qty: 21 0RF No Action polyethylene glycol 3350 [Miralax] 119 GM powder 17 gm PO QDAYP Qty: 0 diclofenac sodium [Voltaren] 1 % gel 1 tj Topical Q4H MDD 16 G (4 doses) PRN (Reason: osteoarthritis) Qty: 0 sildenafil [Viagra] 100 MG tablet 100 mg PO PRN MDD 100 mg PRN (Reason: Sexual Activity) Qty: 0 Label Comments: hasn't used in 'months' allopurinol 300 MG tablet 300 mg PO DAILY Qty: 0 doxazosin [Cardura] 8 MG tablet 8 mg PO BEDTIME Qty: 0 cyclobenzaprine 10 mg tablet 10 mg PO TID PRN (Reason: muscle spasm) Qty: 21 0RF tramadol 50 mg tablet 50 mg PO Q6H PRN (Reason: pain) Qty: 12 0RF prednisone 20 mg tablet 20 mg PO DAILY Qty: 3 0RF bumetanide 2 mg tablet 2 mg PO BID tolterodine 4 mg capsule,extended release 24hr 4 mg PO DAILY fexofenadine 180 mg tablet 180 mg PO DAILY spironolactone 25 mg tablet 25 mg PO BID cholecalciferol (vitamin D3) 1,000 unit capsule 2,000 unit PO DAILY fluoride (sodium) 1.1 % cream 1 applic dental DIRECTED dexlansoprazole 60 mg capsule,biphase delayed releas 60 mg PO DAILY insulin aspart U-100 100 unit/mL Solution See Rx Instructions .ROUTE .COMPLEX Rx Instructions: 1 dose subcutaneously ;24 ac breakfast, 24 at noon, 24 at bedtime. The above doses per today 12/21/21 at approx 1535. vitamin B complex Tablet 1 tab PO DAILY capsaicin 0.025 % cream 1 applic topical PRN PRN (Reason: pain) pregabalin 75 mg capsule 75 mg PO BID carboxymethylcell-glycerin(PF) 0.5-0.9 % Dropperette 1 applic ophthalmic (eye) QID multivitamin with minerals Capsule 1 cap PO DAILY artificial saliva (cmce-lytes) Jackson With Pump 1 spray PO PRN PRN (Reason: Dry Mouth) ipratropium-albuterol 0.5 mg-3 mg(2.5 mg base)/3 mL Solution For Nebulization 1 ea inhalation DIRECTED Label Comments: hasn't used for a couple months insulin glargine 100 unit/mL Solution 70 unit SUBCUT QAM Rx Instructions: Per Pt. Takes 35units left side ABD and the 0ther 35units on rt side per Pt at approx 1535 12/21/21 sennosides-docusate sodium 8.6-50 mg Tablet 2 tab PO DAILY chlorhexidine gluconate 4 % Liquid 1 applic TOPICAL DAILY Rx Instructions: to bumps on back of head chlorhexidine gluconate 0.12 % Mouthwash 15 ml MUCOUS MEMBRANE BID Rx Instructions: swish for 30 seconds and spit. after breakfast and at bedtime. do not eat or drink for at least one hour after use. cyclobenzaprine 10 mg tablet 10 mg PO TID PRN (Reason: muscle spasm) Qty: 30 0RF tramadol 50 mg tablet 50 mg PO Q8H PRN (Reason: pain) Qty: 7 0RF Label Comments: Doesn't take regularly lidocaine 5 % adhesive patch,medicated 1 patch topical DAILY PRN (Reason: pain) Qty: 15 0RF Rx Instructions: leave on most painful area for up to 12 hrs methocarbamol 500 mg tablet 500 mg PO TID PRN (Reason: muscle spasm) Qty: 20 0RF hydrocodone-acetaminophen 5-325 mg tablet 1 tab PO BID PRN (Reason: pain) Qty: 10 0RF atorvastatin 20 mg tablet 20 mg PO DAILY losartan 25 mg tablet 25 mg PO DAILY Ozempic 0.25 mg or 0.5 mg(2 mg/1.5 mL) Pen Injector 1 mg SUBCUT QWEEK Rx Instructions: Takes every Thursday. Per Pt 12/21/21 total dose 1.5mg oxycodone 5 mg tablet 5 mg PO Q6H PRN (Reason: pain) Qty: 14 0RF hydrocodone-acetaminophen 5-325 mg tablet 1 tab PO Q6H PRN (Reason: pain) Qty: 10 0RF cyclobenzaprine 10 mg tablet 10 mg PO TID PRN (Reason: muscle spasm) Qty: 10 0RF Referrals: Luis Collier MD [Primary Care Provider] - Stand Alone Forms: Patient Portal/API
[2022-10-31] MEDS: TRAMADOL 50 MG PREPACK 1 BOTTLE MISC (23:23)
[2022-10-31] MEDS: CYCLOBENZAPRINE 10 MG PREPACK 1 BOTTLE MISC (23:23)
[2022-10-31 23:28] VITALS: BP 154/76; PULSE 78; RESP 18; TEMP 36.3; O2SAT 98
== END 2022-10-31 23:25 | disposition home or self-care (01) ==
PROVIDERS: Emergency Provider Emergency Medicine; PCP Student in an Organized Health Care Education/Training Program
DX: M54.6 Pain in thoracic spine (principal); M79.605 Pain in left leg; M79.604 Pain in right leg; Z79.899 Other long term (current) drug therapy
CPT/HCPCS: 99281; 99283

== ENCOUNTER 2023-02-26 13:31 | Emergency (ER) | payer OTHER, MEDICARE, SELFPAY ==
[2021-12-20 17:44] VITALS: BMI 31.1
[2023-02-26 13:36] VITALS: BP 178/77; PULSE 96; RESP 18; TEMP 36.1; O2SAT 99
[2023-02-26 13:45] VITALS: BMI 29.7
--- NOTE | 2023-02-26 13:46 | PC.NURSE ---
Left knee surgery on 02/16. Left ankle swelling with ecchymosis to left lateral area of foot. No calf pain.
--- NOTE | 2023-02-26 13:52 | DI.US.S_ITS ---
PROCEDURE: US PERIPH VENOUS LOW EXTREM LT INDICATIONS: knee replaced >1 month ago, left lateral ankle tenderness TECHNIQUE: Real-time imaging, as well as color and pulse Doppler interrogation, were performed of the lower extremity deep veins from the inguinal ligament to the popliteal fossa. COMPARISON: None. FINDINGS: The common femoral, femoral and popliteal veins are normally compressible, and free of intraluminal thrombus. Color and pulse Doppler demonstrate normal phasic intraluminal flow. There is normal augmentation response to distal compression maneuver. IMPRESSION: Negative for deep venous thrombosis. Dictated by: Valerio Tomlinson M.D. on 02/26/2023 at 14:34 Approved by: Valerio Tomlinson M.D. on 02/26/2023 at 14:34
[2023-02-26] MEDS: ACETAMINOPHEN 325 MG TABLET 975 MG PO (14:04)
[2023-02-26] MEDS: LIDOCAINE PATCH 1 EACH ADH..PATCH TOP (14:04)
--- NOTE | 2023-02-26 14:47 | ED_ITS ---
HPI - Extremity Problem <Donya Cardenas, DEVELOPMENTAL THERAPIST - Last Filed: 02/26/23 15:45> General Chief complaint: Extremity Problem,Nontraumatic Stated complaint: L ankle swelling Time Seen by Provider: 02/26/23 13:52 Source: patient Mode of arrival: Ambulatory History of Present Illness HPI Narrative: This is a 72-year-old male presents to the emergency department complaining of swelling to his ankle 1.5 months status post left total knee replacement. He states it has been painful over last 4 days especially when walks on it. States that he has been walking more than usual last couple of days and working with PT and states that his ankle is sore with movement. Denies any rash, complains of tenderness to this tissue but denies any discoloration, known injury, or weakness. He denies any sensation changes other than being painful. Denies it being warm to palpation. Related Data Home Medications Medication Instructions Recorded Confirmed polyethylene glycol 3350 17 17 gm PO QDAYP constipation ##0 04/30/13 12/21/21 gram/dose oral powder (Miralax) allopurinol 300 mg tablet 300 mg PO DAILY ##0 04/16/17 12/21/21 diclofenac sodium 1 % topical gel 1 tj topical Q4H PRN 04/16/17 12/21/21 (Voltaren) osteoarthritis ##0 doxazosin 8 mg tablet (Cardura) 8 mg PO BEDTIME ##0 04/16/17 12/21/21 sildenafil 100 mg tablet (Viagra) 100 mg PO PRN PRN Sexual Activity 04/16/17 12/21/21 ##0 artificial 1 spray PO PRN PRN Dry Mouth 03/24/19 12/21/21 saliva(carboxymethylcellulose-electrolytes) spray pump bumetanide 2 mg tablet 2 mg PO BID 03/24/19 12/21/21 capsaicin 0.025 % topical cream 1 applic topical PRN PRN pain 03/24/19 12/21/21 carboxymethylcellulose 0.5 1 applic ophthalmic (eye) QID 03/24/19 12/21/21 %-glycerin 0.9 % (PF) eye drops,dropperette cholecalciferol (vitamin D3) 25 2,000 unit PO DAILY 03/24/19 12/21/21 mcg (1,000 unit) capsule dexlansoprazole 60 mg 60 mg PO DAILY 03/24/19 12/21/21 capsule,biphase delayed release fexofenadine 180 mg tablet 180 mg PO DAILY 03/24/19 12/21/21 fluoride (sodium) 1.1 % dental 1 applic dental DIRECTED 03/24/19 12/21/21 cream insulin aspart U-100 100 unit/mL See Rx Instructions .Route .COMPLEX 03/24/19 12/21/21 subcutaneous solution multivitamin with minerals 1 cap PO DAILY 03/24/19 12/21/21 pregabalin 75 mg capsule 75 mg PO BID 03/24/19 12/21/21 spironolactone 25 mg tablet 25 mg PO BID 03/24/19 12/21/21 tolterodine 4 mg capsule,extended 4 mg PO DAILY 03/24/19 12/21/21 release 24 hr vitamin B complex 1 tab PO DAILY 03/24/19 12/21/21 chlorhexidine gluconate 0.12 % 15 ml mucous membrane BID 05/23/19 12/21/21 mouthwash chlorhexidine gluconate 4 % 1 applic topical DAILY 05/23/19 12/21/21 topical liquid insulin glargine 100 unit/mL 70 unit SUBCUT QAM 05/23/19 12/21/21 subcutaneous solution ipratropium 0.5 mg-albuterol 3 mg 1 ea inhalation DIRECTED 05/23/19 12/21/21 (2.5 mg base)/3 mL nebulization soln sennosides 8.6 mg-docusate sodium 2 tab PO DAILY 05/23/19 12/21/21 50 mg tablet atorvastatin 20 mg tablet 20 mg PO DAILY 12/02/21 12/21/21 losartan 25 mg tablet 25 mg PO DAILY 12/02/21 12/21/21 semaglutide 0.25 mg or 0.5 mg (2 1 mg SUBCUT QWEEK 12/02/21 12/21/21 mg/1.5 mL) subcutaneous pen injector (Ozempic) Previous Rx's Medication Instructions Recorded cyclobenzaprine 10 mg tablet 10 mg PO TID PRN muscle spasm #30 05/23/19 tabs tramadol 50 mg tablet 50 mg PO Q8H PRN pain #7 tabs 05/23/19 lidocaine 5 % topical patch 1 patch topical DAILY PRN pain #15 10/21/20 ea hydrocodone 5 mg-acetaminophen 325 1 tab PO BID PRN pain #10 tabs 10/31/21 mg tablet methocarbamol 500 mg tablet 500 mg PO TID PRN muscle spasm #20 10/31/21 tabs oxycodone 5 mg tablet 5 mg PO Q6H PRN pain #14 tabs 12/22/21 cyclobenzaprine 10 mg tablet 10 mg PO TID PRN muscle spasm #10 03/22/22 tabs hydrocodone 5 mg-acetaminophen 325 1 tab PO Q6H PRN pain #10 tabs 03/22/22 mg tablet cyclobenzaprine 10 mg tablet 10 mg PO TID PRN muscle spasm #21 10/23/22 tabs prednisone 20 mg tablet 20 mg PO DAILY #3 tabs 10/23/22 tramadol 50 mg tablet 50 mg PO Q6H PRN pain #12 tabs 10/23/22 cyclobenzaprine 10 mg tablet 10 mg PO TID PRN muscle spasm #21 10/31/22 tabs tramadol 50 mg tablet 50 mg PO Q8H PRN pain #21 tabs 10/31/22 hydrocodone 5 mg-acetaminophen 325 1 tab PO TID PRN pain #14 tabs 02/26/23 mg tablet Allergies Allergy/AdvReac Type Severity Reaction Status Date / Time gabapentin Allergy Verified 02/26/23 13:39 Review of Systems <ARTEM Vieira - Last Filed: 02/26/23 15:45> Review of Systems ROS Unobtainable: All systems reviewed & are unremarkable except as noted in HPI and below Patient History <ARTEM Vieira - Last Filed: 02/26/23 15:45> Medical History Constipation GERD (gastroesophageal reflux disease) Heart failure HTN (hypertension) Hypercholesteremia Knee pain Renal disease Social History marital status: household members: spouse lives independently: Yes Smoking Status: Former smoker alcohol intake: former Smoking Status: Former smoker tobacco type: cigarettes alcohol intake frequency: 0-2 drinks per day Substance Use Type: does not use Exam <ARTEM Vieira - Last Filed: 02/26/23 15:45> Narrative Exam Narrative: Reviewed vitals signs and nursing notes. General: Pleasant, sitting upright, in no acute distress, well groomed, afebrile HEENT: symmetrical facial expressions, moist mucous membranes, neck is supple MSK: moves all extremities, no weakness, normal tone, ambulatory with mild limp, patient some edema surrounding the left lateral malleolus, no malleolar tenderness, no palpable fluid collection, no tenderness over ankle ligaments, patellar tendon, Achilles tendon, and no palpable suprapatellar effusion. Patient is tender to palpation around his ankle especially in the lateral aspect. No discoloration, rash, signs of infection. Skin: brisk capillary refill, without rash or wound Neuro: clear speech and normal cognition, A&O x3, GCS 15, no focal motor or sensation deficits Initial Vital Signs Initial Vital Signs: Vital Signs Temperature 97.0 F L 02/26/23 13:36 Pulse Rate 96 H 02/26/23 13:36 Respiratory Rate 18 02/26/23 13:36 Blood Pressure 178/77 H 02/26/23 13:36 Pulse Oximetry 99 02/26/23 13:36 Oxygen Delivery Method Room Air 02/26/23 13:36 <Stef Chavez DO - Last Filed: 02/27/23 07:02> Initial Vital Signs Initial Vital Signs: Vital Signs Temperature 97.0 F L 02/26/23 13:36 Pulse Rate 96 H 02/26/23 13:36 Respiratory Rate 18 02/26/23 13:36 Blood Pressure 178/77 H 02/26/23 13:36 Pulse Oximetry 99 02/26/23 13:36 Oxygen Delivery Method Room Air 02/26/23 13:36 Course <TREVOR VieiraP - Last Filed: 02/26/23 15:45> Orders Ordered: Discontinued Medications Acetaminophen (Acetaminophen 325 Mg Tablet) 975 mg PO NOW ONE Stop: 02/26/23 13:53 Last Admin: 02/26/23 14:04 Dose: 975 mg Documented By: CAN Lidocaine (Lidocaine Patch 1 Each Adh..Patch) 1 each TOP NOW ONE Stop: 02/26/23 13:53 Last Admin: 02/26/23 14:04 Dose: 1 each Documented By: CAN Vital Signs Vital signs: Vital Signs - 8 hr 02/26/23 13:36 Temperature 97.0 F L Pulse Rate 96 H Respiratory Rate 18 Blood Pressure 178/77 H Pulse Oximetry 99 Oxygen Delivery Method Room Air <Stef Chavez DO - Last Filed: 02/27/23 07:02> Orders Ordered: Discontinued Medications Acetaminophen (Acetaminophen 325 Mg Tablet) 975 mg PO NOW ONE Stop: 02/26/23 13:53 Last Admin: 02/26/23 14:04 Dose: 975 mg Documented By: CAN Lidocaine (Lidocaine Patch 1 Each Adh..Patch) 1 each TOP NOW ONE Stop: 02/26/23 13:53 Last Admin: 02/26/23 14:04 Dose: 1 each Documented By: CAN Vital Signs Vital signs: Vital Signs - 8 hr 02/26/23 13:36 Temperature 97.0 F L Pulse Rate 96 H Respiratory Rate 18 Blood Pressure 178/77 H Pulse Oximetry 99 Oxygen Delivery Method Room Air MDM - Extremity (Nontraumatic) <TREVOR VieiraP - Last Filed: 02/26/23 15:45> Imaging Data US - DVT: Radiologist's Impression: PROCEDURE:? US PERIPH VENOUS LOW EXTREM LT ? INDICATIONS:? knee replaced >1 month ago, left lateral ankle tenderness ? TECHNIQUE:? Real-time imaging, as well as color and pulse Doppler interrogation, were performed of the lower extremity deep veins from the inguinal ligament to the popliteal fossa.? ? COMPARISON:? None. ? FINDINGS:? The common femoral, femoral and popliteal veins are normally compressible, and free of intraluminal thrombus.? Color and pulse Doppler demonstrate normal phasic intraluminal flow.? There is normal augmentation response to distal compression maneuver. ? ? IMPRESSION:? ? Negative for deep venous thrombosis. ? ? Dictated by: Valerio Tomlinson M.D. on 02/26/2023 at 14:34 ? ? Approved by: Valerio Tomlinson M.D. on 02/26/2023 at 14:34 ? MDM Narrative Medical decision making narrative: Chief Complaint: leg swelling and pain Independent historian: Patient Multiple etiologies for patient's complaint considered including, but not limited to: DVT, contusion, ligamental injury of the ankle, dependent edema, cellulitis I have independently reviewed the patient's vital signs and nursing notes as well as prior records if available. My interpretation of imaging: Ultrasound DVT is negative for DVT Course of care: Patient expressed concern about being out of pain medication, he was tender to palpation of his lower ankle region, no suspected injury, ultrasound is negative for DVT which is why came in for today. Will prescribe hydrocodone for as needed pain, encouraged him to elevate, use compression wrap, ice, and this should help. Encouraged him to come back if he has worsening pain or pain out of portion is unable to walk. No pain with axial load. Social considerations that may affect disposition: none Questions are addressed and there is agreement with the plan and for follow-up. I consulted with the ED attending physician Dr. Chavez as needed for higher level of care considerations and they were available for discussion and recommendations regarding plan of care and diagnostic testing. Patient is appropriate for outpatient management. Discharge Plan Departure Patient Disposition: Home Clinical Impression: Ankle edema Instructions: How to Use an Elastic Bandage -- Edema, DI for Dependent Edema Activity Restrictions/Additional Instructions: *You have been diagnosed with swelling to your lower leg which is negative for a DVT. There is no blood clot here. This is great news for you. This is likely swelling related to increased walking and your ligaments and muscles getting used to the activity. Please elevate this frequently, apply some topical pain relief like lidocaine cream or diclofenac gel/Voltaren gel. Those are available [id number]. Please use a pain pill as needed every 6 hours and avoid constipation with something like MiraLax. Stay hydrated, rest, elevate, ice, and this should get better in a few days. Please use an elastic bandage or compression stocking to help with the swelling. *What to do: *Please continue to take your regular medications as directed. [x ] New medication prescriptions sent to your pharmacy: [[facility] [place] ] [ ] New medication written as a paper prescription [ ] No new medications given *Please call and schedule follow up with your primary care provider in 2-3 days, at least for an update. Let them know you were seen in the Emergency Department for the above problem. We will electronically transmit a record of today's note if your PCP or specialist is in our system. *If you do not have a primary care provider please contact [phone] to establish care with one of the [facility] primary care providers. *Return to the Emergency Department for worsening symptoms, inability to keep liquids down, fever greater than 101F, chills, or other concerning symptom. Prescriptions: New hydrocodone-acetaminophen 5-325 mg tablet 1 tab PO TID PRN (Reason: pain) Qty: 14 0RF No Action polyethylene glycol 3350 [Miralax] 119 GM powder 17 gm PO QDAYP Qty: 0 diclofenac sodium [Voltaren] 1 % gel 1 tj Topical Q4H MDD 16 G (4 doses) PRN (Reason: osteoarthritis) Qty: 0 sildenafil [Viagra] 100 MG tablet 100 mg PO PRN MDD 100 mg PRN (Reason: Sexual Activity) Qty: 0 Patient Comments: hasn't used in 'months' allopurinol 300 MG tablet 300 mg PO DAILY Qty: 0 doxazosin [Cardura] 8 MG tablet 8 mg PO BEDTIME Qty: 0 cyclobenzaprine 10 mg tablet 10 mg PO TID PRN (Reason: muscle spasm) Qty: 21 0RF tramadol 50 mg tablet 50 mg PO Q6H PRN (Reason: pain) Qty: 12 0RF prednisone 20 mg tablet 20 mg PO DAILY Qty: 3 0RF bumetanide 2 mg tablet 2 mg PO BID tolterodine 4 mg capsule,extended release 24hr 4 mg PO DAILY fexofenadine 180 mg tablet 180 mg PO DAILY spironolactone 25 mg tablet 25 mg PO BID cholecalciferol (vitamin D3) 1,000 unit capsule 2,000 unit PO DAILY fluoride (sodium) 1.1 % cream 1 applic dental DIRECTED dexlansoprazole 60 mg capsule,biphase delayed releas 60 mg PO DAILY insulin aspart U-100 100 unit/mL Solution See Rx Instructions .ROUTE .COMPLEX Rx Instructions: 1 dose subcutaneously ;24 ac breakfast, 24 at noon, 24 at bedtime. The above doses per today 12/21/21 at approx 1535. vitamin B complex Tablet 1 tab PO DAILY capsaicin 0.025 % cream 1 applic topical PRN PRN (Reason: pain) pregabalin 75 mg capsule 75 mg PO BID carboxymethylcell-glycerin(PF) 0.5-0.9 % Dropperette 1 applic ophthalmic (eye) QID multivitamin with minerals Capsule 1 cap PO DAILY artificial saliva (cmce-lytes) Veteran With Pump 1 spray PO PRN PRN (Reason: Dry Mouth) ipratropium-albuterol 0.5 mg-3 mg(2.5 mg base)/3 mL Solution For Nebulization 1 ea inhalation DIRECTED Patient Comments: hasn't used for a couple months insulin glargine 100 unit/mL Solution 70 unit SUBCUT QAM Rx Instructions: Per Pt. Takes 35units left side ABD and the 0ther 35units on rt side per Pt at approx 1535 12/21/21 sennosides-docusate sodium 8.6-50 mg Tablet 2 tab PO DAILY chlorhexidine gluconate 4 % Liquid 1 applic TOPICAL DAILY Rx Instructions: to bumps on back of head chlorhexidine gluconate 0.12 % Mouthwash 15 ml MUCOUS MEMBRANE BID Rx Instructions: swish for 30 seconds and spit. after breakfast and at bedtime. do not eat or drink for at least one hour after use. cyclobenzaprine 10 mg tablet 10 mg PO TID PRN (Reason: muscle spasm) Qty: 30 0RF tramadol 50 mg tablet 50 mg PO Q8H PRN (Reason: pain) Qty: 7 0RF Patient Comments: Doesn't take regularly lidocaine 5 % adhesive patch,medicated 1 patch topical DAILY PRN (Reason: pain) Qty: 15 0RF Rx Instructions: leave on most painful area for up to 12 hrs methocarbamol 500 mg tablet 500 mg PO TID PRN (Reason: muscle spasm) Qty: 20 0RF hydrocodone-acetaminophen 5-325 mg tablet 1 tab PO BID PRN (Reason: pain) Qty: 10 0RF atorvastatin 20 mg tablet 20 mg PO DAILY losartan 25 mg tablet 25 mg PO DAILY Ozempic 0.25 mg or 0.5 mg(2 mg/1.5 mL) Pen Injector 1 mg SUBCUT QWEEK Rx Instructions: Takes every Thursday. Per Pt 12/21/21 total dose 1.5mg oxycodone 5 mg tablet 5 mg PO Q6H PRN (Reason: pain) Qty: 14 0RF hydrocodone-acetaminophen 5-325 mg tablet 1 tab PO Q6H PRN (Reason: pain) Qty: 10 0RF cyclobenzaprine 10 mg tablet 10 mg PO TID PRN (Reason: muscle spasm) Qty: 10 0RF cyclobenzaprine 10 mg tablet 10 mg PO TID PRN (Reason: muscle spasm) Qty: 21 0RF tramadol 50 mg tablet 50 mg PO Q8H PRN (Reason: pain) Qty: 21 0RF Referrals: Luis Collier MD [Primary Care Provider] - Stand Alone Forms: Patient Portal/API <Stef Chavez DO - Last Filed: 02/27/23 07:02> Cosign ED Attending Chan Attestation: I was immediately available in the department for consultation. This documentation has been reviewed and I agree with assessment and plan. Supervised by Stef Chavez DO
[2023-02-26 15:55] VITALS: BP 136/62; PULSE 80; RESP 17; O2SAT 100
== END 2023-02-26 15:56 | disposition home or self-care (01) ==
PROVIDERS: Emergency Provider Nurse Practitioner Critical Care Medicine; Family Provider Student in an Organized Health Care Education/Training Program; PCP Student in an Organized Health Care Education/Training Program
DX: R60.0 Localized edema (principal); Z79.01 Long term (current) use of anticoagulants
CPT/HCPCS: 93971; 99283; 99284

== ENCOUNTER 2023-05-11 13:29 | Emergency (ER) | payer OTHER, SELFPAY ==
[2021-12-20 17:44] VITALS: BMI 31.1
[2023-05-11 13:52] VITALS: BP 174/77; PULSE 76; RESP 16; TEMP 36.3; O2SAT 98; BMI 25.0
== END 2023-05-11 15:13 | disposition left against medical advice (07) ==
PROVIDERS: Emergency Provider Emergency Medicine; Family Provider Student in an Organized Health Care Education/Training Program; PCP Student in an Organized Health Care Education/Training Program
DX: R10.9 Unspecified abdominal pain (principal)
CPT/HCPCS: 99281

== ENCOUNTER → 2024-01-11 07:48 | Outpatient (CLI) | payer OTHER, SELFPAY ==
[2021-12-20 17:44] VITALS: BMI 31.1
--- NOTE | 2024-01-13 01:01 | DI.NM.S_ITS ---
DATE OF SERVICE: 01/11/2024 PROCEDURE: Pharmacological perfusion study. INDICATIONS: Type 2 [id number] MD, hypertension, hyperlipidemia, diabetes mellitus. RADIOPHARMACEUTICAL: 27.0 millicuries technetium-99m Myoview IV was injected at stress and 26.7 millicuries technetium-99m Myoview IV was injected at rest. CARDIAC STRESS: The patient underwent IV Lexiscan perfusion study under the supervision of an attending staff as per standard protocol. The patient remained hemodynamically stable. Resting blood pressure 170/90. Resting EKG showed sinus rhythm with nonspecific ST-T changes especially in the inferolateral leads. During stress, no new convincing ischemic changes. Had minimal dyspnea. No chest discomfort. Rare PVCs without any significant complex arrhythmias. RAW DATA: There is increased subdiaphragmatic activity. Diaphragmatic shadow seen. The patient's weight is 205. The patient could not keep his arm up. Scanning was done with the arm hanging down. Arm shadow seen as well. GATED STUDY: Resting LV ejection fraction 42% and stress LV ejection fraction 45% with global hypokinesis. Resting end-diastolic volume 186 mL. TID ratio 1.29, which is in the setting of pharmacological perfusion study. Lung/heart ratio abnormal at 0.49. MYOCARDIAL PERFUSION SCAN: 1. Please note that there are no prone images. Stress supine and resting supine images were compared to each other. The patient had predominantly fixed moderate size, mildly decreased perfusion of inferior wall and inferior apex. 2. Patient has a small size, mildly decreased perfusion of mid anterior wall, which is reversible. CONCLUSION: There is a mild reversible ischemia in the mid anterior wall along with fixed, moderate size, mildly decreased perfusion of inferior wall. There are no prone images. On raw data, diaphragmatic shadow is seen. The patient had his arms hanging down. This could be due to tissue attenuation artifact, however, nontransmural myocardial infarction of inferior wall cannot be ruled out. Summed rest score zero, which suggests possibility of tissue attenuation artifact of the inferior wall. Summed stress score of one. Lung/heart ratio is abnormal. Consider 2D echo to make sure there is no diastolic dysfunction or valvular abnormalities as well. Correlate clinically. Khris Guaman - ESAU/danielle/MARIETTA doc#: [id number]/job#: [id number] dd: 01/12/2024 17:03:00 dt: 01/13/2024 00:52:00 DICTATING MD/COPIES TO: Jennyfer Barlow MD COPIES MNE: SHANNEN;
== END ==
PROVIDERS: Family Provider Student in an Organized Health Care Education/Training Program; PCP Student in an Organized Health Care Education/Training Program; Referring Provider Nurse Practitioner; Visit Provider Nurse Practitioner
DX: I50.32 Chronic diastolic (congestive) heart failure (principal)
CPT/HCPCS: 78452; 93017; A9502; J2785